=== PATIENT | female | born 1955 | race Caucasian/White ===

== ENCOUNTER 2016-07-20 11:23 | Emergency (ER) | payer OTHER ==
[~2016-07-20] VITALS: Ht 165.1 cm; Wt 123.0 kg
[~2016-07-20 11:23] MED LIST: AMIT25TA9 PO; CRAN1CAP15 PO; DICY20TA35 PO; FURO40TA3 PO; LISI2.5T5 PO; METO1TAB55 PO; NITR-5 PO; NYST80OI TOP; ROSU40TA PO; SALI1SPR3 INTNAS; SERT-234 PO; SUCR1TAB29 PO
[2016-07-20 11:25] VITALS: Ht 165.1 cm; Wt 123.0 kg
[2016-07-20] MEDS ORDERED: FENTANYL CITRATE INJ 50 MCG/1 ML 2 ML VIAL IV STA (12:02)
[2016-07-20] MEDS ORDERED: ONDANSETRON INJ 2 MG/ML 2 ML VIAL IV STA (12:02)
[2016-07-20] MEDS ORDERED: SODIUM CHLORIDE 0.9% 1000ML 1,000 ML IV STA (12:02)
[2016-07-20 12:48] LABS: ISTAT CREATININE 0.5 mg/dl (0.6-1.3); ISTAT IONIZED CALCIUM 1.16 mmol/l (1.12-1.32)
[2016-07-20 13:19] LABS: ALKALINE PHOSPHATASE 98 U/L (45-117); ALT/SGPT 49 U/L (12-78); AST/SGOT 66 U/L (15-37); BLOOD UREA NITROGEN 9 mg/dl (7-18); BUN/CREATININE RATIO 14.1 (10-20); CARBON DIOXIDE 27 mmol/L (21-32); CHLORIDE 103 mmol/L (98-107); CKMB/CK RATIO 4.6 (0-3.0); CREATININE 0.65 mg/dl (0.60-1.20); GLUCOSE 174 mg/dl (70-99); POTASSIUM 4.3 mmol/L (3.5-5.1); SODIUM 138 mmol/L (136-145)
--- NOTE | 2016-07-20 13:26 | DIAGNOSTIC IMAGING REPORT ---
CT ANGIOGRAM OF THE CHEST CLINICAL HISTORY: Atypical chest pain. COMPARISON STUDY: Chest x-ray dated 07/15/2016. Chest CT dated 10/04/2010. TECHNIQUE: Following the IV administration of 119 cc of Optiray 320, CT angiogram of the chest was performed from the upper abdomen to the thoracic inlet utilizing the pulmonary embolus protocol. Images are reviewed in the axial, sagittal, and coronal planes. 3-D MIPS images are created and assessed. IV contrast was administered without complication. The examination is degraded by large body habitus, with streak artifact from the patient's body wall abutting the CT gantry. CT DOSE: 2494.78 mGy.cm FINDINGS: Thyroid: Imaged portions of the thyroid gland are normal in size and attenuation. Thoracic aorta: There is minimal atherosclerotic calcification of the thoracic aorta, with is normal in caliber and demonstrates standard 3-vessel arch anatomy. No dissection is seen. Pulmonary vasculature: The pulmonary trunk is dilated, measuring 4.0 cm in diameter. This suggests pulmonary artery hypertension. There are no filling defects identified in main, lobar, or proximal segmental pulmonary branches to suggest pulmonary embolus. Evaluation of the peripheral branches is degraded by motion artifact. Heart: The heart is mildly enlarged and without pericardial effusion. Lungs and pleural spaces: Evaluation of the lung parenchyma is degraded by respiratory motion artifact. There is a small right pleural effusion and bibasilar consolidation. The trachea and central airways are clear. Mediastinum: There is no mediastinal lymphadenopathy. Aaliyah: Clear. Axillae: There is no axillary lymphadenopathy. Upper abdomen: The liver is cirrhotic in morphology. Splenomegaly is noted. There is a small hiatal hernia. There are prominent gastrohepatic lymph nodes, which measure up to 1.4 x 2.2 cm. Skeletal structures: The skeletal structures are osteopenic. No lytic or blastic bony lesions are seen. Degenerative change and hyperkyphosis are noted in the thoracic spine. IMPRESSION: 1. Motion degraded examination. 2. There is no evidence of pulmonary embolus in the main, lobar, or proximal segmental pulmonary arteries. 3. Small right pleural effusion and bibasilar dependent consolidation. This likely represents atelectasis. Correlate clinically for evidence of a mild infectious or inflammatory pneumonitis. 4. Cardiomegaly with evidence of pulmonary artery hypertension. 5. Cirrhosis and splenomegaly. See report of abdominal CT performed concurrently for detailed intra-abdominal findings. 6. Additional changes as above. Electronically signed by: Bravo Moe M.D. 07/20/2016 1:24 PM
[2016-07-20 13:29] LABS: BASO % 0.3 %; BASO ABS # 0.02 K/uL (0-0.2); COMPLETE YES; HEMATOCRIT 41.3 % (37-47); IG% 0.2 %; LYMPH % 26.9 %; LYMPH ABS # 1.55 K/uL (1.2-3.4); MEAN CORPUSCULAR HGB CONC 34.1 g/dl (32-36); MEAN PLATELET VOLUME 10.3 fL (7.4-10.4); MONO % 15.3 %; NEUT % 56.3 %; PLATELET COUNT 145 K/uL (130-400); RED BLOOD COUNT 4.86 M/uL (4.2-5.4); WHITE BLOOD COUNT 5.77 K/uL (4.8-10.8)
--- NOTE | 2016-07-20 13:34 | DIAGNOSTIC IMAGING REPORT ---
CT SCAN OF THE ABDOMEN AND PELVIS WITH IV CONTRAST CLINICAL HISTORY: Right flank pain. COMPARISON STUDY: Abdominal CT dated 07/15/2016. TECHNIQUE: Following the IV administration of 119 cc of Optiray 320, CT scan of the abdomen and pelvis is performed from the lung bases to the proximal femora. Images are reviewed in the axial, sagittal, and coronal planes. IV contrast was administered without complication. Automated dose control exposure was utilized. The examination is degraded by large body habitus, with streak artifact from the body wall abutting the CT gantry. CT DOSE: Reported separately and the concurrently performed CT scan of the chest. FINDINGS: Lung bases: The heart is enlarged and without pericardial effusion. There is a small right pleural effusion and bibasilar consolidation. There is a small hiatal hernia. Liver: The contrast-enhanced liver is cirrhotic in morphology and heterogeneous in attenuation. There is nodularity of the hepatic surface contour. The liver is enlarged, measuring 20.6 cm in length. There is evidence of hepatic steatosis. There is minimal central intrahepatic biliary ductal dilatation. The hepatic veins and portal veins are patent. There is recanalization of the periumbilical vein. Gallbladder: Surgically absent noting clips in the gallbladder fossa. Spleen: The spleen is enlarged, measuring 15 cm in length. Pancreas: Mildly atrophic and grossly unremarkable. Adrenal glands: Unremarkable. Kidneys: The contrast enhanced kidneys are normal in size and without hydronephrosis. The kidneys enhance symmetrically. Large retroperitoneal varicosities are identified with a left renal shunt. Abdominal vasculature: The abdominal aorta is normal in course and caliber noting mild atherosclerotic calcification. Bowel: The small bowel and colon are normal in course and caliber. The appendix is not identified and reported surgically absent. Peritoneum: There is no intraperitoneal free air or abdominal ascites. Lymphadenopathy: There are mildly enlarged gastrohepatic lymph nodes. The largest measures 1.4 x 2.2 cm. Prominent portacaval nodes measure up to 2.3 cm in length. There is no retroperitoneal, mesenteric, or pelvic lymphadenopathy. Pelvic viscera: The bladder is normal as visualized. Uterus is surgically absent. No adnexal lesion is seen Skeletal structures: The skeletal structures are osteopenic. Mild lumbosacral spondylosis is observed. No lytic or blastic lesions are seen. IMPRESSION: 1. There are no acute infectious or inflammatory findings in the abdomen or pelvis. 2. The liver is cirrhotic in morphology with evidence of steatosis. 3. Splenomegaly, recanalization of the periumbilical vein, and large retroperitoneal varicosities with a left renal shunt indicate portal hypertension. 4. Small right pleural effusion and bibasilar consolidation. This likely represents atelectasis. Correlate clinically for evidence of superimposed pneumonia. 5. Cardiomegaly. 6. Additional changes as detailed above. Electronically signed by: Bravo Moe M.D. 07/20/2016 1:32 PM
[2016-07-20] MEDS ORDERED: LORA-741 PO (14:23)
[2016-07-20] MEDS ORDERED: DOXY100C PO (14:25)
--- NOTE | 2016-07-20 14:25 | EMERGENCY ROOM VISIT NOTE ---
History Report prepared by Williams: Yash Hollingsworth Under the Supervision of: Dr. Jaya Page M.D. First contact with patient: 11:54 Chief Complaint: ABDOMINAL PAIN Stated Complaint: PAIN IN SIDE AND STOMACH-HERE LAST THU Nursing Triage Summary: continued abd pain from wed and doesn't feel any better History of Present Illness The patient is a 61 year old female who presents to the Emergency Room with complaints of worsening abdominal pain beginning 4 days ago. She has associated back and clavicle pain. She was seen in the ED for similar symptoms 4 days ago, but states that her symptoms have worsened since. The patient had a negative abdominal CT at her previous visit. She has a history of diabetes, renal failure , and liver problems. She has no history of shingles. The patient states that her blood sugars have been good lately. She denies any rashes, diarrhea, or leg swelling. She has a history of an appendectomy and cholecystectomy. The patient describes her pain as "sharp". She notes that she has been having some problems with constipation lately. Source of History: patient Onset: 4 days ago Position: abdomen Quality: sharp Timing: worsening Associated Symptoms: + back pain, No diarrhea Note: The patient denies any leg swelling. She has associated clavicle pain. Review of Systems See HPI for pertinent positives & negatives. A total of 10 systems reviewed and were otherwise negative. Past Medical & Surgical Medical Problems: (1) Depression (2) DM2 (diabetes mellitus, type 2) (3) Emphysema of lung (4) ROME (generalized anxiety disorder) (5) Gastroparesis (6) GERD (gastroesophageal reflux disease) (7) History of left heart catheterization (LHC) (8) HLD (hyperlipidemia) (9) HTN (hypertension) (10) IBS (irritable bowel syndrome) (11) Influenza A (12) Kidney stone (13) GARRETT on CPAP (14) Pneumonia (15) SIRS (systemic inflammatory response syndrome) Surgical Problems: (1) H/O esophagogastroduodenoscopy (2) History of appendectomy (3) History of cholecystectomy (4) S/P appendectomy (5) S/P cholecystectomy (6) S/P VA-BSO Family History Diabetes mellitus Gallbladder disease Heart disease Hypertension Kidney disease Kidney stones Social History Smoking Status: Never Smoker Alcohol Use: none Marital Status: Housing Status: lives with family Occupation Status: unemployed Current/Historical Medications Scheduled Amitriptyline Hcl (Elavil), 25 MG PO HS Aspirin (Aspirin Ec), 81 MG PO QAM Doxycycline Hyclate (Vibramycin), 100 MG PO BID Insulin Regular (Human) (Humulin R U-500 (Concentr), 130 UNITS SQ BID Lisinopril (Lisinopril), 2.5 MG PO QAM Metoclopramide Hcl (Reglan), 5 MG PO UD Multivitamin (Multivitamin), 1 TAB PO QAM Nitrofurantoin Monohyd Macrocr (Macrobid), 100 MG PO BID Nitroglycerin (Nitrostat), 0.4 MG UT PRN Omeprazole (Prilosec), 20 MG PO DAILY Rosuvastatin Calcium (Crestor), 40 MG PO HS Saline (Saline Nasal [place]), 2 SPRAYS INTNAS PRN Sucralfate (Carafate), 1 GM PO AC Scheduled PRN Lorazepam (Ativan), 0.5-1 MG PO TID PRN for Pain Nystatin (Topical) (Nystatin), 1 APPLN TOP BID PRN for PRN Polyethylene Glycol 3350 (Miralax), 17 GM PO BID PRN for Constipation Sertraline (Zoloft), 100 MG PO QAM PRN for Anxiety Solifenacin (Vesicare), 10 MG PO DAILY PRN for PRN Tramadol (Ultram), 100 MG PO Q6 PRN for Pain Allergies Coded Allergies: Ciprofloxacin (Verified Allergy, Unknown, MOUTH BLISTERS, HIVES, 07/20/16) Morphine (Verified Allergy, Unknown, HIVES, "DEATHLY ILL", THROWS UP, ) Oxycodone (Verified Allergy, Unknown, HIVES, VOMITING, 07/20/16) Penicillin V (Verified Allergy, Unknown, HIVES, 07/20/16) Physical Exam Vital Signs Date Time Temp Pulse Resp B/P Pulse Ox O2 Delivery O2 Flow Rate FiO2 07/20/16 14:47 36.8 83 18 129/61 97 07/20/16 11:25 36.8 85 20 153/78 93 Room Air Physical Exam GENERAL: Patient is uncomfortable appearing and in mild distress. HEENT: No acute trauma, normocephalic atraumatic, mucous membranes moist, no nasal congestion, no scleral icterus. NECK: No stridor, no adenopathy, no meningismus, trachea is midline. LUNGS: No dyspnea. Clear to auscultation and equal bilaterally. No wheeze, no rhonchi. HEART: Regular rate and rhythm. No murmurs, rubs, gallops appreciated. CHEST: Vague right sided clavicle tenderness. ABDOMEN: Vague right sided abdominal tenderness. Soft, bowel sounds positive, no masses appreciated, no peritonitis. BACK: No midline tenderness, no CVA tenderness EXTREMITIES: Normal motion all extremities, no cyanosis, no edema. NEUROLOGIC: Alert and oriented, no acute motor or sensory deficits, no focal weakness, cranial nerves grossly intact. SKIN: No rash, no jaundice, no diaphoresis. Medical Decision & Procedures ER Provider Diagnostic Interpretation: X ray results and stated below per my interpretation and radiologist interpretation. CT SCAN OF THE ABDOMEN AND PELVIS WITH IV CONTRAST FINDINGS: Lung bases: The heart is enlarged and without pericardial effusion. There is a small right pleural effusion and bibasilar consolidation. There is a small hiatal hernia. Liver: The contrast-enhanced liver is cirrhotic in morphology and heterogeneous in attenuation. There is nodularity of the hepatic surface contour. The liver is enlarged, measuring 20.6 cm in length. There is evidence of hepatic steatosis. There is minimal central intrahepatic biliary ductal dilatation. The hepatic veins and portal veins are patent. There is recanalization of the periumbilical vein. Gallbladder: Surgically absent noting clips in the gallbladder fossa. Spleen: The spleen is enlarged, measuring 15 cm in length. Pancreas: Mildly atrophic and grossly unremarkable. Adrenal glands: Unremarkable. Kidneys: The contrast enhanced kidneys are normal in size and without hydronephrosis. The kidneys enhance symmetrically. Large retroperitoneal varicosities are identified with a left renal shunt. Abdominal vasculature: The abdominal aorta is normal in course and caliber noting mild atherosclerotic calcification. Bowel: The small bowel and colon are normal in course and caliber. The appendix is not identified and reported surgically absent. Peritoneum: There is no intraperitoneal free air or abdominal ascites. Lymphadenopathy: There are mildly enlarged gastrohepatic lymph nodes. The largest measures 1.4 x 2.2 cm. Prominent portacaval nodes measure up to 2.3 cm in length. There is no retroperitoneal, mesenteric, or pelvic lymphadenopathy. Pelvic viscera: The bladder is normal as visualized. Uterus is surgically absent. No adnexal lesion is seen Skeletal structures: The skeletal structures are osteopenic. Mild lumbosacral spondylosis is observed. No lytic or blastic lesions are seen. IMPRESSION: 1. There are no acute infectious or inflammatory findings in the abdomen or pelvis. 2. The liver is cirrhotic in morphology with evidence of steatosis. 3. Splenomegaly, recanalization of the periumbilical vein, and large retroperitoneal varicosities with a left renal shunt indicate portal hypertension. 4. Small right pleural effusion and bibasilar consolidation. This likely represents atelectasis. Correlate clinically for evidence of superimposed pneumonia. 5. Cardiomegaly. 6. Additional changes as detailed above. Electronically signed by: Bravo Moe M.D. CT ANGIOGRAM OF THE CHEST FINDINGS: Thyroid: Imaged portions of the thyroid gland are normal in size and attenuation. Thoracic aorta: There is minimal atherosclerotic calcification of the thoracic aorta, with is normal in caliber and demonstrates standard 3-vessel arch anatomy. No dissection is seen. Pulmonary vasculature: The pulmonary trunk is dilated, measuring 4.0 cm in diameter. This suggests pulmonary artery hypertension. There are no filling defects identified in main, lobar, or proximal segmental pulmonary branches to suggest pulmonary embolus. Evaluation of the peripheral branches is degraded by motion artifact. Heart: The heart is mildly enlarged and without pericardial effusion. Lungs and pleural spaces: Evaluation of the lung parenchyma is degraded by respiratory motion artifact. There is a small right pleural effusion and bibasilar consolidation. The trachea and central airways are clear. Mediastinum: There is no mediastinal lymphadenopathy. Aaliyah: Clear. Axillae: There is no axillary lymphadenopathy. Upper abdomen: The liver is cirrhotic in morphology. Splenomegaly is noted. There is a small hiatal hernia. There are prominent gastrohepatic lymph nodes, which measure up to 1.4 x 2.2 cm. Skeletal structures: The skeletal structures are osteopenic. No lytic or blastic bony lesions are seen. Degenerative change and hyperkyphosis are noted in the thoracic spine. IMPRESSION: 1. Motion degraded examination. 2. There is no evidence of pulmonary embolus in the main, lobar, or proximal segmental pulmonary arteries. 3. Small right pleural effusion and bibasilar dependent consolidation. This likely represents atelectasis. Correlate clinically for evidence of a mild infectious or inflammatory pneumonitis. 4. Cardiomegaly with evidence of pulmonary artery hypertension. 5. Cirrhosis and splenomegaly. See report of abdominal CT performed concurrently for detailed intra-abdominal findings. 6. Additional changes as above. Electronically signed by: Bravo Moe M.D. Laboratory Results 07/20/16 13:14 Red Blood Count 4.86, Mean Corpuscular Volume 85.0, Mean Corpuscular Hemoglobin 29.0, Mean Corpuscular Hemoglobin Concent 34.1, Mean Platelet Volume 10.3, Neutrophils (%) (Auto) 56.3, Lymphocytes (%) (Auto) 26.9, Monocytes (%) (Auto) 15.3, Eosinophils (%) (Auto) 1.0, Basophils (%) (Auto) 0.3, Neutrophils # (Auto ) 3.25, Lymphocytes # (Auto) 1.55, Monocytes # (Auto) 0.88, Eosinophils # (Auto ) 0.06, Basophils # (Auto) 0.02 07/20/16 12:30 Test 07/20/16 12:30 07/20/16 12:31 07/20/16 13:14 Est Creatinine Clear Calc Drug Dose 119.7 ml/min Estimated GFR () 111.1 Estimated GFR (Non- 95.8 BUN/Creatinine Ratio 14.1 (10-20) Calcium Level 9.0 mg/dl (8.5-10.1) Total Bilirubin 0.7 mg/dl (0.2-1) Direct Bilirubin 0.2 mg/dl (0-0.2) Aspartate Amino Transf (AST/SGOT) 66 U/L (15-37) Alanine Aminotransferase (ALT/SGPT) 49 U/L (12-78) Alkaline Phosphatase 98 U/L (45-117) Total Creatine Kinase 63 U/L (26-192) Creatine Kinase MB 2.9 ng/ml (0.5-3.6) Creatine Kinase MB Ratio 4.6 (0-3.0) Troponin I < 0.015 ng/ml (0-0.045) Total Protein 7.9 gm/dl (6.4-8.2) Albumin 3.1 gm/dl (3.4-5.0) Lipase 69 U/L (73-393) Chemistry Specimen Hemolysis Bedside Hemoglobin 15.0 g/dl (12.0-16.0) Bedside Hematocrit 44 % (37-47) Bedside Sodium 138 mEq/L (135-144) Bedside Potassium 5.3 mEq/L (3.3-5.0) Bedside Chloride 99 mEq/L (101-112) Bedside Total CO2 29 mEq/l (24-31) Anion Gap 16.0 mmol/L (16-25) Bedside Blood Urea Nitrogen 13 mg/dl (7-18) Bedside Creatinine 0.5 mg/dl (0.6-1.3) Bedside Glucose (other) 180 mg/dl (70-99) Bedside Ionized Calcium (Darell) 1.16 mmol/l (1.12-1.32) White Blood Count 5.77 K/uL (4.8-10.8) Red Blood Count 4.86 M/uL (4.2-5.4) Hemoglobin 14.1 g/dL (12.0-16.0) Hematocrit 41.3 % (37-47) Mean Corpuscular Volume 85.0 fL (80-100) Mean Corpuscular Hemoglobin 29.0 pg (25-34) Mean Corpuscular Hemoglobin Concent 34.1 g/dl (32-36) Platelet Count 145 K/uL (130-400) Mean Platelet Volume 10.3 fL (7.4-10.4) Neutrophils (%) (Auto) 56.3 % Lymphocytes (%) (Auto) 26.9 % Monocytes (%) (Auto) 15.3 % Eosinophils (%) (Auto) 1.0 % Basophils (%) (Auto) 0.3 % Neutrophils # (Auto) 3.25 K/uL (1.4-6.5) Lymphocytes # (Auto) 1.55 K/uL (1.2-3.4) Monocytes # (Auto) 0.88 K/uL (0.11-0.59) Eosinophils # (Auto) 0.06 K/uL (0-0.5) Basophils # (Auto) 0.02 K/uL (0-0.2) RDW Standard Deviation 46.0 fL (36.4-46.3) RDW Coefficient of Variation 14.9 % (11.5-14.5) Immature Granulocyte % (Auto) 0.2 % Immature Granulocyte # (Auto) 0.01 K/uL (0.00-0.02) Laboratory results as reviewed by me. Medications Administered Medications (Trade) Dose Ordered Sig/Penny Route Start Time Stop Time Status Last Admin Dose Admin Sodium Chloride (Nss 1000ml) 1,000 ml @ 999 mls/hr Q1H1M STAT IV 07/20/16 12:02 07/20/16 13:02 DC 07/20/16 13:18 999 MLS/HR Fentanyl Citrate (Fentanyl Inj) 100 mcg NOW STAT IV 07/20/16 12:02 07/20/16 12:04 DC 07/20/16 12:48 100 MCG Ondansetron HCl (Zofran Inj) 4 mg NOW STAT IV 07/20/16 12:02 07/20/16 12:04 DC 07/20/16 12:48 4 MG Doxycycline Hyclate (Vibramycin Cap) 100 mg ONE ONCE PO 07/20/16 14:30 07/20/16 14:36 DC 07/20/16 14:38 100 MG ECG Indication: chest pain Rate (beats per minute): 83 Rhythm: normal sinus Findings: no acute ischemic change, no ectopy ED Course 1156: The patient was evaluated in room A10. A complete history and physical exam was performed. 1202: Ordered Zofran 4 mg IV, Fentanyl Inj 100 mcg IV, NSS 1000 mL @ 999 mL/hr IV. 1416: Reevaluated the patient. She would like to go home. Discussed results and discharge instructions: she verbalized understanding and agreement. 1430: The patient is ready for discharge. Ordered Vibramycin Cap 100 mg PO. Medical Decision Differential: Renal Colic, Pyelonephritis, Hydronephrosis, Appendicitis, Diverticulitis, Retroperitoneal Bleed/Infection, Aortic Pathology, MSK, Neurologic Pathology, amongst other pathologies entertained. 61 yr old female arrives with complaint of right abdominal pain radiating to right chest, clavicle and associated SHOB. Just here a few days ago with normal work-up though pain continues. Highly allergic to narcotics but tolerates Fentanyl without issue. Given persistent pain and complaints felt compelled to repeat CT abdo/pelv and with pleuritic component and right chest pain to rule out PE with CT. Labs, etc look good. She does have a slight increase in right pleural effusion which could be infectious and macrobid would not treat. Given this is second visit, continued pain and uncomfortable we will do Levaquin. She notes she is unable to sleep with this due to discomfort. Already tried tramadol without improvement. Allergic to all PO narcotics, thus will try some ativan instead. She is aware of risks and restrictions. Impression Primary Impression: Pleural effusion on right Scribe Attestation The scribe's documentation has been prepared under my direction and personally reviewed by me in its entirety. I confirm that the note above accurately reflects all work, treatment, procedures, and medical decision making performed by me. Departure Information Dispostion Home / Self-Care Prescriptions Doxycycline Hyclate (VIBRAMYCIN) 100 Mg Cap 100 MG PO BID for 10 Days, #20 CAP Prov: Jaya Page M.D. 07/20/16 Lorazepam (ATIVAN) 0.5 Mg Tab 0.5-1 MG PO TID Y for Pain, #15 TAB Prov: Jaya Page M.D. 07/20/16 Referrals Gilberto Hart M.D. (PCP) Patient Instructions [facility], [facility] Additional Instructions It may be your pain is due to the small amount of fluid below your right lung. This is possibly due to an infection. Keep well hydrated and make sure to periodically take deep breaths. Return if worsening pain, trouble breathing or other concerns. You have received a benzodiazepine medication prescription. These medications may cause drowsiness and should not be used with other sedative medications. Do not drive, drink alcohol, perform dangerous activities, nor make important decisions after taking these medications. buttermaker helper use or inappropriate use may lead to addiction. Follow up with your primary care provider in the next few days.
[2016-07-20] MEDS ORDERED: DOXYCYCLINE HYCLATE 100 MG CAP PO ONE (14:30)
[2016-07-20 14:47] VITALS: BP 129/61; PULSE 83; TEMP 36.8; O2SAT 97
[2017-01-31] MEDS ORDERED: MULT-506 PO (12:20)
[2017-01-31] MEDS ORDERED: NTRGSL/4 UT (15:11)
[2017-01-31] MEDS ORDERED: ASPI81TA28 PO (20:08)
[2017-01-31] MEDS ORDERED: SOLI10TA2 PO (20:08)
[2017-01-31] MEDS ORDERED: POLY335019 PO (20:08)
[2017-01-31] MEDS ORDERED: TRAM-10 PO (20:08)
[2017-01-31] MEDS ORDERED: ROSU40TA28 PO (21:50)
[2017-01-31] MEDS ORDERED: DTR/5 PO (23:48)
[2017-02-02] MEDS ORDERED: SPRN100 PO (13:12)
[2017-07-29] MEDS ORDERED: LSX80 PO (09:40)
== END 2016-07-20 14:48 | disposition home or self-care (01) ==
LOC: C.EDB 11:24 → C.EDA 14:48
DX: J90 Pleural effusion, not elsewhere classified (principal); E11.29 Type 2 diabetes mellitus with other diabetic kidney complication; N19 Unspecified kidney failure; E11.43 Type 2 diabetes mellitus with diabetic autonomic (poly)neuropathy; Z79.4 Long term (current) use of insulin; Z79.82 Long term (current) use of aspirin; I27.2 Other secondary pulmonary hypertension; K74.60 Unspecified cirrhosis of liver; K21.9 Gastro-esophageal reflux disease without esophagitis; K44.9 Diaphragmatic hernia without obstruction or gangrene; K76.0 Fatty (change of) liver, not elsewhere classified; K76.6 Portal hypertension; E78.5 Hyperlipidemia, unspecified; I10 Essential (primary) hypertension; G47.33 Obstructive sleep apnea (adult) (pediatric); M47.817 Spondylosis without myelopathy or radiculopathy, lumbosacral region

== ENCOUNTER 2017-01-31 20:34 | Inpatient (IN) | payer OTHER ==
[~2017-01-31] VITALS: Ht 165.1 cm; Wt 121.7 kg
[~2017-01-31 20:34] MED LIST changes: +ASPI81TA28 PO; -CRAN1CAP15 PO; -DICY20TA35 PO; -FURO40TA3 PO; +MULT-506 PO; -NITR-5 PO; +NTRGSL/4 UT; +POLY335019 PO; +SOLI10TA2 PO; +TRAM-10 PO
[2017-01-31 21:31] LABS: BASO % 0.3 %; BASO ABS # 0.02 K/uL (0-0.2); COMPLETE YES; EOS % 1.2 %; IG% 0.1 %; LYMPH % 28.4 %; LYMPH ABS # 2.21 K/uL (1.2-3.4); MEAN CELL VOLUME 87.6 fL (80-100); MEAN CORPUSCULAR HEMOGLOBIN 29.9 pg (25-34); MEAN CORPUSCULAR HGB CONC 34.2 g/dl (32-36); MEAN PLATELET VOLUME 11.5 fL (7.4-10.4); MONO % 16.4 %; NEUT % 53.6 %; PLATELET COUNT 164 K/uL (130-400); RED BLOOD COUNT 5.71 M/uL (4.2-5.4); WHITE BLOOD COUNT 7.79 K/uL (4.8-10.8)
[2017-01-31] MEDS ORDERED: INSUINJ2 SC (21:37)
--- NOTE | 2017-01-31 21:42 | DIAGNOSTIC IMAGING REPORT ---
CHEST ONE VIEW PORTABLE CLINICAL HISTORY: CHEST PAIN dyspnea COMPARISON STUDY: 07/15/2016 FINDINGS: Mild stable cardiomegaly. Lungs are clear. Diaphragms are smooth. IMPRESSION: Mild stable cardiomegaly. Otherwise negative study The above report was generated using voice recognition software. It may contain grammatical, syntax or spelling errors. Electronically signed by: Aneesh Rodriguez M.D. 01/31/2017 9:40 PM Dictated Date/Time: 01/31/2017 9:40 PM
[2017-01-31 21:46] LABS: ALT/SGPT 48 U/L (12-78); BLOOD UREA NITROGEN 19 mg/dl (7-18); BUN/CREATININE RATIO 16.8 (10-20); CALCIUM 10.1 mg/dl (8.5-10.1); CARBON DIOXIDE 31 mmol/L (21-32); CHLORIDE 96 mmol/L (98-107); GLUCOSE 228 mg/dl (70-99); POTASSIUM 3.7 mmol/L (3.5-5.1); SODIUM 137 mmol/L (136-145)
[2017-01-31] MEDS ORDERED: OMEP20CA9 PO (21:49)
[2017-01-31 21:50] LABS: ALKALINE PHOSPHATASE 95 U/L (45-117); AST/SGOT 58 U/L (15-37)
[2017-01-31] MEDS ORDERED: SNG10 PO (21:50)
[2017-01-31] MEDS ORDERED: EMPA1TAB PO (21:50)
[2017-01-31] MEDS ORDERED: LSX40 PO (21:50)
[2017-01-31] MEDS ORDERED: AMT25 PO (21:50)
[2017-01-31] MEDS ORDERED: ROSU40TA18 PO (21:50)
[2017-01-31] MEDS ORDERED: ATV5X PO (21:50)
[2017-01-31] MEDS ORDERED: METO10TA3 PO (21:50)
[2017-01-31] MEDS ORDERED: LSN25 PO (21:50)
[2017-01-31] MEDS ORDERED: DTR5 PO (21:50)
[2017-01-31] MEDS ORDERED: SPRN100 PO (21:50)
[2017-01-31] MEDS ORDERED: FLNIN/ NAE (21:50)
[2017-01-31] MEDS ORDERED: INSU1SOL SC (21:50)
[2017-01-31] MEDS ORDERED: ALBU18002 INH (21:50)
[2017-01-31] MEDS ORDERED: PHEN-1043 PO (21:50)
[2017-01-31] MEDS ORDERED: METO2.5T PO (21:56)
[2017-01-31] MEDS ORDERED: CRANCAP4 PO (21:56)
[2017-01-31] MEDS ORDERED: DOXY1TAB6 PO (21:56)
[2017-01-31] MEDS ORDERED: NITROGLYCERIN OINT 2% 1GM PACKET EXT STA (21:57)
[2017-01-31] MEDS ORDERED: NITROGLYCERIN OINT 2% 1GM PACKET ONE (22:05)
--- NOTE | 2017-01-31 22:50 | EMERGENCY ROOM VISIT NOTE ---
History Report prepared by Williams: Angelina Sutton Under the Supervision of: Dr. Medhi Woodard M.D. (Angelina Sutton) First contact with patient: 20:44 Chief Complaint: WEAKNESS Stated Complaint: WEAKNESS, SOB, CHEST DISCOMFORT History of Present Illness The patient is a 61 year old female who presents to the Emergency Room with complaints of an episode of weakness starting today. The patient reports that she went to her production solderer yesterday for her annual check-up and was started on Lasix. She states she has been taking them. The patient reports that this morning she had some wheezing and this evening started to become short of breath with exertion. She states that she started becoming short of breath while doing laundry and then started to experience weakness and diaphoresis. She reports that she had chest pain that radiated to her left arm and neck. She reports that her production solderer told her to call the ambulance if she experienced any symptoms. The patient states that as she rested and waited for the ambulance , the pain subsided. The patient notes that she took an Aspirin this morning. The patient denies fevers and chills. The patient notes a history of diabetes, hypertension, skin cancer, and MRSA. Source of History: patient Onset: this evening Position: other (global) Quality: other (global) Timing: other (episode) Modifying Factors (Worsening): exertion Modifying Factors (Relieving): rest Associated Symptoms: + diaphoresis, + neck pain, + chest pain, + SOB, No fevers, No chills Note: The patient complains of radiating pain into her arm. Review of Systems See HPI for pertinent positives & negatives. A total of 10 systems reviewed and were otherwise negative. Past Medical & Surgical Medical Problems: (1) Depression (2) DM2 (diabetes mellitus, type 2) (3) Emphysema of lung (4) ROME (generalized anxiety disorder) (5) Gastroparesis (6) GERD (gastroesophageal reflux disease) (7) History of left heart catheterization (LHC) (8) History of skin cancer (9) HLD (hyperlipidemia) (10) HTN (hypertension) (11) Hx MRSA infection (12) IBS (irritable bowel syndrome) (13) Influenza A (14) Kidney stone (15) GARRETT on CPAP (16) Pneumonia (17) Shortness of breath (18) SIRS (systemic inflammatory response syndrome) Surgical Problems: (1) H/O esophagogastroduodenoscopy (2) History of appendectomy (3) History of cholecystectomy (4) S/P appendectomy (5) S/P cholecystectomy (6) S/P VA-BSO Family History Diabetes mellitus Gallbladder disease Heart disease Hypertension Kidney disease Kidney stones Social History Smoking Status: Never Smoker Alcohol Use: none Marital Status: Housing Status: lives with family Occupation Status: unemployed Current/Historical Medications Scheduled Amitriptyline HCl (Amitriptyline HCl), 25 MG PO HS Aspirin (Aspirin Ec), 81 MG PO QAM Cranberry-Vitamin C-Vitamin E (Cranberry Plus Vitamin C 4200-20-3 mg-Unit), 1 CAP PO BID Doxycycline Hyclate (Doxycycline Hyclate), 100 MG PO BID Empagliflozin (Jardiance), 10 MG PO DAILY Furosemide (Lasix), 80 MG PO DAILY Insulin Regular (Human) (Humulin R U-500 (Concentr), 110 UNITS SC HS Insulin Regular (Human) (Humulin R U-500 Kwikpen), 160 UNITS SC QAM Lisinopril (Lisinopril), 2.5 MG PO QAM Metolazone (Zaroxolyn), 2.5 MG PO 2-3 TIMES WEEK Montelukast Sod (Montelukast Sodium), 10 MG PO HS Multivitamin (Multivitamin), 1 TAB PO QAM Omeprazole (Prilosec), 20 MG PO DAILY Rosuvastatin Calcium (Rosuvastatin Calcium), 40 MG PO HS Sertraline (Zoloft), 100 MG PO DAILY Spironolactone (Spironolactone), 100 MG PO BID Sucralfate (Carafate), 1 TAB PO AC Scheduled PRN Albuterol Sulfate (Proair Respiclick), 2 PUFFS INH Q4H PRN for Chest Pain/Cough or SOB Fluticasone Propionate (Fluticasone Propionate), 2 SPRAYS SONALI HS PRN for Allergy Symptoms Lorazepam (Lorazepam), 0.5-1 MG PO TID PRN for Anxiety Nitroglycerin (Nitrostat), 0.4 MG UT UD PRN for Esophageal Spasm Oxybutynin Chloride (Ditropan), 1 TAB PO TID PRN for incontinence Phenazopyridine HCl (Phenazopyridine HCl), 200 MG PO PC PRN for Urination Pain Polyethylene Glycol 3350 (Miralax), 17 GM PO DAILY PRN for Constipation Tramadol (Ultram), 100 MG PO Q6H PRN for Pain Allergies Coded Allergies: Ciprofloxacin (Verified Allergy, Unknown, MOUTH BLISTERS, HIVES, 07/20/16) Morphine (Verified Allergy, Unknown, HIVES, "DEATHLY ILL", THROWS UP, ) Oxycodone (Verified Allergy, Unknown, HIVES, VOMITING, 07/20/16) Penicillin V (Verified Allergy, Unknown, HIVES, 07/20/16) Physical Exam Vital Signs Date Time Temp Pulse Resp B/P (MAP) Pulse Ox O2 Delivery O2 Flow Rate FiO2 01/31/17 22:10 86 20 128/73 01/31/17 21:22 94 Room Air 01/31/17 21:22 94 Room Air 01/31/17 21:13 83 01/31/17 21:06 36.9 84 22 138/71 94 Room Air 01/31/17 21:00 94 Room Air Physical Exam GENERAL: Patient is a healthy-appearing well-nourished HEAD: Normocephalic atraumatic EYES: Ocular movements intact pupils equal and react to light OROPHARYNX mucous membranes are moist no exudates present no erythema or edema present NECK: Supple no nuchal rigidity CHEST: Good equal expansion LUNGS: Clear and equal to auscultation CARDIAC: Normal S1 and S2 ABDOMEN: Soft nontender no guarding BACK: No CVA tenderness EXTREMITIES: No pain upon palpation normal muscle strength in all groups no clubbing cyanosis or edema NEURO: Patient is following commands and answering questions appropriately. Alert and oriented x3 Cranial Nerves 2-12 grossly intact Medical Decision & Procedures ER Provider Diagnostic Interpretation: Radiology results as stated below per my review and radiologist interpretation: CHEST ONE VIEW PORTABLE CLINICAL HISTORY: CHEST PAIN dyspnea COMPARISON STUDY: 07/15/2016 FINDINGS: Mild stable cardiomegaly. Lungs are clear. Diaphragms are smooth. IMPRESSION: Mild stable cardiomegaly. Otherwise negative study The above report was generated using voice recognition software. It may contain grammatical, syntax or spelling errors. Electronically signed by: Aneesh Rodriguez M.D. 01/31/2017 9:40 PM Dictated Date/Time: 01/31/2017 9:40 PM Laboratory Results Test 01/31/17 21:13 Immature Granulocyte % (Auto) 0.1 % White Blood Count 7.79 K/uL (4.8-10.8) Red Blood Count 5.71 M/uL (4.2-5.4) Hemoglobin 17.1 g/dL (12.0-16.0) Hematocrit 50.0 % (37-47) Mean Corpuscular Volume 87.6 fL (80-100) Mean Corpuscular Hemoglobin 29.9 pg (25-34) Mean Corpuscular Hemoglobin Concent 34.2 g/dl (32-36) Platelet Count 164 K/uL (130-400) Mean Platelet Volume 11.5 fL (7.4-10.4) Neutrophils (%) (Auto) 53.6 % Lymphocytes (%) (Auto) 28.4 % Monocytes (%) (Auto) 16.4 % Eosinophils (%) (Auto) 1.2 % Basophils (%) (Auto) 0.3 % Neutrophils # (Auto) 4.18 K/uL (1.4-6.5) Lymphocytes # (Auto) 2.21 K/uL (1.2-3.4) Monocytes # (Auto) 1.28 K/uL (0.11-0.59) Eosinophils # (Auto) 0.09 K/uL (0-0.5) Basophils # (Auto) 0.02 K/uL (0-0.2) Immature Granulocyte # (Auto) 0.01 K/uL (0.00-0.02) Prothrombin Time 12.0 SECONDS (9.0-12.0) Prothromb Time International Ratio 1.1 (0.9-1.1) Total Bilirubin 0.9 mg/dl (0.2-1) Direct Bilirubin mg/dl (0-0.2) Aspartate Amino Transf (AST/SGOT) 58 U/L (15-37) Alanine Aminotransferase (ALT/SGPT) 48 U/L (12-78) Alkaline Phosphatase 95 U/L (45-117) Pro-B-Type Natriuretic Peptide 23 pg/ml (0-900) Total Protein 8.9 gm/dl (6.4-8.2) Albumin 3.6 gm/dl (3.4-5.0) Lipase 171 U/L (73-393) Chemistry Specimen Hemolysis Labs reviewed by ED physician. Medications Administered Medications (Trade) Dose Ordered Sig/Penny Route Start Time Stop Time Status Last Admin Dose Admin Nitroglycerin (Nitroglycerin 2% Oint) 1 inch NOW STAT EXT 01/31/17 21:57 01/31/17 21:59 DC 01/31/17 22:08 1 INCH ECG Indication: weakness Rate (beats per minute): 78 Rhythm: normal sinus Findings: no acute ischemic change, no ectopy ED Course 2043: Past medical records reviewed. The patient was evaluated in room A11B. A complete history and physical examination was performed. 2156: Ordered Nitroglycerin 1 inch EXT. 2201: I discussed the patient's case with Dr. Murillo, she has agreed to evaluate the patient for further management and care. Medical Decision Medication Reconciliation: I attest that I have personally reviewed the patient' s current medication list Blood Pressure Screening: Patient was found to have an elevated blood pressure and will be further evaluated by the hospitalist. Differential diagnosis: Etiologies such as cardiac ischemia, aortic dissection, pulmonary embolism, pneumonia, pneumothorax, musculoskeletal, infections, pericarditis, myocarditis , esophageal rupture, gastrointestinal, as well as others were entertained. This is a 61-year-old female who presents emergency department complaining of chest pain. The patient has a normal EKG however she has elevations in her CK and MB fraction. I did discuss the case with the hospitalist service who agreed to admit the patient. Patient family were in agreement with the treatment plan. Consults Time Called: 2158 Consulting Physician: Dr. Murillo Returned Call: 2201 I discussed the patient's case with Dr. Murillo, she has agreed to evaluate the patient for further management and care. Impression Primary Impression: Chest pain Scribe Attestation The scribe's documentation has been prepared under my direction and personally reviewed by me in its entirety. I confirm that the note above accurately reflects all work, treatment, procedures, and medical decision making performed by me. Departure Information Dispostion Being Evaluated By Hospitalist Referrals Gilberto Hart M.D. (PCP) Patient Instructions My [facility] Problem Qualifiers Primary Impression: Chest pain Chest pain type: unspecified Qualified Codes: R07.9 - Chest pain, unspecified
[2017-01-31] MEDS ORDERED: POLYETHYLENE (MIRALAX) 17 GM PACK PO PRN (23:30)
[2017-01-31] MEDS ORDERED: ACETAMINOPHEN 325 MG TAB PO PRN (23:30)
[2017-01-31] MEDS ORDERED: NITROGLYCERIN OINT 2% 1GM PACKET EXT PRN (23:30)
[2017-01-31] MEDS ORDERED: ASPIRIN 81 MG CHEW PO STA (23:42)
[2017-01-31 23:45] LABS: INR 1.1 (0.9-1.1)
[2017-01-31] MEDS ORDERED: GLUCOSE 40% GEL 15 GM TUBE PO PRN (23:45)
[2017-01-31] MEDS ORDERED: GLUCAGON FOR INJ 1 MG VIAL SQ PRN (23:45)
[2017-01-31] MEDS ORDERED: GLUCOSE 10 TABS/TUBE PO PRN (23:45)
[2017-01-31] MEDS ORDERED: DEXTROSE 50% 50 ML SYR IV PRN (23:45)
[2017-01-31] MEDS ORDERED: FRS/80 PO (23:48)
[2017-01-31] MEDS ORDERED: OXYB5TAB74 PO (23:48)
[2017-02-01] VITALS (8 sets, daily range): BP systolic 94–151; BP diastolic 57–74; PULSE 77–91; TEMP 36.4–36.7; O2SAT 92–96; Ht 165.1 cm; Wt 121.7 kg
[2017-02-01] MEDS ORDERED: TRAMADOL HCL 50 MG TAB PO PRN
[2017-02-01] MEDS ORDERED: LORAZEPAM 0.5 MG TAB PO PRN
[2017-02-01] MEDS ORDERED: FLUTICASONE PROPIONATE NA SPR 16 GM BTL NAE PRN
[2017-02-01] MEDS ORDERED: ALBUTEROL HFA 8 GM INHALER INH PRN
[2017-02-01] MEDS ORDERED: PHARMACY GLYCEMIC MGMT CONSULT PRN (00:27)
[2017-02-01] MEDS ORDERED: FLUCONAZOLE 100 MG TAB PO STA (00:28)
[2017-02-01] MEDS ORDERED: INSULIN ASPART 100 UNITS/ML 3 ML PEN SC STA (00:43)
[2017-02-01] MEDS ORDERED: INSULIN GLARGINE SOLOSTAR 100 UNITS/ML 3 ML PEN SC STA (00:44)
[2017-02-01] MEDS: ROSUVASTATIN CALCIUM 20 MG TAB PO SCH ×2 (01:02→19:28)
[2017-02-01 02:58] LABS: HEMATOCRIT 48.3 % (37-47); MEAN CELL VOLUME 86.7 fL (80-100); MEAN CORPUSCULAR HEMOGLOBIN 28.9 pg (25-34); MEAN CORPUSCULAR HGB CONC 33.3 g/dl (32-36); MEAN PLATELET VOLUME 10.6 fL (7.4-10.4); PLATELET COUNT 168 K/uL (130-400); RED BLOOD COUNT 5.57 M/uL (4.2-5.4); WHITE BLOOD COUNT 8.02 K/uL (4.8-10.8)
[2017-02-01 03:15] LABS: BLOOD UREA NITROGEN 20 mg/dl (7-18); BUN/CREATININE RATIO 20.8 (10-20); CALCIUM 9.8 mg/dl (8.5-10.1); CARBON DIOXIDE 34 mmol/L (21-32); CHLORIDE 95 mmol/L (98-107); CREATININE 0.97 mg/dl (0.60-1.20); GLUCOSE 197 mg/dl (70-99); MAGNESIUM 1.9 mg/dl (1.8-2.4); POTASSIUM 3.9 mmol/L (3.5-5.1); SODIUM 138 mmol/L (136-145)
[2017-02-01 03:21] LABS: CHOLESTEROL 165 mg/dl (0-200); CHOLESTEROL/HDL RATIO 2.7; CKMB/CK RATIO 0.7 (0-3.0); HDL CHOLESTEROL 61 mg/dl; LDL CHOLESTEROL CALCULATED 83 mg/dl; TRIGLYCERIDES 105 mg/dl (0-150); VERY LOW DENSITY LIPOPROT CALC 21 mg/dl
[2017-02-01] MEDS ORDERED: INSULIN ASPART 100 UNITS/ML 3 ML PEN SC SCH (04:00)
[2017-02-01] MEDS ORDERED: SERT-234 PO (04:38)
[2017-02-01] MEDS ORDERED: SUCR1TAB29 PO (04:40)
--- NOTE | 2017-02-01 04:42 | History and Physical ---
History & Physical Date & Time of Service: Jan 31, 2017 at 23:53 Chief Complaint: Weakness, Sob, Chest Discomfort Primary Care Physician: Gilberto Hart M.D. History of Present Illness Source: patient, family, clinic records, hospital records 61 yo F with h/o RHF and diastolic dysfunction as well as cirrhosis presents to the ER for chest pain and shortness of breath while doing laundry at home. She states that she has gained 30 lbs in the last couple of weeks and her legs were very swollen. Review of outpatient records reflects a gradual weight trend up from 274 in Jul 2016 to 286 this week with a 6-8 pound weight gain in the last 3 -4 weeks. She went to see her outpatient transport tech, Dr. Perez, who noted borderline anasarca on exam and doubled her spironolactone and lasix, adding metolazone TIW, of which she reports taking one dose since getting the medication. Although edema was noted at that time, she has no edema present today. Abdominal exam is somewhat difficult as her abdomen is obese with multiple skin folds, but there is no pitting edema present. The patient states that she developed some leg cramps and also some chest pain while doing laundry today. Her pain was described as an ache and sat in her L anterior chest with radiation into her L jaw and neck and shoulder. She reports some SOB, sweating and legs getting shaky associated with this chest pain. She also reports severe fatigue and she has been nauseated since yesterday. She denies vomiting , diarrhea, or blood in her stool. She denies palpitations. She also reports a recent L cheek bx which was complicated by infection. She was initially on Keflex and developed some whitish vaginal discharge and urinary urgency with hematuria and incomplete voiding. She denies fevers or chills recently. She denies any pelvic or flank pain and has no abdominal tenderness on exam. Her wound was found to be MRSA and her abx was switched to doxycycline 3 days ago. 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 She also will be losing her dogs when she moves, as they have to get a home without stairs and cannot take the dogs with them. Past Medical/Surgical History Medical Problems: (1) Depression Status: Chronic (2) DM2 (diabetes mellitus, type 2) Status: Chronic (4) ROME (generalized anxiety disorder) Status: Chronic (5) Gastroparesis Status: Chronic (6) GERD (gastroesophageal reflux disease) Status: Chronic (7) History of left heart catheterization (LHC) Permanent Comment: normal 2001 Status: Chronic (8) HLD (hyperlipidemia) Status: Chronic (9) HTN (hypertension) Status: Chronic (10) IBS (irritable bowel syndrome) Status: Chronic (11) Kidney stone Status: Resolved (12) GARRETT on CPAP Status: Chronic NOTE: Pt reports a h/o Chrons Disease, however, there is no record of this diagnosis Surgical Problems: (1) H/O esophagogastroduodenoscopy Status: Chronic (4) S/P appendectomy Status: Chronic (5) S/P cholecystectomy Status: Chronic (6) S/P VA-BSO Status: Chronic Family History Diabetes mellitus Gallbladder disease Heart disease Hypertension Kidney disease Kidney stones Social History Smoking Status: Never Smoker Smokeless Tobacco Use: No Alcohol Use: none Drug Use: none Marital Status: Housing status: lives with significant other Occupational Status: unemployed Immunizations History of Influenza Vaccine: Yes Influenza Vaccine Date: Apr 18, 2016 History of Tetanus Vaccine?: No Tetanus Immunization Date: Apr 14, 2011 History of Pneumococcal: Yes Pneumococcal Date: May 27, 2006 History of Hepatitis B Vaccine: No Multi-Drug Resistant Organisms History of MDRO: Yes Type of MDRO: MRSA Allergies Coded Allergies: Ciprofloxacin (Verified Allergy, Unknown, MOUTH BLISTERS, HIVES, 07/20/16) Morphine (Verified Allergy, Unknown, HIVES, "DEATHLY ILL", THROWS UP, ) Oxycodone (Verified Allergy, Unknown, HIVES, VOMITING, 07/20/16) Penicillin V (Verified Allergy, Unknown, HIVES, 07/20/16) Home Medications Scheduled Amitriptyline HCl (Amitriptyline HCl), 25 MG PO HS Aspirin (Aspirin Ec), 81 MG PO QAM Cranberry-Vitamin C-Vitamin E (Cranberry Plus Vitamin C 4200-20-3 mg-Unit), 1 CAP PO BID Doxycycline Hyclate (Doxycycline Hyclate), 100 MG PO BID Empagliflozin (Jardiance), 10 MG PO DAILY Furosemide (Lasix), 80 MG PO DAILY Insulin Regular (Human) (Humulin R U-500 (Concentr), 110 UNITS SC HS Insulin Regular (Human) (Humulin R U-500 Kwikpen), 160 UNITS SC QAM Lisinopril (Lisinopril), 2.5 MG PO QAM Metolazone (Zaroxolyn), 2.5 MG PO 2-3 TIMES WEEK Montelukast Sod (Montelukast Sodium), 10 MG PO HS Multivitamin (Multivitamin), 1 TAB PO QAM Omeprazole (Prilosec), 20 MG PO DAILY Rosuvastatin Calcium (Rosuvastatin Calcium), 40 MG PO HS Spironolactone (Spironolactone), 100 MG PO BID Scheduled PRN Albuterol Sulfate (Proair Respiclick), 2 PUFFS INH Q4H PRN for Chest Pain/Cough or SOB Fluticasone Propionate (Fluticasone Propionate), 2 SPRAYS SONALI HS PRN for Allergy Symptoms Lorazepam (Lorazepam), 0.5-1 MG PO TID PRN for Anxiety Nitroglycerin (Nitrostat), 0.4 MG UT UD PRN for Esophageal Spasm Oxybutynin Chloride (Ditropan), 1 TAB PO TID PRN for incontinence Phenazopyridine HCl (Phenazopyridine HCl), 200 MG PO PC PRN for Urination Pain Polyethylene Glycol 3350 (Miralax), 17 GM PO DAILY PRN for Constipation Tramadol (Ultram), 100 MG PO Q6H PRN for Pain Review of Systems At least ten systems were reviewed and negative except as indicated in HPI. Physical Exam Vital Signs Date Time Temp Pulse Resp B/P (MAP) Pulse Ox O2 Delivery O2 Flow Rate FiO2 01/31/17 23:12 88 18 112/63 94 01/31/17 22:10 86 20 128/73 01/31/17 21:22 94 Room Air 01/31/17 21:22 94 Room Air 01/31/17 21:13 83 01/31/17 21:06 36.9 84 22 138/71 94 Room Air 01/31/17 21:00 94 Room Air GEN: obese, in no acute distress, alert and appropriate, no conversational dyspnea HEENT: L cheek shave bx site, nondraining wound, no erythema, covered with dry gauze, PERRL, normal non-icteric sclerae, MMM, pharynx non-acute CARDIO: reg rate, S1/2 heard without m/g/r, no JVD LUNGS: CTA bilaterally, no crackles, rales or wheezes, good diaphragmatic excursion ABD: soft, obese, non-tender, non-distended, no rebound or guarding, +BS, no CVA tenderness EXTREMITY: RP and DP palpable 2+ bilat, no LE swelling or edema, extremities are warm and well-perfused NEURO: CN 2-12 grossly intact, sensation intact throughout MUSC: 5/5 strength throughout, moves all extremities equally SKIN: warm and dry and wound as above. Diagnostics Laboratory Results 02/01/17 02:38 02/01/17 02:38 Test 01/31/17 21:13 02/01/17 02:38 02/01/17 04:22 Immature Granulocyte % (Auto) 0.1 % White Blood Count 7.79 K/uL (4.8-10.8) Red Blood Count 5.71 M/uL (4.2-5.4) 5.57 M/uL (4.2-5.4) Hemoglobin 17.1 g/dL (12.0-16.0) Hematocrit 50.0 % (37-47) Mean Corpuscular Volume 87.6 fL (80-100) 86.7 fL (80-100) Mean Corpuscular Hemoglobin 29.9 pg (25-34) 28.9 pg (25-34) Mean Corpuscular Hemoglobin Concent 34.2 g/dl (32-36) 33.3 g/dl (32-36) Platelet Count 164 K/uL (130-400) Mean Platelet Volume 11.5 fL (7.4-10.4) 10.6 fL (7.4-10.4) Neutrophils (%) (Auto) 53.6 % Lymphocytes (%) (Auto) 28.4 % Monocytes (%) (Auto) 16.4 % Eosinophils (%) (Auto) 1.2 % Basophils (%) (Auto) 0.3 % Neutrophils # (Auto) 4.18 K/uL (1.4-6.5) Lymphocytes # (Auto) 2.21 K/uL (1.2-3.4) Monocytes # (Auto) 1.28 K/uL (0.11-0.59) Eosinophils # (Auto) 0.09 K/uL (0-0.5) Basophils # (Auto) 0.02 K/uL (0-0.2) Immature Granulocyte # (Auto) 0.01 K/uL (0.00-0.02) Prothrombin Time 12.0 SECONDS (9.0-12.0) Prothromb Time International Ratio 1.1 (0.9-1.1) Total Bilirubin 0.9 mg/dl (0.2-1) Direct Bilirubin mg/dl (0-0.2) Aspartate Amino Transf (AST/SGOT) 58 U/L (15-37) Alanine Aminotransferase (ALT/SGPT) 48 U/L (12-78) Alkaline Phosphatase 95 U/L (45-117) Pro-B-Type Natriuretic Peptide 23 pg/ml (0-900) Total Protein 8.9 gm/dl (6.4-8.2) Albumin 3.6 gm/dl (3.4-5.0) Lipase 171 U/L (73-393) Chemistry Specimen Hemolysis RDW Standard Deviation 44.3 fL (36.4-46.3) RDW Coefficient of Variation 14.0 % (11.5-14.5) Anion Gap 9.0 mmol/L (3-11) Est Creatinine Clear Calc Drug Dose 80.0 ml/min Estimated GFR () 73.1 Estimated GFR (Non- 63.0 BUN/Creatinine Ratio 20.8 (10-20) Calcium Level 9.8 mg/dl (8.5-10.1) Magnesium Level 1.9 mg/dl (1.8-2.4) Total Creatine Kinase 424 U/L (26-192) Creatine Kinase MB 3.0 ng/ml (0.5-3.6) Creatine Kinase MB Ratio 0.7 (0-3.0) Troponin I < 0.015 ng/ml (0-0.045) Triglycerides Level 105 mg/dl (0-150) Cholesterol Level 165 mg/dl (0-200) HDL Cholesterol 61 mg/dl LDL Cholesterol, Calculated 83 mg/dl VLDL Cholesterol, Calculated 21 mg/dl Cholesterol/HDL Ratio 2.7 Bedside Glucose 183 mg/dl (70-90) Results Past 24 Hours Test 01/31/17 21:13 Range/Units White Blood Count 7.79 4.8-10.8 K/uL Red Blood Count 5.71 4.2-5.4 M/uL Hemoglobin 17.1 12.0-16.0 g/dL Hematocrit 50.0 37-47 % Mean Corpuscular Volume 87.6 80-100 fL Mean Corpuscular Hemoglobin 29.9 25-34 pg Mean Corpuscular Hemoglobin Concent 34.2 32-36 g/dl Platelet Count 164 130-400 K/uL Mean Platelet Volume 11.5 7.4-10.4 fL Neutrophils (%) (Auto) 53.6 % Lymphocytes (%) (Auto) 28.4 % Monocytes (%) (Auto) 16.4 % Eosinophils (%) (Auto) 1.2 % Basophils (%) (Auto) 0.3 % Neutrophils # (Auto) 4.18 1.4-6.5 K/uL Lymphocytes # (Auto) 2.21 1.2-3.4 K/uL Monocytes # (Auto) 1.28 0.11-0.59 K/uL Eosinophils # (Auto) 0.09 0-0.5 K/uL Basophils # (Auto) 0.02 0-0.2 K/uL RDW Standard Deviation 44.8 36.4-46.3 fL RDW Coefficient of Variation 14.1 11.5-14.5 % Immature Granulocyte % (Auto) 0.1 % Immature Granulocyte # (Auto) 0.01 0.00-0.02 K/uL Prothrombin Time 12.0 9.0-12.0 SECONDS Prothromb Time International Ratio 1.1 0.9-1.1 Sodium Level 137 136-145 mmol/L Potassium Level 3.7 3.5-5.1 mmol/L Chloride Level 96 98-107 mmol/L Carbon Dioxide Level 31 21-32 mmol/L Anion Gap 10.0 3-11 mmol/L Blood Urea Nitrogen 19 7-18 mg/dl Creatinine 1.10 0.60-1.20 mg/dl Est Creatinine Clear Calc Drug Dose 71.7 ml/min Estimated GFR () 62.8 Estimated GFR (Non- 54.1 BUN/Creatinine Ratio 16.8 10-20 Random Glucose 228 70-99 mg/dl Calcium Level 10.1 8.5-10.1 mg/dl Total Bilirubin 0.9 0.2-1 mg/dl Direct Bilirubin 0-0.2 mg/dl Aspartate Amino Transf (AST/SGOT) 58 15-37 U/L Alanine Aminotransferase (ALT/SGPT) 48 12-78 U/L Alkaline Phosphatase 95 45-117 U/L Total Creatine Kinase 387 26-192 U/L Creatine Kinase MB 3.9 0.5-3.6 ng/ml Creatine Kinase MB Ratio 1.0 0-3.0 Troponin I < 0.015 0-0.045 ng/ml Pro-B-Type Natriuretic Peptide 23 0-900 pg/ml Total Protein 8.9 6.4-8.2 gm/dl Albumin 3.6 3.4-5.0 gm/dl Lipase 171 73-393 U/L Chemistry Specimen Hemolysis Diagnostic Radiology CHEST ONE VIEW PORTABLE CLINICAL HISTORY: CHEST PAIN dyspnea COMPARISON STUDY: 07/15/2016 FINDINGS: Mild stable cardiomegaly. Lungs are clear. Diaphragms are smooth. IMPRESSION: Mild stable cardiomegaly. Otherwise negative study EKG EKG: SR 78, no ST changes. Impression Assessment and Plan 61 yo F with h/o RHF and diastolic dysfunction as well as cirrhosis (not bx- proven) presents with chest pain and shortness of breath 1. chest pain-no h/o heart disease, but multiple risk factors. Initial workup is negative for ischemia. Trend serial enzymes, monitor on telemetry overnight. Nitro paste given in ER with resolution of chest pain, ASA given, on statin at home. Cardiology consult in am. 2. Shortness of breath-this appears to be secondary to the stress of her chest pain or deconditioning from obesity. She is not in respiratory distress or hypoxic. She has clear lungs and a normal CXR on exam with no clinical evidence of heart failure including no JVD or edema (abdomen tough to evaluate) . She was recently noted to have significant edema on outpatient exam two days ago with a subsequent increase in her outpatient diuretics as well as the addition of metolazone of which she took one dose. Will cont diuretics PO at current dosage but will hold metolazone in light of leg cramps. Further adjustments to be made by Cardiology. TTE ordered for am. Last TTE was in Jul 2016 revealing EF 60-64, concentriv LVH, no evidence of pulmonary HTN, Grade I DD. She does have a h/o GARRETT and sleeps in a recliner as she cannot lay flat to sleep. She also denies any recent dietary indiscretions with salt. Will cont low salt diet while admitted and daily standing weights. 3. GARRETT-on CPAP 4. melanoma s/b MRSA-contact precautions. She is set up for Mohs surgery in next couple of weeks as outpatient. Cont doxycycline regimen prescribed previously to finish 7 day course. 5. DMII-ISS/carb coverage and Lantus per protocol; appreci glycemic pharmacist consult 6. Cirrhosis 2/2 SMALL-no elevation in bilirubin or LFTs and no clinical evidence of encephalopathy with normal ammonia. She appears compensated from this standpoint. Liver bx 04/04 revealed no cirrhosis and mos steatosis 7. Depression-stable, cont Zoloft. 8. HTN-controlled, cont lis DVT proph-Lovenox Full Code Dispo-to telemetry DO George Hanks Hospitalist Level of Care Telemetry Resuscitation Status FULL RESUSCITATION VTE Prophylaxis VTE Risk Assessment Done? Y/N: Yes Risk Level: Moderate Given or contraindicated: Enoxaparin (Lovenox)SQ
[2017-02-01] MEDS: ONDANSETRON INJ 2 MG/ML 2 ML VIAL IV PRN ×2 (07:10→11:36)
[2017-02-01] MEDS: SUCRALFATE 1 GM TAB PO SCH ×3 (08:00→16:54)
[2017-02-01] MEDS ORDERED: PNEUMOCOCCAL ADMINISTRATION CHARGE ONE (08:00)
[2017-02-01] MEDS ORDERED: PNEUMOCOCCAL POLYSACCHARIDES 25 MCG/0.5 ML VIAL/SYR IM. ONE (08:00)
[2017-02-01] MEDS ORDERED: FUROSEMIDE 80 MG TAB PO SCH (09:00)
[2017-02-01] MEDS ORDERED: PERFLUTREN LIPID MICROSPHERE (DEFINITY) IV ONE (09:10)
[2017-02-01] MEDS: SERTRALINE HCL 100 MG TAB PO SCH (09:18)
[2017-02-01] MEDS: ASPIRIN 81 MG ECTAB PO SCH (09:19)
[2017-02-01] MEDS: DOXYCYCLINE HYCLATE 100 MG CAP PO SCH ×2 (09:20→19:27)
[2017-02-01] MEDS: LISINOPRIL 2.5 MG TAB PO SCH (09:20)
[2017-02-01] MEDS: PANTOprazole SOD 40 MG TAB PO SCH (09:20)
[2017-02-01] MEDS: MULTIVITAMIN TAB PO SCH (09:21)
[2017-02-01] MEDS: SPIRONOLACTONE 100 MG TAB PO SCH ×2 (09:21→16:54)
[2017-02-01] MEDS: ENOXAPARIN 40 MG/0.4 ML SYR SC SCH (09:21)
[2017-02-01] MEDS: HUMULIN-R U-500 80 UNITS in SYRINGE 0 ML SC SCH (09:45)
[2017-02-01] MEDS: INSULIN ASPART 100 UNITS/ML 3 ML PEN SC SCH ×4 (09:54→21:18)
[2017-02-01 10:23] LABS: CKMB/CK RATIO 0.4 (0-3.0)
--- NOTE | 2017-02-01 11:10 | ECHOCARDIOGRAM REPORT ---
*NOTICE TO RECEIVING [employer] This information is strictly Confidential and protected under [place] law. [place] law prohibits you from making any further disclosure of this information unless further disclosure is expressly permitted by the written consent of the person to whom it pertains or is authorized by law. A general authorization for the release of medical or other information is not sufficient for this purpose. Hospital accepts no responsibility if the information is made available to any other person, INCLUDING THE PATIENT. Interpretation Summary * Name: HOSSEIN MCALLISTER Study Date: 02/01/2017 08:40 AM BP: 106/69 mmHg * Patient Location: [facility]\S\N286\S\2 HR: 77 * : 1955 (M/d/yyyy) Gender: Female Height: 65 in * Age: 61 yrs Ethnicity: [place] Weight: 277 lb * Ordering Physician: Constance Murillo * Referring Physician: Self, Referred * Performed By: Jessica Doll RDCS * * Reason For Study: CHF * BSA: 2.3 m2 * The study was technically adequate. * Compared to prior study, there is no significant change. * -- Conclusions -- * Left ventricular systolic function is normal. * Ejection Fraction = 65-70%. * The left ventricular wall motion is normal. * Grade I diastolic dysfunction, (abnormal relaxation pattern). * No significant valvular pathology. Procedure Details * A contrast injection of Definity was performed to improve assessment of LV function. * Contrast was injected into an intravenous site in the left arm. * One vial of Definity ultrasound contrast was diluted in normal saline to a total volume of 10 ml. A total of '2' ml of solution was administered during imaging. * Lot # [id number] of Definity utilized for procedure. * Expiration date MAR 06. * The attending nurse who injected the contrast agent was VENITA Carrasco RN. * A complete two-dimensional transthoracic echocardiogram was performed (2D, M-mode, Doppler and color flow Doppler). Left Ventricle * The left ventricle is normal in size. * There is no thrombus. * There is mild concentric left ventricular hypertrophy. * Ejection Fraction = 65-70%. * Left ventricular systolic function is normal. * The left ventricular wall motion is normal. Right Ventricle * The right ventricle is normal size. * The right ventricular systolic function is normal. Atria * The left atrium is mildly dilated. * Right atrial size is normal. * There is no evidence of atrial septal defect, but resolution does not allow assessment for a patent foramen ovale. Mitral Valve * The mitral valve is normal. * There is no mitral valve stenosis. * Significant mitral regurgitation is absent. Tricuspid Valve * The tricuspid valve is normal. * There is no tricuspid stenosis. * Significant tricuspid regurgitation is absent. Aortic Valve * The aortic valve is not well visualized. * Aortic stenosis is absent. * There is no significant aortic regurgitation. Pulmonic Valve * The pulmonary valve is not well seen, but the Doppler examination is normal without significant regurgitation or stenosis. Great Vessels * The aortic root is normal size. Pericardium/Pleural * There is no pericardial effusion. Great Vessels * IVC not well visualized. Left Ventricular Diastolic Function * Grade I diastolic dysfunction, (abnormal relaxation pattern). MMode 2D Measurements and Calculations IVSd 0.85 cm IVSs 1.4 cm LVIDd 4.5 cm LVIDs 2.9 cm LVPWd 1.1 cm LVPWs 1.6 cm IVS/LVPW 0.78 FS 35.7 % EDV(Teich) 94.4 ml ESV(Teich) 32.7 ml EF(Teich) 65.4 % EDV(cubed) 93.6 ml ESV(cubed) 24.8 ml EF(cubed) 73.5 % % IVS thick 67.9 % % LVPW thick 45.6 % LV mass(C)d 149.8 grams LV mass(C)dI 65.9 grams/m\S\2 LV mass(C)s 154.5 grams LV mass(C)sI 68.0 grams/m\S\2 SV(Teich) 61.7 ml SI(Teich) 27.2 ml/m\S\2 SV(cubed) 68.8 ml SI(cubed) 30.3 ml/m\S\2 Ao root diam 3.0 cm Ao root area 7.0 cm\S\2 LA dimension 4.2 cm LA/Ao 1.4 LVAd ap4 32.6 cm\S\2 LVLd ap4 8.7 cm EDV(MOD-sp4) 99.6 ml LVAs ap4 15.7 cm\S\2 LVLs ap4 6.5 cm ESV(MOD-sp4) 31.8 ml EF(MOD-sp4) 68.1 % LVAd ap2 26.0 cm\S\2 LVLd ap2 7.7 cm EDV(MOD-sp2) 71.7 ml LVAs ap2 16.0 cm\S\2 LVLs ap2 7.0 cm ESV(MOD-sp2) 30.3 ml EF(MOD-sp2) 57.7 % SV(MOD-sp4) 67.8 ml SI(MOD-sp4) 29.8 ml/m\S\2 SV(MOD-sp2) 41.4 ml SI(MOD-sp2) 18.2 ml/m\S\2 Doppler Measurements and Calculations MV E max elva 68.6 cm/sec MV A max elva 99.8 cm/sec MV E/A 0.69 MV dec time 0.23 sec Ao V2 max 155.3 cm/sec Ao max PG 9.6 mmHg Ao max PG (full) 2.3 mmHg LV V1 max PG 7.3 mmHg LV V1 max 135.3 cm/sec
--- NOTE | 2017-02-01 11:30 | Pharmacy Progress Note ---
Glycemic Control Intl Consult Date of Service Feb 01, 2017. Scope Glycemic Pharmacist consulted by Dr Murillo on 02/01 for glycemic control and to write orders per [facility] inpatient glycemic control protocol Objective Weight (Kilograms): 122.400 Accuchecks BSG (last 24hrs): Test 01/31/17 21:13 02/01/17 00:53 02/01/17 02:38 02/01/17 04:22 Random Glucose 228 mg/dl (70-99) 197 mg/dl (70-99) Bedside Glucose 212 mg/dl (70-90) 183 mg/dl (70-90) Test 02/01/17 07:28 Bedside Glucose 193 mg/dl (70-90) Laboratory Data (last 24hrs) Test 01/31/17 21:13 02/01/17 02:38 Anion Gap 10.0 mmol/L 9.0 mmol/L BUN/Creatinine Ratio 16.8 20.8 Blood Urea Nitrogen 19 mg/dl 20 mg/dl Creatinine 1.10 mg/dl 0.97 mg/dl Potassium Level 3.7 mmol/L 3.9 mmol/L Sodium Level 137 mmol/L 138 mmol/L White Blood Count 7.79 K/uL 8.02 K/uL Red Blood Count 5.71 M/uL Hemoglobin 17.1 g/dL Hematocrit 50.0 % Mean Corpuscular Volume 87.6 fL Mean Corpuscular Hemoglobin 29.9 pg Mean Corpuscular Hemoglobin Concent 34.2 g/dl Platelet Count 164 K/uL Mean Platelet Volume 11.5 fL Neutrophils (%) (Auto) 53.6 % Lymphocytes (%) (Auto) 28.4 % Monocytes (%) (Auto) 16.4 % Eosinophils (%) (Auto) 1.2 % Basophils (%) (Auto) 0.3 % Neutrophils # (Auto) 4.18 K/uL Lymphocytes # (Auto) 2.21 K/uL Monocytes # (Auto) 1.28 K/uL Eosinophils # (Auto) 0.09 K/uL Basophils # (Auto) 0.02 K/uL HbA1c Recent Pertinent Medications Outpatient Anti-diabetic Regimen: *CONFIRMED W/ PATIENT * U-500 160 units qAM, 110 units qPM * Jardiance 10 mg daily The patient is currently receiving: * Basal insulin: Lantus 12 units x 1 dose overnight * Correctional Insulin: Novolog Correction per scale ACHS Goal Range: Low 100 mg/dL - High 140 mg/dL Correction Factor: 20 mg/dL/unit * Prandial insulin: Per carb ratio of 1 unit per 8 grams CHO consumed * Oral Agents: None at this time Assessment & Plan ASSESSMENT: * 61 y/o female admitted w/ chest pain. Type 2 diabetes managed w/ U-500 insulin and single oral agent as an outpatient. * I spoke w/ patient over the phone re: her outpatient control. She reports improvement since starting the U-500 BID injections, although did note some overnight lows (down to 34 mg/dL) * BSG this morning reasonable but the AM dose of U-500 that she took yesterday is most likely just wearing off (duration of action ~24 hours) * Will plan to initiate 1/2 of her U-500 doses - all drawn up in the pharmacy per policy * This can be adjusted up as needed * Will utilize Novolog w/ correction factor (based on wt/stress level of 2) to provide additional insulin for elevated BSGs * ADA & AACE recommend a goal blood sugar range 140-180 mg/dl for the majority of critically ill & non-critically ill patients. However, more stringent targets may be selected in individual cases. Will utilize more stringent goal of 100-140 mg/dl based on patient age & comorbidities. Additionally, tighter glycemic control is warranted to facilitate wound/infection healing. PLAN FOR INPATIENT GLYCEMIC CONTROL: * U-500 80 units daily with breakfast, 55 units with dinner * Continue Novolog ACHS + 0200 check * Goal 100-140 * CF 20 mg/dL/unit * REMOVE carb ratio * A1c pending * Please note that the plan above was derived based on current level of insulin resistance and hospital stress. These recommendations are appropriate for inpatient admission only. Plan of care upon discharge will need to be reassessed to avoid potential outpatient hypo/hyperglycemia. Thank you.
[2017-02-01] MEDS ORDERED: ONDANSETRON INJ 2 MG/ML 2 ML VIAL ONE (11:35)
[2017-02-01] MEDS ORDERED: NURSING VERBAL MED ORDER ONE (11:35)
--- NOTE | 2017-02-01 12:47 | Progress Note ---
Internal Med Progress Note Date of Service: Feb 01, 2017. Provider Documentation: SUBJECTIVE: Seen and examined at bedside. Had an episode of vomiting this morning. Denies any chest pain, SOB,palpitations, dizziness, abdominal pain, diarrhea. Offers no other complaints. OBJECTIVE: Vital Signs-as noted below Physical Exam: General Appearance:+ Obese, no apparent distress Head: normocephalic, Atraumatic Eyes: normal inspection, EOMI, PERRL Neck: supple, Trachea midline Respiratory/Chest: Normal breath sounds, CTA Cardiovascular: S1, S2, No murmur Abdomen/GI:Soft, Non tender, + protuberant, Bowel sounds present Extremities/Musculoskelatal:normal inspection, Trace edema Neurologic/Psych:AAOX3, grossly no focal neurological deficits Skin: normal color, warm Lab data as noted below. ASSESSMENT & PLAN: Patient is a 61 yr female who presents with chest pain and shortness of breath Chest Pain: Received Nitro paste given in ER with resolution of chest pain Negative cardiac enzymes ECHO:LV wall motion is normal Continue ASA, Statin Appreciate Cardiology input Will hold diuretics for now Plan for stress test as outpatient Chronic diastolic heart failure: Patient had recently been adjusted on her diuretics Hold lasix for now continue Aldactone Discontinue Zaroxolyn Nausea and Vomiting: Check KUB Zofran PRN GARRETT: Continue CPAP QHS Melanoma: Planned for Mohs surgery in next couple of weeks as outpatient. 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 * Ejection Fraction = 65-70%. * The left ventricular wall motion is normal. * Grade I diastolic dysfunction, (abnormal relaxation pattern). * No significant valvular pathology. Vital Signs: Date Time Temp Pulse Resp B/P (MAP) Pulse Ox O2 Delivery O2 Flow Rate FiO2 02/01/17 12:45 Room Air 02/01/17 11:21 36.6 82 16 94/57 (69) 93 103/66 (78) 02/01/17 08:49 Room Air 02/01/17 07:23 36.7 77 17 106/69 (81) 96 02/01/17 04:24 36.7 78 20 111/68 (82) 94 Room Air 02/01/17 04:10 Room Air 02/01/17 00:05 36.7 90 20 105/67 94 Room Air 01/31/17 23:12 88 18 112/63 94 01/31/17 22:10 86 20 128/73 01/31/17 21:22 94 Room Air 01/31/17 21:22 94 Room Air 01/31/17 21:13 83 01/31/17 21:06 36.9 84 22 138/71 94 Room Air 01/31/17 21:00 94 Room Air Lab Results: Results Past 24 Hours Test 01/31/17 21:13 02/01/17 00:53 02/01/17 02:38 02/01/17 04:22 Range/Units White Blood Count 7.79 8.02 4.8-10.8 K/uL Red Blood Count 5.71 5.57 4.2-5.4 M/uL Hemoglobin 17.1 16.1 12.0-16.0 g/dL Hematocrit 50.0 48.3 37-47 % Mean Corpuscular Volume 87.6 86.7 80-100 fL Mean Corpuscular Hemoglobin 29.9 28.9 25-34 pg Mean Corpuscular Hemoglobin Concent 34.2 33.3 32-36 g/dl Platelet Count 164 168 130-400 K/uL Mean Platelet Volume 11.5 10.6 7.4-10.4 fL Neutrophils (%) (Auto) 53.6 % Lymphocytes (%) (Auto) 28.4 % Monocytes (%) (Auto) 16.4 % Eosinophils (%) (Auto) 1.2 % Basophils (%) (Auto) 0.3 % Neutrophils # (Auto) 4.18 1.4-6.5 K/uL Lymphocytes # (Auto) 2.21 1.2-3.4 K/uL Monocytes # (Auto) 1.28 0.11-0.59 K/uL Eosinophils # (Auto) 0.09 0-0.5 K/uL Basophils # (Auto) 0.02 0-0.2 K/uL RDW Standard Deviation 44.8 44.3 36.4-46.3 fL RDW Coefficient of Variation 14.1 14.0 11.5-14.5 % Immature Granulocyte % (Auto) 0.1 % Immature Granulocyte # (Auto) 0.01 0.00-0.02 K/uL Prothrombin Time 12.0 9.0-12.0 SECONDS Prothromb Time International Ratio 1.1 0.9-1.1 Sodium Level 137 138 136-145 mmol/L Potassium Level 3.7 3.9 3.5-5.1 mmol/L Chloride Level 96 95 98-107 mmol/L Carbon Dioxide Level 31 34 21-32 mmol/L Anion Gap 10.0 9.0 3-11 mmol/L Blood Urea Nitrogen 19 20 7-18 mg/dl Creatinine 1.10 0.97 0.60-1.20 mg/dl Est Creatinine Clear Calc Drug Dose 71.7 80.0 ml/min Estimated GFR () 62.8 73.1 Estimated GFR (Non- 54.1 63.0 BUN/Creatinine Ratio 16.8 20.8 10-20 Random Glucose 228 197 70-99 mg/dl Calcium Level 10.1 9.8 8.5-10.1 mg/dl Total Bilirubin 0.9 0.2-1 mg/dl Direct Bilirubin 0-0.2 mg/dl Aspartate Amino Transf (AST/SGOT) 58 15-37 U/L Alanine Aminotransferase (ALT/SGPT) 48 12-78 U/L Alkaline Phosphatase 95 45-117 U/L Total Creatine Kinase 387 424 26-192 U/L Creatine Kinase MB 3.9 3.0 0.5-3.6 ng/ml Creatine Kinase MB Ratio 1.0 0.7 0-3.0 Troponin I < 0.015 < 0.015 0-0.045 ng/ml Pro-B-Type Natriuretic Peptide 23 0-900 pg/ml Total Protein 8.9 6.4-8.2 gm/dl Albumin 3.6 3.4-5.0 gm/dl Lipase 171 73-393 U/L Chemistry Specimen Hemolysis Bedside Glucose 212 183 70-90 mg/dl Magnesium Level 1.9 1.8-2.4 mg/dl Triglycerides Level 105 0-150 mg/dl Cholesterol Level 165 0-200 mg/dl HDL Cholesterol 61 mg/dl LDL Cholesterol, Calculated 83 mg/dl VLDL Cholesterol, Calculated 21 mg/dl Cholesterol/HDL Ratio 2.7 Test 02/01/17 07:28 02/01/17 09:37 02/01/17 11:35 Range/Units Bedside Glucose 193 273 70-90 mg/dl Total Creatine Kinase 628 26-192 U/L Creatine Kinase MB 2.4 0.5-3.6 ng/ml Creatine Kinase MB Ratio 0.4 0-3.0 Troponin I < 0.015 0-0.045 ng/ml
--- NOTE | 2017-02-01 13:20 | Cardiology Consultation ---
Cardiology Consultation Requesting Physician: Dr. Romain Chase Attending Station Jailer: Dr. Matias Aguero History of Present Illness Patient is a 61 year old female seen for consultation regarding chest discomfort. Patient follows with cardiology clinic for chronic diastolic right- sided heart failure, pickwickian syndrome, as well as history of cirrhosis. She was recently evaluated by Dr. Perez last week and was found to be markedly volume overloaded. Lasix was increased to 80 mg daily in addition to her daily Aldactone of 100 mg. Metolazone 2.5 mg daily prior to Lasix was added. Diuretic dose had been reduced approximately 2 months prior to her recent office visit. Patient took the metolazone for the past 4 days. She reports significant and massive diuresis. Her weight is down nearly 20 pounds since her office visit 3 days ago. Reports lower and upper extremity cramping. There is no edema present on exam. She presented to the ER due to an episode of chest discomfort which occurred while folding laundry. She had been standing for a prolonged period when she developed a substernal chest ache followed by diaphoresis, lightheadedness than a feeling of "heart pounding". Reports associated lightheadedness without syncope. She then sat down and drank a glass of water. Symptoms resolved spontaneously. She came to the emergency department for further evaluation. Cardiac enzymes are negative. ECG demonstrates no ischemic changes. A 2-D transthoracic echo has been performed demonstrate hyperdynamic left ventricular systolic function with normal wall motion. Currently feels fatigued with mild cramping of her bilateral calfs. Otherwise offers no complaints. Past Medical/Surgical History Problem List: Medical Problems: (1) Depression (2) DM2 (diabetes mellitus, type 2) (3) Emphysema of lung (4) ROME (generalized anxiety disorder) (5) Gastroparesis (6) GERD (gastroesophageal reflux disease) (7) History of left heart catheterization (LHC) (8) History of skin cancer (9) HLD (hyperlipidemia) (10) HTN (hypertension) (11) Hx MRSA infection (12) IBS (irritable bowel syndrome) (13) Influenza A (14) Kidney stone (15) GARRETT on CPAP (16) Pneumonia (17) Shortness of breath (18) SIRS (systemic inflammatory response syndrome) Surgical Problems: (1) H/O esophagogastroduodenoscopy (2) History of appendectomy (3) History of cholecystectomy (4) S/P appendectomy (5) S/P cholecystectomy (6) S/P VA-BSO Family History Diabetes mellitus Gallbladder disease Heart disease Hypertension Kidney disease Kidney stones Social History Smoking Status: Never Smoker Smokeless Tobacco Use: No Alcohol Use: none Drug Use: none Marital Status: Housing Status: lives with significant other Occupation: unemployed Review Of Systems General: The patient denies weight change, night sweats, fever, chills. Head: The patient denies headache and prior head trauma. Cardiovascular: The patient denies chest pain or chest discomfort, dyspnea on exertion, palpitations, PND, orthopnea, edema, spontaneous shortness of breath, syncope and near syncope. Pulmonary: The patient denies cough, wheeze, pleurisy, hemoptysis, sputum, and excessive snoring. Gastrointestinal: The patient denies nausea, vomiting, diarrhea, constipation, bloating, hematemesis, hematochezia, and abdominal pain. Skin: The patient denies diaphoresis and rash. Musculoskeletal: The patient denies joint pain, joint swelling, myalgia, back pain, neck pain and prior injuries. Neurological: The patient denies prior stroke and seizures Allergies Coded Allergies: Ciprofloxacin (Verified Allergy, Unknown, MOUTH BLISTERS, HIVES, 07/20/16) Morphine (Verified Allergy, Unknown, HIVES, "DEATHLY ILL", THROWS UP, ) Oxycodone (Verified Allergy, Unknown, HIVES, VOMITING, 07/20/16) Penicillin V (Verified Allergy, Unknown, HIVES, 07/20/16) Medications Reported Home Medications Medications Dose Route/Sig Max Daily Dose Days Date Category Dose Instructions Carafate (Sucralfate) 1 Gm Tab 1 Tab PO AC 30 02/01/17 Reported Zoloft (Sertraline HCl) 100 Mg Tab 100 Mg PO DAILY 02/01/17 Reported Lasix (Furosemide) 80 Mg Tab 80 Mg PO DAILY 01/31/17 Reported Ditropan (Oxybutynin Chloride) 5 Mg Tab 1 Tab PO TID PRN 01/31/17 Reported Zaroxolyn (Metolazone) 2.5 Mg Tab 2.5 Mg PO 2-3 TIMES WEEK 01/31/17 Reported TAKE THIS MEDICATION ONCE DAILY 2 TO 3 TIMES A WEEK 30 MINUTES BEFORE TAKING FUROSEMIDE Doxycycline Hyclate 100 Mg Tab 100 Mg PO BID 7 01/31/17 Reported PRESCRIBED 01/26/2017, TAKE DIRECTED UNTIL GONE Cranberry Plus Vitamin C 4200-20-3 mg-Unit (Cranberry-Vitamin C-Vitamin E) 1 Cap Cap 1 Cap PO BID 01/31/17 Reported Lorazepam 0.5 Mg Tab 0.5-1 Mg PO TID PRN 01/31/17 Reported Jardiance (Empagliflozin) 10 Mg Tab 10 Mg PO DAILY 01/31/17 Reported Rosuvastatin Calcium 40 Mg Tab 40 Mg PO HS 01/31/17 Reported Proair Respiclick (Albuterol Sulfate) 108 Mcg/Act Aer 2 Puffs INH Q4H PRN 01/31/17 Reported Fluticasone Propionate 120 Sprays/6000 Mcg Inha 2 Sprays SONALI HS PRN 01/31/17 Reported Phenazopyridine HCl 200 Mg Tab 200 Mg PO PC PRN 01/31/17 Reported TAKE THIS MEDICATION 3 TIMES DAILY AFTER MEALS IF NEEDED FOR PAIN WITH URINATION Amitriptyline HCl 25 Mg Tab 25 Mg PO HS 01/31/17 Reported Montelukast Sodium (Montelukast Sod) 10 Mg Tab 10 Mg PO HS 01/31/17 Reported Spironolactone 100 Mg Tab 100 Mg PO BID 01/31/17 Reported Humulin R U-500 Kwikpen (Insulin Regular (Human)) 500 Unit/Ml Deepti 160 Units SC QAM 01/31/17 Reported ADMINISTER THIS MEDICATION 30 MINUTES BEFORE BREAKFAST Lisinopril 2.5 Mg Tab 2.5 Mg PO QAM 01/31/17 Reported Nitrostat (Nitroglycerin) 0.4 Mg Tab 0.4 Mg UT UD PRN 07/15/16 Reported Prilosec (Omeprazole) 20 Mg Cap 20 Mg PO DAILY 12/15/15 Reported TAKE THIS MEDICATION ONCE DAILY ONE HOUR BEFORE FIRST MEAL OF THE DAY Humulin R U-500 (Concentr (Insulin Regular (Human)) 500 Unit/Ml Inj 110 Units SC HS 12/15/15 Reported Miralax (Polyethylene Glycol 3350) 1 Pow Pow 17 Gm PO DAILY PRN 09/07/15 Reported Aspirin Ec (Aspirin) 81 Mg Tab 81 Mg PO QAM 09/07/15 Reported Ultram (Tramadol HCl) 50 Mg Tab 100 Mg PO Q6H PRN 09/07/15 Reported Multivitamin (Multivitamins) Tab 1 Tab PO QAM 12/14/09 Reported Physical Exam Vital Signs (Last 8hrs): Last 8 Hrs Date Time Temp Pulse Resp B/P (MAP) Pulse Ox O2 Delivery O2 Flow Rate FiO2 02/01/17 12:45 Room Air 02/01/17 11:21 36.6 82 16 94/57 (69) 93 103/66 (78) 02/01/17 08:49 Room Air 02/01/17 07:23 36.7 77 17 106/69 (81) 96 General Appearance: Alert and Oriented x3. NAD. Morbid obesity. Head: Normocephalic Atraumatic. Eyes: PERRLA, EOMI, conjunctiva and sclera clear Neck: Supple. No carotid bruits noted. No JVD. No HJD. Respiratory: Breath sounds clear to auscultation bilaterally. No w/r/r. Cardiovascular: Reg rate and rhythm. S1 and S2 noted. No murmurs, rubs, gallops. PMI non displace. Abdomen: Normal bowel sounds, soft nontender. no abdominal bruits. Extremities: No edema, no clubbing or cyanosis. distal pulses 2/4 bilaterally. Neuro: No focal deficits. Psychiatric: Normal affect. Data Last 24 Hours Test 01/31/17 21:13 02/01/17 00:53 02/01/17 02:38 02/01/17 04:22 White Blood Count 7.79 K/uL 8.02 K/uL Red Blood Count 5.71 M/uL 5.57 M/uL Hemoglobin 17.1 g/dL 16.1 g/dL Hematocrit 50.0 % 48.3 % Mean Corpuscular Volume 87.6 fL 86.7 fL Mean Corpuscular Hemoglobin 29.9 pg 28.9 pg Mean Corpuscular Hemoglobin Concent 34.2 g/dl 33.3 g/dl Platelet Count 164 K/uL 168 K/uL Mean Platelet Volume 11.5 fL 10.6 fL Neutrophils (%) (Auto) 53.6 % Lymphocytes (%) (Auto) 28.4 % Monocytes (%) (Auto) 16.4 % Eosinophils (%) (Auto) 1.2 % Basophils (%) (Auto) 0.3 % Neutrophils # (Auto) 4.18 K/uL Lymphocytes # (Auto) 2.21 K/uL Monocytes # (Auto) 1.28 K/uL Eosinophils # (Auto) 0.09 K/uL Basophils # (Auto) 0.02 K/uL RDW Standard Deviation 44.8 fL 44.3 fL RDW Coefficient of Variation 14.1 % 14.0 % Immature Granulocyte % (Auto) 0.1 % Immature Granulocyte # (Auto) 0.01 K/uL Prothrombin Time 12.0 SECONDS Prothromb Time International Ratio 1.1 Sodium Level 137 mmol/L 138 mmol/L Potassium Level 3.7 mmol/L 3.9 mmol/L Chloride Level 96 mmol/L 95 mmol/L Carbon Dioxide Level 31 mmol/L 34 mmol/L Anion Gap 10.0 mmol/L 9.0 mmol/L Blood Urea Nitrogen 19 mg/dl 20 mg/dl Creatinine 1.10 mg/dl 0.97 mg/dl Est Creatinine Clear Calc Drug Dose 71.7 ml/min 80.0 ml/min Estimated GFR () 62.8 73.1 Estimated GFR (Non- 54.1 63.0 BUN/Creatinine Ratio 16.8 20.8 Random Glucose 228 mg/dl 197 mg/dl Calcium Level 10.1 mg/dl 9.8 mg/dl Total Bilirubin 0.9 mg/dl Direct Bilirubin mg/dl Aspartate Amino Transf (AST/SGOT) 58 U/L Alanine Aminotransferase (ALT/SGPT) 48 U/L Alkaline Phosphatase 95 U/L Total Creatine Kinase 387 U/L 424 U/L Creatine Kinase MB 3.9 ng/ml 3.0 ng/ml Creatine Kinase MB Ratio 1.0 0.7 Troponin I < 0.015 ng/ml < 0.015 ng/ml Pro-B-Type Natriuretic Peptide 23 pg/ml Total Protein 8.9 gm/dl Albumin 3.6 gm/dl Lipase 171 U/L Chemistry Specimen Hemolysis Bedside Glucose 212 mg/dl 183 mg/dl Magnesium Level 1.9 mg/dl Triglycerides Level 105 mg/dl Cholesterol Level 165 mg/dl HDL Cholesterol 61 mg/dl LDL Cholesterol, Calculated 83 mg/dl VLDL Cholesterol, Calculated 21 mg/dl Cholesterol/HDL Ratio 2.7 Test 02/01/17 07:28 02/01/17 09:37 02/01/17 11:35 Bedside Glucose 193 mg/dl 273 mg/dl Total Creatine Kinase 628 U/L Creatine Kinase MB 2.4 ng/ml Creatine Kinase MB Ratio 0.4 Troponin I < 0.015 ng/ml Imaging: Mild stable cardiomegaly EKG: Sinus rhythm, no ischemic ST changes Telemetry reviewed: Sinus rhythm, no sustained dysrhythmias Assessment & Plan Final impression: 1. 61-year-old female admitted with chest discomfort. Symptoms do not represent acute coronary syndrome. Initial cardiac evaluation negative. I suspect her presentation was vasovagal origin due to rapid diuresis in the setting of recent addition of metolazone. 2. Chronic diastolic and right sided heart failure with recent titration of diuretic therapy due to anasarca. -Patient appears compensated and mildly volume depleted 3. Morbid obesity 4. Obstructive sleep apnea/pickwickian syndrome 5. 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 Discontinue Zaroxolyn. Continue Aldactone as previously ordered I would not add intravenous hydration at this time. Her resting 2-D transthoracic echo demonstrates hyperdynamic LV function without regional wall motion abnormality. No further cardiac testing as an inpatient at this time. Consider dobutamine stress echocardiography as an outpatient. I will continue to follow patient during hospitalization. Thank you for allow me to take part in the care of your patient.
--- NOTE | 2017-02-01 13:37 | DIAGNOSTIC IMAGING REPORT ---
KUB CLINICAL HISTORY: nausea, vomiting nephrocalcinosis COMPARISON STUDY: 10/22/2012 FINDINGS: Moderate increase in fecal load throughout the colon. No evidence for fecal impaction. Pelvic vascular calcification the right. Surgical clips the right upper quadrant possibly from a prior cholecystectomy. IMPRESSION: 1. Nonobstructive bowel pattern. 2. Increased fecal load within the colon consistent with a component of fecal stasis. 3. No evidence for fecal impaction The above report was generated using voice recognition software. It may contain grammatical, syntax or spelling errors. Electronically signed by: Aneesh Rodriguez M.D. 02/01/2017 1:35 PM Dictated Date/Time: 02/01/2017 1:34 PM
[2017-02-01] MEDS ORDERED: HUMULIN R U SC SCH (17:00)
[2017-02-01 17:08] LABS: URINE APPEARANCE CLEAR (CLEAR); URINE BILIRUBIN NEG (NEG); URINE COLOR YELLOW; URINE NITRITE NEG (NEG); URINE PH 5.5 (4.5-7.5); URINE SPECIFIC GRAVITY 1.025 (1.000-1.030); UROBILINOGEN NEG (NEG)
[2017-02-01 17:11] LABS: MANUAL MICROSCOPIC REQUIRED? NO; REVIEW REQ? NO
[2017-02-01] MEDS ORDERED: MONTELUKAST SOD 10 MG TAB PO SCH (21:00)
[2017-02-01] MEDS ORDERED: AMITRIPTYLINE HCL 25 MG TAB PO SCH (21:00)
[2017-02-02] MEDS ORDERED: INSULIN ASPART 100 UNITS/ML 3 ML PEN SC ONE (02:00)
[2017-02-02 04:25] VITALS: BP 111/61; PULSE 83; TEMP 36.7; O2SAT 90
[2017-02-02 05:42] LABS: BASO % 0.3 %; BASO ABS # 0.03 K/uL (0-0.2); COMPLETE YES; EOS % 2.1 %; HEMATOCRIT 46.6 % (37-47); IG% 0.1 %; LYMPH % 36.4 %; MEAN CELL VOLUME 88.6 fL (80-100); MEAN CORPUSCULAR HEMOGLOBIN 29.7 pg (25-34); MEAN CORPUSCULAR HGB CONC 33.5 g/dl (32-36); MEAN PLATELET VOLUME 11.2 fL (7.4-10.4); MONO % 13.8 %; NEUT % 47.3 %; PLATELET COUNT 158 K/uL (130-400); RED BLOOD COUNT 5.26 M/uL (4.2-5.4); WHITE BLOOD COUNT 9.07 K/uL (4.8-10.8)
[2017-02-02 06:09] LABS: BUN/CREATININE RATIO 32.6 (10-20); CALCIUM 9.3 mg/dl (8.5-10.1); CREATININE 0.95 mg/dl (0.60-1.20); POTASSIUM 3.9 mmol/L (3.5-5.1)
[2017-02-02] MEDS: SUCRALFATE 1 GM TAB PO SCH ×2 (06:09→11:43)
[2017-02-02 06:55] LABS: ESTIMATED AVERAGE GLUCOSE 163 mg/dl; HA1C FLAG Normal (Normal)
[2017-02-02 07:38] VITALS: BP 144/73; PULSE 80; TEMP 36.5; O2SAT 91
[2017-02-02] MEDS: SPIRONOLACTONE 100 MG TAB PO SCH (08:16)
[2017-02-02] MEDS: ASPIRIN 81 MG ECTAB PO SCH (08:16)
[2017-02-02] MEDS: DOXYCYCLINE HYCLATE 100 MG CAP PO SCH (08:16)
[2017-02-02] MEDS: MULTIVITAMIN TAB PO SCH (08:16)
[2017-02-02] MEDS: LISINOPRIL 2.5 MG TAB PO SCH (08:16)
[2017-02-02] MEDS: SERTRALINE HCL 100 MG TAB PO SCH (08:16)
[2017-02-02] MEDS: ENOXAPARIN 40 MG/0.4 ML SYR SC SCH (08:17)
[2017-02-02] MEDS: PANTOprazole SOD 40 MG TAB PO SCH (08:17)
[2017-02-02] MEDS: HUMULIN-R U-500 80 UNITS in SYRINGE 0 ML SC SCH (08:19)
[2017-02-02] MEDS: INSULIN ASPART 100 UNITS/ML 3 ML PEN SC SCH ×2 (08:20→11:45)
--- NOTE | 2017-02-02 11:20 | Progress Note ---
Internal Med Progress Note Date of Service: Feb 02, 2017. Provider Documentation: SUBJECTIVE: Seen and examined at bedside. Nausea, vomiting resolved. Denies any chest pain, SOB,palpitations, dizziness, abdominal pain, diarrhea. OBJECTIVE: Vital Signs-as noted below Physical Exam: General Appearance:+ Obese, no apparent distress Head: normocephalic, Atraumatic Eyes: normal inspection, EOMI, PERRL Neck: supple, Trachea midline Respiratory/Chest: Normal breath sounds, CTA Cardiovascular: S1, S2, No murmur Abdomen/GI:Soft, Non tender, + protuberant, Bowel sounds present Extremities/Musculoskelatal:normal inspection, Trace edema Neurologic/Psych:AAOX3, grossly no focal neurological deficits Skin: normal color, warm Lab data as noted below. ASSESSMENT & PLAN: Patient is a 61 yr female who presents with chest pain and shortness of breath Chest Pain: Received Nitro paste given in ER with resolution of chest pain Negative cardiac enzymes ECHO:LV wall motion is normal Continue ASA, Statin Appreciate Cardiology input Plan to resume diuretics as per cardiology recommendations Plan for dobutamine stress test as outpatient Chronic diastolic heart failure: Patient had recently been adjusted on her diuretics continue Aldactone, lasix Discontinue Zaroxolyn Nausea and Vomiting: Resolved KUB:Nonobstructive bowel pattern Zofran PRN GARRETT: Continue CPAP QHS Melanoma: Planned for Mohs surgery in next couple of weeks as outpatient. 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 Seek immediate medical attention if your symptoms reoccur or worsen PROCEDURES: ECHO; * Left ventricular systolic function is normal. * Ejection Fraction = 65-70%. * The left ventricular wall motion is normal. * Grade I diastolic dysfunction, (abnormal relaxation pattern). * No significant valvular pathology. CXR: Mild stable cardiomegaly. Otherwise negative study KUB: 1. Nonobstructive bowel pattern. 2. Increased fecal load within the colon consistent with a component of fecal stasis. 3. No evidence for fecal impaction Vital Signs: Date Time Temp Pulse Resp B/P (MAP) Pulse Ox O2 Delivery O2 Flow Rate FiO2 02/02/17 08:00 Room Air 02/02/17 07:38 36.5 80 17 144/73 (96) 91 02/02/17 04:25 36.7 83 18 111/61 (78) 90 Room Air 02/02/17 04:00 Room Air 02/02/17 00:01 Room Air 02/01/17 23:23 36.4 79 18 120/68 (85) 92 CPAP 02/01/17 20:00 Room Air 02/01/17 19:07 36.7 91 20 130/74 (92) 92 Room Air 02/01/17 16:00 Room Air 02/01/17 15:00 90 92 02/01/17 14:51 36.5 85 18 125/68 (87) 92 Room Air 02/01/17 12:45 Room Air 02/01/17 11:21 36.6 82 16 94/57 (69) 93 103/66 (78) Lab Results: Results Past 24 Hours Test 02/01/17 11:35 02/01/17 16:25 02/01/17 17:00 02/01/17 20:28 Range/Units Bedside Glucose 273 248 281 70-90 mg/dl Urine Color YELLOW Urine Appearance CLEAR CLEAR Urine pH 5.5 4.5-7.5 Urine Specific [place] 1.025 1.000-1.030 Urine Protein NEG NEG Urine Glucose (UA) 3+ NEG Urine Ketones NEG NEG Urine Occult Blood NEG NEG Urine Nitrite NEG NEG Urine Bilirubin NEG NEG Urine Urobilinogen NEG NEG Urine Leukocyte Esterase NEG NEG Test 02/02/17 01:58 02/02/17 05:07 02/02/17 07:16 Range/Units Bedside Glucose 124 173 70-90 mg/dl White Blood Count 9.07 4.8-10.8 K/uL Red Blood Count 5.26 4.2-5.4 M/uL Hemoglobin 15.6 12.0-16.0 g/dL Hematocrit 46.6 37-47 % Mean Corpuscular Volume 88.6 80-100 fL Mean Corpuscular Hemoglobin 29.7 25-34 pg Mean Corpuscular Hemoglobin Concent 33.5 32-36 g/dl Platelet Count 158 130-400 K/uL Mean Platelet Volume 11.2 7.4-10.4 fL Neutrophils (%) (Auto) 47.3 % Lymphocytes (%) (Auto) 36.4 % Monocytes (%) (Auto) 13.8 % Eosinophils (%) (Auto) 2.1 % Basophils (%) (Auto) 0.3 % Neutrophils # (Auto) 4.29 1.4-6.5 K/uL Lymphocytes # (Auto) 3.30 1.2-3.4 K/uL Monocytes # (Auto) 1.25 0.11-0.59 K/uL Eosinophils # (Auto) 0.19 0-0.5 K/uL Basophils # (Auto) 0.03 0-0.2 K/uL RDW Standard Deviation 46.3 36.4-46.3 fL RDW Coefficient of Variation 14.3 11.5-14.5 % Immature Granulocyte % (Auto) 0.1 % Immature Granulocyte # (Auto) 0.01 0.00-0.02 K/uL Sodium Level 135 136-145 mmol/L Potassium Level 3.9 3.5-5.1 mmol/L Chloride Level 97 98-107 mmol/L Carbon Dioxide Level 33 21-32 mmol/L Anion Gap 5.0 3-11 mmol/L Blood Urea Nitrogen 31 7-18 mg/dl Creatinine 0.95 0.60-1.20 mg/dl Est Creatinine Clear Calc Drug Dose 81.6 ml/min Estimated GFR () 74.9 Estimated GFR (Non- 64.6 BUN/Creatinine Ratio 32.6 10-20 Random Glucose 155 70-99 mg/dl Calcium Level 9.3 8.5-10.1 mg/dl Microbiology Results 02/01/17 Urine Culture, Received Pending
[2017-02-02 11:31] VITALS: BP 103/60; PULSE 71; TEMP 36.7; O2SAT 94
--- NOTE | 2017-02-02 12:48 | Cardiology Follow-Up ---
Subjective General Date of Service: Feb 02, 2017. Pt evaluation today including: conversation w/ patient, physical exam, chart review, lab review, review of studies, conversation w/ otm consultant, review of inpatient medication list History of Present Illness The patient is a 61 year old female seen in follow-up. Denies recurrent lightheadedness or chest discomfort. Feeling weak and fatigued today. No dysrhythmias on telemetry. Mildly elevated BUNs noted on lab testing. Renal function otherwise stable. Allergies Coded Allergies: Ciprofloxacin (Verified Allergy, Unknown, MOUTH BLISTERS, HIVES, 07/20/16) Morphine (Verified Allergy, Unknown, HIVES, "DEATHLY ILL", THROWS UP, ) Oxycodone (Verified Allergy, Unknown, HIVES, VOMITING, 07/20/16) Penicillin V (Verified Allergy, Unknown, HIVES, 07/20/16) Social History Smoking Status: Never Smoker Hx Tobacco Use In Past Year?: No Hx Alcohol Use - Type And Amou: No Hx Substance Use - Type And Am: No Problem List Medical Problems: (1) Abdominal pain Status: Acute (2) Chest pain Status: Acute (3) Influenza Status: Acute (4) Pain of right clavicle Status: Acute (5) Pleural effusion on right Status: Acute (6) Right flank pain Status: Acute (7) UTI (urinary tract infection) Status: Acute Review of Systems Respiratory: + dyspnea on exertion, No cough, No wheezing, No shortness of breath, No dyspnea at rest Cardiac: + edema, No chest pain, No orthopnea, No PND, No claudication, No palpitations Physical Exam Vital Signs Last Vital Signs Documentation Date Time Temp Pulse Resp B/P (MAP) Pulse Ox O2 Delivery O2 Flow Rate FiO2 02/02/17 12:00 Room Air 02/02/17 11:31 36.7 71 16 103/60 (85) 94 Physical Exam Constitutional: General Apperance: obese Level of Distress: chronically ill Head: normocephalic, atraumatic Neck: supple, trachea midline Lungs: Auscultation: breath sounds normal, no wheezing, no rales/crackles, no rhonchi Cardiovascular: Heart Auscultation: RRR, normal S1, normal S2, II/ ANNETTE Abdomen: Bowel Sounds: normal Inspection & Palpation: soft, non-distended, no tenderness, guarding & rebound Extremities: no cyanosis, no clubbing, no ulcers, edema (trace B/L pedal edema) Neurologic: Gait & Station: pertinent finding (no focal motor deficit.) Cranial Nerves: grossly intact Assessment and Plan Assessment and Plan Final impression: 1. 61-year-old female admitted with atypical chest discomfort and transient lightheadedness with palpitations associated with aggressive diuresis. - CE negative - normal wall motion on echo - no dysrhythmias on telemetry 2. Chronic diastolic and right sided heart failure with recent titration of diuretic therapy due to anasarca. -Patient appears compensated and mildly volume depleted 3. Morbid obesity 4. Obstructive sleep apnea/pickwickian syndrome 5. 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 Hold Lasix today and tomorrow. Restart Lasix on Thursday. Continue other cardiovascular medications as previously ordered. Close follow-up in 1 week with PCP or cardiology. Laboratory Results Last 24 Hours Test 02/01/17 16:25 02/01/17 17:00 02/01/17 20:28 02/02/17 01:58 Bedside Glucose 248 mg/dl 281 mg/dl 124 mg/dl Urine Color YELLOW Urine Appearance CLEAR Urine pH 5.5 Urine Specific [place] 1.025 Urine Protein NEG Urine Glucose (UA) 3+ Urine Ketones NEG Urine Occult Blood NEG Urine Nitrite NEG Urine Bilirubin NEG Urine Urobilinogen NEG Urine Leukocyte Esterase NEG Test 02/02/17 05:07 02/02/17 07:16 02/02/17 11:19 White Blood Count 9.07 K/uL Red Blood Count 5.26 M/uL Hemoglobin 15.6 g/dL Hematocrit 46.6 % Mean Corpuscular Volume 88.6 fL Mean Corpuscular Hemoglobin 29.7 pg Mean Corpuscular Hemoglobin Concent 33.5 g/dl Platelet Count 158 K/uL Mean Platelet Volume 11.2 fL Neutrophils (%) (Auto) 47.3 % Lymphocytes (%) (Auto) 36.4 % Monocytes (%) (Auto) 13.8 % Eosinophils (%) (Auto) 2.1 % Basophils (%) (Auto) 0.3 % Neutrophils # (Auto) 4.29 K/uL Lymphocytes # (Auto) 3.30 K/uL Monocytes # (Auto) 1.25 K/uL Eosinophils # (Auto) 0.19 K/uL Basophils # (Auto) 0.03 K/uL RDW Standard Deviation 46.3 fL RDW Coefficient of Variation 14.3 % Immature Granulocyte % (Auto) 0.1 % Immature Granulocyte # (Auto) 0.01 K/uL Sodium Level 135 mmol/L Potassium Level 3.9 mmol/L Chloride Level 97 mmol/L Carbon Dioxide Level 33 mmol/L Anion Gap 5.0 mmol/L Blood Urea Nitrogen 31 mg/dl Creatinine 0.95 mg/dl Est Creatinine Clear Calc Drug Dose 81.6 ml/min Estimated GFR () 74.9 Estimated GFR (Non- 64.6 BUN/Creatinine Ratio 32.6 Random Glucose 155 mg/dl Calcium Level 9.3 mg/dl Bedside Glucose 173 mg/dl 172 mg/dl
[2017-02-02] MEDS ORDERED: SPRN100 PO (13:12)
--- NOTE | 2017-02-02 13:19 | Discharge Summary ---
Discharge Summary Date of Service Feb 02, 2017. Discharge Summary Admission Date: Jan 31, 2017 at 22:26 Discharge Date: Feb 02, 2017 Discharge Disposition: Home with services Principal Diagnosis: Chest Pain Procedures: CXR: Mild stable cardiomegaly. Otherwise negative study KUB: 1. Nonobstructive bowel pattern. 2. Increased fecal load within the colon consistent with a component of fecal stasis. 3. No evidence for fecal impaction Consultations: Cardiology Pending Studies/Follow-Up: Follow up with on February 05, 2017 at 10:45 AM Follow up with Cardiology Adrianna Huffman on February 03, 2017 at 10:15 AM Get stress test as outpatient as advised. Seek immediate medical attention if your symptoms reoccur or worsen Do not take lasix today and tomorrow. Start taking lasix on Thursday (02/04/17) Medication Reconciliation Changed Medications: Spironolactone (Spironolactone) 100 Mg Tab 100 MG PO DAILY for 30 Days, #30 (Changed from: BID) Continued Medications: Albuterol Sulfate (Proair Respiclick) 108 Mcg/Act Aer 2 PUFFS INH Q4H PRN for Chest Pain/Cough or SOB Amitriptyline HCl (Amitriptyline HCl) 25 Mg Tab 25 MG PO HS Aspirin (Aspirin Ec) 81 Mg Tab 81 MG PO QAM Cranberry-Vitamin C-Vitamin E (Cranberry Plus Vitamin C 4200-20-3 mg-Unit) 1 Cap Cap 1 CAP PO BID Doxycycline Hyclate (Doxycycline Hyclate) 100 Mg Tab 100 MG PO BID for 7 Days, #14 TAB PRESCRIBED 01/26/2017, TAKE DIRECTED UNTIL GONE Empagliflozin (Jardiance) 10 Mg Tab 10 MG PO DAILY Fluticasone Propionate (Fluticasone Propionate) 120 Sprays/6000 Mcg Inha 2 SPRAYS SONALI HS PRN for Allergy Symptoms Furosemide (Lasix) 80 Mg Tab 80 MG PO DAILY, TAB Insulin Regular (Human) (Humulin R U-500 (Concentr) 500 Unit/Ml Inj 110 UNITS SC HS Insulin Regular (Human) (Humulin R U-500 Kwikpen) 500 Unit/Ml Deepti 160 UNITS SC QAM ADMINISTER THIS MEDICATION 30 MINUTES BEFORE BREAKFAST Lisinopril (Lisinopril) 2.5 Mg Tab 2.5 MG PO QAM Lorazepam (Lorazepam) 0.5 Mg Tab 0.5-1 MG PO TID PRN for Anxiety Montelukast Sod (Montelukast Sodium) 10 Mg Tab 10 MG PO HS Multivitamin (Multivitamin) Tab 1 TAB PO QAM Nitroglycerin (Nitrostat) 0.4 Mg Tab 0.4 MG UT UD PRN for Esophageal Spasm, BTL Omeprazole (Prilosec) 20 Mg Cap 20 MG PO DAILY, CAP TAKE THIS MEDICATION ONCE DAILY ONE HOUR BEFORE FIRST MEAL OF THE DAY Oxybutynin Chloride (Ditropan) 5 Mg Tab 1 TAB PO TID PRN for incontinence, 11 Refills Phenazopyridine HCl (Phenazopyridine HCl) 200 Mg Tab 200 MG PO PC PRN for Urination Pain TAKE THIS MEDICATION 3 TIMES DAILY AFTER MEALS IF NEEDED FOR PAIN WITH URINATION Polyethylene Glycol 3350 (Miralax) 1 Pow Pow 17 GM PO DAILY PRN for Constipation, GM Rosuvastatin Calcium (Rosuvastatin Calcium) 40 Mg Tab 40 MG PO HS Sertraline (Zoloft) 100 Mg Tab 100 MG PO DAILY, 1 Refill Sucralfate (Carafate) 1 Gm Tab 1 TAB PO AC for 30 Days, TAB 1 Refill Tramadol (Ultram) 50 Mg Tab 100 MG PO Q6H PRN for Pain, TAB Discontinued Medications: Metolazone (Zaroxolyn) 2.5 Mg Tab 2.5 MG PO 2-3 TIMES WEEK, TAB TAKE THIS MEDICATION ONCE DAILY 2 TO 3 TIMES A WEEK 30 MINUTES BEFORE TAKING FUROSEMIDE Admission Information HPI (per Admitting provider): 61 yo F with h/o RHF and diastolic dysfunction as well as cirrhosis presents to the ER for chest pain and shortness of breath while doing laundry at home. She states that she has gained 30 lbs in the last couple of weeks and her legs were very swollen. Review of outpatient records reflects a gradual weight trend up from 274 in Jul 2016 to 286 this week with a 6-8 pound weight gain in the last 3 -4 weeks. She went to see her outpatient logistics planner, Dr. Perez, who noted borderline anasarca on exam and doubled her spironolactone and lasix, adding metolazone TIW, of which she reports taking one dose since getting the medication. Although edema was noted at that time, she has no edema present today. Abdominal exam is somewhat difficult as her abdomen is obese with multiple skin folds, but there is no pitting edema present. The patient states that she developed some leg cramps and also some chest pain while doing laundry today. Her pain was described as an ache and sat in her L anterior chest with radiation into her L jaw and neck and shoulder. She reports some SOB, sweating and legs getting shaky associated with this chest pain. She also reports severe fatigue and she has been nauseated since yesterday. She denies vomiting , diarrhea, or blood in her stool. She denies palpitations. She also reports a recent L cheek bx which was complicated by infection. She was initially on Keflex and developed some whitish vaginal discharge and urinary urgency with hematuria and incomplete voiding. She denies fevers or chills recently. She denies any pelvic or flank pain and has no abdominal tenderness on exam. Her wound was found to be MRSA and her abx was switched to doxycycline 3 days ago. 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 She also will be losing her dogs when she moves, as they have to get a home without stairs and cannot take the dogs with them. Physical Exam (per Admitting): GEN: obese, in no acute distress, alert and appropriate, no conversational dyspnea HEENT: L cheek shave bx site, nondraining wound, no erythema, covered with dry gauze, PERRL, normal non-icteric sclerae, MMM, pharynx non-acute CARDIO: reg rate, S1/2 heard without m/g/r, no JVD LUNGS: CTA bilaterally, no crackles, rales or wheezes, good diaphragmatic excursion ABD: soft, obese, non-tender, non-distended, no rebound or guarding, +BS, no CVA tenderness EXTREMITY: RP and DP palpable 2+ bilat, no LE swelling or edema, extremities are warm and well-perfused NEURO: CN 2-12 grossly intact, sensation intact throughout MUSC: 5/5 strength throughout, moves all extremities equally SKIN: warm and dry and wound as above. Hospital Course Patient is a 61 yr female who presents with chest pain and shortness of breath Chest Pain: Received Nitro paste given in ER with resolution of chest pain Negative cardiac enzymes ECHO:LV wall motion is normal Continue ASA, Statin Appreciate Cardiology input Plan to resume diuretics as per cardiology recommendations Plan for dobutamine stress test as outpatient Chronic diastolic heart failure: Patient had recently been adjusted on her diuretics continue Aldactone, lasix Discontinue Zaroxolyn Nausea and Vomiting: Resolved KUB:Nonobstructive bowel pattern Zofran PRN GARRETT: Continue CPAP QHS Melanoma: Planned for Mohs surgery in next couple of weeks as outpatient. 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 Seek immediate medical attention if your symptoms reoccur or worsen PROCEDURES: ECHO; * Left ventricular systolic function is normal. * Ejection Fraction = 65-70%. * The left ventricular wall motion is normal. * Grade I diastolic dysfunction, (abnormal relaxation pattern). * No significant valvular pathology. CXR: Mild stable cardiomegaly. Otherwise negative study KUB: 1. Nonobstructive bowel pattern. 2. Increased fecal load within the colon consistent with a component of fecal stasis. 3. No evidence for fecal impaction Total time spent on discharge = 33 minutes This includes examination of the patient, discharge planning, medication reconciliation, and communication with other providers. Discharge Instructions Discharge Instructions Date of Service Feb 02, 2017. Admission Reason for Admission: Shortness Of Breath Discharge Discharge Diagnosis / Problem: Chest Pain Discharge Goals Goal(s): Decrease discomfort, Improve function Activity Recommendations Activity Limitations: resume your previous activity Exercise/Sports Limitations: as tolerated . Instructions / Follow-Up Instructions / Follow-Up Follow up with on February 05, 2017 at 10:45 AM Follow up with Cardiology Adrianna Huffman on February 03, 2017 at 10:15 AM Get stress test as outpatient as advised. Seek immediate medical attention if your symptoms reoccur or worsen Do not take lasix today and tomorrow. Start taking lasix on Thursday (02/04/17) Current Hospital Diet Patient's current hospital diet: Low Sodium Diet (2gm Na), Diabetes Type 2 Diet Discharge Diet Recommended Diet: Low Sodium Diet (2gm Na), Diabetes Type 2 Diet Pending Studies Studies pending at discharge: no Laboratory Results Hemoglobin A1c Test 02/01/17 02:38 Range/Units Estimated Average Glucose 163 mg/dl Hemoglobin A1c 7.3 H 4.5-5.6 % Lipid Panel Test 02/01/17 02:38 Range/Units Triglycerides Level 105 0-150 mg/dl Cholesterol Level 165 0-200 mg/dl HDL Cholesterol 61 mg/dl Cholesterol/HDL Ratio 2.7 LDL Cholesterol, Calculated 83 mg/dl Medical Emergencies . Who to Call and When: Medical Emergencies: If at any time you feel your situation is an emergency, please call 911 immediately. . Non-Emergent Contact Non-Emergency issues call your: Primary Care Provider, Brick Maker Call Non-Emergent contact if: you have a fever, your pain is not controlled, your pain is worsening, your pain is unusual for you, you have any medication questions If your symptoms reoccur or worsen. . "Provider Documentation" section prepared by Romain Chase. . VTE Core Measure Inpt VTE Proph given/why not?: Enoxaparin (Lovenox)SQ
[2017-02-02 13:33] VITALS: BP 103/60; PULSE 71; TEMP 36.7; O2SAT 94
[2017-02-03] MEDS ORDERED: SPIRONOLACTONE 100 MG TAB PO SCH (09:00)
== END 2017-02-02 15:07 | disposition home health service (06) | DRG 204 ==
LOC: EDBD 20:34 → C.EDA 20:36 → C.MED 22:26 → ENRESERV 22:54 → EDBEDREQ 22:55
PROVIDERS: ADMIT Hospitalist; ATTEND Internal Medicine
DX: R06.02 Shortness of breath (principal); T50.2X5A Adverse effect of carbonic-anhydrase inhibitors, benzothiadiazides and other diuretics, initial encounter; I50.32 Chronic diastolic (congestive) heart failure; Z68.41 Body mass index [BMI] 40.0-44.9, adult; E66.2 Morbid (severe) obesity with alveolar hypoventilation; R07.9 Chest pain, unspecified; R11.2 Nausea with vomiting, unspecified; I11.0 Hypertensive heart disease with heart failure; E11.9 Type 2 diabetes mellitus without complications; F32.9 Major depressive disorder, single episode, unspecified; G47.33 Obstructive sleep apnea (adult) (pediatric); C43.9 Malignant melanoma of skin, unspecified; K21.9 Gastro-esophageal reflux disease without esophagitis; K74.60 Unspecified cirrhosis of liver; K75.81 Nonalcoholic steatohepatitis (NASH); E78.5 Hyperlipidemia, unspecified; Z51.81 Encounter for therapeutic drug level monitoring; Z79.899 Other long term (current) drug therapy; Z79.82 Long term (current) use of aspirin; Z79.4 Long term (current) use of insulin; Z86.14 Personal history of Methicillin resistant Staphylococcus aureus infection; Z83.3 Family history of diabetes mellitus; Z82.49 Family history of ischemic heart disease and other diseases of the circulatory system; Z84.1 Family history of disorders of kidney and ureter

== ENCOUNTER 2017-07-23 09:52 | Inpatient (IN) | payer OTHER ==
[~2017-07-23] VITALS: Ht 165.1 cm; Wt 124.6 kg
[~2017-07-23 09:52] MED LIST changes: +ALBU18002 INH; -AMIT25TA9 PO; +AMT25 PO; +ATV5X PO; +CRANCAP4 PO; +DOXY1TAB6 PO; +DTR/5 PO; +EMPA1TAB PO; +FLNIN/ NAE; +FRS/80 PO; +INSU1SOL SC; +INSUINJ2 SC; -LISI2.5T5 PO; +LSN25 PO; -METO1TAB55 PO; -NYST80OI TOP; +OMEP20CA9 PO; +PHEN-1043 PO; -ROSU40TA PO; +ROSU40TA28 PO; -SALI1SPR3 INTNAS; +SNG10 PO; -SOLI10TA2 PO; +SPRN100 PO
--- NOTE | 2017-07-23 11:10 | EMERGENCY ROOM VISIT NOTE ---
History First contact with patient: 10:33 Chief Complaint: REFERRED BY DOCTOR Stated Complaint: 25 LBS OF FLUID,DOC REFERRED,KIDNEY RUPTURE PER CT History of Present Illness The patient is a 62 year old female who was referred to the emergency department by Dr. Perez for acute on chronic decompensated diastolic heart failure. Ms. Carbone states she has been progressively short of breath on exertion and has gained 25 pounds since late January. She reports she has a history of congestive heart failure and was initially overdiuresed with Lasix and Spironolactone, and therefore her medication has been reduced to 80mg Lasix daily and 100mg of Spironolactone daily. She reports that on the walk from the waiting room to her room in the ED, she had to stop 3-4 times to catch her breath. She also reports orthopnea, and has to sleep in a recliner with her CPAP at night, or she gets short of breath. She denies prior OR, chest pain, n/v , fever, chills, but states she feels an occasional flutter in her chest. She reports that over the past month and a half, she has also had left sided flank pain, 8/10 in severity and sharp, limiting her movements such as bending over. She states she was initially treated for a UTI, but that this did not help , and that her CT scan showed blood around her kidney. Dr. Perez's report states that her CT showed splanchnic congestion and increasing mesorenal varices. She states Dr. Perez was trying to arrange outpatient nephrology follow up. Of note, her father from a OR at age 58. Review of Systems See HPI for pertinent positives & negatives. A total of 10 systems reviewed and were otherwise negative. Past Medical/Surgical History Medical Problems: (1) Depression (2) DM2 (diabetes mellitus, type 2) (3) Emphysema of lung (4) ROME (generalized anxiety disorder) (5) Gastroparesis (6) GERD (gastroesophageal reflux disease) (7) History of left heart catheterization (LHC) (8) History of skin cancer (9) HLD (hyperlipidemia) (10) HTN (hypertension) (11) Hx MRSA infection (12) IBS (irritable bowel syndrome) (13) Influenza A (14) Kidney stone (15) GARRETT on CPAP (16) Pneumonia (17) Shortness of breath (18) SIRS (systemic inflammatory response syndrome) Surgical Problems: (1) H/O esophagogastroduodenoscopy (2) History of appendectomy (3) History of cholecystectomy (4) S/P appendectomy (5) S/P cholecystectomy (6) S/P VA-BSO Family History Diabetes mellitus Gallbladder disease Heart disease Hypertension Kidney disease Kidney stones Social History Smoking Status: Never Smoker Alcohol Use: none Drug Use: none Marital Status: Housing Status: lives with family Occupation Status: unemployed Current/Historical Medications Scheduled Amitriptyline HCl (Amitriptyline HCl), 25 MG PO HS Aspirin (Aspirin Ec), 81 MG PO QAM Benzonatate (Tessalon Perles), 100 MG PO TID Canagliflozin (Invokana), 100 MG PO DAILY Cranberry-Vitamin C-Vitamin E (Cranberry Plus Vitamin C 4200-20-3 mg-Unit), 1 CAP PO BID Fluticasone Propionate (Fluticasone Propionate), 2 SPRAYS SONALI HS Furosemide (Lasix), 40 MG PO BID Insulin Regular (Human) (Humulin R U-500 (Concentr), 100 UNITS SC DINNER Insulin Regular (Human) (Humulin R U-500 Kwikpen), 170 UNITS SC QAM Lisinopril (Lisinopril), 2.5 MG PO QAM Metoclopramide (Reglan), 10 MG PO ACHS Montelukast Sod (Montelukast Sodium), 10 MG PO HS Multivitamin (Multivitamin), 1 TAB PO QAM Omeprazole (Prilosec), 20 MG PO QAM Oxybutynin Chloride (Ditropan), 1 TAB PO TID Rosuvastatin Calcium (Rosuvastatin Calcium), 40 MG PO HS Spironolactone (Aldactone), 100 MG PO DAILY Scheduled PRN Albuterol Sulfate (Proair Respiclick), 2 PUFFS INH Q4H PRN for Chest Pain/Cough or SOB Lorazepam (Lorazepam), 0.5-1 MG PO TID PRN for Anxiety Nitroglycerin (Nitrostat), 0.4 MG UT UD PRN for Esophageal Spasm Polyethylene Glycol 3350 (Miralax), 17 GM PO DAILY PRN for Constipation Tramadol (Ultram), 100 MG PO Q6H PRN for Pain Physical Exam Vital Signs Date Time Temp Pulse Resp B/P (MAP) Pulse Ox O2 Delivery O2 Flow Rate FiO2 07/23/17 13:22 76 07/23/17 11:42 158/87 07/23/17 10:24 73 07/23/17 09:58 36.6 81 20 141/60 99 Room Air Physical Exam HEENT: Head - normocephalic and atraumatic. Mouth - moist buccal mucosa. Oropharynx is nonerythematous and there is no tonsillar exudate or edema noted. Neck: Supple; no JVD, nuchal rigidity, cervical lymphadenopathy, or auscultated bruits. Heart: Faint heart sounds, regular rate and rhythm. There is a normal S1 and S2 with no murmurs, clicks, or gallops appreciated. Lungs: Clear to auscultation bilaterally with no wheezes, rales, or rhonchi. Abdomen: Soft, completely nontender, with good bowel sounds. There are no palpable pulsatile masses or hepatosplenomegaly. There is no guarding, rigidity , or rebound noted. Extremities: No evidence of cyanosis, clubbing. There are easily palpable peripheral pulses. Bilateral pedal edema. Neuro:The patient is awake and alert, oriented to day, time, and place. Muscle strength is 5/5 in all 4 extremities. 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 There are no cerebellar signs. Medical Decision & Procedures ER Provider Diagnostic Interpretation: CHEST ONE VIEW PORTABLE CLINICAL HISTORY: progressive SOBOE w/hx of CHF dyspnea COMPARISON STUDY: 01/31/2017 FINDINGS: Moderate cardiomegaly slightly increased in the prior exam. Increased pulmonary vasculature. Diaphragms smooth. IMPRESSION: Cardiomegaly with components of congestive failure. Laboratory Results 07/23/17 11:40 Red Blood Count 4.52, Mean Corpuscular Volume 88.7, Mean Corpuscular Hemoglobin 30.3, Mean Corpuscular Hemoglobin Concent 34.2, Mean Platelet Volume 10.7, Neutrophils (%) (Auto) 42.6, Lymphocytes (%) (Auto) 42.6, Monocytes (%) (Auto) 10.6, Eosinophils (%) (Auto) 3.5, Basophils (%) (Auto) 0.7, Neutrophils # (Auto ) 1.92, Lymphocytes # (Auto) 1.92, Monocytes # (Auto) 0.48, Eosinophils # (Auto ) 0.16, Basophils # (Auto) 0.03 07/23/17 11:40 Test 07/23/17 11:10 07/23/17 11:40 Creatine Kinase MB Ratio (0-3.0) White Blood Count 4.51 K/uL (4.8-10.8) Red Blood Count 4.52 M/uL (4.2-5.4) Hemoglobin 13.7 g/dL (12.0-16.0) Hematocrit 40.1 % (37-47) Mean Corpuscular Volume 88.7 fL (80-100) Mean Corpuscular Hemoglobin 30.3 pg (25-34) Mean Corpuscular Hemoglobin Concent 34.2 g/dl (32-36) Platelet Count 125 K/uL (130-400) Mean Platelet Volume 10.7 fL (7.4-10.4) Neutrophils (%) (Auto) 42.6 % Lymphocytes (%) (Auto) 42.6 % Monocytes (%) (Auto) 10.6 % Eosinophils (%) (Auto) 3.5 % Basophils (%) (Auto) 0.7 % Neutrophils # (Auto) 1.92 K/uL (1.4-6.5) Lymphocytes # (Auto) 1.92 K/uL (1.2-3.4) Monocytes # (Auto) 0.48 K/uL (0.11-0.59) Eosinophils # (Auto) 0.16 K/uL (0-0.5) Basophils # (Auto) 0.03 K/uL (0-0.2) RDW Standard Deviation 46.5 fL (36.4-46.3) RDW Coefficient of Variation 14.3 % (11.5-14.5) Immature Granulocyte % (Auto) 0.0 % Immature Granulocyte # (Auto) 0.00 K/uL (0.00-0.02) Anion Gap 4.0 mmol/L (3-11) Est Creatinine Clear Calc Drug Dose 160.7 ml/min Estimated GFR () 120.2 Estimated GFR (Non- 103.7 BUN/Creatinine Ratio 21.8 (10-20) Calcium Level 8.6 mg/dl (8.5-10.1) Total Bilirubin 0.6 mg/dl (0.2-1) Aspartate Amino Transf (AST/SGOT) 55 U/L (15-37) Alanine Aminotransferase (ALT/SGPT) 45 U/L (12-78) Alkaline Phosphatase 76 U/L (45-117) Creatine Kinase MB 3.8 ng/ml (0.5-3.6) Troponin I < 0.015 ng/ml (0-0.045) Total Protein 7.7 gm/dl (6.4-8.2) Albumin 2.9 gm/dl (3.4-5.0) Globulin 4.8 gm/dl (2.5-4.0) Albumin/Globulin Ratio 0.6 (0.9-2) Chemistry Specimen Hemolysis Medications Administered Medications (Trade) Dose Ordered Sig/Penny Route Start Time Stop Time Status Last Admin Dose Admin Furosemide 80 mg/ Syringe 8 ml @ 4 mls/min ONE ONCE IV 07/23/17 12:45 07/23/17 12:46 DC 07/23/17 12:53 4 MLS/MIN Furosemide (Lasix Inj) 80 mg STK-MED ONCE .ROUTE 07/23/17 12:42 07/23/17 12:43 DC 07/23/17 12:45 80 MG ECG Indication: SOB/dyspnea Rate (beats per minute): 72 Rhythm: normal sinus Findings: no acute ischemic change, no ectopy Comparison ECG Date: February 02, 2017 Change: no significant change ED Course 10:33: The patient was evaluated in room A9B. A complete history and physical exam was performed. 10:50: The case was discussed with Dr. Zamorano. 12:15: Dr. Zamorano discussed the patient's case with MISAEL Adams. The patient will be evaluated for further management. 12:34: 80mg IV lasix ordered Medical Decision Etiologies such as pneumonia, COPD, reactive airway disease, CHF, cardiac ischemia, pulmonary embolism, pneumothorax, infections, as well as others were entertained. Ms. Carbone is a 62 year old female who was sent to the ED by Dr. Perez due to a 25 pound weight gain since January as well as dyspnea on exertion, despite outpatient management with furosemide and spironolactone. She also has a one month history of left sided flank pain and her CT scan showed splanchnic congestion and increasing mesorenal varices. The patient was sent here by Dr. Perez for evaluation and for inpatient diuresis. CBC and CMP were unremarkable. Her cardiac enzymes were within normal limits. Chest x-ray showed cardiomegaly with components of congestive changes. She was given 80mg of IV Lasix. She will be seen by the hospitalist for further evaluation.. Impression Primary Impression: CHF exacerbation Departure Information Dispostion Being Evaluated By Hospitalist Referrals Gilberto Hart M.D. (PCP) Patient Instructions My [facility] Resident Tracking Resident Involvement: Resident Care Provided Care Provided: Adult ED
[2017-07-23] MEDS ORDERED: BENZ100C84 PO (11:30)
[2017-07-23] MEDS ORDERED: FRS/40 PO (11:30)
[2017-07-23] MEDS ORDERED: CANA1TAB PO (11:34)
--- NOTE | 2017-07-23 11:34 | DIAGNOSTIC IMAGING REPORT ---
CHEST ONE VIEW PORTABLE CLINICAL HISTORY: progressive SOBOE w/hx of CHF dyspnea COMPARISON STUDY: 01/31/2017 FINDINGS: Moderate cardiomegaly slightly increased in the prior exam. Increased pulmonary vasculature. Diaphragms smooth. IMPRESSION: Cardiomegaly with components of congestive failure. The above report was generated using voice recognition software. It may contain grammatical, syntax or spelling errors. Electronically signed by: Aneesh Rodriguez M.D. 07/23/2017 11:33 AM Dictated Date/Time: 07/23/2017 11:33 AM
[2017-07-23] MEDS ORDERED: SPIR100T PO (11:35)
[2017-07-23] MEDS ORDERED: METO-157 PO (11:38)
[2017-07-23 12:04] LABS: BASO % 0.7 %; BASO ABS # 0.03 K/uL (0-0.2); EOS % 3.5 %; EOS ABS # 0.16 K/uL (0-0.5); HEMATOCRIT 40.1 % (37-47); HEMOGLOBIN 13.7 g/dL (12.0-16.0); LYMPH % 42.6 %; LYMPH ABS # 1.92 K/uL (1.2-3.4); MEAN CELL VOLUME 88.7 fL (80-100); MEAN CORPUSCULAR HEMOGLOBIN 30.3 pg (25-34); MEAN CORPUSCULAR HGB CONC 34.2 g/dl (32-36); MEAN PLATELET VOLUME 10.7 fL (7.4-10.4); MONO % 10.6 %; MONO ABS # 0.48 K/uL (0.11-0.59); NEUT % 42.6 %; NEUT ABS # 1.92 K/uL (1.4-6.5); PLATELET COUNT 125 K/uL (130-400); RED CELL DISTRIBUTION WIDTH CV 14.3 % (11.5-14.5); RED CELL DISTRIBUTION WIDTH SD 46.5 fL (36.4-46.3); WHITE BLOOD COUNT 4.51 K/uL (4.8-10.8)
[2017-07-23 12:32] LABS: ALBUMIN 2.9 gm/dl (3.4-5.0); ALT/SGPT 45 U/L (12-78); AST/SGOT 55 U/L (15-37); BLOOD UREA NITROGEN 11 mg/dl (7-18); CALCIUM 8.6 mg/dl (8.5-10.1); CARBON DIOXIDE 27 mmol/L (21-32); GLUCOSE 74 mg/dl (70-99); POTASSIUM 4.2 mmol/L (3.5-5.1); SODIUM 141 mmol/L (136-145)
[2017-07-23] MEDS ORDERED: FUROSEMIDE 40 MG/4 ML VIAL ONE (12:42)
[2017-07-23] MEDS ORDERED: FUROSEMIDE INJ 80 MG in SYRINGE 0 ML IV ONE (12:45)
[2017-07-23 12:52] LABS: ALKALINE PHOSPHATASE 76 U/L (45-117); CKMB 3.8 ng/ml (0.5-3.6); TOTAL PROTEIN 7.7 gm/dl (6.4-8.2)
--- NOTE | 2017-07-23 12:57 | EMERGENCY ROOM VISIT NOTE ---
History Report prepared by Williams: Rafael Maurer Under the Supervision of: Dr. Mehdi Zamorano D.O. 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 She notes that she has a history of CHF and DM. She states that she has had a steady weight gain of 25 pounds since January 2017. She notes fluid buildup in both legs, abdomen and chest are worsening over time. She notes shortness of breath worsens with lying down and exertion. 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 She currently rates her discomfort a 7/10 in severity. She notes that she sleeps on a recliner at night. She is regularly taking Spironolactone and 80 mg of Lasix. She denies any prior history of myocardial infarction. She denies any history of smoking. She was recently diagnosed with a UTI and PNA in May 2017, though her abdominal symptoms persisted. She was given an abdominal CT and upon review showed: splanchnic congestion and increasing mesorenal varices. She denies any chest pain, fever, urinary symptoms, or chills. 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 ), No fevers, No chills, No chest pain, No urinary symptoms Note: She notes fluid buildup in both legs, abdomen and chest. She also notes left-sided flank pain. Review of Systems See HPI for pertinent positives & negatives. A total of 10 systems reviewed and were otherwise negative. Past Medical & Surgical Medical Problems: (1) Depression (2) DM2 (diabetes mellitus, type 2) (3) Emphysema of lung (4) ROME (generalized anxiety disorder) (5) Gastroparesis (6) GERD (gastroesophageal reflux disease) (7) History of left heart catheterization (LHC) (8) History of skin cancer (9) HLD (hyperlipidemia) (10) HTN (hypertension) (11) Hx MRSA infection (12) IBS (irritable bowel syndrome) (13) Influenza A (14) Kidney stone (15) GARRETT on CPAP (16) Pneumonia (17) Shortness of breath (18) SIRS (systemic inflammatory response syndrome) Surgical Problems: (1) H/O esophagogastroduodenoscopy (2) History of appendectomy (3) History of cholecystectomy (4) S/P appendectomy (5) S/P cholecystectomy (6) S/P VA-BSO Family History Diabetes mellitus Gallbladder disease Heart disease Hypertension Kidney disease Kidney stones Social History Smoking Status: Never Smoker Alcohol Use: none Drug Use: none Marital Status: Housing Status: lives with family Occupation Status: unemployed Current/Historical Medications Scheduled Amitriptyline HCl (Amitriptyline HCl), 25 MG PO HS Aspirin (Aspirin Ec), 81 MG PO QAM Benzonatate (Tessalon Perles), 100 MG PO TID Canagliflozin (Invokana), 100 MG PO DAILY Cranberry-Vitamin C-Vitamin E (Cranberry Plus Vitamin C 4200-20-3 mg-Unit), 1 CAP PO BID Fluticasone Propionate (Fluticasone Propionate), 2 SPRAYS SONALI HS Furosemide (Lasix), 40 MG PO BID Insulin Regular (Human) (Humulin R U-500 (Concentr), 100 UNITS SC DINNER Insulin Regular (Human) (Humulin R U-500 Kwikpen), 170 UNITS SC QAM Lisinopril (Lisinopril), 2.5 MG PO QAM Metoclopramide (Reglan), 10 MG PO ACHS Montelukast Sod (Montelukast Sodium), 10 MG PO HS Multivitamin (Multivitamin), 1 TAB PO QAM Omeprazole (Prilosec), 20 MG PO QAM Oxybutynin Chloride (Ditropan), 1 TAB PO TID Rosuvastatin Calcium (Rosuvastatin Calcium), 40 MG PO HS Spironolactone (Aldactone), 100 MG PO DAILY Scheduled PRN Albuterol Sulfate (Proair Respiclick), 2 PUFFS INH Q4H PRN for Chest Pain/Cough or SOB Lorazepam (Lorazepam), 0.5-1 MG PO TID PRN for Anxiety Nitroglycerin (Nitrostat), 0.4 MG UT UD PRN for Esophageal Spasm Polyethylene Glycol 3350 (Miralax), 17 GM PO DAILY PRN for Constipation Tramadol (Ultram), 100 MG PO Q6H PRN for Pain Allergies Coded Allergies: Ciprofloxacin (Verified Allergy, Unknown, MOUTH BLISTERS, HIVES, 07/23/17) Morphine (Verified Allergy, Unknown, HIVES, "DEATHLY ILL", THROWS UP, ) Oxycodone (Verified Allergy, Unknown, HIVES, VOMITING, 07/23/17) Penicillin V (Verified Allergy, Unknown, HIVES, 07/23/17) Physical Exam Vital Signs Date Time Temp Pulse Resp B/P (MAP) Pulse Ox O2 Delivery O2 Flow Rate FiO2 07/23/17 11:42 158/87 07/23/17 10:24 73 07/23/17 09:58 36.6 81 20 141/60 99 Room Air Physical Exam CONSTITUTIONAL/VITAL SIGNS: Reviewed / noted above. GENERAL: Non-toxic in appearance. INTEGUMENTARY: Warm, dry, and [place]. HEAD: Normocephalic. EYES: without scleral icterus or trauma. ENT/OROPHARYNX: clear and moist. LYMPHADENOPATHY/NECK: Is supple without lymphadenopathy or meningismus. RESPIRATORY: Lungs clear and equal. CARDIOVASCULAR: Regular rate and rhythm. GI/ABDOMEN: Soft and nontender. No organomegaly or pulsatile mass. No rebound or guarding. Normal bowel sounds. EXTREMITIES: Warm and well perfused. Bilateral pedal edema. BACK: No CVA tenderness. NEUROLOGICAL: Intact without focal deficits. PSYCHIATRIC: normal affect. MUSCULOSKELETAL: Normally developed with good muscle tone. Medical Decision & Procedures ER Provider Diagnostic Interpretation: Radiology results as stated below per my review and radiologist interpretation: CHEST ONE VIEW PORTABLE CLINICAL HISTORY: progressive SOBOE w/hx of CHF dyspnea COMPARISON STUDY: 01/31/2017 FINDINGS: Moderate cardiomegaly slightly increased in the prior exam. Increased pulmonary vasculature. Diaphragms smooth. IMPRESSION: Cardiomegaly with components of congestive failure. The above report was generated using voice recognition software. It may contain grammatical, syntax or spelling errors. Electronically signed by: Aneesh Rodriguez M.D. 07/23/2017 11:33 AM Dictated Date/Time: 07/23/2017 11:33 AM Laboratory Results 07/23/17 11:40 Red Blood Count 4.52, Mean Corpuscular Volume 88.7, Mean Corpuscular Hemoglobin 30.3, Mean Corpuscular Hemoglobin Concent 34.2, Mean Platelet Volume 10.7, Neutrophils (%) (Auto) 42.6, Lymphocytes (%) (Auto) 42.6, Monocytes (%) (Auto) 10.6, Eosinophils (%) (Auto) 3.5, Basophils (%) (Auto) 0.7, Neutrophils # (Auto ) 1.92, Lymphocytes # (Auto) 1.92, Monocytes # (Auto) 0.48, Eosinophils # (Auto ) 0.16, Basophils # (Auto) 0.03 07/23/17 11:40 Test 07/23/17 11:10 07/23/17 11:40 Creatine Kinase MB Ratio (0-3.0) White Blood Count 4.51 K/uL (4.8-10.8) Red Blood Count 4.52 M/uL (4.2-5.4) Hemoglobin 13.7 g/dL (12.0-16.0) Hematocrit 40.1 % (37-47) Mean Corpuscular Volume 88.7 fL (80-100) Mean Corpuscular Hemoglobin 30.3 pg (25-34) Mean Corpuscular Hemoglobin Concent 34.2 g/dl (32-36) Platelet Count 125 K/uL (130-400) Mean Platelet Volume 10.7 fL (7.4-10.4) Neutrophils (%) (Auto) 42.6 % Lymphocytes (%) (Auto) 42.6 % Monocytes (%) (Auto) 10.6 % Eosinophils (%) (Auto) 3.5 % Basophils (%) (Auto) 0.7 % Neutrophils # (Auto) 1.92 K/uL (1.4-6.5) Lymphocytes # (Auto) 1.92 K/uL (1.2-3.4) Monocytes # (Auto) 0.48 K/uL (0.11-0.59) Eosinophils # (Auto) 0.16 K/uL (0-0.5) Basophils # (Auto) 0.03 K/uL (0-0.2) RDW Standard Deviation 46.5 fL (36.4-46.3) RDW Coefficient of Variation 14.3 % (11.5-14.5) Immature Granulocyte % (Auto) 0.0 % Immature Granulocyte # (Auto) 0.00 K/uL (0.00-0.02) Anion Gap 4.0 mmol/L (3-11) Est Creatinine Clear Calc Drug Dose 160.7 ml/min Estimated GFR () 120.2 Estimated GFR (Non- 103.7 BUN/Creatinine Ratio 21.8 (10-20) Calcium Level 8.6 mg/dl (8.5-10.1) Total Bilirubin 0.6 mg/dl (0.2-1) Aspartate Amino Transf (AST/SGOT) 55 U/L (15-37) Alanine Aminotransferase (ALT/SGPT) 45 U/L (12-78) Alkaline Phosphatase 76 U/L (45-117) Creatine Kinase MB 3.8 ng/ml (0.5-3.6) Troponin I < 0.015 ng/ml (0-0.045) Total Protein 7.7 gm/dl (6.4-8.2) Albumin 2.9 gm/dl (3.4-5.0) Globulin 4.8 gm/dl (2.5-4.0) Albumin/Globulin Ratio 0.6 (0.9-2) Chemistry Specimen Hemolysis Laboratory results as stated above per my review. Medications Administered Medications (Trade) Dose Ordered Sig/Penny Route Start Time Stop Time Status Last Admin Dose Admin Furosemide 80 mg/ Syringe 8 ml @ 4 mls/min ONE ONCE IV 07/23/17 12:45 07/23/17 12:46 DC 07/23/17 12:53 4 MLS/MIN Furosemide (Lasix Inj) 80 mg STK-MED ONCE .ROUTE 07/23/17 12:42 07/23/17 12:43 DC 07/23/17 12:45 80 MG ECG Indication: other (leg swelling) Rate (beats per minute): 72 Rhythm: normal sinus Findings: no acute ischemic change, no ectopy ED Course 1130: Previous medical records were reviewed. The patient was evaluated in room A9B. A complete history and physical examination was performed. 1215: I spoke with MISAEL Adams. We discussed the patients case. The patient will be evaluated by the [facility] for further management. Medical Decision Prior records/ancillary studies reviewed. Triage Nursing notes reviewed. The patient's history was concerning for respiratory difficulties. Differential diagnosis: Etiologies such as infections, reactive airway disease, pneumonia, pneumothorax , COPD, CHF, cardiac ischemia, pulmonary embolism, musculoskeletal, gastrointestinal, as well as others were entertained. This is a 62-year-old female who presents to the ED with a chief complaint of 25 pound weight gain since January. The patient has also been recently experiencing exertional dyspnea and orthopnea. The patient has been on furosemide and spironolactone as outpatient but this does not seem to be working. The patient had a CT scan recently that showed some dilatation of the blood vessels around the kidney and spleen. The patient was sent here for evaluation of her symptoms and for inpatient diuresis. Blood work here was unremarkable. Cardiac enzymes are normal. Chest x-ray reveals some cardiomegaly and mild congestive changes. The patient was given IV Lasix 80 mg. She will be seen by the hospitalist for further inpatient evaluation and care. Medication Reconcilliation Current Medication List: was personally reviewed by me Blood Pressure Screening Patient's blood pressure: Elevated blood pressure Referred to hospitalist Consults Time Called: 1145 Consulting Physician: MISAEL Adams Returned Call: 1215 I spoke with MISAEL Adams. We discussed the patients case. The patient will be evaluated by the [facility] for further management. Impression Primary Impression: CHF exacerbation Scribe Attestation The scribe's documentation has been prepared under my direction and personally reviewed by me in its entirety. I confirm that the note above accurately reflects all work, treatment, procedures, and medical decision making performed by me. Departure Information Dispostion Being Evaluated By Hospitalist Referrals Gilberto Hart M.D. (PCP) Patient Instructions My [facility]
[2017-07-23] MEDS ORDERED: ONDANSETRON INJ 2 MG/ML 2 ML VIAL IV PRN (14:00)
[2017-07-23] MEDS ORDERED: NITROGLYCERIN 0.4 MG SL PER TAB CHARGE SL PRN (14:00)
[2017-07-23] MEDS ORDERED: DEXTROSE 50% 50 ML SYR IV PRN (14:15)
[2017-07-23] MEDS ORDERED: GLUCAGON FOR INJ 1 MG VIAL SQ PRN (14:15)
[2017-07-23] MEDS ORDERED: GLUCOSE 40% GEL 15 GM TUBE PO PRN (14:15)
[2017-07-23] MEDS ORDERED: GLUCOSE 10 TABS/TUBE PO PRN (14:15)
[2017-07-23] MEDS ORDERED: SALI1SPR3 NAE (14:25)
[2017-07-23] MEDS ORDERED: [UNRECOGNIZED DRUG - CODE] SL (14:25)
[2017-07-23] MEDS ORDERED: LORAZEPAM 0.5 MG TAB PO PRN (14:30)
[2017-07-23] MEDS ORDERED: TRAMADOL HCL 50 MG TAB PO PRN (14:30)
[2017-07-23] MEDS ORDERED: POLYETHYLENE (MIRALAX) 17 GM PACK PO PRN (14:30)
[2017-07-23] MEDS ORDERED: PHARMACY GLYCEMIC MGMT CONSULT PRN (14:33)
[2017-07-23] MEDS ORDERED: ALBUT/IPRATROP 3MG/0.5MG NEB 3 ML VIAL INH PRN (14:45)
--- NOTE | 2017-07-23 14:52 | Pharmacy Progress Note ---
Glycemic Control Intl Consult Date of Service Jul 23, 2017. Scope Glycemic Pharmacist consulted by PALLAVI Urena on 07/23/17 for glycemic control and to write orders per [facility] inpatient glycemic control protocol Objective Weight (Kilograms): 132.600 Accuchecks BSG (last 24hrs): Test 07/23/17 11:40 Random Glucose 74 mg/dl (70-99) Laboratory Data (last 24hrs) Test 07/23/17 11:40 Anion Gap 4.0 mmol/L BUN/Creatinine Ratio 21.8 Blood Urea Nitrogen 11 mg/dl Creatinine 0.50 mg/dl Potassium Level 4.2 mmol/L Sodium Level 141 mmol/L White Blood Count 4.51 K/uL Red Blood Count 4.52 M/uL Hemoglobin 13.7 g/dL Hematocrit 40.1 % Mean Corpuscular Volume 88.7 fL Mean Corpuscular Hemoglobin 30.3 pg Mean Corpuscular Hemoglobin Concent 34.2 g/dl Platelet Count 125 K/uL Mean Platelet Volume 10.7 fL Neutrophils (%) (Auto) 42.6 % Lymphocytes (%) (Auto) 42.6 % Monocytes (%) (Auto) 10.6 % Eosinophils (%) (Auto) 3.5 % Basophils (%) (Auto) 0.7 % Neutrophils # (Auto) 1.92 K/uL Lymphocytes # (Auto) 1.92 K/uL Monocytes # (Auto) 0.48 K/uL Eosinophils # (Auto) 0.16 K/uL Basophils # (Auto) 0.03 K/uL Recent Pertinent Medications Outpatient Anti-diabetic Regimen: * U-500 170 units with breakfast, 100 units with dinner * A1c = 7.3 % 02/01/17 Risk Factors for Insulin Resistance: * No major stressors at this point Assessment & Plan ASSESSMENT: * 62 y/o female, known to the pharmacy glycemic service, admitted for CHF * She is controlled on U-500 insulin as an outpatient - doses slightly increased from her last admission when we followed her * Typically, for patients on U-500, we cut back their insulin by ~50% on admission and titrate if needed * From her last admission, she seemed to do well on 1/2 of her outpatient U-500 doses * Current BSG is 74 but she had her full dose of U-500 this AM * Will plan to give next dose with dinner, which is typical for her * Will also add Novolog with a correction factor to provide additional insulin should she need it PLAN FOR INPATIENT GLYCEMIC CONTROL: * U-500 85 units with breakfast, 55 units with dinner * Correctional Insulin with NOVOLOG per scale ACHS or Q6hrs while NPO * Goal Range: Low 110 mg/dL - High 140 mg/dL * Correction Factor: 20 mg/dL/unit * A1c w/ AM labs to assess recent outpatient control * Please note that the plan above was derived based on current level of insulin resistance and hospital stress. These recommendations are appropriate for inpatient admission only. Plan of care upon discharge will need to be reassessed to avoid potential outpatient hypo/hyperglycemia. Thank you.
[2017-07-23] MEDS: INSULIN ASPART 100 UNITS/ML 3 ML PEN SC SCH ×3 (17:08→23:57)
[2017-07-23 17:11] VITALS: BP 138/74; PULSE 73; TEMP 36.7; O2SAT 100; Ht 165.1 cm; Wt 124.6 kg
[2017-07-23] MEDS ORDERED: DEXTROSE 5% IV SCH (18:00)
[2017-07-23] MEDS ORDERED: AZTREONAM IV SCH (18:00)
[2017-07-23] MEDS: FUROSEMIDE INJ 40 MG in SYRINGE 0 ML IV SCH (18:03)
[2017-07-23 18:09] LABS: INR 1.1 (0.9-1.1); PTT PATIENT 26.9 SECONDS (21.0-31.0)
--- NOTE | 2017-07-23 19:06 | ECHOCARDIOGRAM REPORT ---
*NOTICE TO RECEIVING LIBERTARIAN AGENCY This information is strictly Confidential and protected under [place] law. [place] law prohibits you from making any further disclosure of this information unless further disclosure is expressly permitted by the written consent of the person to whom it pertains or is authorized by law. A general authorization for the release of medical or other information is not sufficient for this purpose. Hospital accepts no responsibility if the information is made available to any other person, INCLUDING THE PATIENT. Interpretation Summary * Name: HOSSEIN MCALLISTER Study Date: 07/23/2017 03:11 PM BP: 158/66 mmHg * [facility] HR: 75 * : 1955 (M/d/yyyy) Gender: Female Height: 65 in * Age: 62 yrs Ethnicity: [place] Weight: 292 lb * Ordering Physician: Susu Khan * Referring Physician: UNKNOWN * Performed By: Zamzam Denise RCS * * Reason For Study: CHF * BSA: 2.3 m2 * The study was technically adequate. * Compared to prior study, changes are noted. * -- Conclusions -- * Ejection Fraction = 65-70%. * There is mild concentric left ventricular hypertrophy. * The left atrium is moderately dilated. * Diastolic dysfunction, Grade II (pseudonormalization pattern). * No significant valvular pathology. Procedure Details * A complete two-dimensional transthoracic echocardiogram was performed (2D, M-mode, Doppler and color flow Doppler). * The study was technically difficult. * There were technical limitations due to patient'sbody habitus * A contrast injection of Definity was performed to improve assessment of LV function. * Contrast was injected into an intravenous site in the left arm. * One vial of Definity ultrasound contrast was diluted in normal saline to a total volume of 10 ml. A total of '1' ml of solution was administered during imaging. * Lot # [id number] of Definity utilized for procedure. * Expiration date . * The attending nurse who injected the contrast agent was Karlos Barclay RN. Left Ventricle * The left ventricle is normal in size. * There is no thrombus. * There is mild concentric left ventricular hypertrophy. * Ejection Fraction = 65-70%. * Left ventricular systolic function is normal. * The left ventricular wall motion is normal. Right Ventricle * The right ventricle is normal size. * The right ventricular systolic function is normal as assessed by tricuspid annular plane systolic excursion (TAPSE) (normal >1.5 cm). Atria * The left atrium is moderately dilated. * Right atrial size is normal. * There is no evidence of atrial septal defect, but resolution does not allow assessment for a patent foramen ovale. Mitral Valve * The mitral valve is normal. * There is no mitral valve stenosis. * Significant mitral regurgitation is absent. Tricuspid Valve * The tricuspid valve is normal. * There is no tricuspid stenosis. * Significant tricuspid regurgitation is absent. Aortic Valve * The aortic valve is not well visualized. * Aortic stenosis is absent. * There is no significant aortic regurgitation. Pulmonic Valve * The pulmonary valve is not well seen, but the Doppler examination is normal without significant regurgitation or stenosis. Great Vessels * The aortic root and proximal ascending aorta are normal sized. Pericardium/Pleural * There is no pericardial effusion. Great Vessels * Normal inferior vena cava diameter and respiratory variation suggests normal central venous pressure. Left Ventricular Diastolic Function * Diastolic dysfunction, Grade II (pseudonormalization pattern). MMode 2D Measurements and Calculations IVSd 1.2 cm IVSs 1.4 cm LVIDd 5.2 cm LVIDs 3.3 cm LVPWd 1.2 cm LVPWs 1.6 cm IVS/LVPW 1.0 FS 37.3 % EDV(Teich) 131.8 ml ESV(Teich) 43.7 ml EF(Teich) 66.9 % EDV(cubed) 143.9 ml ESV(cubed) 35.5 ml EF(cubed) 75.3 % % IVS thick 12.1 % % LVPW thick 32.0 % LV mass(C)d 263.7 grams LV mass(C)dI 113.5 grams/m\S\2 LV mass(C)s 180.2 grams LV mass(C)sI 77.6 grams/m\S\2 SV(Teich) 88.1 ml SI(Teich) 37.9 ml/m\S\2 SV(cubed) 108.4 ml SI(cubed) 46.7 ml/m\S\2 Ao root diam 3.5 cm Ao root area 9.5 cm\S\2 ACS 1.5 cm LA dimension 4.5 cm asc Aorta Diam 2.8 cm LA/Ao 1.3 EDV(sp4-el) 130.0 ml ESV(sp4-el) 59.0 ml EF(sp4-el) 54.6 % LVAd ap2 29.3 cm\S\2 LVLd ap2 8.2 cm EDV(MOD-sp2) 87.3 ml EDV(sp2-el) 89.1 ml LVAs ap2 15.1 cm\S\2 LVLs ap2 6.5 cm ESV(MOD-sp2) 28.5 ml ESV(sp2-el) 29.5 ml EF(MOD-sp2) 67.4 % EF(sp2-el) 66.9 % SV(MOD-sp2) 58.9 ml SI(MOD-sp2) 25.3 ml/m\S\2 SV(sp4-el) 71.0 ml SI(sp4-el) 30.6 ml/m\S\2 SV(sp2-el) 59.6 ml SI(sp2-el) 25.7 ml/m\S\2 Doppler Measurements and Calculations MV E max elva 91.4 cm/sec MV A max elva 107.1 cm/sec MV E/A 0.85 MV P1/2t max elva 100.3 cm/sec MV P1/2t 96.7 msec MVA(P1/2t) 2.3 cm\S\2 MV dec slope 303.8 cm/sec\S\2 MV dec time 0.24 sec Ao V2 max 171.2 cm/sec Ao max PG 11.7 mmHg Ao max PG (full) 6.9 mmHg LV V1 max PG 4.8 mmHg LV V1 max 109.3 cm/sec PA V2 max 151.4 cm/sec PA max PG 9.2 mmHg TR max elva 215.7 cm/sec
[2017-07-23 19:41] VITALS: BP 121/70; PULSE 68; TEMP 36.8; O2SAT 98
--- NOTE | 2017-07-23 19:46 | CARDIOLOGY CONSULTATION ---
DATE OF CONSULTATION: 07/23/2017 REFERRING PHYSICIAN: Romain Chase MD. REASON FOR CONSULTATION: Acute on chronic decompensated diastolic heart failure. HISTORY OF PRESENT ILLNESS: Ms. Carbone is a 62-year-old female who was seen in the cardiology clinic on 07/22/2017. At that time, she was noted to have elevated weight, worsening edema, abdominal bloating. Some lab studies were performed. Today, she was referred to the ER for admission and inpatient treatment of her heart failure. She received a dose of 80 mg IV Lasix in the ER with approximately 1.2 liters of diuresis. The patient reports worsening edema and bloating over a nearly 6-month period. She has gained 25 pounds since the summer. Reports gradual dyspnea on exertion and decline in functional capacity. Denies orthopnea, however, she sleeps practically upright, wearing a CPAP on a nightly basis. Currently, the patient is completing her evening meal. She denies chest pain or shortness of breath at rest. There are no dysrhythmias on telemetry. Offers no other complaints at this time. REVIEW OF SYSTEMS: The pertinent positive noted above, a comprehensive 10-system review is otherwise negative. PAST MEDICAL HISTORY: 1. Chronic diastolic heart failure. 2. Hyperlipidemia. 3. Diabetes. 4. Crohn's disease. 5. Nonobstructive coronary disease by cardiac catheterization in 2001. 6. Esophageal dyskinesis. 7. Gastroparesis. 8. Irritable bowel syndrome. 9. Hypertension. 10. Sleep apnea on CPAP. 11. Pickwickian syndrome. 12. 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 13. Morbid obesity. 14. Secondary pulmonary hypertension. 15. Diabetic retinopathy. 16. Chronic constipation. 17. Chronic rhinitis. PAST SURGICAL HISTORY: 1. EGD, colonoscopy. 2. Arthroscopic knee surgery. 3. Cardiac catheterization in 2001 reportedly normal. 4. Appendectomy. 5. Cholecystectomy. 6. Ovarian tumor removal with hysterectomy. SOCIAL HISTORY: Lifelong nonsmoker. She is and lives with her family. FAMILY HISTORY: Negative for premature CAD or sudden cardiac . ALLERGIES: CIPROFLOXACIN, OXYCODONE, PENICILLIN. CURRENT OUTPATIENT MEDICATIONS: 1. Furosemide 40 mg twice daily with an additional 2 tablets per day as instructed. 2. Aldactone 100 mg daily. 3. Lisinopril 2.5 mg daily. 4. Reglan before meals and bedtime. 5. Flonase 2 sprays each nostril daily. 6. Ditropan 5 mg 3 times daily. 7. Sliding scale insulin. 8. Crestor 40 mg daily. 9. Albuterol inhaler. 10. Prilosec 20 mg daily. 11. Invokana 100 mg daily. 12. Elavil 25 mg at bedtime. 13. Singulair 10 mg at bedtime. 14. Ativan 0.5 mg to 1 mg 3 times a day as needed. 15. Sublingual nitroglycerin as needed. 16. Tramadol 50 mg every 6 hours as needed for pain. 17. Aspirin 81 mg daily. 18. Multivitamin daily. Chest x-ray demonstrates congestive heart failure. LABORATORY DATA: Sodium 141, potassium 4.2, chloride 110, CO2 is 27, BUN is 11, creatinine is 0.50. Troponin less than 0.015. White blood cell count 4.51, hemoglobin is 13.7, platelet count is 125. Telemetry demonstrates sinus rhythm. ECG ON ADMISSION: Normal sinus rhythm, normal ECG. PHYSICAL EXAMINATION: VITAL SIGNS: Temperature on admission is 36.6 degrees centigrade, pulse 74 beats per minute and regular, blood pressure is 158/66, respiratory rate is 12 breaths per minute, pulse oximetry is 97% on room air. GENERAL: NAD, obese, awake, alert and oriented x3. HEENT: Her mucous membranes are moist. No scleral icterus. Conjunctivae pink. NECK: Supple. There is no JVD appreciated in upright position. No carotid bruit. HEART: Regular with a 1-2/6 systolic ejection murmur heard best at the right second intercostal space. LUNGS: Demonstrate diminished breath sounds at the bases bilaterally. No rales, rhonchi or wheeze. ABDOMEN: Obese, nontender, nondistended, normal bowel sounds. EXTREMITIES: Demonstrate edema, 1-2+ up to the knees. NEUROLOGIC: Demonstrates no focal motor deficit. FINAL IMPRESSION: 1. A 62-year-old female with acute on chronic decompensated diastolic heart failure. 2. Pickwickian syndrome with obstructive sleep apnea on CPAP daily. 3. Hypertension -- controlled. 4. 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 PLAN AND RECOMMENDATIONS: Continue intravenous diuretic therapy, Lasix 40 mg twice daily in addition to Aldactone 100 mg daily orally. Consider addition of metolazone pending urine output response to intravenous Lasix therapy. Continue to follow daily weight, urine output, electrolytes, and GFR daily. May consider transition from oral Lasix to Bumex at the time of discharge. Other cardiovascular medications will be continued as listed above. Thank you for allowing me to take part in the care of your patient. I will continue to follow along during hospitalization.
--- NOTE | 2017-07-23 20:28 | History and Physical ---
History & Physical Date & Time of Service: Jul 23, 2017 at 18:03 Chief Complaint: Chf Exacerbation Primary Care Physician: Gilberto Hart M.D. History of Present Illness Source: patient, family, clinic records, hospital records Pt is 62 y/o F with PMH GARRETT, insulin dependent diabetes, pickwickian syndrome, chronic R heart and diastolic HF, chronic hepatitic cirrhosis 2/2 nonalcoholic steatohepatitis presented to ER with c/o increased dyspnea on exertion. Pt follows with Dr Perez. She reports over past couple of months changes with her diuretics without significant improvement and saw Dr Perez yesterday recommend admission. She reports past month with increased dyspnea on exertion with a few steps, orthopnea - sleeping in recliner and increased LE edema. Reports 25# weight gain since January. Pt states was getting epistaxis daily and was on Flonase. That was stopped and now using saline nasal spray, still with intermittent epistaxis, none today and doesn't think any yesterday. Pt c/o dysuria past 2 weeks. Denies hematuria or urinary frequency or urgency or retention. Pt with hx LLQ, L flank abdominal pain x 3 months. Denies worsening. followed out pt and had CT abd/pelvis with IV contrast on 07/17/17: "Impression : Increasing size of mesorneal varices with decreasing portal vein caliber compatible with portal systemic shunt. Recommend non-emergent interventional radiology consult.". Pt is to be getting appt with Dr Rosa Garcia. Reports blood sugars range from 80s-200's. Denies fever/chills, diaphoresis, N/V /D/C, MEANS, dizziness, syncope, vision changes, neck pain, CP, palpitations, cough , sore throat, choking, otalgia, rhinorrhea, extremity erythema, rashes. Hx echo: 02/02: EF: 65-70%. In ER pt afebrile, P: 81, BP: 158/87, R:20, O2:99% on RA. No leukocytosis. CXR: cardiomegaly with CHF, EKG: NSR, rate 72. Given 80mg lasix IV in ER. Pt denied farley. Past Medical/Surgical History Medical Problems: (1) Depression Status: Chronic (2) DM2 (diabetes mellitus, type 2) Status: Chronic (3) Emphysema of lung Status: Resolved (4) ROME (generalized anxiety disorder) Status: Chronic (5) Gastroparesis Status: Chronic (6) GERD (gastroesophageal reflux disease) Status: Chronic (7) History of left heart catheterization (LHC) Permanent Comment: normal 2002 Status: Chronic (8) HLD (hyperlipidemia) Status: Chronic (9) HTN (hypertension) Status: Chronic (10) IBS (irritable bowel syndrome) Status: Chronic (11) Kidney stone Status: Resolved (12) GARRETT on CPAP Status: Chronic (13) Pneumonia Status: Resolved Surgical Problems: (1) H/O esophagogastroduodenoscopy Status: Chronic (2) History of appendectomy Status: Resolved (3) History of cholecystectomy Status: Resolved (4) S/P appendectomy Status: Chronic (5) S/P cholecystectomy Status: Chronic (6) S/P VA-BSO Status: Chronic Family History Diabetes mellitus Gallbladder disease Heart disease Hypertension Kidney disease Kidney stones Social History Smoking Status: Never Smoker Smokeless Tobacco Use: No Alcohol Use: none Drug Use: none Marital Status: Housing status: lives with significant other Occupational Status: unemployed Immunizations History of Influenza Vaccine: Yes Influenza Vaccine Date: Apr 18, 2016 History of Tetanus Vaccine?: No Tetanus Immunization Date: Apr 14, 2011 History of Pneumococcal: Yes Pneumococcal Date: May 27, 2006 History of Hepatitis B Vaccine: No Multi-Drug Resistant Organisms History of MDRO: Yes Type of MDRO: MRSA Allergies Coded Allergies: Ciprofloxacin (Verified Allergy, Unknown, MOUTH BLISTERS, HIVES, 07/23/17) Morphine (Verified Allergy, Unknown, HIVES, "DEATHLY ILL", THROWS UP, ) Oxycodone (Verified Allergy, Unknown, HIVES, VOMITING, 07/23/17) Penicillin V (Verified Allergy, Unknown, HIVES, 07/23/17) Home Medications Scheduled Amitriptyline HCl (Amitriptyline HCl), 25 MG PO HS Aspirin (Aspirin Ec), 81 MG PO QAM Furosemide (Lasix), 40 MG PO BID Insulin Regular (Human) (Humulin R U-500 (Concentr), 100 UNITS SC DINNER Insulin Regular (Human) (Humulin R U-500 Kwikpen), 170 UNITS SC QAM Lisinopril (Lisinopril), 2.5 MG PO QAM Montelukast Sod (Montelukast Sodium), 10 MG PO HS Multivitamin (Multivitamin), 1 TAB PO QAM Nitroglycerin (Nitrostat), 1 TAB SL DAILY Omeprazole (Prilosec), 20 MG PO QAM Oxybutynin Chloride (Ditropan), 1 TAB PO TID Rosuvastatin Calcium (Rosuvastatin Calcium), 40 MG PO HS Saline (Saline Nasal [place]), 2 SPRAYS SONALI BID Spironolactone (Aldactone), 100 MG PO DAILY Scheduled PRN Albuterol Sulfate (Proair [place]), 2 PUFFS INH Q4H PRN for Chest Pain/Cough or SOB Lorazepam (Lorazepam), 0.5-1 MG PO TID PRN for Anxiety Metoclopramide (Reglan), 10 MG PO ACHS PRN for GI Upset Polyethylene Glycol 3350 (Miralax), 17 GM PO DAILY PRN for Constipation Tramadol (Ultram), 100 MG PO Q6H PRN for Pain Review of Systems Constitutional: No fever, No chills, No sweats, No weight loss Eyes: No worsening of vision, No eye pain, No redness, No discharge, No diplopia, No problem reported ENT: + problem reported (see HPI) Respiratory: + problem reported (see HPI), No hemoptysis Cardiovascular: + problem reported (see HPI) Abdomen: + problem reported (see HPI), No GI bleeding Musculoskeletal: No swelling, No calf pain Genitourinary - Female: + dysuria, + problem reported (see HPI) Neurologic: No memory loss, No paralysis, No numbness/tingling, No vertigo Endocrine: No excessive thirst, No excessive urination Integumentary: No rash, No itch Physical Exam Vital Signs Date Time Temp Pulse Resp B/P (MAP) Pulse Ox O2 Delivery O2 Flow Rate FiO2 07/23/17 17:11 36.7 73 19 138/74 100 Room Air 07/23/17 14:57 74 17 07/23/17 14:52 74 17 07/23/17 14:47 74 22 07/23/17 14:42 79 20 97 07/23/17 14:37 77 16 95 07/23/17 14:32 77 20 97 07/23/17 14:27 75 16 94 07/23/17 14:22 75 21 96 07/23/17 14:17 76 24 95 07/23/17 14:12 75 22 96 07/23/17 14:02 74 18 97 07/23/17 13:57 80 16 98 07/23/17 13:52 79 20 96 07/23/17 13:47 83 19 96 07/23/17 13:37 82 23 98 07/23/17 13:32 81 17 97 07/23/17 13:27 78 19 97 07/23/17 13:22 76 07/23/17 13:22 76 15 96 07/23/17 13:17 78 27 96 07/23/17 13:07 79 15 07/23/17 13:02 77 19 07/23/17 13:01 158/66 07/23/17 12:47 75 92 07/23/17 12:42 73 93 07/23/17 12:37 72 93 07/23/17 12:32 70 94 07/23/17 12:27 71 95 07/23/17 12:22 69 95 07/23/17 12:17 72 95 07/23/17 12:12 73 97 07/23/17 12:07 75 96 07/23/17 12:02 74 96 07/23/17 11:57 72 95 07/23/17 11:52 72 97 07/23/17 11:47 76 97 07/23/17 11:42 78 17 07/23/17 11:42 158/87 07/23/17 11:37 81 21 07/23/17 11:35 158/87 07/23/17 11:32 80 18 98 07/23/17 11:27 79 23 97 07/23/17 11:22 73 18 97 07/23/17 11:17 74 17 96 07/23/17 11:12 73 20 96 07/23/17 11:07 74 16 97 07/23/17 11:02 72 17 96 07/23/17 10:57 73 16 95 07/23/17 10:52 77 26 97 07/23/17 10:47 77 19 98 07/23/17 10:42 78 20 97 07/23/17 10:37 76 16 97 07/23/17 10:32 74 17 96 07/23/17 10:27 74 18 96 07/23/17 10:24 73 07/23/17 09:58 36.6 81 20 141/60 99 Room Air General Appearance: no apparent distress, + obese Head: normocephalic, atraumatic Eyes: normal inspection, PERRL, EOMI, sclerae normal ENT: hearing grossly normal, pharynx normal, + pertinent finding (mucous membranes moist. bilateral nares with scabs, no epistaxis) Neck: supple, trachea midline Respiratory/Chest: chest non-tender, no respiratory distress, no accessory muscle use, + decreased breath sounds (throughout) Cardiovascular: regular rate, rhythm, no murmur Abdomen/GI: normal bowel sounds, soft, + pertinent finding (distended secondary to adipose tissue, +tenderness to palpation LLQ and L flank, difficult to assess for masses secondary to adipose tissue) Back: no CVA tenderness Extremities/Musculoskelatal: no calf tenderness, normal capillary refill, non- tender, + pedal edema (1-2+bilaterally) Neurologic/Psych: alert, normal mood/affect, oriented x 3 Skin: normal color, warm/dry, + pertinent finding (+several scabs to right posterior shoulder) Diagnostics Laboratory Results Results Past 24 Hours Test 07/23/17 11:10 07/23/17 11:40 07/23/17 16:46 07/23/17 16:47 Range/Units Creatine Kinase MB Ratio 0-3.0 White Blood Count 4.51 4.8-10.8 K/uL Red Blood Count 4.52 4.2-5.4 M/uL Hemoglobin 13.7 12.0-16.0 g/dL Hematocrit 40.1 37-47 % Mean Corpuscular Volume 88.7 80-100 fL Mean Corpuscular Hemoglobin 30.3 25-34 pg Mean Corpuscular Hemoglobin Concent 34.2 32-36 g/dl Platelet Count 125 130-400 K/uL Mean Platelet Volume 10.7 7.4-10.4 fL Neutrophils (%) (Auto) 42.6 % Lymphocytes (%) (Auto) 42.6 % Monocytes (%) (Auto) 10.6 % Eosinophils (%) (Auto) 3.5 % Basophils (%) (Auto) 0.7 % Neutrophils # (Auto) 1.92 1.4-6.5 K/uL Lymphocytes # (Auto) 1.92 1.2-3.4 K/uL Monocytes # (Auto) 0.48 0.11-0.59 K/uL Eosinophils # (Auto) 0.16 0-0.5 K/uL Basophils # (Auto) 0.03 0-0.2 K/uL RDW Standard Deviation 46.5 36.4-46.3 fL RDW Coefficient of Variation 14.3 11.5-14.5 % Immature Granulocyte % (Auto) 0.0 % Immature Granulocyte # (Auto) 0.00 0.00-0.02 K/uL Urine Color DK YELLOW Urine Appearance CLEAR CLEAR Urine pH 7.5 4.5-7.5 Urine Specific [place] 1.021 1.000-1.030 Urine Protein NEG NEG Urine Glucose (UA) NEG NEG Urine Ketones NEG NEG Urine Occult Blood NEG NEG Urine Nitrite NEG NEG Urine Bilirubin NEG NEG Urine Urobilinogen NEG NEG Urine Leukocyte Esterase SMALL NEG Urine WBC (Auto) 5-10 0-5 /hpf Urine RBC (Auto) 0-4 0-4 /hpf Urine Hyaline Casts (Auto) 0 0-5 /lpf Urine Epithelial Cells (Auto) >30 0-5 /lpf Urine Bacteria (Auto) 1+ NEG Sodium Level 141 136-145 mmol/L Potassium Level 4.2 3.5-5.1 mmol/L Chloride Level 110 98-107 mmol/L Carbon Dioxide Level 27 21-32 mmol/L Anion Gap 4.0 3-11 mmol/L Blood Urea Nitrogen 11 7-18 mg/dl Creatinine 0.50 0.60-1.20 mg/dl Est Creatinine Clear Calc Drug Dose 160.7 ml/min Estimated GFR () 120.2 Estimated GFR (Non- 103.7 BUN/Creatinine Ratio 21.8 10-20 Random Glucose 74 70-99 mg/dl Calcium Level 8.6 8.5-10.1 mg/dl Total Bilirubin 0.6 0.2-1 mg/dl Aspartate Amino Transf (AST/SGOT) 55 15-37 U/L Alanine Aminotransferase (ALT/SGPT) 45 12-78 U/L Alkaline Phosphatase 76 45-117 U/L Creatine Kinase MB 3.8 0.5-3.6 ng/ml Troponin I < 0.015 < 0.015 0-0.045 ng/ml Total Protein 7.7 6.4-8.2 gm/dl Albumin 2.9 3.4-5.0 gm/dl Globulin 4.8 2.5-4.0 gm/dl Albumin/Globulin Ratio 0.6 0.9-2 Chemistry Specimen Hemolysis Bedside Glucose 55 70-90 mg/dl Test 07/23/17 17:04 07/23/17 17:44 Range/Units Bedside Glucose 87 70-90 mg/dl Prothrombin Time 11.6 9.0-12.0 SECONDS Prothromb Time International Ratio 1.1 0.9-1.1 Activated Partial Thromboplast Time 26.9 21.0-31.0 SECONDS Partial Thromboplastin Ratio 1.0 Microbiology Results 07/23/17 Urine Culture, Received Pending Diagnostic Radiology CXR: IMPRESSION: Cardiomegaly with components of congestive failure. EKG EKG: NSR, rate 72 Read by Manager Consumer Insights: Normal sinus rhythm Normal ECG When compared with ECG of 02-FEB-2017 06:32, No significant change was found Confirmed by Henri Singer ([id number]) on 07/23/2017 3:26:07 PM Impression Assessment and Plan ACUTE ON CHRONIC DIASTOLIC HEART FAILURE pt with increased LE edema and weight gain over past couple months. CXR: IMPRESSION: Cardiomegaly with components of congestive failure. Vitals stable. Pt given 80mg Lasix IV in ER. urinated approx 1200ml -lasix 40mg IV BID -continue spironolactone -monitor I&O's -trend troponin -echo -cardiology consult -cbc, prp in am DYSURIA afebrile, no leukocytosis. U/A: WBC: 5-10, leuk esterase small, 1+bacteria, >30 epi With symptoms will start abx pending urine culture -aztreonam HTN stable -continue lisinopril GARRETT -CPAP HS per home settings DM - INSULIN DEPENDENT HA1C 7.4 on 07/10/17. pt on Humulin U-500 -glycemic consult to assist in management COPD No wheezing. no infiltrate on CXR. afebrile -duonebs prn DYSLIPIDEMIA -lipid panel in am -continue statin GERD/GASTROPARESIS -continue PPI -continue reglan prn ANXIETY -continue ativan prn DVT PROPHYLAXIS -lovenox DISPOSITION -admit tele -Full Code as per discussion with pt -Follows with Dr Hart for routine care Pt was seen with Dr Chase. See addendum Attending Note: Patient is a 62 yr female with multiple comorbidities presents with history of worsening SOB on exertion, B/L LE edema, weight gain, orthopnea, dysuria and 2- 3 months history of LLQ and left flank pain as per HPI. She states she has been taking her diuretics regularly and has been following with her Manager [employer] who recommended to be admitted for IV diuresis and medication adjustment. She also states having intermittent epistaxis and her blood sugar levels have been very labile lately. Physical Exam: Vitals signs as noted above General Appearance:Obese, no apparent distress Head: normocephalic, Atraumatic Eyes: normal inspection, EOMI, PERRL Neck: supple, Trachea midline Respiratory/Chest: Decreased breath sounds, CTA Cardiovascular: S1, S2, No murmur Abdomen/GI:Soft, LLQ and left flank tender, Bowel sounds present Extremities/Musculoskelatal:normal inspection, B/L LE 3+ edema Neurologic/Psych:AAOX3, grossly no focal neurological deficits Skin:normal color,warm Assessment and Plan: Acute on Chronic Diastolic Failure: Start IV diuretics Daily weight, I/Os, Low salt diet, Fluid restriction Update ECHO Cardiology consulted Monitor electrolytes LLQ Abdominal and Left Flank Pain: Reports pain has been since 2-[address]:showed increasing size of mesorneal varices with decreasing portal vein caliber compatible with portal systemic shunt. Patient to be seen by Interventional radiology Dr Rosa Garcia as outpatient Dysuria: Empirically start on Azactam for possible UTI Urine culture ordered Cirrhosis 2/2 nonalcoholic steatohepatitis: Continue Spironolactone I personally reviewed the record. Patient is interviewed and examined at bedside. Patient's care is coordinated with Susu Khan PA-C. Please refer to the documentation above for details of patient's presentation and for discussion of other issues. 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 Y/N: Yes Risk Level: Moderate Given or contraindicated: Enoxaparin (Lovenox)SQ Additional Copies To Gilberto Hart M.D.
[2017-07-23] MEDS: HUMULIN R U SC SCH (20:38)
[2017-07-23] MEDS: ENOXAPARIN 40 MG/0.4 ML SYR SC SCH (21:11)
[2017-07-23] MEDS: SODIUM CHLORIDE 0.65% NA SOLN 45 ML (OCEAN) NAE SCH (21:11)
[2017-07-23] MEDS: MONTELUKAST SOD 10 MG TAB PO SCH (21:12)
[2017-07-23] MEDS: OXYBUTYNIN CHLORIDE 5 MG TAB PO SCH (21:12)
[2017-07-23] MEDS: ROSUVASTATIN CALCIUM 20 MG TAB PO SCH (21:13)
[2017-07-23] MEDS: AMITRIPTYLINE HCL 25 MG TAB PO SCH (21:13)
[2017-07-23] MEDS ORDERED: PNEUMOCOCCAL POLYSACCHARIDES 25 MCG/0.5 ML VIAL/SYR IM. ONE (22:15)
[2017-07-23] MEDS ORDERED: PNEUMOCOCCAL ADMINISTRATION CHARGE ONE (22:15)
[2017-07-23 22:47] VITALS: PULSE 70; O2SAT 95
[2017-07-23 23:52] VITALS: BP 118/61; PULSE 75; TEMP 37.1; O2SAT 93
[2017-07-24] VITALS (7 sets, daily range): BP systolic 97–142; BP diastolic 55–67; PULSE 59–74; TEMP 36.5–36.9; O2SAT 96–100
[2017-07-24] MEDS: INSULIN ASPART 100 UNITS/ML 3 ML PEN SC SCH ×5 (04:06→21:00)
[2017-07-24] MEDS: AZTREONAM IV 500 MG in DEXTROSE 5% 100ML 100 ML IV SCH ×2 (06:27→17:31)
[2017-07-24 07:49] LABS: HEMATOCRIT 41.3 % (37-47); HEMOGLOBIN 14.1 g/dL (12.0-16.0); MEAN CELL VOLUME 88.8 fL (80-100); MEAN CORPUSCULAR HEMOGLOBIN 30.3 pg (25-34); MEAN CORPUSCULAR HGB CONC 34.1 g/dl (32-36); MEAN PLATELET VOLUME 10.7 fL (7.4-10.4); PLATELET COUNT 126 K/uL (130-400); RED CELL DISTRIBUTION WIDTH CV 14.8 % (11.5-14.5); RED CELL DISTRIBUTION WIDTH SD 47.5 fL (36.4-46.3); WHITE BLOOD COUNT 4.25 K/uL (4.8-10.8)
[2017-07-24 08:26] LABS: HEMOGLOBIN A1C 7.1 % (4.5-5.6)
[2017-07-24] MEDS: OXYBUTYNIN CHLORIDE 5 MG TAB PO SCH ×3 (08:49→22:02)
[2017-07-24] MEDS: SODIUM CHLORIDE 0.65% NA SOLN 45 ML (OCEAN) NAE SCH ×2 (08:49→22:01)
[2017-07-24] MEDS: FUROSEMIDE INJ 40 MG in SYRINGE 0 ML IV SCH ×2 (08:49→17:31)
[2017-07-24] MEDS: MULTIVITAMIN TAB PO SCH (08:50)
[2017-07-24] MEDS: SPIRONOLACTONE 100 MG TAB PO SCH (08:50)
[2017-07-24] MEDS: METOCLOPRAMIDE HCL 10 MG TAB PO PRN (08:50)
[2017-07-24] MEDS: NITROGLYCERIN 0.3 MG/1 TAB 100 TAB BTL SL SCH (08:52)
[2017-07-24] MEDS: ASPIRIN 81 MG ECTAB PO SCH (08:52)
[2017-07-24] MEDS: PANTOprazole SOD 40 MG TAB PO SCH (08:53)
[2017-07-24] MEDS: LISINOPRIL 2.5 MG TAB PO SCH (08:53)
[2017-07-24] MEDS: HUMULIN R U SC SCH ×2 (09:01→17:31)
[2017-07-24 09:44] LABS: CALCIUM 8.6 mg/dl (8.5-10.1); CREATININE 0.62 mg/dl (0.60-1.20); POTASSIUM 3.7 mmol/L (3.5-5.1)
--- NOTE | 2017-07-24 10:33 | Cardiology Follow-Up ---
Subjective General Date of Service: Jul 24, 2017. Pt evaluation today including: conversation w/ patient, physical exam, chart review, lab review, review of studies, review of inpatient medication list History of Present Illness The patient is a 62 year old female seen in follow-up. Weight is down approximately 4 kg since admission. Denies chest pain or shortness of breath at rest. No dysrhythmias on telemetry. Edema improved. Tolerated a.m. meal. Offers no complaints this time. Allergies Coded Allergies: Ciprofloxacin (Verified Allergy, Unknown, MOUTH BLISTERS, HIVES, 07/23/17) Morphine (Verified Allergy, Unknown, HIVES, "DEATHLY ILL", THROWS UP, ) Oxycodone (Verified Allergy, Unknown, HIVES, VOMITING, 07/23/17) Penicillin V (Verified Allergy, Unknown, HIVES, 07/23/17) Social History Smoking Status: Never Smoker Hx Tobacco Use In Past Year?: No Hx Alcohol Use - Type And Amou: No Hx Substance Use - Type And Am: No Problem List Medical Problems: (1) Abdominal pain Status: Acute (2) Chest pain Status: Acute (3) CHF exacerbation Status: Acute (4) Influenza Status: Acute (5) Pain of right clavicle Status: Acute (6) Pleural effusion on right Status: Acute (7) Right flank pain Status: Acute (8) UTI (urinary tract infection) Status: Acute Review of Systems Respiratory: + dyspnea on exertion, No cough, No sputum, No wheezing, No shortness of breath, No dyspnea at rest, No hemoptysis Cardiac: + orthopnea, + edema, No chest pain, No PND, No claudication, No palpitations Physical Exam Vital Signs Last Vital Signs Documentation Date Time Temp Pulse Resp B/P (MAP) Pulse Ox O2 Delivery O2 Flow Rate FiO2 07/24/17 07:35 36.6 74 18 115/63 (80) 97 Room Air Physical Exam Constitutional: General Apperance: obese Level of Distress: NAD, chronically ill Head: atraumatic Neck: supple, trachea midline Lungs: Auscultation: no wheezing, no rales/crackles, no rhonchi, decreased breath sounds Cardiovascular: Heart Auscultation: RRR, normal S1, normal S2, II/ ANNETTE Peripheral Pulses: Radial Pulse: normal on the right Abdomen: Bowel Sounds: normal Inspection & Palpation: soft, non-distended, no tenderness, guarding & rebound Extremities: no cyanosis, no clubbing, no ulcers, edema (1+ pretibial) Neurologic: Gait & Station: pertinent finding (no focal motor deficit) Cranial Nerves: grossly intact Assessment and Plan Assessment and Plan FINAL IMPRESSION: 1. Acute on chronic decompensated diastolic heart failure. -improving with IV diuretic therapy 2. Pickwickian syndrome with obstructive sleep apnea on CPAP daily. 3. Hypertension -- controlled. 4. 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 PLAN AND RECOMMENDATIONS: Continue intravenous diuretic therapy, Lasix 40 mg twice daily in addition to Aldactone 100 mg daily orally. Continue to follow daily weight, urine output, electrolytes, and GFR daily. May consider transition from oral Lasix to Bumex at the time of discharge. Other cardiovascular medications will be continued as listed above. Laboratory Results Last 24 Hours Test 07/23/17 11:10 07/23/17 11:40 07/23/17 16:46 07/23/17 16:47 Creatine Kinase MB Ratio White Blood Count 4.51 K/uL Red Blood Count 4.52 M/uL Hemoglobin 13.7 g/dL Hematocrit 40.1 % Mean Corpuscular Volume 88.7 fL Mean Corpuscular Hemoglobin 30.3 pg Mean Corpuscular Hemoglobin Concent 34.2 g/dl Platelet Count 125 K/uL Mean Platelet Volume 10.7 fL Neutrophils (%) (Auto) 42.6 % Lymphocytes (%) (Auto) 42.6 % Monocytes (%) (Auto) 10.6 % Eosinophils (%) (Auto) 3.5 % Basophils (%) (Auto) 0.7 % Neutrophils # (Auto) 1.92 K/uL Lymphocytes # (Auto) 1.92 K/uL Monocytes # (Auto) 0.48 K/uL Eosinophils # (Auto) 0.16 K/uL Basophils # (Auto) 0.03 K/uL RDW Standard Deviation 46.5 fL RDW Coefficient of Variation 14.3 % Immature Granulocyte % (Auto) 0.0 % Immature Granulocyte # (Auto) 0.00 K/uL Urine Color DK YELLOW Urine Appearance CLEAR Urine pH 7.5 Urine Specific Brusly 1.021 Urine Protein NEG Urine Glucose (UA) NEG Urine Ketones NEG Urine Occult Blood NEG Urine Nitrite NEG Urine Bilirubin NEG Urine Urobilinogen NEG Urine Leukocyte Esterase SMALL Urine WBC (Auto) 5-10 /hpf Urine RBC (Auto) 0-4 /hpf Urine Hyaline Casts (Auto) 0 /lpf Urine Epithelial Cells (Auto) >30 /lpf Urine Bacteria (Auto) 1+ Sodium Level 141 mmol/L Potassium Level 4.2 mmol/L Chloride Level 110 mmol/L Carbon Dioxide Level 27 mmol/L Anion Gap 4.0 mmol/L Blood Urea Nitrogen 11 mg/dl Creatinine 0.50 mg/dl Est Creatinine Clear Calc Drug Dose 160.7 ml/min Estimated GFR () 120.2 Estimated GFR (Non- 103.7 BUN/Creatinine Ratio 21.8 Random Glucose 74 mg/dl Calcium Level 8.6 mg/dl Total Bilirubin 0.6 mg/dl Aspartate Amino Transf (AST/SGOT) 55 U/L Alanine Aminotransferase (ALT/SGPT) 45 U/L Alkaline Phosphatase 76 U/L Creatine Kinase MB 3.8 ng/ml Troponin I < 0.015 ng/ml < 0.015 ng/ml Total Protein 7.7 gm/dl Albumin 2.9 gm/dl Globulin 4.8 gm/dl Albumin/Globulin Ratio 0.6 Chemistry Specimen Hemolysis Bedside Glucose 55 mg/dl Test 07/23/17 17:04 07/23/17 17:44 07/23/17 20:17 07/23/17 23:10 Bedside Glucose 87 mg/dl 225 mg/dl Prothrombin Time 11.6 SECONDS Prothromb Time International Ratio 1.1 Activated Partial Thromboplast Time 26.9 SECONDS Partial Thromboplastin Ratio 1.0 Troponin I < 0.015 ng/ml Test 07/23/17 23:54 07/24/17 02:08 07/24/17 03:52 07/24/17 06:39 Bedside Glucose 144 mg/dl 151 mg/dl 181 mg/dl 185 mg/dl Test 07/24/17 07:07 White Blood Count 4.25 K/uL Red Blood Count 4.65 M/uL Hemoglobin 14.1 g/dL Hematocrit 41.3 % Mean Corpuscular Volume 88.8 fL Mean Corpuscular Hemoglobin 30.3 pg Mean Corpuscular Hemoglobin Concent 34.1 g/dl RDW Standard Deviation 47.5 fL RDW Coefficient of Variation 14.8 % Platelet Count 126 K/uL Mean Platelet Volume 10.7 fL Sodium Level 138 mmol/L Potassium Level 3.7 mmol/L Chloride Level 104 mmol/L Carbon Dioxide Level 26 mmol/L Anion Gap 8.0 mmol/L Blood Urea Nitrogen 14 mg/dl Creatinine 0.62 mg/dl Est Creatinine Clear Calc Drug Dose 127.0 ml/min Estimated GFR () 112.0 Estimated GFR (Non- 96.6 BUN/Creatinine Ratio 22.9 Random Glucose 195 mg/dl Estimated Average Glucose 157 mg/dl Hemoglobin A1c 7.1 % Calcium Level 8.6 mg/dl Triglycerides Level 125 mg/dl Cholesterol Level 196 mg/dl HDL Cholesterol 53 mg/dl LDL Cholesterol, Calculated 118 mg/dl VLDL Cholesterol, Calculated 25 mg/dl Cholesterol/HDL Ratio 3.7
--- NOTE | 2017-07-24 14:11 | Pharmacy Progress Note ---
Pharmacy Glycemic Short Note 2 Date of Service Jul 24, 2017. OUTPATIENT ANTIDIABETIC REGIMEN: * U-500 170 units with breakfast and 100 units with dinner ASSESSMENT: * Ms Carbone is a 62 y/o F with a PMH of ROME, GARRETT, Pickwickian syndrome, HR, and hepatic cirrhosis who presents with CHF and a UTI. Yesterday, the patient's blood sugars ranged from 55-255 mg/dL. She received her home dose of U-500 170 units at home but the evening dose was held secondary to blood sugar of 55 mg/ dL. * This morning's fasting blood sugar was 181 mg/dL with lunch being 272 mg/dL. Looking back at previous data, this is typical for the patient whenever the evening dose of U-500 is missed. Will continue with 55 units of U-500 tonight. Continue with correction factor of 20 until tomorrow for full 24 hour evaluation of effectiveness. PLAN FOR INPATIENT GLYCEMIC CONTROL: * Basal insulin * U-500 - 85 units in the morning with breakfast and 55 units in the afternoon with dinner * Bolus insulin * NovoLog per scale ACHS or Q6hrs while NPO * Goal Range: Low 110 mg/dL - High 140 mg/dL * Correction Factor: 20 mg/dL/unit * Nutritional / Prandial insulin per carb ratio of 1 unit per -- grams CHO consumed PLAN FOR DISCHARGE: * HbA1C indicates excellent control as an outpatient. Can continue the same regimen if patient does not suffer from low blood sugar.
--- NOTE | 2017-07-24 15:16 | Progress Note ---
Internal Med Progress Note Date of Service: Jul 24, 2017. Provider Documentation: SUBJECTIVE: Seen and examined at bedside feels sleepy today as not been able to sleep well yesterday Denies any chest pain, SOB, dizziness Reports mild LLQ abdominal soreness No other complaints OBJECTIVE: Vital Signs-as noted below General Appearance:Obese, no apparent distress Head: normocephalic, Atraumatic Eyes: normal inspection, EOMI, PERRL Neck: supple, Trachea midline Respiratory/Chest: Decreased breath sounds, CTA Cardiovascular: S1, S2, No murmur Abdomen/GI:Soft, mild LLQ and left flank tender, Bowel sounds present Extremities/Musculoskelatal:normal inspection, B/L LE 2+ edema Neurologic/Psych:AAOX3, grossly no focal neurological deficits Skin:normal color,warm Lab data as noted below. ASSESSMENT & PLAN: Acute on Chronic Diastolic Failure: Patient presented with increased LE edema and weight gain over past couple months. CXR: IMPRESSION: Cardiomegaly with components of congestive failure. 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 Patient to be seen by Interventional radiology Dr Rosa Garcia as outpatient Dysuria: Empirically continue on Azactam for possible UTI Urine culture:pending Cirrhosis 2/2 nonalcoholic steatohepatitis: Continue Spironolactone HTN: stable continue lisinopril GARRETT, Pickwickian Syndrome: CPAP HS per home settings DM II: HA1C 7.4 on 07/10/17. pt on Humulin U-500 glycemic consult to assist in management COPD No signs of exacerbation Nebs PRN Dyslipidemia: continue statin GERD/Gastroparesis continue PPI, Reglan prn ANXIETY continue Ativan prn DVT Px: Lovenox SQ Code Status: Full Code Disposition: Follows with Dr Hart for routine care PROCEDURES: ECHO: * Ejection Fraction = 65-70%. * There is mild concentric left ventricular hypertrophy. * The left atrium is moderately dilated. * Diastolic dysfunction, Grade II (pseudonormalization pattern). * No significant valvular pathology. Vital Signs: Date Time Temp Pulse Resp B/P (MAP) Pulse Ox O2 Delivery O2 Flow Rate FiO2 07/24/17 11:47 36.6 63 18 106/67 (80) 97 Room Air 07/24/17 07:35 36.6 74 18 115/63 (80) 97 Room Air 07/24/17 04:00 Room Air 07/24/17 03:54 36.5 65 18 97/60 (72) 96 Room Air 07/23/17 23:59 CPAP 07/23/17 23:52 37.1 75 20 118/61 (80) 93 CPAP 07/23/17 22:47 70 95 07/23/17 19:41 36.8 68 20 121/70 (87) 98 Room Air 07/23/17 19:15 Room Air 07/23/17 17:11 36.7 73 19 138/74 100 Room Air Lab Results: Results Past 24 Hours Test 07/23/17 16:46 07/23/17 16:47 07/23/17 17:04 07/23/17 17:44 Range/Units Bedside Glucose 55 87 70-90 mg/dl Troponin I < 0.015 0-0.045 ng/ml Prothrombin Time 11.6 9.0-12.0 SECONDS Prothromb Time International Ratio 1.1 0.9-1.1 Activated Partial Thromboplast Time 26.9 21.0-31.0 SECONDS Partial Thromboplastin Ratio 1.0 Test 07/23/17 20:17 07/23/17 23:10 07/23/17 23:54 07/24/17 02:08 Range/Units Bedside Glucose 225 144 151 70-90 mg/dl Troponin I < 0.015 0-0.045 ng/ml Test 07/24/17 03:52 07/24/17 06:39 07/24/17 07:07 07/24/17 10:54 Range/Units Bedside Glucose 181 185 272 70-90 mg/dl White Blood Count 4.25 4.8-10.8 K/uL Red Blood Count 4.65 4.2-5.4 M/uL Hemoglobin 14.1 12.0-16.0 g/dL Hematocrit 41.3 37-47 % Mean Corpuscular Volume 88.8 80-100 fL Mean Corpuscular Hemoglobin 30.3 25-34 pg Mean Corpuscular Hemoglobin Concent 34.1 32-36 g/dl RDW Standard Deviation 47.5 36.4-46.3 fL RDW Coefficient of Variation 14.8 11.5-14.5 % Platelet Count 126 130-400 K/uL Mean Platelet Volume 10.7 7.4-10.4 fL Sodium Level 138 136-145 mmol/L Potassium Level 3.7 3.5-5.1 mmol/L Chloride Level 104 98-107 mmol/L Carbon Dioxide Level 26 21-32 mmol/L Anion Gap 8.0 3-11 mmol/L Blood Urea Nitrogen 14 7-18 mg/dl Creatinine 0.62 0.60-1.20 mg/dl Est Creatinine Clear Calc Drug Dose 127.0 ml/min Estimated GFR () 112.0 Estimated GFR (Non- 96.6 BUN/Creatinine Ratio 22.9 10-20 Random Glucose 195 70-99 mg/dl Estimated Average Glucose 157 mg/dl Hemoglobin A1c 7.1 4.5-5.6 % Calcium Level 8.6 8.5-10.1 mg/dl Triglycerides Level 125 0-150 mg/dl Cholesterol Level 196 0-200 mg/dl HDL Cholesterol 53 mg/dl LDL Cholesterol, Calculated 118 mg/dl VLDL Cholesterol, Calculated 25 mg/dl Cholesterol/HDL Ratio 3.7
[2017-07-24] MEDS: ENOXAPARIN 40 MG/0.4 ML SYR SC SCH (17:32)
[2017-07-24] MEDS: ROSUVASTATIN CALCIUM 20 MG TAB PO SCH (22:01)
[2017-07-24] MEDS: AMITRIPTYLINE HCL 25 MG TAB PO SCH (22:02)
[2017-07-24] MEDS: MONTELUKAST SOD 10 MG TAB PO SCH (22:02)
[2017-07-25 00:07] VITALS: BP 123/68; PULSE 77; TEMP 36.6; O2SAT 95
[2017-07-25 03:38] VITALS: BP 116/70; PULSE 76; TEMP 36.6; O2SAT 95
[2017-07-25] MEDS: AZTREONAM IV 500 MG in DEXTROSE 5% 100ML 100 ML IV SCH (05:59)
[2017-07-25] MEDS: INSULIN ASPART 100 UNITS/ML 3 ML PEN SC SCH ×4 (07:00→20:34)
[2017-07-25 07:39] LABS: CALCIUM 8.8 mg/dl (8.5-10.1); CREATININE 0.69 mg/dl (0.60-1.20); POTASSIUM 3.9 mmol/L (3.5-5.1)
[2017-07-25] MEDS: HUMULIN R U SC SCH ×2 (07:50→17:20)
[2017-07-25] MEDS: OXYBUTYNIN CHLORIDE 5 MG TAB PO SCH ×3 (07:53→21:56)
[2017-07-25] MEDS: MULTIVITAMIN TAB PO SCH (07:53)
[2017-07-25] MEDS: PANTOprazole SOD 40 MG TAB PO SCH (07:53)
[2017-07-25] MEDS: METOCLOPRAMIDE HCL 10 MG TAB PO PRN (07:53)
[2017-07-25] MEDS: SPIRONOLACTONE 100 MG TAB PO SCH (07:53)
[2017-07-25] MEDS: LISINOPRIL 2.5 MG TAB PO SCH (07:53)
[2017-07-25] MEDS: NITROGLYCERIN 0.3 MG/1 TAB 100 TAB BTL SL SCH (07:54)
[2017-07-25] MEDS: ASPIRIN 81 MG ECTAB PO SCH (07:54)
[2017-07-25 08:03] VITALS: PULSE 73; TEMP 36.6; O2SAT 100
[2017-07-25] MEDS: FUROSEMIDE INJ 40 MG in SYRINGE 0 ML IV SCH (08:05)
[2017-07-25] MEDS: SODIUM CHLORIDE 0.65% NA SOLN 45 ML (OCEAN) NAE SCH ×2 (08:08→21:55)
--- NOTE | 2017-07-25 11:10 | Cardiology Follow-Up ---
Subjective General Date of Service: Jul 25, 2017. Pt evaluation today including: conversation w/ patient, physical exam, chart review, lab review, review of studies, review of inpatient medication list History of Present Illness The patient is a 62 year old female seen in follow-up. Denies chest discomfort. Feeling fatigued today. Lower extremity edema unchanged. Tolerating CPAP at night. Mild decline in urine output over the past 24 hours. No new complaints today. No dysrhythmias on telemetry. Allergies Coded Allergies: Ciprofloxacin (Verified Allergy, Unknown, MOUTH BLISTERS, HIVES, 07/23/17) Morphine (Verified Allergy, Unknown, HIVES, "DEATHLY ILL", THROWS UP, ) Oxycodone (Verified Allergy, Unknown, HIVES, VOMITING, 07/23/17) Penicillin V (Verified Allergy, Unknown, HIVES, 07/23/17) Social History Smoking Status: Never Smoker Hx Tobacco Use In Past Year?: No Hx Alcohol Use - Type And Amou: No Hx Substance Use - Type And Am: No Problem List Medical Problems: (1) Abdominal pain Status: Acute (2) Chest pain Status: Acute (3) CHF exacerbation Status: Acute (4) Influenza Status: Acute (5) Pain of right clavicle Status: Acute (6) Pleural effusion on right Status: Acute (7) Right flank pain Status: Acute (8) UTI (urinary tract infection) Status: Acute Review of Systems Respiratory: + dyspnea on exertion, No cough, No wheezing, No shortness of breath, No dyspnea at rest, No hemoptysis Cardiac: + edema, No chest pain, No orthopnea, No PND, No claudication, No palpitations Physical Exam Vital Signs Last Vital Signs Documentation Date Time Temp Pulse Resp B/P (MAP) Pulse Ox O2 Delivery O2 Flow Rate FiO2 07/25/17 08:03 36.6 73 16 100 07/25/17 04:00 Room Air Physical Exam Constitutional: General Apperance: obese Level of Distress: NAD, chronically ill Head: atraumatic Neck: supple, trachea midline Lungs: Auscultation: no wheezing, no rales/crackles, no rhonchi, decreased breath sounds Cardiovascular: Heart Auscultation: RRR, normal S1, normal S2, II/ ANNETTE Peripheral Pulses: Radial Pulse: normal on the right Abdomen: Bowel Sounds: normal Inspection & Palpation: soft, non-distended, no tenderness, guarding & rebound Extremities: no cyanosis, no clubbing, no ulcers, edema (1+ pretibial) Neurologic: Gait & Station: pertinent finding (no focal motor deficit) Cranial Nerves: grossly intact Assessment and Plan Assessment and Plan FINAL IMPRESSION: 1. Acute on chronic decompensated diastolic heart failure. -improving with IV diuretic therapy, however, mild decline in urine output noted over the past 24 hours 2. Pickwickian syndrome with obstructive sleep apnea on CPAP daily. 3. Hypertension -- controlled. 4. 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 PLAN AND RECOMMENDATIONS: Increase Lasix to 80 mg twice daily. Continue Aldactone 100 mg daily. Continue to follow daily weight, urine output, electrolytes, and GFR daily. Fluid restriction : 1800cc daily. Other cardiovascular medications will be continued as listed above. Laboratory Results Last 24 Hours Test 07/24/17 16:28 07/24/17 20:33 07/25/17 06:32 07/25/17 06:54 Bedside Glucose 131 mg/dl 126 mg/dl 111 mg/dl Sodium Level 138 mmol/L Potassium Level 3.9 mmol/L Chloride Level 102 mmol/L Carbon Dioxide Level 31 mmol/L Anion Gap 5.0 mmol/L Blood Urea Nitrogen 18 mg/dl Creatinine 0.69 mg/dl Est Creatinine Clear Calc Drug Dose 114.2 ml/min Estimated GFR () 108.1 Estimated GFR (Non- 93.3 BUN/Creatinine Ratio 25.5 Random Glucose 133 mg/dl Calcium Level 8.8 mg/dl Magnesium Level 2.0 mg/dl
[2017-07-25 12:01] VITALS: BP 99/50; PULSE 66; TEMP 36.6; O2SAT 97
--- NOTE | 2017-07-25 12:33 | Progress Note ---
Internal Med Progress Note Date of Service: Jul 25, 2017. Provider Documentation: SUBJECTIVE: Seen and examined at bedside More alert today Denies any chest pain, SOB, dizziness Reports LLQ abdominal soreness is better No other complaints OBJECTIVE: Vital Signs-as noted below General Appearance:Obese, no apparent distress Head: normocephalic, Atraumatic Eyes: normal inspection, EOMI, PERRL Neck: supple, Trachea midline Respiratory/Chest: Decreased breath sounds, CTA Cardiovascular: S1, S2, No murmur Abdomen/GI:Soft, mild LLQ and left flank tender, Bowel sounds present Extremities/Musculoskelatal:normal inspection, B/L LE 2+ edema Neurologic/Psych:AAOX3, grossly no focal neurological deficits Skin:normal color,warm Lab data as noted below. ASSESSMENT & PLAN: Acute on Chronic Diastolic Failure: Patient presented with increased LE edema and weight gain over past couple months. CXR: IMPRESSION: Cardiomegaly with components of congestive failure. 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 Patient to be seen by Interventional radiology Dr Rosa Garcia as outpatient Dysuria: Resolved DC Azactam Urine culture:Normal jeffy Cirrhosis 2/2 nonalcoholic steatohepatitis: Continue Spironolactone HTN: stable continue lisinopril GARRETT, Pickwickian Syndrome: CPAP HS per home settings DM II: HA1C 7.4 on 07/10/17. pt on Humulin U-500 glycemic consult to assist in management COPD No signs of exacerbation Nebs PRN Dyslipidemia: continue statin GERD/Gastroparesis continue PPI, Reglan prn ANXIETY continue Ativan prn DVT Px: Lovenox SQ Code Status: Full Code Disposition: Follows with Dr Hart for routine care PROCEDURES: ECHO: * Ejection Fraction = 65-70%. * There is mild concentric left ventricular hypertrophy. * The left atrium is moderately dilated. * Diastolic dysfunction, Grade II (pseudonormalization pattern). * No significant valvular pathology. Vital Signs: Date Time Temp Pulse Resp B/P (MAP) Pulse Ox O2 Delivery O2 Flow Rate FiO2 07/25/17 12:01 36.6 66 16 99/50 (66) 97 07/25/17 08:03 36.6 73 16 100 07/25/17 04:00 Room Air 07/25/17 03:38 36.6 76 16 116/70 (85) 95 07/25/17 00:07 36.6 77 18 123/68 (86) 95 07/25/17 00:00 Room Air 07/24/17 23:27 71 97 07/24/17 20:00 Room Air 07/24/17 19:26 36.9 69 18 142/55 (84) 97 Room Air 07/24/17 16:00 Room Air 07/24/17 15:37 36.7 59 18 108/64 (79) 100 Room Air Lab Results: Results Past 24 Hours Test 07/24/17 16:28 07/24/17 20:33 07/25/17 06:32 07/25/17 06:54 Range/Units Bedside Glucose 131 126 111 70-90 mg/dl Sodium Level 138 136-145 mmol/L Potassium Level 3.9 3.5-5.1 mmol/L Chloride Level 102 98-107 mmol/L Carbon Dioxide Level 31 21-32 mmol/L Anion Gap 5.0 3-11 mmol/L Blood Urea Nitrogen 18 7-18 mg/dl Creatinine 0.69 0.60-1.20 mg/dl Est Creatinine Clear Calc Drug Dose 114.2 ml/min Estimated GFR () 108.1 Estimated GFR (Non- 93.3 BUN/Creatinine Ratio 25.5 10-20 Random Glucose 133 70-99 mg/dl Calcium Level 8.8 8.5-10.1 mg/dl Magnesium Level 2.0 1.8-2.4 mg/dl
[2017-07-25 15:20] VITALS: BP 99/63; PULSE 71; TEMP 36.6; O2SAT 97
[2017-07-25] MEDS: ENOXAPARIN 40 MG/0.4 ML SYR SC SCH (18:43)
[2017-07-25] MEDS: FUROSEMIDE INJ 80 MG in SYRINGE 0 ML IV SCH (18:43)
[2017-07-25 19:39] VITALS: BP 121/70; PULSE 75; TEMP 36.7; O2SAT 96
[2017-07-25] MEDS: ACETAMINOPHEN 325 MG TAB PO PRN (21:56)
[2017-07-25] MEDS: AMITRIPTYLINE HCL 25 MG TAB PO SCH (21:57)
[2017-07-25] MEDS: ROSUVASTATIN CALCIUM 20 MG TAB PO SCH (21:57)
[2017-07-25] MEDS: MONTELUKAST SOD 10 MG TAB PO SCH (21:58)
[2017-07-26] VITALS (8 sets, daily range): BP systolic 103–138; BP diastolic 58–70; PULSE 63–79; TEMP 36.6–37; O2SAT 94–100
[2017-07-26] MEDS: ACETAMINOPHEN 325 MG TAB PO PRN (03:23)
[2017-07-26 06:36] LABS: CREATININE 0.78 mg/dl (0.60-1.20)
[2017-07-26] MEDS ORDERED: HUMULIN R U SC SCH (07:30)
[2017-07-26] MEDS: INSULIN ASPART 100 UNITS/ML 3 ML PEN SC SCH ×4 (08:43→20:37)
[2017-07-26] MEDS: FUROSEMIDE INJ 80 MG in SYRINGE 0 ML IV SCH ×2 (08:44→19:12)
[2017-07-26] MEDS: PANTOprazole SOD 40 MG TAB PO SCH (08:46)
[2017-07-26] MEDS: LISINOPRIL 2.5 MG TAB PO SCH (08:46)
[2017-07-26] MEDS: MULTIVITAMIN TAB PO SCH (08:46)
[2017-07-26] MEDS: SPIRONOLACTONE 100 MG TAB PO SCH (08:46)
[2017-07-26] MEDS: ASPIRIN 81 MG ECTAB PO SCH (08:46)
[2017-07-26] MEDS: OXYBUTYNIN CHLORIDE 5 MG TAB PO SCH ×3 (08:46→20:30)
[2017-07-26] MEDS: SODIUM CHLORIDE 0.65% NA SOLN 45 ML (OCEAN) NAE SCH ×2 (08:47→20:30)
[2017-07-26] MEDS: NITROGLYCERIN 0.3 MG/1 TAB 100 TAB BTL SL SCH (08:47)
--- NOTE | 2017-07-26 09:56 | Cardiology Follow-Up ---
Subjective General Date of Service: Jul 26, 2017. Pt evaluation today including: conversation w/ patient, physical exam, chart review, lab review, review of studies, review of inpatient medication list History of Present Illness The patient is a 62 year old female seen in follow-up. Urine output improved with titration of Lasix. Her weight is down approximately 5 kg since admission. Reports dark colored urine. Voices concern regarding possible urinary tract infection. No orthopnea, however, sleeps upright with CPAP. Fatigue unchanged. Denies chest discomfort or palpitations. No dysrhythmias on telemetry. Allergies Coded Allergies: Ciprofloxacin (Verified Allergy, Unknown, MOUTH BLISTERS, HIVES, 07/23/17) Morphine (Verified Allergy, Unknown, HIVES, "DEATHLY ILL", THROWS UP, ) Oxycodone (Verified Allergy, Unknown, HIVES, VOMITING, 07/23/17) Penicillin V (Verified Allergy, Unknown, HIVES, 07/23/17) Social History Smoking Status: Never Smoker Hx Tobacco Use In Past Year?: No Hx Alcohol Use - Type And Amou: No Hx Substance Use - Type And Am: No Problem List Medical Problems: (1) Abdominal pain Status: Acute (2) Chest pain Status: Acute (3) CHF exacerbation Status: Acute (4) Influenza Status: Acute (5) Pain of right clavicle Status: Acute (6) Pleural effusion on right Status: Acute (7) Right flank pain Status: Acute (8) UTI (urinary tract infection) Status: Acute Review of Systems Respiratory: + dyspnea on exertion, No cough, No sputum, No wheezing, No shortness of breath, No dyspnea at rest, No hemoptysis Cardiac: + edema, No chest pain, No orthopnea, No PND, No claudication, No palpitations Physical Exam Vital Signs Last Vital Signs Documentation Date Time Temp Pulse Resp B/P (MAP) Pulse Ox O2 Delivery O2 Flow Rate FiO2 07/26/17 08:05 36.7 68 16 114/58 (76) 100 07/26/17 04:00 Room Air Physical Exam Constitutional: General Apperance: obese Level of Distress: NAD, chronically ill Head: atraumatic Neck: supple, trachea midline Lungs: Auscultation: no wheezing, no rales/crackles, no rhonchi, decreased breath sounds Cardiovascular: Heart Auscultation: RRR, normal S1, normal S2, II/ ANNETTE Peripheral Pulses: Radial Pulse: normal on the right Abdomen: Bowel Sounds: normal Inspection & Palpation: soft, non-distended, no tenderness, guarding & rebound Extremities: no cyanosis, no clubbing, no ulcers, edema (1+ pretibial) Neurologic: Gait & Station: pertinent finding (no focal motor deficit) Cranial Nerves: grossly intact Assessment and Plan Assessment and Plan FINAL IMPRESSION: 1. Acute on chronic decompensated diastolic heart failure. -Urine output improved with titration of Lasix 2. Pickwickian syndrome with obstructive sleep apnea on CPAP daily. 3. Hypertension -- controlled. 4. Dysuria 5. 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 PLAN AND RECOMMENDATIONS: UA C and S Continue Lasix 80 mg IV twice daily. Continue Aldactone 100 mg daily. Follow daily weight, urine output, electrolytes, and GFR daily. Fluid restriction : 1800cc daily. Other cardiovascular medications will be continued as listed above. Laboratory Results Last 24 Hours Test 07/25/17 11:21 07/25/17 16:26 07/25/17 20:14 07/26/17 05:34 Bedside Glucose 222 mg/dl 93 mg/dl 105 mg/dl Sodium Level 138 mmol/L Potassium Level 4.0 mmol/L Chloride Level 102 mmol/L Carbon Dioxide Level 34 mmol/L Anion Gap 2.0 mmol/L Blood Urea Nitrogen 21 mg/dl Creatinine 0.78 mg/dl Est Creatinine Clear Calc Drug Dose 100.4 ml/min Estimated GFR () 94.4 Estimated GFR (Non- 81.5 BUN/Creatinine Ratio 27.5 Random Glucose 130 mg/dl Calcium Level 9.0 mg/dl Magnesium Level 2.1 mg/dl Test 07/26/17 06:45 Bedside Glucose 145 mg/dl
--- NOTE | 2017-07-26 10:31 | Pharmacy Progress Note ---
Glycemic Control Progress Note Date of Service Jul 26, 2017. Scope Glycemic Pharmacist consulted for glycemic control to write orders per [facility] inpatient glycemic control protocol. Objective Accuchecks BSG (last 24hrs): Test 07/25/17 11:21 07/25/17 16:26 07/25/17 20:14 07/26/17 05:34 Bedside Glucose 222 mg/dl (70-90) 93 mg/dl (70-90) 105 mg/dl (70-90) Random Glucose 130 mg/dl (70-99) Test 07/26/17 06:45 Bedside Glucose 145 mg/dl (70-90) HbA1c: Test 07/24/17 07:07 Hemoglobin A1c 7.1 % (4.5-5.6) H Recent Pertinent Medications The patient is currently receiving: * Basal insulin: Humulin U-500 85 units with breakfast and 55 units with dinner * Correctional Insulin: Novolog Correction per scale ACHS Goal Range: Low 110 mg/dL - High 140 mg/dL Correction Factor: 20 mg/dL/unit * Prandial insulin: Per carb ratio of 1 unit per -- grams CHO consumed Outpatient Anti-Diabetic Meds U-500 170 units in the morning and 100 units with dinner Assessment & Plan ASSESSMENT: * See progress note from 07/24/17 for more background info, in short: * Pt receiving SQ basal bolus insulin regimen for hyperglycemia secondary to baseline DM (outpatient regimen on hold),infection (UTI on Azactam) * Patient is currently receiving an average of 150 units of insulin per day * 140 units of U-500 * 5 units of correctional insulin * BSGs ranging 93 - 222 mg/dl over the past 24hrs * Changes needed to insulin regimen: * AM Fasting BSG = 145 mg/dl. This is slightly above goal range for patient based on inpatient targets and co-morbidities- increase PM dose by 5 units. Since the patient's blood sugar increased to 222 mg/dL at lunch, will increase morning U-500 dose to 95 units. (total of 10% increase in dose today) * Post-prandial BSGs are in range therefore no changes needed to CF. * Total daily dose = ~155 units. Increased U-500 as appropriate. PLAN FOR INPATIENT GLYCEMIC CONTROL: * Increasing U-500 to 95 units SQ in the morning and 60 units units SQ in the evening * Continuing correction factor of 20 mg/dl/unit * Continuing goal range of Low 110 mg/dL - High 140 mg/dL RECOMMENDATIONS FOR DISCHARGE: * HbA1C is well-controlled can continue home regimen. Thank you.
--- NOTE | 2017-07-26 11:45 | Progress Note ---
Internal Med Progress Note Date of Service: Jul 26, 2017. Provider Documentation: SUBJECTIVE: Seen and examined at bedside Feels better today Denies any chest pain, SOB, dizziness Reports LLQ abdominal soreness but better No other complaints Diuresing well OBJECTIVE: Vital Signs-as noted below General Appearance:Obese, no apparent distress Head: normocephalic, Atraumatic Eyes: normal inspection, EOMI, PERRL Neck: supple, Trachea midline Respiratory/Chest: Decreased breath sounds, CTA Cardiovascular: S1, S2, No murmur Abdomen/GI:Soft, mild LLQ and left flank tender, Bowel sounds present Extremities/Musculoskelatal:normal inspection, B/L LE 2+ edema Neurologic/Psych:AAOX3, grossly no focal neurological deficits Skin:normal color,warm Lab data as noted below. ASSESSMENT & PLAN: Acute on Chronic Diastolic Failure: Patient presented with increased LE edema and weight gain over past couple months. CXR: IMPRESSION: Cardiomegaly with components of congestive failure. 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 pt on Humulin U-500 glycemic consult to assist in management COPD No signs of exacerbation Nebs PRN Dyslipidemia: continue statin GERD/Gastroparesis continue PPI, Reglan prn ANXIETY continue Ativan prn DVT Px: Lovenox SQ Code Status: Full Code Disposition: Follows with Dr Hart for routine care PROCEDURES: ECHO: * Ejection Fraction = 65-70%. * There is mild concentric left ventricular hypertrophy. * The left atrium is moderately dilated. * Diastolic dysfunction, Grade II (pseudonormalization pattern). * No significant valvular pathology. Vital Signs: Date Time Temp Pulse Resp B/P (MAP) Pulse Ox O2 Delivery O2 Flow Rate FiO2 07/26/17 08:05 36.7 68 16 114/58 (76) 100 07/26/17 08:00 Room Air 07/26/17 04:00 Room Air 07/26/17 03:21 36.9 79 18 113/69 (84) 94 07/26/17 02:29 70 96 07/26/17 00:27 37.0 71 18 114/62 (79) 94 07/26/17 00:00 Room Air 07/25/17 20:00 Room Air 07/25/17 19:39 36.7 75 20 121/70 (87) 96 Room Air 07/25/17 16:00 Room Air 07/25/17 15:20 36.6 71 20 99/63 (75) 97 Room Air 07/25/17 12:01 36.6 66 16 99/50 (66) 97 07/25/17 12:00 Room Air Lab Results: Results Past 24 Hours Test 07/25/17 16:26 07/25/17 20:14 07/26/17 05:34 07/26/17 06:45 Range/Units Bedside Glucose 93 105 145 70-90 mg/dl Sodium Level 138 136-145 mmol/L Potassium Level 4.0 3.5-5.1 mmol/L Chloride Level 102 98-107 mmol/L Carbon Dioxide Level 34 21-32 mmol/L Anion Gap 2.0 3-11 mmol/L Blood Urea Nitrogen 21 7-18 mg/dl Creatinine 0.78 0.60-1.20 mg/dl Est Creatinine Clear Calc Drug Dose 100.4 ml/min Estimated GFR () 94.4 Estimated GFR (Non- 81.5 BUN/Creatinine Ratio 27.5 10-20 Random Glucose 130 70-99 mg/dl Calcium Level 9.0 8.5-10.1 mg/dl Magnesium Level 2.1 1.8-2.4 mg/dl Test 07/26/17 11:36 Range/Units Bedside Glucose 190 70-90 mg/dl
[2017-07-26] MEDS: HUMULIN R U SC SCH (16:47)
[2017-07-26] MEDS: ENOXAPARIN 40 MG/0.4 ML SYR SC SCH (19:12)
[2017-07-26] MEDS: ROSUVASTATIN CALCIUM 20 MG TAB PO SCH (20:30)
[2017-07-26] MEDS: AMITRIPTYLINE HCL 25 MG TAB PO SCH (20:30)
[2017-07-26] MEDS: MONTELUKAST SOD 10 MG TAB PO SCH (20:30)
[2017-07-27] VITALS (10 sets, daily range): BP systolic 96–116; BP diastolic 58–70; PULSE 16–78; TEMP 36.4–37.2; O2SAT 6–99
[2017-07-27] MEDS: ACETAMINOPHEN 325 MG TAB PO PRN (03:13)
[2017-07-27] MEDS: INSULIN ASPART 100 UNITS/ML 3 ML PEN SC SCH ×4 (07:00→20:49)
[2017-07-27 07:25] LABS: HEMATOCRIT 43.8 % (37-47); HEMOGLOBIN 14.8 g/dL (12.0-16.0); MEAN CELL VOLUME 88.5 fL (80-100); MEAN CORPUSCULAR HEMOGLOBIN 29.9 pg (25-34); MEAN CORPUSCULAR HGB CONC 33.8 g/dl (32-36); MEAN PLATELET VOLUME 10.1 fL (7.4-10.4); PLATELET COUNT 129 K/uL (130-400); RED CELL DISTRIBUTION WIDTH CV 14.4 % (11.5-14.5); RED CELL DISTRIBUTION WIDTH SD 46.5 fL (36.4-46.3); WHITE BLOOD COUNT 4.61 K/uL (4.8-10.8)
[2017-07-27] MEDS ORDERED: HUMULIN-R U-500 100 UNITS in SYRINGE 0 ML SC SCH (07:30)
[2017-07-27 07:53] LABS: CREATININE 0.68 mg/dl (0.60-1.20); POTASSIUM 3.9 mmol/L (3.5-5.1)
[2017-07-27] MEDS: SODIUM CHLORIDE 0.65% NA SOLN 45 ML (OCEAN) NAE SCH ×2 (08:44→20:49)
[2017-07-27] MEDS: FUROSEMIDE INJ 80 MG in SYRINGE 0 ML IV SCH ×2 (08:44→17:51)
[2017-07-27] MEDS: SPIRONOLACTONE 100 MG TAB PO SCH (08:47)
[2017-07-27] MEDS: MULTIVITAMIN TAB PO SCH (08:48)
[2017-07-27] MEDS: OXYBUTYNIN CHLORIDE 5 MG TAB PO SCH ×3 (08:48→20:49)
[2017-07-27] MEDS: ASPIRIN 81 MG ECTAB PO SCH (08:48)
[2017-07-27] MEDS: LISINOPRIL 2.5 MG TAB PO SCH (08:49)
[2017-07-27] MEDS: PANTOprazole SOD 40 MG TAB PO SCH (08:49)
[2017-07-27] MEDS: NITROGLYCERIN 0.3 MG/1 TAB 100 TAB BTL SL SCH (08:49)
--- NOTE | 2017-07-27 09:28 | Pharmacy Progress Note ---
Pharmacy Glycemic Short Note 2 Date of Service Jul 27, 2017. OUTPATIENT ANTIDIABETIC REGIMEN: * Concentrated insulin: Humulin (Regular) insulin U-500 * 170 units with breakfast and 100 units with dinner ASSESSMENT: * Pharmacy continues to titrate outpatient dosing of concentrated U-500 insulin daily based on BSG trends * Pt has been receiving less than outpatient dosing - most likely d/t differences in PO intake from outpatient to inpatient with controlled CHO intake. * Pt has received 162 units of insulin over the past 24hrs * 155 units of U-500 Regular insulin * 7 units of correctional insulin with NovoLog * This morning's fasting blood sugar is in goal range at 112 mg/dL * PM dosing of U-500 regular insulin is adequate * BSGs trending upwards throughout the day yesterday at 190, 204. Correctional insulin was needed. * Will increase AM dosing of U-500 regular insulin PLAN FOR INPATIENT GLYCEMIC CONTROL: * Basal insulin * Concentrated Regular U-500 insulin * 100 units SQ in the morning with breakfast and 60 units SQ in the evening with dinner * Bolus insulin * NovoLog per scale ACHS or Q6hrs while NPO * Goal Range: Low 110 mg/dL - High 140 mg/dL * Correction Factor: 20 mg/dL/unit * Nutritional / Prandial insulin per carb ratio of 1 unit per -- grams CHO consumed PLAN FOR DISCHARGE: * HbA1C indicates excellent control as an outpatient. Can continue the current outpatient regimen at discharge provided patient is not having hypoglycemia
--- NOTE | 2017-07-27 11:04 | Progress Note ---
Internal Med Progress Note Date of Service: Jul 27, 2017. Provider Documentation: SUBJECTIVE: Seen and examined at bedside Doing well Denies chest pain, SOB, dizziness LLQ abdominal pain much improved No other complaints Diuresing well on IV lasix OBJECTIVE: Vital Signs-as noted below General Appearance:Obese, no apparent distress Head: normocephalic, Atraumatic Eyes: normal inspection, EOMI, PERRL Neck: supple, Trachea midline Respiratory/Chest: Decreased breath sounds, CTA Cardiovascular: S1, S2, No murmur Abdomen/GI:Soft, mild LLQ and left flank tender, Bowel sounds present Extremities/Musculoskelatal:normal inspection, B/L LE 2+ edema Neurologic/Psych:AAOX3, grossly no focal neurological deficits Skin:normal color,warm Lab data as noted below. ASSESSMENT & PLAN: Acute on Chronic Diastolic Failure: Patient presented with increased LE edema and weight gain over past couple months. CXR: IMPRESSION: Cardiomegaly with components of congestive failure. 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 pt on Humulin U-500 glycemic consult to assist in management COPD No signs of exacerbation Nebs PRN Dyslipidemia: continue statin GERD/Gastroparesis continue PPI, Reglan prn ANXIETY continue Ativan prn DVT Px: Lovenox SQ Code Status: Full Code Disposition: Follows with Dr Hart for routine care PROCEDURES: ECHO: * Ejection Fraction = 65-70%. * There is mild concentric left ventricular hypertrophy. * The left atrium is moderately dilated. * Diastolic dysfunction, Grade II (pseudonormalization pattern). * No significant valvular pathology. Vital Signs: Date Time Temp Pulse Resp B/P (MAP) Pulse Ox O2 Delivery O2 Flow Rate FiO2 07/27/17 08:00 97 Room Air 07/27/17 07:36 36.6 72 16 106/58 (74) 99 Room Air 07/27/17 04:05 Room Air 07/27/17 03:31 37.2 78 16 111/69 (83) 6 Room Air 16 07/27/17 00:07 36.9 77 16 101/62 (75) 95 07/27/17 00:05 Room Air 07/26/17 22:22 72 97 07/26/17 20:38 36.9 71 20 129/65 (86) 97 Room Air 07/26/17 20:00 Room Air 07/26/17 16:09 36.6 63 20 103/66 (78) 98 Room Air 07/26/17 16:00 Room Air 07/26/17 12:41 36.7 18 138/70 (92) 97 Room Air 07/26/17 12:00 Room Air Lab Results: Results Past 24 Hours Test 07/26/17 11:36 07/26/17 11:50 07/26/17 16:11 07/26/17 20:37 Range/Units Bedside Glucose 190 204 126 70-90 mg/dl Urine Color YELLOW Urine Appearance CLEAR CLEAR Urine pH 7.5 4.5-7.5 Urine Specific [place] 1.010 1.000-1.030 Urine Protein NEG NEG Urine Glucose (UA) NEG NEG Urine Ketones NEG NEG Urine Occult Blood NEG NEG Urine Nitrite NEG NEG Urine Bilirubin NEG NEG Urine Urobilinogen NEG NEG Urine Leukocyte Esterase NEG NEG Urine WBC (Auto) 1-5 0-5 /hpf Urine RBC (Auto) 0-4 0-4 /hpf Urine Hyaline Casts (Auto) 0 0-5 /lpf Urine Epithelial Cells (Auto) 5-10 0-5 /lpf Urine Bacteria (Auto) NEG NEG Test 07/27/17 06:49 07/27/17 07:14 Range/Units Bedside Glucose 112 70-90 mg/dl White Blood Count 4.61 4.8-10.8 K/uL Red Blood Count 4.95 4.2-5.4 M/uL Hemoglobin 14.8 12.0-16.0 g/dL Hematocrit 43.8 37-47 % Mean Corpuscular Volume 88.5 80-100 fL Mean Corpuscular Hemoglobin 29.9 25-34 pg Mean Corpuscular Hemoglobin Concent 33.8 32-36 g/dl RDW Standard Deviation 46.5 36.4-46.3 fL RDW Coefficient of Variation 14.4 11.5-14.5 % Platelet Count 129 130-400 K/uL Mean Platelet Volume 10.1 7.4-10.4 fL Sodium Level 138 136-145 mmol/L Potassium Level 3.9 3.5-5.1 mmol/L Chloride Level 100 98-107 mmol/L Carbon Dioxide Level 31 21-32 mmol/L Anion Gap 6.0 3-11 mmol/L Blood Urea Nitrogen 23 7-18 mg/dl Creatinine 0.68 0.60-1.20 mg/dl Est Creatinine Clear Calc Drug Dose 115.6 ml/min Estimated GFR () 108.7 Estimated GFR (Non- 93.7 BUN/Creatinine Ratio 34.0 10-20 Random Glucose 112 70-99 mg/dl Calcium Level 9.0 8.5-10.1 mg/dl Magnesium Level 2.0 1.8-2.4 mg/dl
--- NOTE | 2017-07-27 11:11 | PROGRESS NOTE ---
DATE: 07/27/2017 The patient was seen and examined. Chart, medications and telemetry were reviewed. SUBJECTIVE: The patient feels improved since admission. Continues to manifest diuresis and preserved renal function. Notes no chest pains. Notes no dizziness. Still has some intermittent left flank pain. Notes no unexplained fevers or infections. Leg edema has improved. She is now able to ambulate to a better degree since admission. OBJECTIVE: VITAL SIGNS: Heart rate is 72, blood pressure is 106/58, and O2 saturation is 99% on room air. NECK: Thick. There is no distinct jugular venous distention. LUNGS: Reveal clear airfields. CARDIOVASCULAR: Regular. There is no S3 gallop. ABDOMEN: Soft and nontender with large panniculus. EXTREMITIES: There is no cyanosis or clubbing. There is 2/3 pulse in the lower extremity edema, improved from initial evaluation. LABORATORY DATA: White cell count is 4.6, hemoglobin is 14.8, and platelet counts are 129,000. Sodium is 138, potassium is 3.9, chloride is 100, bicarbonate is 31, BUN is 23, and creatinine is 0.68. IMPRESSION: A 62-year-old female with Pickwickian hypoventilation syndrome and chronic right heart failure, admitted with decompensated right heart/diastolic heart failure with greater than 25-pound weight gain. She is manifesting good diuresis with renal tolerance. We will continue current dosing. Continue monitoring on telemetry. Ultimate goal is further weight loss and edema reduction. MTDD
[2017-07-27] MEDS: HUMULIN R U SC SCH (17:50)
[2017-07-27] MEDS: ENOXAPARIN 40 MG/0.4 ML SYR SC SCH (17:52)
[2017-07-27] MEDS: AMITRIPTYLINE HCL 25 MG TAB PO SCH (20:49)
[2017-07-27] MEDS: MONTELUKAST SOD 10 MG TAB PO SCH (20:49)
[2017-07-27] MEDS: ROSUVASTATIN CALCIUM 20 MG TAB PO SCH (20:49)
[2017-07-28] VITALS (8 sets, daily range): BP systolic 102–122; BP diastolic 63–71; PULSE 65–77; TEMP 36.4–36.9; O2SAT 94–99
[2017-07-28] MEDS: INSULIN ASPART 100 UNITS/ML 3 ML PEN SC SCH ×4 (07:00→20:44)
[2017-07-28] MEDS ORDERED: HUMULIN R U SC SCH (07:30)
[2017-07-28] MEDS: SPIRONOLACTONE 100 MG TAB PO SCH (07:43)
[2017-07-28] MEDS: PANTOprazole SOD 40 MG TAB PO SCH (07:43)
[2017-07-28] MEDS: MULTIVITAMIN TAB PO SCH (07:44)
[2017-07-28] MEDS: ASPIRIN 81 MG ECTAB PO SCH (07:44)
[2017-07-28] MEDS: OXYBUTYNIN CHLORIDE 5 MG TAB PO SCH ×3 (07:44→20:45)
[2017-07-28] MEDS: NITROGLYCERIN 0.3 MG/1 TAB 100 TAB BTL SL SCH (07:45)
[2017-07-28] MEDS: LISINOPRIL 2.5 MG TAB PO SCH (07:45)
[2017-07-28] MEDS: SODIUM CHLORIDE 0.65% NA SOLN 45 ML (OCEAN) NAE SCH ×2 (07:46→20:44)
[2017-07-28] MEDS: FUROSEMIDE INJ 80 MG in SYRINGE 0 ML IV SCH ×2 (07:51→19:48)
[2017-07-28 09:33] LABS: CALCIUM 9.2 mg/dl (8.5-10.1); CREATININE 0.69 mg/dl (0.60-1.20); POTASSIUM 3.9 mmol/L (3.5-5.1)
--- NOTE | 2017-07-28 09:54 | Pharmacy Progress Note ---
Pharmacy Glycemic Short Note 2 Date of Service Jul 28, 2017. OUTPATIENT ANTIDIABETIC REGIMEN: * Concentrated insulin: Humulin (Regular) insulin U-500 * 170 units with breakfast and 100 units with dinner ASSESSMENT: * Pharmacy continues to titrate outpatient dosing of concentrated U-500 insulin daily based on BSG trends * Pt has been receiving less than outpatient dosing - most likely d/t differences in PO intake from outpatient to inpatient with controlled CHO intake. * Pt has received 165 units of insulin over the past 24hrs * 160 units of U-500 Regular insulin * 5 units of correctional insulin with NovoLog * This morning's fasting blood sugar is in goal range at 131 mg/dL * PM dosing of U-500 regular insulin is adequate * BSGs trending upwards throughout the day yesterday at 205, 146 Correctional insulin was needed. * Will increase AM dosing of U-500 regular insulin PLAN FOR INPATIENT GLYCEMIC CONTROL: * Basal insulin * Concentrated Regular U-500 insulin * 105 units SQ in the morning with breakfast and 60 units SQ in the evening with dinner * Bolus insulin * NovoLog per scale ACHS or Q6hrs while NPO * Goal Range: Low 110 mg/dL - High 140 mg/dL * Correction Factor: 20 mg/dL/unit * Nutritional / Prandial insulin per carb ratio of 1 unit per -- grams CHO consumed PLAN FOR DISCHARGE: * HbA1C indicates excellent control as an outpatient. Can continue the current outpatient regimen at discharge provided patient is not having hypoglycemia
--- NOTE | 2017-07-28 10:11 | CARDIOLOGY PROGRESS NOTE ---
DATE: 07/28/2017 The patient seen and examined. Chart, medications, and telemetry reviewed. SUBJECTIVE: The patient feels improved once again and continues to manifest gradual diuresis. Lower extremity edema has improved. Legs are much less heavy. She still has some very minimal left lower quadrant flank pain. Notes no fevers, chills or productive cough. OBJECTIVE: VITAL SIGNS: Heart rate is 69, blood pressure is 122/66, O2 saturations 95% on room air. NECK: Thin. There is no jugular venous distention. LUNGS: Clear. CARDIOVASCULAR: Regular. ABDOMEN: Soft with large panniculus. EXTREMITIES: Without cyanosis or clubbing. There is improved lower extremity edema. LABORATORY DATA: Weight is down 4 kilograms. Electrolytes revealed sodium of 138, potassium 3.9, chloride 102, bicarbonate 29, BUN 22, creatinine 0.69. IMPRESSION: A 62-year-old female with decompensated right heart failure, diastolic dysfunction, now clinically improving with continued IV diuresis. We will manifest IV diuretics for at least till later today holding a.m. dosing pending her results of lab work and her examination. Ultimately, we will convert to oral regimen and begin moving towards outpatient management. The patient has demonstrated clinical improvement. MTDD
--- NOTE | 2017-07-28 16:31 | Progress Note ---
Internal Med Progress Note Date of Service: Jul 28, 2017. Provider Documentation: SUBJECTIVE: continue to feel much better , no complain of SOB , no DIXON lower ext edema improved markedly OBJECTIVE: Vital Signs-as noted below Exam: General-no sign of distress , comfortable Eyes-sclera non icteric , PERRLA/EOMI ENT-moist oral mucosa Neck-no thyromegaly , trachea midline Lungs-diminished, no rales or wheeze noted Heart-regular S1/S2 Abdomen-soft, non tender Extremities-trace bilateral lower ext edema Neuro-AAO x3, no focal neurological deficit Lab data as noted below. ASSESSMENT & PLAN: Acute on Chronic Diastolic Failure: Patient presented with increased LE edema and weight gain over past couple months. CXR: IMPRESSION: Cardiomegaly with components of congestive failure. ECHO: * Ejection Fraction = 65-70%. * There is mild concentric left ventricular hypertrophy. * The left atrium is moderately dilated. * Diastolic dysfunction, Grade II (pseudonormalization pattern). * No significant valvular pathology. 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 pt on Humulin U-500 glycemic consult to assist in management COPD No signs of exacerbation Nebs PRN Dyslipidemia: continue statin GERD/Gastroparesis continue PPI, Reglan prn ANXIETY continue Ativan prn DVT Px: Lovenox SQ Code Status: Full Code Disposition: expected to be discharged home in next 1-2 days will benefit with home health visiting nurse used [facility] health nursing in past Follows with Dr Hart for routine care Vital Signs: Date Time Temp Pulse Resp B/P (MAP) Pulse Ox O2 Delivery O2 Flow Rate FiO2 07/29/17 07:39 36.7 73 18 112/65 (81) 98 Room Air 07/29/17 04:00 Room Air 07/29/17 03:38 36.5 75 19 116/67 (83) 97 Room Air 07/29/17 00:01 Room Air 07/28/17 23:45 36.6 71 19 102/64 (77) 95 CPAP 07/28/17 22:41 65 95 07/28/17 20:00 Room Air 07/28/17 19:32 36.9 74 22 114/63 (80) 99 Room Air 07/28/17 16:00 Room Air 07/28/17 15:37 36.4 71 22 118/71 (87) 97 Room Air 07/28/17 12:00 Room Air 07/28/17 11:34 36.6 75 18 117/71 (86) 94 Room Air Lab Results: Results Past 24 Hours Test 07/28/17 11:21 07/28/17 16:12 07/28/17 20:00 07/29/17 06:42 Range/Units Bedside Glucose 244 108 175 159 70-90 mg/dl Test 07/29/17 07:40 07/29/17 09:03 Range/Units White Blood Count 4.59 4.8-10.8 K/uL Red Blood Count 4.91 4.2-5.4 M/uL Hemoglobin 14.8 12.0-16.0 g/dL Hematocrit 43.4 37-47 % Mean Corpuscular Volume 88.4 80-100 fL Mean Corpuscular Hemoglobin 30.1 25-34 pg Mean Corpuscular Hemoglobin Concent 34.1 32-36 g/dl RDW Standard Deviation 46.8 36.4-46.3 fL RDW Coefficient of Variation 14.3 11.5-14.5 % Platelet Count 128 130-400 K/uL Mean Platelet Volume 10.2 7.4-10.4 fL Creatinine 0.76 0.60-1.20 mg/dl Est Creatinine Clear Calc Drug Dose 101.8 ml/min Estimated GFR () 97.4 Estimated GFR (Non- 84.1
[2017-07-28] MEDS: HUMULIN R U SC SCH (16:42)
[2017-07-28] MEDS: ENOXAPARIN 40 MG/0.4 ML SYR SC SCH (18:58)
[2017-07-28] MEDS: AMITRIPTYLINE HCL 25 MG TAB PO SCH (20:44)
[2017-07-28] MEDS: MONTELUKAST SOD 10 MG TAB PO SCH (20:44)
[2017-07-28] MEDS: ROSUVASTATIN CALCIUM 20 MG TAB PO SCH (20:45)
[2017-07-29] MEDS: ACETAMINOPHEN 325 MG TAB PO PRN (02:22)
[2017-07-29 03:38] VITALS: BP_SYST 116; BP_SYST 158; BP_DIAS 67; BP_DIAS 72; PULSE 75; TEMP 36.5; O2SAT 92; O2SAT 97
[2017-07-29] MEDS ORDERED: HUMULIN R U SC SCH (07:30)
[2017-07-29 07:39] VITALS: BP 112/65; PULSE 73; TEMP 36.7; O2SAT 98
[2017-07-29 08:01] LABS: HEMATOCRIT 43.4 % (37-47); HEMOGLOBIN 14.8 g/dL (12.0-16.0); MEAN CELL VOLUME 88.4 fL (80-100); MEAN CORPUSCULAR HEMOGLOBIN 30.1 pg (25-34); MEAN CORPUSCULAR HGB CONC 34.1 g/dl (32-36); MEAN PLATELET VOLUME 10.2 fL (7.4-10.4); PLATELET COUNT 128 K/uL (130-400); RED CELL DISTRIBUTION WIDTH CV 14.3 % (11.5-14.5); RED CELL DISTRIBUTION WIDTH SD 46.8 fL (36.4-46.3); WHITE BLOOD COUNT 4.59 K/uL (4.8-10.8)
[2017-07-29 08:29] LABS: CREATININE 0.76 mg/dl (0.60-1.20)
[2017-07-29] MEDS: ASPIRIN 81 MG ECTAB PO SCH (08:51)
[2017-07-29] MEDS: SODIUM CHLORIDE 0.65% NA SOLN 45 ML (OCEAN) NAE SCH (08:51)
[2017-07-29] MEDS: MULTIVITAMIN TAB PO SCH (08:51)
[2017-07-29] MEDS: METOCLOPRAMIDE HCL 10 MG TAB PO PRN (08:51)
[2017-07-29] MEDS: OXYBUTYNIN CHLORIDE 5 MG TAB PO SCH ×2 (08:51→12:03)
[2017-07-29] MEDS: SPIRONOLACTONE 100 MG TAB PO SCH (08:52)
[2017-07-29] MEDS: PANTOprazole SOD 40 MG TAB PO SCH (08:52)
[2017-07-29] MEDS: LISINOPRIL 2.5 MG TAB PO SCH (08:52)
[2017-07-29] MEDS: NITROGLYCERIN 0.3 MG/1 TAB 100 TAB BTL SL SCH (08:53)
[2017-07-29] MEDS: INSULIN ASPART 100 UNITS/ML 3 ML PEN SC SCH ×2 (08:56→12:06)
[2017-07-29] MEDS ORDERED: FUROSEMIDE INJ 80 MG in SYRINGE 0 ML IV ONE (09:15)
[2017-07-29] MEDS ORDERED: LSX80 PO (09:40)
--- NOTE | 2017-07-29 09:41 | Discharge Instructions ---
Discharge Instructions Date of Service Jul 29, 2017. Admission Reason for Admission: Chf Exacerbation Discharge Discharge Diagnosis / Problem: ACUTE ON CHRONIC DIASTOLIC HEART FAILURE Discharge Goals Goal(s): Improve function, Increase independence, Improve disease control, Diagnostic testing, Therapeutic intervention Activity Recommendations Activity Limitations: resume your previous activity . Instructions / Follow-Up Instructions / Follow-Up HOSPITAL FOLLOW UP : 08/05/2017 10:20 AM Keyon Ayers MD Internal Medicine [facility] CARDIOLOGY FOLLOW UP WITH DR SEAMAN IN 3-4 WEEKS , OFFICE WILL CALL WITH APPOINTMENT Call your Primary Care doctor if any of the following symptoms or problems start or get worse: * Shortness of breath or difficulty breathing * Wake up at night short of breath * Chest pain * Cough * Swelling of your hands, feet, or legs * More fatigued or tired with your normal activity * Palpitations - sudden fast heart beats WEIGHT * Weigh yourself every morning after using the bathroom. * Use the same scale. * Wear the same amount of clothing. * Write your weight down on a chart. * Call your Primary Care doctor if you gain more than 2-3 pounds in 1-2 days. MEDICATIONS * Use this discharge instruction sheet for medication instructions. * Take your medications at the time your doctor ordered. * Do not skip a dose of your medicines. * If you miss a dose of medicine, take it as soon as possible, but DO NOT DOUBLE A DOSE. * Read your medicine information when you get home. * Know all of the side effects of your medicine. If in doubt, ask your pharmacist * Call your Primary Care doctor's office if you have any side effects. * Be sure all of your doctors know what medicine and herbs you take (including cold, flu, and herbal medicine). Take the following with you to your follow-up doctor appointments: * Weight Chart * Medication List * List of questions Do not drink excessive alcohol, beer or wine. Current Hospital Diet Patient's current hospital diet: Diabetes Type 2 Diet, AHA Diet (Heart Healthy) Discharge Diet Recommended Diet: AHA Diet (Heart Healthy), Diabetes Type 2 Diet Fluid Restriction: 1800 ml (7 cups) Pending Studies Studies pending at discharge: no Laboratory Results Hemoglobin A1c Test 07/24/17 07:07 Range/Units Estimated Average Glucose 157 mg/dl Hemoglobin A1c 7.1 H 4.5-5.6 % Lipid Panel Test 07/24/17 07:07 Range/Units Triglycerides Level 125 0-150 mg/dl Cholesterol Level 196 0-200 mg/dl HDL Cholesterol 53 mg/dl Cholesterol/HDL Ratio 3.7 LDL Cholesterol, Calculated 118 mg/dl Medical Emergencies . Who to Call and When: Call 911 or go to the Emergency Room if: * If at any time you feel your situation is an emergency * You have tightness or pain in your chest that does not go away with rest or Nitroglycerin * You are very short of breath even with rest . Non-Emergent Contact Non-Emergency issues call your: Primary Care Provider . . "Provider Documentation" section prepared by Jolanta Seals. . VTE Core Measure Inpt VTE Proph given/why not?: Enoxaparin (Lovenox)SQ
[2017-07-29 10:09] LABS: CALCIUM 9.1 mg/dl (8.5-10.1); CREATININE 0.78 mg/dl (0.60-1.20)
--- NOTE | 2017-07-29 11:12 | PROGRESS NOTE ---
DATE: 07/29/2017 The patient seen and examined. Chart, medications, telemetry reviewed. SUBJECTIVE: The patient once again feels gradually improved from day prior, had brisk diuresis yesterday of 3 liters. Notes edema has improved. Abdominal distention is less. She is ambulatory in the hallway this morning without assistance. Telemetry reveals no arrhythmias. OBJECTIVE: VITAL SIGNS: Heart rate is 73, blood pressure is 112/65. HEENT: Normocephalic and atraumatic. NECK: There is no jugular venous distention at 30 degrees. LUNGS: Clear with mildly diminished breath sounds diffusely. CARDIOVASCULAR: Regular. There is no S3 gallop. ABDOMEN: Soft with large panniculus and slightly less distended. There remains very mild left flank pain. EXTREMITIES: Without cyanosis or clubbing. There is diminished 2+ peripheral edema significantly improved from initial presentation. LABORATORY STUDIES: Sodium is 138, potassium is 4.0, chloride is 100, bicarbonate is 32, BUN is 23, creatinine 0.78, glucose is 157. White cell count is 4.5, hemoglobin is 14.8, hematocrit is 43.9, platelet count 128. IMPRESSION: A 62-year-old female with issues as follows: Acute on chronic right heart failure/diastolic heart failure with preserved left ventricular systolic function secondary to morbid obesity, pickwickian syndrome and hypoventilation. The patient has responded to IV, now oral diuretics, though remains with mild volume overload chronically. RECOMMENDATIONS: The patient will be discharged on increased dose of furosemide at 80 mg twice per day. Consideration may be made for a post-hospital discharge with the addition of metolazone. All other medications will be continued as prescribed other than sublingual nitroglycerin. CHF instructions discussed in detail with the patient. She has daily weight monitoring performed at home. She anticipates follow up with primary care physician in 1 week's time and cardiology in the next 3-4 weeks' time. 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 Followup with GI will be recommended.
[2017-07-29 11:19] VITALS: BP 116/67; PULSE 69; TEMP 36.7; O2SAT 96
[2017-07-29 14:59] VITALS: BP 116/67; PULSE 69; TEMP 36.7; O2SAT 96
[2017-07-29] MEDS ORDERED: BISACODYL 5 MG TABEC PO ONE (15:00)
[2017-07-29] MEDS ORDERED: DOCUSATE SODIUM 100 MG CAP PO SCH (15:00)
--- NOTE | 2017-07-29 15:55 | Discharge Summary ---
Discharge Summary Date of Service Jul 29, 2017. Discharge Summary Admission Date: Jul 23, 2017 at 13:50 Discharge Date: Jul 29, 2017 Discharge Disposition: Home with services Principal Diagnosis: ACUTE ON CHRONIC DIASTOLIC HEART FAILURE Procedures: ECHO: * Ejection Fraction = 65-70%. * There is mild concentric left ventricular hypertrophy. * The left atrium is moderately dilated. * Diastolic dysfunction, Grade II (pseudonormalization pattern). * No significant valvular pathology. Consultations: [facility] DR GISELE PEREZ Medication Reconciliation New Medications: Furosemide (Furosemide) 80 Mg Tab 80 MG PO BID for 30 Days, #60 TAB 3 Refills Continued Medications: Albuterol Sulfate (Proair Respiclick) 108 Mcg/Act Aer 2 PUFFS INH Q4H PRN for Chest Pain/Cough or SOB Amitriptyline HCl (Amitriptyline HCl) 25 Mg Tab 25 MG PO HS Aspirin (Aspirin Ec) 81 Mg Tab 81 MG PO QAM Insulin Regular (Human) (Humulin R U-500 (Concentr) 500 Unit/Ml Inj 100 UNITS SC DINNER 30 MIN BEFORE SUPPER Insulin Regular (Human) (Humulin R U-500 Kwikpen) 500 Unit/Ml Deepti 170 UNITS SC QAM ADMINISTER THIS MEDICATION 30 MINUTES BEFORE BREAKFAST Lisinopril (Lisinopril) 2.5 Mg Tab 2.5 MG PO QAM Lorazepam (Lorazepam) 0.5 Mg Tab 0.5-1 MG PO TID PRN for Anxiety Metoclopramide (Reglan) 10 Mg Tab 10 MG PO ACHS PRN for GI Upset Montelukast Sod (Montelukast Sodium) 10 Mg Tab 10 MG PO HS Multivitamin (Multivitamin) Tab 1 TAB PO QAM Nitroglycerin (Nitrostat) 0.3 Mg/1 Tab Subl 1 TAB SL DAILY for esophageal spasm Omeprazole (Prilosec) 20 Mg Cap 20 MG PO QAM TAKE THIS MEDICATION ONCE DAILY ONE HOUR BEFORE FIRST MEAL OF THE DAY Oxybutynin Chloride (Ditropan) 5 Mg Tab 1 TAB PO TID Polyethylene Glycol 3350 (Miralax) 1 Pow Pow 17 GM PO DAILY PRN for Constipation Rosuvastatin Calcium (Rosuvastatin Calcium) 40 Mg Tab 40 MG PO HS Saline (Saline Nasal [place]) 0.65 % Spr 2 SPRAYS SONALI BID for Nasal Congestion Spironolactone (Aldactone) 100 Mg Tab 100 MG PO DAILY Tramadol (Ultram) 50 Mg Tab 100 MG PO Q6H PRN for Pain Discontinued Medications: Furosemide (Lasix) 40 Mg Tab 40 MG PO BID TAKE AN ADDITIONAL 1-2 TABLETS PER DAY INSTRUCTED Admission Information HPI (per Admitting provider): Pt is 62 y/o F with PMH GARRETT, insulin dependent diabetes, pickwickian syndrome, chronic R heart and diastolic HF, chronic hepatitic cirrhosis 2/2 nonalcoholic steatohepatitis presented to ER with c/o increased dyspnea on exertion. Pt follows with Dr Perez. She reports over past couple of months changes with her diuretics without significant improvement and saw Dr Perez yesterday recommend admission. She reports past month with increased dyspnea on exertion with a few steps, orthopnea - sleeping in recliner and increased LE edema. Reports 25# weight gain since January. Pt states was getting epistaxis daily and was on Flonase. That was stopped and now using saline nasal spray, still with intermittent epistaxis, none today and doesn't think any yesterday. Pt c/o dysuria past 2 weeks. Denies hematuria or urinary frequency or urgency or retention. Pt with hx LLQ, L flank abdominal pain x 3 months. Denies worsening. followed out pt and had CT abd/pelvis with IV contrast on 07/17/17: "Impression : Increasing size of mesorneal varices with decreasing portal vein caliber compatible with portal systemic shunt. Recommend non-emergent interventional radiology consult.". Pt is to be getting appt with Dr Rosa Garcia. Reports blood sugars range from 80s-200's. Denies fever/chills, diaphoresis, N/V /D/C, MEANS, dizziness, syncope, vision changes, neck pain, CP, palpitations, cough , sore throat, choking, otalgia, rhinorrhea, extremity erythema, rashes. Hx echo: 02/02: EF: 65-70%. In ER pt afebrile, P: 81, BP: 158/87, R:20, O2:99% on RA. No leukocytosis. CXR: cardiomegaly with CHF, EKG: NSR, rate 72. Given 80mg lasix IV in ER. Pt denied farley. Physical Exam (per Admitting): General Appearance: no apparent distress, + obese Head: normocephalic, atraumatic Eyes: normal inspection, PERRL, EOMI, sclerae normal ENT: hearing grossly normal, pharynx normal, + pertinent finding (mucous membranes moist. bilateral nares with scabs, no epistaxis) Neck: supple, trachea midline Respiratory/Chest: chest non-tender, no respiratory distress, no accessory muscle use, + decreased breath sounds (throughout) Cardiovascular: regular rate, rhythm, no murmur Abdomen/GI: normal bowel sounds, soft, + pertinent finding (distended secondary to adipose tissue, +tenderness to palpation LLQ and L flank, difficult to assess for masses secondary to adipose tissue) Back: no CVA tenderness Extremities/Musculoskelatal: no calf tenderness, normal capillary refill, non-tender, + pedal edema (1-2+bilaterally) Neurologic/Psych: alert, normal mood/affect, oriented x 3 Skin: normal color, warm/dry, + pertinent finding (+several scabs to right posterior shoulder) Hospital Course no complain of SOB or DIXON, able to walk independently in hallway with out any assistance arrangements made for home health visiting nurse Lasix changed to PO 80mg twice daily evaluated by Cardiology earlier , stable to be discharged home Date Time Temp Pulse Resp B/P (MAP) Pulse Ox O2 Delivery O2 Flow Rate FiO2 07/29/17 14:59 36.7 69 18 96 Room Air 07/29/17 12:00 Room Air Exam: General-no sign of distress , comfortable Eyes-sclera non icteric , PERRLA/EOMI ENT-moist oral mucosa Neck-no thyromegaly , trachea midline Lungs-diminished, no rales or wheeze noted Heart-regular S1/S2 Abdomen-soft, non tender Extremities-trace bilateral lower ext edema Neuro-AAO x3, no focal neurological deficit Acute on Chronic Diastolic Failure: compensated vol status improved to baseline after aggressive diuresis Patient presented with increased LE edema and weight gain over past couple months. CXR: IMPRESSION: Cardiomegaly with components of congestive failure. ECHO: * Ejection Fraction = 65-70%. * There is mild concentric left ventricular hypertrophy. * The left atrium is moderately dilated. * Diastolic dysfunction, Grade II (pseudonormalization pattern). * No significant valvular pathology. pt is continued with aggressive diuresis on Lasix 80 mg IV BID , spironolactone wt loss of approx ~12 lb since admission Appreciate Cardiology Input Lasix changed to 80 mg PO BID ( was on 40 mg PO BID with extra 1-2 tablets to be taken as needed for increased wt gain) sable to be discharged home CHF discharge instruction given , recommendation for monitoring daily wt , physician follow up updated LLQ Abdominal and Left Flank Pain: Reports pain has been since 2-[address]:showed increasing size of mesorneal varices with decreasing portal vein caliber compatible with portal systemic shunt. Patient to be seen by Interventional radiology Dr Rosa Garcia as outpatient last CT abdomen /pelvis shows possible Cirrhosis of Liver associated with splenomegaly pt will need continued out pt follow up with GI Dysuria: no further urinary symptoms Urine culture:Normal jeffy Discontinued Azactam Repeat UA: normal Cirrhosis 2/2 nonalcoholic steatohepatitis: liver function stable Continue Spironolactone HTN: stable continue lisinopril on Aldactone , Lasix GARRETT, Pickwickian Syndrome: CPAP HS per home settings DM II: HA1C 7.4 on 07/10/17. pt on Humulin U-500 glycemic consult to assist in management COPD No signs of exacerbation Nebs PRN Dyslipidemia: continue statin GERD/Gastroparesis continue PPI, Reglan prn ANXIETY continue Ativan prn DVT Px: Lovenox SQ Code Status: Full Code Disposition: Stable to be discharged home today home health visiting nurse with [facility] follow up with Dr Ayers at [facility] Cardiology follow up with Dr Gisele Perez in 3-4 weeks Total time spent on discharge = 40 MINS This includes examination of the patient, discharge planning, medication reconciliation, and communication with other providers. Discharge Instructions Discharge Instructions Date of Service Jul 29, 2017. Admission Reason for Admission: Chf Exacerbation Discharge Discharge Diagnosis / Problem: ACUTE ON CHRONIC DIASTOLIC HEART FAILURE Discharge Goals Goal(s): Improve function, Increase independence, Improve disease control, Diagnostic testing, Therapeutic intervention Activity Recommendations Activity Limitations: resume your previous activity . Instructions / Follow-Up Instructions / Follow-Up HOSPITAL FOLLOW UP : 08/05/2017 10:20 AM Keyon Ayers MD Internal Medicine [facility] CARDIOLOGY FOLLOW UP WITH DR PEREZ IN 3-4 WEEKS , OFFICE WILL CALL WITH APPOINTMENT Call your Primary Care doctor if any of the following symptoms or problems start or get worse: * Shortness of breath or difficulty breathing * Wake up at night short of breath * Chest pain * Cough * Swelling of your hands, feet, or legs * More fatigued or tired with your normal activity * Palpitations - sudden fast heart beats WEIGHT * Weigh yourself every morning after using the bathroom. * Use the same scale. * Wear the same amount of clothing. * Write your weight down on a chart. * Call your Primary Care doctor if you gain more than 2-3 pounds in 1-2 days. MEDICATIONS * Use this discharge instruction sheet for medication instructions. * Take your medications at the time your doctor ordered. * Do not skip a dose of your medicines. * If you miss a dose of medicine, take it as soon as possible, but DO NOT DOUBLE A DOSE. * Read your medicine information when you get home. * Know all of the side effects of your medicine. If in doubt, ask your pharmacist * Call your Primary Care doctor's office if you have any side effects. * Be sure all of your doctors know what medicine and herbs you take (including cold, flu, and herbal medicine). Take the following with you to your follow-up doctor appointments: * Weight Chart * Medication List * List of questions Do not drink excessive alcohol, beer or wine. Current Hospital Diet Patient's current hospital diet: Diabetes Type 2 Diet, AHA Diet (Heart Healthy) Discharge Diet Recommended Diet: AHA Diet (Heart Healthy), Diabetes Type 2 Diet Fluid Restriction: 1800 ml (7 cups) Pending Studies Studies pending at discharge: no Laboratory Results Hemoglobin A1c Test 07/24/17 07:07 Range/Units Estimated Average Glucose 157 mg/dl Hemoglobin A1c 7.1 H 4.5-5.6 % Lipid Panel Test 07/24/17 07:07 Range/Units Triglycerides Level 125 0-150 mg/dl Cholesterol Level 196 0-200 mg/dl HDL Cholesterol 53 mg/dl Cholesterol/HDL Ratio 3.7 LDL Cholesterol, Calculated 118 mg/dl Medical Emergencies . Who to Call and When: Call 911 or go to the Emergency Room if: * If at any time you feel your situation is an emergency * You have tightness or pain in your chest that does not go away with rest or Nitroglycerin * You are very short of breath even with rest . Non-Emergent Contact Non-Emergency issues call your: Primary Care Provider . . "Provider Documentation" section prepared by Jolanta H. Arnel. . VTE Core Measure Inpt VTE Proph given/why not?: Enoxaparin (Lovenox)SQ Additional Copies To Gisele Perez M.D. Maxin, Charles W., M.D.
[2017-07-29] MEDS ORDERED: FUROSEMIDE 80 MG TAB PO SCH (17:00)
== END 2017-07-29 16:15 | disposition home or self-care (01) | DRG 292 ==
LOC: C.EDB 09:53 → C.2T 13:50 → ENRESERV 14:29
PROVIDERS: ADMIT Internal Medicine; ATTEND Hospitalist
DX: I50.33 Acute on chronic diastolic (congestive) heart failure (principal); E66.2 Morbid (severe) obesity with alveolar hypoventilation; Z68.42 Body mass index [BMI] 45.0-49.9, adult; N39.0 Urinary tract infection, site not specified; I13.0 Hypertensive heart and chronic kidney disease with heart failure and stage 1 through stage 4 chronic kidney disease, or unspecified chronic kidney disease; Z83.3 Family history of diabetes mellitus; Z82.49 Family history of ischemic heart disease and other diseases of the circulatory system; Z79.82 Long term (current) use of aspirin; Z79.4 Long term (current) use of insulin; G47.33 Obstructive sleep apnea (adult) (pediatric); J44.9 Chronic obstructive pulmonary disease, unspecified; E78.5 Hyperlipidemia, unspecified; K21.9 Gastro-esophageal reflux disease without esophagitis; E11.43 Type 2 diabetes mellitus with diabetic autonomic (poly)neuropathy; F41.9 Anxiety disorder, unspecified; K74.60 Unspecified cirrhosis of liver; K75.81 Nonalcoholic steatohepatitis (NASH)

== ENCOUNTER → 2017-09-29 | Day surgery (SDC) | payer OTHER ==
[2017-09-22 09:59] VITALS: Ht 165.1 cm; Wt 125.5 kg
[~2017-09-29] VITALS: Ht 165.1 cm; Wt 125.5 kg
[~2017-09-29] MED LIST changes: -CRANCAP4 PO; -DOXY1TAB6 PO; -EMPA1TAB PO; -FLNIN/ NAE; -FRS/80 PO; +FURO80TA63 PO; +KETAMINE HCL INJ 50 MG/ML 10 ML VIAL ONE; +LIDOCAINE HCL 2% 2 ML VIAL (20MG/ML) ONE; +METO-157 PO; +METO2.5T PO; +MIDAZOLAM HCL 1 MG/ML 2ML VIAL ONE; -NTRGSL/4 UT; +ONDANSETRON INJ 2 MG/ML 2 ML VIAL IV PRN; -PHEN-1043 PO; +PROPOFOL IV EMULSION 10 MG/ML 20 ML VIAL IV ONE; +SALI1SPR3 NAE; -SERT-234 PO; +SPIR100T PO; -SPRN100 PO; -SUCR1TAB29 PO; +[UNRECOGNIZED DRUG - CODE] SL
--- NOTE | 2017-09-29 08:31 | Endo History and Physical ---
History & Physical Date of Service: Sep 29, 2017. Chief Complaint: Difficulty swallowing Referring Physician: History of Present Illness Patient referred for upper endoscopy to evaluate a history of difficulty swallowing. Symptoms have been ongoing 6-9 months. She describes having daily difficulty with swallowing breads, meats and sometimes liquids. She does have a history of obesity and a recent diagnosis of cirrhosis after liver biopsy. Past Medical History Diabetes, Anxiety, Reflux, Cancer, High Cholesterol, Sleep Apnea, Hypertension, Other, Depression Past Surgical History Hx Cardiac Surgery: Yes (heart cath) Hx Internal Defibrillator: No Hx Pacemaker: No Hx Abdominal Surgery: Yes (appendectomy, cholecysectomy, VA-BSO, C SECTIONX2, ) Hx of Implantable Prosthesis: No Hx Post-Op Nausea and Vomiting: No Hx Cancer Surgery: Yes (skin ca removed) Hx Thoracic Surgery: No Hx Orthopedic: No Hx Urinary Tract Surgery: No (BLADDER TAC X 3) Family History None Social History Smoking Status: Never Smoker Hx Substance Use: No Hx Alcohol Use: No Allergies Coded Allergies: Ciprofloxacin (Verified Allergy, Unknown, MOUTH BLISTERS, HIVES, 09/29/17) Morphine (Verified Allergy, Unknown, HIVES, "DEATHLY ILL", THROWS UP, 09/29) Oxycodone (Verified Allergy, Unknown, HIVES, VOMITING, 09/29/17) Penicillin V (Verified Allergy, Unknown, HIVES, 09/29/17) Current Medications Reported Home Medications Medications Dose Route/Sig Max Daily Dose Days Date Category Dose Instructions Zaroxolyn (Metolazone) 2.5 Mg Tab 2.5 Mg PO M,TH PRIOR TO LASIX 09/22/17 Reported Lasix (Furosemide) 80 Mg Tab 80 Mg PO BID 09/22/17 Reported Saline Nasal [place] (Saline) 0.65 % Spr 2 Sprays SONALI BID 07/23/17 Reported Nitrostat (Nitroglycerin) 0.3 Mg/1 Tab Subl 1 Tab SL DAILY 07/23/17 Reported Reglan (Metoclopramide HCl) 10 Mg Tab 10 Mg PO ACHS PRN 07/23/17 Reported Aldactone (Spironolactone) 100 Mg Tab 100 Mg PO DAILY 07/23/17 Reported Ditropan (Oxybutynin Chloride) 5 Mg Tab 1 Tab PO TID 01/31/17 Reported Lorazepam 0.5 Mg Tab 0.5-1 Mg PO TID PRN 01/31/17 Reported Rosuvastatin Calcium 40 Mg Tab 40 Mg PO HS 01/31/17 Reported Proair Respiclick (Albuterol Sulfate) 108 Mcg/Act Aer 2 Puffs INH Q4H PRN 01/31/17 Reported Amitriptyline HCl 25 Mg Tab 25 Mg PO HS 01/31/17 Reported Montelukast Sodium (Montelukast Sod) 10 Mg Tab 10 Mg PO HS 01/31/17 Reported Humulin R U-500 Kwikpen (Insulin Regular (Human)) 500 Unit/Ml Deepti 195 Units SC QAM 01/31/17 Reported ADMINISTER THIS MEDICATION 30 MINUTES BEFORE BREAKFAST Lisinopril 2.5 Mg Tab 2.5 Mg PO QAM 01/31/17 Reported Prilosec (Omeprazole) 20 Mg Cap 20 Mg PO QAM 12/15/15 Reported TAKE THIS MEDICATION ONCE DAILY ONE HOUR BEFORE FIRST MEAL OF THE DAY Humulin R U-500 (Concentr (Insulin Regular (Human)) 500 Unit/Ml Inj 90 Units SC DINNER 12/15/15 Reported 30 MIN BEFORE SUPPER Miralax (Polyethylene Glycol 3350) 1 Pow Pow 17 Gm PO DAILY PRN 09/07/15 Reported Aspirin Ec (Aspirin) 81 Mg Tab 81 Mg PO HOLD 09/07/15 Reported Ultram (Tramadol HCl) 50 Mg Tab 100 Mg PO Q6H PRN 09/07/15 Reported Multivitamin (Multivitamins) Tab 1 Tab PO QAM 12/14/09 Reported Vital Signs Weight (Kilograms): 125.45 Height (Feet): 5 Height (Inches): 5 Physical Exam General Appearance: no apparent distress Respiratory/Chest: Auscultation: breath sounds normal Cardiovascular: Heart Auscultation: RRR Assessment and Plan Patient for upper endoscopy today with likely esophageal dilation. We have discussed the risks to include bleeding, infection, perforation and need for follow-up studies.
--- NOTE | 2017-09-29 09:32 | GI REPORT ---
Procedure Date: 09/29/2017 9:13 AM Procedure: Upper GI endoscopy Indications: Dysphagia Medicines: Monitored Anesthesia Care Complications: No immediate complications. Estimated blood loss: Minimal. Estimated Blood Loss: Estimated blood loss was minimal. Procedure: Pre-Anesthesia Assessment: - Prior to the procedure, a History and Physical was performed, and patient medications, allergies and sensitivities were reviewed. The patient's tolerance of previous anesthesia was reviewed. - The risks and benefits of the procedure and the sedation options and risks were discussed with the patient. All questions were answered and informed consent was obtained. - Patient identification and proposed procedure were verified prior to the procedure by the physician, the nurse and the sieve maker. The procedure was verified in the procedure room. - Pre-procedure physical examination revealed no contraindications to sedation. - ASA Grade Assessment: III - A patient with severe systemic disease. - After reviewing the risks and benefits, the patient was deemed in satisfactory condition to undergo the procedure. - The anesthesia plan was to use monitored anesthesia care (MAC). - Immediately prior to administration of medications, the patient was re-assessed for adequacy to receive sedatives. - The heart rate, respiratory rate, oxygen saturations, blood pressure, adequacy of pulmonary ventilation, and response to care were monitored throughout the procedure. - The physical status of the patient was re-assessed after the procedure. After obtaining informed consent, the endoscope was passed under direct vision. Throughout the procedure, the patient's blood pressure, pulse, and oxygen saturations were monitored continuously. The scope was introduced through the mouth, and advanced to the third part of duodenum. The upper GI endoscopy was accomplished without difficulty. The patient tolerated the procedure well. Findings: No endoscopic abnormality was evident in the esophagus to explain the patient's complaint of dysphagia. It was decided, however, to proceed with dilation of the entire esophagus. A guidewire was placed and the scope was withdrawn. Dilation was performed with a Savary dilator with no resistance at 51 Fr and mild resistance at 54 Fr. The endoscope was then reinserted to evaluate the success of the procedure between dilation. A superficial rent was noted at the GEJ after passage of the 54Fr dilator. Estimated blood loss was minimal. Mild portal hypertensive gastropathy was found in the entire examined stomach. The examined duodenum was normal. Impression: - No endoscopic esophageal abnormality to explain patient's dysphagia. Esophagus dilated to 54 Fr today. - Portal hypertensive gastropathy. - Normal examined duodenum. - No specimens collected. Recommendation: - Discharge patient to home (ambulatory). - Advance diet as tolerated today. - Repeat upper endoscopy in 1.5 years for screening purposes. Luan Watt D.O. Luan Watt, 09/29/2017 9:31:59 AM This report has been signed electronically. Note Initiated On: 09/29/2017 9:13 AM I attest to the content of the Intraoperative Record and orders documented therein, exceptions below
--- NOTE | 2017-09-29 09:39 | Discharge Instructions ---
Endoscopy Patient Instructions Date / Procedure(s) Performed Sep 29, 2017. EGD Allergy Information Coded Allergies: Ciprofloxacin (Verified Allergy, Unknown, MOUTH BLISTERS, HIVES, 09/29/17) Morphine (Verified Allergy, Unknown, HIVES, "DEATHLY ILL", THROWS UP, 09/29) Oxycodone (Verified Allergy, Unknown, HIVES, VOMITING, 09/29/17) Penicillin V (Verified Allergy, Unknown, HIVES, 09/29/17) Discharge Date / Findings Sep 29, 2017. Portal gastropathy Normal-appearing esophagus, dilation performed Medication Instructions Stopped Medication(s): ASA 81 MG Reported Home Medications Medications Dose Route/Sig Max Daily Dose Days Date Category Dose Instructions Zaroxolyn (Metolazone) 2.5 Mg Tab 2.5 Mg PO M,TH PRIOR TO LASIX 09/22/17 Reported Lasix (Furosemide) 80 Mg Tab 80 Mg PO BID 09/22/17 Reported Saline Nasal [place] (Saline) 0.65 % Spr 2 Sprays SONALI BID 07/23/17 Reported Nitrostat (Nitroglycerin) 0.3 Mg/1 Tab Subl 1 Tab SL DAILY 07/23/17 Reported Reglan (Metoclopramide HCl) 10 Mg Tab 10 Mg PO ACHS PRN 07/23/17 Reported Aldactone (Spironolactone) 100 Mg Tab 100 Mg PO DAILY 07/23/17 Reported Ditropan (Oxybutynin Chloride) 5 Mg Tab 1 Tab PO TID 01/31/17 Reported Lorazepam 0.5 Mg Tab 0.5-1 Mg PO TID PRN 01/31/17 Reported Rosuvastatin Calcium 40 Mg Tab 40 Mg PO HS 01/31/17 Reported Proair Respiclick (Albuterol Sulfate) 108 Mcg/Act Aer 2 Puffs INH Q4H PRN 01/31/17 Reported Amitriptyline HCl 25 Mg Tab 25 Mg PO HS 01/31/17 Reported Montelukast Sodium (Montelukast Sod) 10 Mg Tab 10 Mg PO HS 01/31/17 Reported Humulin R U-500 Kwikpen (Insulin Regular (Human)) 500 Unit/Ml Deepti 195 Units SC QAM 01/31/17 Reported ADMINISTER THIS MEDICATION 30 MINUTES BEFORE BREAKFAST Lisinopril 2.5 Mg Tab 2.5 Mg PO QAM 01/31/17 Reported Prilosec (Omeprazole) 20 Mg Cap 20 Mg PO QAM 12/15/15 Reported TAKE THIS MEDICATION ONCE DAILY ONE HOUR BEFORE FIRST MEAL OF THE DAY Humulin R U-500 (Concentr (Insulin Regular (Human)) 500 Unit/Ml Inj 90 Units SC DINNER 12/15/15 Reported 30 MIN BEFORE SUPPER Miralax (Polyethylene Glycol 3350) 1 Pow Pow 17 Gm PO DAILY PRN 09/07/15 Reported Aspirin Ec (Aspirin) 81 Mg Tab 81 Mg PO HOLD 09/07/15 Reported Ultram (Tramadol HCl) 50 Mg Tab 100 Mg PO Q6H PRN 09/07/15 Reported Multivitamin (Multivitamins) Tab 1 Tab PO QAM 12/14/09 Reported Provider Instructions Activity Restrictions - No exercising or heavy lifting for 24 hours. - Do not drink alcohol the day of the procedure. - Do not drive a car or operate machinery until the day after the procedure. - Do not make any important decisions or sign important papers in 24 hours after the procedure. Following Day: - Return to full activity which may include returning to work/school. Diet Start your diet with liquids and light foods (jello, soup, juice, toast). Then eat your usual diet if not nauseated. Treatment For Common After Affects For mild abdominal pain, bloating, or excessive gas: - Rest - Eat lightly - Lie on right side Follow-Up Information Follow-up with Dr Hart as scheduled Repeat upper endoscopy in 1.5 years for surveillance due to history of liver disease Follow-up with Ms. Blair in 6 months Anesthesia Information What You Should Know You have had a procedure that required some medicine to reduce anxiety and discomfort. This treatment is called moderate sedation. After receiving the treatment, you may be sleepy, but you will be able to breathe on your own. The effects of the treatment may last for several hours. Follow these instructions along with Activity/Diet recommendations noted above: * Do NOT do anything where dizziness or clumsiness would be dangerous. * Rest quietly at home today, then you can be up and about tomorrow. * Have a responsible person stay with you the rest of today. * You may have had an I.V. today. If so, you may take the dressing off later today. Recommendations Call your doctor if: * Trouble breathing * Continuous vomiting for more than 24 hours * Temperature above 101 degrees * Severe abdominal pain or bloating * Pain not relieved by pain medicine ordered * There is increased drainage or redness from any incision * A large amount of rectal bleeding greater than 2-3 tablespoons. (If you had a polyp/s removed or have hemorrhoids, a small amount of blood - from the rectum is to be expected.) * You have any unanswered questions or concerns. IN THE EVENT OF A SERIOUS EMERGENCY, GO TO THE NEAREST EMERGENCY ROOM Your discharge instructions were prepared by provider Luan Watt. Patient Instructions Signature Page Indu Carbone Patient (or Guardian) Signature/Date: I have read and understand the instructions given to me by my caregivers. Caregiver/RN/Doctor Signature/Date: The above-named patient and/or guardian has received patient instructions on this date. + Original Patient Signature Page (only) stays with chart. Please make copy for patient.
--- NOTE | 2017-09-29 09:47 | Anesthesiology Progress Note ---
Anesthesia Post Op Note Date & Time Sep 29, 2017 at 09:46 Vital Signs Vital Signs Past 12 Hours Date Time Temp Pulse Resp B/P (MAP) Pulse Ox O2 Delivery O2 Flow Rate FiO2 09/29/17 09:35 36.0 83 12 106/75 (85) 97 Room Air 09/29/17 08:49 36.5 76 20 150/64 (92) 97 Room Air Notes Mental Status: alert / awake / arousable, participated in evaluation Pt Amnestic to Procedure: Yes Nausea / Vomiting: adequately controlled Pain: adequately controlled Airway Patency, RR, SpO2: stable & adequate BP & HR: stable & adequate Hydration State: stable & adequate Anesthetic Complications: no major complications apparent
[2017-09-29 10:04] VITALS: BP 125/70; PULSE 70; O2SAT 97
== END | disposition home or self-care (01) ==
LOC: C.GI 08:05
PROVIDERS: ATTEND Nurse Practitioner
DX: R13.10 Dysphagia, unspecified (principal); J44.9 Chronic obstructive pulmonary disease, unspecified; G47.33 Obstructive sleep apnea (adult) (pediatric); K31.89 Other diseases of stomach and duodenum; K21.9 Gastro-esophageal reflux disease without esophagitis; I12.9 Hypertensive chronic kidney disease with stage 1 through stage 4 chronic kidney disease, or unspecified chronic kidney disease; N18.4 Chronic kidney disease, stage 4 (severe); E11.9 Type 2 diabetes mellitus without complications; Z88.1 Allergy status to other antibiotic agents; Z88.5 Allergy status to narcotic agent; Z88.0 Allergy status to penicillin; Z79.82 Long term (current) use of aspirin; Z90.49 Acquired absence of other specified parts of digestive tract; Z90.710 Acquired absence of both cervix and uterus; Z90.722 Acquired absence of ovaries, bilateral; Z90.79 Acquired absence of other genital organ(s)

== ENCOUNTER 2022-05-09 23:30 | Inpatient (IN) ==
[2022-05-09] MEDS ORDERED: SODIUM CHLORIDE 0.9% 500 ML IV ONE (23:57)
--- NOTE | 2022-05-10 00:20 | Emergency Department Note ---
Impression & Plan Acute dehydration, Acute hyperglycemia, Hypokalemia Admit to the hospitalist ED Provider Note NAME: HOSSEIN MCALLISTER AGE: 67 SEX: F ARRIVES VIA: Ambulance INFORMANT: Patient ED PROVIDER(S): Oumou Osborn DO CHIEF COMPLAINT: Fall PLAN: Disposition: Admit to the hospitalist Condition: Fair MEDICAL DECISION MAKING: This is a 67-year-old female patient with a history of diabetes who presents to the emergency department after suffering a fall at home as she was unable to get up. EMS found the patient's blood sugar to be greater than 500. By history, the patient had blood work drawn by visiting nurses and she was noted to have some renal insufficiency and dehydration. She has been trying to take plenty of clear liquids at home but has had significant weakness With them. Laboratory studies reveal significant hyperglycemia, low sodium, chloride and potassium. The patient had a significantly elevated BUN. Urinalysis revealed evidence of UTI. Patient was given a dose of IV Rocephin here in the emergency department and started on IV normal saline solution. I discussed the case with the hospitalist and they will evaluate for further management. Prior medical records reviewed Vital Signs: reviewed and remarkable for no significant abnormalities Differential diagnosis: Hyperglycemia, renal failure, DKA, traumatic injury from the fall, dehydration, bowel obstruction, constipation ER treatment provided: IV normal saline bolus IV Rocephin Diagnostics interpreted by me: ECG: Normal sinus rhythm at [address] segment elevation or signs of ischemia. There is no ectopy. Cardiac Monitoring: Normal sinus rhythm at 69 Laboratory studies: See below Imaging studies: As per my interpretation Portable chest x-ray: Cardiomegaly with no pulmonary infiltrates or opacities. HPI: 67/F arrives for evaluation of weakness. Patient has been suffering from dehydration and renal insufficiency at home. She was instructed to drink more fluids at home but has become increasingly weak. Patient has noticed that her blood sugars were rising at home. Tonight she attempted to stand up to go to the bathroom but unfortunately she fell to the ground landing on her right knee and twisting her right ankle. She called 911 for assistance in getting up off the floor but EMS noted that her blood sugar was greater than 500. ROS: See above HPI for pertinent positives & negatives. A total of 10 systems reviewed and were otherwise negative. PAST MEDICAL HISTORY:See Below PAST SURGICAL HISTORY:See Below FAMILY HISTORY:See Below SOCIAL HISTORY:See Below HOME MEDICATIONS:See list ALLERGIES:See list VITALS:See Below PHYSICAL EXAMINATION: HEENT: Head - normocephalic and atraumatic. Pupils are equal, round, and reactive to light. Extraocular eye muscles are intact, and sclera are anicteric. Nose - moist nasal mucosa without discharge. Mouth - moist buccal mucosa. Oropharynx is nonerythematous and there is no tonsillar exudate or edema noted. Neck: Supple; no JVD or cervical lymphadenopathy Heart: Regular rate and rhythm. There is a normal S1 and S2 with no murmurs, clicks, or gallops appreciated. Lungs: Clear to auscultation bilaterally with no wheezes, rales, or rhonchi. Abdomen: Soft, completely nontender, nondistended, with good bowel sounds. There are no palpable pulsatile masses or hepatosplenomegaly. There is no guarding, rigidity, or rebound noted. Extremities: No evidence of cyanosis, clubbing, or edema. There are easily palpable peripheral pulses. Skin: warm and dry with good turgor and no rashes. ED COURSE: Times/Reassessments: 2350: The patient was evaluated in room C 12. A complete history and physical was performed. Urine specimen was obtained. Laboratory studies were drawn as above. A twelve-lead EKG was obtained. An order was placed for continuous cardiac monitoring. Patient was in a normal sinus rhythm at a rate of 75. Patient was given a normal saline bolus. She was started on IV Rocephin. I discussed case with the hospitalist. Oumou Osborn DO Past Med/Surg History Medical History (Updated 05/12/22 @ 10:51 by Oumou Osborn DO) Cancer UTERINE CANCER SKIN CANCER Cardiac murmur Chronic kidney disease STAGE 3-4? F/U PCP Congestive heart failure Diffuse myofascial pain syndrome Diverticular disease DM2 (diabetes mellitus, type 2) IDDM Fatty liver PER PT ROME (generalized anxiety disorder) Gastroparesis GERD (gastroesophageal reflux disease) History of anesthesia reaction difficulty waking History of COVID-19 09/2020 @ [facility]--headache/diarrhea--no issues now HLD (hyperlipidemia) HTN (hypertension) Hx MRSA infection IBS (irritable bowel syndrome) Migraine Morbid obesity with BMI of 45.0-49.9, adult Nausea and vomiting after administration of anesthetic agent Occasional tremors AT NIGHT GARRETT on CPAP Osteoarthritis Surgical History Cancer H/O esophagogastroduodenoscopy H/O eye surgery History of appendectomy History of bladder surgery History of colonoscopy History of left heart catheterization (LHC) History of tooth extraction History of total knee replacement S/P cholecystectomy S/P VA-BSO Family History Father Diabetes Sister Ovarian cancer Family history of diabetes mellitus Sister Family history of diabetes mellitus Mother Breast cancer Family history of reaction to anesthesia Grandmother (Maternal) Myocardial infarction Uncle Prostate cancer Other Cancer Gallbladder disease Heart disease Hypertension Lung disease Denies family history of Colon cancer Social History (Updated 03/26/22 @ 14:52 by KANG Siddiqi) Smoking Status: Never smoker Second Hand Exposure: No; Hx Alcohol Use: No Hx Substance Use: No Preferred Language: Divehi Communication Ability: Effective Visual Impairment: No Limitations Hearing Ability: Normal Photolith Operator Required: No Beliefs That Will Affect Care: None marital status: Current Living Situation: Other Current Living Situation Comment: roommate at independent living current occupational status: retired 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 Feels Safe at Home: Yes Childhood Exposure to Second-Hand Smoke: Yes Dental Care, Regularly: Yes Physical Activity Frequency: 3-4 Times per Week Seatbelt Use: always Sunscreen Use: Yes Assistive Devices: Walker Allergies Allergies Allergy/AdvReac Type Severity Reaction Status Date / Time ciprofloxacin Allergy Intermediate MOUTH Verified 05/10/22 00:10 BLISTERS, HIVES morphine Allergy Intermediate HIVES, Verified 05/10/22 00:10 "DEATHLY ILL", THROWS UP oxycodone Allergy Intermediate HIVES, Verified 05/10/22 00:10 VOMITING penicillin V Allergy Intermediate HIVES Verified 05/10/22 00:10 Home Meds Home Medications Medication Instructions Recorded Confirmed nitroglycerin 0.4 mg sublingual 0.4 mg sublingual UD PRN Chest Pain 10/10/18 05/10/22 tablet (Nitrostat) rosuvastatin 40 mg tablet 40 mg PO HS 10/10/18 05/10/22 blood sugar diagnostic (Gander MountainTouch #50 ea 04/05/20 03/26/22 Ultra Blue Test Strip) lancets (OneTouch UltraSoft #100 ea 04/05/20 03/26/22 Lancets) lisinopril 2.5 mg tablet 2.5 mg PO QAM 10/11/21 05/10/22 metolazone 5 mg tablet 5 mg PO 3XWK 10/11/21 05/10/22 nadolol 20 mg tablet 10 mg PO QAM 10/11/21 05/10/22 dulaglutide 1.5 mg/0.5 mL 4.5 mg subcut WK 03/26/22 05/10/22 subcutaneous pen injector (Trulicity) insulin regular hum U-500 conc 500 See Rx Instructions .Route .COMPLEX 03/26/22 05/10/22 unit/mL(3 mL) subcut pen (Humulin R U-500 (Conc) Insulin Kwikpen) potassium chloride 10 mEq 10 meq PO 3XWK 03/26/22 05/10/22 tablet,extended release sertraline 50 mg tablet 50 mg PO DAILY 03/26/22 05/10/22 spironolactone 100 mg tablet 100 mg PO DAILY 03/26/22 05/10/22 torsemide 100 mg tablet 100 mg PO QAM 03/26/22 05/10/22 cranberry fruit 450 mg tablet 450 mg PO BID 05/10/22 05/10/22 (cranberry) duloxetine 60 mg capsule,delayed 60 mg PO HS 05/10/22 05/10/22 release ezetimibe 10 mg tablet 10 mg PO DAILY 05/10/22 05/10/22 Previous Rx's Medication Instructions Recorded flash glucose scanning reader #1 ea 06/05/20 (FreeStyle Courtney 2 [place]) BD Ultra-Fine Mini Pen Needle 31 #300 ea 10/30/20 gauge x 3/16" (pen needle, diabetic) flash glucose sensor (FreeStyle #2 ea 06/28/21 Courtney 2 Sensor kit) albuterol sulfate 90 mcg/actuation 2 puff inhalation Q4 PRN Shortness 12/20/21 aerosol inhaler (ProAir HFA) Of Breath Or Wheezing #8.5 grams Shower Chair #1 ea 03/28/22 omeprazole 40 mg capsule,delayed 40 mg PO QAM #90 caps 04/21/22 release Results & Data (ED) Vital Signs Vital Signs - 24 hr 05/09/22 23:42 05/10/22 00:04 Temperature 36.8 C Temperature Source Oral Pulse Rate 75 Pulse Rhythm Regular Pulse Strength Normal Respiratory Rate 20 Respiratory Effort / Characteristics Non-Labored Spontaneous Respiratory Depth Normal Blood Pressure 144/49 H Blood Pressure Mean 80 Blood Pressure Position Sitting Pulse Oximetry 98 97 Oxygen Delivery Method Room Air Room Air Sepsis Recent Fever Within 48 Hours No Sepsis New/Unexplained Change in Mental Status No Sepsis Action Taken by Nursing No Action Required Laboratory Data Result diagrams: 05/12/22 05:52 05/12/22 05:52 Lab Results 05/09/22 05/10/22 05/10/22 Range/Units 23:39 00:15 00:21 WBC 7.90 (4.8-10.8) K/ul RBC 4.65 (3.93-5.22) M/uL Hgb 14.3 (12.0-16.0) g/dl Hct 40.5 (34.1-44.9) % MCV 87.1 (80.0-100.0) fL MCH 30.8 (25.0-34.0) pg MCHC 35.3 (32.0-36.0) g/dL RDW Std Deviation 45.0 (36.4-46.3) fL RDW Coeff of Vanesa 14.2 (11.5-14.5) % Plt Count 136 (130-400) K/uL MPV 12.8 H (9.4-12.3) fL Immature Gran % (Auto) 0.3 % Neut % (Auto) 42.4 % Lymph % (Auto) 37.1 % [place] % (Auto) 17.1 % Eos % (Auto) 2.5 % Baso % (Auto) 0.6 % Neut # (Auto) 3.35 (1.4-6.5) K/uL Lymph # (Auto) 2.93 (1.2-3.4) K/uL [place] # (Auto) 1.35 H (0.24-0.82) K/uL Eos # (Auto) 0.20 (0-0.50) K/uL Baso # (Auto) 0.05 (0-0.2) K/uL Immature Gran # (Auto) 0.02 (0.00-0.02) K/uL Sodium (136-145) mmol/L Potassium (3.5-5.1) mmol/L Chloride (98-107) mmol/L Carbon Dioxide (21-32) mmol/L Anion Gap (3-11) BUN (6-23) mg/dl Creatinine (0.6-1.2) mg/dl Est Cr Clr Drug Dosing ml/min Est GFR ( Amer) ml/min Est GFR (Non-Af Amer) ml/min BUN/Creatinine Ratio (10-20) Glucose (70-99(Fasting)) mg/dl POC Glucose 539 H* (70-99) mg/dl Calcium (8.5-10.1) mg/dl Total Bilirubin (0.2-1.0) mg/dl AST (13-39) U/L ALT (7-52) U/L Alkaline Phosphatase (34-104) U/L Total Protein (6.0-8.3) gm/dl Albumin (3.4-5.0) gm/dl Globulin (2.5-4.0) gm/dl Albumin/Globulin Ratio (0.9-2) TSH (0.300-4.500) uIu/ml Urine Color Yellow Urine Appearance Clear (Clear) Urine pH 7.0 (4.5-7.5) Ur Specific [place] 1.029 (1.000-1.030) Urine Protein Negative (Negative) Urine Glucose (UA) 3+ H (Negative) Urine Ketones Negative (Negative) Urine Blood Negative (Negative) Urine Nitrite Negative (Negative) Urine Bilirubin Negative (Negative) Urine Urobilinogen Positive H (Negative) Ur Leukocyte Esterase 1+ H (Negative) Urine WBC (Auto) >30 H (0-5) /hpf Urine RBC (Auto) 0-4 (0-4) /hpf U Hyaline Cast (Auto) 1-5 (0-5) /lpf U Epithel Cells (Auto) >30 H (0-5) /lpf Urine Bacteria (Auto) 2+ H (Negative) Urine Yeast Present A (None Prsent) SARS-CoV-2, RNA, NAAT (NEGATIVE) 05/10/22 05/10/22 05/10/22 Range/Units 00:21 00:21 02:40 WBC (4.8-10.8) K/ul RBC (3.93-5.22) M/uL Hgb (12.0-16.0) g/dl Hct (34.1-44.9) % MCV (80.0-100.0) fL MCH (25.0-34.0) pg MCHC (32.0-36.0) g/dL RDW Std Deviation (36.4-46.3) fL RDW Coeff of Vanesa (11.5-14.5) % Plt Count (130-400) K/uL MPV (9.4-12.3) fL Immature Gran % (Auto) % Neut % (Auto) % Lymph % (Auto) % [place] % (Auto) % Eos % (Auto) % Baso % (Auto) % Neut # (Auto) (1.4-6.5) K/uL Lymph # (Auto) (1.2-3.4) K/uL [place] # (Auto) (0.24-0.82) K/uL Eos # (Auto) (0-0.50) K/uL Baso # (Auto) (0-0.2) K/uL Immature Gran # (Auto) (0.00-0.02) K/uL Sodium 130 L (136-145) mmol/L Potassium 3.2 L (3.5-5.1) mmol/L Chloride 90 L (98-107) mmol/L Carbon Dioxide 30 (21-32) mmol/L Anion Gap 10 (3-11) BUN 38 H (6-23) mg/dl Creatinine 1.19 (0.6-1.2) mg/dl Est Cr Clr Drug Dosing 60.9 ml/min Est GFR ( Amer) 54.7 ml/min Est GFR (Non-Af Amer) 47.2 ml/min BUN/Creatinine Ratio 31.9 H (10-20) Glucose 553 H* (70-99(Fasting)) mg/dl POC Glucose (70-99) mg/dl Calcium 9.7 (8.5-10.1) mg/dl Total Bilirubin 1.9 H (0.2-1.0) mg/dl AST 37 (13-39) U/L ALT 23 (7-52) U/L Alkaline Phosphatase 78 (34-104) U/L Total Protein 7.4 (6.0-8.3) gm/dl Albumin 3.0 L (3.4-5.0) gm/dl Globulin 4.4 H (2.5-4.0) gm/dl Albumin/Globulin Ratio 0.7 L (0.9-2) TSH 3.489 (0.300-4.500) uIu/ml Urine Color Urine Appearance (Clear) Urine pH (4.5-7.5) Ur Specific [place] (1.000-1.030) Urine Protein (Negative) Urine Glucose (UA) (Negative) Urine Ketones (Negative) Urine Blood (Negative) Urine Nitrite (Negative) Urine Bilirubin (Negative) Urine Urobilinogen (Negative) Ur Leukocyte Esterase (Negative) Urine WBC (Auto) (0-5) /hpf Urine RBC (Auto) (0-4) /hpf U Hyaline Cast (Auto) (0-5) /lpf U Epithel Cells (Auto) (0-5) /lpf Urine Bacteria (Auto) (Negative) Urine Yeast (None Prsent) SARS-CoV-2, RNA, NAAT NEGATIVE (NEGATIVE) Administered Medications Acetaminophen (Acetaminophen 325 Mg Tab) 650 mg PO Q4H PRN PRN Reason: pain/fever Stop: 06/09/22 05:02 Last Admin: 05/11/22 23:07 Dose: 650 mg Documented By: Admin: 05/11/22 02:14 Dose: 650 mg Documented By: Admin: 05/10/22 20:36 Dose: 650 mg Documented By: Diclofenac Sodium (Diclofenac Sod 1% Gel 100 Gm Tube) 2 gm EXT QID [facility]; Protocol Stop: 06/10/22 16:59 Last Admin: 05/12/22 07:39 Dose: 2 gm Documented By: Admin: 05/11/22 20:42 Dose: 2 gm Documented By: Admin: 05/11/22 17:14 Dose: 2 gm Documented By: MANDIE Docusate Sodium (Docusate Sodium 100 Mg Cap) 100 mg PO BID PRN PRN Reason: Constipation Stop: 06/09/22 05:02 Last Admin: 05/10/22 05:29 Dose: 100 mg Documented By: TAIWO Docusate Sodium (Docusate Sodium 100 Mg Cap) 100 mg PO BID [facility] Stop: 06/09/22 09:29 Last Admin: 05/12/22 07:40 Dose: 100 mg Documented By: Admin: 05/11/22 20:43 Dose: 100 mg Documented By: Admin: 05/11/22 08:07 Dose: 100 mg Documented By: Admin: 05/10/22 20:36 Dose: 100 mg Documented By: Admin: 05/10/22 09:36 Dose: 100 mg Documented By: ELIZABETH Duloxetine HCl (Duloxetine Hcl 60 Mg Cap) 60 mg PO HS [facility] Stop: 06/09/22 20:59 Last Admin: 05/11/22 20:42 Dose: 60 mg Documented By: Admin: 05/10/22 20:36 Dose: 60 mg Documented By: TAIWO Ezetimibe (Ezetimibe 10 Mg Tablet) 10 mg PO DAILY [facility] Stop: 06/09/22 08:59 Last Admin: 05/12/22 07:41 Dose: 10 mg Documented By: Admin: 05/11/22 08:09 Dose: 10 mg Documented By: Admin: 05/10/22 08:59 Dose: 10 mg Documented By: ELIZABETH Famotidine (Famotidine 40 Mg Tablet) 40 mg PO QAM [facility] Stop: 06/09/22 08:59 Last Admin: 05/12/22 08:00 Dose: 40 mg Documented By: Admin: 05/11/22 08:09 Dose: 40 mg Documented By: Admin: 05/10/22 08:59 Dose: 40 mg Documented By: ELIZABETH Ceftriaxone Sodium 2,000 mg/ (Dextrose) 70 mls @ 100 mls/hr IV Q24H [facility]; Protocol Stop: 05/16/22 05:59 Last Infusion: 05/12/22 06:20 Dose: 0 mls/hr Documented By: Admin: 05/12/22 05:27 Dose: 100 mls/hr Documented By: Infusion: 05/11/22 05:50 Dose: 0 mls/hr Documented By: Admin: 05/11/22 05:08 Dose: 100 mls/hr Documented By: TAIWO Insulin Aspart (Insulin Aspart Per Unit) 0 units SC ACHS [facility] Stop: 06/09/22 16:29 Last Admin: 05/12/22 07:59 Dose: 11 units Documented By: MANDIE Co-signed By: JAYLEEN Admin: 05/11/22 20:40 Dose: 1 units Documented By: NASH Co-signed By: Miki Admin: 05/11/22 17:13 Dose: 12 units Documented By: MANDIE Co-signed By: JAYLEEN Admin: 05/11/22 12:00 Dose: 19 units Documented By: MANDIE Co-signed By: JAYLEEN Admin: 05/11/22 08:04 Dose: 10 units Documented By: MANDIE Co-signed By: JAYLEEN Admin: 05/10/22 20:27 Dose: Not Given Documented By: Admin: 05/10/22 16:59 Dose: 9 units Documented By: ELIZABETH Co-signed By: LAURA Insulin Human NPH (Insulin Human Nph) 65 units SC DAILY@0800 [facility] Stop: 06/11/22 07:59 Last Admin: 05/12/22 08:00 Dose: 65 units Documented By: MANDIE Co-signed By: JAYLEEN Lidocaine ([facility]idocaine 5% 1 Patch) [facility] [place] Stop: 06/10/22 10:29 Last Admin: 05/12/22 07:40 Dose: 1 patch Documented By: Admin: 05/11/22 11:54 Dose: 1 patch Documented By: MANDIE Lisinopril (Lisinopril 2.5 Mg Tab) 2.5 [facility] [place] Stop: 06/09/22 08:59 Last Admin: 05/12/22 07:41 Dose: 2.5 mg Documented By: Admin: 05/11/22 08:07 Dose: 2.5 mg Documented By: Admin: 05/10/22 08:59 Dose: 2.5 mg Documented By: ELIZABETH Miscellaneous (Remove Lidoderm Patch) 1 each N/A DAILY@2100 [facility] Stop: 06/10/22 20:59 Last Admin: 05/11/22 20:44 Dose: 1 each Documented By: NASH Nadolol (Nadolol 40 Mg Tab) 10 mg PO QAM [facility] Stop: 06/09/22 08:59 Last Admin: 05/12/22 07:40 Dose: 10 mg Documented By: Admin: 05/11/22 08:07 Dose: 10 mg Documented By: Admin: 05/10/22 08:59 Dose: 10 mg Documented By: ELIZABETH Polyethylene Glycol (Polyethylene (Miralax) 17 Gm Pack) 17 gm PO DAILY PRN PRN Reason: Constipation Stop: 06/09/22 05:02 Last Admin: 05/10/22 05:29 Dose: 17 gm Documented By: Rosuvastatin Calcium (Rosuvastatin Calcium 20 Mg Tab) 40 mg PO HS [facility] Stop: 06/09/22 20:59 Last Admin: 05/11/22 20:43 Dose: 40 mg Documented By: Admin: 05/10/22 20:35 Dose: 40 mg Documented By: Sennosides (Senna 8.6 Mg Tab) 8.6 mg PO QAM [facility] Stop: 06/09/22 09:29 Last Admin: 05/12/22 07:41 Dose: 8.6 mg Documented By: Admin: 05/11/22 08:09 Dose: 8.6 mg Documented By: Admin: 05/10/22 09:47 Dose: 8.6 mg Documented By: ELIZABETH Sertraline HCl (Sertraline Hcl 50 Mg Tablet) 50 mg PO DAILY [facility] Stop: 06/09/22 08:59 Last Admin: 05/12/22 07:41 Dose: 50 mg Documented By: Admin: 05/11/22 08:09 Dose: 50 mg Documented By: Admin: 05/10/22 08:59 Dose: 50 mg Documented By: ELIZABETH Discontinued Medications Gadobutrol (Gadobutrol 30ml Vial) 12 ml IV ONCE ONE Stop: 05/11/22 15:17 Last Admin: 05/11/22 15:16 Dose: 12 ml Documented By: MANOLO Sodium Chloride (Nss) 500 mls @ 999 mls/hr IV .Q31M ONE Stop: 05/10/22 00:27 Last Infusion: 05/10/22 01:49 Dose: 0 mls/hr Documented By: Admin: 05/10/22 00:23 Dose: 999 mls/hr Documented By: LIANNA Ceftriaxone Sodium (Rocephin) 2,000 mg in 70 mls @ 140 mls/hr IV NOW STA Stop: 05/10/22 02:49 Last Infusion: 05/10/22 03:50 Dose: 0 mls/hr Documented By: Admin: 05/10/22 02:27 Dose: 140 mls/hr Documented By: LIANNA Sodium Chloride (Nss 1000ml) 1,000 mls @ 999 mls/hr IV .Q1H1M ONE Stop: 05/10/22 05:33 Last Admin: 05/10/22 05:07 Dose: Not Given Documented By: Sodium Chloride (Nss 1000ml) 1,000 mls @ 125 mls/hr IV .Q8H [facility] Stop: 05/10/22 21:02 Last Infusion: 05/10/22 09:03 Dose: 0 mls/hr Documented By: Admin: 05/10/22 05:35 Dose: 125 mls/hr Documented By: Magnesium Sulfate/Dextrose (Magnesium Sulfate / D5w) 1 gm in 100 mls @ 50 mls/hr IV ONE ONE Stop: 05/10/22 07:02 Last Infusion: 05/10/22 07:46 Dose: 0 mls/hr Documented By: Admin: 05/10/22 05:35 Dose: 50 mls/hr Documented By: Potassium Chloride/Sodium Chloride (Normal Saline W/20 Meq Kcl) 20 meq in 1,000 mls @ 125 mls/hr IV .Q8H [facility] Stop: 05/11/22 00:59 Last Infusion: 05/11/22 01:01 Dose: 0 mls/hr Documented By: Admin: 05/10/22 17:00 Dose: 125 mls/hr Documented By: Infusion: 05/10/22 17:00 Dose: 125 mls/hr Documented By: Admin: 05/10/22 09:30 Dose: 125 mls/hr Documented By: ELIZABETH Insulin Human Regular 250 (units/ Sodium Chloride) 250 mls @ 2.7 mls/hr IV .Q24H [facility]; Protocol Stop: 05/10/22 15:30 Last Titration: 05/10/22 15:06 Dose: 0 units/hr, 0 mls/hr Documented By: ELIZABETH Co-signed By: ANGEL Titration: 05/10/22 14:15 Dose: 2.7 units/hr, 2.7 mls/hr Documented By: ELIZABETH Co-signed By: ANGEL Titration: 05/10/22 13:15 Dose: 2.7 units/hr, 2.7 mls/hr Documented By: ELIZABETH Co-signed By: RRR Titration: 05/10/22 12:14 Dose: 2.7 units/hr, 2.7 mls/hr Documented By: ELIZABETH Co-signed By: ANGEL Titration: 05/10/22 11:45 Dose: 0 units/hr, 0 mls/hr Documented By: ELIZABETH Co-signed By: ANGEL Admin: 05/10/22 10:39 Dose: 4.5 units/hr, 4.5 mls/hr Documented By: ELIZABETH Co-signed By: ENRIQUE Insulin Human Regular 4.5 (units/ Syringe) 4.5 mls @ 0 mls/min IV ONE ONE Stop: 05/10/22 10:31 Last Admin: 05/10/22 10:39 Dose: 4.5 mls/min Documented By: ELIZABETH Co-signed By: ENRIQUE Magnesium Sulfate/Dextrose (Magnesium Sulfate / D5w) 1 gm in 100 mls @ 50 mls/hr IV ONE ONE Stop: 05/12/22 10:14 Last Admin: 05/12/22 09:12 Dose: 50 mls/hr Documented By: MANDIE Influenza Virus Vaccine (Flu Vaccine-High Dose (Fluzone-Hd) Pf 65+ 0.7ml Syr) 0.7 ml IM .ONCE ONE Stop: 05/10/22 09:01 Last Admin: 05/10/22 09:47 Dose: 0.7 ml Documented By: ELIZABETH Insulin Aspart (Insulin Aspart Per Unit) 0 units SC [facility] Stop: 06/09/22 05:44 Last Admin: 05/10/22 08:52 Dose: 28 units Documented By: ELIZABETH Co-signed By: ENRIQUE Admin: 05/10/22 06:57 Dose: 15 units Documented By: TAIWO Co-signed By: YVONNE Insulin Aspart (Insulin Aspart Per Unit) 0 units SC [facility] Stop: 06/09/22 11:29 Last Admin: 05/10/22 12:05 Dose: Not Given Documented By: ELIZABETH Co-signed By: ANGEL Insulin Aspart (Insulin Aspart Per Unit) 0 units SC ONE ONE Stop: 05/10/22 12:16 Last Admin: 05/10/22 12:07 Dose: 5 units Documented By: ELIZABETH Co-signed By: ANGEL Insulin Glargine (Lantus Per Unit Charge) 12 units SQ BID [facility] Stop: 06/09/22 05:29 Last Admin: 05/10/22 06:57 Dose: 12 units Documented By: TAIWO Co-signed By: YVONNE Insulin Human NPH (Insulin Human Nph) 65 units SC DAILY@0800 [facility] Stop: 06/09/22 07:59 Last Admin: 05/11/22 08:04 Dose: 65 units Documented By: MANDIE Co-signed By: JAYLEEN Admin: 05/10/22 08:52 Dose: 65 units Documented By: ELIZABETH Co-signed By: ENRIQUE Insulin Human NPH (Insulin Human Nph) 0 units SC DAILY@1700 [facility]; Protocol Stop: 05/10/22 17:01 Last Admin: 05/10/22 17:00 Dose: 10 units Documented By: ELIZABETH Co-signed By: LAURA Insulin Human NPH (Insulin Human Nph) 0 units SC DAILY@1700 [facility]; Protocol Stop: 05/11/22 17:01 Last Admin: 05/11/22 17:14 Dose: 10 units Documented By: MANDIE Co-signed By: JAYLEEN Insulin Human Regular (Novolin-R Insulin Per Unit Charge) 10 units IV NOW STA Stop: 05/10/22 02:21 Last Admin: 05/10/22 02:25 Dose: 10 units Documented By: LIANNA Co-signed By: ANNE Ketorolac Tromethamine (Ketorolac Tromethamine 15 Mg/Ml Vial) 15 mg IV NOW ONE Stop: 05/12/22 05:14 Last Admin: 05/12/22 05:26 Dose: 15 mg Documented By: NASH Lorazepam (Lorazepam 0.5 Mg Tab) 0.5 mg SL NOW STA Stop: 05/11/22 13:36 Last Admin: 05/11/22 14:26 Dose: 0.5 mg Documented By: MANDIE Miscellaneous (Stop Order) 1 each N/A ONE ONE Stop: 05/10/22 15:31 Last Admin: 05/10/22 15:06 Dose: 1 each Documented By: ELIZABETH Potassium Chloride (Potassium Chloride Crtab 20 Meq Tabcr) 60 meq PO NOW STA Stop: 05/10/22 05:04 Last Admin: 05/10/22 05:29 Dose: 60 meq Documented By: Potassium Chloride (Potassium Chloride Crtab 20 Meq Tabcr) 40 meq PO NOW STA Stop: 05/10/22 14:56 Last Admin: 05/10/22 15:12 Dose: 40 meq Documented By: ELIZABETH Discharge Plan Visit Data Chief Complaint: Hyperglycemia Stated Complaint: Hypergycemia, Dizziness, Weakness ED Provider: Oumou Osborn Discharge Problem: Acute dehydration, Acute hyperglycemia, Hypokalemia Patient Disposition: Admitted As Inpatient Discharge Instructions Interventions: ED Discharge Assessment Last Done: 05/10/22 04:36
[2022-05-10 00:38] LABS: Basophils # (auto) 0.05 K/uL (0-0.2); Basophils % (auto) 0.6 %; Eosinophils % (auto) 2.5 %; Hematocrit (blood only) 40.5 % (34.1-44.9); Hemoglobin 14.3 g/dl (12.0-16.0); Immature Granulocytes # (auto) 0.02 K/uL (0.00-0.02); Immature Granulocytes % (auto) 0.3 %; Lymphocytes # (auto) 2.93 K/uL (1.2-3.4); Lymphocytes % (auto) 37.1 %; Mean Corpuscular Hemoglobin 30.8 pg (25.0-34.0); Mean Corpuscular Hgb Conc 35.3 g/dL (32.0-36.0); Mean Corpuscular Volume 87.1 fL (80.0-100.0); Mean Platelet Volume 12.8 fL (9.4-12.3); Monocytes # (auto) 1.35 K/uL (0.24-0.82); Monocytes % (auto) 17.1 %; Neutrophils # (auto) 3.35 K/uL (1.4-6.5); Neutrophils % (auto) 42.4 %; Platelet Count 136 K/uL (130-400); RDW Coefficient of Variation 14.2 % (11.5-14.5); Red Blood Count 4.65 M/uL (3.93-5.22)
[2022-05-10 00:44] LABS: Appearance Urine Clear (Clear); Bacteria Urine Automated 2+ (Negative); Bilirubin Urine Negative (Negative); Blood Urine Negative (Negative); Color Urine Yellow; Epithelial Cell Urine Auto >30 /lpf (0-5); Glucose Urine UA 3+ (Negative); Ketones Urine Negative (Negative); Leukocyte Esterase Urine 1+ (Negative); Nitrite Urine Negative (Negative); Protein Urine Negative (Negative); Specific Gravity Urine 1.029 (1.000-1.030); Urobilinogen Urine Positive (Negative); WBC Urine Automated >30 /hpf (0-5)
--- NOTE | 2022-05-10 00:52 | XRay Report ---
SINGLE VIEW CHEST CLINICAL HISTORY: Generalized weakness. FINDINGS: An AP, portable, upright chest radiograph is compared to study dated 09/24/2020. The heart is enlarged noting atherosclerotic calcification of the thoracic aorta. The pulmonary vasculature is no ncongested. Chronic interstitial thickening is somewhat previous. The lungs and pleural spaces are cl ear noting mild bibasilar atelectasis. No pneumothorax is seen. The skeletal structures are osteopeni c. The bony thorax is grossly intact. IMPRESSION: Cardiomegaly with no active disease in the chest. ACT 112: Negative or not required by law. Electronically signed by: Bravo Moe M.D. 05/10/2022 12:51 AM
[2022-05-10 01:12] LABS: RBC Urine Automated 0-4 /hpf (0-4)
[2022-05-10 01:51] LABS: Albumin Globulin Ratio 0.7 (0.9-2); BUN Creatinine Ratio 31.9 (10-20); Bilirubin,Total 1.9 mg/dl (0.2-1.0); Calcium 9.7 mg/dl (8.5-10.1); Creatinine Clr Calc Pharmacy 60.9 ml/min; Est GFR (African American) 54.7 ml/min; Est GFR (Non-African American) 47.2 ml/min; Globulin 4.4 gm/dl (2.5-4.0); Potassium 3.2 mmol/L (3.5-5.1); Total Protein 7.4 gm/dl (6.0-8.3)
[2022-05-10] MEDS ORDERED: NovoLIN-R INSULIN PER UNIT CHARGE IV STA (02:20)
[2022-05-10] MEDS ORDERED: cefTRIAXone SODIUM 2,000 MG/70 ML BAG IV STA (02:20)
--- NOTE | 2022-05-10 03:13 | History & Physical Report ---
Date of Service May 10, 2022 Assessment & Plan (1) DM2 (diabetes mellitus, type 2): Plan: Blood sugar on arrival 553. After 500mL NSS and 10u IV insulin blood sugar decreased to 386 -Will give additional liter bolus now then NSS at 125mL/hr x 2 liters -Lantus 12u BID -ISS -Glycemic management consultation appreciated -Check Hgb A1C -Consider observing patient's insulin injection technique to ensure effective delivery (2) Depression: Plan: Chronic. Stable -Continue Duloxetine -Continue Sertraline (3) GARRETT on CPAP: Plan: Continue CPAP qHS (4) HTN (hypertension): Plan: Well controlled -Continue Lisinopril -Continue nadolol -Holding diuretics - Torsemide, Spironolactone (5) HLD (hyperlipidemia): Plan: Chronic. Stable on medications -Continue Crestor -Continue zetia (6) GERD (gastroesophageal reflux disease): Plan: Chronic. Stable -Continue Omeprazole F/E/N - NSS at 125mL/hr x 2 liters, KCl 20Meq, Mg x 1gm, CC/AHA diet as tolerated Ppx - low risk for dvt Code - Full Dispo - Admit to medical History of Present Illness Chief Complaint: hyperglycemia Primary Care Provider: Alana Peres MD Indu Carbone is a 67yo female with history of DM, HTN, HLP, GERD presenting with hyperglycemia. Patient has home nursing. She reports that her blood sugars have been difficult to control for the last two weeks. She was instructed to drink a lot of fluid at home to help with her high blood sugars. She has been doing this but blood sugars continue to be high. Over the last several days she has developed progressive weakness with difficulty ambulating. She did have a ground level fall this evening in her home. No head trauma or loss of consciousness. She had a difficult time getting up so EMS was called. Her blood sugar was 592 when EMS arrived. She additionally feels that she is constipated and bloated. She is passing gas but has not had a good bowel movement in appx 2 weeks. She reports eating less and feeling full soon into the meal. Otherwise denies fever, chills, chest pain, cough, SOB, abdominal pain, vomiting or diarrhea. Patient is on high doses of insulin. Humulin Pen U-500. She checks her blood sugar 3x daily. She takes 130 units before breakfast, 20 units before lunch. She is also on Trulicity 1.5mg weekly (Fridays). She reports that her blood sugars had been improved - typically in the 150's to 200's. Over the last two weeks they have been closer to 500 throughout the day. Per Pharmacy note - she is intolerant to Metformin, had nausea/vomiting with [place] and has frequent UTIs - avoid SGLT2 Allergies Allergy/AdvReac Type Severity Reaction Status Date / Time ciprofloxacin Allergy Intermediate MOUTH Verified 05/10/22 00:10 BLISTERS, HIVES morphine Allergy Intermediate HIVES, Verified 05/10/22 00:10 "DEATHLY ILL", THROWS UP oxycodone Allergy Intermediate HIVES, Verified 05/10/22 00:10 VOMITING penicillin V Allergy Intermediate HIVES Verified 05/10/22 00:10 Home Medications Medication Instructions Recorded Confirmed Type nitroglycerin 0.4 mg sublingual 0.4 mg sublingual UD PRN Chest Pain 10/10/18 05/10/22 History tablet (Nitrostat) rosuvastatin 40 mg tablet 40 mg PO HS 10/10/18 05/10/22 History blood sugar diagnostic (OneTouch #50 ea 04/05/20 03/26/22 History Ultra Blue Test Strip) lancets (OneTouch UltraSoft #100 ea 04/05/20 03/26/22 History Lancets) flash glucose scanning reader #1 ea 06/05/20 03/26/22 Rx (FreeStyle [place] 2 [place]) BD Ultra-Fine Mini Pen Needle 31 #300 ea 10/30/20 03/26/22 Rx gauge x 3/16" (pen needle, diabetic) flash glucose sensor (FreeStyle #2 ea 06/28/21 03/26/22 Rx Courtney 2 Sensor kit) lisinopril 2.5 mg tablet 2.5 mg PO QAM 10/11/21 05/10/22 History metolazone 5 mg tablet 5 mg PO 3XWK 10/11/21 05/10/22 History nadolol 20 mg tablet 10 mg PO QAM 10/11/21 05/10/22 History albuterol sulfate 90 mcg/actuation 2 puff inhalation Q4 PRN Shortness 12/20/21 05/10/22 Rx aerosol inhaler (ProAir HFA) Of Breath Or Wheezing #8.5 grams dulaglutide 1.5 mg/0.5 mL 4.5 mg subcut WK 03/26/22 05/10/22 History subcutaneous pen injector (Trulicity) insulin regular hum U-500 conc 500 See Rx Instructions .Route .COMPLEX 03/26/22 05/10/22 History unit/mL(3 mL) subcut pen (Humulin R U-500 (Conc) Insulin Kwikpen) potassium chloride 10 mEq 10 meq PO 3XWK 03/26/22 05/10/22 History tablet,extended release sertraline 50 mg tablet 50 mg PO DAILY 03/26/22 05/10/22 History spironolactone 100 mg tablet 100 mg PO DAILY 03/26/22 05/10/22 History torsemide 100 mg tablet 100 mg PO QAM 03/26/22 05/10/22 History Shower Chair #1 ea 03/28/22 Rx omeprazole 40 mg capsule,delayed 40 mg PO QAM #90 caps 04/21/22 05/10/22 Rx release cranberry fruit 450 mg tablet 450 mg PO BID 05/10/22 05/10/22 History (cranberry) duloxetine 60 mg capsule,delayed 60 mg PO HS 05/10/22 05/10/22 History release ezetimibe 10 mg tablet 10 mg PO DAILY 05/10/22 05/10/22 History Past Med/Surg History Medical History (Updated 01/01/22 @ 12:21 by Dirk Ramos PA-C) Cancer UTERINE CANCER SKIN CANCER Cardiac murmur Chronic kidney disease STAGE 3-4? F/U PCP Congestive heart failure Diffuse myofascial pain syndrome Diverticular disease DM2 (diabetes mellitus, type 2) IDDM Fatty liver PER PT R[place] (generalized anxiety disorder) Gastroparesis GERD (gastroesophageal reflux disease) History of anesthesia reaction difficulty waking History of COVID-19 09/2020 @ [facility]--headache/diarrhea--no issues now HLD (hyperlipidemia) HTN (hypertension) Hx MRSA infection IBS (irritable bowel syndrome) Migraine Morbid obesity with BMI of 45.0-49.9, adult Nausea and vomiting after administration of anesthetic agent Occasional tremors AT NIGHT GARRTET on CPAP Osteoarthritis Surgical History Cancer H/O esophagogastroduodenoscopy H/O eye surgery History of appendectomy History of bladder surgery History of colonoscopy History of left heart catheterization (LHC) History of tooth extraction History of total knee replacement S/P cholecystectomy S/P VA-BSO Family History Father Diabetes Sister Ovarian cancer Family history of diabetes mellitus Sister Family history of diabetes mellitus Mother Breast cancer Family history of reaction to anesthesia Grandmother (Maternal) Myocardial infarction Uncle Prostate cancer Other Cancer Gallbladder disease Heart disease Hypertension Lung disease Denies family history of Colon cancer Social History (Updated 03/26/22 @ 14:52 by KANG Siddiqi) Smoking Status: Never smoker Second Hand Exposure: No; Hx Alcohol Use: No Hx Substance Use: No Preferred Language: Japanese Communication Ability: Effective Visual Impairment: No Limitations Hearing Ability: Normal Bell Cleaner Required: No Beliefs That Will Affect Care: None marital status: Current Living Situation: Spouse current occupational status: retired 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 Feels Safe at Home: Yes Childhood Exposure to Second-Hand Smoke: Yes Dental Care, Regularly: Yes Physical Activity Frequency: 3-4 Times per Week Seatbelt Use: always Sunscreen Use: Yes Assistive Devices: CPAP, Glasses and Walker Review of Systems Review of Systems: All systems reviewed & are unremarkable except as noted in HPI & below Physical Exam Physical Exam: General: patient resting comfortably, NAD, non-toxic in appearance, AA&O x 4 Skin: warm, dry, intact, no rashes or lesions HEENT: NC/AT, PERRL, EOMI, anicteric sclera, conjunctiva without injection, external ear normal to inspection and nontender, nares patent, dry mucus membranes, dentition intact, no oropharyngeal lesions, neck supple, trachea midline, no LAD, no thyromegaly, no JVD Heart: +S1/S2, regular, no m/r/g Lungs: equal air entry bilaterally, no rales/rhonchi/wheezes Abd: +BS, soft, NT/ND, no masses/organomegaly/ascites Ext: warm, 2+ pulses in UE/LE bilaterally, no clubbing/cyanosis or edema Neuro: nonfocal, patient AA&O x 4, speech intact, no facial droop, moving all extremities on command with equal strength 5/5 Results & Data Results & Data ([facility]) Vital Signs (Past 12 Hours) Vital Signs Temp Pulse Pulse Resp BP BP Pulse Ox 05/10/22 01:36 72 20 146/61 H 95 05/10/22 00:04 97 05/09/22 23:42 36.8 C 75 20 144/49 H 98 O2 Del Method 05/10/22 01:36 Room Air 05/10/22 00:04 Room Air 05/09/22 23:42 Room Air Laboratory Results Laboratory Results WBC 7.90 K/ul (4.8-10.8) 05/10/22 00:21 RBC 4.65 M/uL (3.93-5.22) 05/10/22 00:21 Hgb 14.3 g/dl (12.0-16.0) 05/10/22 00:21 Hct 40.5 % (34.1-44.9) 05/10/22 00:21 MCV 87.1 fL (80.0-100.0) 05/10/22 00:21 MCH 30.8 pg (25.0-34.0) 05/10/22 00:21 MCHC 35.3 g/dL (32.0-36.0) 05/10/22 00:21 RDW Std Deviation 45.0 fL (36.4-46.3) 05/10/22 00: RDW Coeff of Vanesa 14.2 % (11.5-14.5) 05/10/22 00:21 Plt Count 136 K/uL (130-400) 05/10/22 00:21 MPV 12.8 fL (9.4-12.3) H 05/10/22 00:21 Immature Gran % (Auto) 0.3 % 05/10/22 00:21 Neut % (Auto) 42.4 % 05/10/22 00:21 Lymph % (Auto) 37.1 % 05/10/22 00:21 [place] % (Auto) 17.1 % 05/10/22 00:21 Eos % (Auto) 2.5 % 05/10/22 00:21 Baso % (Auto) 0.6 % 05/10/22 00:21 Neut # (Auto) 3.35 K/uL (1.4-6.5) 05/10/22 00:21 Lymph # (Auto) 2.93 K/uL (1.2-3.4) 05/10/22 00:21 [place] # (Auto) 1.35 K/uL (0.24-0.82) H 05/10/22 00:21 Eos # (Auto) 0.20 K/uL (0-0.50) 05/10/22 00:21 Baso # (Auto) 0.05 K/uL (0-0.2) 05/10/22 00:21 Immature Gran # (Auto) 0.02 K/uL (0.00-0.02) 05/10/22 00:21 Sodium 130 mmol/L (136-145) L 05/10/22 00:21 Potassium 3.2 mmol/L (3.5-5.1) L 05/10/22 00:21 Chloride 90 mmol/L (98-107) L 05/10/22 00:21 Carbon Dioxide 30 mmol/L (21-32) 05/10/22 00:21 Anion Gap 10 (3-11) 05/10/22 00:21 BUN 38 mg/dl (6-23) H 05/10/22 00:21 Creatinine 1.19 mg/dl (0.6-1.2) 05/10/22 00:21 Est Cr Clr Drug Dosing 60.9 ml/min 05/10/22 00:21 Est GFR ( Amer) 54.7 ml/min 05/10/22 00:21 Est GFR (Non-Af Amer) 47.2 ml/min 05/10/22 00:21 BUN/Creatinine Ratio 31.9 (10-20) H 05/10/22 00:21 Glucose 553 mg/dl (70-99(Fasting)) H* 05/10/22 00:21 POC Glucose 386 mg/dl (70-99) H* 05/10/22 03:53 Calcium 9.7 mg/dl (8.5-10.1) 05/10/22 00:21 Total Bilirubin 1.9 mg/dl (0.2-1.0) H 05/10/22 00:21 AST 37 U/L (13-39) 05/10/22 00:21 ALT 23 U/L (7-52) 05/10/22 00:21 Alkaline Phosphatase 78 U/L (34-104) 05/10/22 00:21 Total Protein 7.4 gm/dl (6.0-8.3) 05/10/22 00:21 Albumin 3.0 gm/dl (3.4-5.0) L 05/10/22 00:21 Globulin 4.4 gm/dl (2.5-4.0) H 05/10/22 00:21 Albumin/Globulin Ratio 0.7 (0.9-2) L 05/10/22 00:21 TSH 3.489 uIu/ml (0.300-4.500) 05/10/22 00:21 Urine Color Yellow 05/10/22 00:15 Urine Appearance Clear (Clear) 05/10/22 00:15 Urine pH 7.0 (4.5-7.5) 05/10/22 00:15 Ur Specific Basile 1.029 (1.000-1.030) 05/10/22 00:15 Urine Protein Negative (Negative) 05/10/22 00:15 Urine Glucose (UA) 3+ (Negative) H 05/10/22 00:15 Urine Ketones Negative (Negative) 05/10/22 00:15 Urine Blood Negative (Negative) 05/10/22 00:15 Urine Nitrite Negative (Negative) 05/10/22 00:15 Urine Bilirubin Negative (Negative) 05/10/22 00:15 Urine Urobilinogen Positive (Negative) H 05/10/22 00:15 Ur Leukocyte Esterase 1+ (Negative) H 05/10/22 00:15 Urine WBC (Auto) >30 /hpf (0-5) H 05/10/22 00:15 Urine RBC (Auto) 0-4 /hpf (0-4) 05/10/22 00:15 U Hyaline Cast (Auto) 1-5 /lpf (0-5) 05/10/22 00:15 U Epithel Cells (Auto) >30 /lpf (0-5) H 05/10/22 00:15 Urine Bacteria (Auto) 2+ (Negative) H 05/10/22 00:15 Urine Yeast Present (None Prsent) A 05/10/22 00:15 SARS-CoV-2, RNA, NAAT NEGATIVE (NEGATIVE) 05/10/22 02:40 Impressions Chest X-Ray 05/09/22 23:59 SINGLE VIEW CHEST CLINICAL HISTORY: Generalized weakness. FINDINGS: An AP, portable, upright chest radiograph is compared to study dated 09/24/2020. The heart is enlarged noting atherosclerotic calcification of the thoracic aorta. The pulmonary vasculature is noncongested. Chronic interstitial thickening is somewhat previous. The lungs and pleural spaces are clear noting mild bibasilar atelectasis. No pneumothorax is seen. The skeletal structures are osteopenic. The bony thorax is grossly intact. IMPRESSION: Cardiomegaly with no active disease in the chest. ACT 112: Negative or not required by law. Electronically signed by: Bravo Moe M.D. 05/10/2022 12:51 AM PG Care Time/CCT Total # of Minutes Spent Total Time Spent with Patient: Total time spent is greater than 50% in coordination of care (as documented) at patient's floor/unit and/or counseling patient: Coding Level of Care Code 21365 Initial Inpt Care Lvl 3 Diagnoses DM2 (diabetes mellitus, type 2) E11.9 Depression F32.9 GARRETT on CPAP G47.33; Z99.89 HTN (hypertension) I10 HLD (hyperlipidemia) E78.5 GERD (gastroesophageal reflux disease) K21.9
[2022-05-10] MEDS ORDERED: SODIUM CHLORIDE 0.9% 1000ML 1,000 ML IV ONE (04:33)
[2022-05-10] MEDS ORDERED: DOCUSATE SODIUM 100 MG CAP PO PRN (05:03)
[2022-05-10] MEDS ORDERED: MAGNESIUM SULFATE / D5W 1 GM/100 ML BAG IV ONE (05:03)
[2022-05-10] MEDS ORDERED: DEXTROSE 50% 50 ML SYRINGE IV PRN (05:03)
[2022-05-10] MEDS ORDERED: GLUCOSE 10 TAB/TUBE PO PRN (05:03)
[2022-05-10] MEDS ORDERED: GLUCAGON FOR INJ 1 MG VIAL SQ PRN (05:03)
[2022-05-10] MEDS ORDERED: POLYETHYLENE (MIRALAX) 17 GM PACK PO PRN (05:03)
[2022-05-10] MEDS ORDERED: ALBUTEROL HFA 8 GM INHALER INH PRN (05:03)
[2022-05-10] MEDS ORDERED: bisacodyL 10 MG SUPP PR PRN (05:03)
[2022-05-10] MEDS ORDERED: PHARMACY GLYCEMIC MGMT CONSULT PRN (05:03)
[2022-05-10] MEDS ORDERED: ONDANSETRON INJ 2 MG/ML 2 ML VIAL IV PRN (05:03)
[2022-05-10] MEDS ORDERED: GLUCOSE 40% GEL 15 GM TUBE PO PRN (05:03)
[2022-05-10] MEDS ORDERED: CARBOHYDRATES FOR HYPOGLYCEMIA PO PRN (05:03)
[2022-05-10] MEDS ORDERED: SODIUM CHLORIDE 0.9% 1000ML 1,000 ML IV SCH (05:03)
[2022-05-10] MEDS ORDERED: POTASSIUM CHLORIDE CRTAB 20 MEQ TABCR PO STA ×2 (05:03→14:55)
[2022-05-10] MEDS ORDERED: LANTUS PER UNIT CHARGE SQ SCH (05:30)
[2022-05-10] MEDS: INSULIN ASPART PER UNIT SC SCH ×4 (06:57→20:27)
--- NOTE | 2022-05-10 07:09 | Electrocardiogram Report ---
Test Reason : Blood Pressure : / mmHG Vent. Rate : 072 BPM Atrial Rate : 072 BPM P-R Int : 170 ms QRS Dur : 116 ms QT Int : 432 ms P-R-T Axes : 067 000 070 degrees QTc Int : 473 ms Normal sinus rhythm Nonspecific ST abnormality Abnormal ECG When compared with ECG of 24-SEP-2020 12:58, No significant change was found Confirmed by Henri Singer ([id number]) on 05/10/2022 7:08:39 AM Referred By: REFERRED SELF Confirmed By:Jorge Singer
[2022-05-10] MEDS: INSULIN HUMAN NPH SC SCH (08:52)
[2022-05-10] MEDS: nadoloL 40 MG TAB PO SCH (08:59)
[2022-05-10] MEDS: FAMOTIDINE 40 MG TABLET PO SCH (08:59)
[2022-05-10] MEDS: EZETIMIBE 10 MG TABLET PO SCH (08:59)
[2022-05-10] MEDS: lisinopril 2.5 MG TAB PO SCH (08:59)
[2022-05-10] MEDS: SERTRALINE HCL 50 MG TABLET PO SCH (08:59)
[2022-05-10] MEDS ORDERED: Flu Vaccine-High Dose (Fluzone-HD) PF 65+ 0.7mL SYR IM ONE (09:00)
--- NOTE | 2022-05-10 09:12 | Hospitalist Progress Note ---
Date of Service May 10, 2022 Assessment & Plan (1) DM2 (diabetes mellitus, type 2): Plan: Patient w/ DM II A1c most recently 7.5 presented to ER w/ a fall at home as she was unable to get up. BSG >500. Labs by visiting nrusing w/ renal insufficiency and dehydration. Also w/ weakness. Patient reported BSGs difficult to control for last 2 weeks and drinking lots of fluids at [facility]. Developed progressive weakness and had ground level fall this evening without head trauma or LOC. BSG was 592 when EMS arrived. Also feels constipated/bloated, passing gas but no good BM x 2 weeks. Typically on Humulin U-500, 130u breakfast, 20u lunch, trulicity 1.5mg weekly (fridays). BSGs 500s throughout the day over last 2 weeks BSG 553 on arrival to ER. After 500cc NSS and 10u IV insulin --> BSG 386 Given additional 1L NSS bolus, ordered NSS @ 125cc/hr x 2 liter. Will add 20meq K to IVF given K 3.2 (60meq PO also provided) No Anion Gap/DKA Lantus 12u BID BSG AC/HS BSGs in the 300s this morning Check A1c Repeating labs this afternoon to see about additional electrolyte replacement Glycemic consulted Discussed with pharmacy and given BSGs elevated to 400s again this afternoon, planning to initiate insulin gtt short term Consider observing patient's insulin injection technique to ensure effective delivery Also w/ poorly controlled BSGs/weakness, UA obtained and appears infected. Started ceftriaxone/monitor urine cx. Suspect infection causing more difficult to control blood sugars (2) UTI (urinary tract infection): Plan: UA appears infected Ceftriaxone IV monitor urine cx (3) Fall: Plan: fall w/o LOC/head trauma reported did report R knee/ankle pain following fall --> obtain xray for initial eval, but do not expect acute fracture, possible soft tissue/swelling, maybe small effusion R knee PT/OT consulted as from [facility] ([facility]) -- could possible [facility] (4) Right knee pain: Plan: xray ordered (5) Constipation: Plan: reported no BM in several days, no "good BM" in 2 weeks +BS on exam, nontender Check KUB to eval stool burden Added docusate 100mg BID, sennoside 8.6mg QAM Monitor bowels PT/OT consulted (6) Electrolyte abnormality: Plan: Replacement as outlined, continue to monitor labs (7) Chronic diastolic heart failure: Plan: Hx of chronic diastolic HF, follows with [facility], Adrianna Garcia. ECHO Jun 2020 LV wall thick/midly increased, LA mildy enlarged. LV diastolic function moderately abn (grade II). Compared to prior, grade II diastolic and pulm HTN Most recent note from March 2022 w/ reported 22lb weight gain, possible medication non-compliance as 17 pills in piill pack but only taking 6 She had at that time gained 22lb since last visit which was end of february at that time, reported most of the weight gain/edema occurred in past week w/ worsening SOb/abd bloating (R leg open/sore) Typically on lisinopril 2.5mg daily, nadolol daily, spironolactone 100mg daily, metolazone 5mg M// , additional as needed, torsemide 100mg daily (8) Depression: Plan: Chronic. Stable -Continue Duloxetine -Continue Sertraline (9) GARRETT on CPAP: Plan: Continue CPAP qHS (10) HTN (hypertension): Plan: Well controlled -Continue Lisinopril -Continue nadolol -Holding diuretics - Torsemide, Spironolactone, metolazone (11) HLD (hyperlipidemia): Plan: Chronic. Stable on medications -Continue Crestor -Continue zetia (12) GERD (gastroesophageal reflux disease): Plan: Chronic. Stable -Continue Omeprazole F/E/N - NSS at 125mL/hr x 2 liters, KCl 20Meq, Mg x 1gm, CC/AHA diet as tolerated Ppx - low risk for dvt Code - Full Dispo - Admit to medical Admission and Anticipated Discharge Date Admission Date: May 10, 2022 Subjective BRIDGE NOTE: ADMIT AFTER MIDNIGHT Patient seen this morning, on phone. Discussed insulin gtt for temporary, discussed UTI/abx. She states her primary symptoms she was having were weakness/low back pain. She did fall but no LOC/head trauma. Reporting R ankle/knee pain, req imaging. Prior R knee replacement. No fever/chills. Does have hx diastolic CHF, on diuretics daily. Weights get sent to cardiology office and she gets called if to take any extra metolazone. Denies any increased LE swelling, SOB, CP. Questions/concerns addressed at this time. Physical Exam Physical Exam: General: patient resting comfortably, NAD, non-toxic in appearance, AA&O x 4 Skin: warm, dry, intact, no rashes or lesions HEENT: NC/AT, PERRL, EOMI, anicteric sclera, conjunctiva without injection, external ear normal to inspection and nontender, nares patent, dry mucus membranes, dentition intact, no oropharyngeal lesions, neck supple, trachea midline, no LAD, no thyromegaly, no JVD Heart: +S1/S2, regular, no m/r/g Lungs: equal air entry bilaterally, no rales/rhonchi/wheezes Abd: +BS, soft, NT/ND, no masses/organomegaly/ascites Ext: warm, 2+ pulses in UE/LE bilaterally, no clubbing/cyanosis or edema, prior R knee replacement incsision well healed, possible small effusion, R medial ankle tenderness Neuro: nonfocal, patient AA&O x 4, speech intact, no facial droop, moving all extremities on command with equal strength 5/5 Results & Data Results & Data ([facility]) Vital Signs (Past 12 Hours) Vital Signs Temp Pulse Pulse Resp BP BP Pulse Ox 05/10/22 05:03 05/10/22 05:41 36.5 C 76 20 148/73 H 95 05/10/22 03:50 70 19 130/55 L 95 05/10/22 01:36 72 20 146/61 H 95 05/10/22 00:04 97 05/09/22 23:42 36.8 C 75 20 144/49 H 98 O2 Del Method 05/10/22 05:03 Room Air 05/10/22 05:41 Room Air 05/10/22 03:50 05/10/22 01:36 Room Air 05/10/22 00:04 Room Air 05/09/22 23:42 Room Air Laboratory Results 05/10/22 05/10/22 05/10/22 Range/Units 14:16 13:28 11:46 WBC (4.8-10.8) K/ul RBC (3.93-5.22) M/uL Hgb (12.0-16.0) g/dl Hct (34.1-44.9) % MCV (80.0-100.0) fL MCH (25.0-34.0) pg MCHC (32.0-36.0) g/dL RDW Std Deviation (36.4-46.3) fL RDW Coeff of Vanesa (11.5-14.5) % Plt Count (130-400) K/uL MPV (9.4-12.3) fL Immature Gran % (Auto) % Neut % (Auto) % Lymph % (Auto) % [place] % (Auto) % Eos % (Auto) % Baso % (Auto) % Neut # (Auto) (1.4-6.5) K/uL Lymph # (Auto) (1.2-3.4) K/uL [place] # (Auto) (0.24-0.82) K/uL Eos # (Auto) (0-0.50) K/uL Baso # (Auto) (0-0.2) K/uL Immature Gran # (Auto) (0.00-0.02) K/uL Sodium (136-145) mmol/L Potassium (3.5-5.1) mmol/L Chloride (98-107) mmol/L Carbon Dioxide (21-32) mmol/L Anion Gap (3-11) BUN (6-23) mg/dl Creatinine (0.6-1.2) mg/dl Est Cr Clr Drug Dosing ml/min Est GFR ( Amer) ml/min Est GFR (Non-Af Amer) ml/min BUN/Creatinine Ratio (10-20) Glucose (70-99(Fasting)) mg/dl POC Glucose 189 H 233 H 245 H (70-99) mg/dl Calcium (8.5-10.1) mg/dl Magnesium (1.7-2.4) mg/dl Total Bilirubin (0.2-1.0) mg/dl AST (13-39) U/L ALT (7-52) U/L Alkaline Phosphatase (34-104) U/L Total Protein (6.0-8.3) gm/dl Albumin (3.4-5.0) gm/dl Globulin (2.5-4.0) gm/dl Albumin/Globulin Ratio (0.9-2) TSH (0.300-4.500) uIu/ml Urine Color Urine Appearance (Clear) Urine pH (4.5-7.5) Ur Specific [place] (1.000-1.030) Urine Protein (Negative) Urine Glucose (UA) (Negative) Urine Ketones (Negative) Urine Blood (Negative) Urine Nitrite (Negative) Urine Bilirubin (Negative) Urine Urobilinogen (Negative) Ur Leukocyte Esterase (Negative) Urine WBC (Auto) (0-5) /hpf Urine RBC (Auto) (0-4) /hpf U Hyaline Cast (Auto) (0-5) /lpf U Epithel Cells (Auto) (0-5) /lpf Urine Bacteria (Auto) (Negative) Urine Yeast (None Prsent) Hepatitis C Ab (EIA) Hep C Ab Signal/Cutoff SARS-CoV-2, RNA, NAAT (NEGATIVE) 05/10/22 05/10/22 05/10/22 Range/Units 09:56 09:55 09:54 WBC (4.8-10.8) K/ul RBC (3.93-5.22) M/uL Hgb (12.0-16.0) g/dl Hct (34.1-44.9) % MCV (80.0-100.0) fL MCH (25.0-34.0) pg MCHC (32.0-36.0) g/dL RDW Std Deviation (36.4-46.3) fL RDW Coeff of Vanesa (11.5-14.5) % Plt Count (130-400) K/uL MPV (9.4-12.3) fL Immature Gran % (Auto) % Neut % (Auto) % Lymph % (Auto) % [place] % (Auto) % Eos % (Auto) % Baso % (Auto) % Neut # (Auto) (1.4-6.5) K/uL Lymph # (Auto) (1.2-3.4) K/uL [place] # (Auto) (0.24-0.82) K/uL Eos # (Auto) (0-0.50) K/uL Baso # (Auto) (0-0.2) K/uL Immature Gran # (Auto) (0.00-0.02) K/uL Sodium (136-145) mmol/L Potassium (3.5-5.1) mmol/L Chloride (98-107) mmol/L Carbon Dioxide (21-32) mmol/L Anion Gap (3-11) BUN (6-23) mg/dl Creatinine (0.6-1.2) mg/dl Est Cr Clr Drug Dosing ml/min Est GFR ( Amer) ml/min Est GFR (Non-Af Amer) ml/min BUN/Creatinine Ratio (10-20) Glucose (70-99(Fasting)) mg/dl POC Glucose 417 H* 400 H* 426 H* (70-99) mg/dl Calcium (8.5-10.1) mg/dl Magnesium (1.7-2.4) mg/dl Total Bilirubin (0.2-1.0) mg/dl AST (13-39) U/L ALT (7-52) U/L Alkaline Phosphatase (34-104) U/L Total Protein (6.0-8.3) gm/dl Albumin (3.4-5.0) gm/dl Globulin (2.5-4.0) gm/dl Albumin/Globulin Ratio (0.9-2) TSH (0.300-4.500) uIu/ml Urine Color Urine Appearance (Clear) Urine pH (4.5-7.5) Ur Specific [place] (1.000-1.030) Urine Protein (Negative) Urine Glucose (UA) (Negative) Urine Ketones (Negative) Urine Blood (Negative) Urine Nitrite (Negative) Urine Bilirubin (Negative) Urine Urobilinogen (Negative) Ur Leukocyte Esterase (Negative) Urine WBC (Auto) (0-5) /hpf Urine RBC (Auto) (0-4) /hpf U Hyaline Cast (Auto) (0-5) /lpf U Epithel Cells (Auto) (0-5) /lpf Urine Bacteria (Auto) (Negative) Urine Yeast (None Prsent) Hepatitis C Ab (EIA) Hep C Ab Signal/Cutoff SARS-CoV-2, RNA, NAAT (NEGATIVE) 05/10/22 05/10/22 05/10/22 Range/Units 07:28 07:27 06:49 WBC (4.8-10.8) K/ul RBC (3.93-5.22) M/uL Hgb (12.0-16.0) g/dl Hct (34.1-44.9) % MCV (80.0-100.0) fL MCH (25.0-34.0) pg MCHC (32.0-36.0) g/dL RDW Std Deviation (36.4-46.3) fL RDW Coeff of Vanesa (11.5-14.5) % Plt Count (130-400) K/uL MPV (9.4-12.3) fL Immature Gran % (Auto) % Neut % (Auto) % Lymph % (Auto) % [place] % (Auto) % Eos % (Auto) % Baso % (Auto) % Neut # (Auto) (1.4-6.5) K/uL Lymph # (Auto) (1.2-3.4) K/uL [place] # (Auto) (0.24-0.82) K/uL Eos # (Auto) (0-0.50) K/uL Baso # (Auto) (0-0.2) K/uL Immature Gran # (Auto) (0.00-0.02) K/uL Sodium (136-145) mmol/L Potassium (3.5-5.1) mmol/L Chloride (98-107) mmol/L Carbon Dioxide (21-32) mmol/L Anion Gap (3-11) BUN (6-23) mg/dl Creatinine (0.6-1.2) mg/dl Est Cr Clr Drug Dosing ml/min Est GFR ( Amer) ml/min Est GFR (Non-Af Amer) ml/min BUN/Creatinine Ratio (10-20) Glucose (70-99(Fasting)) mg/dl POC Glucose 367 H* 357 H* 359 H* (70-99) mg/dl Calcium (8.5-10.1) mg/dl Magnesium (1.7-2.4) mg/dl Total Bilirubin (0.2-1.0) mg/dl AST (13-39) U/L ALT (7-52) U/L Alkaline Phosphatase (34-104) U/L Total Protein (6.0-8.3) gm/dl Albumin (3.4-5.0) gm/dl Globulin (2.5-4.0) gm/dl Albumin/Globulin Ratio (0.9-2) TSH (0.300-4.500) uIu/ml Urine Color Urine Appearance (Clear) Urine pH (4.5-7.5) Ur Specific [place] (1.000-1.030) Urine Protein (Negative) Urine Glucose (UA) (Negative) Urine Ketones (Negative) Urine Blood (Negative) Urine Nitrite (Negative) Urine Bilirubin (Negative) Urine Urobilinogen (Negative) Ur Leukocyte Esterase (Negative) Urine WBC (Auto) (0-5) /hpf Urine RBC (Auto) (0-4) /hpf U Hyaline Cast (Auto) (0-5) /lpf U Epithel Cells (Auto) (0-5) /lpf Urine Bacteria (Auto) (Negative) Urine Yeast (None Prsent) Hepatitis C Ab (EIA) Hep C Ab Signal/Cutoff SARS-CoV-2, RNA, NAAT (NEGATIVE) 05/10/22 05/10/22 05/10/22 Range/Units 06:00 06:00 05:59 WBC (4.8-10.8) K/ul RBC (3.93-5.22) M/uL Hgb (12.0-16.0) g/dl Hct (34.1-44.9) % MCV (80.0-100.0) fL MCH (25.0-34.0) pg MCHC (32.0-36.0) g/dL RDW Std Deviation (36.4-46.3) fL RDW Coeff of [place]anesa (11.5-14.5) % Plt Count (130-400) K/uL MPV (9.4-12.3) fL Immature Gran % (Auto) % Neut % (Auto) % Lymph % (Auto) % [place] % (Auto) % Eos % (Auto) % Baso % (Auto) % Neut # (Auto) (1.4-6.5) K/uL Lymph # (Auto) (1.2-3.4) K/uL [place] # (Auto) (0.24-0.82) K/uL Eos # (Auto) (0-0.50) K/uL Baso # (Auto) (0-0.2) K/uL Immature Gran # (Auto) (0.00-0.02) K/uL Sodium 134 L (136-145) mmol/L Potassium 3.0 L (3.5-5.1) mmol/L Chloride 94 L (98-107) mmol/L Carbon Dioxide 32 (21-32) mmol/L Anion Gap 8 (3-11) BUN 35 H (6-23) mg/dl Creatinine 1.06 (0.6-1.2) mg/dl Est Cr Clr Drug Dosing 67.4 ml/min Est GFR ( Amer) 62.9 ml/min Est GFR (Non-Af Amer) 54.3 ml/min BUN/Creatinine Ratio 33.0 H (10-20) Glucose 362 H* (70-99(Fasting)) mg/dl POC Glucose (70-99) mg/dl Calcium 9.6 (8.5-10.1) mg/dl Magnesium 1.9 Cancelled (1.7-2.4) mg/dl Total Bilirubin (0.2-1.0) mg/dl AST (13-39) U/L ALT (7-52) U/L Alkaline Phosphatase (34-104) U/L Total Protein (6.0-8.3) gm/dl Albumin (3.4-5.0) gm/dl Globulin (2.5-4.0) gm/dl Albumin/Globulin Ratio (0.9-2) TSH (0.300-4.500) uIu/ml Urine Color Urine Appearance (Clear) Urine pH (4.5-7.5) Ur Specific [place] (1.000-1.030) Urine Protein (Negative) Urine Glucose (UA) (Negative) Urine Ketones (Negative) Urine Blood (Negative) Urine Nitrite (Negative) Urine Bilirubin (Negative) Urine Urobilinogen (Negative) Ur Leukocyte Esterase (Negative) Urine WBC (Auto) (0-5) /hpf Urine RBC (Auto) (0-4) /hpf U Hyaline Cast (Auto) (0-5) /lpf U Epithel Cells (Auto) (0-5) /lpf Urine Bacteria (Auto) (Negative) Urine Yeast (None Prsent) Hepatitis C Ab (EIA) Pending Hep C Ab Signal/Cutoff Pending SARS-CoV-2, RNA, NAAT (NEGATIVE) 05/10/22 05/10/22 05/10/22 Range/Units 05:56 03:53 02:40 WBC (4.8-10.8) K/ul RBC (3.93-5.22) M/uL Hgb (12.0-16.0) g/dl Hct (34.1-44.9) % MCV (80.0-100.0) fL MCH (25.0-34.0) pg MCHC (32.0-36.0) g/dL RDW Std Deviation (36.4-46.3) fL RDW Coeff of [place] (11.5-14.5) % Plt Count (130-400) K/uL MPV (9.4-12.3) fL Immature Gran % (Auto) % Neut % (Auto) % Lymph % (Auto) % [place] % (Auto) % Eos % (Auto) % Baso % (Auto) % Neut # (Auto) (1.4-6.5) K/uL Lymph # (Auto) (1.2-3.4) K/uL [place] # (Auto) (0.24-0.82) K/uL Eos # (Auto) (0-0.50) K/uL Baso # (Auto) (0-0.2) K/uL Immature Gran # (Auto) (0.00-0.02) K/uL Sodium (136-145) mmol/L Potassium (3.5-5.1) mmol/L Chloride (98-107) mmol/L Carbon Dioxide (21-32) mmol/L Anion Gap (3-11) BUN (6-23) mg/dl Creatinine (0.6-1.2) mg/dl Est Cr Clr Drug Dosing ml/min Est GFR ( Amer) ml/min Est GFR (Non-Af Amer) ml/min BUN/Creatinine Ratio (10-20) Glucose (70-99(Fasting)) mg/dl POC Glucose 386 H* (70-99) mg/dl Calcium (8.5-10.1) mg/dl Magnesium 1.7 (1.7-2.4) mg/dl Total Bilirubin (0.2-1.0) mg/dl AST (13-39) U/L ALT (7-52) U/L Alkaline Phosphatase (34-104) U/L Total Protein (6.0-8.3) gm/dl Albumin (3.4-5.0) gm/dl Globulin (2.5-4.0) gm/dl Albumin/Globulin Ratio (0.9-2) TSH (0.300-4.500) uIu/ml Urine Color Urine Appearance (Clear) Urine pH (4.5-7.5) Ur Specific [place] (1.000-1.030) Urine Protein (Negative) Urine Glucose (UA) (Negative) Urine Ketones (Negative) Urine Blood (Negative) Urine Nitrite (Negative) Urine Bilirubin (Negative) Urine Urobilinogen (Negative) Ur Leukocyte Esterase (Negative) Urine WBC (Auto) (0-5) /hpf Urine RBC (Auto) (0-4) /hpf U Hyaline Cast (Auto) (0-5) /lpf U Epithel Cells (Auto) (0-5) /lpf Urine Bacteria (Auto) (Negative) Urine Yeast (None Prsent) Hepatitis C Ab (EIA) Hep C Ab Signal/Cutoff SARS-CoV-2, RNA, NAAT NEGATIVE (NEGATIVE) 05/10/22 05/10/22 05/10/22 Range/Units 00:21 00:21 00:21 WBC 7.90 (4.8-10.8) K/ul RBC 4.65 (3.93-5.22) M/uL Hgb 14.3 (12.0-16.0) g/dl Hct 40.5 (34.1-44.9) % MCV 87.1 (80.0-100.0) fL MCH 30.8 (25.0-34.0) pg MCHC 35.3 (32.0-36.0) g/dL RDW Std Deviation 45.0 (36.4-46.3) fL RDW Coeff of [place] 14.2 (11.5-14.5) % Plt Count 136 (130-400) K/uL MPV 12.8 H (9.4-12.3) fL Immature Gran % (Auto) 0.3 % Neut % (Auto) 42.4 % Lymph % (Auto) 37.1 % [place] % (Auto) 17.1 % Eos % (Auto) 2.5 % Baso % (Auto) 0.6 % Neut # (Auto) 3.35 (1.4-6.5) K/uL Lymph # (Auto) 2.93 (1.2-3.4) K/uL [place] # (Auto) 1.35 H (0.24-0.82) K/uL Eos # (Auto) 0.20 (0-0.50) K/uL Baso # (Auto) 0.05 (0-0.2) K/uL Immature Gran # (Auto) 0.02 (0.00-0.02) K/uL Sodium 130 L (136-145) mmol/L Potassium 3.2 L (3.5-5.1) mmol/L Chloride 90 L (98-107) mmol/L Carbon Dioxide 30 (21-32) mmol/L Anion Gap 10 (3-11) BUN 38 H (6-23) mg/dl Creatinine 1.19 (0.6-1.2) mg/dl Est Cr Clr Drug Dosing 60.9 ml/min Est GFR ( Amer) 54.7 ml/min Est GFR (Non-Af Amer) 47.2 ml/min BUN/Creatinine Ratio 31.9 H (10-20) Glucose 553 H* (70-99(Fasting)) mg/dl POC Glucose (70-99) mg/dl Calcium 9.7 (8.5-10.1) mg/dl Magnesium (1.7-2.4) mg/dl Total Bilirubin 1.9 H (0.2-1.0) mg/dl AST 37 (13-39) U/L ALT 23 (7-52) U/L Alkaline Phosphatase 78 (34-104) U/L Total Protein 7.4 (6.0-8.3) gm/dl Albumin 3.0 L (3.4-5.0) gm/dl Globulin 4.4 H (2.5-4.0) gm/dl Albumin/Globulin Ratio 0.7 L (0.9-2) TSH 3.489 (0.300-4.500) uIu/ml Urine Color Urine Appearance (Clear) Urine pH (4.5-7.5) Ur Specific [place] (1.000-1.030) Urine Protein (Negative) Urine Glucose (UA) (Negative) Urine Ketones (Negative) Urine Blood (Negative) Urine Nitrite (Negative) Urine Bilirubin (Negative) Urine Urobilinogen (Negative) Ur Leukocyte Esterase (Negative) Urine WBC (Auto) (0-5) /hpf Urine RBC (Auto) (0-4) /hpf U Hyaline Cast (Auto) (0-5) /lpf U Epithel Cells (Auto) (0-5) /lpf Urine Bacteria (Auto) (Negative) Urine Yeast (None Prsent) Hepatitis C Ab (EIA) Hep C Ab Signal/Cutoff SARS-CoV-2, RNA, NAAT (NEGATIVE) 05/10/22 05/09/22 Range/Units 00:15 23:39 WBC (4.8-10.8) K/ul RBC (3.93-5.22) M/uL Hgb (12.0-16.0) g/dl Hct (34.1-44.9) % MCV (80.0-100.0) fL MCH (25.0-34.0) pg MCHC (32.0-36.0) g/dL RDW Std Deviation (36.4-46.3) fL RDW Coeff of [place] (11.5-14.5) % Plt Count (130-400) K/uL MPV (9.4-12.3) fL Immature Gran % (Auto) % Neut % (Auto) % Lymph % (Auto) % [place] % (Auto) % Eos % (Auto) % Baso % (Auto) % Neut # (Auto) (1.4-6.5) K/uL Lymph # (Auto) (1.2-3.4) K/uL [place] # (Auto) (0.24-0.82) K/uL Eos # (Auto) (0-0.50) K/uL Baso # (Auto) (0-0.2) K/uL Immature Gran # (Auto) (0.00-0.02) K/uL Sodium (136-145) mmol/L Potassium (3.5-5.1) mmol/L Chloride (98-107) mmol/L Carbon Dioxide (21-32) mmol/L Anion Gap (3-11) BUN (6-23) mg/dl Creatinine (0.6-1.2) mg/dl Est Cr Clr Drug Dosing ml/min Est GFR ( Amer) ml/min Est GFR (Non-Af Amer) ml/min BUN/Creatinine Ratio (10-20) Glucose (70-99(Fasting)) mg/dl POC Glucose 539 H* (70-99) mg/dl Calcium (8.5-10.1) mg/dl Magnesium (1.7-2.4) mg/dl Total Bilirubin (0.2-1.0) mg/dl AST (13-39) U/L ALT (7-52) U/L Alkaline Phosphatase (34-104) U/L Total Protein (6.0-8.3) gm/dl Albumin (3.4-5.0) gm/dl Globulin (2.5-4.0) gm/dl Albumin/Globulin Ratio (0.9-2) TSH (0.300-4.500) uIu/ml Urine Color Yellow Urine Appearance Clear (Clear) Urine pH 7.0 (4.5-7.5) Ur Specific [place] 1.029 (1.000-1.030) Urine Protein Negative (Negative) Urine Glucose (UA) 3+ H (Negative) Urine Ketones Negative (Negative) Urine Blood Negative (Negative) Urine Nitrite Negative (Negative) Urine Bilirubin Negative (Negative) Urine Urobilinogen Positive H (Negative) Ur Leukocyte Esterase 1+ H (Negative) Urine WBC (Auto) >30 H (0-5) /hpf Urine RBC (Auto) 0-4 (0-4) /hpf U Hyaline Cast (Auto) 1-5 (0-5) /lpf U Epithel Cells (Auto) >30 H (0-5) /lpf Urine Bacteria (Auto) 2+ H (Negative) Urine Yeast Present A (None Prsent) Hepatitis C Ab (EIA) Hep C Ab Signal/Cutoff SARS-CoV-2, RNA, NAAT (NEGATIVE) PG Care Time/CCT Total # of Minutes Spent Total Time Spent with Patient: Total time spent is greater than 50% in coordination of care (as documented) at patient's floor/unit and/or counseling patient: Coding Level of Care Code None Diagnoses DM2 (diabetes mellitus, type 2) E11.9 UTI (urinary tract infection) N39.0 Fall W19.XXXA Right knee pain M25.561 Constipation K59.00 Electrolyte abnormality E87.8 Chronic diastolic heart failure I50.32 Depression F32.9 GARRETT on CPAP G47.33; Z99.89 HTN (hypertension) I10 HLD (hyperlipidemia) E78.5 GERD (gastroesophageal reflux disease) K21.9
[2022-05-10] MEDS: NSS + 20MEQ KCL 20 MEQ/1,000 ML BAG IV SCH ×2 (09:30→17:00)
[2022-05-10] MEDS: DOCUSATE SODIUM 100 MG CAP PO SCH ×2 (09:36→20:36)
[2022-05-10] MEDS: SENNA 8.6 MG TAB PO SCH (09:47)
[2022-05-10] MEDS ORDERED: INSULIN HUMAN REGULAR PER UNIT 10 UNITS in SYRINGE 0 ML IV STA (09:57)
[2022-05-10] MEDS ORDERED: INSULIN PROTOCOL GOAL RANGE ONE (10:16)
[2022-05-10] MEDS ORDERED: STAT IV STA (10:16)
[2022-05-10] MEDS ORDERED: SEVERE STRESS LEVEL ONE (10:16)
[2022-05-10] MEDS ORDERED: INSULIN HUMAN REGULAR IV BOLUS 4.5 UNITS in SYRINGE 0 ML IV ONE (10:30)
[2022-05-10] MEDS ORDERED: INSULIN REGULAR 250 UNITS in SODIUM CHLORIDE 0.9% 247.5 ML IV SCH (10:30)
[2022-05-10 11:05] LABS: Calcium 9.6 mg/dl (8.5-10.1); Creatinine Clr Calc Pharmacy 67.4 ml/min; Est GFR (African American) 62.9 ml/min; Est GFR (Non-African American) 54.3 ml/min; Magnesium 1.9 mg/dl (1.7-2.4)
[2022-05-10] MEDS ORDERED: INSULIN ASPART PER UNIT SC SCH (11:30)
[2022-05-10] MEDS ORDERED: INSULIN ASPART PER UNIT SC ONE (12:15)
--- NOTE | 2022-05-10 15:03 | Pharmacy Report ---
Pharmacy Glycemic Short Note 2 - Date of Service May 10, 2022 - Glycemic Short BSG Results (Last 24 hours): 05/09/22 05/10/22 05/10/22 23:39 00:21 03:53 Glucose 553 H* POC Glucose 539 H* 386 H* 05/10/22 05/10/22 05/10/22 06:00 06:49 07:27 Glucose 362 H* POC Glucose 359 H* 357 H* 05/10/22 05/10/22 05/10/22 07:28 09:54 09:55 Glucose POC Glucose 367 H* 426 H* 400 H* 05/10/22 05/10/22 05/10/22 09:56 11:46 13:28 Glucose POC Glucose 417 H* 245 H 233 H 05/10/22 14:16 Glucose POC Glucose 189 H OUTPATIENT ANTIDIABETIC REGIMEN: * u-500 insulin 130 units SC AM and 20 units SC qPM (~@3pm) * Trulicity 4.5 mg SC weekly (Fridays) HbA1c: 7.5% (12/12/21) ASSESSMENT: * EW is a 67 year old female who presented overnight with progressive weakness and persistent hyperglycemia * BSG > 500 mg/dL on presentation, attempted to manage with SC basal/bolus + IV bolus x 1, but this was unsuccessful * In light of persistent hyperglycemia, short-term insulin infusion initiated this morning * BSGs trended down nicely 417 -> 245 -> 189 mg/dL, will discontinue insulin infusion at 1530 today * Since outpatient U-500 is dosed BID, will attempt to utilize NPH insulin BIDM in place of the higher risk medication * ~50% of home dose in form of NPH + weight-based/stress of 2.5 dosing of Novolog PLAN FOR INPATIENT GLYCEMIC CONTROL: * Basal insulin * NPH 65 units SQ x 1 this morning * NPH 0-15 units SC x 1 this evening with dinner * Bolus insulin * NovoLog per scale ACHS or Q6hrs while NPO * Goal Range: Low 110 mg/dL - High 140 mg/dL * Correction Factor: 15 mg/dL/unit * Nutritional / Prandial insulin per carb ratio of 1 unit per 5 grams CHO consumed
--- NOTE | 2022-05-10 15:23 | XRay Report ---
XR KUB/Abdomen 1 view CLINICAL HISTORY: weakness, eval constipation TECHNIQUE: 1 view of the abdomen was obtained. Comparison: Comparison is made to abdomen radiograph 02/01/2017 FINDINGS: Exam is limited by underpenetration. The osseous structures are grossly unremarkable. The bowel gas p attern is nonobstructive. Small stool burden is seen. IMPRESSION: Limited exam due to underpenetration. Small stool burden is seen without evidence of fecal impaction. ACT 112: Negative or not required by law. Electronically signed by: Frank Hung M.D. 05/10/2022 3:22 PM
--- NOTE | 2022-05-10 15:31 | XRay Report ---
XR ankle RT min 3V routine CLINICAL HISTORY: s/p fall, ankle pain TECHNIQUE: 3 views of the right ankle were obtained. Comparison: None available at the time of this dictation. FINDINGS: An old irregularity of the lateral aspect of the distal tibia is noted. Degenerative changes are seen . Plantar and Achilles enthesophytes are seen. The ankle mortise is intact. Soft tissue swelling is s een about the ankle. IMPRESSION: Soft tissue swelling is seen about the joint without evidence of underlying acute fracture. 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 Degenerative changes are noted. ACT 112: Negative or not required by law. Electronically signed by: Frank Hung M.D. 05/10/2022 3:29 PM
--- NOTE | 2022-05-10 15:31 | XRay Report ---
XR knee RT 3V CLINICAL HISTORY: s/p fall, knee pain TECHNIQUE: 3 views of the right knee were obtained. Comparison: None available at the time of this dictation. FINDINGS: Patient is status post total right arthroplasty. No evidence of perihardware lucency or hardware frac ture. There may be a small suprapatellar effusion. No soft tissue abnormality is seen. IMPRESSION: Possible small suprapatellar effusion. No evidence of acute fracture. ACT 112: Negative or not required by law. Electronically signed by: Frank Hung M.D. 05/10/2022 3:30 PM
[2022-05-10 15:59] LABS: BUN Creatinine Ratio 32.6 (10-20); Creatinine Clr Calc Pharmacy 77.6 ml/min; Est GFR (African American) 74.7 ml/min; Est GFR (Non-African American) 64.4 ml/min; Potassium 3.6 mmol/L (3.5-5.1)
[2022-05-10] MEDS ORDERED: INSULIN HUMAN NPH SC SCH (17:00)
[2022-05-10] MEDS: ROSUVASTATIN CALCIUM 20 MG TAB PO SCH (20:35)
[2022-05-10] MEDS: DULoxetine HCL 60 MG CAP PO SCH (20:36)
[2022-05-10] MEDS: ACETAMINOPHEN 325 MG TAB PO PRN (20:36)
[2022-05-11] MEDS: ACETAMINOPHEN 325 MG TAB PO PRN ×2 (02:14→23:07)
[2022-05-11] MEDS: cefTRIAXone SODIUM 2,000 MG in DEXTROSE 5% 50 ML IV SCH (05:08)
[2022-05-11 07:04] LABS: Hematocrit (blood only) 36.7 % (34.1-44.9); Hemoglobin 12.7 g/dl (12.0-16.0); Mean Corpuscular Hemoglobin 30.2 pg (25.0-34.0); Mean Corpuscular Hgb Conc 34.6 g/dL (32.0-36.0); Mean Corpuscular Volume 87.2 fL (80.0-100.0); Mean Platelet Volume 12.2 fL (9.4-12.3); Platelet Count 120 K/uL (130-400); RDW Coefficient of Variation 14.1 % (11.5-14.5); RDW Standard Deviation 44.4 fL (36.4-46.3); Red Blood Count 4.21 M/uL (3.93-5.22); White Blood Count 7.33 K/ul (4.8-10.8)
[2022-05-11 07:27] LABS: Albumin Level 2.7 gm/dl (3.4-5.0); BUN Creatinine Ratio 32.9 (10-20); Bilirubin Direct 0.3 mg/dl (0-0.2); Bilirubin,Total 1.4 mg/dl (0.2-1.0); Calcium 8.8 mg/dl (8.5-10.1); Creatinine Clr Calc Pharmacy 93.9 ml/min; Est GFR (African American) 94.1 ml/min; Est GFR (Non-African American) 81.2 ml/min; Potassium 4.1 mmol/L (3.5-5.1); Total Protein 6.3 gm/dl (6.0-8.3)
--- NOTE | 2022-05-11 07:50 | Hospitalist Progress Note ---
Date of Service May 11, 2022 Assessment & Plan (1) DM2 (diabetes mellitus, type 2): Plan: Patient w/ DM II A1c most recently 7.5 presented to ER w/ a fall at home as she was unable to get up. BSG >500. Labs by visiting nrusing w/ renal insufficiency and dehydration. Also w/ weakness. Patient reported BSGs difficult to control for last 2 weeks and drinking lots of fluids at residential. Developed progressive weakness and had ground level fall this evening without head trauma or LOC. BSG was 592 when EMS arrived. Also feels constipated/bloated, passing gas but no good BM x 2 weeks. Typically on Humulin U-500, 130u breakfast, 20u lunch, Trulicity 1.5mg weekly (Fridays). BSGs 500s throughout the day over last 2 weeks. Recent PCP notes w/ malaise/polypharmacy. Weaned off sertaline, then nortiptyline. BSG 553 on arrival to ER. After 500cc NSS and 10u IV insulin --> BSG 386 Given additional 1L NSS bolus, ordered NSS @ 125cc/hr x 2 liter. Added K to IVF and additional PO replacement ordered while placed on insulin gtt 05/10 for continued elevations in BSGs to 3-400s No anion gap/DKA Pharmacy on consult for glycemic control With additional 1L IVF/insulin gtt 05/10, BSGs into 189 or less since afternoon 05/10 Continues on Insulin NPH 65u SC daily, ISS AC/HS currently A1c pending -- as weekend, may not have results until tomorrow ?med noncompliance vs elevated A1c, uncontrolled sugars in setting of likely UTI Continue to monitor sugars/ SSI adjustment as needed (2) Fall: Plan: fall w/o LOC/head trauma reported, admitted with BSGs in 400-500s did report R knee/ankle pain following fall --> obtain xray for initial eval, but do not expect acute fracture, possible soft tissue/swelling, maybe small effusion R knee PT/OT consulted as from [facility] -- could possible [facility] Of report, patient did have some possible RIGHT SIDED facial droop vs. Victoria Palsy -- check Lyme. Of note, reports NOT acute, present since over a year prior MRI in 2019, however would have been >1 year, family hx strokes/mass --> check MRI for completeness for other eval of weakness --> speech consult ordered given reports dysphagia by family member -- was to have "dilation" but cancelled due to being ill. --> diet changed to slipper diet with thin liquids, aspiration and reflux precautions. Also placing on telemetry to look for any arrhythmias Also checking lumbar spine xray given low back pain/LE weakness Check ECHO for possible worsening EF contributing to rapid weight gain, no obvious murmur on exam (3) Chronic diastolic heart failure: Plan: Hx of chronic diastolic HF, follows with [facility], Adrianna Garcia. ECHO Jun 2020 LV wall thick/midly increased, LA mildy enlarged. LV diastolic function moderately abn (grade II). Compared to prior, grade II diastolic and pulm HTN ECHO February 2022 in notes w/ LV 60-64%, mild aortic valve sclerosis, grade I diastolic dysfunction Most recent note from March 2022 w/ reported 22lb weight gain, possible medication non-compliance as 17 pills in piill pack but only taking 6 She had at that time gained 22lb since last visit which was end of february-- patient reported most of the weight gain/edema occurred in past week w/ worsening SOb/abd bloating (R leg open/sore) Typically on lisinopril 2.5mg daily, nadolol daily, spironolactone 100mg daily, metolazone 5mg M// ( additional as needed based on weights), torsemide 100mg daily Prior also on lasix 80mg 3x/week per PCP notes --> weight fluctuations from 281/297lb, can lose 17lb in a day (likely from the metolazone if true), reported tremors/trouble with coordination/fingers getting locked up Does not appear volume overloaded currently, DEHYDRATED, but IMPROVED Suspect metolazone causing significant electrolyte abnormalities at home given K 3 on admit -- placing on tele monitor to look for any arrhythmias Diuretics on hold for dehydration on admission, improving -- still slightly dehydrated on exam but avoid additional IVF to prevent volume overload Current weight 273lb (was 285lb at visit in February, 307lb in March 2022) Repeating ECHO for rapid weight gain/weakness, however patient with non- compliance issues at times w/ meds at home as well -- suspect over diuresis Consult cards for Am, [facility], as patient will need adjustments/close follow up. Also recommended she take her scale at home with her to f/u visit to ensure obtaining accurate weights as they base prn dosing metolazone on that and patient likely with significant electrolyte abn following and would rec routine labs if resuming to ensure no replacment needed during that time. Previously on [facility] at home but was d/c due to stability. Suspect would be good candidate to resume Monitor intake/output, I&O (4) UTI (urinary tract infection): Plan: UA appears infected Ceftriaxone IV (day 2) monitor urine cx -- pending --> normal jeffy, but did appear w/ sx - will continue abx/repeat culture (5) Right knee pain: Plan: xray ordered -- effusion, pain control (6) Constipation: Plan: reported no BM in several days, no "good BM" in 2 weeks +BS on exam, nontender Check KUB to eval stool burden -- no significant constipation --> moving bowels. +BM good BM this morning. suspect dehydration from diuretics had been contributing Continue bowel regimen PT/OT consulted (7) Electrolyte abnormality: Plan: Replacement as outlined, continue to monitor labs -- improved, no further hypokalemia. suspect from insulin use for her blood sugars (8) Depression: Plan: Chronic. Stable Continue Duloxetine Continue Sertraline (9) GARRETT on CPAP: Plan: Continue CPAP qHS -- encouraged compliance (10) HTN (hypertension): Plan: Well controlled -Continue Lisinopril -Continue nadolol -Holding diuretics - Torsemide, Spironolactone, metolazone for now, not overloaded on exam (11) HLD (hyperlipidemia): Plan: Chronic. Stable on medications -Continue Crestor -Continue zetia (12) GERD (gastroesophageal reflux disease): Plan: Chronic. Stable -Continue Omeprazole (13) Low back pain: Plan: check lumbar spine xray repeat urine cx pain control -- lidocaine patch ordered Admission and Anticipated Discharge Date Admission Date: May 10, 2022 Subjective Patient evaluated this morning. Sitting up in chair. Discussed BSGs improved. Wondering about her weakness though in her legs. Does have low back pain across her lumbar spine. Will order lidocaine patch/xray to see if any lumbar issues contributing to weakness or if rather from UTI. Still appears a little dehydrated on exam, pushing oral fluids. Did have large solid BM last evening per her report and continues on laxatives. Continuing to hold diuretics for now, no increased edema in her legs or shortness of breath reported. Remains on room air. Does have some medication compliance issues but states she tries to take the important ones. Family history of stroke/aneursym in mother. Patient did report issues with dysphagia to liquids and solid foods at times but depending on what she eats. She states has been occuring for at least a year, does have occassional flashes of light in her eyes. Denies palpitations but upon further questioning she does feel that her heart is racing when she is ambulating with shortness of breath. N o hx afib, not on aspirin or other blood thinner. Will place on monitor and CT head, also add Lyme to labs for a possible Victoria Palsy from Lyme. Patient denies ever being positive for lyme in the past or treatment for such. Review of Systems Review of Systems: All systems reviewed & are unremarkable except as noted in HPI & below Physical Exam Physical Exam: General: patient resting comfortably, sitting up in recliner NAD, non-toxic in appearance, AA&O x 4 HEENT: head normocephalic, atraumatic, thick neck, no JVD, mm still slighty dry (pushing fluids, improved from yesterday) Resp: CTAB, diminished in the bases, no w/c 95% on RA CV: RRR, no m/r/g, no pitting edema or calf tenderness GI: +BS, distended, nontender : no farley MSK/Neuro: moves all extremities, decreased strength b/l LE 3-4/5 with extension/flexion, finger to nose testing normal, no nystagmus R medial ankle tenderness, R knee incision well healed CN intact grossly --> exception appears possible slight bells palsy on the RIGHT vs facial droop (reported present for a year at least) tenderness to palpation along musculature lower back, no camden step off appreciated or hematoma/rash Psych: AOx3, pleasant and cooperative Skin: warm, dry Results & Data Results & Data ([facility]) Vital Signs (Past 12 Hours) Vital Signs Temp Pulse Resp BP Pulse Ox O2 Del Method 05/11/22 07:03 36.8 C 75 16 134/72 94 Room Air 05/11/22 07:05 Room Air 05/11/22 03:23 Room Air 05/11/22 00:15 Room Air 05/10/22 22:45 36.6 C 71 18 114/65 95 Room Air Laboratory Results 05/11/22 05/11/22 05/11/22 Range/Units 07:31 05:59 05:59 WBC (4.8-10.8) K/ul RBC (3.93-5.22) M/uL Hgb (12.0-16.0) g/dl Hct (34.1-44.9) % MCV (80.0-100.0) fL MCH (25.0-34.0) pg MCHC (32.0-36.0) g/dL RDW Std Deviation (36.4-46.3) fL RDW Coeff of Vanesa (11.5-14.5) % Plt Count (130-400) K/uL MPV (9.4-12.3) fL Sodium 136 (136-145) mmol/L Potassium 4.1 (3.5-5.1) mmol/L Chloride 103 (98-107) mmol/L Carbon Dioxide 29 (21-32) mmol/L Anion Gap 4 (3-11) BUN 25 H (6-23) mg/dl Creatinine 0.76 (0.6-1.2) mg/dl Est Cr Clr Drug Dosing 93.9 ml/min Est GFR ( Amer) 94.1 ml/min Est GFR (Non-Af Amer) 81.2 ml/min BUN/Creatinine Ratio 32.9 H (10-20) Glucose 172 H (70-99(Fasting)) mg/dl POC Glucose 152 H (70-99) mg/dl Estimat Average Glucose Pending Hemoglobin A1c Pending Calcium 8.8 (8.5-10.1) mg/dl Magnesium Total Bilirubin 1.4 H (0.2-1.0) mg/dl Direct Bilirubin 0.3 H (0-0.2) mg/dl AST 34 (13-39) U/L ALT 20 (7-52) U/L Alkaline Phosphatase 65 (34-104) U/L Total Protein 6.3 (6.0-8.3) gm/dl Albumin 2.7 L (3.4-5.0) gm/dl 05/11/22 05/10/22 05/10/22 Range/Units 05:59 20:22 16:31 WBC 7.33 (4.8-10.8) K/ul RBC 4.21 (3.93-5.22) M/uL Hgb 12.7 (12.0-16.0) g/dl Hct 36.7 (34.1-44.9) % MCV 87.2 (80.0-100.0) fL MCH 30.2 (25.0-34.0) pg MCHC 34.6 (32.0-36.0) g/dL RDW Std Deviation 44.4 (36.4-46.3) fL RDW Coeff of Vanesa 14.1 (11.5-14.5) % Plt Count 120 L (130-400) K/uL MPV 12.2 (9.4-12.3) fL Sodium (136-145) mmol/L Potassium (3.5-5.1) mmol/L Chloride (98-107) mmol/L Carbon Dioxide (21-32) mmol/L Anion Gap (3-11) BUN (6-23) mg/dl Creatinine (0.6-1.2) mg/dl Est Cr Clr Drug Dosing ml/min Est GFR ( Amer) ml/min Est GFR (Non-Af Amer) ml/min BUN/Creatinine Ratio (10-20) Glucose (70-99(Fasting)) mg/dl POC Glucose 106 H 154 H (70-99) mg/dl Estimat Average Glucose Hemoglobin A1c Calcium (8.5-10.1) mg/dl Magnesium Total Bilirubin (0.2-1.0) mg/dl Direct Bilirubin (0-0.2) mg/dl AST (13-39) U/L ALT (7-52) U/L Alkaline Phosphatase (34-104) U/L Total Protein (6.0-8.3) gm/dl Albumin (3.4-5.0) gm/dl 05/10/22 05/10/22 05/10/22 Range/Units 15:29 15:09 14:16 WBC (4.8-10.8) K/ul RBC (3.93-5.22) M/uL Hgb (12.0-16.0) g/dl Hct (34.1-44.9) % MCV (80.0-100.0) fL MCH (25.0-34.0) pg MCHC (32.0-36.0) g/dL RDW Std Deviation (36.4-46.3) fL RDW Coeff of Vanesa (11.5-14.5) % Plt Count (130-400) K/uL MPV (9.4-12.3) fL Sodium 136 (136-145) mmol/L Potassium 3.6 (3.5-5.1) mmol/L Chloride 100 (98-107) mmol/L Carbon Dioxide 33 H (21-32) mmol/L Anion Gap 3 (3-11) BUN 30 H (6-23) mg/dl Creatinine 0.92 (0.6-1.2) mg/dl Est Cr Clr Drug Dosing 77.6 ml/min Est GFR ( Amer) 74.7 ml/min Est GFR (Non-Af Amer) 64.4 ml/min BUN/Creatinine Ratio 32.6 H (10-20) Glucose 175 H (70-99(Fasting)) mg/dl POC Glucose 189 H 189 H (70-99) mg/dl Estimat Average Glucose Hemoglobin A1c Calcium 9.0 (8.5-10.1) mg/dl Magnesium Total Bilirubin (0.2-1.0) mg/dl Direct Bilirubin (0-0.2) mg/dl AST (13-39) U/L ALT (7-52) U/L Alkaline Phosphatase (34-104) U/L Total Protein (6.0-8.3) gm/dl Albumin (3.4-5.0) gm/dl 05/10/22 05/10/22 05/10/22 Range/Units 13:28 11:46 09:56 WBC (4.8-10.8) K/ul RBC (3.93-5.22) M/uL Hgb (12.0-16.0) g/dl Hct (34.1-44.9) % MCV (80.0-100.0) fL MCH (25.0-34.0) pg MCHC (32.0-36.0) g/dL RDW Std Deviation (36.4-46.3) fL RDW Coeff of Vanesa (11.5-14.5) % Plt Count (130-400) K/uL MPV (9.4-12.3) fL Sodium (136-145) mmol/L Potassium (3.5-5.1) mmol/L Chloride (98-107) mmol/L Carbon Dioxide (21-32) mmol/L Anion Gap (3-11) BUN (6-23) mg/dl Creatinine (0.6-1.2) mg/dl Est Cr Clr Drug Dosing ml/min Est GFR ( Amer) ml/min Est GFR (Non-Af Amer) ml/min BUN/Creatinine Ratio (10-20) Glucose (70-99(Fasting)) mg/dl POC Glucose 233 H 245 H 417 H* (70-99) mg/dl Estimat Average Glucose Hemoglobin A1c Calcium (8.5-10.1) mg/dl Magnesium Total Bilirubin (0.2-1.0) mg/dl Direct Bilirubin (0-0.2) mg/dl AST (13-39) U/L ALT (7-52) U/L Alkaline Phosphatase (34-104) U/L Total Protein (6.0-8.3) gm/dl Albumin (3.4-5.0) gm/dl 05/10/22 05/10/22 05/10/22 Range/Units 09:55 09:54 06:00 WBC (4.8-10.8) K/ul RBC (3.93-5.22) M/uL Hgb (12.0-16.0) g/dl Hct (34.1-44.9) % MCV (80.0-100.0) fL MCH (25.0-34.0) pg MCHC (32.0-36.0) g/dL RDW Std Deviation (36.4-46.3) fL RDW Coeff of Vanesa (11.5-14.5) % Plt Count (130-400) K/uL MPV (9.4-12.3) fL Sodium 134 L (136-145) mmol/L Potassium 3.0 L (3.5-5.1) mmol/L Chloride 94 L (98-107) mmol/L Carbon Dioxide 32 (21-32) mmol/L Anion Gap 8 (3-11) BUN 35 H (6-23) mg/dl Creatinine 1.06 (0.6-1.2) mg/dl Est Cr Clr Drug Dosing 67.4 ml/min Est GFR ( Amer) 62.9 ml/min Est GFR (Non-Af Amer) 54.3 ml/min BUN/Creatinine Ratio 33.0 H (10-20) Glucose 362 H* (70-99(Fasting)) mg/dl POC Glucose 400 H* 426 H* (70-99) mg/dl Estimat Average Glucose Hemoglobin A1c Calcium 9.6 (8.5-10.1) mg/dl Magnesium 1.9 Total Bilirubin (0.2-1.0) mg/dl Direct Bilirubin (0-0.2) mg/dl AST (13-39) U/L ALT (7-52) U/L Alkaline Phosphatase (34-104) U/L Total Protein (6.0-8.3) gm/dl Albumin (3.4-5.0) gm/dl 05/10/22 Range/Units 06:00 WBC (4.8-10.8) K/ul RBC (3.93-5.22) M/uL Hgb (12.0-16.0) g/dl Hct (34.1-44.9) % MCV (80.0-100.0) fL MCH (25.0-34.0) pg MCHC (32.0-36.0) g/dL RDW Std Deviation (36.4-46.3) fL RDW Coeff of Vanesa (11.5-14.5) % Plt Count (130-400) K/uL MPV (9.4-12.3) fL Sodium (136-145) mmol/L Potassium (3.5-5.1) mmol/L Chloride (98-107) mmol/L Carbon Dioxide (21-32) mmol/L Anion Gap (3-11) BUN (6-23) mg/dl Creatinine (0.6-1.2) mg/dl Est Cr Clr Drug Dosing ml/min Est GFR ( Amer) ml/min Est GFR (Non-Af Amer) ml/min BUN/Creatinine Ratio (10-20) Glucose (70-99(Fasting)) mg/dl POC Glucose (70-99) mg/dl Estimat Average Glucose Hemoglobin A1c Calcium (8.5-10.1) mg/dl Magnesium Cancelled Total Bilirubin (0.2-1.0) mg/dl Direct Bilirubin (0-0.2) mg/dl AST (13-39) U/L ALT (7-52) U/L Alkaline Phosphatase (34-104) U/L Total Protein (6.0-8.3) gm/dl Albumin (3.4-5.0) gm/dl Diagnostic Findings KUB X-Ray 05/10/22 09:11 XR KUB/Abdomen 1 view CLINICAL HISTORY: weakness, eval constipation TECHNIQUE: 1 view of the abdomen was obtained. Comparison: Comparison is made to abdomen radiograph 02/01/2017 FINDINGS: Exam is limited by underpenetration. The osseous structures are grossly unremarkable. The bowel gas pattern is nonobstructive. Small stool burden is seen. IMPRESSION: Limited exam due to underpenetration. Small stool burden is seen without evidence of fecal impaction. ACT 112: Negative or not required by law. Electronically signed by: Frank Hung M.D. 05/10/2022 3:22 PM Ankle X-Ray 05/10/22 10:34 XR ankle RT min 3V routine CLINICAL HISTORY: s/p fall, ankle pain TECHNIQUE: 3 views of the right ankle were obtained. Comparison: None available at the time of this dictation. FINDINGS: An old irregularity of the lateral aspect of the distal tibia is noted. Degenerative changes are seen. Plantar and Achilles enthesophytes are seen. The ankle mortise is intact. Soft tissue swelling is seen about the ankle. IMPRESSION: Soft tissue swelling is seen about the joint without evidence of underlying acut e fracture. 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 Degenerative changes are noted. ACT 112: Negative or not required by law. Electronically signed by: Frank Hung M.D. 05/10/2022 3:29 PM Knee X-Ray 05/10/22 10:34 XR knee RT 3V CLINICAL HISTORY: s/p fall, knee pain TECHNIQUE: 3 views of the right knee were obtained. Comparison: None available at the time of this dictation. FINDINGS: Patient is status post total right arthroplasty. No evidence of perihardware lucency or hardware fracture. There may be a small suprapatellar effusion. No soft tissue abnormality is seen. IMPRESSION: Possible small suprapatellar effusion. No evidence of acute fracture. ACT 112: Negative or not required by law. Electronically signed by: Frank Hung M.D. 05/10/2022 3:30 PM PG Care Time/CCT Total # of Minutes Spent Total Time Spent with Patient: Total time spent is greater than 50% in coordination of care (as documented) at patient's floor/unit and/or counseling patient: Coding Level of Care Code 44116 Subseq Hosp Care Lvl 3 Diagnoses DM2 (diabetes mellitus, type 2) E11.9 Fall W19.XXXA Chronic diastolic heart failure I50.32 UTI (urinary tract infection) N39.0 Right knee pain M25.561 Constipation K59.00 Electrolyte abnormality E87.8 Depression F32.9 GARRETT on CPAP G47.33; Z99.89 HTN (hypertension) I10 HLD (hyperlipidemia) E78.5 GERD (gastroesophageal reflux disease) K21.9 Low back pain M54.50
[2022-05-11] MEDS: INSULIN HUMAN NPH SC SCH (08:04)
[2022-05-11] MEDS: INSULIN ASPART PER UNIT SC SCH ×4 (08:04→20:40)
[2022-05-11] MEDS: nadoloL 40 MG TAB PO SCH (08:07)
[2022-05-11] MEDS: DOCUSATE SODIUM 100 MG CAP PO SCH ×2 (08:07→20:43)
[2022-05-11] MEDS: lisinopril 2.5 MG TAB PO SCH (08:07)
[2022-05-11] MEDS: SERTRALINE HCL 50 MG TABLET PO SCH (08:09)
[2022-05-11] MEDS: SENNA 8.6 MG TAB PO SCH (08:09)
[2022-05-11] MEDS: EZETIMIBE 10 MG TABLET PO SCH (08:09)
[2022-05-11] MEDS: FAMOTIDINE 40 MG TABLET PO SCH (08:09)
[2022-05-11 11:24] LABS: Lyme Ab IgG w/WB Rflx Negative (Negative); Lyme Ab IgM w/WB Rflx Negative (Negative)
[2022-05-11] MEDS: LIDOCAINE 5% 1 PATCH TD SCH (11:54)
[2022-05-11] MEDS ORDERED: LORazepam 0.5 MG TAB SL STA (13:35)
[2022-05-11] MEDS ORDERED: GADOBUTROL 30ML VIAL IV ONE (15:16)
--- NOTE | 2022-05-11 15:51 | Magnetic Resonance Report ---
MRI OF THE BRAIN COMBO CLINICAL HISTORY: Generalized weakness. Recent fall. COMPARISON STUDY: CT of the brain dated 10/10/2018. TECHNIQUE: MRI of the brain was performed utilizing various T1 and T2-weighted sequences in the axial , sagittal, and coronal planes. Contrast-enhanced sequences were acquired following the administratio n of 12 cc of Gadavist. FINDINGS: Brain parenchyma: There is age-related involutional change noting minimal microangiopathic disease. T here is no hemorrhage or mass effect. There is no restricted diffusion to suggest acute ischemia. Inc reased T1 signal within the basal ganglia is nonspecific and may represent mineralization. No enhanci ng mass lesion is identified on the postcontrast images. Newton-white matter differentiation is preserv ed. No extra-axial fluid collection is seen. The cerebellar tonsils are normal in configuration. Ventricles, sulci, and cisterns: Prominent secondary to involutional change. Pituitary and sella: Unremarkable. Intracranial vasculature: Normal flow voids are maintained at the skull base. Orbits: The bony orbits are grossly intact. Orbital contents are normal in appearance noting bilatera l ocular lens implants. Sinuses and mastoids: A 9 mm retention cyst is noted in the left maxillary antrum. The paranasal sinu ses and mastoid air cells are otherwise clear. Calvarium: Unremarkable. Cervical cord: Partially visualized cervical spinal cord is normal in morphology and signal intensity . IMPRESSION: No acute intracranial abnormality. ACT 112: Negative or not required by law. Electronically signed by: Bravo Moe M.D. 05/11/2022 3:49 PM
[2022-05-11] MEDS ORDERED: INSULIN HUMAN NPH SC SCH (17:00)
[2022-05-11] MEDS: DICLOFENAC SOD 1% GEL 100 GM TUBE EXT SCH ×2 (17:14→20:42)
--- NOTE | 2022-05-11 19:01 | XRay Report ---
LUMBAR SPINE 3 VIEWS CLINICAL HISTORY: Fall. Low back pain. FINDINGS: 3 views of the lumbar spine are correlated with abdominal CT dated 09/24/2020. The skeletal s tructures are osteopenic. There is no radiographic evidence of fracture or malalignment. Vertebral ilda dy height and alignment are maintained throughout the lumbar spine. Small anterior and lateral margin al osteophytes are seen throughout. The transverse and spinous processes appear intact. There is mild disc space narrowing at T12-L1 with associated endplate sclerosis. Mild disc space narrowing is also seen at L5-S1. The remaining disc spaces appear maintained. Facet arthropathy is seen in the lower l umbar region. Imaged portions of the bony pelvis appear intact. There is no bowel obstruction. Modera te fecal retention is seen throughout the colon. Cholecystectomy clips are noted in the right upper q uadrant. Phleboliths are identified in the pelvis. There is atherosclerotic calcification of the abdo eben aorta. IMPRESSION: 1. No acute bony abnormality is seen involving the lumbar spine. 2. Osteopenia and mild spondylotic change as above. Dictated: 05/11/2022 10:49 AM Transcribed: 05/11/2022 11:06 AM Kezia [id number] ALDEN_Marco Antonio Electronically signed by: Bravo Moe M.D. 05/11/2022 6:59 PM
--- NOTE | 2022-05-11 19:10 | XCELERA ---
[id number]
[2022-05-11] MEDS: DULoxetine HCL 60 MG CAP PO SCH (20:42)
[2022-05-11] MEDS: ROSUVASTATIN CALCIUM 20 MG TAB PO SCH (20:43)
[2022-05-12] MEDS ORDERED: KETOROLAC TROMETHAMINE 15 MG/ML VIAL IV ONE (05:13)
[2022-05-12] MEDS: cefTRIAXone SODIUM 2,000 MG in DEXTROSE 5% 50 ML IV SCH (05:27)
--- NOTE | 2022-05-12 06:25 | Communication Note ---
Date of Service: May 12, 2022 Patient reporting severe low back pain. Ordered dose of toradol. Per chart review, had ground level fall prior to admission. XR L spine at admission w/o fracture. Day team to follow.
[2022-05-12 07:09] LABS: Hematocrit (blood only) 37.8 % (34.1-44.9); Mean Corpuscular Hemoglobin 30.6 pg (25.0-34.0); Mean Corpuscular Hgb Conc 34.4 g/dL (32.0-36.0); Mean Corpuscular Volume 88.9 fL (80.0-100.0); Mean Platelet Volume 11.6 fL (9.4-12.3); Platelet Count 113 K/uL (130-400); RDW Coefficient of Variation 14.3 % (11.5-14.5); RDW Standard Deviation 46.2 fL (36.4-46.3); Red Blood Count 4.25 M/uL (3.93-5.22); White Blood Count 7.46 K/ul (4.8-10.8)
[2022-05-12 07:37] LABS: Estimated Average Glucose 209 mg/dl; Hemoglobin A1C 8.9 % (4.5-5.6)
[2022-05-12] MEDS: DICLOFENAC SOD 1% GEL 100 GM TUBE EXT SCH ×4 (07:39→20:02)
[2022-05-12] MEDS: nadoloL 40 MG TAB PO SCH (07:40)
[2022-05-12] MEDS: DOCUSATE SODIUM 100 MG CAP PO SCH ×2 (07:40→20:01)
[2022-05-12] MEDS: LIDOCAINE 5% 1 PATCH TD SCH (07:40)
[2022-05-12] MEDS: SERTRALINE HCL 50 MG TABLET PO SCH (07:41)
[2022-05-12] MEDS: SENNA 8.6 MG TAB PO SCH (07:41)
[2022-05-12] MEDS: EZETIMIBE 10 MG TABLET PO SCH (07:41)
[2022-05-12] MEDS: lisinopril 2.5 MG TAB PO SCH (07:41)
[2022-05-12 07:44] LABS: Albumin Globulin Ratio 0.8 (0.9-2); Albumin Level 2.8 gm/dl (3.4-5.0); BUN Creatinine Ratio 29.5 (10-20); Bilirubin,Total 1.4 mg/dl (0.2-1.0); Calcium 9.1 mg/dl (8.5-10.1); Chol HDL Ratio 3.8 (0-5); Creatinine Clr Calc Pharmacy 92.8 ml/min; Est GFR (African American) 91.2 ml/min; Est GFR (Non-African American) 78.7 ml/min; Globulin 3.7 gm/dl (2.5-4.0); Magnesium 1.7 mg/dl (1.7-2.4); Potassium 4.1 mmol/L (3.5-5.1); Total Protein 6.5 gm/dl (6.0-8.3)
[2022-05-12] MEDS: INSULIN ASPART PER UNIT SC SCH ×4 (07:59→20:04)
[2022-05-12] MEDS: FAMOTIDINE 40 MG TABLET PO SCH (08:00)
[2022-05-12] MEDS: INSULIN HUMAN NPH SC SCH (08:00)
[2022-05-12] MEDS ORDERED: INSULIN HUMAN NPH SC SCH ×2 (08:00→17:00)
[2022-05-12] MEDS ORDERED: MAGNESIUM SULFATE / D5W 1 GM/100 ML BAG IV ONE (08:15)
--- NOTE | 2022-05-12 08:15 | Hospitalist Progress Note ---
Date of Service May 12, 2022 Assessment & Plan (1) Acute hyperglycemia: Plan: Patient w/ DM II A1c most recently 7.5 presented to ER w/ a fall at home as she was unable to get up. BSG >500. Labs by visiting nrusing w/ renal insufficiency and dehydration. Also w/ weakness. Patient reported BSGs difficult to control for last 2 weeks and drinking lots of fluids at correction. Developed progressive weakness and had ground level fall this evening without head trauma or LOC. BSG was 592 when EMS arrived. Also feels constipated/bloated, passing gas but no good BM x 2 weeks. Typically on Humulin U-500, 130u breakfast, 20u lunch, Trulicity 1.5mg weekly (Fridays). BSGs 500s throughout the day over last 2 weeks. Recent PCP notes w/ malaise/polypharmacy. Weaned off sertraline, then nortriptyline. BSG 553 on arrival to ER. IVF and insulin gtt provided for BSGs into 300-400s, no anion gap/DKA A1c elevated to 8.9, prior 7.5 indicating worsened compliance vs dietary indiscretions -- see below. Patient's sister does state she is compliant with insulin administration, so suspect dietary playing large role as well Will consult DM educator for additional support Encouraged patient to keep dietary log for follow up BSGs much improved, remains on 65u NPH AM, 10u PM. ISS Will touch base for better plan for d/c tomorrow as patient to be going home with home health (2) DM2 (diabetes mellitus, type 2): Plan: A1c worsened from prior, see above BSGs improved (3) Fall: Plan: fall w/o LOC/head trauma reported, admitted with BSGs in 400-500s did report R knee/ankle pain following fall --> obtain xray for initial eval, but do not expect acute fracture, possible soft tissue/swelling, maybe small effusion R knee PT/OT consulted as from [facility]) -- could possible [facility] SNF Of report, patient did have some possible RIGHT SIDED facial droop vs. Circle Palsy -- check Lyme. Of note, reports NOT acute, present since over a year prior MRI in 2019, however would have been >1 year, family hx strokes/mass --> check MRI for completeness for other eval of weakness --> speech consult ordered given reports dysphagia by family member -- was to have "dilation" but cancelled due to being ill. --> diet changed to slipper diet with thin liquids, aspiration and reflux precautions. Also placing on telemetry to look for any arrhythmias -- NONE 07/12 Also checking lumbar spine xray given low back pain/LE weakness -- negative for acute finding Check ECHO for possible worsening EF contributing to rapid weight gain, no obvious murmur on exam echo appears unchanged MRI negative for acute/chronic CVA or masses Xray lumbar spine without acute fracture PT/OT consulted -- ok for reutnr home, CM to arrange HH. Cards also arranging for [email or web address] at home to resume (4) Chronic diastolic heart failure: Plan: Hx of chronic diastolic HF, follows with [facility], Adrianna Garcia. ECHO Jun 2020 LV wall thick/midly increased, LA mildy enlarged. LV diastolic function moderately abn (grade II). Compared to prior, grade II diastolic and pulm HTN ECHO February 2022 in notes w/ LV 60-64%, mild aortic valve sclerosis, grade I diastolic dysfunction Most recent note from March 2022 w/ reported 22lb weight gain, possible medication non-compliance as 17 pills in piill pack but only taking 6 She had at that time gained 22lb since last visit which was end of february-- patient reported most of the weight gain/edema occurred in past week w/ worsening SOb/abd bloating (R leg open/sore) Typically on lisinopril 2.5mg daily, nadolol daily, spironolactone 100mg daily, metolazone 5mg M// ( additional as needed based on weights), torsemide 100mg daily Prior also on lasix 80mg 3x/week per PCP notes prior to switch to metolazone --> weight fluctuations from 281/297lb, can lose 17lb in a day (likely from the metolazone if true), reported tremors/trouble with coordination/fingers getting locked up ECHO repeated, unchanged *Wt 267lb on admit, currently 274.4lb Now with some 1+ LE edema, cards on consult and resumed torsemide/spironolactone (also to help w/ cirrhosis, discussed with sister), ok to HOLD FURTHER METOLAZONE Suspect HUGE aspect of noncompliance with diet/fluid restriction at home Patient/sister without knowlegde of sodium restriction/staying away from canned foods (reports using soup when not feeling well/other prepared items) Also sister reported encouraging her to take in lots of water to stay hydrated. Discussed fluid restriction and again in setting of cirrhosis that would not exceed 1500mL at least initially and monitor weights/take scale to next visit to ensure accurate Also encouraged dietary log, and messaged nutrition to see about providing additional information Per discussion with cards, to have close f/u CHF clininc. Also being re-enrolled in [facility] at home. Encouraged continued discussions regarding diet/salt with cardiology office to stress importance Monitor I&O, weights in AM (5) Cirrhosis: Plan: Hx of, no alcohol use, suspect NAFLD/obesity suspect cause of her thrombocytopenia Hepatic cirrhosis and splenomegaly noted on CTAP September 2020, patient had EGD w/ evidence of portal gastropathy in [address] Watt On torsemide/spironolactone, also for CHF Patient/sister unaware of this diagnosis, suspect also contributing to edema/low albumin/etc Ammonia not significantly elevated, did order 1x dose lactulose to assist with bowels Strongly encouraged low salt/fluid restriction at discharge and f/u Dr Watt outpatient. Per CM, to be arranged outpatient by PCP (6) UTI (urinary tract infection): Plan: UA appears infected Ceftriaxone IV (day 2) monitor urine cx -- pending --> normal jeffy, but did appear w/ sx and improving with treatment Ceftriaxone had been continued, repeat urine cx with pin-point growth, re- incubating Monitor repeat cx (7) Right knee pain: Plan: xray ordered -- effusion pain control reported pain controlled currently (8) Constipation: Plan: reported no BM in several days, no "good BM" in 2 weeks +good BM 05/11, none further xray lumbar spine w/ stool burden ammonia checked given weakness/hx cirrhosis, not significant elevation however given lactulose x 1 to assist with BM consider sending prn at home to prevent issues with constipation, but also suspect was dehydrated on admission, worsening constipation issues (9) Depression: Plan: Chronic. Stable Continue Duloxetine Continue Sertraline --> per PCP note, mentions weaning off sertraline 50mg daily x 2 weeks, then 50mg QOD then stop. Will need to verify dosing with patient/weaning at d/c if those are still her wishes mood appears stable currently on ordered medications however (10) GARRETT on CPAP: Plan: Continue CPAP qHS -- encouraged compliance (11) HTN (hypertension): Plan: controlled, home meds continued diuretics resumed by cardiology, Cr stable and BUN back to baseline (12) HLD (hyperlipidemia): Plan: Chronic. Stable on medications -Continue Crestor -Continue zetia (13) GERD (gastroesophageal reflux disease): Plan: Chronic. Stable -Continue Omeprazole (14) Low back pain: Plan: check lumbar spine xray-- NEGATIVE Repeat urine culture pin point growth, likely constipation and urinary tract contributing as well pain control -- got dose of toradol last evening continued lidocaine patch, voltaren prn, heat prn repeat urine cx pain control -- lidocaine patch ordered (15) Hypokalemia: Plan: prior, likely 2nd to metolazone/diuretic use at home replacement ordered stable on repeat Plan continued inpatient stay diuretics resumed hopeful for d/c w/ HH tomorrow and [employer] at home to be arranged by cards Admission and Anticipated Discharge Date Admission Date: May 10, 2022 Subjective Seen this morning, doing alright. Initially wanting home health but discussed may be more beneficial for some rehab/SNF. Corby has SNF, she would be agreeable (her resides there). No fever/chills. She states just has a hard time getting up but is better once up/moving. On phone with her son presently. Discussed negative MRI brain and lumbar spine. Did endorse some low back pain/radiation around R flank/groin. NO HIP pain. Improvement of pain with Toradol overnight. Pain controlled currently. Repeat urine cx pending and will plan on continuing IV abx for now given weakness and appearance of UA on admission along with symptoms low back pain w/ radiation to groin with suprapubic discomfort at times. Checking renal U/S for eval pyelo. Breathing stable, discussed holding diuretics still for dehydration which has improved. Some trace pedal edema but denies any shortness of breath. ECHO unchanged, asked [email or web address] cards to weigh in on diuretic regimen. No further BM since yesterday, discuss try dose lactulose given hx cirrhosis and monitor . Ammonia not significantly elevated. Discussed A1c elevated to 8.9 which is worse that prior and indicates worsening control vs non-compliance as an outpatient and additional reasoning to ensure rehab for close monitoring. Discussed with sister regarding update, salt restriction/fluid restriction. No one prior discussed cirrhosis, patient never drank. Discussed could be NAFLD. Can have f/u outpt GI. Cardiology resuming diuretics but holding metolazone. Discussed sodium -- had meals on wheels in past, does do canned/boxed foods when not feeling well. Went over sodium contents/restrictions. She was also drinking lots of water and suspect over limit. Discussed 6 cup limit and encouraged dietary log. Also asked prevention coordinator to see. Review of Systems Review of Systems: All systems reviewed & are unremarkable except as noted in HPI & below Physical Exam Physical Exam: General: WD, obese female, sitting up in recliner having breakfast, NAD, non-toxic in appearance, AA&O x 4 HEENT: head normocephalic, atraumatic, thick neck, no JVD, mm still slighty dry (pushing fluids, improved from yesterday) Resp: CTAB, diminished in the bases, no w/c 99% on RA CV: RRR, systolic murmur, 1+ pitting edema pedal/LE, calves nontender GI: +BS, nontender : no farley, ?R CVA tenderness MSK/Neuro: moves all extremities, decreased strength b/l LE 3-4/5 with extension/flexion, finger to nose testing normal, no nystagmus R medial ankle tenderness, R knee incision well healed (improved from day prior) CN intact grossly --> exception appears possible slight bells palsy on the RIGHT vs facial droop (reported present for a year at least) tenderness to palpation along musculature lower back, no camden step off appreciated or hematoma/rash Psych: AOx3, pleasant and cooperative Skin: warm, dry Results & Data Results & Data ([facility]) Vital Signs (Past 12 Hours) Vital Signs Temp Pulse Pulse Resp BP Pulse Ox O2 Del Method 05/12/22 07:22 70 05/12/22 07:14 Room Air 05/12/22 06:41 36.6 C 70 18 118/69 97 Room Air 05/12/22 05:27 117/69 05/12/22 04:37 36.5 C 67 18 97/55 L 98 Room Air 05/11/22 22:11 73 05/11/22 23:25 Room Air 05/11/22 23:09 36.5 C 69 18 128/71 95 Room Air Laboratory Results 05/12/22 05/12/22 05/12/22 Range/Units 07:43 05:52 05:52 WBC 7.46 (4.8-10.8) K/ul RBC 4.25 (3.93-5.22) M/uL Hgb 13.0 (12.0-16.0) g/dl Hct 37.8 (34.1-44.9) % MCV 88.9 (80.0-100.0) fL MCH 30.6 (25.0-34.0) pg MCHC 34.4 (32.0-36.0) g/dL RDW Std Deviation 46.2 (36.4-46.3) fL RDW Coeff of Vanesa 14.3 (11.5-14.5) % Plt Count 113 L (130-400) K/uL MPV 11.6 (9.4-12.3) fL Sodium 137 (136-145) mmol/L Potassium 4.1 (3.5-5.1) mmol/L Chloride 103 (98-107) mmol/L Carbon Dioxide 30 (21-32) mmol/L Anion Gap 4 (3-11) BUN 23 (6-23) mg/dl Creatinine 0.78 (0.6-1.2) mg/dl Est Cr Clr Drug Dosing 92.8 ml/min Est GFR ( Amer) 91.2 ml/min Est GFR (Non-Af Amer) 78.7 ml/min BUN/Creatinine Ratio 29.5 H (10-20) Glucose 108 H (70-99(Fasting)) mg/dl POC Glucose 115 H (70-99) mg/dl Estimat Average Glucose mg/dl Hemoglobin A1c (4.5-5.6) % Calcium 9.1 (8.5-10.1) mg/dl Magnesium 1.7 (1.7-2.4) mg/dl Total Bilirubin 1.4 H (0.2-1.0) mg/dl AST 37 (13-39) U/L ALT 21 (7-52) U/L Alkaline Phosphatase 63 (34-104) U/L Total Protein 6.5 (6.0-8.3) gm/dl Albumin 2.8 L (3.4-5.0) gm/dl Globulin 3.7 (2.5-4.0) gm/dl Albumin/Globulin Ratio 0.8 L (0.9-2) Triglycerides 68 (0-150) mg/dl Cholesterol 151 (0-200) mg/dl LDL Cholesterol, Calc 97 mg/dl VLDL Cholesterol, Calc 14 (0-30) mg/dl HDL Cholesterol 40 mg/dl Cholesterol/HDL Ratio 3.8 (0-5) Lyme Disease IgG Ab (Negative) Lyme Disease IgM Ab (Negative) 05/11/22 05/11/22 05/11/22 Range/Units 20:13 16:49 11:44 WBC (4.8-10.8) K/ul RBC (3.93-5.22) M/uL Hgb (12.0-16.0) g/dl Hct (34.1-44.9) % MCV (80.0-100.0) fL MCH (25.0-34.0) pg MCHC (32.0-36.0) g/dL RDW Std Deviation (36.4-46.3) fL RDW Coeff of Vanesa (11.5-14.5) % Plt Count (130-400) K/uL MPV (9.4-12.3) fL Sodium (136-145) mmol/L Potassium (3.5-5.1) mmol/L Chloride (98-107) mmol/L Carbon Dioxide (21-32) mmol/L Anion Gap (3-11) BUN (6-23) mg/dl Creatinine (0.6-1.2) mg/dl Est Cr Clr Drug Dosing ml/min Est GFR ( Amer) ml/min Est GFR (Non-Af Amer) ml/min BUN/Creatinine Ratio (10-20) Glucose (70-99(Fasting)) mg/dl POC Glucose 144 H 131 H 254 H (70-99) mg/dl Estimat Average Glucose mg/dl Hemoglobin A1c (4.5-5.6) % Calcium (8.5-10.1) mg/dl Magnesium (1.7-2.4) mg/dl Total Bilirubin (0.2-1.0) mg/dl AST (13-39) U/L ALT (7-52) U/L Alkaline Phosphatase (34-104) U/L Total Protein (6.0-8.3) gm/dl Albumin (3.4-5.0) gm/dl Globulin (2.5-4.0) gm/dl Albumin/Globulin Ratio (0.9-2) Triglycerides (0-150) mg/dl Cholesterol (0-200) mg/dl LDL Cholesterol, Calc mg/dl VLDL Cholesterol, Calc (0-30) mg/dl HDL Cholesterol mg/dl Cholesterol/HDL Ratio (0-5) Lyme Disease IgG Ab (Negative) Lyme Disease IgM Ab (Negative) 05/11/22 05/10/22 Range/Units 05:59 06:00 WBC (4.8-10.8) K/ul RBC (3.93-5.22) M/uL Hgb (12.0-16.0) g/dl Hct (34.1-44.9) % MCV (80.0-100.0) fL MCH (25.0-34.0) pg MCHC (32.0-36.0) g/dL RDW Std Deviation (36.4-46.3) fL RDW Coeff of Vanesa (11.5-14.5) % Plt Count (130-400) K/uL MPV (9.4-12.3) fL Sodium (136-145) mmol/L Potassium (3.5-5.1) mmol/L Chloride (98-107) mmol/L Carbon Dioxide (21-32) mmol/L Anion Gap (3-11) BUN (6-23) mg/dl Creatinine (0.6-1.2) mg/dl Est Cr Clr Drug Dosing ml/min Est GFR ( Amer) ml/min Est GFR (Non-Af Amer) ml/min BUN/Creatinine Ratio (10-20) Glucose (70-99(Fasting)) mg/dl POC Glucose (70-99) mg/dl Estimat Average Glucose 209 mg/dl Hemoglobin A1c 8.9 H (4.5-5.6) % Calcium (8.5-10.1) mg/dl Magnesium (1.7-2.4) mg/dl Total Bilirubin (0.2-1.0) mg/dl AST (13-39) U/L ALT (7-52) U/L Alkaline Phosphatase (34-104) U/L Total Protein (6.0-8.3) gm/dl Albumin (3.4-5.0) gm/dl Globulin (2.5-4.0) gm/dl Albumin/Globulin Ratio (0.9-2) Triglycerides (0-150) mg/dl Cholesterol (0-200) mg/dl LDL Cholesterol, Calc mg/dl VLDL Cholesterol, Calc (0-30) mg/dl HDL Cholesterol mg/dl Cholesterol/HDL Ratio (0-5) Lyme Disease IgG Ab Negative (Negative) Lyme Disease IgM Ab Negative (Negative) Diagnostic Findings Lumbar Spine X-Ray 05/11/22 10:12 LUMBAR SPINE 3 VIEWS CLINICAL HISTORY: Fall. Low back pain. FINDINGS: 3 views of the lumbar spine are correlated with abdominal CT dated 09/24/2020. The skeletal structures are osteopenic. There is no radiographic evidence of fracture or malalignment. Vertebral body height and alignment are maintained throughout the lumbar spine. Small anterior and lateral marginal osteophytes are seen throughout. The transverse and spinous processes appear intact. There is mild disc space narrowing at T12-L1 with associated endplate sclerosis. Mild disc space narrowing is also seen at L5-S1. The remaining disc spaces appear maintained. Facet arthropathy is seen in the lower lumbar region. Imaged portions of the bony pelvis appear intact. There is no bowel obstruction. Moderate fecal retention is seen throughout the colon. Cholecystectomy clips are noted in the right upper quadrant. Phleboliths are identified in the pelvis. There is atherosclerotic calcification of the abdominal aorta. IMPRESSION: 1. No acute bony abnormality is seen involving the lumbar spine. 2. Osteopenia and mild spondylotic change as above. Dictated: 05/11/2022 10:49 AM Transcribed: 05/11/2022 11:06 AM Kezia [id number] [facility] Electronically signed by: Bravo Moe M.D. 05/11/2022 6:59 PM Brain MRI 05/11/22 12:39 MRI OF THE BRAIN COMBO CLINICAL HISTORY: Generalized weakness. Recent fall. COMPARISON STUDY: CT of the brain dated 10/10/2018. TECHNIQUE: MRI of the brain was performed utilizing various T1 and T2-weighted sequences in the axial, sagittal, and coronal planes. Contrast-enhanced sequen patricio were acquired following the administration of 12 cc of Gadavist. FINDINGS: Brain parenchyma: There is age-related involutional change noting minimal microangiopathic disease. There is no hemorrhage or mass effect. There is no restricted diffusion to suggest acute ischemia. Increased T1 signal within the basal ganglia is nonspecific and may represent mineralization. No enhancing mass lesion is identified on the postcontrast images. Newton-white matter differentiation is preserved. No extra-axial fluid collection is seen. The cerebellar tonsils are normal in configuration. Ventricles, sulci, and cisterns: Prominent secondary to involutional change. Pituitary and sella: Unremarkable. Intracranial vasculature: Normal flow voids are maintained at the skull base. Orbits: The bony orbits are grossly intact. Orbital contents are normal in appearance noting bilateral ocular lens implants. Sinuses and mastoids: A 9 mm retention cyst is noted in the left maxillary antrum. The paranasal sinuses and mastoid air cells are otherwise clear. Calvarium: Unremarkable. Cervical cord: Partially visualized cervical spinal cord is normal in morphology and signal intensity. IMPRESSION: No acute intracranial abnormality. ACT 112: Negative or not required by law. Electronically signed by: Bravo Moe M.D. 05/11/2022 3:49 PM Renal Ultrasound 05/12/22 10:56 RENAL ULTRASOUND CLINICAL HISTORY: low back pain, weakness, eval pyelo COMPARISON STUDY: CT of the abdomen and pelvis September 24, 2020. TECHNIQUE: Sonography of the kidneys and the urinary bladder was performed. FINDINGS: The right kidney measures 11.6 cm in maximal dimension and the left measures 13.6 cm. No hydronephrosis is present. No renal mass or calculus is identified by sonography. Bladder is collapsed and not well visualized. IMPRESSION: Unremarkable sonographic appearance of the kidneys. No hydronephrosis. ACT 112: Negative or not required by law. Electronically signed by: Umesh Clark M.D. 05/12/2022 1:35 PM PG Care Time/CCT Total # of Minutes Spent Total Time Spent with Patient: Total time spent is greater than 50% in coordination of care (as documented) at patient's floor/unit and/or counseling patient: Coding Level of Care Code 16663 Subseq Hosp Care Lvl 3 Diagnoses Acute hyperglycemia R73.9 DM2 (diabetes mellitus, type 2) E11.9 Fall W19.XXXA Chronic diastolic heart failure I50.32 Cirrhosis K74.60 UTI (urinary tract infection) N39.0 Right knee pain M25.561 Constipation K59.00 Depression F32.9 GARRETT on CPAP G47.33; Z99.89 HTN (hypertension) I10 HLD (hyperlipidemia) E78.5 GERD (gastroesophageal reflux disease) K21.9 Low back pain M54.50 Hypokalemia E87.6
--- NOTE | 2022-05-12 09:00 | Cardiology Consultation ---
Date of Consultation May 12, 2022 Assessment & Plan (1) Acute hyperglycemia: (2) Chronic diastolic heart failure: (3) Acute dehydration: Plan Patient admitted for weakness, dehydration, hyperglycemia. Diuretics held on admission. cardio consult for diuretic management/advice on discharge. She has gained approx 3 kg since admission per trend of weights. Resume torsemide 100 mg daily and spironolactone 100 mg daily Will hold metolazone for now. was taking 3 days per week. Echo with stable findings, preserved LVEF, grade I diastolic dysfunction. PT/OT recommended. Case discussed with Dr. Aguero. Will follow. Supervising Physician Co-Signing Physician Notes Patient seen and examined at the bedside. Admitted with weakness, dehydration, and hyperglycemia. Diuretic therapy on hold. Currently feeling better. Denies chest pain or shortness of breath. Telemetry reveals sinus rhythm in the 60s. Mild lower extremity edema noted, however, patient states this is her "normal". PE: VSS. Gen: NAD, awake alert and orient x3. Obese. Heart: Regular rhythm, normal S1-S2. No murmur appreciated. Lungs: Clear bilateral, diminished breath sounds at the bases. No rales, rhonchi, wheeze. Extremities: Mild, 1+ bilateral ankle edema. A/P: Agree with above MITCHELL history, physical exam, assessment and plan. Stable echo findings as noted above. Restart torsemide and spironolactone as noted above. Metolazone remain on hold. Cardiology follow-up 1 to 2 weeks post discharge. History of Present Illness Reason for Consultation: assist with diuretics; history of CHF; Non compliance Requesting Physician: Lora Verdin PA-C Attending Physician: Dr. Aguero History of Present Illness Patient is a 67 year old female who [facility] and Dr[facility] 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 Last month patient presented to the office after 20 lb weight gain with worsening LE edema and non compliance with home medications. Her diuretics wer resumed including torsemide, spironolactone, and metolazone. She was re- enrolled with [facility] who followed her at home for improved medical management. Per report, she had progressive weight loss and improved CHF symptoms/edema. Stable renal function, electrolytes were noted at close f/u. Apparently patient developed significant weakness over the last week with elevated blood glucose readings. She sustained a fall prior to admission and therefore came to the ER for evaluation. Diagnosed with UTI and hyperglycemia. Diuretics were placed on hold on admission due to concerns regarding volume depletion and recent weight loss. Cardiology consulted for diuretic management going forward in anticipation for upcoming discharge. Per review of weights from admission, she is trending upward, about 3 kg. Has LE edema around ankles today. Denies acute cardiac complaints. No chest pain/SOB. Allergies Allergy/AdvReac Type Severity Reaction Status Date / Time ciprofloxacin Allergy Intermediate MOUTH Verified 05/10/22 00:10 BLISTERS, HIVES morphine Allergy Intermediate HIVES, Verified 05/10/22 00:10 "DEATHLY ILL", THROWS UP oxycodone Allergy Intermediate HIVES, Verified 05/10/22 00:10 VOMITING penicillin V Allergy Intermediate HIVES Verified 05/10/22 00:10 Home Medications Medication Instructions Recorded Confirmed Type nitroglycerin 0.4 mg sublingual 0.4 mg sublingual UD PRN Chest Pain 10/10/18 05/10/22 History tablet (Nitrostat) rosuvastatin 40 mg tablet 40 mg PO HS 10/10/18 05/10/22 History blood sugar diagnostic (OneTouch #50 ea 04/05/20 03/26/22 History Ultra Blue Test Strip) lancets (OneTouch UltraSoft #100 ea 04/05/20 03/26/22 History Lancets) flash glucose scanning reader #1 ea 06/05/20 03/26/22 Rx (FreeStyle Courtney 2 [place]) BD Ultra-Fine Mini Pen Needle 31 #300 ea 10/30/20 03/26/22 Rx gauge x 3/16" (pen needle, diabetic) flash glucose sensor (FreeStyle #2 ea 06/28/21 03/26/22 Rx Courtney 2 Sensor kit) lisinopril 2.5 mg tablet 2.5 mg PO QAM 10/11/21 05/10/22 History metolazone 5 mg tablet 5 mg PO 3XWK 10/11/21 05/10/22 History nadolol 20 mg tablet 10 mg PO QAM 10/11/21 05/10/22 History albuterol sulfate 90 mcg/actuation 2 puff inhalation Q4 PRN Shortness 12/20/21 05/10/22 Rx aerosol inhaler (ProAir HFA) Of Breath Or Wheezing #8.5 grams dulaglutide 1.5 mg/0.5 mL 4.5 mg subcut WK 03/26/22 05/10/22 History subcutaneous pen injector (Trulicity) insulin regular hum U-500 conc 500 See Rx Instructions .Route .COMPLEX 03/26/22 05/10/22 History unit/mL(3 mL) subcut pen (Humulin R U-500 (Conc) Insulin Kwikpen) potassium chloride 10 mEq 10 meq PO 3XWK 03/26/22 05/10/22 History tablet,extended release sertraline 50 mg tablet 50 mg PO DAILY 03/26/22 05/10/22 History spironolactone 100 mg tablet 100 mg PO DAILY 03/26/22 05/10/22 History torsemide 100 mg tablet 100 mg PO QAM 03/26/22 05/10/22 History Shower Chair #1 ea 03/28/22 Rx omeprazole 40 mg capsule,delayed 40 mg PO QAM #90 caps 04/21/22 05/10/22 Rx release cranberry fruit 450 mg tablet 450 mg PO BID 05/10/22 05/10/22 History (cranberry) duloxetine 60 mg capsule,delayed 60 mg PO HS 05/10/22 05/10/22 History release ezetimibe 10 mg tablet 10 mg PO DAILY 05/10/22 05/10/22 History Patient History Medical History (Updated 05/12/22 @ 10:51 by Oumou Osborn DO) Cancer UTERINE CANCER SKIN CANCER Cardiac murmur Chronic kidney disease STAGE 3-4? F/U PCP Congestive heart failure Diffuse myofascial pain syndrome Diverticular disease DM2 (diabetes mellitus, type 2) IDDM Fatty liver PER PT ROME (generalized anxiety disorder) Gastroparesis GERD (gastroesophageal reflux disease) History of anesthesia reaction difficulty waking History of COVID-19 09/2020 @ [facility]--headache/diarrhea--no issues now HLD (hyperlipidemia) HTN (hypertension) Hx MRSA infection IBS (irritable bowel syndrome) Migraine Morbid obesity with BMI of 45.0-49.9, adult Nausea and vomiting after administration of anesthetic agent Occasional tremors AT NIGHT GARRETT on CPAP Osteoarthritis Surgical History Cancer H/O esophagogastroduodenoscopy H/O eye surgery History of appendectomy History of bladder surgery History of colonoscopy History of left heart catheterization (LHC) History of tooth extraction History of total knee replacement S/P cholecystectomy S/P VA-BSO Family History Father Diabetes Sister Ovarian cancer Family history of diabetes mellitus Sister Family history of diabetes mellitus Mother Breast cancer Family history of reaction to anesthesia Grandmother (Maternal) Myocardial infarction Uncle Prostate cancer Other Cancer Gallbladder disease Heart disease Hypertension Lung disease Denies family history of Colon cancer Social History (Updated 03/26/22 @ 14:52 by KANG Siddiqi) Smoking Status: Never smoker Second Hand Exposure: No; Hx Alcohol Use: No Hx Substance Use: No Preferred Language: Dominican Communication Ability: Effective Visual Impairment: No Limitations Hearing Ability: Normal [employer] Supervisor Required: No Beliefs That Will Affect Care: None marital status: Current Living Situation: Other Current Living Situation Comment: roommate at independent living current occupational status: retired current occupation: worked as [employer] Feels Safe at Home: Yes Childhood Exposure to Second-Hand Smoke: Yes Dental Care, Regularly: Yes Physical Activity Frequency: 3-4 Times per Week Seatbelt Use: always Sunscreen Use: Yes Assistive Devices: Walker Review of Systems Review of Systems: All systems reviewed & are unremarkable except as noted in HPI & below Physical Exam Constitutional: WD/WN, vitals as above + obese; no acute distress Neck: trachea midline, no thyromegaly Cardiovascular: Rate/Rhythm: regular rate and regular rhythm Heart Sounds: + murmur (II/ systolic murmur) Vessels: no JVD Extremities: + edema (1+ ankle and pretibial edema b/l) Gastrointestinal (Abdomen): normal bowel sounds, soft, nontender, no hepatosplenomegaly Neurologic: PERRL, EOMI, accommodation nl, no face palsy, no dysarthria Results & Data ([facility]) Vital Signs (Past 12 Hours) Vital Signs Temp Pulse Pulse Resp BP Pulse Ox O2 Del Method 05/12/22 07:22 70 05/12/22 07:14 Room Air 05/12/22 06:41 36.6 C 70 18 118/69 97 Room Air 05/12/22 05:27 117/69 05/12/22 04:37 36.5 C 67 18 97/55 L 98 Room Air 05/11/22 22:11 73 05/11/22 23:25 Room Air 05/11/22 23:09 36.5 C 69 18 128/71 95 Room Air Laboratory Results Cardiac Enzymes 05/12/22 Range/Units 05:52 AST 37 (13-39) U/L Lipids 05/12/22 Range/Units 05:52 Triglycerides 68 (0-150) mg/dl Cholesterol 151 (0-200) mg/dl HDL Cholesterol 40 mg/dl Cholesterol/HDL Ratio 3.8 (0-5) CBC 05/12/22 Range/Units 05:52 WBC 7.46 (4.8-10.8) K/ul RBC 4.25 (3.93-5.22) M/uL Hgb 13.0 (12.0-16.0) g/dl Hct 37.8 (34.1-44.9) % Plt Count 113 L (130-400) K/uL Comprehensive Metabolic Panel 05/12/22 Range/Units 05:52 Sodium 137 (136-145) mmol/L Potassium 4.1 (3.5-5.1) mmol/L Chloride 103 (98-107) mmol/L Carbon Dioxide 30 (21-32) mmol/L BUN 23 (6-23) mg/dl Creatinine 0.78 (0.6-1.2) mg/dl Glucose 108 H (70-99(Fasting)) mg/dl Calcium 9.1 (8.5-10.1) mg/dl AST 37 (13-39) U/L ALT 21 (7-52) U/L Alkaline Phosphatase 63 (34-104) U/L Total Protein 6.5 (6.0-8.3) gm/dl Albumin 2.8 L (3.4-5.0) gm/dl Intake and Output 05/11/22 05/12/22 05/12/22 22:59 06:59 14:59 Intake Total 610 / 1285 Output Total 650 / 650 Balance 610 / 1135 -650 / -650 Intake: IV / 70 cefTRIAXone SODIUM 2,000 mg In 70 / 70 Dextrose 5% 50 ml @ 100 mls/hr IV Q24H [facility] Rx#:[id number] Oral 540 / 1215 Output: Urine 650 / 650 Other: Weight 124.5 kg 124.4 kg Weight Measurement Method Standing Scale Diagnostic Findings Telemetry reviewed: NSR, no arrhythmias Echo report reviewed dated 05/11/22 at [facility]: Normal LV chamber size and function, EF 60-65% No significant valvular heart disease. Grade I diastolic dysfunction. RV systolic pressure is normal. Chest X-Ray 05/09/22 23:59 SINGLE VIEW CHEST CLINICAL HISTORY: Generalized weakness. FINDINGS: An AP, portable, upright chest radiograph is compared to study dated 09/24/2020. The heart is enlarged noting atherosclerotic calcification of the thoracic aorta. The pulmonary vasculature is noncongested. Chronic interstitial thickening is somewhat previous. The lungs and pleural spaces are clear noting mild bibasilar atelectasis. No pneumothorax is seen. The skeletal structures are osteopenic. The bony thorax is grossly intact. IMPRESSION: Cardiomegaly with no active disease in the chest. Brain MRI 05/11/22 12:39 MRI OF THE BRAIN COMBO CLINICAL HISTORY: Generalized weakness. Recent fall. COMPARISON STUDY: CT of the brain dated 10/10/2018. TECHNIQUE: MRI of the brain was performed utilizing various T1 and T2-weighted sequences in the axial, sagittal, and coronal planes. Contrast-enhanced sequences were acquired following the administration of 12 cc of Gadavist. FINDINGS: Brain parenchyma: There is age-related involutional change noting minimal microangiopathic disease. There is no hemorrhage or mass effect. There is no restricted diffusion to suggest acute ischemia. Increased T1 signal within the basal ganglia is nonspecific and may represent mineralization. No enhancing mass lesion is identified on the postcontrast images. Newton-white matter differentiation is preserved. No extra-axial fluid collection is seen. The cerebellar tonsils are normal in configuration. Ventricles, sulci, and cisterns: Prominent secondary to involutional change. Pituitary and sella: Unremarkable. Intracranial vasculature: Normal flow voids are maintained at the skull base. Orbits: The bony orbits are grossly intact. Orbital contents are normal in appearance noting bilateral ocular lens implants. Sinuses and mastoids: A 9 mm retention cyst is noted in the left maxillary antrum. The paranasal sinuses and mastoid air cells are otherwise clear. Calvarium: Unremarkable. Cervical cord: Partially visualized cervical spinal cord is normal in morphology and signal intensity. IMPRESSION: No acute intracranial abnormality. Outpatient echo report reviewed dated February 2022: Interpretation Summary The examination is adequate to evaluate the referral indication. The left ventricular cavity size is normal. The LV wall thickness is mildly increased (concentric). The left ventricular wall motion is normal. The qualitative LV ejection fraction is 60-64% (normal). The left ventricular diastolic function is mildly abnormal (grade I). The left atrium is mildly enlarged (35-41 ml/m^2). Mild aortic valve sclerosis is present. There is no evidence of pulmonary hypertension. Medications Administered Current Inpatient Medications Acetaminophen (Acetaminophen 325 Mg Tab) 650 mg PO Q4H PRN PRN Reason: pain/fever Stop: 06/09/22 05:02 Last Admin: 05/11/22 23:07 Dose: 650 mg Albuterol (Albuterol Hfa 8 Gm Inhaler) 2 puffs INH Q4 PRN PRN Reason: Shortness Of Breath Or Wheezing Stop: 06/09/22 05:02 Bisacodyl (Bisacodyl 10 Mg Supp) 10 mg AR DAILY PRN PRN Reason: Constipation Stop: 06/09/22 05:02 Dextrose (Dextrose 50% 50 Ml Syringe) 25 - 50 ml IV UD PRN; Protocol PRN Reason: Hypoglycemia Protocol Stop: 06/09/22 05:02 Diclofenac Sodium (Diclofenac Sod 1% Gel 100 Gm Tube) 2 gm EXT QID TEMI; Protocol Stop: 06/10/22 16:59 Last Admin: 05/12/22 07:39 Dose: 2 gm Docusate Sodium (Docusate Sodium 100 Mg Cap) 100 mg PO BID PRN PRN Reason: Constipation Stop: 06/09/22 05:02 Last Admin: 05/10/22 05:29 Dose: 100 mg Docusate Sodium (Docusate Sodium 100 Mg Cap) 100 mg PO BID TEMI Stop: 06/09/22 09:29 Last Admin: 05/12/22 07:40 Dose: 100 mg Duloxetine HCl (Duloxetine Hcl 60 Mg Cap) 60 mg PO HS TEMI Stop: 06/09/22 20:59 Last Admin: 05/11/22 20:42 Dose: 60 mg Ezetimibe (Ezetimibe 10 Mg Tablet) 10 mg PO DAILY TEMI Stop: 06/09/22 08:59 Last Admin: 05/12/22 07:41 Dose: 10 mg Famotidine (Famotidine 40 Mg Tablet) 40 mg PO QAM [facility]I Stop: 06/09/22 08:59 Last Admin: 05/12/22 08:00 Dose: 40 mg Glucagon (Glucagon For Inj 1 Mg Vial) 1 mg SQ UD PRN; Protocol PRN Reason: Hypoglycemia Protocol Stop: 06/09/22 05:02 Glucose (Glucose 40% Gel 15 Gm Tube) 15 - 30 gm PO UD PRN; Protocol PRN Reason: Hypoglycemia Protocol Stop: 06/09/22 05:02 Glucose (Glucose 10 Tab/Tube) 4 - 8 tab PO UD PRN; Protocol PRN Reason: Hypoglycemia Treatment Stop: 06/09/22 05:02 Ceftriaxone Sodium 2,000 mg/ (Dextrose) 70 mls @ 100 mls/hr IV Q24H [facility]; Protocol Stop: 05/16/22 05:59 Last Infusion: 05/12/22 06:20 Dose: Infused Insulin Aspart (Insulin Aspart Per Unit) 0 units SC ACHS TEMI Stop: 06/09/22 16:29 Last Admin: 05/12/22 07:59 Dose: 11 units Insulin Human NPH (Insulin Human Nph) 65 units SC DAILY@0800 [facility] Stop: 06/11/22 07:59 Last Admin: 05/12/22 08:00 Dose: 65 units Lactulose (Lactulose Syrup 20 Gm/30 Ml Udc) 20 gm PO DAILY [facility] Stop: 06/11/22 10:19 Lidocaine (L[facility]ocaine 5% 1 Patch) [facility] Stop: 06/10/22 10:29 Last Admin: 05/12/22 07:40 Dose: 1 patch Lisinopril (Lisinopril 2.5 Mg Tab) 2.5 mg PO QAM [facility] Stop: 06/09/22 08:59 Last Admin: 05/12/22 07:41 Dose: 2.5 mg Miscellaneous (Carbohydrates For Hypoglycemia ) 15 - 30 gm PO UD PRN PRN Reason: Hypoglycemia Protocol Stop: 06/09/22 05:02 Miscellaneous (Remove Lidoderm Patch) 1 each N/A DAILY@2100 [facility] Stop: 06/10/22 20:59 Last Admin: 05/11/22 20:44 Dose: 1 each Miscellaneous Information (Pharmacy Glycemic Mgmt Consult) 1 each N/A UD PRN; Protocol PRN Reason: Consult Stop: 06/09/22 05:02 Nadolol (Nadolol 40 Mg Tab) 10 mg PO QAM [facility] Stop: 06/09/22 08:59 Last Admin: 05/12/22 07:40 Dose: 10 mg Ondansetron HCl (Ondansetron Inj 2 Mg/Ml 2 Ml Vial) 4 mg IV Q6H PRN PRN Reason: Nausea Stop: 06/09/22 05:02 Polyethylene Glycol (Polyethylene (Miralax) 17 Gm Pack) 17 gm PO DAILY PRN PRN Reason: Constipation Stop: 06/09/22 05:02 Last Admin: 05/10/22 05:29 Dose: 17 gm Rosuvastatin Calcium (Rosuvastatin Calcium 20 Mg Tab) 40 mg PO HS [facility] Stop: 06/09/22 20:59 Last Admin: 05/11/22 20:43 Dose: 40 mg Sennosides (Senna 8.6 Mg Tab) 8.6 mg PO QAM [facility] Stop: 06/09/22 09:29 Last Admin: 05/12/22 07:41 Dose: 8.6 mg Sertraline HCl (Sertraline Hcl 50 Mg Tablet) 50 mg PO DAILY [facility] Stop: 06/09/22 08:59 Last Admin: 05/12/22 07:41 Dose: 50 mg
[2022-05-12] MEDS: LACTULOSE SYRUP 20 GM/30 ML UDC PO SCH (11:29)
--- NOTE | 2022-05-12 12:12 | Pharmacy Report ---
Pharmacy Glycemic Short Note 2 - Date of Service May 12, 2022 - Glycemic Short BSG Results (Last 24 hours): 05/11/22 05/11/22 05/12/22 16:49 20:13 05:52 Glucose 108 H POC Glucose 131 H 144 H 05/12/22 05/12/22 07:43 11:46 Glucose POC Glucose 115 H 200 H OUTPATIENT ANTIDIABETIC REGIMEN: * u-500 insulin 130 units SC AM and 20 units SC qPM (~@3pm) * Trulicity 4.5 mg SC weekly (Fridays) HbA1c: 7.5% (12/12/21) ASSESSMENT: * Patient's BSGs yesterday were [phone] mg/dL. Patient received 117 units of insulin (75 units of basal and 42 units of bolus). * Fasting today is 115 mg/dL. * Continue NPH dosing for now- 65 units in AM and 10 units in PM. Tighten CR since patient trended up significantly at lunch. BACKGROUND * EW is a 67 year old female who presented overnight with progressive weakness and persistent hyperglycemia * BSG > 500 mg/dL on presentation, attempted to manage with SC basal/bolus + IV bolus x 1, but this was unsuccessful * In light of persistent hyperglycemia, short-term insulin infusion initiated this morning * BSGs trended down nicely 417 -> 245 -> 189 mg/dL, will discontinue insulin infusion at 1530 today * Since outpatient U-500 is dosed BID, will attempt to utilize NPH insulin BIDM in place of the higher risk medication * ~50% of home dose in form of NPH + weight-based/stress of 2.5 dosing of Novolog PLAN FOR INPATIENT GLYCEMIC CONTROL: * Basal insulin * NPH 65 units SQ in morning * NPH 10 units SC with dinner * Bolus insulin * NovoLog per scale ACHS or Q6hrs while NPO * Goal Range: Low 110 mg/dL - High 140 mg/dL * Correction Factor: 15 mg/dL/unit * Nutritional / Prandial insulin per carb ratio of 1 unit per 4 grams CHO consumed
[2022-05-12] MEDS: SPIRONOLACTONE 100 MG TAB PO SCH (12:39)
[2022-05-12] MEDS: TORSEMIDE 100 MG TAB PO SCH (12:39)
--- NOTE | 2022-05-12 13:37 | Ultrasound Report ---
RENAL ULTRASOUND CLINICAL HISTORY: low back pain, weakness, eval pyelo COMPARISON STUDY: CT of the abdomen and pelvis September 24, 2020. TECHNIQUE: Sonography of the kidneys and the urinary bladder was performed. FINDINGS: The right kidney measures 11.6 cm in maximal dimension and the left measures 13.6 cm. No hy dronephrosis is present. No renal mass or calculus is identified by sonography. Bladder is collapsed and not well visualized. IMPRESSION: Unremarkable sonographic appearance of the kidneys. No hydronephrosis. ACT 112: Negative or not required by law. Electronically signed by: Umesh Clark M.D. 05/12/2022 1:35 PM
[2022-05-12] MEDS: ROSUVASTATIN CALCIUM 20 MG TAB PO SCH (20:01)
[2022-05-12] MEDS: DULoxetine HCL 60 MG CAP PO SCH (20:02)
[2022-05-13] MEDS: cefTRIAXone SODIUM 2,000 MG in DEXTROSE 5% 50 ML IV SCH (05:31)
[2022-05-13] MEDS: FAMOTIDINE 40 MG TABLET PO SCH (07:52)
[2022-05-13] MEDS: lisinopril 2.5 MG TAB PO SCH (07:52)
[2022-05-13] MEDS: SPIRONOLACTONE 100 MG TAB PO SCH (07:52)
[2022-05-13] MEDS: nadoloL 40 MG TAB PO SCH (07:52)
[2022-05-13] MEDS: LIDOCAINE 5% 1 PATCH TD SCH (07:53)
[2022-05-13] MEDS: EZETIMIBE 10 MG TABLET PO SCH (07:53)
[2022-05-13] MEDS: SENNA 8.6 MG TAB PO SCH (07:53)
[2022-05-13] MEDS: SERTRALINE HCL 50 MG TABLET PO SCH (07:53)
[2022-05-13] MEDS: DICLOFENAC SOD 1% GEL 100 GM TUBE EXT SCH ×4 (07:54→20:45)
[2022-05-13] MEDS: LACTULOSE SYRUP 20 GM/30 ML UDC PO SCH (07:54)
[2022-05-13] MEDS: DOCUSATE SODIUM 100 MG CAP PO SCH (07:55)
[2022-05-13] MEDS: INSULIN HUMAN NPH SC SCH ×2 (07:55→17:33)
--- NOTE | 2022-05-13 08:00 | Hospitalist Progress Note ---
Date of Service May 13, 2022 Assessment & Plan (1) Fall: Plan: fall w/o LOC/head trauma reported, admitted with BSGs in 400-500s did report R knee/ankle pain following fall --> obtained xray for initial eval, but do not expect acute fracture, possible soft tissue/swelling, maybe small effusion R knee --> small effusion. pain controlled on exam ECHO unchanged from prior xray lumbar spine no acute fx MRI head NEGATIVE -- reported year facial droop/slurred speech and hx brain bleeding in family/aneursym and concerns from patient/family Lyme checked/neg for possible bells No arrhythmia on monitor Speech consulted --> diet changed to slipper w/ thin liquids, maintain aspiration precautions. Will need outpt GI f/u for not only dilation, cancelled prior due to being ill, but also for f/u of her CIRRHOSIS (patient/family unaware, evidence even on EGD 2017 w/ Dr Dodge portal gastropathy, suspect related to NAFLD) Constipation -- issues w/ BMs. Started lactulose, reported +BM w/ such. Continue at discharge PT/OT consulted --> ok to return to [facility] when able Did consult cardiology during inpatient stay as suspected over diuresis (due to having increased diuretics outpatient/switching to metolazone 3x/wk) and patient reporting not knowing low salt/fluid restriction at home --> cardiology resumed patient's torsemide 100mg/spironolactone 100mg daily on 05/12, does appear a little more dehydrated/feeling fatigued 05/13 --> this afternoon, became hypotensive, +lightheaded/dizzy, +orthostatics --> bolus 250cc NSS x 2 provided --> discussed with cardiology about over diuresis, ok'd to decrease torsemide to 40mg for AM, but I did place on hold for now until eval in AM Monitor BP/hydration status in AM. Do suspect inpatient as we are controlling her salt intake/water, that diuretics may need adjusted outpatient but currently may be too much. No further metolazone recommended at d/c [facility] to have close f/u CHF clinic and are re-enrolling patient in [facility] at home Possible d/c tomorrow pending clinical course (2) Acute hyperglycemia: Plan: Patient w/ DM II A1c most recently 7.5 presented to ER w/ a fall at home as she was unable to get up. BSG >500. Labs by visiting nrusing w/ renal insufficiency and dehydration. Also w/ weakness. Patient reported BSGs difficult to control for last 2 weeks and drinking lots of fluids at senior living. Developed progressive weakness and had ground level fall this evening without head trauma or LOC. BSG was 592 when EMS arrived. Also feels constipated/bloated, passing gas but no good BM x 2 weeks. Typically on Humulin U-500, 130u breakfast, 20u lunch, Trulicity 1.5mg weekly (Fridays). BSGs 500s throughout the day over last 2 weeks. Recent PCP notes w/ malaise/polypharmacy. Weaned off sertraline, then nortriptyline. BSG 553 on arrival to ER. IVF and insulin gtt provided for BSGs into 300-400s, no anion gap/DKA A1c elevated to 8.9, prior 7.5 indicating worsened compliance vs dietary indiscretions -- see below. -Patient's sister does state she is compliant with insulin administration, so suspect dietary playing large role as well Will consult DM educator for additional support Encouraged patient to keep dietary log for follow up BSGs much improved, remains on 65u NPH AM, 15u PM. ISS --> discussed with pharmacist, her outpatient pharmacist was increasing the trulicity outpatient and decreasing the insulin with recent decreased PO intake from [facility] at independent living facility. --> Recommendations for at discharge per pharmacist's discussion for U-500 130u QAM, 30u @ 2pm/3pm --> will need changed on discharge (3) DM2 (diabetes mellitus, type 2): Plan: A1c worsened from prior, see above BSGs improved (4) Chronic diastolic heart failure: Plan: Hx of chronic diastolic HF, follows with [facility], Adrianna Garcia. ECHO Jun 2020 LV wall thick/midly increased, LA mildy enlarged. LV diastolic function moderately abn (grade II). Compared to prior, grade II diastolic and pulm HTN ECHO February 2022 in notes w/ LV 60-64%, mild aortic valve sclerosis, grade I diastolic dysfunction Most recent note from March 2022 w/ reported 22lb weight gain, possible medication non-compliance as 17 pills in piill pack but only taking 6 She had at that time gained 22lb since last visit which was end of february-- patient reported most of the weight gain/edema occurred in past week w/ worsening SOb/abd bloating (R leg open/sore) Typically on lisinopril 2.5mg daily, nadolol daily, spironolactone 100mg daily, metolazone 5mg M// ( additional as needed based on weights), torsemide 100mg daily Prior also on lasix 80mg 3x/week per PCP notes prior to switch to metolazone ECHO repeated, unchanged -weight fluctuations from 281/297lb, can lose 17lb in a day (likely from the metolazone if true), reported tremors/trouble with coordination/fingers getting locked up *Wt 267lb on admit, currently 272.8lb Had some slight increased LE edema 05/12, cards resumed diuretics as above Suspect diuretics too much, especially given suspicion for over diuresis with the 3x/wk metolazone recently added Slightly dry on exam, orthostatic this afternoon IV bolus x 2 for today, reduced torsemide for AM * Suspect HUGE aspect of noncompliance with diet/fluid restriction at home, may be able to further reduce diuretics outpatient pending compliance with dietary changes in follow up * Patient/sister without knowledge of sodium restriction/staying away from canned foods (reports using soup when not feeling well/other prepared items) * Also sister reported encouraging her to take in lots of water to stay hydrated. * Discussed fluid restriction and again in setting of cirrhosis that would not exceed 1500mL at least initially and monitor weights/take scale to next visit to ensure accurate * Also encouraged dietary log, and messaged nutrition to see about providing additional information Per discussion with cards, to have close f/u CHF clininc. Also being re-enrolled in [facility] at home. Encouraged continued discussions regarding diet/salt with cardiology office to stress importance Monitor I&O, weights in AM (5) Cirrhosis: Plan: Hx of, no alcohol use, suspect NAFLD/obesity suspect cause of her thrombocytopenia Hepatic cirrhosis and splenomegaly noted on CTAP September 2020, patient had EGD w/ evidence of portal gastropathy in [address] Watt On torsemide/spironolactone, also for CHF Continued spironolactone, reduced torsemide as above for overdiuresis On nadolol, presumably for such as well Lactulose scheduled daily to help with BMs given reports chronic constipation -- +BM. Would continue daily at discharge Will need outpt f/u GI for screening purposes. Prior EGD [address] Watt from [facility]. Also needs f/u for dilation as outlined above (6) UTI (urinary tract infection): Plan: UA appears infected Ceftriaxone IV (day 3) monitor urine cx -- pending --> normal jeffy, but did appear w/ sx and improving with treatment Ceftriaxone had been continued, repeat urine cx with pin-point growth, re-incubating Monitor repeat cx (7) Right knee pain: Plan: xray ordered -- effusion pain control reported pain controlled currently (8) Constipation: Plan: reported no BM in several days, no "good BM" in 2 weeks +good BM 05/11, 05/12 xray lumbar spine w/ stool burden ammonia checked given weakness/hx cirrhosis, not significant elevation however given lactulose x 1 to assist with BM, continue daily --> would continue lactulose PO at discharge to help with bowel movements given cirrhosis/weakness (9) Depression: Plan: Chronic. Stable Continue Duloxetine Continue Sertraline -- 50mg daily ordered per titration outpatient however may need to increase back to 100mg. depressed with all medical issues and wanting to know when she will start to feel like her old self. will increase for AM (10) GARRETT on CPAP: Plan: Continue CPAP qHS -- encouraged compliance (11) HTN (hypertension): Plan: controlled, home meds continued diuretics resumed by cardiology, Cr stable and BUN back to baseline however slightly dry as above, now hypotensive with +orthostatics IVF bolus ordered 250cc x 2 reduced torsemide to 40mg from 100mg for AM but will place spironolactone/torsemide on hold until evaluated in am (12) HLD (hyperlipidemia): Plan: Chronic. Stable on medications -Continue Crestor -Continue zetia (13) GERD (gastroesophageal reflux disease): Plan: Chronic. Stable -Continue PPI mag checked -- 1.6, 2gm IV provided (14) Low back pain: Plan: check lumbar spine xray-- NEGATIVE Repeat urine culture pin point growth, likely constipation and urinary tract contributing as well pain control -- got dose of toradol last evening continued lidocaine patch, voltaren prn, heat prn (15) Hypokalemia: Plan: prior, likely 2nd to metolazone/diuretic use at home replacement ordered, 3.8 on AM labs BMP in AM Plan continued inpatient stay reduced/placed diuretics on hold as above, 250cc x 2 NSS provided for +orthostat ics/dehydration on exam hopeful for d/c w/ HH tomorrow and [facility] at home to be arranged by cards Admission and Anticipated Discharge Date Admission Date: May 10, 2022 Subjective Eval this morning Initially was going to d/c w/ HH but patient with continued fatigue and states she'd feel more comfortable monitoring overnight and d/c in AM. Discussed labs stable, mag low 1.6 and replacement ordered. Lengthy discussion regarding low sodium/water restriction/heart failure/cirrhosis and compliance at discharge. BM w/ lactulose, discussed continuing daily for BM. Pain to back controlled with heating pad/voltaren and ordered medications. Imaging negative for acute fracture or pyelo. BSGs improved and working w/ pharmacy for plan for discharge for better sugar control and discussed compliance w/ carbs/diet at discharge and continued monitoring of sugars. Patient does endorse she looks at labels and they are high. Discussed keeping dietary log for follow up with her providers at discharge. Questions/concerns addressed at this time. Review of Systems Review of Systems: All systems reviewed & are unremarkable except as noted in HPI & below Physical Exam Physical Exam: General: WD, obese female, sitting up in recliner having breakfast, NAD, non-toxic in appearance, AA&O x 4 HEENT: head normocephalic, atraumatic, thick neck, no JVD, mm slightly dry Resp: CTAB, diminished in the bases, no w/c 99% on RA CV: RRR, systolic murmur, no pitting calf edema, trace pedal dependent edema, calves non-tender GI: +BS, nontender : no farley, MSK/Neuro: moves all extremities, strength b/l LE 4/5 with extension/flexion, finger to nose testing normal, no nystagmus R medial ankle tenderness, R knee incision well healed (improved from day prior) CN intact grossly --> exception appears possible slight bells palsy on the RIGHT vs facial droop (reported present for a year at least) tenderness to palpation along musculature lower back, improved from day prior with heating pad in place, no camden step off appreciated or hematoma/rash Psych: AOx3, pleasant and cooperative Skin: warm, dry Results & Data Results & Data ([facility]) Vital Signs (Past 12 Hours) Vital Signs Temp Pulse Pulse Resp BP Pulse Ox O2 Del Method 05/13/22 07:43 37.1 C 76 18 127/61 97 Room Air 05/13/22 04:45 36.6 C 77 18 105/63 96 Room Air 05/12/22 22:20 67 05/12/22 22:49 36.9 C 71 16 102/65 96 Room Air Laboratory Results 05/13/22 05/13/22 05/13/22 Range/Units 11:26 07:26 07:26 WBC (4.8-10.8) K/ul RBC (3.93-5.22) M/uL Hgb (12.0-16.0) g/dl Hct (34.1-44.9) % MCV (80.0-100.0) fL MCH (25.0-34.0) pg MCHC (32.0-36.0) g/dL RDW Std Deviation (36.4-46.3) fL RDW Coeff of Vanesa (11.5-14.5) % Plt Count (130-400) K/uL MPV (9.4-12.3) fL Platelet Estimate (Normal) Sodium 137 (136-145) mmol/L Potassium 3.6 (3.5-5.1) mmol/L Chloride 100 (98-107) mmol/L Carbon Dioxide 31 (21-32) mmol/L Anion Gap 6 (3-11) BUN 28 H (6-23) mg/dl Creatinine 1.03 (0.6-1.2) mg/dl Est Cr Clr Drug Dosing 70.1 ml/min Est GFR ( Amer) 65.1 ml/min Est GFR (Non-Af Amer) 56.2 ml/min BUN/Creatinine Ratio 27.2 H (10-20) Glucose 169 H (70-99(Fasting)) mg/dl POC Glucose 254 H (70-99) mg/dl Calcium 8.7 (8.5-10.1) mg/dl Magnesium 1.6 L (1.7-2.4) mg/dl Total Bilirubin 1.1 H (0.2-1.0) mg/dl AST 41 H (13-39) U/L ALT 23 (7-52) U/L Alkaline Phosphatase 67 (34-104) U/L Total Protein 6.7 (6.0-8.3) gm/dl Albumin 2.9 L (3.4-5.0) gm/dl Globulin 3.8 (2.5-4.0) gm/dl Albumin/Globulin Ratio 0.8 L (0.9-2) Vitamin B12 674 (180-914) pg/ml 05/13/22 05/13/22 05/12/22 Range/Units 07:26 07:22 19:53 WBC 7.29 (4.8-10.8) K/ul RBC 4.42 (3.93-5.22) M/uL Hgb 13.4 (12.0-16.0) g/dl Hct 38.9 (34.1-44.9) % MCV 88.0 (80.0-100.0) fL MCH 30.3 (25.0-34.0) pg MCHC 34.4 (32.0-36.0) g/dL RDW Std Deviation 45.0 (36.4-46.3) fL RDW Coeff of Vanesa 14.0 (11.5-14.5) % Plt Count 125 L (130-400) K/uL MPV 11.3 (9.4-12.3) fL Platelet Estimate Decreased L (Normal) Sodium (136-145) mmol/L Potassium (3.5-5.1) mmol/L Chloride (98-107) mmol/L Carbon Dioxide (21-32) mmol/L Anion Gap (3-11) BUN (6-23) mg/dl Creatinine (0.6-1.2) mg/dl Est Cr Clr Drug Dosing ml/min Est GFR ( Amer) ml/min Est GFR (Non-Af Amer) ml/min BUN/Creatinine Ratio (10-20) Glucose (70-99(Fasting)) mg/dl POC Glucose 152 H 164 H (70-99) mg/dl Calcium (8.5-10.1) mg/dl Magnesium (1.7-2.4) mg/dl Total Bilirubin (0.2-1.0) mg/dl AST (13-39) U/L ALT (7-52) U/L Alkaline Phosphatase (34-104) U/L Total Protein (6.0-8.3) gm/dl Albumin (3.4-5.0) gm/dl Globulin (2.5-4.0) gm/dl Albumin/Globulin Ratio (0.9-2) Vitamin B12 (180-914) pg/ml 05/12/22 Range/Units 16:44 WBC (4.8-10.8) K/ul RBC (3.93-5.22) M/uL Hgb (12.0-16.0) g/dl Hct (34.1-44.9) % MCV (80.0-100.0) fL MCH (25.0-34.0) pg MCHC (32.0-36.0) g/dL RDW Std Deviation (36.4-46.3) fL RDW Coeff of Vanesa (11.5-14.5) % Plt Count (130-400) K/uL MPV (9.4-12.3) fL Platelet Estimate (Normal) Sodium (136-145) mmol/L Potassium (3.5-5.1) mmol/L Chloride (98-107) mmol/L Carbon Dioxide (21-32) mmol/L Anion Gap (3-11) BUN (6-23) mg/dl Creatinine (0.6-1.2) mg/dl Est Cr Clr Drug Dosing ml/min Est GFR ( Amer) ml/min Est GFR (Non-Af Amer) ml/min BUN/Creatinine Ratio (10-20) Glucose (70-99(Fasting)) mg/dl POC Glucose 132 H (70-99) mg/dl Calcium (8.5-10.1) mg/dl Magnesium (1.7-2.4) mg/dl Total Bilirubin (0.2-1.0) mg/dl AST (13-39) U/L ALT (7-52) U/L Alkaline Phosphatase (34-104) U/L Total Protein (6.0-8.3) gm/dl Albumin (3.4-5.0) gm/dl Globulin (2.5-4.0) gm/dl Albumin/Globulin Ratio (0.9-2) Vitamin B12 (180-914) pg/ml PG Care Time/CCT Total # of Minutes Spent Total Time Spent with Patient: Total time spent is greater than 50% in coordination of care (as documented) at patient's floor/unit and/or counseling patient: Coding Level of Care Code 33665 Subseq Hosp Care Lvl 3 Diagnoses Fall W19.XXXA Acute hyperglycemia R73.9 DM2 (diabetes mellitus, type 2) E11.9 Chronic diastolic heart failure I50.32 Cirrhosis K74.60 UTI (urinary tract infection) N39.0 Right knee pain M25.561 Constipation K59.00 Depression F32.9 GARRETT on CPAP G47.33; Z99.89 HTN (hypertension) I10 HLD (hyperlipidemia) E78.5 GERD (gastroesophageal reflux disease) K21.9 Low back pain M54.50 Hypokalemia E87.6
[2022-05-13] MEDS: INSULIN ASPART PER UNIT SC SCH ×4 (08:04→20:44)
[2022-05-13 08:18] LABS: Hematocrit (blood only) 38.9 % (34.1-44.9); Hemoglobin 13.4 g/dl (12.0-16.0); Mean Corpuscular Hemoglobin 30.3 pg (25.0-34.0); Mean Corpuscular Hgb Conc 34.4 g/dL (32.0-36.0); Mean Platelet Volume 11.3 fL (9.4-12.3); Platelet Count 125 K/uL (130-400); Platelet Estimate Decreased (Normal); Red Blood Count 4.42 M/uL (3.93-5.22); White Blood Count 7.29 K/ul (4.8-10.8)
[2022-05-13 08:30] LABS: Albumin Globulin Ratio 0.8 (0.9-2); Albumin Level 2.9 gm/dl (3.4-5.0); BUN Creatinine Ratio 27.2 (10-20); Bilirubin,Total 1.1 mg/dl (0.2-1.0); Calcium 8.7 mg/dl (8.5-10.1); Creatinine Clr Calc Pharmacy 70.1 ml/min; Est GFR (African American) 65.1 ml/min; Est GFR (Non-African American) 56.2 ml/min; Globulin 3.8 gm/dl (2.5-4.0); Magnesium 1.6 mg/dl (1.7-2.4); Potassium 3.6 mmol/L (3.5-5.1); Total Protein 6.7 gm/dl (6.0-8.3)
[2022-05-13] MEDS: TORSEMIDE 100 MG TAB PO SCH (09:18)
[2022-05-13] MEDS: MAGNESIUM SULFATE / D5W 1 GM/100 ML BAG IV SCH ×2 (11:10→12:55)
[2022-05-13] MEDS ORDERED: SODIUM CHLORIDE 0.9% 1000ML 250 ML IV ONE ×3 (13:42→15:17)
--- NOTE | 2022-05-13 19:58 | Communication Note ---
Date of Service: May 13, 2022 Notified of supine BP 108/63, sitting 78/49, standing 68/44. This is markedly positive orthostatic hypotension. Torsemide 100mg had been provided this morning with future doses held per dayshift for hypotension during day that required 2 boluses of 250mL NSS. Will order q2 vitals and follow BP. Added low sodium to diet order. BP remained stable overnight consistently 105/62.
[2022-05-13] MEDS: ROSUVASTATIN CALCIUM 20 MG TAB PO SCH (20:47)
[2022-05-13] MEDS: DULoxetine HCL 60 MG CAP PO SCH (20:47)
[2022-05-14] MEDS: cefTRIAXone SODIUM 2,000 MG in DEXTROSE 5% 50 ML IV SCH (05:12)
[2022-05-14] MEDS: INSULIN ASPART PER UNIT SC SCH ×4 (08:24→21:01)
[2022-05-14] MEDS: INSULIN HUMAN NPH SC SCH ×2 (08:25→17:22)
[2022-05-14] MEDS: FAMOTIDINE 40 MG TABLET PO SCH (08:26)
[2022-05-14] MEDS: nadoloL 40 MG TAB PO SCH (08:26)
[2022-05-14] MEDS: SERTRALINE HCL 100 MG TABLET PO SCH (08:26)
[2022-05-14] MEDS: EZETIMIBE 10 MG TABLET PO SCH (08:26)
[2022-05-14] MEDS: SENNA 8.6 MG TAB PO SCH (08:27)
[2022-05-14] MEDS: lisinopril 2.5 MG TAB PO SCH (08:28)
[2022-05-14] MEDS: LACTULOSE SYRUP 20 GM/30 ML UDC PO SCH (08:28)
[2022-05-14] MEDS: DICLOFENAC SOD 1% GEL 100 GM TUBE EXT SCH ×4 (08:28→21:03)
[2022-05-14] MEDS: LIDOCAINE 5% 1 PATCH TD SCH (08:29)
[2022-05-14] MEDS ORDERED: TORSEMIDE 10 MG TAB PO SCH (09:00)
[2022-05-14 09:07] LABS: Hematocrit (blood only) 37.5 % (34.1-44.9); Hemoglobin 12.9 g/dl (12.0-16.0); Mean Corpuscular Hemoglobin 30.4 pg (25.0-34.0); Mean Corpuscular Hgb Conc 34.4 g/dL (32.0-36.0); Mean Corpuscular Volume 88.4 fL (80.0-100.0); Mean Platelet Volume 11.4 fL (9.4-12.3); Platelet Count 100 K/uL (130-400); RDW Coefficient of Variation 14.3 % (11.5-14.5); RDW Standard Deviation 45.8 fL (36.4-46.3); Red Blood Count 4.24 M/uL (3.93-5.22); White Blood Count 6.16 K/ul (4.8-10.8)
[2022-05-14 09:32] LABS: Albumin Globulin Ratio 0.8 (0.9-2); Albumin Level 2.8 gm/dl (3.4-5.0); BUN Creatinine Ratio 27.5 (10-20); Bilirubin,Total 0.9 mg/dl (0.2-1.0); Calcium 8.6 mg/dl (8.5-10.1); Est GFR (African American) 65.9 ml/min; Est GFR (Non-African American) 56.9 ml/min; Globulin 3.7 gm/dl (2.5-4.0); Magnesium 1.7 mg/dl (1.7-2.4); Potassium 3.6 mmol/L (3.5-5.1); Total Protein 6.5 gm/dl (6.0-8.3)
--- NOTE | 2022-05-14 14:11 | Pharmacy Report ---
Pharmacy Glycemic Short Note 2 - Date of Service May 14, 2022 - Glycemic Short BSG Results (Last 24 hours): 05/13/22 05/13/22 05/14/22 16:32 20:16 07:32 Glucose POC Glucose 134 H 84 133 H 05/14/22 05/14/22 08:41 11:29 Glucose 203 H POC Glucose 205 H OUTPATIENT ANTIDIABETIC REGIMEN: * u-500 insulin 130 units SC AM and 20 units SC qPM (~@3pm) * Trulicity 4.5 mg SC weekly (Fridays) HbA1c: 7.5% (12/12/21) ASSESSMENT: 05/14/22 * Patient's BSGs yesterday were [phone] mg/dL. Today's BSGs are 133-205 mg/dL. * Patient received 131 mg/dL (80 units of basal and 51 units of bolus). * Continue NPH as fasting is steady. * Will tighten CR at breakfast and loosen at all other meals as lunch BSG is chronically high. 05/13/22 * Patient's BSGs yesterday were [phone] mg/dL. Patient received 117 units of insulin (75 units of basal and 42 units of bolus). * Fasting today is 115 mg/dL. * Continue NPH dosing for now- 65 units in AM and 10 units in PM. Tighten CR since patient trended up significantly at lunch. BACKGROUND * EW is a 67 year old female who presented overnight with progressive weakness and persistent hyperglycemia * BSG > 500 mg/dL on presentation, attempted to manage with SC basal/bolus + IV bolus x 1, but this was unsuccessful * In light of persistent hyperglycemia, short-term insulin infusion initiated this morning * BSGs trended down nicely 417 -> 245 -> 189 mg/dL, will discontinue insulin infusion at 1530 today * Since outpatient U-500 is dosed BID, will attempt to utilize NPH insulin BIDM in place of the higher risk medication * ~50% of home dose in form of NPH + weight-based/stress of 2.5 dosing of Novolog PLAN FOR INPATIENT GLYCEMIC CONTROL: * Basal insulin * NPH 65 units SQ in morning * NPH 15 units SC with dinner * Bolus insulin * NovoLog per scale ACHS or Q6hrs while NPO * Goal Range: Low 110 mg/dL - High 140 mg/dL * Correction Factor: 15 mg/dL/unit * Nutritional / Prandial insulin per carb ratio of 1 unit per 4 grams CHO consumed (1 unit per 2 grams CHO consumed at breakfast)
--- NOTE | 2022-05-14 14:12 | Hospitalist Progress Note ---
Date of Service May 14, 2022 Assessment & Plan (1) Fall: Plan: fall w/o LOC/head trauma reported, admitted with BSGs in 400-500s - did report R knee/ankle pain following fall --> obtained xray for initial eval, but do not expect acute fracture, possible soft tissue/swelling, maybe small effusion R knee --> small effusion. pain controlled on exam - ECHO unchanged from prior - xray lumbar spine no acute fx - MRI head NEGATIVE - No arrhythmia on monitor - PT/OT consulted --> ok to return to [facility] (lives independently in senior apartment behind facility) when able with home health - Did consult cardiology during inpatient stay as suspected over diuresis (due to having increased diuretics outpatient/switching to metolazone 3x/wk) and patient reporting not knowing low salt/fluid restriction at home * cardiology resumed patient's torsemide 100mg/spironolactone 100mg daily on 05/12, however appeared dehydrated/feeling fatigued 05/13 with associated +orthostatics * Received 2 fluid boluses 250 cc of NS on 05/13 and diuretics were placed on hold * Upon d/c would reduce Torsemide to 40mg daily and continue the Spironolactone 100mg daily, Metolazone stopped * Likely that she has a lot of dietary/fluid NONcompliance at home which is why she is seemingly overdiuresed in the hospital-cardiology to see in f/u on 05/15 - [employer] cards to have close f/u CHF clinic and are re-enrolling patient in [facility] (2) Acute hyperglycemia: Plan: Patient w/ DM II and A1c most recently 7.5% presented to ER w/ a fall at home as she was unable to get up. BSG >500. Labs by visiting nursing w/ renal insufficiency and dehydration. Typically on Humulin U-500, 130u breakfast, 20u lunch, Trulicity 1.5mg weekly (Fridays). BSGs 500s throughout the day over last 2 weeks. Recent PCP notes w/ malaise/polypharmacy. Weaned off sertraline, then nortriptyline. IVF and insulin gtt provided for BSGs into 300-400s, no anion gap/DKA A1c elevated to 8.9, prior 7.5 indicating worsened compliance vs dietary indiscretions -- see below. - Patient's sister does state she is compliant with insulin administration, so suspect dietary playing large role as well - Will consult DM educator for additional support, encouraged patient to keep dietary log for follow up - BSGs much improved, remains on 65u NPH AM, 15u PM. ISS --> discussed with pharmacist, her outpatient pharmacist was increasing the trulicity and decreasing the insulin with recent decreased PO intake from COVID at independent living facility. Recommendations for at discharge per pharmacist's discussion for U-500 130u QAM, 30u @ 2pm/3pm --> will need changed on discharge (3) Chronic diastolic heart failure: Plan: Hx of chronic diastolic HF, follows with [facility], Adrianna Quispe - ECHO February 2022 in notes w/ LV 60-64%, mild aortic valve sclerosis, grade I diastolic dysfunction - Most recent note from March 2022 w/ reported 22lb weight gain, possible medication non-compliance as 17 pills in pill pack but only taking 6 - Typically on lisinopril 2.5mg daily, nadolol daily, spironolactone 100mg daily, metolazone 5mg M/W/ (additional as needed based on weights), torsemide 100mg daily - Had some slight increased LE edema 05/12, cards resumed diuretics as above - Suspect diuretics too much, especially given suspicion for over diuresis with the 3x/wk metolazone recently added-adjustments as above (4) Cirrhosis: Plan: Hx of, no alcohol use, suspect NAFLD/obesity suspect cause of her thrombocytopenia Hepatic cirrhosis and splenomegaly noted on CTAP September 2020, patient had EGD w/ evidence of portal gastropathy in [address] Watt On torsemide/spironolactone, also for CHF Keep total fluid intake no more than 1500 ml per day On nadolol, presumably for such as well Lactulose scheduled daily to help with BMs given reports chronic constipation -- +BM. Would continue Lactulose daily at discharge Will need outpt f/u GI for screening purposes. Prior EGD [address] Watt from [facility]. Also needs f/u for dilation as outlined above (5) UTI (urinary tract infection): Plan: - UA appears infected - Ceftriaxone IV (day 4) - monitor urine cx -- pending --> normal jeffy, but did appear w/ sx and improving with treatment - 4 days of IV Rocephin is sufficient for treatment of uncomplicated UTI, will stop (6) Right knee pain: Plan: xray ordered -- effusion pain control reported pain controlled currently (7) Constipation: Plan: reported no BM in several days, no "good BM" in 2 weeks +good BM 05/11, 05/12 - xray lumbar spine w/ stool burden - ammonia checked given weakness/hx cirrhosis, not significant elevation however given lactulose x 1 to assist with BM, continue daily (8) Depression: Plan: Chronic. Stable - Continue Duloxetine - Continue Sertraline -- 50mg daily ordered per titration outpatient however due to depression sx was increased back to 100mg by previous provider (9) GARRETT on CPAP: Plan: Continue CPAP qHS -- encouraged compliance (10) HTN (hypertension): Plan: Controlled - takes Lisinopril 2.5mg, Nadolol, and diuretics (Torsemide, Spironolactone, Metolazone) prior to admit diuretics resumed by cardiology, Cr stable and BUN back to baseline however slightly dry as above, now hypotensive with +orthostatics BPs soft, diuretics on hold - will continue to monitor (11) HLD (hyperlipidemia): Plan: Chronic. Stable on medications -Continue Crestor -Continue zetia (12) GERD (gastroesophageal reflux disease): Plan: Chronic. Stable - Continue PPI Plan Repeat orthostatics today were WNL until patient worked with OT who documented positive orthostatics. Will plan to continue holding diuretics, no further IVF, cards to reevaluate on 05/15. However, would repeat orthostatics on 05/15, if WNL, can d/c home with home health. Plan d/w Dr. Harjeet Umana. Admission and Anticipated Discharge Date Admission Date: May 10, 2022 Subjective Patient seen on daily rounds this morning. She denies feeling dizzy or lightheaded. She was initially hospitalized due to fall with no LOC and found to have hyperglycemia which has resolved. Over the last 24 hours, she is having is sues with orthostatic hypotension. Diuretics have been placed on hold and she has received a total of 500 cc of IVF on 05/13. Pt denies cp or dyspnea. During OT session today, pt's Bp dropped from 93 systolic to 73 systolic but recovered after walking to the bathroom and sitting down in bedside chair to 128/71. Review of Systems Review of Systems: All systems reviewed and are unremarkable except as noted in HPI and below. Denies fever, chills, fatigue, headache, nasal congestion, sore throat, cough, chest pain, shortness of breath, palpitations, orthopnea, PND, abdominal pain, n/v/d, constipation, dysuria, hematuria, frequency, back pain, joint pain or swelling, easy bruising or bleeding, skin lesions or rashes. Physical Exam Physical Exam: GENERAL: 67 yo obese Well-developed, well-nourished WF. NAD. LUNGS: Clear to auscultation bilaterally. No W/R/R. CARDIOVASCULAR: Regular rate and rhythm. 2/6 ANNETTE ABDOMEN: Soft, non-tender and non-distended. BS normoactive x 4 quad. EXTREMITIES: No edema. Non-tender. Peripheral pulses +2/4. NEUROLOGIC: A&O x3. PSYCHIATRIC: Cooperative. Appropriate mood and affect. SKIN: Warm, dry, intact. No rashes or lesions. Results & Data Results & Data ([facility]) Vital Signs (Past 12 Hours) Vital Signs Temp Pulse Pulse Resp BP Pulse Ox O2 Del Method 05/14/22 11:15 36.5 C 18 97 Room Air 05/14/22 08:00 Room Air 05/14/22 07:37 36.7 C 69 18 93/51 L 96 Room Air 05/14/22 07:11 70 05/14/22 05:00 105/62 05/14/22 03:07 36.7 C 73 16 116/66 91 Room Air Laboratory Results 05/14/22 08:41 05/14/22 08:41 PG Care Time/CCT Total # of Minutes Spent Total Time Spent with Patient: Total time spent is greater than 50% in coordination of care (as documented) at patient's floor/unit and/or counseling patient: Coding Level of Care Code 97550 Subseq Hosp Care Lvl 2 Diagnoses Fall W19.XXXA Acute hyperglycemia R73.9 Chronic diastolic heart failure I50.32 Cirrhosis K74.60 UTI (urinary tract infection) N39.0 Right knee pain M25.561 Constipation K59.00 Depression F32.9 GARRETT on CPAP G47.33; Z99.89 HTN (hypertension) I10 HLD (hyperlipidemia) E78.5 GERD (gastroesophageal reflux disease) K21.9
[2022-05-14] MEDS: DULoxetine HCL 60 MG CAP PO SCH (21:07)
[2022-05-14] MEDS: ROSUVASTATIN CALCIUM 20 MG TAB PO SCH (21:07)
[2022-05-15] MEDS ORDERED: INSULIN ASPART PER UNIT SC SCH (07:30)
[2022-05-15] MEDS: INSULIN HUMAN NPH SC SCH (08:40)
[2022-05-15] MEDS: LIDOCAINE 5% 1 PATCH TD SCH (08:41)
[2022-05-15] MEDS: SERTRALINE HCL 100 MG TABLET PO SCH (08:43)
[2022-05-15] MEDS: LACTULOSE SYRUP 20 GM/30 ML UDC PO SCH (08:43)
[2022-05-15] MEDS: SENNA 8.6 MG TAB PO SCH (08:43)
[2022-05-15] MEDS: DICLOFENAC SOD 1% GEL 100 GM TUBE EXT SCH ×2 (08:43→12:21)
[2022-05-15] MEDS: EZETIMIBE 10 MG TABLET PO SCH (08:44)
[2022-05-15] MEDS: lisinopril 2.5 MG TAB PO SCH (08:44)
[2022-05-15] MEDS: nadoloL 40 MG TAB PO SCH (08:45)
[2022-05-15] MEDS: FAMOTIDINE 40 MG TABLET PO SCH (08:45)
--- NOTE | 2022-05-15 10:03 | Hospitalist Progress Note ---
Date of Service May 15, 2022 Assessment & Plan (1) Fall: Plan: fall w/o LOC/head trauma reported, admitted with BSGs in 400-500s - did report R knee/ankle pain following fall --> obtained xray for initial eval, but do not expect acute fracture, possible soft tissue/swelling, maybe small effusion R knee --> small effusion. pain controlled on exam - ECHO unchanged from prior - xray lumbar spine no acute fx - MRI head NEGATIVE - No arrhythmia on monitor - PT/OT consulted --> ok to return to [facility] (lives independently in senior apartment behind facility) when able with home health - Did consult cardiology during inpatient stay as suspected over diuresis (due to having increased diuretics outpatient/switching to metolazone 3x/wk) and patient reporting not knowing low salt/fluid restriction at home * cardiology resumed patient's torsemide 100mg/spironolactone 100mg daily on 05/12, however appeared dehydrated/feeling fatigued 05/13 with associated +orthostatics * Received 2 fluid boluses 250 cc of NS on 05/13 and diuretics were placed on hold * Upon d/c would reduce Torsemide to 40mg daily and continue the Spironolactone 100mg daily, Metolazone stopped * Likely that she has a lot of dietary/fluid NONcompliance at home which is why she is seemingly overdiuresed in the hospital-cardiology to see in f/u on 05/15 - [employer] cards to have close f/u CHF clinic and [facility] -Patient asymptomatic and with no significant orthostasis on day of discharge. -Patient educated on taking her time sitting up and getting out of bed. Also educated on taking her time to stand up. (2) Acute hyperglycemia: Plan: Patient w/ DM II and A1c most recently 7.5% presented to ER w/ a fall at home as she was unable to get up. BSG >500. Labs by visiting nursing w/ renal insufficiency and dehydration. Typically on Humulin U-500, 130u breakfast, 20u lunch, Trulicity 1.5mg weekly (Fridays). BSGs 500s throughout the day over last 2 weeks. Recent PCP notes w/ malaise/polypharmacy. Weaned off sertraline, then nortriptyline. IVF and insulin gtt provided for BSGs into 300-400s, no anion gap/DKA A1c elevated to 8.9, prior 7.5 indicating worsened compliance vs dietary indiscretions -- see below. - Patient's sister does state she is compliant with insulin administration, so suspect dietary playing large role as well - Will consult DM educator for additional support, encouraged patient to keep dietary log for follow up - BSGs much improved, remains on 65u NPH AM, 15u PM. ISS --> discussed with pharmacist, her outpatient pharmacist was increasing the trulicity and decreasing the insulin with recent decreased PO intake from COVID at [facility]. Recommendations for at discharge per pharmacist's discussion for U-500 130u QAM, 30u @ 2pm/3pm --> will need changed on discharge. Follow-up with primary care physician (3) Chronic diastolic heart failure: Plan: Hx of chronic diastolic HF, follows with [facility], Adrianna Quispe - ECHO February 2022 in notes w/ LV 60-64%, mild aortic valve sclerosis, grade I diastolic dysfunction - Most recent note from March 2022 w/ reported 22lb weight gain, possible medication non-compliance as 17 pills in pill pack but only taking 6 - Typically on lisinopril 2.5mg daily, nadolol daily, spironolactone 100mg daily, metolazone 5mg // (additional as needed based on weights), torsemide 100mg daily - Had some slight increased LE edema 05/12, cards resumed diuretics as above - Suspect diuretics too much, especially given suspicion for over diuresis with the 3x/wk metolazone recently added-adjustments as above -Discontinue metolazone and decrease torsemide from 100 mg p.o. daily to 40 mg p.o. daily -Patient advised to monitor her weight and report her primary care physician with any changes. (4) Cirrhosis: Plan: Hx of, no alcohol use, suspect NAFLD/obesity suspect cause of her thrombocytopenia Hepatic cirrhosis and splenomegaly noted on CTAP September 2020, patient had EGD w/ evidence of portal gastropathy in [address] Watt On torsemide/spironolactone, also for CHF Keep total fluid intake no more than 1500 ml per day On nadolol, presumably for such as well Lactulose scheduled daily to help with BMs given reports chronic constipation -- +BM. Would continue Lactulose daily at discharge Will need outpt f/u GI for screening purposes. Prior EGD [address] Watt from [facility]. Also needs f/u for dilation as outlined above (5) UTI (urinary tract infection): Plan: - UA appears infected - Ceftriaxone IV while inpatient - monitor urine cx -- pending --> normal jeffy, but did appear w/ sx and improving with treatment - 4 days of IV Rocephin is sufficient for treatment of uncomplicated UTI, will stop (6) Right knee pain: Plan: xray ordered -- effusion pain control reported pain controlled currently Outpatient management (7) Constipation: Plan: reported no BM in several days, no "good BM" in 2 weeks +good BM 05/11, 05/12 - xray lumbar spine w/ stool burden - ammonia checked given weakness/hx cirrhosis, not significant elevation however given lactulose x 1 to assist with BM (8) Depression: Plan: Chronic. Stable - Continue Duloxetine - Continue Sertraline -- 50mg daily ordered per titration outpatient however due to depression sx was increased back to 100mg by previous provider (9) GARRETT on CPAP: Plan: Continue CPAP qHS -- encouraged compliance (10) HTN (hypertension): Plan: Controlled - takes Lisinopril 2.5mg, Nadolol, and diuretics (Torsemide, Spironolactone, Metolazone) prior to admit diuretics resumed by cardiology, Cr stable and BUN back to baseline however slightly dry as above, now hypotensive with +orthostatics BPs soft, diuretics on hold - will continue to monitor Decrease torsemide from 100 mg p.o. daily to 40 mg p.o. daily. Discontinue meto lazone (11) HLD (hyperlipidemia): Plan: Chronic. Stable on medications -Continue Crestor -Continue zetia (12) GERD (gastroesophageal reflux disease): Plan: Chronic. Stable - Continue PPI Plan Discharge home today. Admission and Anticipated Discharge Date Admission Date: May 10, [address] Campbell Patient mated 05/10/2022 for hyperglycemia. BSG on admission was 553. She was initially started on insulin drip. This has been resolved. She developed progr essive weakness and difficulty ambulating. She lives in a independent living situation behind [facility] with home health. Patient currently is having diuretics held. She continues with orthostasis. Orthostatic blood pressures were checked again and there was no significant drop in blood pressure and heart rate was not elevated. Patient was asymptomatic and denied any lightheadedness or dizziness with sitting and standing. Patient does live in a private apartment right behind [facility] and has access to [facility]. Patient denies any other acute changes. She feels ready for discharge. She states that family is available to pick her up after 2 PM today to transport her home. Review of Systems Review of Systems: A total of 10 systems was reviewed and is negative other than as listed in the HPI Physical Exam Physical Exam: GENERAL : No acute distress. Flat affect EYES: No icterus, gaze conjugate NOSE: No evidence of epistaxis MOUTH: No lesions or candidiasis NECK: Supple LUNGS: CTA B/L, no wheezes, rales or rhonchi HEART: Regular, rate controlled ABDOMEN: Soft, NT, ND, BS Present EXTREMITIES: No LE edema, pedal pulses intact NEURO: A&OX3 Results & Data Results & Data ([facility]) Vital Signs (Past 12 Hours) Vital Signs Temp Pulse Pulse Resp BP Pulse Ox O2 Del Method 05/15/22 08:40 102/68 05/15/22 07:40 36.7 C 73 18 91/54 L 96 Room Air 05/15/22 07:02 69 05/15/22 03:57 36.7 C 70 16 92/56 L 96 Room Air 05/14/22 23:30 36.7 C 84 16 117/64 96 Room Air 05/14/22 23:18 69 Critical Care Results & Data Vital Signs (Past 12 Hours) Vital Signs Temp Pulse Pulse Resp BP Pulse Ox O2 Del Method 05/15/22 08:40 102/68 05/15/22 07:40 36.7 C 73 18 91/54 L 96 Room Air 05/15/22 07:02 69 05/15/22 03:57 36.7 C 70 16 92/56 L 96 Room Air 05/14/22 23:30 36.7 C 84 16 117/64 96 Room Air 05/14/22 23:18 69 Lab & Micro Results (Past 24 Hours) No Data to Display No Data to Display No Data to Display Microbiology 05/12/22 11:24 Aerobic Blood Culture - Preliminary Blood No growth in Aerobic bottle after 48 hours. Anaerobic Blood Culture - Final 05/12/22 11:07 Aerobic Blood Culture - Preliminary Blood No growth in Aerobic bottle after 48 hours. Anaerobic Blood Culture - Preliminary No growth in Anaerobic bottle after 48 hours. I & O Totals 24 Hours 05/14/22 05/15/22 05/16/22 06:59 06:59 06:59 Intake Total 1962.5 / 1962.5 1245 / 1245 Output Total 1875 / 1875 1040 / 1040 Balance 87.5 / 87.5 205 / 205 Cumulative 05/09/22 23:10 thru 05/15/22 06:19 Intake Total 9581.023 Output Total 4466 Balance 5115.023 RT Ventilator Mngmt (Last Documented) Ventilator Ordered Settings Respiratory Rate 18 05/15/22 07:40 Ventilator - PT Measurements Respiratory Rate 18 PG Care Time/CCT Total # of Minutes Spent Total Time Spent with Patient: Total time spent is greater than 50% in coordination of care (as documented) at patient's floor/unit and/or counseling patient: Coding Level of Care Code None Diagnoses Fall W19.XXXA Acute hyperglycemia R73.9 Chronic diastolic heart failure I50.32 Cirrhosis K74.60 UTI (urinary tract infection) N39.0 Right knee pain M25.561 Constipation K59.00 Depression F32.9 GARRETT on CPAP G47.33; Z99.89 HTN (hypertension) I10 HLD (hyperlipidemia) E78.5 GERD (gastroesophageal reflux disease) K21.9 Comment No charge for this note. Please see discharge summary
[2022-05-15] MEDS: INSULIN ASPART PER UNIT SC SCH (12:19)
--- NOTE | 2022-05-15 12:54 | Cardiology Progress Note ---
Date of Service May 15, 2022 Assessment & Plan (1) Acute hyperglycemia: (2) Chronic diastolic heart failure: (3) Acute dehydration: Plan Patient admitted for weakness, dehydration, hyperglycemia. Diuretics held on admission. cardio consult for diuretic management/advice on discharge. We attempted to resume lower dose diuretics, but patient developed dizziness and orthostasis. At this time, given low BP, will continue to hold diuretics on discharge. Anticipate needing to resume therapies within 3-5 days when she returns home as she is often non compliant with fluid restriction or low sodium diet. this can be followed by [facility]. Likely will need to resume lower dose torsemide, possible 20 mg with spironolactone 25 mg within a week or so of discharge. Echo with stable findings, preserved LVEF, grade I diastolic dysfunction. PT/OT recommended. Stable for discharge from cardiac perspective. Will arrange f/u within 1-2 weeks at [facility] Cardio[facility]CHF clinic and will need close f/u with [facility] to monitor fluid status and glucose levels and assist with discharge meds Admission and Anticipated Discharge Date Admission Date: May 10, 2022 Supervising Physician Co-Signing Physician Notes Patient seen and chart reviewed. Plan as outlined above. Slowly improving, currently not volume overloaded Will likely require resumption of diuretics post discharge Subjective Patient evaluated while resting in chair comfortably. notes mild nausea this morning. No recurrent dizziness or lightheadedness. She feels fatigued but admits to poor sleep here at the hospital. hopeful for discharge today. Denies chest pain or dyspnea. No increased edema. WEight is down. Review of Systems Review of Systems: All systems reviewed & are unremarkable except as noted in HPI & below Physical Exam Constitutional: WD/WN, vitals as above + obese; no acute distress Neck: trachea midline, no thyromegaly Cardiovascular: Rate/Rhythm: regular rate and regular rhythm Heart Sounds: + murmur (II/ systolic murmur) Vessels: no JVD Extremities: + edema (Trace pretibial edema) Gastrointestinal (Abdomen): normal bowel sounds, soft, nontender, no hepatosplenomegaly Neurologic: PERRL, EOMI, accommodation nl, no face palsy, no dysarthria Results & Data ([facility]) Vital Signs (Past 12 Hours) Vital Signs Temp Pulse Pulse Resp BP Pulse Ox O2 Del Method 05/15/22 08:40 102/68 05/15/22 07:40 36.7 C 73 18 91/54 L 96 Room Air 05/15/22 07:02 69 05/15/22 03:57 36.7 C 70 16 92/56 L 96 Room Air Laboratory Results Intake and Output 05/14/22 05/15/22 05/15/22 22:59 06:59 14:59 Intake Total 480 / 1245 Output Total 740 / 1040 Balance -260 / 205 Intake: Oral 480 / 1245 Output: Urine 740 / 1040 Other: Weight 123 kg Weight Measurement Method Standing Scale Diagnostic Findings Telemetry reviewed: NSR in the 70's. no arrhythmias Medications Administered Current Inpatient Medications Acetaminophen (Acetaminophen 325 Mg Tab) 650 mg PO Q4H PRN PRN Reason: pain/fever Stop: 06/09/22 05:02 Last Admin: 05/11/22 23:07 Dose: 650 mg Albuterol (Albuterol Hfa 8 Gm Inhaler) 2 puffs INH Q4 PRN PRN Reason: Shortness Of Breath Or Wheezing Stop: 06/09/22 05:02 Bisacodyl (Bisacodyl 10 Mg Supp) 10 mg OK DAILY PRN PRN Reason: Constipation Stop: 06/09/22 05:02 Dextrose (Dextrose 50% 50 Ml Syringe) 25 - 50 ml IV UD PRN; Protocol PRN Reason: Hypoglycemia Protocol Stop: 06/09/22 05:02 Diclofenac Sodium (Diclofenac Sod 1% Gel 100 Gm Tube) 2 gm EXT QID TEMI; Protocol Stop: 06/10/22 16:59 Last Admin: 05/15/22 12:21 Dose: 2 gm Docusate Sodium (Docusate Sodium 100 Mg Cap) 100 mg PO BID PRN PRN Reason: Constipation Stop: 06/09/22 05:02 Last Admin: 05/10/22 05:29 Dose: 100 mg Docusate Sodium (Docusate Sodium 100 Mg Cap) 100 mg PO BID TEMI Stop: 06/09/22 09:29 Last Admin: 05/13/22 07:55 Dose: 100 mg Duloxetine HCl (Duloxetine Hcl 60 Mg Cap) 60 mg PO HS TEMI Stop: 06/09/22 20:59 Last Admin: 05/14/22 21:07 Dose: 60 mg Ezetimibe (Ezetimibe 10 Mg Tablet) 10 mg PO DAILY TEMI Stop: 06/09/22 08:59 Last Admin: 05/15/22 08:44 Dose: 10 mg Famotidine (Famotidine 40 Mg Tablet) 40 mg PO QAM [facility]I Stop: 06/09/22 08:59 Last Admin: 05/15/22 08:45 Dose: 40 mg Glucagon (Glucagon For Inj 1 Mg Vial) 1 mg SQ UD PRN; Protocol PRN Reason: Hypoglycemia Protocol Stop: 06/09/22 05:02 Glucose (Glucose 40% Gel 15 Gm Tube) 15 - 30 gm PO UD PRN; Protocol PRN Reason: Hypoglycemia Protocol Stop: 06/09/22 05:02 Glucose (Glucose 10 Tab/Tube) 4 - 8 tab PO UD PRN; Protocol PRN Reason: Hypoglycemia Treatment Stop: 06/09/22 05:02 Insulin Aspart (Insulin Aspart Per Unit) 0 units SC DAILY@0730 [facility] Stop: 06/14/22 07:29 Last Admin: 05/15/22 08:40 Dose: 15 units Insulin Aspart (Insulin Aspart Per Unit) 0 units SC TID@1130,1630,2100 [facility] Stop: 06/13/22 16:29 Last Admin: 05/15/22 12:19 Dose: 19 units Insulin Human NPH (Insulin Human Nph) 65 units SC DAILY@0800 [facility] Stop: 06/11/22 07:59 Last Admin: 05/15/22 08:40 Dose: 65 units Insulin Human NPH (Insulin Human Nph) 15 units SC DAILY@1700 [facility] Stop: 06/12/22 16:59 Last Admin: 05/14/22 17:22 Dose: 15 units Lactulose (Lactulose Syrup 20 Gm/30 Ml Udc) 20 gm PO DAILY [facility] Stop: 06/11/22 10:19 Last Admin: 05/15/22 08:43 Dose: 20 gm Lidocaine (Lidocaine 5% 1 Patch) 1 patch TD QAM [facility] Stop: 06/10/22 10:29 Last Admin: 05/15/22 08:41 Dose: 1 patch Lisinopril (Lisinopril 2.5 Mg Tab) 2.5 mg PO QAM [facility] Stop: 06/09/22 08:59 Last Admin: 05/15/22 08:44 Dose: 2.5 mg Miscellaneous (Carbohydrates For Hypoglycemia ) 15 - 30 gm PO UD PRN PRN Reason: Hypoglycemia Protocol Stop: 06/09/22 05:02 Miscellaneous (Remove Lidoderm Patch) 1 each N/A DAILY@2100 [facility] Stop: 06/10/22 20:59 Last Admin: 05/14/22 21:06 Dose: 1 each Miscellaneous Information (Pharmacy Glycemic Mgmt Consult) 1 each N/A UD PRN; Protocol PRN Reason: Consult Stop: 06/09/22 05:02 Nadolol (Nadolol 40 Mg Tab) 10 mg PO QAM [facility] Stop: 06/09/22 08:59 Last Admin: 05/15/22 08:45 Dose: 10 mg Ondansetron HCl (Ondansetron Inj 2 Mg/Ml 2 Ml Vial) 4 mg IV Q6H PRN PRN Reason: Nausea Stop: 06/09/22 05:02 Polyethylene Glycol (Polyethylene (Miralax) 17 Gm Pack) 17 gm PO DAILY PRN PRN Reason: Constipation Stop: 06/09/22 05:02 Last Admin: 05/10/22 05:29 Dose: 17 gm Rosuvastatin Calcium (Rosuvastatin Calcium 20 Mg Tab) 40 mg PO HS [facility] Stop: 06/09/22 20:59 Last Admin: 05/14/22 21:07 Dose: 40 mg Sennosides (Senna 8.6 Mg Tab) 8.6 mg PO QAM [facility] Stop: 06/09/22 09:29 Last Admin: 05/15/22 08:43 Dose: 8.6 mg Sertraline HCl (Sertraline Hcl 100 Mg Tablet) 100 mg PO DAILY [facility] Stop: 06/13/22 08:59 Last Admin: 05/15/22 08:43 Dose: 100 mg Spironolactone (Spironolactone 100 Mg Tab) 100 mg PO QAM [facility] Stop: 06/11/22 11:14 Last Admin: 05/13/22 07:52 Dose: 100 mg Torsemide (Torsemide 10 Mg Tab) 40 mg PO QAM [facility] Stop: 06/13/22 08:59
--- NOTE | 2022-05-16 11:41 | Discharge Summary ---
Date of Service May 16, 2022 Admission HPI Per Admitting Provider Indu Carbone is a 67yo female with history of DM, HTN, HLP, GERD presenting with hyperglycemia. Patient has home nursing. She reports that her blood sugars have been difficult to control for the last two weeks. She was instructed to drink a lot of fluid at home to help with her high blood sugars. She has been doing this but blood sugars continue to be high. Over the last several days she has developed progressive weakness with difficulty ambulating. She did have a ground level fall this evening in her home. No head trauma or loss of consciousness. She had a difficult time getting up so EMS was called. Her blood sugar was 592 when EMS arrived. She additionally feels that she is constipated and bloated. She is passing gas but has not had a good bowel movement in appx 2 weeks. She reports eating less and feeling full soon into the meal. Otherwise denies fever, chills, chest pain, cough, SOB, abdominal pain, vomiting or diarrhea. Patient is on high doses of insulin. Humulin Pen U-500. She checks her blood sugar 3x daily. She takes 130 units before breakfast, 20 units before lunch. She is also on Trulicity 1.5mg weekly (Fridays). She reports that her blood sugars had been improved - typically in the 150's to 200's. Over the last two weeks they have been closer to 500 throughout the day. Per Pharmacy note - she is intolerant to Metformin, had nausea/vomiting with Byetta and has frequent UTIs - avoid SGLT2 Admission Exam Per Admitting Provider Physical Exam: General: patient resting comfortably, NAD, non-toxic in appearance, AA&O x 4 Skin: warm, dry, intact, no rashes or lesions HEENT: NC/AT, PERRL, EOMI, anicteric sclera, conjunctiva without injection, external ear normal to inspection and nontender, nares patent, dry mucus membranes, dentition intact, no oropharyngeal lesions, neck supple, trachea midline, no LAD, no thyromegaly, no JVD Heart: +S1/S2, regular, no m/r/g Lungs: equal air entry bilaterally, no rales/rhonchi/wheezes Abd: +BS, soft, NT/ND, no masses/organomegaly/ascites Ext: warm, 2+ pulses in UE/LE bilaterally, no clubbing/cyanosis or edema Neuro: nonfocal, patient AA&O x 4, speech intact, no facial droop, moving all extremities on command with equal strength 5/5 Principal Diagnosis Hyperglycemia Discharge Exam GENERAL : No acute distress. Flat affect EYES: No icterus, gaze conjugate NOSE: No evidence of epistaxis MOUTH: No lesions or candidiasis NECK: Supple LUNGS: CTA B/L, no wheezes, rales or rhonchi HEART: Regular, rate controlled ABDOMEN: Soft, NT, ND, BS Present EXTREMITIES: No LE edema, pedal pulses intact NEURO: A&OX3 Discharge Data Allergies Allergy/AdvReac Type Severity Reaction Status Date / Time ciprofloxacin Allergy Intermediate MOUTH Verified 05/16/22 12:52 BLISTERS, HIVES morphine Allergy Intermediate HIVES, Verified 05/16/22 12:52 "DEATHLY ILL", THROWS UP oxycodone Allergy Intermediate HIVES, Verified 05/16/22 12:52 VOMITING penicillin V Allergy Intermediate HIVES Verified 05/16/22 12:52 Consultations 05/10/22 02:55 ED Decision to Admit Stat 05/12/22 14:48 Consult Cardiology Routine Date of Service May 15, 2022 Assessment & Plan (1) Acute hyperglycemia: (2) Chronic diastolic heart failure: (3) Acute dehydration: Plan Patient admitted for weakness, dehydration, hyperglycemia. Diuretics held on admission. cardio consult for diuretic management/advice on discharge. We attempted to resume lower dose diuretics, but patient developed dizziness and orthostasis. At this time, given low BP, will continue to hold diuretics on discharge. Anticipate needing to resume therapies within 3-5 days when she returns home as she is often non compliant with fluid restriction or low sodium diet. this can be followed by [facility]. Likely will need to resume lower dose torsemide, possible 20 mg with spironolactone 25 mg within a week or so of discharge. Echo with stable findings, preserved LVEF, grade I diastolic dysfunction. PT/OT recommended. Stable for discharge from cardiac perspective. Will arrange f/u within 1-2 weeks at [facility] Cardio/CHF clinic and will need close f/u with [facility] to monitor fluid status and glucose levels and assist with discharge meds Ordered Studies 05/11/22 12:39 MRI Brain [MR brain wo/w con] Routine MRI OF THE BRAIN COMBO CLINICAL HISTORY: Generalized weakness. Recent fall. COMPARISON STUDY: CT of the brain dated 10/10/2018. TECHNIQUE: MRI of the brain was performed utilizing various T1 and T2-weighted sequences in the axial, sagittal, and coronal planes. Contrast-enhanced sequences were acquired following the administration of 12 cc of Gadavist. FINDINGS: Brain parenchyma: There is age-related involutional change noting minimal microangiopathic disease. There is no hemorrhage or mass effect. There is no restricted diffusion to suggest acute ischemia. Increased T1 signal within the b aminta ganglia is nonspecific and may represent mineralization. No enhancing mass lesion is identified on the postcontrast images. Newton-white matter differentiation is preserved. No extra-axial fluid collection is seen. The cerebellar tonsils are normal in configuration. Ventricles, sulci, and cisterns: Prominent secondary to involutional change. Pituitary and sella: Unremarkable. Intracranial vasculature: Normal flow voids are maintained at the skull base. Orbits: The bony orbits are grossly intact. Orbital contents are normal in appearance noting bilateral ocular lens implants. Sinuses and mastoids: A 9 mm retention cyst is noted in the left maxillary antrum. The paranasal sinuses and mastoid air cells are otherwise clear. Calvarium: Unremarkable. Cervical cord: Partially visualized cervical spinal cord is normal in morphology and signal intensity. IMPRESSION: No acute intracranial abnormality. ACT 112: Negative or not required by law. Electronically signed by: Bravo Moe M.D. 05/11/2022 3:49 PM 05/12/22 10:56 US Renal Bladder [US renal/blad retro comp] Urgent RENAL ULTRASOUND CLINICAL HISTORY: low back pain, weakness, eval pyelo COMPARISON STUDY: CT of the abdomen and pelvis September 24, 2020. TECHNIQUE: Sonography of the kidneys and the urinary bladder was performed. FINDINGS: The right kidney measures 11.6 cm in maximal dimension and the left measures 13.6 cm. No hydronephrosis is present. No renal mass or calculus is identified by sonography. Bladder is collapsed and not well visualized. IMPRESSION: Unremarkable sonographic appearance of the kidneys. No hydronephrosis. ACT 112: Negative or not required by law. Electronically signed by: Umesh Clark M.D. 05/12/2022 1:35 PM Dictated:05/12/221333 Transcribed: 05/12/221333 Diabetes Follow up Consider U-500 130u QAM, 30u @ 2pm/3pm Hospital Course (1) Fall: fall w/o LOC/head trauma reported, admitted with BSGs in 400-500s - did report R knee/ankle pain following fall --> obtained xray for initial eval, but do not expect acute fracture, possible soft tissue/swelling, maybe small effusion R knee --> small effusion. pain controlled on exam - ECHO unchanged from prior - xray lumbar spine no acute fx - MRI head NEGATIVE - No arrhythmia on monitor - PT/OT consulted --> [facility] to return [facility] (lives independently in senior apartment behind facility) when able with home health - Did consult cardiology during inpatient stay as suspected over diuresis (due to having increased diuretics outpatient/switching to metolazone 3x/wk) and patient reporting not knowing low salt/fluid restriction at home * cardiology resumed patient's torsemide 100mg/spironolactone 100mg daily on 05/12, however appeared dehydrated/feeling fatigued 05/13 with associated +orthostatics * Received 2 fluid boluses 250 cc of NS on 05/13 and diuretics were placed on hold * Upon d/c would reduce Torsemide to 40mg daily and continue the Spironolactone 100mg daily, Metolazone stopped * Likely that she has a lot of dietary/fluid NONcompliance at home which is why she is seemingly overdiuresed in the hospital-cardiology to see in f/u on 05/15 - [facility] cards to have close f/u CHF clinic and are re-enrolling patient in [facility] at home -Patient asymptomatic and with no significant orthostasis on day of discharge. -Patient educated on taking her time sitting up and getting out of bed. Also educated on taking her time to stand up. (2) Acute hyperglycemia: Patient w/ DM II and A1c most recently 7.5% presented to ER w/ a fall at home as she was unable to get up. BSG >500. Labs by visiting nursing w/ renal insufficiency and dehydration. Typically on Humulin U-500, 130u breakfast, 20u lunch, Trulicity 1.5mg weekly (Fridays). BSGs 500s throughout the day over last 2 weeks. Recent PCP notes w/ malaise/polypharmacy. Weaned off sertraline, then nortriptyline. IVF and insulin gtt provided for BSGs into 300-400s, no anion gap/DKA A1c elevated to 8.9, prior 7.5 indicating worsened compliance vs dietary indiscretions -- see below. - Patient's sister does state she is compliant with insulin administration, so suspect dietary playing large role as well - Will consult DM educator for additional support, encouraged patient to keep dietary log for follow up - BSGs much improved, remains on 65u NPH AM, 15u PM. ISS --> discussed with pharmacist, her outpatient pharmacist was increasing the trulicity and decreasing the insulin with recent decreased PO intake from COVID at [facility]. Recommendations for at discharge per pharmacist's discussion for U-500 130u QAM, 30u @ 2pm/3pm --> will need changed on discharge. Follow-up with primary care physician (3) Chronic diastolic heart failure: Hx of chronic diastolic HF, follows with [facility]iology, Adrianna Quispe - ECHO February 2022 in notes w/ LV 60-64%, mild aortic valve sclerosis, grade I diastolic dysfunction - Most recent note from March 2022 w/ reported 22lb weight gain, possible medication non-compliance as 17 pills in pill pack but only taking 6 - Typically on lisinopril 2.5mg daily, nadolol daily, spironolactone 100mg daily, metolazone 5mg M// (additional as needed based on weights), torsemide 100mg daily - Had some slight increased LE edema 05/12, cards resumed diuretics as above - Suspect diuretics too much, especially given suspicion for over diuresis with the 3x/wk metolazone recently added-adjustments as above -Discontinue metolazone and decrease torsemide from 100 mg p.o. daily to 40 mg p.o. daily -Patient advised to monitor her weight and report her primary care physician with any changes. (4) Cirrhosis: Hx of, no alcohol use, suspect NAFLD/obesity suspect cause of her thrombocytopenia Hepatic cirrhosis and splenomegaly noted on CTAP September 2020, patient had EGD w/ evidence of portal gastropathy [place] [address] Watt On torsemide/spironolactone, also for CHF Keep total fluid intake no more than 1500 ml per day On nadolol, presumably for such as well Lactulose scheduled daily to help with BMs given reports chronic constipation -- +BM. Would continue Lactulose daily at discharge Will need outpt f/u GI for screening purposes. Prior EGD [address] Watt from [facility]. Also needs f/u for dilation as outlined above (5) UTI (urinary tract infection): - UA appears infected - Ceftriaxone IV while inpatient - monitor urine cx -- pending --> normal jeffy, but did appear w/ sx and improving with treatment - 4 days of IV Rocephin is sufficient for treatment of uncomplicated UTI, will stop (6) Right knee pain: xray ordered -- effusion pain control reported pain controlled currently Outpatient management (7) Constipation: reported no BM in several days, no "good BM" in 2 weeks +good BM 05/11, 05/12 - xray lumbar spine w/ stool burden - ammonia checked given weakness/hx cirrhosis, not significant elevation however given lactulose x 1 to assist with BM (8) Depression: Chronic. Stable - Continue Duloxetine - Continue Sertraline -- 50mg daily ordered per titration outpatient however due to depression sx was increased back to 100mg by previous provider (9) GARRETT on CPAP: Continue CPAP qHS -- encouraged compliance (10) HTN (hypertension): Controlled - takes Lisinopril 2.5mg, Nadolol, and diuretics (Torsemide, Spironolactone, Metolazone) prior to admit diuretics resumed by cardiology, Cr stable and BUN back to baseline however slightly dry as above, now hypotensive with +orthostatics BPs soft, diuretics on hold - will continue to monitor Decrease torsemide from 100 mg p.o. daily to 40 mg p.o. daily. Discontinue metolazone (11) HLD (hyperlipidemia): Chronic. Stable on medications -Continue Crestor -Continue zetia (12) GERD (gastroesophageal reflux disease): Chronic. Stable - Continue PPI Plan Discharge home today. Total Time Total Time Spent Total Time Spent (In Minutes): 45 including [id number] interaction with the patient, discussion with case management, and review with discharge summary and instruction preparation Discharge Plan Discharge Items Patient Disposition: Home - Home Health Services Reason For Visit: HYPERGLYCEMIA Discharge Diagnosis: Hyperglycemia Activity: Resume your previous activity Lifting: Gradually increase as tolerated Bathing: No limitations Exercise/Sports: Gradually increase as tolerated Weightbearing: Full weightbearing Non-emergency contact: Primary Care Provider Call non-emergency contact if: you have any medication questions Follow-up/Referrals: Alana Peres MD [Primary Care Provider] - 05/23/22 4:00 pm Diet: Carb Consistent or DM2 and Low Sodium (2gm) Fluids: 1500ml (6 cups) Addtl Attending Provider Instructions: You were admitted with hyperglycemia which most likely was due to acute kidney failure and dehydration. You are on a lot of diuretics and this may have contributed to your fall and to your high sugar. On discharge home, please reduce your torsemide dose from 100 mg p.o. daily to 40 mg daily. We are also going to hold your metalazone. You should continue to take your spironolactone 100 mg daily. As result of your acute kidney failure due to over diuretics, you also had some hypotension (low blood pressure) and orthostatic blood pressure (your blood pressure dropped when you sat and stood up). The change in your diuretic should help this but you should sit on the edge of the bed or chair for a few minutes before standing up and if you get dizzy or lightheaded, sit down until that resolves. When getting out of bed or chair you should do it slowly and have something to hold onto should you get dizzy. If you continue to have the symptoms, please contact your family doctor for further discussion. You should also limit your oral intake of fluids to 1500 mL (6 cups) daily. This is only about 2 quarts of liquid a day so be very careful about your total intake. Because of your medication changes, you should follow-up with your family doctor within the next week to 10 days to be monitored. Continue all of your other medications as prescribed. You have an appointment Thursday05/19/22 at 1030 with [facility] pharmacist Janet at [place].Please be sure to keep all of your appointments. Pending Studies at Discharge: No Stand-Alone Forms: My [facility] BookShout!, Smoking Cessation Medications and DC Order Prescriptions: New torsemide 10 mg Tablet 40 mg PO QAM Qty: 120 0RF Continued (DME) FreeStyle Courtney 2 [place] Misc See Rx Instructions .ROUTE .MEDSUPPLY Qty: 1 0RF Rx Instructions: As directed dx E11.9 (DME) pen needle, diabetic [BD Ultra-Fine Mini Pen Needle] 31 gauge x 3/16" needle See Rx Instructions .ROUTE .MEDSUPPLY Qty: 300 3RF Rx Instructions: Use 3 per day as directed with insulin injection (DME) FreeStyle Courtney 2 Sensor Kit See Rx Instructions .ROUTE .MEDSUPPLY Qty: 2 12RF Rx Instructions: As directed dx E11.9 albuterol sulfate [ProAir HFA] 90 mcg/actuation HFA aerosol inhaler 2 puff Inhalation Q4 PRN (Reason: Shortness Of Breath Or Wheezing) Qty: 8.5 5RF (DME) Shower Chair Misc See Rx Instructions .Route Qty: 1 0RF Rx Instructions: shower sliding transfer bench omeprazole 40 mg capsule,delayed release(DR/EC) 40 mg PO QAM Qty: 90 1RF sertraline 50 mg tablet 50 mg PO DAILY Qty: 30 5RF potassium chloride 10 mEq tablet extended release 10 meq PO 3XWK Rx Instructions: TAKES MON, WED, & THU WITH METOLAZONE. spironolactone 100 mg tablet 100 mg PO DAILY (DME) blood sugar diagnostic [OneTouch Ultra Blue Test Strip] Strip See Rx Instructions .ROUTE .MEDSUPPLY Qty: 50 Rx Instructions: Test 3 times daily (DME) lancets [OneTouch UltraSoft Lancets] Misc See Rx Instructions .ROUTE .MEDSUPPLY Qty: 100 Rx Instructions: Test 3 times daily rosuvastatin 40 mg tablet 40 mg PO HS nitroglycerin [Nitrostat] 0.4 mg Tablet, Sublingual 0.4 mg sublingual UD PRN (Reason: Chest Pain) nadolol 20 mg Tablet 10 mg PO QAM lisinopril 2.5 mg Tablet 2.5 mg PO QAM Trulicity 1.5 mg/0.5 mL pen injector 4.5 mg SUBCUT WK Label Comments: takes on fridays Rx Instructions: TAKES ON FRIDAYS ezetimibe 10 mg tablet 10 mg PO DAILY duloxetine 60 mg capsule,delayed release(DR/EC) 60 mg PO HS Discontinued torsemide 100 mg tablet 100 mg PO QAM metolazone 5 mg Tablet 5 mg PO 3XWK Rx Instructions: TAKES THU, THU, & THU. No Action cranberry 450 mg tablet 450 mg PO DAILY Humulin R U-500 (Conc) Kwikpen 500 unit/mL (3 mL) insulin pen See Rx Instructions .ROUTE .COMPLEX Rx Instructions: 130u in the morning, 20 units 3pm subcut daily; Discharge Orders: Discharge Order (Routine); Ordered 05/15/22 Ordered By: Bravo Khoury/Other Patient Handouts: High Blood Sugar (Hyperglycemia), Hypoglycemia (Low Blood Sugar), Managing Type 2 Diabetes Admission Data Admit Date/Time: 05/10/22 03:12 Attending Provider: Fabian Haji Admit Provider: Jessica Hays Primary Care Provider: Alana Peres Other Providers: Jeronimo Cornejo [facility] ; Jessica Hays ; Srinivasa Navas Other Interventions: Discharge Summary Assessment (RN) Last Done: 05/15/22 12:55 Supervising Physician Co-Signing Physician Notes I personally examined the patient and verified all deshpande points of history and exam, discussed case, and agree with decision making with Domingo Slaughter PAC feels good feels up to going home. notes one episode of decompensated CHF thinks was largely situational vitals noted nad heent nc at mmm breathing unlabored no accessory muscles good effort weakness - dehydration/low BP - hold diuretics, watch for fluid overload but may not occur. close f/u Coding Level of Care Code D/C DAY MANAGEMENT >30 MINS Diagnoses Fall W19.XXXA Acute hyperglycemia R73.9 Chronic diastolic heart failure I50.32 Cirrhosis K74.60 UTI (urinary tract infection) N39.0 Right knee pain M25.561 Constipation K59.00 Depression F32.9 GARRETT on CPAP G47.33; Z99.89 HTN (hypertension) I10 HLD (hyperlipidemia) E78.5 GERD (gastroesophageal reflux disease) K21.9 Home Health Attestation I certify that this patient is under my care and that I, or a physicians development assistant working with me, had a face to-face encounter that meets the home health [id number] encounter requirements with this patient. The encounter with the patient was in whole, or in part, for the following medical condition, which is the primary reason for home health care (list medical condition): Hyperglycemia. I certify that, based on my findings, the following services are medically necessary home health services: My clinical findings support the need for the above services because: OT Assess ADL Status and Restore Function w ADLs PT Assessment for Endurance / Balance / Strength PT Eval for Safety and Mobility PT Eval for Safety, Gait Training, Assistive Devices PT Gait and Balance Training, Strengthening and Safety Skilled Nsg Assessment Further, I certify that my clinical findings support that this patient is homebound (i.e. absences from home require considerable and taxing effort and are for medical reasons or buddhism services or infrequently or of short duration when for other reasons) because: Supportive Aid - Walker Certification for Home Health Services: Based on the above findings, I certify that this patient is confined to the home and needs intermittent fdc care, physical therapy and/or speech therapy or continues to need occupational therapy. The patient is under my care, and I have initiated the establishment of the plan of care. This patient will be followed by a physician who will periodically review the plan of care.
== END 2022-05-15 16:19 | disposition home health service (06) | DRG 638 ==
LOC: ED 23:30 → 2W 05-10 03:12 → SUATTDRO 05-10 03:12 → 2W 05-10 04:36

== ENCOUNTER 2022-07-14 18:22 | Inpatient (IN) ==
--- NOTE | 2022-07-14 18:53 | Emergency Department Note ---
Impression & Plan Acute metabolic encephalopathy, Acute alteration in mental status, Hematuria, Serum ammonia increased ED Provider Note NAME: HOSSEIN MCALLISTER AGE: 67 SEX: F : 1955 ARRIVES VIA: Ambulance INFORMANT: Patient, ED PROVIDER(S): Carter De Leon DO CHIEF COMPLAINT: Altered mental status HPI: The patient is a 67-year-old female who presented to the emergency department for an evaluation of altered mental status. The patient arrived via ambulance but no report was given from the ambulance crew. The patient was dropped off in triage but recognized to be quite ill and brought directly back to room B 11. The patient herself is very slow to answer questions. She appears very lethargic and listless. She states that she is here because her son called 911 because they think she has a urinary tract infection. She has a history of urinary tract infection in the past. She also has a history of cancer. She also has a history of diabetes. The patient states that she has no chest pain or abdominal pain. She denies having any recent falls. She denies having any changes to her medications and she states that she is been compliant with her outpatient medications. ROS: See above HPI for pertinent positives & negatives. A total of 10 systems reviewed and were otherwise negative. PAST MEDICAL HISTORY: See Below PAST SURGICAL HISTORY: See Below FAMILY HISTORY: See Below SOCIAL HISTORY: See Below HOME MEDICATIONS: See Below ALLERGIES: See Below VITALS: See Below PHYSICAL EXAMINATION: GENERAL: The patient is awake to loud verbal stimuli. She answers questions slowly. Speech is slurred. EYES: The conjunctivae are clear. The pupils are round and reactive. EARS, NOSE, MOUTH AND THROAT: The nose is without any evidence of any deformity. Mucous membranes are dry. NECK: The neck is nontender and supple. RESPIRATORY: Normal respiratory effort is noted there is no evidence of wheezing rhonchi or rales CARDIOVASCULAR: Bradycardic rate with regular rhythm was noted. There is no definite murmur. GASTROINTESTINAL: The abdomen is soft. Abdomen is nontender. MUSCULOSKELETAL/EXTREMITIES: There is no evidence of gross deformity full range of motion is noted in the hips and shoulders. SKIN: Pedal edema was noted bilaterally. NEUROLOGIC: The patient is awake to loud verbal command. She is oriented to person but not place time or situation. The patient has significant difficulty ambulating. She required 3 people to help her. MEDICAL DECISION MAKING: The patient is a 67-year-old female who presented to the emergency department for altered mental status. She came by ambulance and reportedly was having symptoms of urinary tract infection but patient was found to have significant lethargy and was obtunded at times. There is no definite cause or precipitating event. I discussed the patient's laboratory and radiographic studies with her. I also discussed her case with the on-call [facility] hospitalist. The patient was found to have a very elevated ammonia level. She was treated empirically with antibiotics for the hematuria in case this is a urinary tract infection. He was also ordered lactulose. Triage Nursing notes reviewed. Prior medical records reviewed Vital Signs: reviewed and remarkable for tachycardia. Differential diagnosis: Infection, hypoglycemia, electrolyte abnormalities, overdose, toxicologic, cardiac sources, intracerebral event, neurologic, trauma, as well as other pathologies. ER treatment provided: See below Diagnostics interpreted by me: ECG: EKG was obtained in the emergency department. My interpretation is normal sinus rhythm at 62 bpm. There was no ectopy. LVH was noted by voltage criteria. Nonspecific interventricular conduction delay was appreciated. This was compared to a tracing from June 27, 2022. No changes were noted. Cardiac Monitoring: An order was placed for continuous cardiac monitoring. The monitor shows a rate of 96 bpm with sinus rhythm. Laboratory studies: As stated above and show below. Imaging studies: See below Consultation(s): I discussed this case with Dr. Umana who is on-call for the [facility]. Past Med/Surg History Medical History Cancer UTERINE CANCER SKIN CANCER Cardiac murmur Chronic kidney disease STAGE 3-4? F/U PCP Congestive heart failure Constipation Diffuse myofascial pain syndrome Diverticular disease DM2 (diabetes mellitus, type 2) IDDM Fall Fatty liver PER PT ROME (generalized anxiety disorder) Gastroparesis GERD (gastroesophageal reflux disease) History of anesthesia reaction difficulty waking History of COVID-19 09/2020 @ [facility]--headache/diarrhea--no issues now HLD (hyperlipidemia) HTN (hypertension) Hx MRSA infection Hypokalemia IBS (irritable bowel syndrome) Migraine Morbid obesity with BMI of 45.0-49.9, adult Nausea and vomiting after administration of anesthetic agent Occasional tremors AT NIGHT GARRETT on CPAP Osteoarthritis Surgical History Cancer MELANOMA SIDE LEFT FACE-EXCISION H/O esophagogastroduodenoscopy H/O eye surgery LASER RT/LEFT FOR HIGH PRESSURE History of appendectomy History of bladder surgery BLADDER TACK History of colonoscopy History of left heart catheterization (LHC) "normal 2001" History of tooth extraction History of total knee replacement RIGHT S/P cholecystectomy S/P [facility]-BSO 1983 Family History Father Diabetes Sister Ovarian cancer Family history of diabetes mellitus Sister Family history of diabetes mellitus Mother Breast cancer Family history of reaction to anesthesia slow to wake--n/v Grandmother (Maternal) Myocardial infarction Uncle Prostate cancer Other Cancer Gallbladder disease Heart disease Hypertension Lung disease Denies family history of Colon cancer Social History Smoking Status: Never smoker Second Hand Exposure: No; Hx Alcohol Use: No Hx Substance Use: No Preferred Language: Lithuanian Communication Ability: Effective Visual Impairment: No Limitations Hearing Ability: Normal Steamfitter Supervisor Required: No Beliefs That Will Affect Care: None marital status: Current Living Situation: Other Current Living Situation Comment: roommate at independent living current occupational status: retired current occupation: worked as [employer] Feels Safe at Home: Yes Childhood Exposure to Second-Hand Smoke: Yes Dental Care, Regularly: Yes Physical Activity Frequency: 3-4 Times per Week Seatbelt Use: always Sunscreen Use: Yes Assistive Devices: Walker Allergies Allergies Allergy/AdvReac Type Severity Reaction Status Date / Time ciprofloxacin Allergy Intermediate MOUTH Verified 06/27/22 13:19 BLISTERS, HIVES morphine Allergy Intermediate HIVES, Verified 06/27/22 13:19 "DEATHLY ILL", THROWS UP oxycodone Allergy Intermediate HIVES, Verified 06/27/22 13:19 VOMITING penicillin V Allergy Intermediate HIVES Verified 06/27/22 13:19 Home Meds Home Medications Medication Instructions Recorded Confirmed nitroglycerin 0.4 mg sublingual 0.4 mg sublingual UD PRN Chest Pain 10/10/18 07/14/22 tablet (Nitrostat) rosuvastatin 40 mg tablet 40 mg PO HS 10/10/18 07/14/22 lancets (OneTouch UltraSoft #100 ea 04/05/20 05/16/22 Lancets) lisinopril 2.5 mg tablet 2.5 mg PO QAM 10/11/21 07/14/22 nadolol 20 mg tablet 10 mg PO QAM 10/11/21 07/14/22 potassium chloride 10 mEq 10 meq PO 3XWK 03/26/22 07/14/22 tablet,extended release spironolactone 100 mg tablet 100 mg PO DAILY 03/26/22 07/14/22 duloxetine 60 mg capsule,delayed 60 mg PO HS 05/10/22 07/14/22 release ezetimibe 10 mg tablet 10 mg PO DAILY 05/10/22 07/14/22 cranberry fruit 450 mg tablet 450 mg PO DAILY 05/16/22 07/14/22 (cranberry) insulin regular hum U-500 conc 500 See Rx Instructions .Route .COMPLEX 05/16/22 07/14/22 unit/mL(3 mL) subcut pen (Humulin R U-500 (Conc) Insulin Kwikpen) sertraline 50 mg tablet (Zoloft) 50 mg PO DAILY 06/27/22 07/14/22 ondansetron 4 mg disintegrating 4 mg PO Q8 PRN Nausea 07/14/22 07/14/22 tablet semaglutide 2 mg/dose (8 mg/3 mL) 2 mg subcut WK 07/14/22 07/14/22 subcutaneous pen injector (Ozempic) Previous Rx's Medication Instructions Recorded flash glucose scanning reader #1 ea 06/05/20 (FreeStyle Courtney 2 [place]) BD Ultra-Fine Mini Pen Needle 31 #300 ea 10/30/20 gauge x 3/16" (pen needle, diabetic) albuterol sulfate 90 mcg/actuation 2 puff inhalation Q4 PRN Shortness 12/20/21 aerosol inhaler (ProAir HFA) Of Breath Or Wheezing #8.5 grams Shower Chair #1 ea 03/28/22 omeprazole 40 mg capsule,delayed 40 mg PO QAM #90 caps 04/21/22 release magnesium hydroxide 400 mg/5 mL 60 ml PO DAILY PRN constipation 05/20/22 oral suspension (Milk of Magnesia) #355 mL torsemide 40 mg tablet 40 mg PO QAM #90 tabs 06/10/22 blood sugar diagnostic #100 ea 07/01/22 flash glucose sensor (FreeStyle #2 ea 07/01/22 Courtney 2 Sensor kit) Results & Data (ED) Vital Signs Vital Signs - 24 hr 07/14/22 18:33 07/14/22 18:04 07/14/22 18:47 Temperature 36.8 C Temperature Source Temporal Artery Scan Pulse Rate 57 L Pulse Rate [Finger] 62 Pulse Rate from SpO2 Sensor Pulse Rhythm [Finger] Regular Pulse Strength [Finger] Normal Respiratory Rate 20 20 Respiratory Effort / Characteristics Non-Labored Spontaneous Non-Labored Respiratory Depth Normal Normal Respiratory Pattern Regular Regular Blood Pressure 137/57 L Blood Pressure [Left Arm] 135/54 L Blood Pressure Mean 83 Blood Pressure Mean [Left Arm] 81 Blood Pressure Position [Left Arm] Lying Pulse Oximetry 98 97 98 Oxygen Delivery Method Room Air Room Air Room Air Sepsis Recent Fever Within 48 Hours No Sepsis New/Unexplained Change in Mental Status No Sepsis Action Taken by Nursing No Action Required 07/14/22 19:36 07/14/22 20:00 07/14/22 22:00 Temperature Temperature Source Pulse Rate 63 64 Pulse Rate [Finger] 96 H Pulse Rate from SpO2 Sensor 63 65 Pulse Rhythm [Finger] Regular Pulse Strength [Finger] Normal Respiratory Rate 15 15 20 Respiratory Effort / Characteristics Non-Labored Respiratory Depth Normal Respiratory Pattern Blood Pressure 135/54 L Blood Pressure [Left Arm] 120/49 L Blood Pressure Mean 81 Blood Pressure Mean [Left Arm] 72 Blood Pressure Position [Left Arm] Lying Pulse Oximetry 98 96 96 Oxygen Delivery Method Room Air Sepsis Recent Fever Within 48 Hours Sepsis New/Unexplained Change in Mental Status Sepsis Action Taken by Snf Medications Current Medication List: was personally reviewed by me Laboratory Data Attestation: I reviewed the patient's lab results. Result diagrams: 07/14/22 20:45 07/14/22 20:45 Lab Results 07/14/22 07/14/22 07/14/22 Range/Units 19:20 20:45 20:45 WBC 8.29 (4.8-10.8) K/ul RBC 4.45 (3.93-5.22) M/uL Hgb 13.8 (12.0-16.0) g/dl Hct 39.7 (34.1-44.9) % MCV 89.2 (80.0-100.0) fL MCH 31.0 (25.0-34.0) pg MCHC 34.8 (32.0-36.0) g/dL RDW Std Deviation 47.0 H (36.4-46.3) fL RDW Coeff of Vanesa 14.6 H (11.5-14.5) % Plt Count 184 (130-400) K/uL MPV 10.5 (9.4-12.3) fL Immature Gran % (Auto) 0.1 % Neut % (Auto) 56.2 % Lymph % (Auto) 27.6 % Patrick % (Auto) 13.6 % Eos % (Auto) 1.8 % Baso % (Auto) 0.7 % Neut # (Auto) 4.65 (1.4-6.5) K/uL Lymph # (Auto) 2.29 (1.2-3.4) K/uL Patrick # (Auto) 1.13 H (0.24-0.82) K/uL Eos # (Auto) 0.15 (0-0.50) K/uL Baso # (Auto) 0.06 (0-0.2) K/uL Immature Gran # (Auto) 0.01 (0.00-0.02) K/uL PT (9.0-12.0) Seconds INR (0.9-1.1) APTT (21.0-31.0) Seconds PTT Ratio VBG pH (7.36-7.41) VBG pCO2 (38-50) mmHg VBG pO2 mmHg VBG HCO3 mmol/L VBG O2 Saturation % VBG Base Excess mEq/L Sodium (136-145) mmol/L Potassium (3.5-5.1) mmol/L Chloride (98-107) mmol/L Carbon Dioxide (21-32) mmol/L Anion Gap (3-11) BUN (6-23) mg/dl Creatinine (0.6-1.2) mg/dl Est Cr Clr Drug Dosing ml/min Est GFR ( Amer) ml/min Est GFR (Non-Af Amer) ml/min BUN/Creatinine Ratio (10-20) Glucose (70-99(Fasting)) mg/dl POC Glucose 74 (70-99) mg/dl Lactate (0.4-2.0) mmol/L Calcium (8.5-10.1) mg/dl Magnesium (1.7-2.4) mg/dl Total Bilirubin (0.2-1.0) mg/dl Direct Bilirubin (0-0.2) mg/dl AST (13-39) U/L ALT (7-52) U/L Alkaline Phosphatase (34-104) U/L Ammonia 266.0 H (18-72) umol/L Troponin I High Sens (0-14) pg/ml Total Protein (6.0-8.3) gm/dl Albumin (3.4-5.0) gm/dl Procalcitonin (0-0.5) ng/ml Urine Color Urine Appearance (Clear) Urine pH (4.5-7.5) Ur Specific [place] (1.000-1.030) Urine Protein (Negative) Urine Glucose (UA) (Negative) Urine Ketones (Negative) Urine Blood (Negative) Urine Nitrite (Negative) Urine Bilirubin (Negative) Urine Urobilinogen (Negative) Ur Leukocyte Esterase (Negative) Urine WBC (Auto) (0-5) /hpf Urine RBC (Auto) (0-4) /hpf U Hyaline Cast (Auto) (0-5) /lpf U Epithel Cells (Auto) (0-5) /lpf Urine Bacteria (Auto) (Negative) Urine Opiates Screen (Neg) Ur Methadone, Qual (Neg) Urine Barbiturates (Neg) Ur Phencyclidine (PCP) (Neg) U Amphetamin/Meth Scrn (Neg) MDMA (Ecstasy) Screen (Neg) U Benzodiazepines Scrn (Neg) Ur Cocaine Metabolite (Neg) U Marijuana (THC) Screen (Neg) Ethyl Alcohol mg/dL (<10.0) mg/dl SARS-CoV-2, RNA, NAAT (NEGATIVE) 07/14/22 07/14/22 07/14/22 Range/Units 20:45 20:45 20:45 WBC (4.8-10.8) K/ul RBC (3.93-5.22) M/uL Hgb (12.0-16.0) g/dl Hct (34.1-44.9) % MCV (80.0-100.0) fL MCH (25.0-34.0) pg MCHC (32.0-36.0) g/dL RDW Std Deviation (36.4-46.3) fL RDW Coeff of Vanesa (11.5-14.5) % Plt Count (130-400) K/uL MPV (9.4-12.3) fL Immature Gran % (Auto) % Neut % (Auto) % Lymph % (Auto) % Patrick % (Auto) % Eos % (Auto) % Baso % (Auto) % Neut # (Auto) (1.4-6.5) K/uL Lymph # (Auto) (1.2-3.4) K/uL Patrick # (Auto) (0.24-0.82) K/uL Eos # (Auto) (0-0.50) K/uL Baso # (Auto) (0-0.2) K/uL Immature Gran # (Auto) (0.00-0.02) K/uL PT 12.1 H (9.0-12.0) Seconds INR 1.1 (0.9-1.1) APTT 24.2 (21.0-31.0) Seconds PTT Ratio 0.9 VBG pH (7.36-7.41) VBG pCO2 (38-50) mmHg VBG pO2 mmHg VBG HCO3 mmol/L VBG O2 Saturation % VBG Base Excess mEq/L Sodium 140 (136-145) mmol/L Potassium 3.3 L (3.5-5.1) mmol/L Chloride 101 (98-107) mmol/L Carbon Dioxide 30 (21-32) mmol/L Anion Gap 9 (3-11) BUN 30 H (6-23) mg/dl Creatinine 0.87 (0.6-1.2) mg/dl Est Cr Clr Drug Dosing 83.0 ml/min Est GFR ( Amer) 79.9 ml/min Est GFR (Non-Af Amer) 68.9 ml/min BUN/Creatinine Ratio 34.5 H (10-20) Glucose 71 (70-99(Fasting)) mg/dl POC Glucose (70-99) mg/dl Lactate 1.7 (0.4-2.0) mmol/L Calcium 8.9 (8.5-10.1) mg/dl Magnesium 1.9 (1.7-2.4) mg/dl Total Bilirubin 1.6 H (0.2-1.0) mg/dl Direct Bilirubin 0.3 H (0-0.2) mg/dl AST 94 H (13-39) U/L ALT 39 (7-52) U/L Alkaline Phosphatase 94 (34-104) U/L Ammonia (18-72) umol/L Troponin I High Sens 17.3 H (0-14) pg/ml Total Protein 7.6 (6.0-8.3) gm/dl Albumin 3.3 L (3.4-5.0) gm/dl Procalcitonin (0-0.5) ng/ml Urine Color Urine Appearance (Clear) Urine pH (4.5-7.5) Ur Specific [place] (1.000-1.030) Urine Protein (Negative) Urine Glucose (UA) (Negative) Urine Ketones (Negative) Urine Blood (Negative) Urine Nitrite (Negative) Urine Bilirubin (Negative) Urine Urobilinogen (Negative) Ur Leukocyte Esterase (Negative) Urine WBC (Auto) (0-5) /hpf Urine RBC (Auto) (0-4) /hpf U Hyaline Cast (Auto) (0-5) /lpf U Epithel Cells (Auto) (0-5) /lpf Urine Bacteria (Auto) (Negative) Urine Opiates Screen (Neg) Ur Methadone, Qual (Neg) Urine Barbiturates (Neg) Ur Phencyclidine (PCP) (Neg) U Amphetamin/Meth Scrn (Neg) MDMA (Ecstasy) Screen (Neg) U Benzodiazepines Scrn (Neg) Ur Cocaine Metabolite (Neg) U Marijuana (THC) Screen (Neg) Ethyl Alcohol mg/dL (<10.0) mg/dl SARS-CoV-2, RNA, NAAT (NEGATIVE) 07/14/22 07/14/22 07/14/22 Range/Units 20:45 20:45 21:26 WBC (4.8-10.8) K/ul RBC (3.93-5.22) M/uL Hgb (12.0-16.0) g/dl Hct (34.1-44.9) % MCV (80.0-100.0) fL MCH (25.0-34.0) pg MCHC (32.0-36.0) g/dL RDW Std Deviation (36.4-46.3) fL RDW Coeff of Vanesa (11.5-14.5) % Plt Count (130-400) K/uL MPV (9.4-12.3) fL Immature Gran % (Auto) % Neut % (Auto) % Lymph % (Auto) % Patrick % (Auto) % Eos % (Auto) % Baso % (Auto) % Neut # (Auto) (1.4-6.5) K/uL Lymph # (Auto) (1.2-3.4) K/uL Patrick # (Auto) (0.24-0.82) K/uL Eos # (Auto) (0-0.50) K/uL Baso # (Auto) (0-0.2) K/uL Immature Gran # (Auto) (0.00-0.02) K/uL PT (9.0-12.0) Seconds INR (0.9-1.1) APTT (21.0-31.0) Seconds PTT Ratio VBG pH 7.48 H (7.36-7.41) VBG pCO2 48 (38-50) mmHg VBG pO2 41 mmHg VBG HCO3 36 mmol/L VBG O2 Saturation 66.9 % VBG Base Excess 10.6 mEq/L Sodium (136-145) mmol/L Potassium (3.5-5.1) mmol/L Chloride (98-107) mmol/L Carbon Dioxide (21-32) mmol/L Anion Gap (3-11) BUN (6-23) mg/dl Creatinine (0.6-1.2) mg/dl Est Cr Clr Drug Dosing ml/min Est GFR ( Amer) ml/min Est GFR (Non-Af Amer) ml/min BUN/Creatinine Ratio (10-20) Glucose (70-99(Fasting)) mg/dl POC Glucose (70-99) mg/dl Lactate (0.4-2.0) mmol/L Calcium (8.5-10.1) mg/dl Magnesium (1.7-2.4) mg/dl Total Bilirubin (0.2-1.0) mg/dl Direct Bilirubin (0-0.2) mg/dl AST (13-39) U/L ALT (7-52) U/L Alkaline Phosphatase (34-104) U/L Ammonia (18-72) umol/L Troponin I High Sens (0-14) pg/ml Total Protein (6.0-8.3) gm/dl Albumin (3.4-5.0) gm/dl Procalcitonin 0.14 (0-0.5) ng/ml Urine Color Urine Appearance (Clear) Urine pH (4.5-7.5) Ur Specific [place] (1.000-1.030) Urine Protein (Negative) Urine Glucose (UA) (Negative) Urine Ketones (Negative) Urine Blood (Negative) Urine Nitrite (Negative) Urine Bilirubin (Negative) Urine Urobilinogen (Negative) Ur Leukocyte Esterase (Negative) Urine WBC (Auto) (0-5) /hpf Urine RBC (Auto) (0-4) /hpf U Hyaline Cast (Auto) (0-5) /lpf U Epithel Cells (Auto) (0-5) /lpf Urine Bacteria (Auto) (Negative) Urine Opiates Screen (Neg) Ur Methadone, Qual (Neg) Urine Barbiturates (Neg) Ur Phencyclidine (PCP) (Neg) U Amphetamin/Meth Scrn (Neg) MDMA (Ecstasy) Screen (Neg) U Benzodiazepines Scrn (Neg) Ur Cocaine Metabolite (Neg) U Marijuana (THC) Screen (Neg) Ethyl Alcohol mg/dL < 10.0 (<10.0) mg/dl SARS-CoV-2, RNA, NAAT (NEGATIVE) 07/14/22 07/14/22 07/14/22 Range/Units 22:21 Unknown Unknown WBC (4.8-10.8) K/ul RBC (3.93-5.22) M/uL Hgb (12.0-16.0) g/dl Hct (34.1-44.9) % MCV (80.0-100.0) fL MCH (25.0-34.0) pg MCHC (32.0-36.0) g/dL RDW Std Deviation (36.4-46.3) fL RDW Coeff of Vanesa (11.5-14.5) % Plt Count (130-400) K/uL MPV (9.4-12.3) fL Immature Gran % (Auto) % Neut % (Auto) % Lymph % (Auto) % Patrick % (Auto) % Eos % (Auto) % Baso % (Auto) % Neut # (Auto) (1.4-6.5) K/uL Lymph # (Auto) (1.2-3.4) K/uL Patrick # (Auto) (0.24-0.82) K/uL Eos # (Auto) (0-0.50) K/uL Baso # (Auto) (0-0.2) K/uL Immature Gran # (Auto) (0.00-0.02) K/uL PT (9.0-12.0) Seconds INR (0.9-1.1) APTT (21.0-31.0) Seconds PTT Ratio VBG pH (7.36-7.41) VBG pCO2 (38-50) mmHg VBG pO2 mmHg VBG HCO3 mmol/L VBG O2 Saturation % VBG Base Excess mEq/L Sodium (136-145) mmol/L Potassium (3.5-5.1) mmol/L Chloride (98-107) mmol/L Carbon Dioxide (21-32) mmol/L Anion Gap (3-11) BUN (6-23) mg/dl Creatinine (0.6-1.2) mg/dl Est Cr Clr Drug Dosing ml/min Est GFR ( Amer) ml/min Est GFR (Non-Af Amer) ml/min BUN/Creatinine Ratio (10-20) Glucose (70-99(Fasting)) mg/dl POC Glucose (70-99) mg/dl Lactate (0.4-2.0) mmol/L Calcium (8.5-10.1) mg/dl Magnesium (1.7-2.4) mg/dl Total Bilirubin (0.2-1.0) mg/dl Direct Bilirubin (0-0.2) mg/dl AST (13-39) U/L ALT (7-52) U/L Alkaline Phosphatase (34-104) U/L Ammonia (18-72) umol/L Troponin I High Sens (0-14) pg/ml Total Protein (6.0-8.3) gm/dl Albumin (3.4-5.0) gm/dl Procalcitonin (0-0.5) ng/ml Urine Color Yellow Urine Appearance Clear (Clear) Urine pH 7.5 (4.5-7.5) Ur Specific [place] 1.010 (1.000-1.030) Urine Protein Negative (Negative) Urine Glucose (UA) Negative (Negative) Urine Ketones Negative (Negative) Urine Blood 3+ H (Negative) Urine Nitrite Negative (Negative) Urine Bilirubin Negative (Negative) Urine Urobilinogen Positive H (Negative) Ur Leukocyte Esterase Negative (Negative) Urine WBC (Auto) 1-5 (0-5) /hpf Urine RBC (Auto) >30 H (0-4) /hpf U Hyaline Cast (Auto) 1-5 (0-5) /lpf U Epithel Cells (Auto) >30 H (0-5) /lpf Urine Bacteria (Auto) Negative (Negative) Urine Opiates Screen Neg (Neg) Ur Methadone, Qual Neg (Neg) Urine Barbiturates Neg (Neg) Ur Phencyclidine (PCP) Neg (Neg) U Amphetamin/Meth Scrn Neg (Neg) MDMA (Ecstasy) Screen Neg (Neg) U Benzodiazepines Scrn Neg (Neg) Ur Cocaine Metabolite Neg (Neg) U Marijuana (THC) Screen Neg (Neg) Ethyl Alcohol mg/dL (<10.0) mg/dl SARS-CoV-2, RNA, NAAT NEGATIVE (NEGATIVE) Administered Medications Discontinued Medications Ceftriaxone Sodium (Rocephin) 2,000 mg in 70 mls @ 140 mls/hr IV NOW STA Stop: 07/14/22 22:49 Last Admin: 07/14/22 22:36 Dose: 140 mls/hr Documented By: ROBBIE Sodium Chloride (Nss) 500 mls @ 999 mls/hr IV .Q31M ONE Stop: 07/14/22 22:53 Last Admin: 07/14/22 22:36 Dose: 999 mls/hr Documented By: ROBBIE Lactulose (Lactulose Syrup 30 Gm/45 Ml Udp) 30 gm PO NOW STA Stop: 07/14/22 22:21 Last Admin: 07/14/22 23:08 Dose: 30 gm Documented By: JOSELUIS Imaging Data Radiologist's Impression: Head CT 07/14/22 18:46 CT SCAN OF THE BRAIN WITHOUT IV CONTRAST CLINICAL HISTORY: Change in mental status. COMPARISON STUDY: CT of the brain dated 10/10/2018. TECHNIQUE: Unenhanced axial CT scan of the brain is performed from the vertex to the skull base. A dose lowering technique was utilized adhering to the principles of ALARA. The patient was scanned twice due to motion artifact. CT DOSE: 3912.49 mGy.cm FINDINGS: Brain parenchyma: There is minimal microangiopathic Guera. There is no hemorrhage, mass effect, or evidence of acute territorial ischemia by CT criteria. Newton-white matter differentiation is preserved. No extra-axial fluid collection is seen. Ventricles, sulci, cisterns: Normal configuration. Intracranial vasculature: There is atherosclerotic calcification of the cavernous carotid arteries. Calvarium: Unremarkable. Sinuses and mastoids: There is mild mucosal thickening in the left maxillary antrum. The remaining paranasal sinuses are clear. The mastoid air cells are well pneumatized. Orbits: The bony orbits are grossly intact. There are bilateral ocular lens implants. IMPRESSION: There is no hemorrhage, mass effect, or evidence of acute territoria l ischemia by CT criteria. ACT 112: Negative or not required by law. Electronically signed by: Bravo Moe M.D. 07/14/2022 9:23 PM Chest X-Ray 07/14/22 18:47 SINGLE VIEW CHEST CLINICAL HISTORY: Sepsis. FINDINGS: An AP, portable, upright chest radiograph is compared to study dated 06/27/2022 and correlated with chest CT dated 07/20/2016. The heart is enlarged. There is prominence of the pulmonary vasculature. There are low lung volumes with bibasilar atelectasis. No airspace consolidation or large pleural effusion is identified. No pneumothorax is seen. The skeletal structures are osteopenic. The bony thorax is grossly intact. Cholecystectomy clips are noted in the right upper quadrant. IMPRESSION: Cardiomegaly with prominence of the pulmonary vasculature. Correlate clinically for evidence of fluid overload/mild congestive change. ACT 112: Negative or not required by law. Electronically signed by: Bravo Moe M.D. 07/14/2022 7:20 PM Abdomen/Pelvis CT 07/14/22 20:38 CT SCAN OF THE ABDOMEN AND PELVIS WITHOUT IV CONTRAST CLINICAL HISTORY: Hematuria. COMPARISON STUDY: Abdominal CT dated 09/24/2020. TECHNIQUE: CT scan of the abdomen and pelvis is performed from the lung bases to the proximal femora. Images are reviewed in the axial, sagittal, and coronal planes. IV contrast was not administered for this examination. A dose lowering technique was utilized adhering to the principles of ALARA. The examination is degraded by motion artifact, large body habitus with streak artifact from the body wall the CT gantry, as well as by streak artifact from the arms which could not be elevated above the abdomen or pelvis. FINDINGS: Lung bases: The heart is normal in size and without pericardial effusion. The lung bases are clear noting dependent atelectasis. A small hiatal hernia is noted. Liver: The unenhanced liver is cirrhotic in morphology and heterogeneous attenuation. There is nodularity of the hepatic surface contour. There is no intrahepatic biliary ductal dilatation. Gallbladder: Surgically absent noting clips in the gallbladder fossa. Spleen: Normal in size and attenuation. Pancreas: The unenhanced pancreas is moderately atrophic and grossly unremarkable. Adrenal glands: Unremarkable. Kidneys: The unenhanced kidneys demonstrate cortical atrophy. There is fullness of the renal collecting systems without hydronephrosis. There are no renal calculi identified. There is no evidence of contour deforming renal mass lesion. Abdominal vasculature: The abdominal aorta is normal in course and caliber noting mild to moderate atherosclerotic calcification. Bowel: Mild fecal retention is seen throughout the colon. No bowel obstruction is identified. The appendix is not identified. Peritoneum: There is no intraperitoneal free air or abdominal ascites. Lymphadenopathy: None. Pelvic viscera: The bladder is distended but otherwise normal in appearance. The uterus is surgically absent. No adnexal lesion is seen. Skeletal structures: The skeletal structures are osteopenic. There is mild lumbosacral spondylosis. No lytic or blastic lesions are seen. Soft tissues: There is induration of the pelvic pannus. IMPRESSION: 1. No acute infectious or inflammatory findings are identified in the abdomen or pelvis. 2. Significant bladder distention. 3. There is fullness of the renal collecting system bilaterally, likely related to the degree of bladder distention. There are no renal calculi identified and no hydronephrosis is seen. 4. Cirrhotic liver morphology. 5. There is induration of the pelvic pannus. Correlate clinically for evidence of cellulitis. 6. Additional findings as above. ACT 112: Negative or not required by law. Electronically signed by: Bravo Moe M.D. 07/14/2022 9:30 PM Discharge Plan Visit Data Chief Complaint: Urinary Symptoms ED Provider: Carter De Leon Discharge Problem: Acute metabolic encephalopathy, Acute alteration in mental status, Hematuria, Serum ammonia increased Patient Disposition: Being Evaluated by Hospitalist Forms Stand Alone Forms: My [facility] Prescriptions Prescriptions: No Action (DME) [employer] 2 [place] Misc See Rx Instructions .ROUTE .MEDSUPPLY Qty: 1 0RF Rx Instructions: As directed dx E11.9 (DME) pen needle, diabetic [BD Ultra-Fine Mini Pen Needle] 31 gauge x 3/16" needle See Rx Instructions .ROUTE .MEDSUPPLY Qty: 300 3RF Rx Instructions: Use 3 per day as directed with insulin injection albuterol sulfate [ProAir HFA] 90 mcg/actuation HFA aerosol inhaler 2 puff Inhalation Q4 PRN (Reason: Shortness Of Breath Or Wheezing) Qty: 8.5 5RF (DME) Shower Chair [facility] See Rx Instructions .Route Qty: 1 0RF Rx Instructions: shower sliding transfer bench omeprazole 40 mg capsule,delayed release(DR/EC) 40 mg PO QAM Qty: 90 1RF cranberry 450 mg tablet 450 mg PO DAILY Humulin R U-500 (Conc) Kwikpen 500 unit/mL (3 mL) insulin pen See Rx Instructions .ROUTE .COMPLEX Rx Instructions: 130u in the morning, 20 units 3pm subcut daily; magnesium hydroxide [Milk of Magnesia] 400 mg/5 mL suspension 60 ml PO DAILY PRN (Reason: constipation) Qty: 355 0RF (DME) FreeStyle Courtney 2 Sensor Kit See Rx Instructions .ROUTE .MEDSUPPLY Qty: 2 12RF Rx Instructions: As directed dx E11.9 (DME) blood sugar diagnostic Strip See Rx Instructions .ROUTE .MEDSUPPLY Qty: 100 0RF Rx Instructions: Test 3 times daily; DX CODE- E11.9 potassium chloride 10 mEq tablet extended release 10 meq PO 3XWK Rx Instructions: TAKES MON, WED, & FRI WITH METOLAZONE. spironolactone 100 mg tablet 100 mg PO DAILY torsemide 40 mg tablet 40 mg PO QAM Qty: 90 3RF (DME) lancets [OneTouch UltraSoft Lancets] [facility] See Rx Instructions .ROUTE .MEDSUPPLY Qty: 100 Rx Instructions: Test 3 times daily rosuvastatin 40 mg tablet 40 mg PO HS nitroglycerin [Nitrostat] 0.4 mg Tablet, Sublingual 0.4 mg sublingual UD PRN (Reason: Chest Pain) nadolol 20 mg Tablet 10 mg PO QAM lisinopril 2.5 mg Tablet 2.5 mg PO QAM sertraline [Zoloft] 50 mg tablet 50 mg PO DAILY ezetimibe 10 mg tablet 10 mg PO DAILY duloxetine 60 mg capsule,delayed release(DR/EC) 60 mg PO HS ondansetron 4 mg tablet,disintegrating 4 mg PO Q8 PRN (Reason: Nausea) Ozempic 2 mg/dose (8 mg/3 mL) pen injector 2 mg SUBCUT WK Rx Instructions: fridays Referrals Referrals: Alana Peres MD [Primary Care Provider] -
--- NOTE | 2022-07-14 19:23 | XRay Report ---
SINGLE VIEW CHEST CLINICAL HISTORY: Sepsis. FINDINGS: An AP, portable, upright chest radiograph is compared to study dated 06/27/2022 and correlat ed with chest CT dated 07/20/2016. The heart is enlarged. There is prominence of the pulmonary vasculat ure. There are low lung volumes with bibasilar atelectasis. No airspace consolidation or large pleura l effusion is identified. No pneumothorax is seen. The skeletal structures are osteopenic. The bony t horax is grossly intact. Cholecystectomy clips are noted in the right upper quadrant. IMPRESSION: Cardiomegaly with prominence of the pulmonary vasculature. Correlate clinically for evide nce of fluid overload/mild congestive change. ACT 112: Negative or not required by law. Electronically signed by: Bravo Moe M.D. 07/14/2022 7:20 PM
[2022-07-14 19:54] LABS: Appearance Urine Clear (Clear); Bacteria Urine Automated Negative (Negative); Bilirubin Urine Negative (Negative); Blood Urine 3+ (Negative); Color Urine Yellow; Epithelial Cell Urine Auto >30 /lpf (0-5); Glucose Urine UA Negative (Negative); Ketones Urine Negative (Negative); Leukocyte Esterase Urine Negative (Negative); Nitrite Urine Negative (Negative); Protein Urine Negative (Negative); RBC Urine Automated >30 /hpf (0-4); Urobilinogen Urine Positive (Negative); pH Urine 7.5 (4.5-7.5)
[2022-07-14 20:49] LABS: Amphetamines+Metham, Urine Neg (Neg); Barbiturates, Urine Neg (Neg); Benzodiazepine, Urine Neg (Neg); Cocaine, Urine Neg (Neg); MDMA (Ecstacy), Urine Neg (Neg); Methadone, Urine Neg (Neg); Opiate, Urine Neg (Neg); Phencyclidine, Urine Neg (Neg)
[2022-07-14 20:58] LABS: Basophils # (auto) 0.06 K/uL (0-0.2); Basophils % (auto) 0.7 %; Eosinophils # (auto) 0.15 K/uL (0-0.50); Eosinophils % (auto) 1.8 %; Hematocrit (blood only) 39.7 % (34.1-44.9); Hemoglobin 13.8 g/dl (12.0-16.0); Immature Granulocytes # (auto) 0.01 K/uL (0.00-0.02); Immature Granulocytes % (auto) 0.1 %; Lymphocytes # (auto) 2.29 K/uL (1.2-3.4); Lymphocytes % (auto) 27.6 %; Mean Corpuscular Hgb Conc 34.8 g/dL (32.0-36.0); Mean Corpuscular Volume 89.2 fL (80.0-100.0); Mean Platelet Volume 10.5 fL (9.4-12.3); Monocytes # (auto) 1.13 K/uL (0.24-0.82); Monocytes % (auto) 13.6 %; Neutrophils # (auto) 4.65 K/uL (1.4-6.5); Neutrophils % (auto) 56.2 %; Platelet Count 184 K/uL (130-400); RDW Coefficient of Variation 14.6 % (11.5-14.5); Red Blood Count 4.45 M/uL (3.93-5.22); White Blood Count 8.29 K/ul (4.8-10.8)
[2022-07-14 20:59] LABS: Base Excess VBG 10.6 mEq/L; HCO3 VBG 36 mmol/L; Oxygen Saturation VBG 66.9 %; PCO2 VBG 48 mmHg (38-50); PO2 VBG 41 mmHg; pH VBG 7.48 (7.36-7.41)
[2022-07-14 21:12] LABS: INR 1.1 (0.9-1.1); Partial Thromboplastin Ratio 0.9; Partial Thromboplastin Time 24.2 Seconds (21.0-31.0); Prothrombin Time 12.1 Seconds (9.0-12.0)
--- NOTE | 2022-07-14 21:25 | CT Scan Report ---
CT SCAN OF THE BRAIN WITHOUT IV CONTRAST CLINICAL HISTORY: Change in mental status. COMPARISON STUDY: CT of the brain dated 10/10/2018. TECHNIQUE: Unenhanced axial CT scan of the brain is performed from the vertex to the skull base. A do se lowering technique was utilized adhering to the principles of ALARA. The patient was scanned twice due to motion artifact. CT DOSE: 3912.49 mGy.cm FINDINGS: Brain parenchyma: There is minimal microangiopathic Guera. There is no hemorrhage, mass effect, or uziel dence of acute territorial ischemia by CT criteria. Newton-white matter differentiation is preserved. N o extra-axial fluid collection is seen. Ventricles, sulci, cisterns: Normal configuration. Intracranial vasculature: There is atherosclerotic calcification of the cavernous carotid arteries. Calvarium: Unremarkable. Sinuses and mastoids: There is mild mucosal thickening in the left maxillary antrum. The remaining pa ranasal sinuses are clear. The mastoid air cells are well pneumatized. Orbits: The bony orbits are grossly intact. There are bilateral ocular lens implants. IMPRESSION: There is no hemorrhage, mass effect, or evidence of acute territorial ischemia by CT jose rouse. ACT 112: Negative or not required by law. Electronically signed by: Bravo Moe M.D. 07/14/2022 9:23 PM
--- NOTE | 2022-07-14 21:32 | CT Scan Report ---
CT SCAN OF THE ABDOMEN AND PELVIS WITHOUT IV CONTRAST CLINICAL HISTORY: Hematuria. COMPARISON STUDY: Abdominal CT dated 09/24/2020. TECHNIQUE: CT scan of the abdomen and pelvis is performed from the lung bases to the proximal femora. Images are reviewed in the axial, sagittal, and coronal planes. IV contrast was not administered for this examination. A dose lowering technique was utilized adhering to the principles of ALARA. The ex amination is degraded by motion artifact, large body habitus with streak artifact from the body wall the CT gantry, as well as by streak artifact from the arms which could not be elevated above the abdo men or pelvis. FINDINGS: Lung bases: The heart is normal in size and without pericardial effusion. The lung bases are clear no ting dependent atelectasis. A small hiatal hernia is noted. Liver: The unenhanced liver is cirrhotic in morphology and heterogeneous attenuation. There is nodula rity of the hepatic surface contour. There is no intrahepatic biliary ductal dilatation. Gallbladder: Surgically absent noting clips in the gallbladder fossa. Spleen: Normal in size and attenuation. Pancreas: The unenhanced pancreas is moderately atrophic and grossly unremarkable. Adrenal glands: Unremarkable. Kidneys: The unenhanced kidneys demonstrate cortical atrophy. There is fullness of the renal collecti ng systems without hydronephrosis. There are no renal calculi identified. There is no evidence of con tour deforming renal mass lesion. Abdominal vasculature: The abdominal aorta is normal in course and caliber noting mild to moderate at herosclerotic calcification. Bowel: Mild fecal retention is seen throughout the colon. No bowel obstruction is identified. The patrick endix is not identified. Peritoneum: There is no intraperitoneal free air or abdominal ascites. Lymphadenopathy: None. Pelvic viscera: The bladder is distended but otherwise normal in appearance. The uterus is surgically absent. No adnexal lesion is seen. Skeletal structures: The skeletal structures are osteopenic. There is mild lumbosacral spondylosis. N o lytic or blastic lesions are seen. Soft tissues: There is induration of the pelvic pannus. IMPRESSION: 1. No acute infectious or inflammatory findings are identified in the abdomen or pelvis. 2. Significant bladder distention. 3. There is fullness of the renal collecting system bilaterally, likely related to the degree of blad shwetha distention. There are no renal calculi identified and no hydronephrosis is seen. 4. Cirrhotic liver morphology. 5. There is induration of the pelvic pannus. Correlate clinically for evidence of cellulitis. 6. Additional findings as above. ACT 112: Negative or not required by law. Electronically signed by: Bravo Moe M.D. 07/14/2022 9:30 PM
[2022-07-14 21:34] LABS: Troponin I High Sensitivity 17.3 pg/ml (0-14)
[2022-07-14 22:12] LABS: Albumin Level 3.3 gm/dl (3.4-5.0); BUN Creatinine Ratio 34.5 (10-20); Bilirubin Direct 0.3 mg/dl (0-0.2); Bilirubin,Total 1.6 mg/dl (0.2-1.0); Calcium 8.9 mg/dl (8.5-10.1); Est GFR (African American) 79.9 ml/min; Est GFR (Non-African American) 68.9 ml/min; Magnesium 1.9 mg/dl (1.7-2.4); Potassium 3.3 mmol/L (3.5-5.1); Total Protein 7.6 gm/dl (6.0-8.3)
[2022-07-14] MEDS ORDERED: cefTRIAXone SODIUM 2,000 MG/70 ML BAG IV STA (22:20)
[2022-07-14] MEDS ORDERED: LACTULOSE SYRUP 30 GM/45 ML UDP PO STA (22:20)
[2022-07-14] MEDS ORDERED: SODIUM CHLORIDE 0.9% 500 ML IV ONE (22:23)
--- NOTE | 2022-07-14 23:25 | History & Physical Report ---
Date of Service July 14, 2022 Assessment & Plan (1) Hepatic encephalopathy: Plan: NH3 was 266 on presentation. First episode of Hepatic encephalopathy per my review. Prior NH3s were 50-60. Other than constipation, not clear what precipitating cause was. No ascites on CT a/p on 07/14, so SBP essentiallyed ruled out. Last EGD in GI notes was ~06/2019 and showed gastritis but no varices. - Continue lactulose TID PO (BUNDLE HELPER will alert me if she cannot take it, but surprisingly, I think her mental status is good enough to safely swallow). Will insert NG tube if needed. - GI consulted (2) Hematuria: Plan: Noted on UA, though patient required straight cath for sample, so I think likely trauma. - No sx of UTI, so defer abx (3) Chronic diastolic heart failure: Plan: Was volume overloaded in 04/2022, but per discharge summary, responded too strongly to her supposed "home" diuretic regimen, so it was thought that non-compliance played a role. - Presently appears euvolemic to mildly hypovolemic on exam and labs. - HOLD torsemide and spironolactone x 1-2 days, but likely restart as soon as patient more awake and taking in normal PO. - Continue lisinopril, nadolol, statin, and ezetimibe (4) Abnormal finding on CT scan: Plan: Two things of note: 1) "induration of the pelvic pannus" -> Did close skin check of all abdomen and pannus. Do not see correlation on skin exam. Monitor. 2) "Significant bladder distention." -> Will order Qshift PVRs. (5) Uncontrolled type 2 diabetes mellitus with neurologic complication, with long-term current use of insulin: Plan: Last A1c was 8.9% in 04/2022. - Hold home regular insulin - Plan to switch to basal-bolus while inpatient - Given huge insulin needs and fact that she is normally on regular insulin, glycemic pharmacy consulted (6) Depression: Plan: With chronic pain issues. - Continue home duloxetine & sertraline (7) HTN (hypertension): Plan: BP is 120/50 in the ER. - Continue home beta-howard and ACEi - Monitor (8) HLD (hyperlipidemia): Plan: - Continue statin and ezetimibe as above (9) GERD (gastroesophageal reflux disease): Plan: - Continue PPI (10) DVT prophylaxis: Plan: Lovenox 40 mg SQ daily -> No signs/symptoms of bleeding and no hx of varices. Likely high VTE risk given cirrhosis. FULL CODE - Per patient in ER. Patient with confusion, but I think still able to make this crucial decision. She answered a clear "yes" to both questions. History of Present Illness Primary Care Provider: Alana Peres MD 67yo F w/ hx of SMALL cirrhosis, chronic diastolic CHF, uncontrolled DM, and morbid obesity who presents with hepatic encephalopathy. Patient was discharged in 04/2022 after a fall. Seen by cardiology at that time. Thought that she was not using her diuretics as prescribed, as she was restarted and became somewhat hypovolemic. Seen by PCP in 05/2022 and stable at that time. Presented tonight for concern for infected urine per ER provider, though it is unclear whether the patient expressed this concern or if family did. On my interview, the patient is encephalopathic. She is awake spontaneously, but speaks very slowly and is a poor historian. She reports that she has not felt well for "weeks," but cannot really tell me what has caused her to not feel well. She denies any particular ROS apart from reporting that she is constipated and has been for "days." Denies any diarrhea, bloody stool, or dark, tarry stool. Denies dysuria, urgency, or other urinary symptoms to me today. Allergies Allergy/AdvReac Type Severity Reaction Status Date / Time ciprofloxacin Allergy Intermediate MOUTH Verified 06/27/22 13:19 BLISTERS, HIVES morphine Allergy Intermediate HIVES, Verified 06/27/22 13:19 "DEATHLY ILL", THROWS UP oxycodone Allergy Intermediate HIVES, Verified 06/27/22 13:19 VOMITING penicillin V Allergy Intermediate HIVES Verified 06/27/22 13:19 Home Medications Medication Instructions Recorded Confirmed Type nitroglycerin 0.4 mg sublingual 0.4 mg sublingual UD PRN Chest Pain 10/10/18 07/14/22 History tablet (Nitrostat) rosuvastatin 40 mg tablet 40 mg PO HS 10/10/18 07/14/22 History lancets (OneTouch UltraSoft #100 ea 04/05/20 05/16/22 History Lancets) flash glucose scanning reader #1 ea 06/05/20 05/16/22 Rx (FreeStyle Courtney 2 [place]) BD Ultra-Fine Mini Pen Needle 31 #300 ea 10/30/20 05/16/22 Rx gauge x 3/16" (pen needle, diabetic) lisinopril 2.5 mg tablet 2.5 mg PO QAM 10/11/21 07/14/22 History nadolol 20 mg tablet 10 mg PO QAM 10/11/21 07/14/22 History albuterol sulfate 90 mcg/actuation 2 puff inhalation Q4 PRN Shortness 12/20/21 07/14/22 Rx aerosol inhaler (ProAir HFA) Of Breath Or Wheezing #8.5 grams potassium chloride 10 mEq 10 meq PO 3XWK 03/26/22 07/14/22 History tablet,extended release spironolactone 100 mg tablet 100 mg PO DAILY 03/26/22 07/14/22 History Shower Chair #1 ea 03/28/22 05/16/22 Rx omeprazole 40 mg capsule,delayed 40 mg PO QAM #90 caps 04/21/22 07/14/22 Rx release duloxetine 60 mg capsule,delayed 60 mg PO HS 05/10/22 07/14/22 History release ezetimibe 10 mg tablet 10 mg PO DAILY 05/10/22 07/14/22 History cranberry fruit 450 mg tablet 450 mg PO DAILY 05/16/22 07/14/22 History (cranberry) insulin regular hum U-500 conc 500 See Rx Instructions .Route .COMPLEX 05/16/22 07/14/22 History unit/mL(3 mL) subcut pen (Humulin R U-500 (Conc) Insulin Kwikpen) magnesium hydroxide 400 mg/5 mL 60 ml PO DAILY PRN constipation 05/20/22 07/14/22 Rx oral suspension (Milk of Magnesia) #355 mL torsemide 40 mg tablet 40 mg PO QAM #90 tabs 06/10/22 07/14/22 Rx sertraline 50 mg tablet (Zoloft) 50 mg PO DAILY 06/27/22 07/14/22 History blood sugar diagnostic #100 ea 07/01/22 Rx flash glucose sensor (FreeStyle #2 ea 07/01/22 Rx Courtney 2 Sensor kit) ondansetron 4 mg disintegrating 4 mg PO Q8 PRN Nausea 07/14/22 07/14/22 History tablet semaglutide 2 mg/dose (8 mg/3 mL) 2 mg subcut WK 07/14/22 07/14/22 History subcutaneous pen injector (Ozempic) Past Med/Surg History Medical History Cancer UTERINE CANCER SKIN CANCER Cardiac murmur Chronic kidney disease STAGE 3-4? F/U PCP Congestive heart failure Constipation Diffuse myofascial pain syndrome Diverticular disease DM2 (diabetes mellitus, type 2) IDDM Fall Fatty liver PER PT ROME (generalized anxiety disorder) Gastroparesis GERD (gastroesophageal reflux disease) History of anesthesia reaction difficulty waking History of COVID-19 09/2020 @ [facility]--headache/diarrhea--no issues now HLD (hyperlipidemia) HTN (hypertension) Hx MRSA infection Hypokalemia IBS (irritable bowel syndrome) Migraine Morbid obesity with BMI of 45.0-49.9, adult Nausea and vomiting after administration of anesthetic agent Occasional tremors AT NIGHT GARRETT on CPAP Osteoarthritis Surgical History Cancer MELANOMA SIDE LEFT FACE-EXCISION H/O esophagogastroduodenoscopy H/O eye surgery LASER RT/LEFT FOR HIGH PRESSURE History of appendectomy History of bladder surgery BLADDER TACK History of colonoscopy History of left heart catheterization (LHC) "normal 2001" History of tooth extraction History of total knee replacement RIGHT S/P cholecystectomy S/P [facility] 1983 Family History Father Diabetes Sister Ovarian cancer Family history of diabetes mellitus Sister Family history of diabetes mellitus Mother Breast cancer Family history of reaction to anesthesia slow to wake--n/v Grandmother (Maternal) Myocardial infarction Uncle Prostate cancer Other Cancer Gallbladder disease Heart disease Hypertension Lung disease Denies family history of Colon cancer Social History Smoking Status: Never smoker Second Hand Exposure: No; Hx Alcohol Use: No Hx Substance Use: No Preferred Language: Romanian Communication Ability: Effective Visual Impairment: No Limitations Hearing Ability: Normal Retail Attendant Required: No Beliefs That Will Affect Care: None marital status: Current Living Situation: Other Current Living Situation Comment: roommate at independent living current occupational status: retired current occupation: worked as [employer] Feels Safe at Home: Yes Childhood Exposure to Second-Hand Smoke: Yes Dental Care, Regularly: Yes Physical Activity Frequency: 3-4 Times per Week Seatbelt Use: always Sunscreen Use: Yes Assistive Devices: Walker Review of Systems Review of Systems: Unobtainable due to cognitive status and Unobtainable due to reduced consciousness Physical Exam Constitutional: WD/WN, vitals as above + ill appearing, + morbidly obese and + lethargic Eyes: EOM intact bilaterally; no conjunctival abnormality ENMT: external ear and nose normal, oropharynx normal Neck: trachea midline, no thyromegaly normal visual inspection Respiratory: normal respiratory effort, lungs clear to auscultation no respiratory distress Cardiovascular: RRR, no murmur, no edema Gastrointestinal (Abdomen): Inspection/Auscultation: abdomen normal to inspection; abdomen not distended Percussion/Palpation: abdomen soft; abdomen nontender, no guarding, abdomen not rigid and no ascites Musculoskeletal: Extremities: extremities normal to inspection Skin: no rashes, warm and dry Particularly, no rash/erythema on abdomen or in pannus on my exam Neurologic: moves all extremities, awake and + confused Psychiatric: Orientation: oriented to person and cooperative; + not alert Results & Data Results & Data ([facility]) Vital Signs (Past 12 Hours) Vital Signs Temp Pulse Pulse Resp BP BP Pulse Ox 07/14/22 22:00 96 H 20 120/49 L 96 07/14/22 20:00 64 15 135/54 L 96 07/14/22 19:36 63 15 98 07/14/22 18:47 98 07/14/22 18:04 62 20 135/54 L 97 07/14/22 18:33 36.8 C 57 L 20 137/57 L 98 O2 Del Method 07/14/22 22:00 Room Air 07/14/22 20:00 07/14/22 19:36 07/14/22 18:47 Room Air 07/14/22 18:04 Room Air 07/14/22 18:33 Room Air Code Status & VTE Plan VTE Prophylaxis Plan VTE Prophylaxis will be ordered: Yes PG Care Time/CCT Total # of Minutes Spent Total Time Spent with Patient: Total time spent is greater than 50% in coordination of care (as documented) at patient's floor/unit and/or counseling patient: Coding Level of Care Code 60183 Initial Inpt Care Lvl 3 Diagnoses Hepatic encephalopathy K76.82 Hematuria R31.9 Hematuria type: unspecified type Chronic diastolic heart failure I50.[address] scan R93.89 Uncontrolled type 2 diabetes mellitus with neurologic complication, with long- term current use of insulin E11.49; E11.65; Z79.4 Depression F32.9 HTN (hypertension) I10 HLD (hyperlipidemia) E78.5 GERD (gastroesophageal reflux disease) K21.9 DVT prophylaxis Z29.9 (1) Hematuria Hematuria type: unspecified type Qualified Code(s): R31.9 - Hematuria, unspecified
[2022-07-15] MEDS ORDERED: CARBOHYDRATES FOR HYPOGLYCEMIA PO PRN (00:41)
[2022-07-15] MEDS ORDERED: GLUCOSE 40% GEL 15 GM TUBE PO PRN (00:41)
[2022-07-15] MEDS ORDERED: POTASSIUM CHLORIDE CRTAB 20 MEQ TABCR PO STA (00:41)
[2022-07-15] MEDS ORDERED: GLUCOSE 10 TAB/TUBE PO PRN (00:41)
[2022-07-15] MEDS ORDERED: DEXTROSE 50% 50 ML SYRINGE IV PRN (00:41)
[2022-07-15] MEDS ORDERED: ONDANSETRON INJ 2 MG/ML 2 ML VIAL IV PRN (00:41)
[2022-07-15] MEDS ORDERED: GLUCAGON FOR INJ 1 MG VIAL SQ PRN (00:41)
[2022-07-15] MEDS ORDERED: PHARMACY GLYCEMIC MGMT CONSULT PRN (00:41)
[2022-07-15 05:03] LABS: Hematocrit (blood only) 38.7 % (34.1-44.9); Hemoglobin 13.4 g/dl (12.0-16.0); Mean Corpuscular Hemoglobin 30.8 pg (25.0-34.0); Mean Corpuscular Hgb Conc 34.6 g/dL (32.0-36.0); Platelet Count 176 K/uL (130-400); RDW Coefficient of Variation 14.3 % (11.5-14.5); RDW Standard Deviation 46.5 fL (36.4-46.3); Red Blood Count 4.35 M/uL (3.93-5.22); White Blood Count 9.16 K/ul (4.8-10.8)
[2022-07-15 05:31] LABS: Alanine Aminotransferase 38 U/L (7-52); Albumin Globulin Ratio 0.8 (0.9-2); Albumin Level 3.2 gm/dl (3.4-5.0); Alkaline Phosphatase 77 U/L (34-104); Anion Gap 7 (3-11); BUN Creatinine Ratio 32.9 (10-20); Bilirubin,Total 1.3 mg/dl (0.2-1.0); Blood Urea Nitrogen 27 mg/dl (6-23); Calcium 8.7 mg/dl (8.5-10.1); Carbon Dioxide 31 mmol/L (21-32); Chloride 103 mmol/L (98-107); Est GFR (African American) 85.8 ml/min; Globulin 3.9 gm/dl (2.5-4.0); Glucose 58 mg/dl (70-99(Fasting)); Magnesium 2.1 mg/dl (1.7-2.4); Sodium 141 mmol/L (136-145); Total Protein 7.1 gm/dl (6.0-8.3)
[2022-07-15 07:17] LABS: Potassium 3.3 mmol/L (3.5-5.1)
[2022-07-15 08:06] LABS: Estimated Average Glucose 140 mg/dl; Hemoglobin A1C 6.5 % (4.5-5.6)
[2022-07-15] MEDS: ENOXAPARIN INJ 40 MG/0.4 ML SYR SQ SCH (10:22)
[2022-07-15] MEDS: lisinopril 2.5 MG TAB PO SCH (10:23)
[2022-07-15] MEDS: nadoloL 40 MG TAB PO SCH (10:23)
[2022-07-15] MEDS: LACTULOSE SYRUP 30 GM/45 ML UDP PO SCH ×3 (10:23→20:33)
[2022-07-15] MEDS: PANTOprazole 40 MG TAB PO SCH (10:24)
[2022-07-15] MEDS: SERTRALINE HCL 50 MG TABLET PO SCH (10:24)
[2022-07-15] MEDS: EZETIMIBE 10 MG TABLET PO SCH (10:25)
[2022-07-15] MEDS: INSULIN ASPART PER UNIT SC SCH ×4 (10:25→20:32)
--- NOTE | 2022-07-15 12:52 | Electrocardiogram Report ---
Test Reason : Blood Pressure : / mmHG Vent. Rate : 062 BPM Atrial Rate : 062 BPM P-R Int : 172 ms QRS Dur : 114 ms QT Int : 458 ms P-R-T Axes : 041 005 051 degrees QTc Int : 464 ms Poor data quality, interpretation may be adversely affected Normal sinus rhythm Normal ECG When compared with ECG of 27-JUN-2022 11:29, No significant change was found Confirmed by Henri Singer ([id number]) on 07/15/2022 12:52:13 PM Referred By: REFERRED SELF Confirmed By:Jorge Singer
[2022-07-15] MEDS ORDERED: LANTUS PER UNIT CHARGE SQ ONE (13:45)
--- NOTE | 2022-07-15 14:00 | Gastrointestinal Consultation ---
Date of Consultation July 15, 2022 Assessment & Plan (1) Hepatic encephalopathy: No clear precipitating factor. Likely represents advancing course of cirrhosis. There is no evidence of GI bleeding, infection. Plan Will r/o infection - will check Urine culture. Blood cx are (-) thus far, will continue to watch for final results. CXR w CHF/fluid overload but no evidence of pneumonia. Begin TID lactulose. 2gm sodium diet. Corey continue to follow. Supervising Physician Co-Signing Physician Notes Attg add: I interviewed and examined pt, reviewed chart and labs. Pt with HE, no clear cause. Recs as above, also will need updated contrast enhanced liver imaging. History of Present Illness Reason for Consultation: Hepatic encephalopathy Requesting Physician: Harjeet Umana Attending Physician: Alyse Mathews MD History of Present Illness Ms. Indu Carbone is a 67 yr old female pt of Dr. Peres w a hx of HTN, CHF, GERD, Obesity, SMALL cirrhosis who was brought to the ED by EMS because she was confused. On arrival, CT head was normal and ammonia was elevated at 266. Non contrast CTAP w cirrhosis no acute abnormalities. On exam, she has mild confusion, slow word finding but is oriented to person/place and is able to provide a hx of how/why she is in the ED. Regarding her hx of cirrhosis. She hasn't been seen by GI since 2020 and is due for EGD/Colonoscopy. She is maintained on Nadolol 10mg daily but didn't have any esophageal varices EGD in 2019. She has been well compensated and never previously experienced hepatic encephalopathy. She reports a UTI a few weeks ago but denies any S/S of infection or GI bleeding. Allergies Allergy/AdvReac Type Severity Reaction Status Date / Time ciprofloxacin Allergy Intermediate MOUTH Verified 06/27/22 13:19 BLISTERS, HIVES morphine Allergy Intermediate HIVES, Verified 06/27/22 13:19 "DEATHLY ILL", THROWS UP oxycodone Allergy Intermediate HIVES, Verified 06/27/22 13:19 VOMITING penicillin V Allergy Intermediate HIVES Verified 06/27/22 13:19 Home Medications Medication Instructions Recorded Confirmed Type nitroglycerin 0.4 mg sublingual 0.4 mg sublingual UD PRN Chest Pain 10/10/18 07/14/22 History tablet (Nitrostat) rosuvastatin 40 mg tablet 40 mg PO HS 10/10/18 07/14/22 History lancets (OneTouch UltraSoft #100 ea 04/05/20 05/16/22 History Lancets) flash glucose scanning reader #1 ea 06/05/20 05/16/22 Rx (FreeStyle Courtney 2 [place]) BD Ultra-Fine Mini Pen Needle 31 #300 ea 10/30/20 05/16/22 Rx gauge x 3/16" (pen needle, diabetic) lisinopril 2.5 mg tablet 2.5 mg PO QAM 10/11/21 07/14/22 History nadolol 20 mg tablet 10 mg PO QAM 10/11/21 07/14/22 History albuterol sulfate 90 mcg/actuation 2 puff inhalation Q4 PRN Shortness 12/20/21 07/14/22 Rx aerosol inhaler (ProAir HFA) Of Breath Or Wheezing #8.5 grams potassium chloride 10 mEq 10 meq PO 3XWK 03/26/22 07/14/22 History tablet,extended release spironolactone 100 mg tablet 100 mg PO DAILY 03/26/22 07/14/22 History Shower Chair #1 ea 03/28/22 05/16/22 Rx omeprazole 40 mg capsule,delayed 40 mg PO QAM #90 caps 04/21/22 07/14/22 Rx release duloxetine 60 mg capsule,delayed 60 mg PO HS 05/10/22 07/14/22 History release ezetimibe 10 mg tablet 10 mg PO DAILY 05/10/22 07/14/22 History cranberry fruit 450 mg tablet 450 mg PO DAILY 05/16/22 07/14/22 History (cranberry) insulin regular hum U-500 conc 500 See Rx Instructions .Route .COMPLEX 05/16/22 07/14/22 History unit/mL(3 mL) subcut pen (Humulin R U-500 (Conc) Insulin Kwikpen) magnesium hydroxide 400 mg/5 mL 60 ml PO DAILY PRN constipation 05/20/22 07/14/22 Rx oral suspension (Milk of Magnesia) #355 mL torsemide 40 mg tablet 40 mg PO QAM #90 tabs 06/10/22 07/14/22 Rx sertraline 50 mg tablet (Zoloft) 50 mg PO DAILY 06/27/22 07/14/22 History blood sugar diagnostic #100 ea 07/01/22 Rx flash glucose sensor (FreeStyle #2 ea 07/01/22 Rx Courtney 2 Sensor kit) ondansetron 4 mg disintegrating 4 mg PO Q8 PRN Nausea 07/14/22 07/14/22 History tablet semaglutide 2 mg/dose (8 mg/3 mL) 2 mg subcut WK 07/14/22 07/14/22 History subcutaneous pen injector (Ozempic) Patient History Medical History Cancer UTERINE CANCER SKIN CANCER Cardiac murmur Chronic kidney disease STAGE 3-4? F/U PCP Congestive heart failure Constipation Diffuse myofascial pain syndrome Diverticular disease DM2 (diabetes mellitus, type 2) IDDM Fall Fatty liver PER PT ROME (generalized anxiety disorder) Gastroparesis GERD (gastroesophageal reflux disease) History of anesthesia reaction difficulty waking History of COVID-19 09/2020 @ [facility]--headache/diarrhea--no issues now HLD (hyperlipidemia) HTN (hypertension) Hx MRSA infection Hypokalemia IBS (irritable bowel syndrome) Migraine Morbid obesity with BMI of 45.0-49.9, adult Nausea and vomiting after administration of anesthetic agent Occasional tremors AT NIGHT GARRETT on CPAP Osteoarthritis Surgical History Cancer MELANOMA SIDE LEFT FACE-EXCISION H/O esophagogastroduodenoscopy H/O eye surgery LASER RT/LEFT FOR HIGH PRESSURE History of appendectomy History of bladder surgery BLADDER TACK History of colonoscopy History of left heart catheterization (LHC) "normal 2001" History of tooth extraction History of total knee replacement RIGHT S/P cholecystectomy S/P [facility]-BS[facility] 1983 Family History Father Diabetes Sister Ovarian cancer Family history of diabetes mellitus Sister Family history of diabetes mellitus Mother Breast cancer Family history of reaction to anesthesia slow to wake--n/v Grandmother (Maternal) Myocardial infarction Uncle Prostate cancer Other Cancer Gallbladder disease Heart disease Hypertension Lung disease Denies family history of Colon cancer Social History Smoking Status: Never smoker Second Hand Exposure: No; Hx Alcohol Use: No Hx Substance Use: No Preferred Language: Ug[place]an Communication Ability: Effective Visual Impairment: No Limitations Hearing Ability: Normal Head Refrigeration Engineer Required: No Beliefs That Will Affect Care: None marital status: Current Living Situation: Other Current Living Situation Comment: roommate at independent living facility current occupational status: retired current occupation: worked as [employer] Feels Safe at Home: Yes Safety Concerns: Feels Safe At This Time Childhood Exposure to Second-Hand Smoke: Yes Dental Care, Regularly: Yes Physical Activity Frequency: 3-4 Times per Week Seatbelt Use: always Sunscreen Use: Yes Assistive Devices: Raised Toilet Seat and Walker Review of Systems Review of Systems: ROS: Gen: + weakness; No fevers, no weight loss Eyes: No eye redness, or pain, no recent vision changes Resp: No SOB, no cough Cardio: No palpitations/irregular beats, no chest pain GI: No abdominal pain, no nausea/vomiting, no blood in BMs : Denies pain on urination or blood in urine Skin: No jaundice, itching or new rashes Ext: no edema Physical Exam Constitutional: well developed, well nourished, + obese and + altered mental status; no acute distress Eyes: PERRL, conjunctivae normal, anicteric sclerae ENMT: external ear and nose normal, oropharynx normal Neck: trachea midline, no thyromegaly Respiratory: normal respiratory effort, lungs clear to auscultation Cardiovascular: RRR, no murmur, no edema Gastrointestinal (Abdomen): Inspection/Auscultation: abdomen normal to inspection and normal bowel sounds; abdomen not distended and no abdominal edema Musculoskeletal: no cyanosis or clubbing, extremities motor strength 5/5 Skin: no rashes, warm and dry Neurologic: PERRL, EOMI, accommodation nl, no face palsy, no dysarthria No asterix Psychiatric: A+Ox3, euthymic affect Lymphatic: no cervical or axillary lymphadenopathy Results & Data ([facility]) Vital Signs (Past 12 Hours) Vital Signs Pulse Resp BP Pulse Ox O2 Del Method 07/15/22 11:00 66 18 110/60 95 Room Air 07/15/22 06:00 60 20 115/44 L 100 Room Air 07/15/22 02:00 54 L 18 128/51 L 97 Room Air Laboratory Results WBC 9.16, Hb 13.4, Hct 38.7, Plts 176, PT 12, INR 1.1, Na 141, K 3.3, Cl 103, CO2 31, BUN 27, Cr 0.8, plts 58. T Bili 1.3, AST 82, ALT 38, Alk Phos 77, Ammonia 266 Diagnostic Findings Non contrast CTAP 07/14/22: 1. No acute infectious or inflammatory findings are identified in the abdomen or pelvis. 2. Significant bladder distention. 3. There is fullness of the renal collecting system bilaterally, likely related to the degree of bladder distention. There are no renal calculi identified and no hydronephrosis is seen. 4. Cirrhotic liver morphology. 5. There is induration of the pelvic pannus. Correlate clinically for evidence of cellulitis.
--- NOTE | 2022-07-15 14:32 | Pharmacy Report ---
Pharmacy Glycemic Short Note 2 - Date of Service July 15, 2022 - Glycemic Short BSG Results (Last 24 hours): 07/14/22 07/14/22 07/15/22 19:20 20:45 04:45 Glucose 71 58 L POC Glucose 74 07/15/22 07/15/22 09:30 10:20 Glucose POC Glucose 66 L* 121 H OUTPATIENT ANTIDIABETIC REGIMEN: * Ozempic * U-500 --> 130 units in the morning and 20 units in the PM * HbA1C = 6.5% (07/15/22) ASSESSMENT: * Ms Carbone is a 67 y/o F with a PMH of T2DM who presents with hepatic encephalopathy. Patient's BSG on admission was 74 mg/dL. * Fasting this morning was low at 58. * By lunch, BSG had rebounded due to treatment of hypoglycemia + holding basal. * Per previous admission, patient required NPH 65 units in AM + 15 units in PM. Since patient's PO intake in questionable, will utilize Lantus this admission. Start with 50 units (about 40% reduction from what patient required last admission). Scale for this evening. * Novolog with parameters from last admission. PLAN FOR INPATIENT GLYCEMIC CONTROL: * Hold outpatient oral diabetes medications * Basal insulin * Lantus 50 units SQ x 1 then 0-15 units HS then reassess 07/16 AM * Bolus insulin * NovoLog per scale ACHS or Q6hrs while NPO * Goal Range: Low 110 mg/dL - High 140 mg/dL * Correction Factor: 15 mg/dL/unit * Nutritional / Prandial insulin per carb ratio of 1 unit per 5 grams CHO consumed
--- NOTE | 2022-07-15 16:16 | Progress Note ---
Date of Service July 15, 2022 Assessment & Plan (1) Hepatic encephalopathy: Plan: * Presented with an ammonia level of 266. Her mental status has greatly improved and she is more conversant and provides historical information today. While her ammonia level was not repeated, clinically, she has improved. We will repeat ammonia in a.m. * Appreciate GI consultation. * Continue lactulose as scheduled. (2) Hematuria: Plan: * Findings do not appear consistent with UTI Hematuria type: unspecified type Qualified Code(s): R31.9 - Hematuria, unspecified (3) Chronic diastolic heart failure: Plan: * Will look at restarting her torsemide and prolactin tomorrow (4) Uncontrolled type 2 diabetes mellitus with neurologic complication, with long-term current use of insulin: Plan: * Continue with ISS. * Hemoglobin A1c improved to 6.5. (5) HTN (hypertension): Plan: * Continue home medications as tolerated. (6) HLD (hyperlipidemia): Plan: * Continue statin therapy. (7) GERD (gastroesophageal reflux disease): Plan: * Continue PPI. (8) Depression: Plan: Continue home medications as tolerated. Admission and Anticipated Discharge Date Admission Date: July 14, 2022 Supervising Physician Co-Signing Physician Notes DIMA Supervision Note: I did not personally see or examine the patient today, but I verified all deshpande points of DIMA Noriega's assessment and plan with the following exceptions/additions: None Subjective Patient seen and evaluated at bedside. She is much more awake, alert, and oriented than documents stated yesterday. She is able to contribute to HPI. She is aware that her ammonia levels are high which likely resulted in her encephalopathy. Per conversation with nurse, she has had 2 doses of lactulose without bowel movement. She is complaining of some mild low back pain which she reports has been ongoing for several days. Otherwise, she offers no complaints at this time. Review of Systems Review of Systems: A complete 10 point review of systems was reviewed with the patient with pertinent positives and negatives as per history of present illness. All else were negative. Physical Exam Physical Exam: VITAL SIGNS - Vital signs and nursing notes were reviewed. GENERAL - 67-year-old female appearing her stated age who is in no acute distress. Communicates well with provider and answers questions appropriately. HEAD - NC/AT. EYES - PERRL with EOMI bilaterally. Sclera anicteric. P LUNGS - Chest wall symmetric without accessory muscle use, intercostals retractions, or central cyanosis. Normal vesicular breath sounds CTA B/L. No wheezes, rales, or rhonchi appreciated. CARDIAC - RRR with S1/S2. No murmur, rubs, or gallops appreciated. ABDOMEN - Abdominal contour obese without pulsations or visible masses. Negative Ba's or Davis Tello's Signs. BS normoactive all four quadrants. No tenderness to palpation appreciated throughout. No guarding. No Rebound Tenderness. No palpable masses, hepatosplenomegaly, or ascites noted. EXTREMITIES - No clubbing or peripheral cyanosis. No pretibial edema present. +3/5 radial and dorsalis pedis pulses palpated throughout. +5/5 strength noted in UE/LE bilaterally. NEUROLOGIC - Cranial nerves II through XII grossly intact. Sensory intact to light touch throughout. PSYCH - A&Ox3 and cooperates fully with examiner. Pt is very pleasant and interacts well with examiner. Results & Data ([facility]) Vital Signs (Past 12 Hours) Vital Signs Pulse Resp BP Pulse Ox O2 Del Method 07/15/22 11:00 66 18 110/60 95 Room Air 07/15/22 06:00 60 20 115/44 L 100 Room Air PG Care Time/CCT Total # of Minutes Spent Total Time Spent with Patient: Total time spent is greater than 50% in coordination of care (as documented) at patient's floor/unit and/or counseling patient: Coding Level of Care Code 53267 Subseq Hosp Care Lvl 3 Diagnoses Hepatic encephalopathy K76.82 Hematuria R31.9 Hematuria type: unspecified type Chronic diastolic heart failure I50.32 Uncontrolled type 2 diabetes mellitus with neurologic complication, with long- term current use of insulin E11.49; E11.65; Z79.4 HTN (hypertension) I10 HLD (hyperlipidemia) E78.5 GERD (gastroesophageal reflux disease) K21.9 Depression F32.9 Time Spent (min) 35
[2022-07-15] MEDS: DULoxetine HCL 60 MG CAP PO SCH (20:34)
[2022-07-15] MEDS: ROSUVASTATIN CALCIUM 20 MG TAB PO SCH (20:34)
[2022-07-15] MEDS: ACETAMINOPHEN 500 MG TAB PO PRN (20:36)
[2022-07-15] MEDS ORDERED: LANTUS PER UNIT CHARGE SQ SCH (21:00)
[2022-07-16] MEDS: ACETAMINOPHEN 500 MG TAB PO PRN (03:10)
[2022-07-16 06:44] LABS: Basophils # (auto) 0.05 K/uL (0-0.2); Basophils % (auto) 0.5 %; Eosinophils # (auto) 0.32 K/uL (0-0.50); Eosinophils % (auto) 3.1 %; Hemoglobin 12.9 g/dl (12.0-16.0); Immature Granulocytes # (auto) 0.02 K/uL (0.00-0.02); Immature Granulocytes % (auto) 0.2 %; Lymphocytes % (auto) 20.4 %; Mean Corpuscular Hemoglobin 31.2 pg (25.0-34.0); Mean Corpuscular Hgb Conc 34.9 g/dL (32.0-36.0); Mean Corpuscular Volume 89.4 fL (80.0-100.0); Mean Platelet Volume 10.4 fL (9.4-12.3); Monocytes # (auto) 1.74 K/uL (0.24-0.82); Monocytes % (auto) 16.9 %; Neutrophils # (auto) 6.06 K/uL (1.4-6.5); Neutrophils % (auto) 58.9 %; Platelet Count 157 K/uL (130-400); RDW Coefficient of Variation 14.4 % (11.5-14.5); RDW Standard Deviation 46.6 fL (36.4-46.3); Red Blood Count 4.14 M/uL (3.93-5.22); White Blood Count 10.29 K/ul (4.8-10.8)
[2022-07-16 07:21] LABS: BUN Creatinine Ratio 33.3 (10-20); Calcium 8.6 mg/dl (8.5-10.1); Creatinine Clr Calc Pharmacy 89.1 ml/min; Est GFR (African American) 87.1 ml/min; Est GFR (Non-African American) 75.2 ml/min; Potassium 3.6 mmol/L (3.5-5.1)
[2022-07-16 07:25] LABS: Albumin Level 2.8 gm/dl (3.4-5.0); Bilirubin Direct 0.3 mg/dl (0-0.2); Bilirubin,Total 1.6 mg/dl (0.2-1.0); Total Protein 6.5 gm/dl (6.0-8.3)
--- NOTE | 2022-07-16 07:43 | Hospitalist Progress Note ---
Date of Service July 16, 2022 Assessment & Plan (1) Hepatic encephalopathy: Plan: * Presented with an ammonia level of 266. Mental status continues to greatly improve. She appears back to her baseline at this point. A.m. ammonia was within normal limits at 63.0. she has had 2 bowel movements today. Overall, she is well-appearing at this time. * Awaiting PT evaluation today. * Continue lactulose as scheduled. * Appreciate GI consultation. * GI to make outpatient f/u appointment. (2) Hematuria: Plan: * Findings do not appear consistent with UTI (3) Chronic diastolic heart failure: Plan: * Will restart her torsemide and spironolactone today. (4) Uncontrolled type 2 diabetes mellitus with neurologic complication, with long-term current use of insulin: Plan: * Continue with ISS. * Hemoglobin A1c improved to 6.5. (5) HTN (hypertension): Plan: * Continue home medications as tolerated. (6) HLD (hyperlipidemia): Plan: * Continue statin therapy. (7) GERD (gastroesophageal reflux disease): Plan: * Continue PPI. (8) Depression: Plan: Continue home medications as tolerated. (9) Low back pain: Plan: * Complaining of lumbar back pain today with radiation of pain down the bilateral upper legs. She denies any numbness or tingling. No radicular symptoms noted. Strength equal bilaterally. Pulses equal bilaterally and skin is warm to touch. She does have full range of motion of the lower extremities. Exam with point tenderness over the paraspinal muscle distributions in the lumbar spine. Will put an order for x-ray and provide Lidoderm patches and she does have low-dose Tylenol to take for discomfort. She admits that this pain has been ongoing since she started physical therapy in the outpatient setting. She will undergo PT evaluation today. We will see how she does with ambulation. She is anxious to be discharged home, however it will be dependent on her ambulatory status today. Admission and Anticipated Discharge Date Admission Date: July 14, 2022 Supervising Physician Co-Signing Physician Notes DIMA Supervision Note: I did not personally see or examine the patient today, but I verified all deshpande points of DIMA Noriega's assessment and plan with the following exceptions/additions: None Subjective Patient seen and evaluated by myself at bedside. She is currently sitting in a bedside chair. She was evaluated by Occupational Therapy today and occupational therapist reports that she has great upper body strength and she was able to ambulate with assistance to the restroom. She is complaining of some low back pain with radiation down the lateral aspects of the legs. She denies any falls or recent trauma. She reports that she has been having this back pain which is worsened since she had started inpatient home physical therapy. She denies any weakness into her lower extremities. No loss of control bowel/bladder or sensation of saddle anesthesia. She has been without fevers. Patient states that she feels much better today. She is awake alert and completely oriented at this point. She reports having 2 bowel movements already. She is anxious to get home to care for her. Review of Systems Review of Systems: A complete 10 point review of systems was reviewed with the patient with pertinent positives and negatives as per history of present illness. All else were negative. Physical Exam Physical Exam: VITAL SIGNS - Vital signs and nursing notes were reviewed. GENERAL - 67-year-old female appearing her stated age who is in no acute distress. Communicates well with provider and answers questions appropriately. HEAD - NC/AT. EYES - PERRL with EOMI bilaterally. Sclera anicteric. P LUNGS - Chest wall symmetric without accessory muscle use, intercostals retractions, or central cyanosis. Normal vesicular breath sounds CTA B/L. No wheezes, rales, or rhonchi appreciated. CARDIAC - RRR with S1/S2. No murmur, rubs, or gallops appreciated. ABDOMEN - Abdominal contour obese without pulsations or visible masses. Negative [place]'s or Davis Tello's Signs. BS normoactive all four quadrants. No tenderness to palpation appreciated throughout. No guarding. No Rebound Tenderness. No palpable masses, hepatosplenomegaly, or ascites noted. MUSCULOSKELETAL - ROM of the lumbar spine region was assessed as full. Pt was seated on the exam table. Pt made semi-guarded movements when asked to change position. No step-off deformities were palpated down the thoracolumbar spines. Mild Tenderness to Palpation experienced at the level of the Lumbar paraspinal muscle distribution. Mild reproducible tenderness to palpation across the iliac spine. No point tenderness across the spinous processes NEUROLOGIC - REFLEXES: +3/4 patellar reflexes B/L. SENSORY: Spinothalamic tract was found to be intact with ability to discriminate sharp versus dull sensation at the level of hip joint down do the great toe. No sensory defects of the dorsal column were appreciated utilizing light touch for evaluation. EXTREMITIES - No clubbing or peripheral cyanosis. No pretibial edema present. +3/5 radial and dorsalis pedis pulses palpated throughout. +5/5 strength noted in UE/LE bilaterally. Range of Motion - No tremors, ticks, or fasciculations of the lower extremities noticed during inspection. FROM of the lower extremities. NEUROLOGIC - Cranial nerves II through XII grossly intact. Sensory intact to light touch throughout. PSYCH - A&Ox3 and cooperates fully with examiner. Pt is very pleasant and interacts well with examiner. VASCULAR - Capillary refill of the great toe was brisk. No mottling or blanching of the extremities present. +3/5 dorsalis pedis pulses palpated bilaterally. Results & Data Results & Data ([facility]) Vital Signs (Past 12 Hours) Vital Signs Temp Pulse Pulse Resp BP Pulse Ox O2 Del Method 07/16/22 07:10 69 07/16/22 03:00 36.7 C 65 20 131/69 97 Room Air 07/15/22 23:00 36.8 C 66 20 131/73 92 Room Air 07/15/22 22:01 64 07/15/22 21:53 Room Air (1) Hematuria Hematuria type: unspecified type Qualified Code(s): R31.9 - Hematuria, unspecified
[2022-07-16] MEDS: nadoloL 40 MG TAB PO SCH (07:58)
[2022-07-16] MEDS: EZETIMIBE 10 MG TABLET PO SCH (07:59)
[2022-07-16] MEDS: SERTRALINE HCL 50 MG TABLET PO SCH (08:00)
[2022-07-16] MEDS: PANTOprazole 40 MG TAB PO SCH (08:00)
[2022-07-16] MEDS: lisinopril 2.5 MG TAB PO SCH (08:00)
[2022-07-16] MEDS: ENOXAPARIN INJ 40 MG/0.4 ML SYR SQ SCH (08:01)
[2022-07-16] MEDS: LACTULOSE SYRUP 30 GM/45 ML UDP PO SCH ×4 (08:01→20:13)
[2022-07-16 08:09] LABS: Phosphorus 4.3 mg/dl (2.5-4.9)
[2022-07-16] MEDS: INSULIN ASPART PER UNIT SC SCH ×4 (08:42→20:11)
--- NOTE | 2022-07-16 10:24 | Gastroenterology Progress Note ---
Date of Service July 16, 2022 Assessment & Plan (1) Hepatic encephalopathy: (2) Cirrhosis: Plan: Pt is a 67 yo female w SMALL cirrhosis (MELD 9), admitted w confusion and elevated ammonia level consistent w hepatic encephalopathy. Infectious workup and head CT unremarkable. Pt admits that she had not been taking meds as she is depressed and may have nausea when she takes her meds in the morning. She is AAO x 3 today, wo asterixis - Protonix 40mg daily - Nadolol 10mg daily (goal HR 55-65) - Lactulose (titrate for goal bm 3-5x a day); Xifaxan 550mg BID - Consider psych eval for depression - GI to sign off; pls recall prn Admission and Anticipated Discharge Date Admission Date: July 14, 2022 Supervising Physician Co-Signing Physician Notes Attg add: I reviewed chart and labs. She is clearly improved from admission - currently talking in full sentences, no asterixis. Speech is mildly slow. Cont lactulose, xifaxan on discharge. Please call with questions. Subjective Pt denies any abd pain, n/v. Had 2 BMs yesterday wo rectal bleeding Review of Systems Review of Systems: All systems reviewed & are unremarkable except as noted in HPI & below Physical Exam Constitutional: WD/WN, vitals as above well groomed, cooperative and comfortable Eyes: PERRL, conjunctivae normal, anicteric sclerae ENMT: external ear and nose normal, oropharynx normal Respiratory: normal respiratory effort, lungs clear to auscultation Cardiovascular: RRR, no murmur, no edema Gastrointestinal (Abdomen): normal bowel sounds, soft, nontender, no hepatosplenomegaly Skin: no rashes, warm and dry no jaundice Neurologic: Motor/Sensory: no asterixis Psychiatric: AAO x 3, flat affect Lymphatic: no lymphedema Results & Data ([facility]) Vital Signs (Past 12 Hours) Vital Signs Temp Pulse Pulse Resp BP BP Pulse Ox 07/16/22 09:40 07/16/22 08:00 36.7 C 71 18 132/67 93 07/16/22 07:10 69 07/16/22 03:00 36.7 C 65 20 131/69 97 07/15/22 23:00 36.8 C 66 20 131/73 92 O2 Del Method 07/16/22 09:40 Room Air 07/16/22 08:00 Room Air 07/16/22 07:10 07/16/22 03:00 Room Air 07/15/22 23:00 Room Air
[2022-07-16] MEDS: LIDOCAINE 5% 1 PATCH TD SCH (11:12)
[2022-07-16] MEDS ORDERED: LANTUS PER UNIT CHARGE SQ ONE (12:45)
--- NOTE | 2022-07-16 13:39 | Pharmacy Report ---
Pharmacy Glycemic Short Note 2 - Date of Service July 16, 2022 - Glycemic Short BSG Results (Last 24 hours): 07/15/22 07/15/22 07/16/22 16:41 20:15 06:30 Glucose 83 POC Glucose 194 H 113 H 07/16/22 07/16/22 07:58 12:01 Glucose POC Glucose 89 191 H OUTPATIENT ANTIDIABETIC REGIMEN: * Ozempic * U-500 --> 130 units in the morning and 20 units in the PM * HbA1C = 6.5% (07/15/22) ASSESSMENT: 07/16/22 * BSGs yesterday were [phone] mg/dL. Patient received 73 units of insulin (50 units of basal and 23 units of bolus). * Fasting this AM was 89 mg/dL. * Lantus held until lunchtime since Lantus given yesterday around 1400. Reduce by 20% since fasting below goal range. * Continue Novolog. BACKGROUND * Ms Carbone is a 67 y/o F with a PMH of T2DM who presents with hepatic encephalopathy. Patient's BSG on admission was 74 mg/dL. * Fasting this morning was low at 58. * By lunch, BSG had rebounded due to treatment of hypoglycemia + holding basal. * Per previous admission, patient required NPH 65 units in AM + 15 units in PM. Since patient's PO intake in questionable, will utilize Lantus this admission. Start with 50 units (about 40% reduction from what patient required last admission). Scale for this evening. * Novolog with parameters from last admission. PLAN FOR INPATIENT GLYCEMIC CONTROL: * Hold outpatient oral diabetes medications * Basal insulin * Lantus 40 units SQ daily * Bolus insulin * NovoLog per scale ACHS or Q6hrs while NPO * Goal Range: Low 110 mg/dL - High 140 mg/dL * Correction Factor: 15 mg/dL/unit * Nutritional / Prandial insulin per carb ratio of 1 unit per 5 grams CHO consumed
--- NOTE | 2022-07-16 16:36 | XRay Report ---
LUMBAR SPINE 5 VIEWS CLINICAL HISTORY: Chronic low back pain. FINDINGS: 5 views of the lumbar spine are compared to study dated 05/11/2022. Correlation is made wit h abdominal CT dated 07/14/2022. The skeletal structures are osteopenic. There is no radiographic uziel dence of fracture or malalignment. Vertebral body height and alignment are maintained throughout the lumbar spine. Tiny anterior and lateral marginal osteophytes are seen throughout. Facet arthropathy i s noted in the lower lumbar region. There is no radiographic evidence of spondylolysis. There is mini mal degenerative disc space narrowing. The transverse and spinous processes appear intact. The bony p ugo is intact as visualized. Phleboliths are seen in the pelvis. No bowel obstruction is seen. Ther e is mild atherosclerotic calcification of the abdominal aorta. Cholecystectomy clips are noted in th e right upper quadrant. IMPRESSION: 1. No acute bony abnormality is seen involving the lumbar spine. 2. Osteopenia and mild spondylotic change as above. Dictated: 07/16/2022 3:46 PM Transcribed: 07/16/2022 4:15 PM Dalia [id number] [facility] Electronically signed by: Bravo Moe M.D. 07/16/2022 4:35 PM
[2022-07-16] MEDS: DULoxetine HCL 60 MG CAP PO SCH (20:12)
[2022-07-16] MEDS: rifAXIMin 550 MG TABLET PO SCH (20:13)
[2022-07-16] MEDS: ROSUVASTATIN CALCIUM 20 MG TAB PO SCH (20:14)
[2022-07-17] MEDS: ACETAMINOPHEN 500 MG TAB PO PRN (04:09)
[2022-07-17 08:30] LABS: Basophils # (auto) 0.06 K/uL (0-0.2); Basophils % (auto) 0.6 %; Eosinophils # (auto) 0.43 K/uL (0-0.50); Eosinophils % (auto) 4.5 %; Hematocrit (blood only) 39.2 % (34.1-44.9); Hemoglobin 13.3 g/dl (12.0-16.0); Immature Granulocytes # (auto) 0.03 K/uL (0.00-0.02); Immature Granulocytes % (auto) 0.3 %; Mean Corpuscular Hemoglobin 30.8 pg (25.0-34.0); Mean Corpuscular Hgb Conc 33.9 g/dL (32.0-36.0); Mean Corpuscular Volume 90.7 fL (80.0-100.0); Mean Platelet Volume 10.8 fL (9.4-12.3); Monocytes # (auto) 1.27 K/uL (0.24-0.82); Monocytes % (auto) 13.2 %; Neutrophils # (auto) 5.33 K/uL (1.4-6.5); Neutrophils % (auto) 55.4 %; Platelet Count 181 K/uL (130-400); RDW Coefficient of Variation 14.5 % (11.5-14.5); Red Blood Count 4.32 M/uL (3.93-5.22); White Blood Count 9.62 K/ul (4.8-10.8)
[2022-07-17] MEDS ORDERED: LANTUS PER UNIT CHARGE SQ SCH ×3 (09:00)
[2022-07-17 09:14] LABS: BUN Creatinine Ratio 36.9 (10-20); Calcium 8.7 mg/dl (8.5-10.1); Creatinine Clr Calc Pharmacy 85.9 ml/min; Est GFR (African American) 83.4 ml/min; Est GFR (Non-African American) 71.9 ml/min; Magnesium 2.1 mg/dl (1.7-2.4); Phosphorus 3.1 mg/dl (2.5-4.9); Potassium 3.8 mmol/L (3.5-5.1)
[2022-07-17] MEDS: EZETIMIBE 10 MG TABLET PO SCH (09:14)
[2022-07-17] MEDS: nadoloL 40 MG TAB PO SCH (09:14)
[2022-07-17] MEDS: ENOXAPARIN INJ 40 MG/0.4 ML SYR SQ SCH (09:15)
[2022-07-17] MEDS: LACTULOSE SYRUP 30 GM/45 ML UDP PO SCH ×2 (09:15→13:14)
[2022-07-17] MEDS: PANTOprazole 40 MG TAB PO SCH (09:15)
[2022-07-17] MEDS: LIDOCAINE 5% 1 PATCH TD SCH (09:15)
[2022-07-17] MEDS: rifAXIMin 550 MG TABLET PO SCH (09:16)
[2022-07-17] MEDS: SERTRALINE HCL 50 MG TABLET PO SCH (09:16)
[2022-07-17] MEDS: lisinopril 2.5 MG TAB PO SCH (09:16)
[2022-07-17] MEDS: INSULIN ASPART PER UNIT SC SCH ×2 (09:17→13:13)
--- NOTE | 2022-07-17 09:50 | Hospitalist Progress Note ---
Date of Service July 17, 2022 Assessment & Plan (1) Hepatic encephalopathy: Plan: * Presented with an ammonia level of 266. Mental status continues to greatly improve. She appears back to her baseline at this point. A.m. ammonia was within normal limits at 63.0. she has had 2 bowel movements today. Overall, she is well-appearing at this time. * Awaiting PT evaluation today. * Continue lactulose as scheduled. * Appreciate GI consultation. * GI to make outpatient f/u appointment. (2) Hematuria: Plan: * Findings do not appear consistent with UTI (3) Chronic diastolic heart failure: Plan: * Will restart her torsemide and spironolactone today. (4) Uncontrolled type 2 diabetes mellitus with neurologic complication, with long-term current use of insulin: Plan: * Continue with ISS. * Hemoglobin A1c improved to 6.5. (5) HTN (hypertension): Plan: * Continue home medications as tolerated. (6) HLD (hyperlipidemia): Plan: * Continue statin therapy. (7) GERD (gastroesophageal reflux disease): Plan: * Continue PPI. (8) Depression: Plan: Continue home medications as tolerated. (9) Low back pain: Plan: * Complaining of lumbar back pain today with radiation of pain down the bilateral upper legs. She denies any numbness or tingling. No radicular symptoms noted. Strength equal bilaterally. Pulses equal bilaterally and skin is warm to touch. She does have full range of motion of the lower extremities. Exam with point tenderness over the paraspinal muscle distributions in the lumbar spine. Will put an order for x-ray and provide Lidoderm patches and she does have low-dose Tylenol to take for discomfort. She admits that this pain has been ongoing since she started physical therapy in the outpatient setting. She will undergo PT evaluation today. We will see how she does with ambulation. She is anxious to be discharged home, however it will be dependent on her ambulatory status today. Admission and Anticipated Discharge Date Admission Date: July 14, 2022 Review of Systems Review of Systems: A complete 10 point review of systems was reviewed with the patient with pertinent positives and negatives as per history of present illness. All else were negative. Physical Exam Physical Exam: VITAL SIGNS - Vital signs and nursing notes were reviewed. GENERAL - 67-year-old female appearing her stated age who is in no acute distress. Communicates well with provider and answers questions appropriately. HEAD - NC/AT. EYES - PERRL with EOMI bilaterally. Sclera anicteric. P LUNGS - Chest wall symmetric without accessory muscle use, intercostals retractions, or central cyanosis. Normal vesicular breath sounds CTA B/L. No wheezes, rales, or rhonchi appreciated. CARDIAC - RRR with S1/S2. No murmur, rubs, or gallops appreciated. ABDOMEN - Abdominal contour obese without pulsations or visible masses. Negative Ba's or Davis Tello's Signs. BS normoactive all four quadrants. No tenderness to palpation appreciated throughout. No guarding. No Rebound Tenderness. No palpable masses, hepatosplenomegaly, or ascites noted. MUSCULOSKELETAL - ROM of the lumbar spine region was assessed as full. Pt was seated on the exam table. Pt made semi-guarded movements when asked to change position. No step-off deformities were palpated down the thoracolumbar spines. Mild Tenderness to Palpation experienced at the level of the Lumbar paraspinal muscle distribution. Mild reproducible tenderness to palpation across the iliac spine. No point tenderness across the spinous processes NEUROLOGIC - REFLEXES: +3/4 patellar reflexes B/L. SENSORY: Spinothalamic tract was found to be intact with ability to discriminate sharp versus dull sensation at the level of hip joint down do the great toe. No sensory defects of the dorsal column were appreciated utilizing light touch for evaluation. EXTREMITIES - No clubbing or peripheral cyanosis. No pretibial edema present. +3/5 radial and dorsalis pedis pulses palpated throughout. +5/5 strength noted in UE/LE bilaterally. Range of Motion - No tremors, ticks, or fasciculations of the lower extremities noticed during inspection. FROM of the lower extremities. NEUROLOGIC - Cranial nerves II through XII grossly intact. Sensory intact to light touch throughout. PSYCH - A&Ox3 and cooperates fully with examiner. Pt is very pleasant and interacts well with examiner. VASCULAR - Capillary refill of the great toe was brisk. No mottling or blanching of the extremities present. +3/5 dorsalis pedis pulses palpated bilaterally. Results & Data Results & Data ([facility]) Vital Signs (Past 12 Hours) Vital Signs Temp Pulse Pulse Resp BP BP Pulse Ox 07/17/22 08:02 64 07/17/22 07:53 36.7 C 69 16 134/61 96 07/17/22 03:25 36.8 C 66 20 113/62 98 07/16/22 22:01 68 07/16/22 22:00 37.1 C 62 20 137/62 95 O2 Del Method 07/17/22 08:02 07/17/22 07:53 Room Air 07/17/22 03:25 Room Air 07/16/22 22:01 07/16/22 22:00 Room Air (1) Hematuria Hematuria type: unspecified type Qualified Code(s): R31.9 - Hematuria, unspecified
--- NOTE | 2022-07-17 10:03 | Pharmacy Report ---
Pharmacy Glycemic Short Note 2 - Date of Service July 17, 2022 - Glycemic Short BSG Results (Last 24 hours): 07/16/22 07/16/22 07/16/22 12:01 17:03 20:09 Glucose POC Glucose 191 H 199 H 236 H 07/17/22 07/17/22 07:37 08:17 Glucose 173 H POC Glucose 164 H OUTPATIENT ANTIDIABETIC REGIMEN: * Ozempic * U-500 --> 130 units in the morning and 20 units in the PM * HbA1C = 6.5% (07/15/22) ASSESSMENT: 07/17/22 * Indu received 85 units of insulin yesterday (40 units basal + 45 units bolus) * Fasting BSG is trending upward. Basal dose was decreased 20% yesterday. I will slightly increase today. * Patient continues to experience post prandial BSG elevation. Will tighten carb coverage. 07/16/22 * BSGs yesterday were [phone] mg/dL. Patient received 73 units of insulin (50 units of basal and 23 units of bolus). * Fasting this AM was 89 mg/dL. * Lantus held until lunchtime since Lantus given yesterday around 1400. Reduce by 20% since fasting below goal range. * Continue Novolog. BACKGROUND * Ms Carbone is a 67 y/o F with a PMH of T2DM who presents with hepatic encephalopathy. Patient's BSG on admission was 74 mg/dL. * Fasting this morning was low at 58. * By lunch, BSG had rebounded due to treatment of hypoglycemia + holding basal. * Per previous admission, patient required NPH 65 units in AM + 15 units in PM. Since patient's PO intake in questionable, will utilize Lantus this admission. Start with 50 units (about 40% reduction from what patient required last admission). Scale for this evening. * Novolog with parameters from last admission. PLAN FOR INPATIENT GLYCEMIC CONTROL: * Hold outpatient oral diabetes medications * Basal insulin * Lantus 45 units SQ daily * Bolus insulin * NovoLog per scale ACHS or Q6hrs while NPO * Goal Range: Low 110 mg/dL - High 140 mg/dL * Correction Factor: 15 mg/dL/unit * Nutritional / Prandial insulin per carb ratio of 1 unit per 4 grams CHO consumed
--- NOTE | 2022-07-17 12:17 | Discharge Summary ---
Date of Service July 17, 2022 Admission HPI Per Admitting Provider 67yo F w/ hx of SMALL cirrhosis, chronic diastolic CHF, uncontrolled DM, and morbid obesity who presents with hepatic encephalopathy. Patient was discharged in 04/2022 after a fall. Seen by cardiology at that time. Thought that she was not using her diuretics as prescribed, as she was restarted and became somewhat hypovolemic. Seen by PCP in 05/2022 and stable at that time. Presented tonight for concern for infected urine per ER provider, though it is unclear whether the patient expressed this concern or if family did. On my interview, the patient is encephalopathic. She is awake spontaneously, but speaks very slowly and is a poor historian. She reports that she has not felt well for "weeks," but cannot really tell me what has caused her to not feel well. She denies any particular ROS apart from reporting that she is constipated and has been for "days." Denies any diarrhea, bloody stool, or dark, tarry stool. Denies dysuria, urgency, or other urinary symptoms to me today. Admission Exam (Per Admitting) Constitutional Constitutional: WD/WN, vitals as above + ill appearing, + morbidly obese and + lethargic Eyes: EOM intact bilaterally; no conjunctival abnormality ENMT: external ear and nose normal, oropharynx normal Neck: trachea midline, no thyromegaly normal visual inspection Respiratory: normal respiratory effort, lungs clear to auscultation no respiratory distress Cardiovascular: RRR, no murmur, no edema Gastrointestinal (Abdomen): Inspection/Auscultation: abdomen normal to inspection; abdomen not distended Percussion/Palpation: abdomen soft; abdomen nontender, no guarding, abdomen not rigid and no ascites Musculoskeletal: Extremities: extremities normal to inspection Skin: no rashes, warm and dry Particularly, no rash/erythema on abdomen or in pannus on my exam Neurologic: moves all extremities, awake and + confused Psychiatric: Orientation: oriented to person and cooperative; + not alert Discharge Data Consultations 07/14/22 22:23 ED Decision to Admit Stat 07/15/22 00:41 Consult Gastroenterology Routine Hospital Course (1) Hepatic encephalopathy: * Resolved. She is well appearing and back to her baseline. * Case management to set up home health and increased frequency of calls to help her remember her medications. * Continue lactulose/Xifaxan as scheduled. * GI to make outpatient f/u appointment. (2) Hematuria: * Resolved (3) Chronic diastolic heart failure: * Home doses of spironolactone and torsemide started today. (4) Uncontrolled type 2 diabetes mellitus with neurologic complication, with long-term current use of insulin: * Will resume home Rx upon discharge. (5) HTN (hypertension): * Continue outpatient meds. (6) HLD (hyperlipidemia): * Continue home meds. (7) GERD (gastroesophageal reflux disease): * Continue PPI (8) Depression: * Continue home medications. * Home health will increase contact with patient to help her with her medications, etc. (9) Low back pain: * Improved with conservative management. * Likely musculoskeletal. Supervising Physician Co-Signing Physician Notes PA Supervision Note: I did not personally see or examine the patient today, but I verified all deshpande points of DIMA Noriega's assessment and plan with the following exceptions/additions: Pt left before I could see her. Coding Level of Care Code D/C DAY MANAGEMENT >30 MINS Diagnoses Hepatic encephalopathy K76.82 Hematuria R31.9 Hematuria type: unspecified type Chronic diastolic heart failure I50.32 Uncontrolled type 2 diabetes mellitus with neurologic complication, with long- term current use of insulin E11.49; E11.65; Z79.4 HTN (hypertension) I10 HLD (hyperlipidemia) E78.5 GERD (gastroesophageal reflux disease) K21.9 Depression F32.9 Low back pain M54.50 Time Spent (min) 45
[2022-07-18] MEDS ORDERED: INSULIN ASPART PER UNIT SC SCH
== END 2022-07-17 15:17 | disposition home health service (06) | DRG 442 ==
LOC: ED 18:22 → SUATTDRO 23:08 → EDINP 23:08 → 2N 07-15 00:41

== ENCOUNTER 2022-07-29 04:43 | Inpatient (IN) ==
--- NOTE | 2022-07-29 04:58 | Emergency Department Note ---
History of Present Illness General Chief complaint: Fall Stated complaint: Fall x2, Weakness, Cirrhosis Time Seen by Provider: 07/29/22 04:46 Source: patient and EMS Mode of arrival: EMS Limitations: no limitations History of Present Illness Provider complaint: Fall, weakness This is a 67-year-old female presents emergency department via EMS due to concern for recurrent falls. Patient states she fell earlier in the evening while getting up to go to the bathroom, striking her head against the toilet seat. She states she feels weak and unsteady even with using her walker. She called EMS to help get her back up in her chair and then they left. She states sometime later she needed to use the restroom again and try to get up and go the bathroom and again felt weak and unsteady and fell again and this time was unable to get back up. She contacted EMS and they brought her in for additional evaluation. EMS states patient did have evidence of head injury, however vital signs were stable. No pain medication given prior to arrival. Patient states she has been feeling weak and washed out ever since she was admitted recently. No use of antiplatelet or anticoagulation medication. Home Medications Medication Instructions Recorded Confirmed Type nitroglycerin 0.4 mg sublingual 0.4 mg sublingual UD PRN Chest Pain 10/10/18 07/29/22 History tablet (Nitrostat) rosuvastatin 40 mg tablet 40 mg PO .HS UD 10/10/18 07/29/22 History lancets (OneTouch UltraSoft #100 ea 04/05/20 07/29/22 History Lancets) flash glucose scanning reader #1 ea 06/05/20 07/29/22 Rx (FreeStyle [place] 2 [place]) BD Ultra-Fine Mini Pen Needle 31 #300 ea 10/30/20 07/29/22 Rx gauge x 3/16" (pen needle, diabetic) lisinopril 2.5 mg tablet 2.5 mg PO .QAM UD 10/11/21 07/29/22 History nadolol 20 mg tablet 10 mg PO QAM 10/11/21 07/29/22 History albuterol sulfate 90 mcg/actuation 2 puff inhalation Q4 PRN Shortness 12/20/21 07/29/22 Rx aerosol inhaler (ProAir HFA) Of Breath Or Wheezing #8.5 grams potassium chloride 10 mEq 10 meq PO 3XWK 03/26/22 07/29/22 History tablet,extended release spironolactone 100 mg tablet 100 mg PO DAILY 03/26/22 07/29/22 History Shower Chair #1 ea 03/28/22 07/29/22 Rx omeprazole 40 mg capsule,delayed 40 mg PO QAM #90 caps 04/21/22 07/29/22 Rx release duloxetine 60 mg capsule,delayed 60 mg PO HS 05/10/22 07/29/22 History release ezetimibe 10 mg tablet 10 mg PO .DAILY UD 05/10/22 07/29/22 History cranberry fruit 450 mg tablet 450 mg PO DAILY 05/16/22 07/29/22 History (cranberry) insulin regular hum U-500 conc 500 See Rx Instructions .Route .COMPLEX 05/16/22 07/29/22 History unit/mL(3 mL) subcut pen (Humulin R U-500 (Conc) Insulin Kwikpen) magnesium hydroxide 400 mg/5 mL 60 ml PO DAILY PRN constipation 05/20/22 07/29/22 Rx oral suspension (Milk of Magnesia) #355 mL torsemide 40 mg tablet 40 mg PO QAM #90 tabs 06/10/22 07/29/22 Rx sertraline 50 mg tablet (Zoloft) 50 mg PO DAILY 06/27/22 07/29/22 History blood sugar diagnostic #100 ea 07/01/22 07/29/22 Rx flash glucose sensor (FreeStyle #2 ea 07/01/22 07/29/22 Rx Courtney 2 Sensor kit) ondansetron 4 mg disintegrating 4 mg PO Q8 PRN Nausea 07/14/22 07/29/22 History tablet lactulose 20 gram oral packet 20 g PO BID 30 days #30 ea 07/17/22 07/29/22 Rx rifaximin 550 mg tablet (Xifaxan) 550 mg PO BID 30 days #60 tabs 07/17/22 07/29/22 Rx miscellaneous medical supply #1 ea 07/25/22 07/29/22 Rx diclofenac sodium 1 % topical gel 2 g topical QID #100 grams 07/28/22 07/29/22 Rx (Voltaren Arthritis Pain) Allergies Allergy/AdvReac Type Severity Reaction Status Date / Time ciprofloxacin Allergy Intermediate MOUTH Verified 07/29/22 11:27 BLISTERS, HIVES morphine Allergy Intermediate HIVES, Verified 07/29/22 11:27 "DEATHLY ILL", THROWS UP oxycodone Allergy Intermediate HIVES, Verified 07/29/22 11:27 VOMITING penicillin V Allergy Intermediate HIVES Verified 07/29/22 11:27 Past Med/Surg History Medical History Acute alteration in mental status Acute metabolic encephalopathy Cancer UTERINE CANCER SKIN CANCER Cardiac murmur Chronic kidney disease STAGE 3-4? F/U PCP Congestive heart failure Constipation Diffuse myofascial pain syndrome Diverticular disease DM2 (diabetes mellitus, type 2) IDDM Fall Fatty liver PER PT ROME (generalized anxiety disorder) Gastroparesis GERD (gastroesophageal reflux disease) History of anesthesia reaction difficulty waking History of COVID-19 09/2020 @ [facility]--headache/diarrhea--no issues now HLD (hyperlipidemia) HTN (hypertension) Hx MRSA infection Hypokalemia IBS (irritable bowel syndrome) Migraine Morbid obesity with BMI of 45.0-49.9, adult Nausea and vomiting after administration of anesthetic agent Occasional tremors AT NIGHT GARRETT on CPAP Osteoarthritis Serum ammonia increased Surgical History Cancer MELANOMA SIDE LEFT FACE-EXCISION H/O esophagogastroduodenoscopy H/O eye surgery LASER RT/LEFT FOR HIGH PRESSURE History of appendectomy History of bladder surgery BLADDER TACK History of colonoscopy History of left heart catheterization (LHC) "normal 2001" History of tooth extraction History of total knee replacement RIGHT S/P cholecystectomy S/P [facility] 1983 Family History Father Diabetes Sister Ovarian cancer Family history of diabetes mellitus Sister Family history of diabetes mellitus Mother Breast cancer Family history of reaction to anesthesia slow to wake--n/v Grandmother (Maternal) Myocardial infarction Uncle Prostate cancer Other Cancer Gallbladder disease Heart disease Hypertension Lung disease Denies family history of Colon cancer Social History Smoking Status: Never smoker Second Hand Exposure: No; Do You Dip or Chew Tobacco: No; Tobacco Cessation Education Requested by Patient: No Hx Alcohol Use: No Hx Substance Use: No Preferred Language: Welsh Communication Ability: Effective Visual Impairment: No Limitations Hearing Ability: Normal Magnet Valve Assembler Required: No Beliefs That Will Affect Care: None marital status: Current Living Situation: Alone Current Living Situation Comment: roommate at independent living facility current occupational status: retired current occupation: worked as [employer] Other Information That Helps Us Care for You: No Feels Safe at Home: Yes Safety Concerns: Feels Safe At This Time Childhood Exposure to Second-Hand Smoke: Yes Dental Care, Regularly: Yes Physical Activity Frequency: 3-4 Times per Week Seatbelt Use: always Sunscreen Use: Yes Assistive Devices: Raised Toilet Seat, Scooter/Electric Scooter and Walker Assistive Devices Comment: shower chair Review of Systems A total of 10 systems reviewed and were otherwise negative All systems reviewed & are unremarkable except as noted in HPI & below Physical Exam Vital Signs Vital Signs - 24 hr 07/29/22 04:54 07/29/22 04:54 07/29/22 07:36 Temperature 37 C 37 C Temperature Source Oral Oral Pulse Rate 76 Pulse Rate [Apical] 72 70 Pulse Rhythm Regular Pulse Rhythm [Apical] Regular Regular Pulse Strength Normal Pulse Strength [Apical] Normal Normal Respiratory Rate 16 16 22 Respiratory Effort / Characteristics Non-Labored Non-Labored Non-Labored Respiratory Depth Normal Normal Normal Respiratory Pattern Regular Regular Regular Blood Pressure 117/55 L Blood Pressure [Right Arm] 117/55 L 123/58 L Blood Pressure Mean 75 Blood Pressure Mean [Right Arm] 75 79 Blood Pressure Position Lying Blood Pressure Position [Right Arm] Lying Pulse Oximetry 98 99 95 Oxygen Delivery Method Room Air Room Air Room Air Sepsis Recent Fever Within 48 Hours No Sepsis New/Unexplained Change in Mental Status No Sepsis Action Taken by Nursing No Action Required 07/29/22 07:49 Temperature Temperature Source Pulse Rate Pulse Rate [Apical] 74 Pulse Rhythm Pulse Rhythm [Apical] Pulse Strength Pulse Strength [Apical] Respiratory Rate 20 Respiratory Effort / Characteristics Respiratory Depth Respiratory Pattern Blood Pressure Blood Pressure [Right Arm] 122/53 L Blood Pressure Mean Blood Pressure Mean [Right Arm] 76 Blood Pressure Position Blood Pressure Position [Right Arm] Pulse Oximetry 94 Oxygen Delivery Method Room Air Sepsis Recent Fever Within 48 Hours Sepsis New/Unexplained Change in Mental Status Sepsis Action Taken by Nursing GENERAL: alert, well appearing, well nourished, no distress, non-toxic, BMI 44 HEAD: Contusion noted right supraorbital ridge, pain with palpation in this area, no other evidence of facial trauma, no midface instability, no starks signs or raccoon eyes EYE EXAM: normal conjunctiva, PERRL and EOM's grossly intact OROPHARYNX: no exudate, no erythema, lips, buccal mucosa, and tongue normal and mucous membranes are moist NECK: supple, no nuchal rigidity, no adenopathy, non-tender, FROM LUNGS: Clear to auscultation. Normal chest wall mechanics, no w/r/r HEART: no murmurs, S1 normal and S2 normal ABDOMEN: abdomen soft, non-tender, normo-active bowel sounds, no masses, no rebound or guarding. BACK: Back is symmetrical on inspection and there is no deformity, no midline tenderness, no CVA tenderness. SKIN: no rashes and no bruising UPPER EXTREMITIES: upper extremities are grossly normal. FROM, nml pulses b/l. No evidence of trauma or deformity. Sensation intact bilaterally. LOWER EXTREMITIES: No pitting edema. FROM, nml pulses b/l. No evidence of trauma or deformity. Faint evolving contusion noted to the right prepatellar region. Well-healed vertical incision noted over the right knee consistent with prior surgery. No joint effusions. Compartments soft. NEURO EXAM: Normal sensorium, cranial nerves II-XII grossly intact, normal speech, no gross weakness of arms, no gross weakness of legs. . Gross sensation intact. Course Course 614: Patient updated on labs and imaging thus far. CT still pending. Patient does live alone. She states she has a physical therapist that comes in once a week and she tries to do exercises at home by herself but still feels that she i s very weak and unsteady despite the aid of her walker. 0740: Discussed with MITCHELL Canela with [place] hospitalist service. Administered Medications Acetaminophen (Acetaminophen 325 Mg Tab) 325 mg PO Q4H PRN PRN Reason: Pain or Fever Stop: 08/28/22 12:45 Last Admin: 07/30/22 00:01 Dose: 325 mg Documented By: CHER Diclofenac Sodium (Diclofenac Sod 1% Gel 100 Gm Tube) 2 gm EXT QID [facility]; Protocol Stop: 08/28/22 12:45 Last Admin: 07/29/22 21:47 Dose: 2 gm Documented By: Admin: 07/29/22 18:24 Dose: Not Given Documented By: Admin: 07/29/22 15:35 Dose: Not Given Documented By: Admin: 07/29/22 15:00 Dose: 2 gm Documented By: ZACH Duloxetine HCl (Duloxetine Hcl 60 Mg Cap) 60 mg PO HS [facility] Stop: 08/28/22 20:59 Last Admin: 07/29/22 21:47 Dose: 60 mg Documented By: GINA Enoxaparin Sodium (Enoxaparin Inj 40 Mg/0.4 Ml Syr) 40 mg SQ Q24H [facility] Stop: 08/28/22 12:45 Last Admin: 07/29/22 14:58 Dose: 40 mg Documented By: ZACH Lactated Ringer's (Lr) 1,000 mls @ 80 mls/hr IV .[id number] [facility] Stop: 07/30/22 01:15 Last Admin: 07/29/22 15:08 Dose: 80 mls/hr Documented By: ZACH Insulin Aspart (Insulin Aspart Per Unit) 0 units SC ACHS [facility] Stop: 08/28/22 13:44 Last Admin: 07/29/22 21:44 Dose: 8 units Documented By: GINA Co-signed By: SABINE(2) Admin: 07/29/22 18:47 Dose: 20 units Documented By: ESPERANZA Co-signed By: LIZETTE Admin: 07/29/22 15:41 Dose: Not Given Documented By: SABINE Lactulose (Lactulose Syrup 20 Gm/30 Ml Udc) 20 gm PO BID [facility] Stop: 08/28/22 13:14 Last Admin: 07/29/22 21:47 Dose: 20 gm Documented By: Admin: 07/29/22 14:54 Dose: 20 gm Documented By: ZACH Nadolol (Nadolol 40 Mg Tab) 10 mg PO [facility] Stop: 08/28/22 12:45 Last Admin: 07/29/22 14:55 Dose: 10 mg Documented By: ZACH Pantoprazole Sodium (Pantoprazole 40 Mg Tab) 40 mg PO QAM [facility] Stop: 08/28/22 13:14 Last Admin: 07/29/22 14:54 Dose: 40 mg Documented By: ZACH Rifaximin (Rifaximin 550 Mg Tablet) 550 mg PO BID [facility] Stop: 08/28/22 12:45 Last Admin: 07/29/22 21:47 Dose: 550 mg Documented By: Admin: 07/29/22 14:54 Dose: 550 mg Documented By: ZACH Sertraline HCl (Sertraline Hcl 50 Mg Tablet) 50 mg PO DAILY [facility] Stop: 08/28/22 12:45 Last Admin: 07/29/22 14:55 Dose: 50 mg Documented By: ZACH Spironolactone (Spironolactone 100 Mg Tab) 100 mg PO DAILY [facility] Stop: 08/28/22 12:45 Last Admin: 07/29/22 14:54 Dose: 100 mg Documented By: ZACH Discontinued Medications Sodium Chloride (Nss) 250 mls @ 999 mls/hr IV .Q16M ONE Stop: 07/29/22 07:12 Last Infusion: 07/29/22 09:11 Dose: 0 mls/hr Documented By: Admin: 07/29/22 08:55 Dose: 999 mls/hr Documented By: ZACH Insulin Glargine (Lantus Per Unit Charge) 40 units SQ ONE ONE Stop: 07/29/22 13:31 Last Admin: 07/29/22 15:08 Dose: 40 units Documented By: ZACH Co-signed By: TESFAYE Medical Decision Making Differential Diagnosis Differential diagnoses include major intracranial, cervical, spinal, thoracic, abdominal, pelvic and neurologic injury. Fracture, contusion, sprain, strain, laceration, abrasions included as well. Medical Records Attestation: I reviewed the patient's medical records. Home Medications Current Medication List: was personally reviewed by me Laboratory Data Attestation: I reviewed the patient's lab results. 07/29/22 05:00 07/29/22 05:00 Lab Results 07/29/22 07/29/22 07/29/22 Range/Units 05:00 05:00 05:00 WBC 12.07 H (4.8-10.8) K/ul RBC 5.09 (3.93-5.22) M/uL Hgb 15.8 (12.0-16.0) g/dl Hct 45.4 H (34.1-44.9) % MCV 89.2 (80.0-100.0) fL MCH 31.0 (25.0-34.0) pg MCHC 34.8 (32.0-36.0) g/dL RDW Std Deviation 46.4 H (36.4-46.3) fL RDW Coeff of Vanesa 14.3 (11.5-14.5) % Plt Count 177 (130-400) K/uL MPV 11.2 (9.4-12.3) fL Immature Gran % (Auto) 0.2 % Neut % (Auto) 68.6 % Lymph % (Auto) 17.4 % [place] % (Auto) 12.1 % Eos % (Auto) 1.3 % Baso % (Auto) 0.4 % Neut # (Auto) 8.27 H (1.4-6.5) K/uL Lymph # (Auto) 2.10 (1.2-3.4) K/uL [place] # (Auto) 1.46 H (0.24-0.82) K/uL Eos # (Auto) 0.16 (0-0.50) K/uL Baso # (Auto) 0.05 (0-0.2) K/uL Immature Gran # (Auto) 0.03 H (0.00-0.02) K/uL PT 12.1 H (9.0-12.0) Seconds INR 1.1 (0.9-1.1) Sodium 135 L (136-145) mmol/L Potassium 3.7 (3.5-5.1) mmol/L Chloride 91 L (98-107) mmol/L Carbon Dioxide 33 H (21-32) mmol/L Anion Gap 11 (3-11) BUN 33 H (6-23) mg/dl Creatinine 1.37 H (0.6-1.2) mg/dl Est Cr Clr Drug Dosing 51.7 ml/min Est GFR ( Amer) 46.1 ml/min Est GFR (Non-Af Amer) 39.8 ml/min BUN/Creatinine Ratio 24.1 H (10-20) Glucose 203 H (70-99(Fasting)) mg/dl Calcium 10.2 H (8.5-10.1) mg/dl Magnesium 1.7 (1.7-2.4) mg/dl Total Bilirubin 1.6 H (0.2-1.0) mg/dl AST 63 H (13-39) U/L ALT 45 (7-52) U/L Alkaline Phosphatase 97 (34-104) U/L Troponin I High Sens 13.6 (0-14) pg/ml Total Protein 8.7 H (6.0-8.3) gm/dl Albumin 3.6 (3.4-5.0) gm/dl Globulin 5.1 H (2.5-4.0) gm/dl Albumin/Globulin Ratio 0.7 L (0.9-2) TSH (0.300-4.500) uIu/ml Urine Color Urine Appearance (Clear) Urine pH (4.5-7.5) Ur Specific [place] (1.000-1.030) Urine Protein (Negative) Urine Glucose (UA) (Negative) Urine Ketones (Negative) Urine Blood (Negative) Urine Nitrite (Negative) Urine Bilirubin (Negative) Urine Urobilinogen (Negative) Ur Leukocyte Esterase (Negative) Urine WBC (Auto) (0-5) /hpf Urine RBC (Auto) (0-4) /hpf U Hyaline Cast (Auto) (0-5) /lpf U Epithel Cells (Auto) (0-5) /lpf Urine Bacteria (Auto) (Negative) SARS-CoV-2, RNA, NAAT (NEGATIVE) 07/29/22 07/29/22 07/29/22 Range/Units 05:00 06:40 07:34 WBC (4.8-10.8) K/ul RBC (3.93-5.22) M/uL Hgb (12.0-16.0) g/dl Hct (34.1-44.9) % MCV (80.0-100.0) fL MCH (25.0-34.0) pg MCHC (32.0-36.0) g/dL RDW Std Deviation (36.4-46.3) fL RDW Coeff of Vanesa (11.5-14.5) % Plt Count (130-400) K/uL MPV (9.4-12.3) fL Immature Gran % (Auto) % Neut % (Auto) % Lymph % (Auto) % [place] % (Auto) % Eos % (Auto) % Baso % (Auto) % Neut # (Auto) (1.4-6.5) K/uL Lymph # (Auto) (1.2-3.4) K/uL [place] # (Auto) (0.24-0.82) K/uL Eos # (Auto) (0-0.50) K/uL Baso # (Auto) (0-0.2) K/uL Immature Gran # (Auto) (0.00-0.02) K/uL PT (9.0-12.0) Seconds INR (0.9-1.1) Sodium (136-145) mmol/L Potassium (3.5-5.1) mmol/L Chloride (98-107) mmol/L Carbon Dioxide (21-32) mmol/L Anion Gap (3-11) BUN (6-23) mg/dl Creatinine (0.6-1.2) mg/dl Est Cr Clr Drug Dosing ml/min Est GFR ( Amer) ml/min Est GFR (Non-Af Amer) ml/min BUN/Creatinine Ratio (10-20) Glucose (70-99(Fasting)) mg/dl Calcium (8.5-10.1) mg/dl Magnesium (1.7-2.4) mg/dl Total Bilirubin (0.2-1.0) mg/dl AST (13-39) U/L ALT (7-52) U/L Alkaline Phosphatase (34-104) U/L Troponin I High Sens (0-14) pg/ml Total Protein (6.0-8.3) gm/dl Albumin (3.4-5.0) gm/dl Globulin (2.5-4.0) gm/dl Albumin/Globulin Ratio (0.9-2) TSH 2.657 (0.300-4.500) uIu/ml Urine Color Yellow Urine Appearance Clear (Clear) Urine pH 7.5 (4.5-7.5) Ur Specific [place] 1.008 (1.000-1.030) Urine Protein Negative (Negative) Urine Glucose (UA) Negative (Negative) Urine Ketones Negative (Negative) Urine Blood Negative (Negative) Urine Nitrite Negative (Negative) Urine Bilirubin Negative (Negative) Urine Urobilinogen Negative (Negative) Ur Leukocyte Esterase Trace H (Negative) Urine WBC (Auto) 5-10 H (0-5) /hpf Urine RBC (Auto) 0-4 (0-4) /hpf U Hyaline Cast (Auto) 1-5 (0-5) /lpf U Epithel Cells (Auto) 20-30 H (0-5) /lpf Urine Bacteria (Auto) Negative (Negative) SARS-CoV-2, RNA, NAAT NEGATIVE (NEGATIVE) Imaging Data Attestation: I personally reviewed and interpreted this imaging study as follows: My Impression: Chest: A single view study of the chest was reviewed and was negative for card iomegaly, focal infiltrate, effusion, pulmonary edema, or wide mediastinum. No obvious pneumothorax or rib fracture. Pelvis: No obvious fracture or dislocation Right knee 2 view: Hardware present and intact, no obvious concurrent fracture or dislocation Radiologist's Impression: Knee X-Ray 07/29/22 04:53 XR knee RT 1 or 2V routine CLINICAL HISTORY: trauma COMPARISON: Right knee radiographs May 10, 2022. FINDINGS: Right knee arthroplasty is intact. No periprosthetic fracture is present. Small joint effusion has slightly decreased in size since prior exam. There is no osseous lesion. IMPRESSION: 1. Intact right knee arthroplasty. No fracture. 2. Small right knee joint effusion. ACT 112: Negative or not required by law. Electronically signed by: Umesh Clark M.D. 07/29/2022 7:[address] 07/29/22 04:53 CT OF THE LUMBAR SPINE CLINICAL HISTORY: trauma COMPARISON STUDY: Lumbar spine radiographs July 16, 2022. CT of the abdomen and pelvis July 14, 2022. TECHNIQUE: Helical axial images of the lumbar spine were obtained. Sagittal and coronal reconstructions were viewed. Automated exposure control was utilized for the study. A dose lowering technique was utilized adhering to the principles of ALARA. FINDINGS: Alignment of the lumbar spine is anatomic. There is no acute fracture. There is no osseous lesion. There is severe facet arthrosis. Mild degenerative disc disease is noted at several levels. Central canal and neural foramen are suboptimally assessed by CT. Paravertebral soft tissues are unremarkable. IMPRESSION: No acute lumbar spine fracture or subluxation. ACT 112: Negative or not required by law. Electronically signed by: Umesh Clark M.D. 07/29/2022 7:[address] 07/29/22 04:54 CT OF THE CERVICAL SPINE WITHOUT CONTRAST CLINICAL HISTORY: trauma COMPARISON STUDY: No previous studies for comparison. TECHNIQUE: Helical axial images of the cervical spine were obtained without IV contrast. Sagittal and coronal reconstructions were viewed. Automated exposure control was utilized for the study. A dose lowering technique was utilized adhering to the principles of ALARA. FINDINGS: Alignment of the cervical spine is anatomic. Vertebral body heights are maintained. No acute cervical spine fracture or subluxation is present. There is no prevertebral edema. Facet joints are intact. Moderate multilevel degenerative changes within the cervical spine are present. IMPRESSION: No acute cervical spine fracture or subluxation. ACT 112: Negative or not required by law. Electronically signed by: Umesh Clark M.D. 07/29/2022 7:12 AM Chest X-Ray 07/29/22 04:54 XR chest 1V portable CLINICAL HISTORY: trauma COMPARISON STUDY: Chest radiograph July 14, 2022. FINDINGS: Lung volumes are normal. Lungs are clear. There is no pneumothorax or pleural effusion. Cardiomegaly is unchanged. Mediastinal contours are normal. There is no evidence for pulmonary edema. IMPRESSION: No acute cardiopulmonary findings. ACT 112: Negative or not required by law. Electronically signed by: Umesh Clark M.D. 07/29/2022 7:[address] 07/29/22 04:54 CT head/brain wo con CLINICAL HISTORY: trauma Technique: Contiguous axial CT images of the head were acquired from the base of the skull to the vertex without intravenous contrast administration. Images were viewed in brain, subdural and bone windows. Automated dose lowering techniques and/or adjustment according to patient size were utilized for this exam. Comparison: Comparison is made to CT head 07/14/2022 Findings: The ventricles, basal cisterns, and cerebral sulci are normal. There is no acute intracranial hemorrhage or evidence of acute territorial infarction. Neither mass effect, shift of the midline structures, nor abnormal extra-axial fluid collections are shown. There is a left maxillary mucous retention cyst. The orbits appear normal. There are no acute fractures of the calvaria. Scalp swelling is seen in the right frontal soft tissues. Impression: No acute intracranial hemorrhage or skull fractures. Scalp swelling is seen in the right frontal soft tissues. ACT 112: Negative or not required by law. Electronically signed by: Frank Hung M.D. 07/29/2022 7:06 AM Pelvis X-Ray 07/29/22 04:54 XR pelvis 1-2V routine CLINICAL HISTORY: trauma COMPARISON: CT of the abdomen and pelvis July 14, 2022. FINDINGS: This exam is compromised by suboptimal penetration. However, no acute fracture within the pelvis or hips is identified. Mild joint space narrowing and moderate osteophytosis of the hips is noted. IMPRESSION: No acute fracture within the pelvis or hips. Exam mildly compromised by suboptimal penetration. ACT 112: Negative or not required by law. Electronically signed by: Umesh Clark M.D. 07/29/2022 7:16 AM ECG Data Attestation: I personally reviewed and interpreted this ECG as follows: Indication: + weakness Rate (beats per minute): 72 Rhythm: + normal sinus ECG Intervals/blocks: + Normal QRS and + Normal QT ECG [place]: + Normal ECG ST segments: + Nonspecific ST abnormalities MDM Narrative An order was placed for continuous cardiac monitoring. The monitor shows a rate of _80_ with _normal sinus__ rhythm. This is a 67-year-old female presents emergency department following 2 subsequent falls tonight at home. Patient concern for increased weakness and difficulty walking despite use of a walker. Labs drawn and sent, IV started, and imaging ordered to rule out traumatic injury. Patient is hemodynamically stable and monitored on telemetry throughout. Given patient did appear clinically dehydrated, she was given a small amount of IV fluids. She states she is still taking a diuretic daily. BUN and creatinine resulted and appear el evated compared to prior. Patient denied any recent change in her weight. No overt signs of CHF despite prior history. Patient's H&H stable compared to prior. Mild leukocytosis noted and likely stress to margination, I have a low suspicion for occult infection. Chest x-ray and UA reassuring. CT imaging also reassuring. All results were discussed with the patient at bedside. Patient with mild LFT abnormalities however stable compared to baseline on comparison in EMR. Patient unable to even stand steadily at bedside let alone use a walker to get to the bathroom. Due to concern for unsafe discharge plan given complicated medical history and comorbidities, current symptoms, living alone, case discussed with hospitalist for additional evaluation and management. I did discuss with the patient that following evaluation by hospitalist here, she may also benefit from inpatient rehab until she is able to return home again. Impression & Plan CHI (closed head injury), Fall, Weakness, Ambulatory dysfunction, Contusion of face Discharge Plan Visit Data Chief Complaint: Fall Stated Complaint: Fall x2, Weakness, Cirrhosis ED Provider: Elana Mon Discharge Problem: CHI (closed head injury), Fall, Weakness, Ambulatory dysfunction, Contusion of face Patient Disposition: Admitted As Inpatient Discharge Instructions Interventions: ED Discharge Assessment Last Done: 07/29/22 12:47
[2022-07-29 05:17] LABS: Basophils # (auto) 0.05 K/uL (0-0.2); Basophils % (auto) 0.4 %; Eosinophils # (auto) 0.16 K/uL (0-0.50); Eosinophils % (auto) 1.3 %; Hematocrit (blood only) 45.4 % (34.1-44.9); Hemoglobin 15.8 g/dl (12.0-16.0); Immature Granulocytes # (auto) 0.03 K/uL (0.00-0.02); Immature Granulocytes % (auto) 0.2 %; Lymphocytes % (auto) 17.4 %; Mean Corpuscular Hgb Conc 34.8 g/dL (32.0-36.0); Mean Corpuscular Volume 89.2 fL (80.0-100.0); Mean Platelet Volume 11.2 fL (9.4-12.3); Monocytes # (auto) 1.46 K/uL (0.24-0.82); Monocytes % (auto) 12.1 %; Neutrophils # (auto) 8.27 K/uL (1.4-6.5); Neutrophils % (auto) 68.6 %; Platelet Count 177 K/uL (130-400); RDW Coefficient of Variation 14.3 % (11.5-14.5); RDW Standard Deviation 46.4 fL (36.4-46.3); Red Blood Count 5.09 M/uL (3.93-5.22); White Blood Count 12.07 K/ul (4.8-10.8)
[2022-07-29 05:39] LABS: INR 1.1 (0.9-1.1); Prothrombin Time 12.1 Seconds (9.0-12.0)
[2022-07-29 05:45] LABS: Albumin Globulin Ratio 0.7 (0.9-2); Albumin Level 3.6 gm/dl (3.4-5.0); BUN Creatinine Ratio 24.1 (10-20); Bilirubin,Total 1.6 mg/dl (0.2-1.0); Calcium 10.2 mg/dl (8.5-10.1); Creatinine Clr Calc Pharmacy 51.7 ml/min; Est GFR (African American) 46.1 ml/min; Est GFR (Non-African American) 39.8 ml/min; Globulin 5.1 gm/dl (2.5-4.0); Magnesium 1.7 mg/dl (1.7-2.4); Potassium 3.7 mmol/L (3.5-5.1); Total Protein 8.7 gm/dl (6.0-8.3)
[2022-07-29 05:51] LABS: Troponin I High Sensitivity 13.6 pg/ml (0-14)
[2022-07-29] MEDS ORDERED: SODIUM CHLORIDE 0.9% 250 ML IV ONE (06:57)
--- NOTE | 2022-07-29 07:08 | CT Scan Report ---
CT head/brain wo con CLINICAL HISTORY: trauma Technique: Contiguous axial CT images of the head were acquired from the base of the skull to the abran shimon without intravenous contrast administration. Images were viewed in brain, subdural and [facility]. Automated dose lowering techniques and/or adjustment according to patient size were utilized for this exam. Comparison: Comparison is made to CT head 07/14/2022 Findings: The ventricles, basal cisterns, and cerebral sulci are normal. There is no acute intracranial hemorrh age or evidence of acute territorial infarction. Neither mass effect, shift of the midline structures , nor abnormal extra-axial fluid collections are shown. There is a left maxillary mucous retention cyst. The orbits appear normal. There are no acute fractu res of the calvaria. Scalp swelling is seen in the right frontal soft tissues. Impression: No acute intracranial hemorrhage or skull fractures. Scalp swelling is seen in the right frontal soft tissues. ACT 112: Negative or not required by law. Electronically signed by: Frank Hung M.D. 07/29/2022 7:06 AM
--- NOTE | 2022-07-29 07:13 | CT Scan Report ---
CT OF THE CERVICAL SPINE WITHOUT CONTRAST CLINICAL HISTORY: trauma COMPARISON STUDY: No previous studies for comparison. TECHNIQUE: Helical axial images of the cervical spine were obtained without IV contrast. Sagittal a nd coronal reconstructions were viewed. Automated exposure control was utilized for the study. A do se lowering technique was utilized adhering to the principles of ALARA. FINDINGS: Alignment of the cervical spine is anatomic. Vertebral body heights are maintained. No acut e cervical spine fracture or subluxation is present. There is no prevertebral edema. Facet joints are intact. Moderate multilevel degenerative changes within the cervical spine are present. IMPRESSION: No acute cervical spine fracture or subluxation. ACT 112: Negative or not required by law. Electronically signed by: Umesh Clark M.D. 07/29/2022 7:12 AM
--- NOTE | 2022-07-29 07:14 | XRay Report ---
XR chest 1V portable CLINICAL HISTORY: trauma COMPARISON STUDY: Chest radiograph July 14, 2022. FINDINGS: Lung volumes are normal. Lungs are clear. There is no pneumothorax or pleural effusion. Car diomegaly is unchanged. Mediastinal contours are normal. There is no evidence for pulmonary edema. IMPRESSION: No acute cardiopulmonary findings. ACT 112: Negative or not required by law. Electronically signed by: Umesh Clark M.D. 07/29/2022 7:13 AM
--- NOTE | 2022-07-29 07:16 | XRay Report ---
XR knee RT 1 or 2V routine CLINICAL HISTORY: trauma COMPARISON: Right knee radiographs May 10, 2022. FINDINGS: Right knee arthroplasty is intact. No periprosthetic fracture is present. Small joint effu lisa has slightly decreased in size since prior exam. There is no osseous lesion. IMPRESSION: 1. Intact right knee arthroplasty. No fracture. 2. Small right knee joint effusion. ACT 112: Negative or not required by law. Electronically signed by: Umesh Clark M.D. 07/29/2022 7:14 AM
--- NOTE | 2022-07-29 07:18 | XRay Report ---
XR pelvis 1-2V routine CLINICAL HISTORY: trauma COMPARISON: CT of the abdomen and pelvis July 14, 2022. FINDINGS: This exam is compromised by suboptimal penetration. However, no acute fracture within the pelvis or hips is identified. Mild joint space narrowing and moderate osteophytosis of the hips is no yvrose. IMPRESSION: No acute fracture within the pelvis or hips. Exam mildly compromised by suboptimal penetr ation. ACT 112: Negative or not required by law. Electronically signed by: Umesh Clark M.D. 07/29/2022 7:16 AM
--- NOTE | 2022-07-29 07:22 | CT Scan Report ---
CT OF THE LUMBAR SPINE CLINICAL HISTORY: trauma COMPARISON STUDY: Lumbar spine radiographs July 16, 2022. CT of the abdomen and pelvis July 14, 2022. TECHNIQUE: Helical axial images of the lumbar spine were obtained. Sagittal and coronal reconstruct ions were viewed. Automated exposure control was utilized for the study. A dose lowering technique was utilized adhering to the principles of ALARA. FINDINGS: Alignment of the lumbar spine is anatomic. There is no acute fracture. There is no osseous lesion. There is severe facet arthrosis. Mild degenerative disc disease is noted at several levels. C entral canal and neural foramen are suboptimally assessed by CT. Paravertebral soft tissues are unrem arkable. IMPRESSION: No acute lumbar spine fracture or subluxation. ACT 112: Negative or not required by law. Electronically signed by: Umesh Clark M.D. 07/29/2022 7:20 AM
--- NOTE | 2022-07-29 07:40 | History & Physical Report ---
Date of Service July 29, 2022 Assessment & Plan (1) Weakness: Plan: - Suspect multifactorial due to oral intake due to nausea associated with lactulose, as well as reduced lactulose frequency with lack of BM in 3-4 days. Also probably deconditioned from previous admission, obesity making mobility an issue. - Currently no evidence of infection or injury to cause weakness, specifically low concern for SBP given there is no ascites on exam, she is not encephalop athic. Ammonia 60. UA without evidence of infection. No abdominal pain. - We will gradually try to increase her lactulose back from twice daily to 3 times daily along with continuing her rifaximin. We will also try to utilize IV antiemetics and have dietitian see her regarding her poor nutrition. - PT/OT to evaluate and treat while admitted. Suspect patient may need inpatient rehab and then more regular home health services scheduled to assist with her day-to-day activities. - Received 250 cc IVF bolus in ED, will continue very gentle IVF for 1 more liter, but need to be cautious of causing volume overload. (2) Cirrhosis: Plan: - ZAPIEN cirrhosis, MELD 16 - Follows with [facility]. - No BM in 3-4 days. - Continue lactulose three times daily ( has been taking BID) with rifaximin. Titrate lactulose for 35 BMs/day. - Patient is having difficulty with her lactulose regimen due to nausea. Hopefully will be able to control nausea with antiemetics enough for patient to be able to tolerate lactulose to have at least 3 bowel movements a day. - Ammonia 60, patient is alert and oriented x3, no lab or clinical evidence to support hepatic encephalopathy at this time. - Continue nadolol. (3) Contusion of face: Plan: - Right contusion, swelling URI. CT head without any evidence of fracture or other acute process. - Low-dose Tylenol, ice packs as requested by patient for pain control. (4) Chronic diastolic heart failure: Plan: - Admitted in April for volume overload, is prescribed torsemide and spironolactone daily. - Given her increased creatinine, which I think is due to dehydration given her nausea and poor po intake, will hold torsemide and spironolactone for 1 or 2 days, with reinitiation on discharge or with improved renal function and adequate oral intake. - Echo 05/10: LV SF normal, grade 1 diastolic dysfunction with abnormal relaxation pattern, RVSP normal, no significant valvular heart disease. - We will receive very gentle IVF initially on admission, monitor renal function as well as volume status. 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 - BSG on arrival 203. - SSI basal/bolus insulin ordered. - A1c 6.5% 07/15 (6) Depression: Plan: - Continue Cymbalta and Zoloft. (7) GARRETT on CPAP: Plan: - CPAP ordered HS. (8) HTN (hypertension): Plan: - Continue lisinopril, nadolol. (9) HLD (hyperlipidemia): Plan: - Statin and ezetimibe currently on hold by PCP. Plan - Admit to med/surg. - SCDs, Lovenox for VTE PPx. - Full code. History of Present Illness Chief Complaint: Weakness, 2 falls at home overnight Primary Care Provider: Alana Peres MD Indu Carbone is a 67-year-old female with a past medical history significant for ZAPIEN cirrhosis, diastolic heart failure, CKD, DM2, hypertension, hyperlipidemia, and GARRETT who is presenting today from home for recurrent falls. Patient was recently admitted 07/14-07/17 with hepatic encephalopathy. Since discharge she has had difficulty with p.o. intake due to nausea from her lactulose therefore has become very weak and unsteady on her feet. Last night she had 2 falls while walking to the bathroom with her walker when she reports her legs gave out on her. Both times, she was unable to get herself up. EMS was summoned, and on the second fall they brought her to the hospital for further evaluation. She has been taking her lactulose twice daily, and admits she has not had a bowel movement in 3-4 days, however previously while taking it 3 times a day was having significant diarrhea that she could not keep up with, so she reduced the dose to twice daily. She will if she does not have any bowel movements because she is barely eating anything. She has been compliant with her rifaximin. She does note that she is severely nauseated with her lactulose and that it often does not stay down. She feels too weak to be at home, currently she has PT that comes once weekly otherwise is no help or assistance at home. Patient anxious to find solutions to her weakness/assistance with care in her home so that she can avoid admissions for such in the future. On exam she is complaining of fatigue, weakness, neck pain and bilateral leg cramps. Denies any chest pain, palpitations, or syncope preceding fall. Has not had any fever, chills, abdominal pain, confusion, or urinary symptoms. On presentation, her vital signs are within normal limits and stable. Labs remarkable for WBC of 12, creatinine 1.37 (baseline 0.71.0), T bili 1.6 and AST 63 (baseline). Glucose elevated at 203. UA contaminated with 2030 epithelial cells, with trace leukoesterase and WBCs. COVID-negative. Imaging including pelvis x-ray, head CT, CXR, C-spine CT, lumbar spine CT, and the x-ray all largely unremarkable, there is comment of a small right knee joint effusion, scalp swelling seen on head CT. Allergies Allergy/AdvReac Type Severity Reaction Status Date / Time ciprofloxacin Allergy Intermediate MOUTH Verified 07/29/22 11:27 BLISTERS, HIVES morphine Allergy Intermediate HIVES, Verified 07/29/22 11:27 "DEATHLY ILL", THROWS UP oxycodone Allergy Intermediate HIVES, Verified 07/29/22 11:27 VOMITING penicillin V Allergy Intermediate HIVES Verified 07/29/22 11:27 Home Medications Medication Instructions Recorded Confirmed Type nitroglycerin 0.4 mg sublingual 0.4 mg sublingual UD PRN Chest Pain 10/10/18 07/29/22 History tablet (Nitrostat) rosuvastatin 40 mg tablet 40 mg PO .HS UD 10/10/18 07/29/22 History lancets (OneTouch UltraSoft #100 ea 04/05/20 07/29/22 History Lancets) flash glucose scanning reader #1 ea 06/05/20 07/29/22 Rx (FreeStyle Courtney 2 [place]) BD Ultra-Fine Mini Pen Needle 31 #300 ea 10/30/20 07/29/22 Rx gauge x 3/16" (pen needle, diabetic) lisinopril 2.5 mg tablet 2.5 mg PO .QAM UD 10/11/21 07/29/22 History nadolol 20 mg tablet 10 mg PO QAM 10/11/21 07/29/22 History albuterol sulfate 90 mcg/actuation 2 puff inhalation Q4 PRN Shortness 12/20/21 07/29/22 Rx aerosol inhaler (ProAir HFA) Of Breath Or Wheezing #8.5 grams potassium chloride 10 mEq 10 meq PO 3XWK 03/26/22 07/29/22 History tablet,extended release spironolactone 100 mg tablet 100 mg PO DAILY 03/26/22 07/29/22 History Shower Chair #1 ea 03/28/22 07/29/22 Rx omeprazole 40 mg capsule,delayed 40 mg PO QAM #90 caps 04/21/22 07/29/22 Rx release duloxetine 60 mg capsule,delayed 60 mg PO HS 05/10/22 07/29/22 History release ezetimibe 10 mg tablet 10 mg PO .DAILY UD 05/10/22 07/29/22 History cranberry fruit 450 mg tablet 450 mg PO DAILY 05/16/22 07/29/22 History (cranberry) insulin regular hum U-500 conc 500 See Rx Instructions .Route .COMPLEX 05/16/22 07/29/22 History unit/mL(3 mL) subcut pen (Humulin R U-500 (Conc) Insulin Kwikpen) magnesium hydroxide 400 mg/5 mL 60 ml PO DAILY PRN constipation 05/20/22 07/29/22 Rx oral suspension (Milk of Magnesia) #355 mL torsemide 40 mg tablet 40 mg PO QAM #90 tabs 06/10/22 07/29/22 Rx sertraline 50 mg tablet (Zoloft) 50 mg PO DAILY 06/27/22 07/29/22 History blood sugar diagnostic #100 ea 07/01/22 07/29/22 Rx flash glucose sensor (FreeStyle #2 ea 07/01/22 07/29/22 Rx Courtney 2 Sensor kit) ondansetron 4 mg disintegrating 4 mg PO Q8 PRN Nausea 07/14/22 07/29/22 History tablet lactulose 20 gram oral packet 20 g PO BID 30 days #30 ea 07/17/22 07/29/22 Rx rifaximin 550 mg tablet (Xifaxan) 550 mg PO BID 30 days #60 tabs 07/17/22 07/29/22 Rx miscellaneous medical supply #1 ea 07/25/22 07/29/22 Rx diclofenac sodium 1 % topical gel 2 g topical QID #100 grams 07/28/22 07/29/22 Rx (Voltaren Arthritis Pain) Past Med/Surg History Medical History Acute alteration in mental status Acute metabolic encephalopathy Cancer UTERINE CANCER SKIN CANCER Cardiac murmur Chronic kidney disease STAGE 3-4? F/U PCP Congestive heart failure Constipation Diffuse myofascial pain syndrome Diverticular disease DM2 (diabetes mellitus, type 2) IDDM Fall Fatty liver PER PT ROME (generalized anxiety disorder) Gastroparesis GERD (gastroesophageal reflux disease) History of anesthesia reaction difficulty waking History of COVID-19 09/2020 @ [facility]--headache/diarrhea--no issues now HLD (hyperlipidemia) HTN (hypertension) Hx MRSA infection Hypokalemia IBS (irritable bowel syndrome) Migraine Morbid obesity with BMI of 45.0-49.9, adult Nausea and vomiting after administration of anesthetic agent Occasional tremors AT NIGHT GARRETT on CPAP Osteoarthritis Serum ammonia increased Surgical History Cancer MELANOMA SIDE LEFT FACE-EXCISION H/O esophagogastroduodenoscopy H/O eye surgery LASER RT/LEFT FOR HIGH PRESSURE History of appendectomy History of bladder surgery BLADDER TACK History of colonoscopy History of left heart catheterization (LHC) "normal 2001" History of tooth extraction History of total knee replacement RIGHT S/P cholecystectomy S/P [facility]BS[facility] 1983 Family History Father Diabetes Sister Ovarian cancer Family history of diabetes mellitus Sister Family history of diabetes mellitus Mother Breast cancer Family history of reaction to anesthesia slow to wake--n/v Grandmother (Maternal) Myocardial infarction Uncle Prostate cancer Other Cancer Gallbladder disease Heart disease Hypertension Lung disease Denies family history of Colon cancer Social History Smoking Status: Never smoker Second Hand Exposure: No; Do You Dip or Chew Tobacco: No; Tobacco Cessation Education Requested by Patient: No Hx Alcohol Use: No Hx Substance Use: No Preferred Language: Mosotho Communication Ability: Effective Visual Impairment: No Limitations Hearing Ability: Normal Cementer Hand Required: No Beliefs That Will Affect Care: None marital status: Current Living Situation: Alone Current Living Situation Comment: roommate at independent living facility current occupational status: retired 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 Other Information That Helps Us Care for You: No Feels Safe at Home: Yes Safety Concerns: Feels Safe At This Time Childhood Exposure to Second-Hand Smoke: Yes Dental Care, Regularly: Yes Physical Activity Frequency: 3-4 Times per Week Seatbelt Use: always Sunscreen Use: Yes Assistive Devices: Raised Toilet Seat, Scooter/Electric Scooter and Walker Assistive Devices Comment: shower chair Review of Systems Review of Systems: Constitutional: Generalized weakness, fatigue x1 week; no fever/chills, myalgias, anorexia, night sweats Eyes: No diplopia, no worsening or blurred vision ENT: normal hearing, no trouble swallowing Respiratory: No cough, sputum, dyspnea at rest or on exertion Cardiovascular: No chest pain, tightness or palpitations Abdomen: Nausea following lactulose administration, no BM x3-4 days, previously with uncontrolled diarrhea; without no pain, vomiting : Denies dysuria, hematuria, increased urgency/frequency, urinary retention Musculoskeletal: No joint pain, calf pain, swelling Neurologic: No weakness, numbness/tingling, or balance problems Psychiatric: No anxiety or depression Skin: No rash or itch Physical Exam Physical Exam: General: awake, alert, no apparent distress Head: Normocephalic, atraumatic ENT: PERRL, EOMI, no pharyngeal exudate, mucous membranes moist Chest: Clear to auscultation, on room air, no adventitious breath sounds Cardiac: Regular rate and rhythm, no murmur, no JVD, normal peripheral pulses, good capillary refill Abdominal: NABS x 4 quadrants, soft, nontender to palpation, no rebound, guarding or tenderness Extremities: Normal inspection, no peripheral edema or erythema, calfs non tender to palpation Psych: Normal mood and affect Neuro: AAO x 3, strength intact bilaterally and rated 5/5, no motor deficits, speech is clear, no peripheral sensory deficits Skin: no rash or erythema Results & Data Results & Data ([facility]) Vital Signs (Past 12 Hours) Vital Signs Temp Pulse Pulse Resp BP BP Pulse Ox 07/29/22 07:36 70 22 123/58 L 95 07/29/22 04:54 37 C 76 16 117/55 L 99 07/29/22 04:54 37 C 72 16 117/55 L 98 O2 Del Method 07/29/22 07:36 Room Air 07/29/22 04:54 Room Air 07/29/22 04:54 Room Air Laboratory Results Abnormal lab results 07/29/22 07/29/22 07/29/22 Range/Units 05:00 05:00 05:00 WBC 12.07 H (4.8-10.8) K/ul Hct 45.4 H (34.1-44.9) % RDW Std Deviation 46.4 H (36.4-46.3) fL Neut # (Auto) 8.27 H (1.4-6.5) K/uL [place]cock # (Auto) 1.46 H (0.24-0.82) K/uL Immature Gran # (Auto) 0.03 H (0.00-0.02) K/uL PT 12.1 H (9.0-12.0) Seconds Sodium 135 L (136-145) mmol/L Chloride 91 L (98-107) mmol/L Carbon Dioxide 33 H (21-32) mmol/L BUN 33 H (6-23) mg/dl Creatinine 1.37 H (0.6-1.2) mg/dl BUN/Creatinine Ratio 24.1 H (10-20) Glucose 203 H (70-99(Fasting)) mg/dl Calcium 10.2 H (8.5-10.1) mg/dl Total Bilirubin 1.6 H (0.2-1.0) mg/dl AST 63 H (13-39) U/L Total Protein 8.7 H (6.0-8.3) gm/dl Globulin 5.1 H (2.5-4.0) gm/dl Albumin/Globulin Ratio 0.7 L (0.9-2) Ur Leukocyte Esterase (Negative) Urine WBC (Auto) (0-5) /hpf U Epithel Cells (Auto) (0-5) /lpf 07/29/22 Range/Units 07:34 WBC (4.8-10.8) K/ul Hct (34.1-44.9) % RDW Std Deviation (36.4-46.3) fL Neut # (Auto) (1.4-6.5) K/uL [place] # (Auto) (0.24-0.82) K/uL Immature Gran # (Auto) (0.00-0.02) K/uL PT (9.0-12.0) Seconds Sodium (136-145) mmol/L Chloride (98-107) mmol/L Carbon Dioxide (21-32) mmol/L BUN (6-23) mg/dl Creatinine (0.6-1.2) mg/dl BUN/Creatinine Ratio (10-20) Glucose (70-99(Fasting)) mg/dl Calcium (8.5-10.1) mg/dl Total Bilirubin (0.2-1.0) mg/dl AST (13-39) U/L Total Protein (6.0-8.3) gm/dl Globulin (2.5-4.0) gm/dl Albumin/Globulin Ratio (0.9-2) Ur Leukocyte Esterase Trace H (Negative) Urine WBC (Auto) 5-10 H (0-5) /hpf U Epithel Cells (Auto) 20-30 H (0-5) /lpf Diagnostic Findings Knee X-Ray 07/29/22 04:53 XR knee RT 1 or 2V routine CLINICAL HISTORY: trauma COMPARISON: Right knee radiographs May 10, 2022. FINDINGS: Right knee arthroplasty is intact. No periprosthetic fracture is present. Small joint effusion has slightly decreased in size since prior exam. There is no osseous lesion. IMPRESSION: 1. Intact right knee arthroplasty. No fracture. 2. Small right knee joint effusion. ACT 112: Negative or not required by law. Electronically signed by: Umesh Clark M.D. 07/29/2022 7:[address] 07/29/22 04:53 CT OF THE LUMBAR SPINE CLINICAL HISTORY: trauma COMPARISON STUDY: Lumbar spine radiographs July 16, 2022. CT of the abdomen and pelvis July 14, 2022. TECHNIQUE: Helical axial images of the lumbar spine were obtained. Sagittal and coronal reconstructions were viewed. Automated exposure control was utilized for the study. A dose lowering technique was utilized adhering to the principles of ALARA. FINDINGS: Alignment of the lumbar spine is anatomic. There is no acute fracture. There is no osseous lesion. There is severe facet arthrosis. Mild degenerative disc disease is noted at several levels. Central canal and neural foramen are suboptimally assessed by CT. Paravertebral soft tissues are unremarkable. IMPRESSION: No acute lumbar spine fracture or subluxation. ACT 112: Negative or not required by law. Electronically signed by: Umesh Clark M.D. 07/29/2022 7:[address] 07/29/22 04:54 CT OF THE CERVICAL SPINE WITHOUT CONTRAST CLINICAL HISTORY: trauma COMPARISON STUDY: No previous studies for comparison. TECHNIQUE: Helical axial images of the cervical spine were obtained without IV contrast. Sagittal and coronal reconstructions were viewed. Automated exposure control was utilized for the study. A dose lowering technique was utilized adhering to the principles of ALARA. FINDINGS: Alignment of the cervical spine is anatomic. Vertebral body heights are maintained. No acute cervical spine fracture or subluxation is present. There is no prevertebral edema. Facet joints are intact. Moderate multilevel degenerative changes within the cervical spine are present. IMPRESSION: No acute cervical spine fracture or subluxation. ACT 112: Negative or not required by law. Electronically signed by: Umesh Clark M.D. 07/29/2022 7:12 AM Chest X-Ray 07/29/22 04:54 XR chest 1V portable CLINICAL HISTORY: trauma COMPARISON STUDY: Chest radiograph July 14, 2022. FINDINGS: Lung volumes are normal. Lungs are clear. There is no pneumothorax or pleural effusion. Cardiomegaly is unchanged. Mediastinal contours are normal. There is no evidence for pulmonary edema. IMPRESSION: No acute cardiopulmonary findings. ACT 112: Negative or not required by law. Electronically signed by: Umesh Clark M.D. 07/29/2022 7:[address] 07/29/22 04:54 CT head/brain wo con CLINICAL HISTORY: trauma Technique: Contiguous axial CT images of the head were acquired from the base of the skull to the vertex without intravenous contrast administration. Images were viewed in brain, subdural and bone windows. Automated dose lowering techniques and/or adjustment according to patient size were utilized for this exam. Comparison: Comparison is made to CT head 07/14/2022 Findings: The ventricles, basal cisterns, and cerebral sulci are normal. There is no acute intracranial hemorrhage or evidence of acute territorial infarction. Neither mass effect, shift of the midline structures, nor abnormal extra-axial fluid collections are shown. There is a left maxillary mucous retention cyst. The orbits appear normal. There are no acute fractures of the calvaria. Scalp swelling is seen in the right frontal soft tissues. Impression: No acute intracranial hemorrhage or skull fractures. Scalp swelling is seen in the right frontal soft tissues. ACT 112: Negative or not required by law. Electronically signed by: Frank Hung M.D. 07/29/2022 7:06 AM Pelvis X-Ray 07/29/22 04:54 XR pelvis 1-2V routine CLINICAL HISTORY: trauma COMPARISON: CT of the abdomen and pelvis July 14, 2022. FINDINGS: This exam is compromised by suboptimal penetration. However, no acute fracture within the pelvis or hips is identified. Mild joint space narrowing and moderate osteophytosis of the hips is noted. IMPRESSION: No acute fracture within the pelvis or hips. Exam mildly compromised by suboptimal penetration. ACT 112: Negative or not required by law. Electronically signed by: Umesh Clark M.D. 07/29/2022 7:16 AM ECG Additional Comments: Normal sinus rhythm Nondiagnostic lateral Q waves Abnormal ECG When compared with ECG of 14-JUL-2022 19:29, No significant change was found Confirmed by Mahin Chavez ([id number]) on 07/29/2022 8:09:53 AM Code Status & VTE Plan Code Status Full Code. Supervising Physician Co-Signing Physician Notes Patient was seen and examined independently I discussed the case with Mehdi OLIVO I reviewed pertinent past medical social family history and also the plan of care and agree with the plan of care. Patient comes in with falls with dehydration. Patient was discharged from our facility on 17 July after admission for encephalopathy due to Zapien reportedly the lactulose makes her nauseous and she was unable to eat and drink keep up with fluid intake. In the ER there is no other cause of metabolic encephalopathy at this present time. Intake ammonia was 60 will provide supportive care restart lactulose at lower dose and consideration of alternative means to keep her ammonia down Examination is awake alert appropriate she is fatigued she is a contusion to her right eyebrow Any exceptions will be noted below PG Care Time/CCT Total # of Minutes Spent Total Time Spent with Patient: Total time spent is greater than 50% in coordination of care (as documented) at patient's floor/unit and/or counseling patient: Coding Level of Care Code 86318 INT INP/OBS CARE 2/55MIN Diagnoses Weakness R53.1 Cirrhosis K74.60 Contusion of face S00.83XA Chronic diastolic heart failure I50.32 DM2 (diabetes mellitus, type 2) E11.9 Depression F32.9 GARRETT on CPAP G47.33; Z99.89 HTN (hypertension) I10 HLD (hyperlipidemia) E78.5
[2022-07-29 07:49] LABS: Appearance Urine Clear (Clear); Bacteria Urine Automated Negative (Negative); Bilirubin Urine Negative (Negative); Blood Urine Negative (Negative); Color Urine Yellow; Epithelial Cell Urine Auto 20-30 /lpf (0-5); Glucose Urine UA Negative (Negative); Ketones Urine Negative (Negative); Leukocyte Esterase Urine Trace (Negative); Nitrite Urine Negative (Negative); Protein Urine Negative (Negative); RBC Urine Automated 0-4 /hpf (0-4); Specific Gravity Urine 1.008 (1.000-1.030); Urobilinogen Urine Negative (Negative); pH Urine 7.5 (4.5-7.5)
--- NOTE | 2022-07-29 08:10 | Electrocardiogram Report ---
Test Reason : Blood Pressure : / mmHG Vent. Rate : 072 BPM Atrial Rate : 072 BPM P-R Int : 150 ms QRS Dur : 116 ms QT Int : 426 ms P-R-T Axes : 039 005 047 degrees QTc Int : 466 ms Normal sinus rhythm Nondiagnostic lateral Q waves Abnormal ECG When compared with ECG of 14-JUL-2022 19:29, No significant change was found Confirmed by Mahin Chavez ([id number]) on 07/29/2022 8:09:53 AM Referred By: REFERRED SELF Confirmed By:Mahin Chavez
[2022-07-29] MEDS ORDERED: LACTATED RINGER'S 1,000 ML IV SCH (12:46)
[2022-07-29] MEDS ORDERED: GLUCOSE 10 TAB/TUBE PO PRN ×3 (12:46→13:45)
[2022-07-29] MEDS ORDERED: CARBOHYDRATES FOR HYPOGLYCEMIA PO PRN ×3 (12:46→13:45)
[2022-07-29] MEDS ORDERED: GLUCAGON FOR INJ 1 MG VIAL SQ PRN ×2 (12:46)
[2022-07-29] MEDS ORDERED: NITROGLYCERIN SL 0.4 MG/TAB TAB SL PRN (12:46)
[2022-07-29] MEDS ORDERED: GLUCOSE 40% GEL 15 GM TUBE PO PRN ×3 (12:46→13:45)
[2022-07-29] MEDS ORDERED: DEXTROSE 50% 50 ML SYRINGE IV PRN ×3 (12:46→13:45)
[2022-07-29] MEDS ORDERED: POLYETHYLENE (MIRALAX) 17 GM PACK PO PRN (12:46)
[2022-07-29] MEDS ORDERED: ONDANSETRON INJ 2 MG/ML 2 ML VIAL IV PRN (12:46)
[2022-07-29] MEDS ORDERED: PHARMACY GLYCEMIC MGMT CONSULT PRN (12:46)
[2022-07-29] MEDS ORDERED: MAGNESIUM HYDROXIDE SUSP 30 ML UDC PO PRN (12:46)
[2022-07-29] MEDS ORDERED: ALBUTEROL HFA 8 GM INHALER INH PRN (12:46)
[2022-07-29] MEDS ORDERED: LANTUS PER UNIT CHARGE SQ ONE (13:30)
[2022-07-29] MEDS ORDERED: GLUCAGON FOR INJ 1 MG VIAL IM PRN (13:45)
--- NOTE | 2022-07-29 14:39 | Pharmacy Report ---
Pharmacy Glycemic Short Note 2 - Date of Service July 29, 2022 - Glycemic Short BSG Results (Last 24 hours): 07/29/22 07/29/22 05:00 12:44 Glucose 203 H POC Glucose 260 H OUTPATIENT ANTIDIABETIC REGIMEN: * Insulin Regular u-500: 140 units SQ in the morning, 10 units in the evening ASSESSMENT: * ALEX is a 67 year old female patient with type 2 diabetes [address] to the [facility] emergency department due recurrent falls and complaints of weakness. * Pharmacy had recently been consulted to manage the glycemic control of this patient in their previous admissions, most recently on 05/10/22 and 07/14/22. * During the 05/10/22 admission, the patient was managed with NPH at a ~50% dose reduction of their home regimen (65 units QAM, 10 units QPM). This was initially selected due to similar pharmacokinetic profile as u-500 insulin, and was continued throughout this admission due to demonstrated efficacy in achieving goal-driven blood glucose values. * Correction factor of 15 units/mg/dL and a carb ratio of 4 units per gram of carbohydrate is validated both by efficacy and safety during this previous admission, and as a calculated bolus regimen with a stress factor of 1. * Prior to consulting pharmacy, lab-drawn BSG this morning was recorded as 203 mg/dL, and POC testing at 1244 was 260 mg/dL. Nursing was contacted to confirm that the patient did not administer their morning 140u dose of regular insulin at home prior to admission. * Although NPH may be a consideration after today for morning administration, a mid-day administration time may result in complicated values; May be revisited tomorrow in the AM. * Will administer a single dose of Lantus to offer basal coverage for today. PLAN FOR INPATIENT GLYCEMIC CONTROL: * Hold outpatient oral diabetes medications * Basal insulin * Lantus 40units SQ once. * Bolus insulin * NovoLog per scale ACHS or Q6hrs while NPO * Goal Range: Low 110 mg/dL - High 140 mg/dL * Correction Factor: 15 mg/dL/unit * Nutritional / Prandial insulin per carb ratio of 1 unit per 4 grams CHO consumed
[2022-07-29] MEDS: rifAXIMin 550 MG TABLET PO SCH ×2 (14:54→21:47)
[2022-07-29] MEDS: SPIRONOLACTONE 100 MG TAB PO SCH (14:54)
[2022-07-29] MEDS: LACTULOSE SYRUP 20 GM/30 ML UDC PO SCH ×2 (14:54→21:47)
[2022-07-29] MEDS: PANTOprazole 40 MG TAB PO SCH (14:54)
[2022-07-29] MEDS: SERTRALINE HCL 50 MG TABLET PO SCH (14:55)
[2022-07-29] MEDS: nadoloL 40 MG TAB PO SCH (14:55)
[2022-07-29] MEDS: ENOXAPARIN INJ 40 MG/0.4 ML SYR SQ SCH (14:58)
[2022-07-29] MEDS: DICLOFENAC SOD 1% GEL 100 GM TUBE EXT SCH ×4 (15:00→21:47)
[2022-07-29] MEDS: INSULIN ASPART PER UNIT SC SCH ×3 (15:41→21:44)
[2022-07-29] MEDS ORDERED: PNEUMOCOCCAL POLYSACCHARIDES 25 MCG/0.5 ML VIAL/SYR IM ONE (19:19)
[2022-07-29] MEDS: DULoxetine HCL 60 MG CAP PO SCH (21:47)
[2022-07-30] MEDS: ACETAMINOPHEN 325 MG TAB PO PRN ×3 (00:01→10:08)
[2022-07-30] MEDS: LIDOCAINE 5% 1 PATCH TD SCH (03:54)
--- NOTE | 2022-07-30 07:09 | Hospitalist Progress Note ---
Date of Service July 30, 2022 Assessment & Plan (1) Weakness: Plan: - Suspect multifactorial due to oral intake due to nausea associated with lactulose, as well as reduced lactulose frequency with lack of BM in 3-4 days. Also probably deconditioned from previous admission, obesity making mobility an issue. - Currently no evidence of infection or injury to cause weakness, specifically low concern for SBP given there is no ascites on exam, she is not encephalop athic. Ammonia 60. UA without evidence of infection. No abdominal pain. - We will gradually try to increase her lactulose back from twice daily to 3 times daily along with continuing her rifaximin. We will also try to utilize IV antiemetics and have dietitian see her regarding her poor nutrition. - PT/OT to evaluate and treat while admitted. Suspect patient may need inpatient rehab and then more regular home health services scheduled to assist with her day-to-day activities. - additional ivf with potassium ordered family gives history of ALS, lumbar mri 07/30/22 Small focal central disc protrusion at L4-5 without significant central canal narrowing. Mild disc space narrowing at L5-S1. (2) Cirrhosis: Plan: - SMALL cirrhosis, MELD 16 - Follows with [facility]. - No BM in 3-4 days. - Continue lactulose three times daily ( has been taking BID) with rifaximin. Titrate lactulose for 35 BMs/day. - Patient is having difficulty with her lactulose regimen due to nausea. Hopefully will be able to control nausea with antiemetics enough for patient to be able to tolerate lactulose to have at least 3 bowel movements a day. - Ammonia 60, patient is alert and oriented x3, no lab or clinical evidence to support hepatic encephalopathy at this time. - Continue nadolol. (3) Contusion of face: Plan: - Right contusion, swelling URI. CT head without any evidence of fracture or other acute process. - Low-dose Tylenol, ice packs as requested by patient for pain control. (4) Chronic diastolic heart failure: Plan: - prescribed torsemide and spironolactone daily. given dehydration on presentation hold torsemide and spironolactone with reinitiation on discharge or with improved renal function and adequate oral intake. - Echo 05/10: LV SF normal, grade 1 diastolic dysfunction with abnormal relaxation pattern, RVSP normal, no significant valvular heart disease. (5) DM2 (diabetes mellitus, type 2): Plan: - [employer]: Insulin U500 130 units am, 20 units PM, Ozempic. - BSG on arrival 203. - SSI basal/bolus insulin ordered. - A1c 6.5% 07/15 (6) Depression: Plan: - Continue Cymbalta and Zoloft. (7) GARRETT on CPAP: Plan: - CPAP ordered HS. (8) HTN (hypertension): Plan: - Continue lisinopril, nadolol. (9) HLD (hyperlipidemia): Plan: - Statin and ezetimibe currently on hold by PCP. Plan - Admit to med/surg. - SCDs, Lovenox for VTE PPx. - Full code. Admission and Anticipated Discharge Date Admission Date: July 29, 2022 Subjective pt is still very weak, cannot move in bed still had some head pain from fall Review of Systems Review of Systems: Constitutional: Generalized weakness, fatigue x1 week; no fever/chills, myalgias, anorexia, night sweats Eyes: No diplopia, no worsening or blurred vision ENT: normal hearing, no trouble swallowing Respiratory: No cough, sputum, dyspnea at rest or on exertion Cardiovascular: No chest pain, tightness or palpitations Abdomen: Nausea following lactulose administration, no BM x3-4 days, previously with uncontrolled diarrhea; without no pain, vomiting : Denies dysuria, hematuria, increased urgency/frequency, urinary retention Musculoskeletal: No joint pain, calf pain, swelling Neurologic: No weakness, numbness/tingling, or balance problems Psychiatric: No anxiety or depression Skin: No rash or itch Physical Exam Physical Exam: General: awake, alert, no apparent distress Head: Normocephalic, atraumatic ENT: PERRL, EOMI, no pharyngeal exudate, mucous membranes moist Chest: Clear to auscultation, on room air, no adventitious breath sounds Cardiac: Regular rate and rhythm, no murmur, no JVD, normal peripheral pulses, good capillary refill Abdominal: NABS x 4 quadrants, soft, nontender to palpation, no rebound, guarding or tenderness Extremities: Normal inspection, no peripheral edema or erythema, calfs nontender to palpation Psych: Normal mood and affect Neuro: AAO x 3, strength intact bilaterally and rated 5/5, no motor deficits, speech is clear, no peripheral sensory deficits Skin: no rash or erythema Results & Data Results & Data ([facility]) Vital Signs (Past 12 Hours) Vital Signs Temp Pulse Pulse Pulse Resp BP BP 07/30/22 07:06 97.9 F 72 16 115/65 07/30/22 01:45 97.9 F 70 18 112/62 07/30/22 00:42 98.1 F 70 16 96/56 L 07/29/22 19:25 07/29/22 23:24 64 21 07/29/22 21:29 98.1 F 67 18 96/59 L Pulse Ox O2 Del Method 07/30/22 07:06 95 Room Air 07/30/22 01:45 94 Room Air 07/30/22 00:42 94 Room Air 07/29/22 19:25 Room Air 07/29/22 23:24 95 07/29/22 21:29 91 Room Air PG Care Time/CCT Total # of Minutes Spent Total Time Spent with Patient: Total time spent is greater than 50% in coordination of care (as documented) at patient's floor/unit and/or counseling patient: Coding Level of Care Code 72505 SUB INP/OBS CARE 2/35MIN Diagnoses Weakness R53.1 Cirrhosis K74.60 Contusion of face S00.83XA Chronic diastolic heart failure I50.32 DM2 (diabetes mellitus, type 2) E11.9 Depression F32.9 GARRETT on CPAP G47.33; Z99.89 HTN (hypertension) I10 HLD (hyperlipidemia) E78.5
[2022-07-30 07:27] LABS: Basophils # (auto) 0.06 K/uL (0-0.2); Basophils % (auto) 0.6 %; Eosinophils # (auto) 0.22 K/uL (0-0.50); Hemoglobin 13.5 g/dl (12.0-16.0); Immature Granulocytes # (auto) 0.02 K/uL (0.00-0.02); Immature Granulocytes % (auto) 0.2 %; Lymphocytes # (auto) 2.94 K/uL (1.2-3.4); Mean Corpuscular Hemoglobin 30.9 pg (25.0-34.0); Mean Corpuscular Hgb Conc 35.5 g/dL (32.0-36.0); Mean Platelet Volume 11.6 fL (9.4-12.3); Monocytes # (auto) 1.83 K/uL (0.24-0.82); Monocytes % (auto) 16.8 %; Neutrophils % (auto) 53.4 %; Platelet Count 148 K/uL (130-400); RDW Coefficient of Variation 14.4 % (11.5-14.5); RDW Standard Deviation 45.7 fL (36.4-46.3); Red Blood Count 4.37 M/uL (3.93-5.22); White Blood Count 10.87 K/ul (4.8-10.8)
[2022-07-30] MEDS ORDERED: LORazepam 2 MG/1 ML VIAL IV STA (08:01)
[2022-07-30 08:25] LABS: Albumin Globulin Ratio 0.8 (0.9-2); BUN Creatinine Ratio 27.7 (10-20); Bilirubin,Total 1.6 mg/dl (0.2-1.0); Calcium 9.6 mg/dl (8.5-10.1); Creatinine Clr Calc Pharmacy 50.2 ml/min; Est GFR (African American) 44.6 ml/min; Est GFR (Non-African American) 38.5 ml/min; Globulin 3.8 gm/dl (2.5-4.0); Magnesium 1.8 mg/dl (1.7-2.4); Potassium 3.3 mmol/L (3.5-5.1); Total Protein 6.8 gm/dl (6.0-8.3)
[2022-07-30] MEDS: rifAXIMin 550 MG TABLET PO SCH ×2 (08:32→21:11)
[2022-07-30] MEDS: SPIRONOLACTONE 100 MG TAB PO SCH (08:32)
[2022-07-30] MEDS: SERTRALINE HCL 50 MG TABLET PO SCH (08:33)
[2022-07-30] MEDS: nadoloL 40 MG TAB PO SCH (08:41)
[2022-07-30] MEDS ORDERED: POTASSIUM CHLORIDE 10 MEQ TABCR PO SCH (09:00)
[2022-07-30] MEDS ORDERED: INSULIN HUMAN NPH SC SCH ×2 (09:00→17:00)
[2022-07-30] MEDS: INSULIN ASPART PER UNIT SC SCH ×4 (10:38→21:19)
--- NOTE | 2022-07-30 10:40 | Pharmacy Report ---
Pharmacy Glycemic Short Note 2 - Date of Service July 30, 2022 - Glycemic Short BSG Results (Last 24 hours): 07/29/22 07/29/22 07/29/22 12:44 15:36 18:18 Glucose POC Glucose 260 H 289 H 268 H 07/29/22 07/30/22 07/30/22 20:34 06:52 07:53 Glucose 190 H POC Glucose 256 H 180 H OUTPATIENT ANTIDIABETIC REGIMEN: * Insulin Regular u-500: 140 units SQ in the morning, 10 units in the evening ASSESSMENT: 07/30/22: * Fasting BSG today of 180 mg/dL. Started the patient on 60 units of NPH in the morning as rationalized in 07/29/22 assessment. Will trend sugars today to determine PM dose. * Will maintain current NovoLog parameters due to shift in bolus regimen, will also trend and adjust as appropriate. * No new stressors or change in ordered diet. 07/29/22 (Initial Assessment): * EW is a 67 year old female patient with type 2 diabetes who presented to the [facility] emergency department due recurrent falls and complaints of weakness. * Pharmacy had recently been consulted to manage the glycemic control of this patient in recent previous admissions. * During 05/10/22 admission, the patient was managed with NPH at a ~50% dose reduction of their home regimen (65 units QAM, 10 units QPM), and with NovoLog as correction factor of 15 mg/dL/unit and a carb ratio of 4 gram of carbohydrate per unit. * Prior to consulting pharmacy, lab-drawn BSG this morning was recorded as 203 mg/dL, and POC testing at 1244 was 260 mg/dL. Patient did not take their usual dose of u-500 insulin morning of admission. * Although NPH may be a consideration after today for morning administration, a mid-day administration time may result in complicated values; May be revisited tomorrow in the AM. * Will administer a single dose of Lantus to offer basal coverage for today. PLAN FOR INPATIENT GLYCEMIC CONTROL: * Hold outpatient oral diabetes medications * Basal insulin * NPH 60 units QAM, 10 units with dinner. * Bolus insulin * NovoLog per scale ACHS or Q6hrs while NPO * Goal Range: Low 110 mg/dL - High 140 mg/dL * Correction Factor: 15 mg/dL/unit * Nutritional / Prandial insulin per carb ratio of 1 unit per 4 grams CHO consumed
--- NOTE | 2022-07-30 11:37 | Magnetic Resonance Report ---
LUMBAR SPINE MRI HISTORY: Lumbar pain. Lower extremity weakness fam hx of ALS TECHNIQUE: Multiplanar multisequence MRI of the lumbar spine was performed without the use of contras t. COMPARISON: Lumbar spine CT 07/29/2022. Abdomen and pelvis CT 07/14/2022. FINDINGS: For the purpose of the report the L5-S1 disc space will be located on axial image 32 of 35. There is mild motion artifact. No fracture or subluxation. Mild disc space narrowing at L5-S1. Remain ing disc spaces are preserved. A 9 mm vertebral body hemangioma at L1. The conus to its at the L1-L2 disc space level. The visualized sacrum is intact. Mild lumbar subcutaneous edema is noted. Moderate to severe facet degenerative changes within the lumbar spine. This is most pronounced at the L3-L4 le elva. Paravertebral soft tissues are unremarkable. The left para-aortic varicosities are again noted. The distal thoracic spinal cord demonstrates a normal signal intensity. L1-L2: No significant central canal or neural foraminal narrowing. L2-L3: No significant central canal or neural foraminal narrowing. L3-L4: Tiny broad-based posterior disc bulge without significant central canal or neural foraminal na rrowing. L4-L5: Broad-based posterior disc bulge with a small focal central disc protrusion measuring 3 mm. Th is does not abut the transiting nerve roots. However, no significant central canal narrowing. There i s mild bilateral neural foraminal narrowing due to the disc bulge and facet hypertrophy. L5-S1: No significant central canal or neural foraminal narrowing. IMPRESSION: 1. Small focal central disc protrusion at L4-5 without significant central canal narrowing. 2. Mild disc space narrowing at L5-S1. 3. Moderate to severe facet degenerative changes as described above. 4. No fracture or subluxation. ACT 112: Negative or not required by law. Electronically signed by: Modesto Toro M.D. 07/30/2022 11:35 AM
[2022-07-30] MEDS: PANTOprazole 40 MG TAB PO SCH (13:25)
[2022-07-30] MEDS: DICLOFENAC SOD 1% GEL 100 GM TUBE EXT SCH ×4 (13:25→21:11)
[2022-07-30] MEDS: LACTULOSE SYRUP 20 GM/30 ML UDC PO SCH ×2 (13:26→21:11)
[2022-07-30] MEDS: ENOXAPARIN INJ 40 MG/0.4 ML SYR SQ SCH (13:27)
[2022-07-30] MEDS ORDERED: POTASSIUM CHLORIDE 40 MEQ in SODIUM CHLORIDE 0.9% 1000ML 1,000 ML IV SCH (14:45)
[2022-07-30] MEDS: DULoxetine HCL 60 MG CAP PO SCH (21:12)
[2022-07-31] MEDS: ACETAMINOPHEN 325 MG TAB PO PRN ×2 (02:53→08:21)
[2022-07-31] MEDS: PANTOprazole 40 MG TAB PO SCH (08:22)
[2022-07-31] MEDS: SPIRONOLACTONE 100 MG TAB PO SCH (08:22)
[2022-07-31] MEDS: nadoloL 40 MG TAB PO SCH (08:22)
[2022-07-31] MEDS: rifAXIMin 550 MG TABLET PO SCH ×2 (08:22→19:57)
[2022-07-31] MEDS: LIDOCAINE 5% 1 PATCH TD SCH (08:24)
[2022-07-31] MEDS: SERTRALINE HCL 50 MG TABLET PO SCH (08:24)
[2022-07-31] MEDS: DICLOFENAC SOD 1% GEL 100 GM TUBE EXT SCH ×4 (08:25→19:56)
--- NOTE | 2022-07-31 09:10 | Pharmacy Report ---
Pharmacy Glycemic Short Note 2 - Date of Service July 31, 2022 - Glycemic Short BSG Results (Last 24 hours): 07/30/22 07/30/22 07/30/22 11:55 11:56 16:53 POC Glucose 324 H* 310 H* 194 H 07/30/22 07/31/22 20:30 07:56 POC Glucose 193 H 207 H OUTPATIENT ANTIDIABETIC REGIMEN: * Insulin Regular u-500: 140 units SQ in the morning, 10 units in the evening ASSESSMENT: 07/31/22: * Patient received total of 113 units of insulin yesterday, of which 70 units were NPH * Fasting BSG 207 mg/dL therefore will increase PM NPH. BSGs throughout the day yesterday in upper 100s - will increase AM NPH slightly * Tighen CR with breakfast as lunch BSGs tend to be elevated 07/30/22: * Fasting BSG today of 180 mg/dL. Started the patient on 60 units of NPH in the morning as rationalized in 07/29/22 assessment. Will trend sugars today to determine PM dose. * Will maintain current NovoLog parameters due to shift in bolus regimen, will also trend and adjust as appropriate. * No new stressors or change in ordered diet. 07/29/22 (Initial Assessment): * EW is a 67 year old female patient with type 2 diabetes who presented to the [facility] emergency department due recurrent falls and complaints of weakness. * Pharmacy had recently been consulted to manage the glycemic control of this patient in recent previous admissions. * During 05/10/22 admission, the patient was managed with NPH at a ~50% dose reduction of their home regimen (65 units QAM, 10 units QPM), and with NovoLog as correction factor of 15 mg/dL/unit and a carb ratio of 4 gram of carbohydrate per unit. * Prior to consulting pharmacy, lab-drawn BSG this morning was recorded as 203 mg/dL, and POC testing at 1244 was 260 mg/dL. Patient did not take their usual dose of u-500 insulin morning of admission. * Although NPH may be a consideration after today for morning administration, a mid-day administration time may result in complicated values; May be revisited tomorrow in the AM. * Will administer a single dose of Lantus to offer basal coverage for today. PLAN FOR INPATIENT GLYCEMIC CONTROL: * Hold outpatient oral diabetes medications * Basal insulin - increase * NPH 65 units QAM, 15 units with dinner. * Bolus insulin * NovoLog per scale ACHS or Q6hrs while NPO * Goal Range: Low 110 mg/dL - High 140 mg/dL * Correction Factor: 15 mg/dL/unit * Nutritional / Prandial insulin per carb ratio of 1 unit per 3 grams CHO consumed
[2022-07-31] MEDS: INSULIN ASPART PER UNIT SC SCH ×4 (09:29→20:07)
[2022-07-31] MEDS: INSULIN HUMAN NPH SC SCH ×2 (09:33→18:10)
[2022-07-31 09:35] LABS: Albumin Globulin Ratio 0.7 (0.9-2); Albumin Level 2.7 gm/dl (3.4-5.0); BUN Creatinine Ratio 33.3 (10-20); Bilirubin,Total 1.4 mg/dl (0.2-1.0); Calcium 9.9 mg/dl (8.5-10.1); Creatinine Clr Calc Pharmacy 54.9 ml/min; Est GFR (African American) 49.6 ml/min; Est GFR (Non-African American) 42.8 ml/min; Globulin 3.8 gm/dl (2.5-4.0); Potassium 3.6 mmol/L (3.5-5.1); Total Protein 6.5 gm/dl (6.0-8.3)
[2022-07-31] MEDS: LACTULOSE SYRUP 20 GM/30 ML UDC PO SCH ×3 (09:38→19:55)
[2022-07-31] MEDS: ENOXAPARIN INJ 40 MG/0.4 ML SYR SQ SCH (13:20)
[2022-07-31] MEDS: DULoxetine HCL 60 MG CAP PO SCH (19:57)
--- NOTE | 2022-07-31 20:20 | Hospitalist Progress Note ---
Date of Service July 31, 2022 Assessment & Plan (1) Weakness: Plan: - Suspect multifactorial due to oral intake due to nausea associated with lactulose, as well as reduced lactulose frequency with lack of BM in 3-4 days. Also probably deconditioned from previous admission, obesity making mobility an issue. - Currently no evidence of infection or injury to cause weakness, specifically low concern for SBP given there is no ascites on exam, she is not encephalop athic. Ammonia 60. UA without evidence of infection. No abdominal pain. - We will gradually try to increase her lactulose back from twice daily to 3 times daily along with continuing her rifaximin. We will also try to utilize IV antiemetics and have dietitian see her regarding her poor nutrition. - PT/OT to evaluate and treat while admitted. Suspect patient may need inpatient rehab and then more regular home health services scheduled to assist with her day-to-day activities. - additional ivf with potassium ordered family gives history of ALS, lumbar mri 07/30/22 Small focal central disc protrusion at L4-5 without significant central canal narrowing. Mild disc space narrowing at L5-S1. Unknown of cause of her weakness. WIll have Neurology weigh in. This may be multifactorial, perhaps hepatic encephalopathy, however, given that her symptoms are mainly in her lower extremities, this appears to be a an atypicla presentation and doesn't quite fit. (2) Cirrhosis: Plan: - SMALL cirrhosis, MELD 16 - Follows with [facility]. - No BM in 3-4 days. - Continue lactulose three times daily ( has been taking BID) with rifaximin. Titrate lactulose for 35 BMs/day. - Patient is having difficulty with her lactulose regimen due to nausea. Hopefully will be able to control nausea with antiemetics enough for patient to be able to tolerate lactulose to have at least 3 bowel movements a day. - Ammonia 60, patient is alert and oriented x3, no lab or clinical evidence to support hepatic encephalopathy at this time. - Continue nadolol. Patient appears to not be tolerating the lactulose. will continue to monitor, already on rifaximin, will increase to TID and monitor (3) Contusion of face: Plan: - Right contusion, swelling URI. CT head without any evidence of fracture or other acute process. - Low-dose Tylenol, ice packs as requested by patient for pain control. (4) Chronic diastolic heart failure: Plan: - prescribed torsemide and spironolactone daily. given dehydration on presentation hold torsemide and spironolactone with reinitiation on discharge or with improved renal function and adequate oral intake. - Echo 05/10: LV SF normal, grade 1 diastolic dysfunction with abnormal relaxation pattern, RVSP normal, no significant valvular heart disease. (5) DM2 (diabetes mellitus, type 2): Plan: - [employer]: Insulin U500 130 units am, 20 units PM, Ozempic. - BSG on arrival 203. - SSI basal/bolus insulin ordered. - A1c 6.5% 07/15 (6) Depression: Plan: - Continue Cymbalta and Zoloft. (7) GARRETT on CPAP: Plan: - CPAP ordered HS. (8) HTN (hypertension): Plan: - Continue lisinopril, nadolol. (9) HLD (hyperlipidemia): Plan: - Statin and ezetimibe currently on hold by PCP. Plan - Admit to med/surg. - SCDs, Lovenox for VTE PPx. - Full code. Admission and Anticipated Discharge Date Admission Date: July 30, 2022 Subjective Patient reports havig nausea from a green medicine she takes at home. She reports it is orange here Review of Systems Review of Systems: All systems reviewed & are unremarkable except as noted in HPI & below Physical Exam Physical Exam: General: awake, alert, no apparent distress Head: Normocephalic, atraumatic ENT: PERRL, EOMI, no pharyngeal exudate, mucous membranes moist Chest: Clear to auscultation, on room air, no adventitious breath sounds Cardiac: Regular rate and rhythm, no murmur, no JVD, normal peripheral pulses, good capillary refill Abdominal: NABS x 4 quadrants, soft, nontender to palpation, no rebound, guard ing or tenderness Extremities: Normal inspection, no peripheral edema or erythema, calfs nontender to palpation Psych: Normal mood and affect Neuro: AAO x 3, strength intact bilaterally and rated 5/5, no motor deficits, speech is clear, no peripheral sensory deficits Skin: no rash or erythema Results & Data Results & Data ([facility]) Vital Signs (Past 12 Hours) Vital Signs Temp Pulse Resp BP Pulse Ox O2 Del Method 07/31/22 15:39 36.6 C 70 16 102/57 L 97 Room Air PG Care Time/CCT Total # of Minutes Spent Total Time Spent with Patient: Total time spent is greater than 50% in coordination of care (as documented) at patient's floor/unit and/or counseling patient: Coding Level of Care Code 51884 SUB INP/OBS CARE 2/35MIN Diagnoses Weakness R53.1 Cirrhosis K74.60 Contusion of face S00.83XA Chronic diastolic heart failure I50.32 DM2 (diabetes mellitus, type 2) E11.9 Depression F32.9 GARRETT on CPAP G47.33; Z99.89 HTN (hypertension) I10 HLD (hyperlipidemia) E78.5
[2022-08-01] MEDS: ACETAMINOPHEN 325 MG TAB PO PRN ×2 (04:59→08:55)
[2022-08-01] MEDS: INSULIN ASPART PER UNIT SC SCH ×4 (08:48→21:49)
[2022-08-01] MEDS: PANTOprazole 40 MG TAB PO SCH (08:50)
[2022-08-01] MEDS: LACTULOSE SYRUP 20 GM/30 ML UDC PO SCH ×3 (08:50→21:49)
[2022-08-01] MEDS: rifAXIMin 550 MG TABLET PO SCH ×2 (08:50→21:48)
[2022-08-01] MEDS: INSULIN HUMAN NPH SC SCH ×2 (08:50→18:10)
[2022-08-01] MEDS: nadoloL 40 MG TAB PO SCH (08:51)
[2022-08-01] MEDS: LIDOCAINE 5% 1 PATCH TD SCH (08:51)
[2022-08-01] MEDS: SPIRONOLACTONE 100 MG TAB PO SCH (08:51)
[2022-08-01] MEDS: DICLOFENAC SOD 1% GEL 100 GM TUBE EXT SCH ×4 (08:52→21:49)
[2022-08-01] MEDS: SERTRALINE HCL 50 MG TABLET PO SCH (08:52)
[2022-08-01 10:20] LABS: Albumin Globulin Ratio 0.8 (0.9-2); BUN Creatinine Ratio 34.9 (10-20); Bilirubin,Total 1.2 mg/dl (0.2-1.0); Calcium 10.4 mg/dl (8.5-10.1); Creatinine Clr Calc Pharmacy 66.8 ml/min; Est GFR (African American) 62.9 ml/min; Est GFR (Non-African American) 54.3 ml/min
--- NOTE | 2022-08-01 11:38 | Neurology Consultation ---
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 Patient may have chronic liver failure associated basal ganglia disease (Non-Wilsonian hepatocerebral degeneration) presenting with atypical parkinsonism. However, patient also has a history of diabetic peripheral neuropathy and may have an element of sensory ataxia. She also endorses generalized muscle pain or myalgia and I am unable to completely exclude the possibility of an acquired myopathy or myositis. Would recommend checking a CK, aldolase, ESR, CRP, RAOUL, anti-Kalyani 1 antibody as we ll as acetylcholine receptor antibodies. Would also check a serum copper and ceruloplasmin patient will need an outpatient for limb EMG with repetitive stimulation. It would not be unreasonable to try Sinemet at this point in time. Would recommend starting with a low-dose, 25/100 mg tablet, 1/2 tablet taken 3 times per day, increase to 1 whole tablet taken 3 times per day after 1 week. History of Present Illness Reason for Consultation: Weakness, gait dysfunction Requesting Physician: Suleman Mcclelland Attending Physician: Suleman Mcclelland History of Present Illness The patient is a 67-year-old female who presented to the emergency department July 29 with a chief complaint of recurrent fall, had fallen earlier that morning while going to the bathroom and struck the right side of her face on the toilet seat. She does have some residual ecchymosis in this area. She indicates that she has been having chronic progressive difficulty with gait and balance for at least the past year. She complains that sometimes it feels as if her legs do not respond, especially the left leg. She endorses occasional action tremor, no resting tremor. She reports a tendency to fall backwards. She also endorses some difficulty with dysphagia. She endorsed occasional nightmares, vivid dreams, and has been told that she may talk or move around in her sleep. She has a history of sleep apnea, on CPAP as well. History also notable for diabetic peripheral neuropathy, Zapien cirrhosis with recent admission and discharge from the [facility] this past June for treatment of hepatic encephalopathy. The patient also complains of myalgia or muscle pain, diffuse, but involving the shoulders and hips. She reports this pain has been fairly persistent and does not seem to be affected by physical activity. She denies any ptosis or diplopia. She denies any sami incontinence of urine. She does not have a known history of dementia or progressive cognitive decline. Allergies Allergy/AdvReac Type Severity Reaction Status Date / Time ciprofloxacin Allergy Intermediate MOUTH Verified 07/29/22 11:27 BLISTERS, HIVES morphine Allergy Intermediate HIVES, Verified 07/29/22 11:27 "DEATHLY ILL", THROWS UP oxycodone Allergy Intermediate HIVES, Verified 07/29/22 11:27 VOMITING penicillin V Allergy Intermediate HIVES Verified 07/29/22 11:27 Home Medications Medication Instructions Recorded Confirmed Type nitroglycerin 0.4 mg sublingual 0.4 mg sublingual UD PRN Chest Pain 10/10/18 07/29/22 History tablet (Nitrostat) rosuvastatin 40 mg tablet 40 mg PO .HS UD 10/10/18 07/29/22 History lancets (OneTouch UltraSoft #100 ea 04/05/20 07/29/22 History Lancets) flash glucose scanning reader #1 ea 06/05/20 07/29/22 Rx (FreeStyle Courtney 2 [place]) BD Ultra-Fine Mini Pen Needle 31 #300 ea 10/30/20 07/29/22 Rx gauge x 3/16" (pen needle, diabetic) lisinopril 2.5 mg tablet 2.5 mg PO .QAM UD 10/11/21 07/29/22 History nadolol 20 mg tablet 10 mg PO QAM 10/11/21 07/29/22 History albuterol sulfate 90 mcg/actuation 2 puff inhalation Q4 PRN Shortness 12/20/21 07/29/22 Rx aerosol inhaler (ProAir HFA) Of Breath Or Wheezing #8.5 grams potassium chloride 10 mEq 10 meq PO 3XWK 03/26/22 07/29/22 History tablet,extended release spironolactone 100 mg tablet 100 mg PO DAILY 03/26/22 07/29/22 History Shower Chair #1 ea 03/28/22 07/29/22 Rx omeprazole 40 mg capsule,delayed 40 mg PO QAM #90 caps 04/21/22 07/29/22 Rx release duloxetine 60 mg capsule,delayed 60 mg PO HS 05/10/22 07/29/22 History release ezetimibe 10 mg tablet 10 mg PO .DAILY UD 05/10/22 07/29/22 History cranberry fruit 450 mg tablet 450 mg PO DAILY 05/16/22 07/29/22 History (cranberry) insulin regular hum U-500 conc 500 See Rx Instructions .Route .COMPLEX 05/16/22 07/29/22 History unit/mL(3 mL) subcut pen (Humulin R U-500 (Conc) Insulin Kwikpen) magnesium hydroxide 400 mg/5 mL 60 ml PO DAILY PRN constipation 05/20/22 07/29/22 Rx oral suspension (Milk of Magnesia) #355 mL torsemide 40 mg tablet 40 mg PO QAM #90 tabs 06/10/22 07/29/22 Rx sertraline 50 mg tablet (Zoloft) 50 mg PO DAILY 06/27/22 07/29/22 History blood sugar diagnostic #100 ea 07/01/22 07/29/22 Rx flash glucose sensor (FreeStyle #2 ea 07/01/22 07/29/22 Rx Courtney 2 Sensor kit) ondansetron 4 mg disintegrating 4 mg PO Q8 PRN Nausea 07/14/22 07/29/22 History tablet lactulose 20 gram oral packet 20 g PO BID 30 days #30 ea 07/17/22 07/29/22 Rx rifaximin 550 mg tablet (Xifaxan) 550 mg PO BID 30 days #60 tabs 07/17/22 07/29/22 Rx miscellaneous medical supply #1 ea 07/25/22 07/29/22 Rx diclofenac sodium 1 % topical gel 2 g topical QID #100 grams 07/28/22 07/29/22 Rx (Voltaren Arthritis Pain) Patient History Medical History Acute alteration in mental status Acute metabolic encephalopathy Cancer UTERINE CANCER SKIN CANCER Cardiac murmur Chronic kidney disease STAGE 3-4? F/U PCP Congestive heart failure Constipation Diffuse myofascial pain syndrome Diverticular disease DM2 (diabetes mellitus, type 2) IDDM Fall Fatty liver PER PT ROME (generalized anxiety disorder) Gastroparesis GERD (gastroesophageal reflux disease) History of anesthesia reaction difficulty waking History of COVID-19 09/2020 @ [facility]--headache/diarrhea--no issues now HLD (hyperlipidemia) HTN (hypertension) Hx MRSA infection Hypokalemia IBS (irritable bowel syndrome) Migraine Morbid obesity with BMI of 45.0-49.9, adult Nausea and vomiting after administration of anesthetic agent Occasional tremors AT NIGHT GARRETT on CPAP Osteoarthritis Serum ammonia increased Surgical History Cancer MELANOMA SIDE LEFT FACE-EXCISION H/O esophagogastroduodenoscopy H/O eye surgery LASER RT/LEFT FOR HIGH PRESSURE History of appendectomy History of bladder surgery BLADDER TACK History of colonoscopy History of left heart catheterization (LHC) "normal 2001" History of tooth extraction History of total knee replacement RIGHT S/P cholecystectomy S/P [facility] 1983 Family History Father Diabetes Sister Ovarian cancer Family history of diabetes mellitus Sister Family history of diabetes mellitus Mother Breast cancer Family history of reaction to anesthesia slow to wake--n/v Grandmother (Maternal) Myocardial infarction Uncle Prostate cancer Other Cancer Gallbladder disease Heart disease Hypertension Lung disease Denies family history of Colon cancer Social History Smoking Status: Never smoker Second Hand Exposure: No; Do You Dip or Chew Tobacco: No; Tobacco Cessation Education Requested by Patient: No Hx Alcohol Use: No Hx Substance Use: No Preferred Language: Burmese Communication Ability: Effective Visual Impairment: No Limitations Hearing Ability: Normal Nut Steamer Required: No Beliefs That Will Affect Care: None marital status: Current Living Situation: Alone Current Living Situation Comment: roommate at independent living facility current occupational status: retired 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 [employer] Other Information That Helps Us Care for You: No Feels Safe at Home: Yes Safety Concerns: Feels Safe At This Time Childhood Exposure to Second-Hand Smoke: Yes Dental Care, Regularly: Yes Physical Activity Frequency: 3-4 Times per Week Seatbelt Use: always Sunscreen Use: Yes Assistive Devices: Raised Toilet Seat and Wheelchair Assistive Devices Comment: shower chair Review of Systems Constitutional: as per Subjective / HPI, + fatigue and + weakness; no fever and no chills Eyes: no blind spots and no diplopia Ear, Nose, Mouth, Throat: no hearing loss Respiratory: no cough and no dyspnea Cardiovascular: no chest pain and no palpitations Gastrointestinal: + diarrhea/loose stools Genitourinary: no urinary incontinence Musculoskeletal: as per Subjective / HPI, + back pain, + neck pain and + myalgia Integumentary: no rash and no lesions Neurologic: as per Subjective / HPI, + gait abnormality, + unsteadiness, + localized weakness, + generalized weakness, + loss of sensation and + tremor(s); no headache(s) and no memory loss Psychiatric: no depression and no anxiety Hematologic / Lymphatic: no easy bleeding and no easy bruising Exam (Neuro) Constitutional: well developed and well nourished; no acute distress Eyes: PERRL, normal accommodation and EOM intact bilaterally; no fundoscopic abnormality and no papilledema Cardiovascular: Vessels: normal carotid upstroke; no carotid bruit Neurologic: Oriented to:: Person, Place and Time Memory: Short Term Intact and Remote Intact Attention: Span Intact and Concentration Intact Speech Fluency: Dysarthria (mild); negative Dysfluency Speech Aphasia: negative Aphasia Fund of Knowledge: Current Events, Past History and Vocabulary Cranial Nerves: Normal II, III, IV, , V, VII, VIII, IX, X, XI and XII Motor Strength: Normal Lower Extremities and Normal Upper Extremities Motor Tone: Normal Lower Extremities and Normal Upper Extremities Rigidity: None Spasticity: None Muscle Bulk/Involuntary Movements: No Involuntary Movements; negative Intention Tremor, Pill Rolling Tremor, Rest Tremor (Arm), Action Tremor or Head Tremor Sensation: negative Light Touch Intact, Pain/Temperature Int act, Vibration Intact or Proprioception Intact Coordination: Limited Balance; negative Dysdiadochokinesia, Finger-Nose Abnormal or Heel-Thomson Abnormal Deep Tendon Reflexes: Rt Triceps: 1+, Lt Triceps: 1+, Rt Biceps: 1+, Lt Biceps: 1+, Rt Brachioradialis: 1+, Lt Brachioradialis: 1+, Rt Patellar: 1+, Lt Patellar: 1+, Rt Ankle: 0 and Lt Ankle: 0 Special Tests: negative Babinski Present Gait: Ataxic Results & Data ([facility]) Vital Signs (Past 12 Hours) Vital Signs Temp Pulse Resp BP Pulse Ox O2 Del Method 08/01/22 09:30 68 110/68 98 Room Air 08/01/22 08:14 36.6 C 69 16 106/58 L 93 Room Air Laboratory Results WBC 10.87, hemoglobin 13.5, hematocrit 38.0, platelet count 148, sodium 137, potassium 4.0, BUN 37, creatinine 1.06, glucose 154, hemoglobin A1c last month was 6.5, this past April was 8.9, calcium 10.4, magnesium 1.8, AST 45, ALT 34, ammonia yesterday was 103.0, a vitamin B12 level from this past April was 674, TSH from July 29 was 2.657 Diagnostic Findings Recently completed lumbar spine MRI reveals a small focal disc protrusion at L4- 5 without significant central canal narrowing, mild disc base narrowing at L5- S1, moderate to severe facet degenerative changes, no fracture or subluxation. A CT of the head completed July 29 was negative for hemorrhage or acute pro cess, there was some scalp swelling seen in the right frontal soft tissues. A CT of the cervical spine revealed moderate multilevel degenerative changes without evidence of acute fracture or subluxation. A brain MRI completed May 11, 2022 revealed mild atrophy and microangiopathic disease. There was increased T1 signal within the basal ganglia bilaterally, nonspecific, potentially consistent with mineralization. I did review the images pertaining to all of these tests and agree with these findings as described by the interpreting radiologist. Per my independent review, brain MRI not suggestive of normal pressure hydrocephalus. The degree of atrophy is mild, generalized, and does not have a specific pattern. I was able to appreciate the increased signal within the basal ganglia bilaterally on T1 sequences potentially consistent with calcification. However, I note the CT of the head completed July 14, 2022 does not suggest significant calcification in these areas. An electrocardiogram reveals a normal sinus rhythm, nondiagnostic lateral Q waves. An echocardiogram completed May 11 was negative for significant valvular heart disease, normal left ventricular systolic function, grade 1 diastolic dysfunction, right ventricular systolic pressure normal. PG Care Time/CCT Total # of Minutes Spent Total Time Spent with Patient: Total time spent is greater than 50% in coordination of care (as documented) at patient's floor/unit and/or counseling patient: Coding Level of Care Code 52292 INT INP/OBS CARE 3/75MIN Diagnoses Atypical parkinsonism G20 Basal ganglia degeneration G23.9 Cirrhosis K74.60
[2022-08-01] MEDS: ENOXAPARIN INJ 40 MG/0.4 ML SYR SQ SCH (13:10)
[2022-08-01 14:52] LABS: C Reactive Protein 3.73 mg/dl (0-0.5)
[2022-08-01] MEDS: CARBIDOPA/LEVODOPA 25/100MG TAB PO SCH ×2 (15:11→21:48)
[2022-08-01] MEDS: DULoxetine HCL 60 MG CAP PO SCH (21:48)
--- NOTE | 2022-08-01 22:11 | Hospitalist Progress Note ---
Date of Service August 01, 2022 Assessment & Plan (1) Weakness: Plan: - Suspect multifactorial due to oral intake due to nausea associated with lactulose, as well as reduced lactulose frequency with lack of BM in 3-4 days. Also probably deconditioned from previous admission, obesity making mobility an issue. - Currently no evidence of infection or injury to cause weakness, specifically low concern for SBP given there is no ascites on exam, she is not encephalop athic. Ammonia 60. UA without evidence of infection. No abdominal pain. - We will gradually try to increase her lactulose back from twice daily to 3 times daily along with continuing her rifaximin. We will also try to utilize IV antiemetics and have dietitian see her regarding her poor nutrition. - PT/OT to evaluate and treat while admitted. Suspect patient may need inpatient rehab and then more regular home health services scheduled to assist with her day-to-day activities. - additional ivf with potassium ordered family gives history of ALS, lumbar mri 07/30/22 Small focal central disc protrusion at L4-5 without significant central canal narrowing. Mild disc space narrowing at L5-S1. Unknown of cause of her weakness. Appreciate input from Neurology. I ordered the labs that were recommended while aalso placing on sinemet for atypical parkisonism. (2) Cirrhosis: Plan: - SMALL cirrhosis, MELD 16 - Follows with [facility]. - No BM in 3-4 days. - Continue lactulose three times daily ( has been taking BID) with rifaximin. Titrate lactulose for 35 BMs/day. - Patient is having difficulty with her lactulose regimen due to nausea. Hopefully will be able to control nausea with antiemetics enough for patient to be able to tolerate lactulose to have at least 3 bowel movements a day. - Ammonia 60, patient is alert and oriented x3, no lab or clinical evidence to support hepatic encephalopathy at this time. - Continue nadolol. Patient appears to not be tolerating the lactulose. will continue to monitor, already on rifaximin, will increase to TID and monitor (3) Contusion of face: Plan: - Right contusion, swelling URI. CT head without any evidence of fracture or other acute process. - Low-dose Tylenol, ice packs as requested by patient for pain control. (4) Chronic diastolic heart failure: Plan: - prescribed torsemide and spironolactone daily. given dehydration on presentation hold torsemide and spironolactone with reinitiation on discharge or with improved renal function and adequate oral intake. - Echo 05/10: LV SF normal, grade 1 diastolic dysfunction with abnormal relaxation pattern, RVSP normal, no significant valvular heart disease. (5) DM2 (diabetes mellitus, type 2): Plan: - GARNISHER: Insulin U500 130 units am, 20 units PM, Ozempic. - BSG on arrival 203. - SSI basal/bolus insulin ordered. - A1c 6.5% 07/15 (6) Depression: Plan: - Continue Cymbalta and Zoloft. (7) GARRETT on CPAP: Plan: - CPAP ordered HS. (8) HTN (hypertension): Plan: - Continue lisinopril, nadolol. (9) HLD (hyperlipidemia): Plan: - Statin and ezetimibe currently on hold by PCP. Plan - Admit to med/surg. - SCDs, Lovenox for VTE PPx. - Full code. Admission and Anticipated Discharge Date Admission Date: July 30, 2022 Subjective 67 yo female reports feeling slightly better. She has no new complaints. Review of Systems Review of Systems: All systems reviewed & are unremarkable except as noted in HPI & below Physical Exam Physical Exam: General: awake, alert, no apparent distress Head: Normocephalic, atraumatic ENT: PERRL, EOMI, no pharyngeal exudate, mucous membranes moist Chest: Clear to auscultation, on room air, no adventitious breath sounds Cardiac: Regular rate and rhythm, no murmur, no JVD, normal peripheral pulses, good capillary refill Abdominal: NABS x 4 quadrants, soft, nontender to palpation, no rebound, guarding or tenderness Extremities: Normal inspection, no peripheral edema or erythema, calfs nontender to palpation Psych: Normal mood and affect Neuro: AAO x 3, strength intact bilaterally and rated 5/5, no motor deficits, speech is clear, no peripheral sensory deficits Skin: no rash or erythema Results & Data Results & Data ([facility]) Vital Signs (Past 12 Hours) Vital Signs Temp Pulse Resp BP Pulse Ox O2 Del Method 08/01/22 20:55 36.6 C 64 16 110/63 98 Room Air 08/01/22 16:03 36.6 C 64 16 109/66 98 Room Air PG Care Time/CCT Total # of Minutes Spent Total Time Spent with Patient: Total time spent is greater than 50% in coordination of care (as documented) at patient's floor/unit and/or counseling patient: Coding Level of Care Code 80467 SUB INP/OBS CARE 2/35MIN Diagnoses Weakness R53.1 Cirrhosis K74.60 Contusion of face S00.83XA Chronic diastolic heart failure I50.32 DM2 (diabetes mellitus, type 2) E11.9 Depression F32.9 GARRETT on CPAP G47.33; Z99.89 HTN (hypertension) I10 HLD (hyperlipidemia) E78.5
[2022-08-02] MEDS: ACETAMINOPHEN 325 MG TAB PO PRN (05:56)
[2022-08-02 07:10] LABS: Albumin Globulin Ratio 0.7 (0.9-2); Albumin Level 2.8 gm/dl (3.4-5.0); BUN Creatinine Ratio 33.6 (10-20); Bilirubin,Total 1.1 mg/dl (0.2-1.0); Calcium 10.4 mg/dl (8.5-10.1); Creatinine Clr Calc Pharmacy 66.2 ml/min; Est GFR (African American) 62.2 ml/min; Est GFR (Non-African American) 53.7 ml/min; Globulin 3.8 gm/dl (2.5-4.0); Potassium 3.9 mmol/L (3.5-5.1); Total Protein 6.6 gm/dl (6.0-8.3)
[2022-08-02] MEDS ORDERED: INSULIN ASPART PER UNIT SC SCH (07:30)
[2022-08-02] MEDS: INSULIN HUMAN NPH SC SCH (09:00)
[2022-08-02] MEDS: LACTULOSE SYRUP 20 GM/30 ML UDC PO SCH ×2 (09:05→14:07)
[2022-08-02] MEDS: DICLOFENAC SOD 1% GEL 100 GM TUBE EXT SCH ×2 (09:06→13:20)
[2022-08-02] MEDS: LIDOCAINE 5% 1 PATCH TD SCH (09:06)
[2022-08-02] MEDS: rifAXIMin 550 MG TABLET PO SCH (09:06)
[2022-08-02] MEDS: CARBIDOPA/LEVODOPA 25/100MG TAB PO SCH ×2 (09:06→14:07)
[2022-08-02] MEDS: PANTOprazole 40 MG TAB PO SCH (09:07)
[2022-08-02] MEDS: nadoloL 40 MG TAB PO SCH ×2 (09:07→09:13)
[2022-08-02] MEDS: SPIRONOLACTONE 100 MG TAB PO SCH (09:08)
[2022-08-02] MEDS: SERTRALINE HCL 50 MG TABLET PO SCH (09:08)
--- NOTE | 2022-08-02 12:54 | Discharge Summary ---
Date of Service August 02, 2022 Admission HPI Per Admitting Provider Indu Carbone is a 67-year-old female with a past medical history significant for SMALL cirrhosis, diastolic heart failure, CKD, DM2, hypertension, hyperlipidemia, and GARRETT who is presenting today from home for recurrent falls. Patient was recently admitted 07/14-07/17 with hepatic encephalopathy. Since discharge she has had difficulty with p.o. intake due to nausea from her lactulose therefore has become very weak and unsteady on her feet. Last night she had 2 falls while walking to the bathroom with her walker when she reports her legs gave out on her. Both times, she was unable to get herself up. EMS was summoned, and on the second fall they brought her to the hospital for further evaluation. She has been taking her lactulose twice daily, and admits she has not had a bowel movement in 3-4 days, however previously while taking it 3 times a day was having significant diarrhea that she could not keep up with, so she reduced the dose to twice daily. She will if she does not have any bowel movements because she is barely eating anything. She has been compliant with her rifaximin. She does note that she is severely nauseated with her lactulose and that it often does not stay down. She feels too weak to be at home, currently she has PT that comes once weekly otherwise is no help or assistance at home. Patient anxious to find solutions to her weakness/assistance with care in her home so that she can avoid admissions for such in the future. On exam she is complaining of fatigue, weakness, neck pain and bilateral leg cramps. Denies any chest pain, palpitations, or syncope preceding fall. Has not had any fever, chills, abdominal pain, confusion, or urinary symptoms. On presentation, her vital signs are within normal limits and stable. Labs remarkable for WBC of 12, creatinine 1.37 (baseline 0.71.0), T bili 1.6 and AST 63 (baseline). Glucose elevated at 203. UA contaminated with 2030 epithelial cells, with trace leukoesterase and WBCs. COVID-negative. Imaging including pelvis x-ray, head CT, CXR, C-spine CT, lumbar spine CT, and the x-ray all largely unremarkable, there is comment of a small right knee joint effusion, scalp swelling seen on head CT. Principal Diagnosis generalized weakness Discharge Exam General: awake, alert, no apparent distress Head: Normocephalic, atraumatic ENT: PERRL, EOMI, no pharyngeal exudate, mucous membranes moist Chest: Clear to auscultation, on room air, no adventitious breath sounds Cardiac: Regular rate and rhythm, no murmur, no JVD, normal peripheral pulses, good capillary refill Abdominal: NABS x 4 quadrants, soft, nontender to palpation, no rebound, guarding or tenderness Extremities: Normal inspection, no peripheral edema or erythema, calfs nontender to palpation Psych: Normal mood and affect Neuro: AAO x 3, strength intact bilaterally and rated 5/5, no motor deficits, speech is clear, no peripheral sensory deficits Skin: no rash or erythema Discharge Data Allergies Allergy/AdvReac Type Severity Reaction Status Date / Time ciprofloxacin Allergy Intermediate MOUTH Verified 07/29/22 11:27 BLISTERS, HIVES morphine Allergy Intermediate HIVES, Verified 07/29/22 11:27 "DEATHLY ILL", THROWS UP oxycodone Allergy Intermediate HIVES, Verified 07/29/22 11:27 VOMITING penicillin V Allergy Intermediate HIVES Verified 07/29/22 11:27 Consultations 07/29/22 07:41 ED Decision to Admit Stat 07/31/22 16:49 Consult Neurology Routine Ordered Studies 07/29/22 04:53 CT lumbar spine wo con Stat 07/29/22 04:54 CT cervical spine wo con Stat CT head/brain wo con Stat 07/30/22 07:30 MRI Lumbar Spine [MR lumbar spine wo con] Routine Hospital Course (1) Weakness: - Suspect multifactorial due to oral intake due to nausea associated with lactulose, as well as reduced lactulose frequency with lack of BM in 3-4 days. Also probably deconditioned from previous admission, obesity making mobility an issue. - Currently no evidence of infection or injury to cause weakness, specifically low concern for SBP given there is no ascites on exam, she is not encephalopathic. Ammonia 60. UA without evidence of infection. No abdominal pain. - We will gradually try to increase her lactulose back from twice daily to 3 times daily along with continuing her rifaximin. We will also try to utilize IV antiemetics and have dietitian see her regarding her poor nutrition. - PT/OT to evaluate and treat while admitted. Suspect patient may need inpatient rehab and then more regular home health services scheduled to assist with her day-to-day activities. - additional ivf with potassium ordered family gives history of ALS, lumbar mri 07/30/22 Small focal central disc protrusion at L4-5 without significant central canal narrowing. Mild disc space narrowing at L5-S1. Unknown of cause of her weakness. Appreciate input from Neurology. I ordered the labs that were recommended while also placing on sinemet for atypical parkisonism. (2) Cirrhosis: - SMALL cirrhosis, MELD 16 - Follows with [facility]. - No BM in 3-4 days. - Continue lactulose three times daily ( has been taking BID) with rifaximin. Titrate lactulose for 35 BMs/day. - Patient is having difficulty with her lactulose regimen due to nausea. Hopefully will be able to control nausea with antiemetics enough for patient to be able to tolerate lactulose to have at least 3 bowel movements a day. - Ammonia 60, patient is alert and oriented x3, no lab or clinical evidence to support hepatic encephalopathy at this time. - Continue nadolol. Patient tolerated the orange flavor lactulose in [employer]. will continue to monitor, already on rifaximin, resume home dose of lactulose with goal of 2-3 BM per day (3) Contusion of face: - Right contusion, swelling URI. CT head without any evidence of fracture or other acute process. - Low-dose Tylenol, ice packs as requested by patient for pain control. (4) Chronic diastolic heart failure: - prescribed torsemide and spironolactone daily. given dehydration on presentation hold torsemide and spironolactone with reinitiation on discharge or with improved renal function and adequate oral intake. - Echo 05/10: LV SF normal, grade 1 diastolic dysfunction with abnormal relaxation pattern, RVSP normal, no significant valvular heart disease. 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 - BSG on arrival 203. - SSI basal/bolus insulin ordered. - A1c 6.5% 07/15 (6) Depression: - Continue Cymbalta and Zoloft. (7) GARRETT on CPAP: - CPAP ordered HS. (8) HTN (hypertension): - Continue lisinopril, nadolol. (9) HLD (hyperlipidemia): - Statin and ezetimibe currently on hold by PCP. (10) CKD (chronic kidney disease) stage 2, GFR 60-89 ml/min: Acute kidney failure on CKD 2 Resolved. Now with CKD Plan - Admit to med/surg. - SCDs, Lovenox for VTE PPx. - Full code. Total Time Total Time Spent Total Time Spent (In Minutes): 35 Discharge Plan Discharge Items Patient Disposition: Transfer [facility] Reason For Visit: RECURRENT FALLS, WEAKNESS Discharge Diagnosis: recurrent falls Activity: Resume your previous activity Non-emergency contact: Primary Care Provider Call non-emergency contact if: you have any medication questions Follow-up/Referrals: Alana Peres MD [Primary Care Provider] - Diet: Carb Consistent or DM2, Low Fat and Low Sodium (2gm) Addtl Attending Provider Instructions: You appear to be able to tolerate the orange flavor lactulose mixed with orange juice. will recommend you continue with this. Neurology saw you and recommended: An outpatient for limb EMG with repetitive stimulation. Try Sinemet at this point in time. Would recommend starting with a low-dose, 25/100 mg tablet, 1/2 tablet taken 3 times per day, increase to 1 whole tablet taken 3 times per day after 1 week. Recommend rechecking BMP in 1 week Recommend followup with PCP in 1-2 weeks Recommend 2-3 bowel movements per day. Pending Studies at Discharge: No Stand-Alone Forms: My [employer] Skilled Items Patient informed of condition?: Yes DNR: No Discharge Level of Care: Skilled Communicable Disease: Yes Discharge Prognosis: Stable Lines: None Urinary Catheter: No Medications and DC Order Prescriptions: New carbidopa-levodopa [Sinemet] 25-100 mg Tablet 0.5 tab PO TID Qty: 90 0RF lidocaine 5 % Adhesive Patch,Medicated 1 patch transdermal QAM Qty: 7 0RF Continued (DME) FreeStyle Courtney 2 [place] Misc See Rx Instructions .ROUTE .MEDSUPPLY Qty: 1 0RF Rx Instructions: As directed dx E11.9 (DME) pen needle, diabetic [BD Ultra-Fine Mini Pen Needle] 31 gauge x 3/16" needle See Rx Instructions .ROUTE .MEDSUPPLY Qty: 300 3RF Rx Instructions: Use 3 per day as directed with insulin injection albuterol sulfate [ProAir HFA] 90 mcg/actuation HFA aerosol inhaler 2 puff Inhalation Q4 PRN (Reason: Shortness Of Breath Or Wheezing) Qty: 8.5 5RF (DME) Shower Chair Misc See Rx Instructions .Route Qty: 1 0RF Rx Instructions: shower sliding transfer bench omeprazole 40 mg capsule,delayed release(DR/EC) 40 mg PO QAM Qty: 90 1RF cranberry 450 mg tablet 450 mg PO DAILY Humulin R U-500 (Conc) Kwikpen 500 unit/mL (3 mL) insulin pen See Rx Instructions .ROUTE .COMPLEX Rx Instructions: 140 units in the morning, 10 units in pm subcut daily; magnesium hydroxide [Milk of Magnesia] 400 mg/5 mL suspension 60 ml PO DAILY PRN (Reason: constipation) Qty: 355 0RF (DME) FreeStyle Courtney 2 Sensor Kit See Rx Instructions .ROUTE .MEDSUPPLY Qty: 2 12RF Rx Instructions: As directed dx E11.9 (DME) blood sugar diagnostic Strip See Rx Instructions .ROUTE .MEDSUPPLY Qty: 100 0RF Rx Instructions: Test 3 times daily; DX CODE- E11.9 diclofenac sodium [Voltaren Arthritis Pain] 1 % gel 2 g topical QID Qty: 100 2RF Rx Instructions: apply to single elbow, wrist or hand; for hand includes palm/fingers/back of hand (DME) miscellaneous medical supply Misc See Rx Instructions miscellaneous .MEDSUPPLY Qty: 1 0RF Rx Instructions: Mom meals potassium chloride 10 mEq tablet extended release 10 meq PO 3XWK Rx Instructions: TAKES MON, WED, & FRI WITH METOLAZONE. spironolactone 100 mg tablet 100 mg PO DAILY torsemide 40 mg tablet 40 mg PO QAM Qty: 90 3RF (DME) lancets [OneTouch UltraSoft Lancets] [facility] See Rx Instructions .ROUTE .MEDSUPPLY Qty: 100 Rx Instructions: Test 3 times daily rosuvastatin 40 mg tablet 40 mg PO .HS UD Hold Instructions: due to nausea, until nausea controlled Rx Instructions: IS ON HOLD @ PRESENT, UNTIL NAUSEA CONTROLLED nitroglycerin [Nitrostat] 0.4 mg Tablet, Sublingual 0.4 mg sublingual UD PRN (Reason: Chest Pain) nadolol 20 mg Tablet 10 mg PO QAM sertraline [Zoloft] 50 mg tablet 50 mg PO DAILY duloxetine 60 mg capsule,delayed release(DR/EC) 60 mg PO HS ondansetron 4 mg tablet,disintegrating 4 mg PO Q8 PRN (Reason: Nausea) Xifaxan 550 mg Tablet 550 mg PO BID 30 Days Qty: 60 0RF lactulose 20 gram packet 20 g PO BID 30 Days Qty: 30 0RF Discontinued lisinopril 2.5 mg Tablet 2.5 mg PO .QAM UD Hold Instructions: due to low bp Rx Instructions: Is on hold right now due to low bp ezetimibe 10 mg tablet 10 mg PO .DAILY UD Hold Instructions: due to nausea Rx Instructions: Is on hold at present due to nausea Discharge Orders: Discharge Order (Routine); Ordered 08/02/22 Ordered By: Suleman Mcclelland Admission Data Admit Date/Time: 07/30/22 14:46 Attending Provider: Suleman Mcclelland Admit Provider: Carlos Putnam Primary Care Provider: Alana Peres Other Providers: Carlos Putnam ; [facility] ; Logan Bender Other Interventions: Discharge Summary Assessment (RN) Last Done: 08/02/22 15:08 Coding Level of Care Code HOSP INP/OBS DISCH >30 MIN Diagnoses Weakness R53.1 Cirrhosis K74.60 Contusion of face S00.83XA Chronic diastolic heart failure I50.32 DM2 (diabetes mellitus, type 2) E11.9 Depression F32.9 GARRETT on CPAP G47.33; Z99.89 HTN (hypertension) I10 HLD (hyperlipidemia) E78.5 CKD (chronic kidney disease) stage 2, GFR 60-89 ml/min N18.2
[2022-08-02] MEDS: ENOXAPARIN INJ 40 MG/0.4 ML SYR SQ SCH (13:20)
[2022-08-02] MEDS: INSULIN ASPART PER UNIT SC SCH (13:21)
[2022-08-09 18:03] LABS: Aldolase 7.4 U/L (< OR = 8.1); Anti Nuclear Antibody Screen POSITIVE (NEGATIVE); Ceruloplasmin 32 mg/dL (18-53); Copper, Serum 119 mcg/dL (70-175); JO 1 Antibody <1.0 NEG AI (<1.0 NEG); Receptor Binding Ab <0.30 nmol/L
== END 2022-08-02 15:05 | DRG 442 ==
LOC: EDINP 04:43 → ED 04:43 → 3N 12:47 → SUATTDRO 07-30 14:46 → 3N 07-30 16:24

== ENCOUNTER 2022-08-08 07:46 | Inpatient (IN) ==
--- NOTE | 2022-08-08 08:19 | XRay Report ---
SINGLE VIEW CHEST CLINICAL HISTORY: Strokelike symptoms. FINDINGS: An AP, portable, upright chest radiograph is compared to study dated 07/29/2022. Correlation is made with chest CT dated 07/20/2016. The heart is enlarged. The pulmonary vasculature is noncongest ed. Chronic interstitial thickening is similar to previous. The lungs and pleural spaces are clear no ting bibasilar scarring/atelectasis. No pneumothorax is seen. The skeletal structures are osteopenic. The bony thorax is grossly intact. Cholecystectomy clips are seen in the right upper quadrant. IMPRESSION: Cardiomegaly with no active disease in the chest. ACT 112: Negative or not required by law. Electronically signed by: Bravo Moe M.D. 08/08/2022 8:17 AM
[2022-08-08] MEDS: SODIUM CHLORIDE 0.9% 1000ML 1,000 ML IV SCH ×2 (08:26→17:45)
[2022-08-08 08:34] LABS: Basophils # (auto) 0.01 K/uL (0-0.2); Basophils % (auto) 0.1 %; Eosinophils # (auto) 0.02 K/uL (0-0.50); Eosinophils % (auto) 0.2 %; Hematocrit (blood only) 44.3 % (34.1-44.9); Hemoglobin 15.6 g/dl (12.0-16.0); Immature Granulocytes # (auto) 0.03 K/uL (0.00-0.02); Immature Granulocytes % (auto) 0.3 %; Lymphocytes # (auto) 1.71 K/uL (1.2-3.4); Lymphocytes % (auto) 15.9 %; Mean Corpuscular Hemoglobin 31.1 pg (25.0-34.0); Mean Corpuscular Hgb Conc 35.2 g/dL (32.0-36.0); Mean Corpuscular Volume 88.2 fL (80.0-100.0); Mean Platelet Volume 11.1 fL (9.4-12.3); Monocytes # (auto) 1.33 K/uL (0.24-0.82); Monocytes % (auto) 12.4 %; Neutrophils # (auto) 7.66 K/uL (1.4-6.5); Neutrophils % (auto) 71.1 %; Platelet Count 170 K/uL (130-400); RDW Coefficient of Variation 14.2 % (11.5-14.5); RDW Standard Deviation 45.7 fL (36.4-46.3); Red Blood Count 5.02 M/uL (3.93-5.22); White Blood Count 10.76 K/ul (4.8-10.8)
[2022-08-08 08:44] LABS: Troponin I High Sensitivity 24.3 pg/ml (0-14)
[2022-08-08] MEDS ORDERED: OPTIRAY 320 500ml IV ONE (08:51)
[2022-08-08 09:21] LABS: Alanine Aminotransferase 17 U/L (7-52); Albumin Globulin Ratio 0.7 (0.9-2); Albumin Level 3.2 gm/dl (3.4-5.0); Alkaline Phosphatase 85 U/L (34-104); Anion Gap 7 (3-11); Aspartate Aminotransferase 74 U/L (13-39); BUN Creatinine Ratio 25.4 (10-20); Bilirubin,Total 1.1 mg/dl (0.2-1.0); Blood Urea Nitrogen 43 mg/dl (6-23); Calcium 9.8 mg/dl (8.5-10.1); Carbon Dioxide 40 mmol/L (21-32); Chloride 90 mmol/L (98-107); Est GFR (African American) 35.8 ml/min; Est GFR (Non-African American) 30.9 ml/min; Globulin 4.5 gm/dl (2.5-4.0); Glucose 175 mg/dl (70-99(Fasting)); Magnesium 1.8 mg/dl (1.7-2.4); Potassium 3.2 mmol/L (3.5-5.1); Sodium 137 mmol/L (136-145); Total Protein 7.7 gm/dl (6.0-8.3)
[2022-08-08 09:21] LABS: INR 1.1 (0.9-1.1); Partial Thromboplastin Ratio 0.9; Partial Thromboplastin Time 25.1 Seconds (21.0-31.0)
--- NOTE | 2022-08-08 09:23 | CT Scan Report ---
UNENHANCED CT OF THE BRAIN; CT ANGIOGRAM OF THE BRAIN; CT ANGIOGRAM OF THE NECK CLINICAL HISTORY: Strokelike symptoms. Neurological deficit. COMPARISON STUDY: CT of the brain dated 07/29/2022. TECHNIQUE: Unenhanced axial CT scan of the brain is performed. Subsequently, following the IV adminis tration of 120 of Optiray 320, CT angiogram of the head and neck was performed from the aortic arch t o the vertex. Images are reviewed in the axial, sagittal, and coronal planes. 3-D MIPS images are cre ated and assessed. IV contrast was administered without complication. All measurements were calculate d based on NASCET criteria. A dose lowering technique was utilized adhering to the principles of ALA RA. CT DOSE: 1219.90 mGy.cm FINDINGS: Brain parenchyma: The brain parenchyma is normal in appearance. There is no hemorrhage, mass effect, or evidence of acute territorial ischemia by CT criteria. There is no evidence of enhancing mass lesi on on the angiogram phase images. The ventricles, sulci, and cisterns are normal in configuration. Gr ay-white matter differentiation is preserved. No extra-axial fluid collection is seen. Thoracic aorta: There is moderate atherosclerotic calcification of the thoracic aorta. Visualized por tions of the thoracic aorta are normal in caliber. The aortic arch demonstrates standard 3-vessel mami raheel. Right carotid arterial system: The right common carotid artery is widely patent, as are the right int ernal and external carotid arteries. Left carotid arterial system: The left common carotid artery is widely patent, as are the left programming intern al and external carotid arteries. Vertebral arteries: The vertebral arteries are widely patent bilaterally and codominant. Subclavian arteries: Widely patent bilaterally. Intracranial vasculature: There is atherosclerotic calcification of the cavernous carotid arteries. T he internal carotid arteries are patent at the skull base, as are the anterior and middle cerebral ar teries bilaterally. The vertebrobasilar system and posterior cerebral arteries are widely patent. The vertebral arteries are codominant. There is no aneurysm, high-grade stenosis, or focal vessel cut of f seen throughout the intracranial circulation. Jugular veins: Patent bilaterally. Dural sinuses: Patent. Lung apices: Nodular opacities measuring up to 1.7 cm are partially visualized in the right upper lob e. Soft tissues: The visualized pharyngeal soft tissues are normal in appearance noting angiographic pha se technique. The oropharyngeal airway appears widely patent. The thyroid gland is heterogeneous. The salivary glands are normal in appearance. No cervical lymphadenopathy is seen. Skeletal structures: The skeletal structures are osteopenic. The calvarium appears intact. The cervic al spine is maintained noting mild multilevel spondylosis. No lytic or blastic lesion is seen. Orbits: The bony orbits are intact. Orbital contents are normal as visualized noting bilateral ocular lens implants. Sinuses and mastoids: There is a subcentimeter retention cyst in the left maxillary antrum. The remai karina paranasal sinuses are clear. The mastoid air cells are well pneumatized. IMPRESSION: 1. There is no hemorrhage, mass effect, or evidence of acute territorial ischemia by CT criteria. 2. Unremarkable CT angiogram of the brain. 3. Unremarkable CT angiogram of the neck. 4. Patchy nodular airspace opacities are partially visualized in the right upper lobe and may represe nt a mild pneumonitis. Clinical correlation will be required. A follow-up chest CT in 2-3 weeks' time is recommended to document resolution and exclude underlying pulmonary lesion. ACT 112: Positive. There are findings on this exam that require communication between the performing entity and the patient following Patient Test Result Information Act ([place] Act 112) guidelines. Electronically signed by: Bravo Moe M.D. 08/08/2022 9:21 AM
[2022-08-08 09:53] LABS: iSTAT Blood Urea Nitrogen 43 mg/dl (7-18); iSTAT Carbon Dioxide > 40 mmol/L (24-31); iSTAT Chloride 88 mmol/L (101-112); iSTAT Creatinine 1.7 mg/dl (0.6-1.3); iSTAT Hematocrit 49 % (37-47); iSTAT Hemoglobin 16.7 g/dl (12.0-16.0); iSTAT Ionized Calcium 1.11 mmol/l (1.12-1.32); iSTAT Potassium 3.1 mmol/L (3.3-5.0); iSTAT Sodium 137 mmol/L (135-144)
--- NOTE | 2022-08-08 10:48 | Emergency Department Note ---
Impression & Plan Altered mental status, Hepatic encephalopathy, Right sided weakness, MARY ELLEN (acute kidney injury), Hyperammonemia ED Provider Note ED Provider Note NAME: HOSSEIN MCALLISTER AGE:67 SEX: Female : 1955 ARRIVES VIA: EMS INFORMANT: EMS ED PROVIDER(s): Elana Mon DO CHIEF COMPLAINT: Altered mental status HPI: This is a 67-year-old female who presents via EMS due to concern for altered mental status. Staff reported to EMS that patient has been at their facility for rehab since being discharged from the hospital last week. They report she complained yesterday of not feeling well but did not offer any specific complaints. They states she ate dinner and then went to bed. This morning patient was minimally responsive and they were concerned initially for hypoglycemia. EMS reports on their arrival blood sugar was 87, however they noted asymmetric weakness, worse on the right side. Patient minimally responsiv e to pain. Vital signs otherwise stable. Staff did not report any additional findings to them. Patient was monitored in route by EMS without any other significant changes. Patient denies any pain or difficulty breathing. States she does not know why she is here. PAST MEDICAL HISTORY:See Below PAST SURGICAL HISTORY:See Below FAMILY HISTORY:See Below SOCIAL HISTORY:See Below HOME MEDICATIONS:See Below ALLERGIES:See Below VITALS:See Below PHYSICAL EXAMINATION: GENERAL: alert, unwell appearing, well nourished, no distress, non-toxic, HEAD: nc, evidence of resolving facial contusion noted to the right periorbital region, no evidence of new head or facial trauma EYE EXAM: normal conjunctiva, PERRL and EOM's grossly intact OROPHARYNX: no exudate, no erythema, lips, buccal mucosa, and tongue normal and mucous membranes are dry NECK: supple, no nuchal rigidity, no adenopathy, non-tender LUNGS: Clear to auscultation. Normal chest wall mechanics, no w/r/r HEART: no murmurs, S1 normal and S2 normal ABDOMEN: abdomen soft, non-tender, normo-active bowel sounds, no masses, no rebound or guarding. BACK: Back is symmetrical on inspection and there is no deformity, no midline tenderness, no CVA tenderness. SKIN: no rashes, petechiae, orbruising UPPER EXTREMITIES: upper extremities are grossly normal. nml pulses b/l. Increased weakness to the right upper extremity compared to the left LOWER EXTREMITIES: No pitting edema. FROM, nml pulses b/l, increased weakness to the right lower extremity compared to the left. NEURO EXAM: Patient opens eyes to voice, answers simple questions with yes no answer, will follow commands to squeeze hands Vital Signs: reviewed and remarkable Differential Diagnosis: Differential diagnoses includes but is not limited to toxic, metabolic, infectious, traumatic, cardiac, neurologic, hematologic, psychiatric and inflammatory etiologies. MEDICAL DECISION MAKING: This is a 67-year-old female presents via EMS from a local facility due to concern for altered mentation. EMS noted asymmetric strength additionally. Vital signs stable. Labs drawn and sent, and patient started on IV fluids. Additional orders placed including CT/CTA to rule out stroke. Ammonia was added due to the patient's history of Zapine and her altered mentation although patient was minimally responsive here and would answer simple questions, open eyes to voice and follow commands. No obvious abnormality noted on CT/CTA. Given unknown time of onset, patient not a candidate for other acute intervention. EKG interpreted by me without any acute changes. Patient found to have an elevated ammonia, likely contributing to her altered mentation. Patient also found to have MARY ELLEN. UA still pending at time of discussion with hospitalist team. Vital signs stable while in the emergency room. No other acute evolving changes noted on repeat bedside exam. Consultation(s): 1058: Discussed with MITCHELL Canela with [facility] hospitalist service. ER Treatment Provided: See below 1046: Mental status stable, vital signs stable. Diagnostics Interpreted By Me: -ECG: Normal sinus rhythm at 78, normal axis, normal QRS and QTc, nonspecific ST/T wave changes, no significant change compared to July 29, 2022 -Cardiac Monitoring: An order was placed for continuous cardiac monitoring. The monitor shows a rate of 86 with normal sinus rhythm. -Laboratory studies: As stated above and show below. -Imaging studies: Chest x-ray, CT head, CTA head, CTA neck Triage Nursing Note Reviewed Prior/Outside Records Reviewed from recent hospitalization Procedures: [] Critical Care: [] Past Med/Surg History Medical History Acute alteration in mental status Acute metabolic encephalopathy Cancer UTERINE CANCER SKIN CANCER Cardiac murmur Chronic kidney disease STAGE 3-4? F/U PCP Congestive heart failure Constipation Diffuse myofascial pain syndrome Diverticular disease DM2 (diabetes mellitus, type 2) IDDM Fall Fatty liver PER PT ROME (generalized anxiety disorder) Gastroparesis GERD (gastroesophageal reflux disease) History of anesthesia reaction difficulty waking History of COVID-19 09/2020 @ [facility]--headache/diarrhea--no issues now HLD (hyperlipidemia) HTN (hypertension) Hx MRSA infection Hypokalemia IBS (irritable bowel syndrome) Migraine Morbid obesity with BMI of 45.0-49.9, adult Nausea and vomiting after administration of anesthetic agent Occasional tremors AT NIGHT GARRETT on CPAP Osteoarthritis Serum ammonia increased Surgical History Cancer MELANOMA SIDE LEFT FACE-EXCISION H/O esophagogastroduodenoscopy H/O eye surgery LASER RT/LEFT FOR HIGH PRESSURE History of appendectomy History of bladder surgery BLADDER TACK History of colonoscopy History of left heart catheterization (LHC) "normal 2001" History of tooth extraction History of total knee replacement RIGHT S/P cholecystectomy S/P [facility]-BSO 1983 Family History Father Diabetes Sister Ovarian cancer Family history of diabetes mellitus Sister Family history of diabetes mellitus Mother Breast cancer Family history of reaction to anesthesia slow to wake--n/v Grandmother (Maternal) Myocardial infarction Uncle Prostate cancer Other Cancer Gallbladder disease Heart disease Hypertension Lung disease Denies family history of Colon cancer Social History Smoking Status: Unknown if ever smoked Second Hand Exposure: No; Hx Alcohol Use: No Hx Substance Use: No Preferred Language: Iraqi Communication Ability: Effective Visual Impairment: No Limitations Hearing Ability: Normal [employer] Estate Internship Required: No Beliefs That Will Affect Care: None marital status: Current Living Situation: Alone Current Living Situation Comment: roommate at independent living facility current occupational status: retired 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 Feels Safe at Home: Yes Childhood Exposure to Second-Hand Smoke: Yes Dental Care, Regularly: Yes Physical Activity Frequency: 3-4 Times per Week Seatbelt Use: always Sunscreen Use: Yes Assistive Devices: Raised Toilet Seat and Wheelchair Allergies Allergies Allergy/AdvReac Type Severity Reaction Status Date / Time ciprofloxacin Allergy Intermediate MOUTH Verified 07/29/22 11:27 BLISTERS, HIVES morphine Allergy Intermediate HIVES, Verified 07/29/22 11:27 "DEATHLY ILL", THROWS UP oxycodone Allergy Intermediate HIVES, Verified 07/29/22 11:27 VOMITING penicillin V Allergy Intermediate HIVES Verified 07/29/22 11:27 Home Meds Home Medications Medication Instructions Recorded Confirmed nitroglycerin 0.4 mg sublingual 0.4 mg sublingual UD PRN Chest Pain 10/10/18 08/08/22 tablet (Nitrostat) rosuvastatin 40 mg tablet 40 mg PO .HS UD 10/10/18 08/08/22 lancets (OneTouch UltraSoft #100 ea 04/05/20 08/08/22 Lancets) nadolol 20 mg tablet 10 mg PO QAM 10/11/21 08/08/22 potassium chloride 10 mEq 10 meq PO 3XWK 03/26/22 08/08/22 tablet,extended release spironolactone 100 mg tablet 100 mg PO DAILY 03/26/22 08/08/22 duloxetine 60 mg capsule,delayed 60 mg PO HS 05/10/22 08/08/22 release cranberry fruit 450 mg tablet 450 mg PO DAILY 05/16/22 08/08/22 (cranberry) insulin regular hum U-500 conc 500 See Rx Instructions .Route .COMPLEX 05/16/22 08/08/22 unit/mL(3 mL) subcut pen (Humulin R U-500 (Conc) Insulin Kwikpen) sertraline 50 mg tablet (Zoloft) 50 mg PO DAILY 06/27/22 08/08/22 ondansetron 4 mg disintegrating 4 mg PO Q8 PRN Nausea 07/14/22 08/08/22 tablet carbidopa 10 mg-levodopa 100 mg 1 tab TID 08/08/22 08/08/22 tablet ezetimibe 10 mg tablet mg 08/08/22 Previous Rx's Medication Instructions Recorded flash glucose scanning reader #1 ea 06/05/20 (FreeStyle Courtney 2 [place]) BD Ultra-Fine Mini Pen Needle 31 #300 ea 10/30/20 gauge x 3/16" (pen needle, diabetic) albuterol sulfate 90 mcg/actuation 2 puff inhalation Q4 PRN Shortness 12/20/21 aerosol inhaler (ProAir HFA) Of Breath Or Wheezing #8.5 grams Shower Chair #1 ea 03/28/22 omeprazole 40 mg capsule,delayed 40 mg PO QAM #90 caps 04/21/22 release magnesium hydroxide 400 mg/5 mL 60 ml PO DAILY PRN constipation 05/20/22 oral suspension (Milk of Magnesia) #355 mL torsemide 40 mg tablet 40 mg PO QAM #90 tabs 06/10/22 blood sugar diagnostic #100 ea 07/01/22 flash glucose sensor (FreeStyle #2 ea 07/01/22 Courtney 2 Sensor kit) lactulose 20 gram oral packet 20 g PO BID 30 days #30 ea 07/17/22 rifaximin 550 mg tablet (Xifaxan) 550 mg PO BID 30 days #60 tabs 07/17/22 miscellaneous medical supply #1 ea 07/25/22 diclofenac sodium 1 % topical gel 2 g topical QID #100 grams 07/28/22 (Voltaren Arthritis Pain) lidocaine 5 % topical patch 1 patch transdermal QAM #7 ea 08/02/22 Results & Data (ED) Vital Signs Vital Signs - 24 hr 08/08/22 07:18 08/08/22 08:28 Temperature 35.7 C L Temperature Source Axillary Pulse Rate 78 Pulse Rhythm Regular Pulse Strength Normal Respiratory Rate 17 Respiratory Effort / Characteristics Non-Labored Respiratory Depth Normal Respiratory Pattern Regular Blood Pressure 138/69 Blood Pressure Mean 92 Pulse Oximetry 94 Oxygen Delivery Method Room Air Room Air Sepsis Recent Fever Within 48 Hours No Sepsis New/Unexplained Change in Mental Status Yes Sepsis Action Taken by Nursing No Action Required Laboratory Data 08/08/22 08:18 08/08/22 08:08 Lab Results 08/08/22 08/08/22 08/08/22 Range/Units 07:50 08:08 08:08 WBC (4.8-10.8) K/ul RBC (3.93-5.22) M/uL Hgb (12.0-16.0) g/dl POC Hgb (12.0-16.0) g/dl Hct (34.1-44.9) % POC Hct (37-47) % MCV (80.0-100.0) fL MCH (25.0-34.0) pg MCHC (32.0-36.0) g/dL RDW Std Deviation (36.4-46.3) fL RDW Coeff of Vanesa (11.5-14.5) % Plt Count (130-400) K/uL MPV (9.4-12.3) fL Immature Gran % (Auto) % Neut % (Auto) % Lymph % (Auto) % Clayton % (Auto) % Eos % (Auto) % Baso % (Auto) % Neut # (Auto) (1.4-6.5) K/uL Lymph # (Auto) (1.2-3.4) K/uL Clayton # (Auto) (0.24-0.82) K/uL Eos # (Auto) (0-0.50) K/uL Baso # (Auto) (0-0.2) K/uL Immature Gran # (Auto) (0.00-0.02) K/uL PT (9.0-12.0) Seconds INR (0.9-1.1) APTT (21.0-31.0) Seconds PTT Ratio POC Sodium (135-144) mmol/L Sodium 137 (136-145) mmol/L POC Potassium (3.3-5.0) mmol/L Potassium 3.2 L (3.5-5.1) mmol/L POC Chloride (101-112) mmol/L Chloride 90 L (98-107) mmol/L Carbon Dioxide 40 H (21-32) mmol/L POC Total CO2 (24-31) mmol/L Anion Gap 7 (3-11) POC Anion Gap (16-25) mmol/L POC BUN (7-18) mg/dl BUN 43 H (6-23) mg/dl Creatinine 1.69 H (0.6-1.2) mg/dl POC Creatinine (0.6-1.3) mg/dl Est Cr Clr Drug Dosing Not Reportable Est GFR ( Amer) 35.8 ml/min Est GFR (Non-Af Amer) 30.9 ml/min BUN/Creatinine Ratio 25.4 H (10-20) Glucose 175 H (70-99(Fasting)) mg/dl POC Glucose 233 H (70-99) mg/dl POC Glucose (other) Calcium 9.8 (8.5-10.1) mg/dl POC Ioniz Calcium Darell (1.12-1.32) mmol/l Magnesium 1.8 (1.7-2.4) mg/dl Total Bilirubin 1.1 H (0.2-1.0) mg/dl AST 74 H (13-39) U/L ALT 17 (7-52) U/L Alkaline Phosphatase 85 (34-104) U/L Ammonia 100.0 H (18-72) umol/L Troponin I High Sens 24.3 H (0-14) pg/ml Total Protein 7.7 (6.0-8.3) gm/dl Albumin 3.2 L (3.4-5.0) gm/dl Globulin 4.5 H (2.5-4.0) gm/dl Albumin/Globulin Ratio 0.7 L (0.9-2) 08/08/22 08/08/22 08/08/22 Range/Units 08:18 08:18 08:18 WBC 10.76 (4.8-10.8) K/ul RBC 5.02 (3.93-5.22) M/uL Hgb 15.6 (12.0-16.0) g/dl POC Hgb 16.7 H (12.0-16.0) g/dl Hct 44.3 (34.1-44.9) % POC Hct 49 H (37-47) % MCV 88.2 (80.0-100.0) fL MCH 31.1 (25.0-34.0) pg MCHC 35.2 (32.0-36.0) g/dL RDW Std Deviation 45.7 (36.4-46.3) fL RDW Coeff of Vanesa 14.2 (11.5-14.5) % Plt Count 170 (130-400) K/uL MPV 11.1 (9.4-12.3) fL Immature Gran % (Auto) 0.3 % Neut % (Auto) 71.1 % Lymph % (Auto) 15.9 % Clayton % (Auto) 12.4 % Eos % (Auto) 0.2 % Baso % (Auto) 0.1 % Neut # (Auto) 7.66 H (1.4-6.5) K/uL Lymph # (Auto) 1.71 (1.2-3.4) K/uL Clayton # (Auto) 1.33 H (0.24-0.82) K/uL Eos # (Auto) 0.02 (0-0.50) K/uL Baso # (Auto) 0.01 (0-0.2) K/uL Immature Gran # (Auto) 0.03 H (0.00-0.02) K/uL PT 12.0 (9.0-12.0) Seconds INR 1.1 (0.9-1.1) APTT 25.1 (21.0-31.0) Seconds PTT Ratio 0.9 POC Sodium 137 (135-144) mmol/L Sodium (136-145) mmol/L POC Potassium 3.1 L (3.3-5.0) mmol/L Potassium (3.5-5.1) mmol/L POC Chloride 88 L (101-112) mmol/L Chloride (98-107) mmol/L Carbon Dioxide (21-32) mmol/L POC Total CO2 > 40 H* (24-31) mmol/L Anion Gap (3-11) POC Anion Gap 12.0 L (16-25) mmol/L POC BUN 43 H (7-18) mg/dl BUN (6-23) mg/dl Creatinine (0.6-1.2) mg/dl POC Creatinine 1.7 H (0.6-1.3) mg/dl Est Cr Clr Drug Dosing Est GFR ( Amer) ml/min Est GFR (Non-Af Amer) ml/min BUN/Creatinine Ratio (10-20) Glucose (70-99(Fasting)) mg/dl POC Glucose (70-99) mg/dl POC Glucose (other) TNP Calcium (8.5-10.1) mg/dl POC Ioniz Calcium Darell 1.11 L (1.12-1.32) mmol/l Magnesium (1.7-2.4) mg/dl Total Bilirubin (0.2-1.0) mg/dl AST (13-39) U/L ALT (7-52) U/L Alkaline Phosphatase (34-104) U/L Ammonia (18-72) umol/L Troponin I High Sens (0-14) pg/ml Total Protein (6.0-8.3) gm/dl Albumin (3.4-5.0) gm/dl Globulin (2.5-4.0) gm/dl Albumin/Globulin Ratio (0.9-2) Administered Medications Sodium Chloride (Nss 1000ml) 1,000 mls @ 125 mls/hr IV .Q8H TEMI Stop: 09/07/22 07:59 Last Admin: 08/08/22 08:26 Dose: 125 mls/hr Documented By: HERB Discontinued Medications Potassium Chloride (K [place] / Wtr) 10 meq in 100 mls @ 100 mls/hr IV Q1H TEMI Stop: 08/08/22 14:14 Last Admin: 08/08/22 13:58 Dose: 100 mls/hr Documented By: Infusion: 08/08/22 13:58 Dose: 0 mls/hr Documented By: Infusion: 08/08/22 12:06 Dose: 0 mls/hr Documented By: Admin: 08/08/22 11:39 Dose: 100 mls/hr Documented By: HERB Ioversol (Optiray 320 500ml) 120 ml IV ONCE ONE Stop: 08/08/22 08:52 Last Admin: 08/08/22 08:52 Dose: 120 ml Documented By: ANKIT Imaging Data Radiologist's Impression: Chest X-Ray 08/08/22 07:54 SINGLE VIEW CHEST CLINICAL HISTORY: Strokelike symptoms. FINDINGS: An AP, portable, upright chest radiograph is compared to study dated 07/29/2022. Correlation is made with chest CT dated 07/20/2016. The heart is enlarged. The pulmonary vasculature is noncongested. Chronic interstitial thickening is similar to previous. The lungs and pleural spaces are clear noting bibasilar scarring/atelectasis. No pneumothorax is seen. The skeletal structures are osteopenic. The bony thorax is grossly intact. Cholecystectomy clips are seen in the right upper quadrant. IMPRESSION: Cardiomegaly with no active disease in the chest. ACT 112: Negative or not required by law. Electronically signed by: Bravo Moe M.D. 08/08/2022 8:[address] 08/08/22 07:[address] OF THE BRAIN; CT ANGIOGRAM OF THE BRAIN; CT ANGIOGRAM OF THE NECK CLINICAL HISTORY: Strokelike symptoms. Neurological deficit. COMPARISON STUDY: CT of the brain dated 07/29/2022. TECHNIQUE: Unenhanced axial CT scan of the brain is performed. Subsequently, following the IV administration of 120 of Optiray 320, CT angiogram of the head and neck was performed from the aortic arch to the vertex. Images are reviewed in the axial, sagittal, and coronal planes. 3-D MIPS images are created and assessed. IV contrast was administered without complication. All measurements were calculated based on NASCET criteria. A dose lowering technique was utilized adhering to the principles of ALARA. CT DOSE: 1219.90 mGy.cm FINDINGS: Brain parenchyma: The brain parenchyma is normal in appearance. There is no hemorrhage, mass effect, or evidence of acute territorial ischemia by CT criteria. There is no evidence of enhancing mass lesion on the angiogram phase images. The ventricles, sulci, and cisterns are normal in configuration. Newton- white matter differentiation is preserved. No extra-axial fluid collection is seen. Thoracic aorta: There is moderate atherosclerotic calcification of the thoracic aorta. Visualized portions of the thoracic aorta are normal in caliber. The aortic arch demonstrates standard 3-vessel anatomy. Right carotid arterial system: The right common carotid artery is widely patent, as are the right internal and external carotid arteries. Left carotid arterial system: The left common carotid artery is widely patent, as are the left internal and external carotid arteries. Vertebral arteries: The vertebral arteries are widely patent bilaterally and codominant. Subclavian arteries: Widely patent bilaterally. Intracranial vasculature: There is atherosclerotic calcification of the cavernous carotid arteries. The internal carotid arteries are patent at the skull base, as are the anterior and middle cerebral arteries bilaterally. The vertebrobasilar system and posterior cerebral arteries are widely patent. The vertebral arteries are codominant. There is no aneurysm, high-grade stenosis, or focal vessel cut off seen throughout the intracranial circulation. Jugular veins: Patent bilaterally. Dural sinuses: Patent. Lung apices: Nodular opacities measuring up to 1.7 cm are partially visualized in the right upper lobe. Soft tissues: The visualized pharyngeal soft tissues are normal in appearance noting angiographic phase technique. The oropharyngeal airway appears widely patent. The thyroid gland is heterogeneous. The salivary glands are normal in appearance. No cervical lymphadenopathy is seen. Skeletal structures: The skeletal structures are osteopenic. The calvarium appears intact. The cervical spine is maintained noting mild multilevel spondylosis. No lytic or blastic lesion is seen. Orbits: The bony orbits are intact. Orbital contents are normal as visualized noting bilateral ocular lens implants. Sinuses and mastoids: There is a subcentimeter retention cyst in the left maxillary antrum. The remaining paranasal sinuses are clear. The mastoid air cells are well pneumatized. IMPRESSION: 1. There is no hemorrhage, mass effect, or evidence of acute territorial ischemia by CT criteria. 2. Unremarkable CT angiogram of the brain. 3. Unremarkable CT angiogram of the neck. 4. Patchy nodular airspace opacities are partially visualized in the right upper lobe and may represent a mild pneumonitis. Clinical correlation will be required. A follow-up chest CT in 2-3 weeks' time is recommended to document resolution and exclude underlying pulmonary lesion. ACT 112: Positive. There are findings on this exam that require communication between the performing entity and the patient following Patient Test Result Information Act ([place] Act 112) guidelines. Electronically signed by: Braov Moe M.D. 08/08/2022 9:21 AM Head CTA 08/08/22 07:[address] OF THE BRAIN; CT ANGIOGRAM OF THE BRAIN; CT ANGIOGRAM OF THE NECK CLINICAL HISTORY: Strokelike symptoms. Neurological deficit. COMPARISON STUDY: CT of the brain dated 07/29/2022. TECHNIQUE: Unenhanced axial CT scan of the brain is performed. Subsequently, following the IV administration of 120 of Optiray 320, CT angiogram of the head and neck was performed from the aortic arch to the vertex. Images are reviewed in the axial, sagittal, and coronal planes. 3-D MIPS images are created and assessed. IV contrast was administered without complication. All measurements were calculated based on NASCET criteria. A dose lowering technique was utilized adhering to the principles of ALARA. CT DOSE: 1219.90 mGy.cm FINDINGS: Brain parenchyma: The brain parenchyma is normal in appearance. There is no hemorrhage, mass effect, or evidence of acute territorial ischemia by CT criteria. There is no evidence of enhancing mass lesion on the angiogram phase images. The ventricles, sulci, and cisterns are normal in configuration. Newton- white matter differentiation is preserved. No extra-axial fluid collection is seen. Thoracic aorta: There is moderate atherosclerotic calcification of the thoracic aorta. Visualized portions of the thoracic aorta are normal in caliber. The aortic arch demonstrates standard 3-vessel anatomy. Right carotid arterial system: The right common carotid artery is widely patent, as are the right internal and external carotid arteries. Left carotid arterial system: The left common carotid artery is widely patent, as are the left internal and external carotid arteries. Vertebral arteries: The vertebral arteries are widely patent bilaterally and codominant. Subclavian arteries: Widely patent bilaterally. Intracranial vasculature: There is atherosclerotic calcification of the cavernous carotid arteries. The internal carotid arteries are patent at the skull base, as are the anterior and middle cerebral arteries bilaterally. The vertebrobasilar system and posterior cerebral arteries are widely patent. The vertebral arteries are codominant. There is no aneurysm, high-grade stenosis, or focal vessel cut off seen throughout the intracranial circulation. Jugular veins: Patent bilaterally. Dural sinuses: Patent. Lung apices: Nodular opacities measuring up to 1.7 cm are partially visualized in the right upper lobe. Soft tissues: The visualized pharyngeal soft tissues are normal in appearance noting angiographic phase technique. The oropharyngeal airway appears widely patent. The thyroid gland is heterogeneous. The salivary glands are normal in appearance. No cervical lymphadenopathy is seen. Skeletal structures: The skeletal structures are osteopenic. The calvarium appears intact. The cervical spine is maintained noting mild multilevel spondylosis. No lytic or blastic lesion is seen. Orbits: The bony orbits are intact. Orbital contents are normal as visualized noting bilateral ocular lens implants. Sinuses and mastoids: There is a subcentimeter retention cyst in the left maxillary antrum. The remaining paranasal sinuses are clear. The mastoid air cells are well pneumatized. IMPRESSION: 1. There is no hemorrhage, mass effect, or evidence of acute territorial ischemia by CT criteria. 2. Unremarkable CT angiogram of the brain. 3. Unremarkable CT angiogram of the neck. 4. Patchy nodular airspace opacities are partially visualized in the right upper lobe and may represent a mild pneumonitis. Clinical correlation will be required. A follow-up chest CT in 2-3 weeks' time is recommended to document resolution and exclude underlying pulmonary lesion. ACT 112: Positive. There are findings on this exam that require communication between the performing entity and the patient following Patient Test Result Information Act ([place] Act 112) guidelines. Electronically signed by: Bravo Moe M.D. 08/08/2022 9:21 AM Neck CTA 08/08/22 07:[address] OF THE BRAIN; CT ANGIOGRAM OF THE BRAIN; CT ANGIOGRAM OF THE NECK CLINICAL HISTORY: Strokelike symptoms. Neurological deficit. COMPARISON STUDY: CT of the brain dated 07/29/2022. TECHNIQUE: Unenhanced axial CT scan of the brain is performed. Subsequently, following the IV administration of 120 of Optiray 320, CT angiogram of the head and neck was performed from the aortic arch to the vertex. Images are reviewed i n the axial, sagittal, and coronal planes. 3-D MIPS images are created and assessed. IV contrast was administered without complication. All measurements were calculated based on NASCET criteria. A dose lowering technique was utilized adhering to the principles of ALARA. CT DOSE: 1219.90 mGy.cm FINDINGS: Brain parenchyma: The brain parenchyma is normal in appearance. There is no hemorrhage, mass effect, or evidence of acute territorial ischemia by CT criteria. There is no evidence of enhancing mass lesion on the angiogram phase images. The ventricles, sulci, and cisterns are normal in configuration. Newton- white matter differentiation is preserved. No extra-axial fluid collection is seen. Thoracic aorta: There is moderate atherosclerotic calcification of the thoracic aorta. Visualized portions of the thoracic aorta are normal in caliber. The aortic arch demonstrates standard 3-vessel anatomy. Right carotid arterial system: The right common carotid artery is widely patent, as are the right internal and external carotid arteries. Left carotid arterial system: The left common carotid artery is widely patent, as are the left internal and external carotid arteries. Vertebral arteries: The vertebral arteries are widely patent bilaterally and codominant. Subclavian arteries: Widely patent bilaterally. Intracranial vasculature: There is atherosclerotic calcification of the cavernous carotid arteries. The internal carotid arteries are patent at the skul l base, as are the anterior and middle cerebral arteries bilaterally. The vertebrobasilar system and posterior cerebral arteries are widely patent. The vertebral arteries are codominant. There is no aneurysm, high-grade stenosis, or focal vessel cut off seen throughout the intracranial circulation. Jugular veins: Patent bilaterally. Dural sinuses: Patent. Lung apices: Nodular opacities measuring up to 1.7 cm are partially visualized in the right upper lobe. Soft tissues: The visualized pharyngeal soft tissues are normal in appearance noting angiographic phase technique. The oropharyngeal airway appears widely patent. The thyroid gland is heterogeneous. The salivary glands are normal in a ppearance. No cervical lymphadenopathy is seen. Skeletal structures: The skeletal structures are osteopenic. The calvarium appears intact. The cervical spine is maintained noting mild multilevel spondylosis. No lytic or blastic lesion is seen. Orbits: The bony orbits are intact. Orbital contents are normal as visualized noting bilateral ocular lens implants. Sinuses and mastoids: There is a subcentimeter retention cyst in the left maxillary antrum. The remaining paranasal sinuses are clear. The mastoid air cells are well pneumatized. IMPRESSION: 1. There is no hemorrhage, mass effect, or evidence of acute territorial ischemia by CT criteria. 2. Unremarkable CT angiogram of the brain. 3. Unremarkable CT angiogram of the neck. 4. Patchy nodular airspace opacities are partially visualized in the right upper lobe and may represent a mild pneumonitis. Clinical correlation will be required. A follow-up chest CT in 2-3 weeks' time is recommended to document resolution and exclude underlying pulmonary lesion. ACT 112: Positive. There are findings on this exam that require communication between the performing entity and the patient following Patient Test Result Information Act ([place] Act 112) guidelines. Electronically signed by: Bravo Moe M.D. 08/08/2022 9:21 AM Discharge Plan Visit Data Chief Complaint: Stroke/CVA Symptoms Stated Complaint: STROKE SX ED Provider: Elana Mon Discharge Problem: Altered mental status, Hepatic encephalopathy, Right sided weakness, MARY ELLEN (acute kidney injury), Hyperammonemia Patient Disposition: Admitted As Inpatient Discharge Instructions Interventions: ED Discharge Assessment Last Done: 08/08/22 14:13
--- NOTE | 2022-08-08 10:57 | History & Physical Report ---
Date of Service August 08, 2022 Assessment & Plan (1) Hepatic encephalopathy: Plan: - Patient with ammonia of 100, AST 74, reports she stopped lactulose a few days ago, reason unknown. On last admission she had stopped lactulose due to nausea from it. - Currently unable to tolerate PO, therefore will order lactulose enemas Q8h. -CT elevated and BNP 240, will obtain VBG. - Repeat ammonia in AM and follow for clinical evidence of improving mental status. - When tolerating PO, titrate lactulose and rifaximin for 3-5 BM/daily. - Hold nadolol for today to allow for permissive HTN in case of stroke causing her altered status and right swided weakness. (2) MARY ELLEN (acute kidney injury): Plan: - Cr 1.69, baseline 0.8-1.1. Suspect due to being overdiuresed, as well as possibly poor PO intake if having nausea from lactulose. - NSS 125 cc/hr, watch cautiously for evidence of volume overload. CXR without any evidence of congestion or edema, legs without edema. - Avoid nephrotoxins, renally dose medications as able. - Replace potassium K riders ordered in ED with KCl 20 mEq BID in addition to this. - BMP Q8h x1 day. (3) Right sided weakness: Plan: - Reports of reduced responsiveness, right sided weakness at facility this AM, she seems overall weak with possible right > left weakness in upper extremity, reduced burn crew member strength. - Head CT unremarkable, CTA of head and neck without significant stenosis. - Suspect hepatic encephalopathy is the major issue causing her decreased mental status and overall weakness along with MARY ELLEN likely from overdiuresis and poor po intake. - MRI, routine, tomorrow. - Echo in a.m. - CBC, BMP, HbA1c, PT/INR, lipid panel in a.m. - N.p.o. for now. - PT, OT, ST to evaluate in a.m. - Avoid hypotension, hypoglycemia. - Telemetry for 24 hours, evaluate for episodes of atrial fibrillation. (4) Chronic diastolic heart failure: Plan: - Echo 05/10: Grade 1 diastolic dysfunction, EF60-65%, no significant valvular disease. - Holding torsemide and spironolactone for MARY ELLEN, concerns of overdiuresis. Monitor volume status closely. (5) Depression: Plan: - Continue duloxetine. (6) DM2 (diabetes mellitus, type 2): Plan: - Continue home insulin with SSI. Accuchecks ACHS. (7) GARRETT on CPAP: Plan: - CPAP HS and prn. (8) HTN (hypertension): Plan: - ON d/c 08/02 her lisinopril was held. - Will retstart nadolol for liver/BP tomorrow, for now allow for permissive HTn in case this was a stroke. (9) HLD (hyperlipidemia): Plan: - Continue statin. (10) GERD (gastroesophageal reflux disease): Plan: - Continue pantoprazole daily. Plan - Admit to PCU. - SCDs, Heparin for VTE ppx. - Full Code. History of Present Illness Chief Complaint: reduced consciousness, right sided weakness since this morning Primary Care Provider: Alana Peres MD Indu Carbone is a 67-year-old female with a past medical history significant for diastolic heart failure, IDDM, hypertension, hyperlipidemia, CKD, SMALL cirrhosis, GERD, gastroparesis, and depression with anxiety is presenting today from [facility]. She has been there for the last week since discharge on 08/02 from our facility. Yesterday she had mentioned feeling generally unwell without any specific complaints. This morning staff by palpation and patient was found to be minimally responsive. EMS was summoned, BSG on arrival 87 and right-sided weakness had been noted along with minimal responsiveness. On arrival patient is drowsy with reduced consciousness but arousable, can follow some basic commands such as wiggling toes, squeezing fingers, but is alert and oriented x0. Voices no specific complaints. Vital signs within normal limits. Labs notable for potassium slightly low at 3.2, chloride 90, CO2 40, BUN 43, at baseline but creatinine elevated 1.69, baseline 0.81.0. Glucose elevated here at 175, chronically elevated T bili at 1.1, AST 74 and ammonia 100. Her troponin is 24.3. Head CT without hemorrhage, mass-effect or evidence of acute territorial ischemia, CTA of the head and neck unremarkable. There is patchy nodular airspa ce opacities are partially visualized in the right upper lobe and may represent a mild pneumonitis. Clinical correlation will be required. A follow-up chest CT in 2-3 weeks' time is recommended to document resolution and exclude underlying pulmonary lesion. CXR shows cardiomegaly without active disease in the chest. Allergies Allergy/AdvReac Type Severity Reaction Status Date / Time ciprofloxacin Allergy Intermediate MOUTH Verified 07/29/22 11:27 BLISTERS, HIVES morphine Allergy Intermediate HIVES, Verified 07/29/22 11:27 "DEATHLY ILL", THROWS UP oxycodone Allergy Intermediate HIVES, Verified 07/29/22 11:27 VOMITING penicillin V Allergy Intermediate HIVES Verified 07/29/22 11:27 Home Medications Medication Instructions Recorded Confirmed Type nitroglycerin 0.4 mg sublingual 0.4 mg sublingual UD PRN Chest Pain 10/10/18 08/08/22 History tablet (Nitrostat) rosuvastatin 40 mg tablet 40 mg PO .HS UD 10/10/18 08/08/22 History lancets (OneTouch UltraSoft #100 ea 04/05/20 08/08/22 History Lancets) flash glucose scanning reader #1 ea 06/05/20 08/08/22 Rx (Eurocept Courtney 2 [place]) BD Ultra-Fine Mini Pen Needle 31 #300 ea 10/30/20 08/08/22 Rx gauge x 3/16" (pen needle, diabetic) nadolol 20 mg tablet 10 mg PO QAM 10/11/21 08/08/22 History albuterol sulfate 90 mcg/actuation 2 puff inhalation Q4 PRN Shortness 12/20/21 08/08/22 Rx aerosol inhaler (ProAir HFA) Of Breath Or Wheezing #8.5 grams potassium chloride 10 mEq 10 meq PO 3XWK 03/26/22 08/08/22 History tablet,extended release spironolactone 100 mg tablet 100 mg PO DAILY 03/26/22 08/08/22 History Shower Chair #1 ea 03/28/22 08/08/22 Rx omeprazole 40 mg capsule,delayed 40 mg PO QAM #90 caps 04/21/22 08/08/22 Rx release duloxetine 60 mg capsule,delayed 60 mg PO HS 05/10/22 08/08/22 History release cranberry fruit 450 mg tablet 450 mg PO DAILY 05/16/22 08/08/22 History (cranberry) insulin regular hum U-500 conc 500 See Rx Instructions .Route .COMPLEX 05/16/22 08/08/22 History unit/mL(3 mL) subcut pen (Humulin R U-500 (Conc) Insulin Kwikpen) magnesium hydroxide 400 mg/5 mL 60 ml PO DAILY PRN constipation 05/20/22 07/29/22 Rx oral suspension (Milk of Magnesia) #355 mL torsemide 40 mg tablet 40 mg PO QAM #90 tabs 06/10/22 08/08/22 Rx sertraline 50 mg tablet (Zoloft) 50 mg PO DAILY 06/27/22 08/08/22 History blood sugar diagnostic #100 ea 07/01/22 08/08/22 Rx flash glucose sensor (FreeStyle #2 ea 07/01/22 08/08/22 Rx Courtney 2 Sensor kit) ondansetron 4 mg disintegrating 4 mg PO Q8 PRN Nausea 07/14/22 08/08/22 History tablet lactulose 20 gram oral packet 20 g PO BID 30 days #30 ea 07/17/22 08/08/22 Rx rifaximin 550 mg tablet (Xifaxan) 550 mg PO BID 30 days #60 tabs 07/17/22 08/08/22 Rx miscellaneous medical supply #1 ea 07/25/22 08/08/22 Rx diclofenac sodium 1 % topical gel 2 g topical QID #100 grams 07/28/22 08/08/22 Rx (Voltaren Arthritis Pain) lidocaine 5 % topical patch 1 patch transdermal QAM #7 ea 08/02/22 08/08/22 Rx carbidopa 10 mg-levodopa 100 mg 1 tab TID 08/08/22 08/08/22 History tablet ezetimibe 10 mg tablet mg 08/08/22 History Past Med/Surg History Medical History Acute alteration in mental status Acute metabolic encephalopathy Cancer UTERINE CANCER SKIN CANCER Cardiac murmur Chronic kidney disease STAGE 3-4? F/U PCP Congestive heart failure Constipation Diffuse myofascial pain syndrome Diverticular disease DM2 (diabetes mellitus, type 2) IDDM Fall Fatty liver PER PT ROME (generalized anxiety disorder) Gastroparesis GERD (gastroesophageal reflux disease) History of anesthesia reaction difficulty waking [facility]no issues now HLD (hyperlipidemia) HTN (hypertension) Hx MRSA infection Hypokalemia IBS (irritable bowel syndrome) Migraine Morbid obesity with BMI of 45.0-49.9, adult Nausea and vomiting after administration of anesthetic agent Occasional tremors AT NIGHT GARRETT on CPAP Osteoarthritis Serum ammonia increased Surgical History Cancer MELANOMA SIDE LEFT FACE-EXCISION H/O esophagogastroduodenoscopy H/O eye surgery LASER RT/LEFT FOR HIGH PRESSURE History of appendectomy History of bladder surgery BLADDER TACK History of colonoscopy History of left heart catheterization (LHC) "normal 2001" History of tooth extraction History of total knee replacement RIGHT S/P cholecystectomy S/P [facility]BS[facility] 1983 Family History Father Diabetes Sister Ovarian cancer Family history of diabetes mellitus Sister Family history of diabetes mellitus Mother Breast cancer Family history of reaction to anesthesia slow to wake--n/v Grandmother (Maternal) Myocardial infarction Uncle Prostate cancer Other Cancer Gallbladder disease Heart disease Hypertension Lung disease Denies family history of Colon cancer Social History Smoking Status: Unknown if ever smoked Second Hand Exposure: No; Hx Alcohol Use: No Hx Substance Use: No Preferred Language: Swiss Communication Ability: Effective Visual Impairment: No Limitations Hearing Ability: Normal Phone Engineer Required: No Beliefs That Will Affect Care: None marital status: Current Living Situation: Alone Current Living Situation Comment: roommate at independent living facility current occupational status: retired 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 Feels Safe at Home: Yes Childhood Exposure to Second-Hand Smoke: Yes Dental Care, Regularly: Yes Physical Activity Frequency: 3-4 Times per Week Seatbelt Use: always Sunscreen Use: Yes Assistive Devices: Raised Toilet Seat and Wheelchair Review of Systems Review of Systems: Unobtainable due to reduced consciousness Physical Exam Physical Exam: General: drowsy but arousable, AAO x0; on RA, old contusion noted on right eye, was present on last admission when I had admitted her 07/29 Head: Normocephalic, atraumatic ENT: PERRL, EOMI, no pharyngeal exudate, mucous membranes moist Chest: Clear to auscultation, on room air, no adventitious breath sounds Cardiac: Regular rate and rhythm, murmur noted, no JVD, normal peripheral pulses, good capillary refill Abdominal: NABS x 4 quadrants, soft, nontender to palpation, no rebound, guarding or tenderness Extremities: Normal inspection, no peripheral edema or erythema, calfs nontender to palpation Psych: Normal mood and affect Neuro: strength difficult to assess given reduced alertness but moving all 4 extremities, burn crew member strength, right arm strength slightly less than left; speech is slurred but suspect due moreso to reduced mental status, no facial droop present Skin: no rash or erythema Results & Data Results & Data ([facility]) Vital Signs (Past 12 Hours) Vital Signs Temp Pulse Resp BP Pulse Ox O2 Del Method 08/08/22 08:28 Room Air 08/08/22 07:18 35.7 C L 78 17 138/69 94 Room Air Laboratory Results Abnormal lab results 08/08/22 08/08/22 08/08/22 Range/Units 07:50 08:08 08:08 POC Hgb (12.0-16.0) g/dl POC Hct (37-47) % Neut # (Auto) (1.4-6.5) K/uL [place] # (Auto) (0.24-0.82) K/uL Immature Gran # (Auto) (0.00-0.02) K/uL POC Potassium (3.3-5.0) mmol/L Potassium 3.2 L (3.5-5.1) mmol/L POC Chloride (101-112) mmol/L Chloride 90 L (98-107) mmol/L Carbon Dioxide 40 H (21-32) mmol/L POC Total CO2 (24-31) mmol/L POC Anion Gap (16-25) mmol/L POC BUN (7-18) mg/dl BUN 43 H (6-23) mg/dl Creatinine 1.69 H (0.6-1.2) mg/dl POC Creatinine (0.6-1.3) mg/dl BUN/Creatinine Ratio 25.4 H (10-20) Glucose 175 H (70-99(Fasting)) mg/dl POC Glucose 233 H (70-99) mg/dl POC Ioniz Calcium Darell (1.12-1.32) mmol/l Total Bilirubin 1.1 H (0.2-1.0) mg/dl AST 74 H (13-39) U/L Ammonia 100.0 H (18-72) umol/L Troponin I High Sens 24.3 H (0-14) pg/ml Albumin 3.2 L (3.4-5.0) gm/dl Globulin 4.5 H (2.5-4.0) gm/dl Albumin/Globulin Ratio 0.7 L (0.9-2) 08/08/22 08/08/22 Range/Units 08:18 08:18 POC Hgb 16.7 H (12.0-16.0) g/dl POC Hct 49 H (37-47) % Neut # (Auto) 7.66 H (1.4-6.5) K/uL [place] # (Auto) 1.33 H (0.24-0.82) K/uL Immature Gran # (Auto) 0.03 H (0.00-0.02) K/uL POC Potassium 3.1 L (3.3-5.0) mmol/L Potassium (3.5-5.1) mmol/L POC Chloride 88 L (101-112) mmol/L Chloride (98-107) mmol/L Carbon Dioxide (21-32) mmol/L POC Total CO2 > 40 H* (24-31) mmol/L POC Anion Gap 12.0 L (16-25) mmol/L POC BUN 43 H (7-18) mg/dl BUN (6-23) mg/dl Creatinine (0.6-1.2) mg/dl POC Creatinine 1.7 H (0.6-1.3) mg/dl BUN/Creatinine Ratio (10-20) Glucose (70-99(Fasting)) mg/dl POC Glucose (70-99) mg/dl POC Ioniz Calcium Darell 1.11 L (1.12-1.32) mmol/l Total Bilirubin (0.2-1.0) mg/dl AST (13-39) U/L Ammonia (18-72) umol/L Troponin I High Sens (0-14) pg/ml Albumin (3.4-5.0) gm/dl Globulin (2.5-4.0) gm/dl Albumin/Globulin Ratio (0.9-2) Diagnostic Findings Chest X-Ray 08/08/22 07:54 SINGLE VIEW CHEST CLINICAL HISTORY: Strokelike symptoms. FINDINGS: An AP, portable, upright chest radiograph is compared to study dated 07/29/2022. Correlation is made with chest CT dated 07/20/2016. The heart is enlarged. The pulmonary vasculature is noncongested. Chronic interstitial thickening is similar to previous. The lungs and pleural spaces are clear noting bibasilar scarring/atelectasis. No pneumothorax is seen. The skeletal structures are osteopenic. The bony thorax is grossly intact. Cholecystectomy clips are seen in the right upper quadrant. IMPRESSION: Cardiomegaly with no active disease in the chest. ACT 112: Negative or not required by law. Electronically signed by: Bravo Moe M.D. 08/08/2022 8:[address] 08/08/22 07:[address] OF THE BRAIN; CT ANGIOGRAM OF THE BRAIN; CT ANGIOGRAM OF THE NECK CLINICAL HISTORY: Strokelike symptoms. Neurological deficit. COMPARISON STUDY: CT of the brain dated 07/29/2022. TECHNIQUE: Unenhanced axial CT scan of the brain is performed. Subsequently, following the IV administration of 120 of Optiray 320, CT angiogram of the head and neck was performed from the aortic arch to the vertex. Images are reviewed in the axial, sagittal, and coronal planes. 3-D MIPS images are created and assessed. IV contrast was administered without complication. All measurements were calculated based on NASCET criteria. A dose lowering technique was utilized adhering to the principles of ALARA. CT DOSE: 1219.90 mGy.cm FINDINGS: Brain parenchyma: The brain parenchyma is normal in appearance. There is no hemorrhage, mass effect, or evidence of acute territorial ischemia by CT criteria. There is no evidence of enhancing mass lesion on the angiogram phase images. The ventricles, sulci, and cisterns are normal in configuration. Newton- white matter differentiation is preserved. No extra-axial fluid collection is seen. Thoracic aorta: There is moderate atherosclerotic calcification of the thoracic aorta. Visualized portions of the thoracic aorta are normal in caliber. The aortic arch demonstrates standard 3-vessel anatomy. Right carotid arterial system: The right common carotid artery is widely patent, as are the right internal and external carotid arteries. Left carotid arterial system: The left common carotid artery is widely patent, as are the left internal and external carotid arteries. Vertebral arteries: The vertebral arteries are widely patent bilaterally and codominant. Subclavian arteries: Widely patent bilaterally. Intracranial vasculature: There is atherosclerotic calcification of the cavernous carotid arteries. The internal carotid arteries are patent at the skull base, as are the anterior and middle cerebral arteries bilaterally. The vertebrobasilar system and posterior cerebral arteries are widely patent. The vertebral arteries are codominant. There is no aneurysm, high-grade stenosis, or focal vessel cut off seen throughout the intracranial circulation. Jugular veins: Patent bilaterally. Dural sinuses: Patent. Lung apices: Nodular opacities measuring up to 1.7 cm are partially visualized in the right upper lobe. Soft tissues: The visualized pharyngeal soft tissues are normal in appearance noting angiographic phase technique. The oropharyngeal airway appears widely patent. The thyroid gland is heterogeneous. The salivary glands are normal in appearance. No cervical lymphadenopathy is seen. Skeletal structures: The skeletal structures are osteopenic. The calvarium appears intact. The cervical spine is maintained noting mild multilevel spondylosis. No lytic or blastic lesion is seen. Orbits: The bony orbits are intact. Orbital contents are normal as visualized noting bilateral ocular lens implants. Sinuses and mastoids: There is a subcentimeter retention cyst in the left maxillary antrum. The remaining paranasal sinuses are clear. The mastoid air cells are well pneumatized. IMPRESSION: 1. There is no hemorrhage, mass effect, or evidence of acute territorial ischemia by CT criteria. 2. Unremarkable CT angiogram of the brain. 3. Unremarkable CT angiogram of the neck. 4. Patchy nodular airspace opacities are partially visualized in the right upper lobe and may represent a mild pneumonitis. Clinical correlation will be required. A follow-up chest CT in 2-3 weeks' time is recommended to document resolution and exclude underlying pulmonary lesion. ACT 112: Positive. There are findings on this exam that require communication between the performing entity and the patient following Patient Test Result Information Act ([place] Act 112) guidelines. Electronically signed by: Bravo Moe M.D. 08/08/2022 9:21 AM Head CTA 08/08/22 07:[address] OF THE BRAIN; CT ANGIOGRAM OF THE BRAIN; CT ANGIOGRAM OF THE NECK CLINICAL HISTORY: Strokelike symptoms. Neurological deficit. COMPARISON STUDY: CT of the brain dated 07/29/2022. TECHNIQUE: Unenhanced axial CT scan of the brain is performed. Subsequently, following the IV administration of 120 of Optiray 320, CT angiogram of the head and neck was performed from the aortic arch to the vertex. Images are reviewed in the axial, sagittal, and coronal planes. 3-D MIPS images are created and assessed. IV contrast was administered without complication. All measurements were calculated based on NASCET criteria. A dose lowering technique was utilized adhering to the principles of ALARA. CT DOSE: 1219.90 mGy.cm FINDINGS: Brain parenchyma: The brain parenchyma is normal in appearance. There is no hemorrhage, mass effect, or evidence of acute territorial ischemia by CT criteria. There is no evidence of enhancing mass lesion on the angiogram phase images. The ventricles, sulci, and cisterns are normal in configuration. Newton- white matter differentiation is preserved. No extra-axial fluid collection is seen. Thoracic aorta: There is moderate atherosclerotic calcification of the thoracic aorta. Visualized portions of the thoracic aorta are normal in caliber. The aortic arch demonstrates standard 3-vessel anatomy. Right carotid arterial system: The right common carotid artery is widely patent, as are the right internal and external carotid arteries. Left carotid arterial system: The left common carotid artery is widely patent, as are the left internal and external carotid arteries. Vertebral arteries: The vertebral arteries are widely patent bilaterally and codominant. Subclavian arteries: Widely patent bilaterally. Intracranial vasculature: There is atherosclerotic calcification of the cavernous carotid arteries. The internal carotid arteries are patent at the skull base, as are the anterior and middle cerebral arteries bilaterally. The vertebrobasilar system and posterior cerebral arteries are widely patent. The vertebral arteries are codominant. There is no aneurysm, high-grade stenosis, or focal vessel cut off seen throughout the intracranial circulation. Jugular veins: Patent bilaterally. Dural sinuses: Patent. Lung apices: Nodular opacities measuring up to 1.7 cm are partially visualized in the right upper lobe. Soft tissues: The visualized pharyngeal soft tissues are normal in appearance noting angiographic phase technique. The oropharyngeal airway appears widely patent. The thyroid gland is heterogeneous. The salivary glands are normal in appearance. No cervical lymphadenopathy is seen. Skeletal structures: The skeletal structures are osteopenic. The calvarium appears intact. The cervical spine is maintained noting mild multilevel spondylosis. No lytic or blastic lesion is seen. Orbits: The bony orbits are intact. Orbital contents are normal as visualized noting bilateral ocular lens implants. Sinuses and mastoids: There is a subcentimeter retention cyst in the left maxillary antrum. The remaining paranasal sinuses are clear. The mastoid air cells are well pneumatized. IMPRESSION: 1. There is no hemorrhage, mass effect, or evidence of acute territorial ischemia by CT criteria. 2. Unremarkable CT angiogram of the brain. 3. Unremarkable CT angiogram of the neck. 4. Patchy nodular airspace opacities are partially visualized in the right upper lobe and may represent a mild pneumonitis. Clinical correlation will be required. A follow-up chest CT in 2-3 weeks' time is recommended to document resolution and exclude underlying pulmonary lesion. ACT 112: Positive. There are findings on this exam that require communication between the performing entity and the patient following Patient Test Result Information Act ([place] Act 112) guidelines. Electronically signed by: Bravo Moe M.D. 08/08/2022 9:21 AM Neck CTA 08/08/22 07:[address] OF THE BRAIN; CT ANGIOGRAM OF THE BRAIN; CT ANGIOGRAM OF THE NECK CLINICAL HISTORY: Strokelike symptoms. Neurological deficit. COMPARISON STUDY: CT of the brain dated 07/29/2022. TECHNIQUE: Unenhanced axial CT scan of the brain is performed. Subsequently, following the IV administration of 120 of Optiray 320, CT angiogram of the head and neck was performed from the aortic arch to the vertex. Images are reviewed in the axial, sagittal, and coronal planes. 3-D MIPS images are created and assessed. IV contrast was administered without complication. All measurements were calculated based on NASCET criteria. A dose lowering technique was utilized adhering to the principles of ALARA. CT DOSE: 1219.90 mGy.cm FINDINGS: Brain parenchyma: The brain parenchyma is normal in appearance. There is no hemorrhage, mass effect, or evidence of acute territorial ischemia by CT criteria. There is no evidence of enhancing mass lesion on the angiogram phase images. The ventricles, sulci, and cisterns are normal in configuration. Newton- white matter differentiation is preserved. No extra-axial fluid collection is seen. Thoracic aorta: There is moderate atherosclerotic calcification of the thoracic aorta. Visualized portions of the thoracic aorta are normal in caliber. The aortic arch demonstrates standard 3-vessel anatomy. Right carotid arterial system: The right common carotid artery is widely patent, as are the right internal and external carotid arteries. Left carotid arterial system: The left common carotid artery is widely patent, as are the left internal and external carotid arteries. Vertebral arteries: The vertebral arteries are widely patent bilaterally and codominant. Subclavian arteries: Widely patent bilaterally. Intracranial vasculature: There is atherosclerotic calcification of the cavernous carotid arteries. The internal carotid arteries are patent at the skull base, as are the anterior and middle cerebral arteries bilaterally. The vertebrobasilar system and posterior cerebral arteries are widely patent. The vertebral arteries are codominant. There is no aneurysm, high-grade stenosis, or focal vessel cut off seen throughout the intracranial circulation. Jugular veins: Patent bilaterally. Dural sinuses: Patent. Lung apices: Nodular opacities measuring up to 1.7 cm are partially visualized in the right upper lobe. Soft tissues: The visualized pharyngeal soft tissues are normal in appearance noting angiographic phase technique. The oropharyngeal airway appears widely patent. The thyroid gland is heterogeneous. The salivary glands are normal in appearance. No cervical lymphadenopathy is seen. Skeletal structures: The skeletal structures are osteopenic. The calvarium appears intact. The cervical spine is maintained noting mild multilevel spondylosis. No lytic or blastic lesion is seen. Orbits: The bony orbits are intact. Orbital contents are normal as visualized noting bilateral ocular lens implants. Sinuses and mastoids: There is a subcentimeter retention cyst in the left maxillary antrum. The remaining paranasal sinuses are clear. The mastoid air cells are well pneumatized. IMPRESSION: 1. There is no hemorrhage, mass effect, or evidence of acute territorial ischemia by CT criteria. 2. Unremarkable CT angiogram of the brain. 3. Unremarkable CT angiogram of the neck. 4. Patchy nodular airspace opacities are partially visualized in the right upper lobe and may represent a mild pneumonitis. Clinical correlation will be required. A follow-up chest CT in 2-3 weeks' time is recommended to document resolution and exclude underlying pulmonary lesion. ACT 112: Positive. There are findings on this exam that require communication between the performing entity and the patient following Patient Test Result Information Act ([place] Act 112) guidelines. Electronically signed by: Bravo Moe M.D. 08/08/2022 9:21 AM ECG Additional Comments: Normal sinus rhythm Left ventricular hypertrophy with repolarization abnormality Cannot rule out Septal infarct , age undetermined Lateral infarct (cited on or before 08-AUG-2022) Abnormal ECG When compared with ECG of 29-JUL-2022 04:53, No significant change was found. Code Status & VTE Plan Code Status Full Code. Supervising Physician Co-Signing Physician Notes Patient seen and examined, chart reviewed, case discussed with Rola Denny PA-C and I agree with the assessment and plan as above except as otherwise noted Labs and images reviewed Indu is a 67-year-old female the past medical history of CKD, chronic diastolic heart failure grade 1, type II DM on insulin, GARRETT on CPAP, hypertension, hyperlipidemia, anxiety, IBS, GERD who presents from [facility] for generalized weakness, feeling unwell, and with reduced consciousness this morning. Patient was initially suspected to be hypoglycemic at [facility], BSG was 87 on EMS evaluation there was concern for worsening right-sided weakness with unknown last known well. Patient was recently discharged 08/02 after admission for recurrent falls and weakness, weakness was ultimately felt to be multifactorial with high ammonia, volume depletion with poor intake and nausea due to lactulose, and concern for basal ganglier disease presenting with atypical parkinsonism. Was seen by neurology and was recommended to trial Sinemet. Creatinine kinase was normal during that admission, low suspicion for myopathy. On admitting exam patient is awake, but with increased speech latency and significant delay and following one-step commands. Does squeeze hands and wiggle toes with encouragement. Denies pain/complaints, but offers little spontaneous speech other than "yes/no". She does not verbalize orientation to place or year, does affirm name. Does not grimace to abdominal palpation. Lungs are clear. Heart rate is regular, systolic murmur is appreciated on exam. Lower extremities are without pitting edema and JVD is not appreciated at bedside. Collateral collected from record review. Patient with diastolic heart failure, but overall feels clinically dry and has had worsened p.o. intake with nausea due to lactulose. Has not taken lactulose in several days, altered mental status likely multifactorial with increasing ammonia superimposed on volume depletion/MARY ELLEN, and patient with background hypercapnia due to sleep apnea with GARRETT with a acutely elevated bicarb of 40 above her previous baseline of low 30s. ABG is pending. We will complete stroke work-up with MRI, exam is somewhat limited by patient engagement right burn crew member strength is slightly weaker than left and right lip is with a slight facial droop. Patient has been able to tolerate oral lactulose, will continue with lactulose enema at this time. We will continue gentle hydration and follow for signs of fluid overload. CPAP at night and as needed, if VBG with significant acute on chronic respiratory acidosis we will place on CPAP/BiPAP and adjust MV to maintain normal pH. Continue Xifaxan. Hold torsemide due to hypovolemia. Spironolactone held in the setting of MARY ELLEN. Potassium being repleted, will likely need additional repletion with enemas and poor p.o. intake, will trend BMP every 8 hours for now and follow on medical telemetry. Agree with management of chronic medical issues above. PG Care Time/CCT Total # of Minutes Spent Total Time Spent with Patient: Total time spent is greater than 50% in coordination of care (as documented) at patient's floor/unit and/or counseling patient: Coding Level of Care Code 69161 INT INP/OBS CARE 3/75MIN Diagnoses Hepatic encephalopathy K76.82 MARY ELLEN (acute kidney injury) N17.9 Right sided weakness R53.1 Chronic diastolic heart failure I50.32 Depression F32.9 DM2 (diabetes mellitus, type 2) E11.9 GARRETT on CPAP G47.33; Z99.89 HTN (hypertension) I10 HLD (hyperlipidemia) E78.5 GERD (gastroesophageal reflux disease) K21.9
[2022-08-08] MEDS: POTASSIUM CHLORIDE / WTR 10 MEQ/100 ML PLCT IV SCH ×3 (11:39→17:41)
[2022-08-08 12:09] LABS: Influenza A virus by PCR Negative (Neg); Influenza B virus by PCR Negative (Neg); RSV by PCR Negative (Neg); SARS CoV2 RNA(COVID-19) Ceph NEGATIVE (Negative)
--- NOTE | 2022-08-08 13:08 | Magnetic Resonance Report ---
Brain MRI WITHOUT CONTRAST HISTORY: Right facial droop and weakness. strokelike symptoms TECHNIQUE: Multiplanar multisequence MRI of the brain was performed without the use of contrast. COMPARISON STUDY: Head CT 08/08/2022. Brain MRI 05/11/2022. FINDINGS: Suboptimal evaluation due to the motion artifact. There is a subcentimeter linear focus of restricted diffusion seen within the periventricular white matter of the right occipital lobe on imag e 14. This could represent a small acute infarct. No additional areas of restricted diffusion identif ied within the brain. The midline structures are intact. There is no mass, hematoma, midline shift. T he ventricles and sulci are within normal limits for age. Mild periventricular white matter T2 hyperi ntensity is nonspecific but favors microvascular ischemic change. This is similar to the prior study. The major vascular flow-voids at the skull base are well-maintained. Prior bilateral lens replacemen t. The paranasal sinuses and mastoid air cells are clear. IMPRESSION: 1. Suboptimal evaluation due to the motion artifact. 2. A 9 mm linear focus of restricted diffusion within the periventricular white matter of the right o ccipital lobe. This may represent a small acute infarct. . 3. No acute intracranial hemorrhage. ACT 112: Negative or not required by law. Electronically signed by: Modesto Toro M.D. 08/08/2022 1:07 PM
[2022-08-08 13:18] LABS: Base Excess VBG 16.5 mEq/L; HCO3 VBG 41 mmol/L; Oxygen Saturation VBG 83.9 %; PCO2 VBG 47 mmHg (38-50); PO2 VBG 51 mmHg; pH VBG 7.55 (7.36-7.41)
[2022-08-08] MEDS ORDERED: GLUCAGON FOR INJ 1 MG VIAL SQ PRN (15:38)
[2022-08-08] MEDS ORDERED: LACTULOSE 20 GM PO SCH (15:38)
[2022-08-08] MEDS ORDERED: NON-FORMULARY MEDICATION (Insulin Regular Hum U-500 Conc [Humulin R U-500 (Conc) Kwikpen] SCH (15:38)
[2022-08-08] MEDS ORDERED: GLUCOSE 40% GEL 15 GM TUBE PO PRN (15:38)
[2022-08-08] MEDS ORDERED: NITROGLYCERIN SL 0.4 MG/TAB TAB SL PRN (15:38)
[2022-08-08] MEDS ORDERED: DEXTROSE 50% 50 ML SYRINGE IV PRN (15:38)
[2022-08-08] MEDS ORDERED: ROSUVASTATIN CALCIUM 20 MG TAB PO SCH (15:38)
[2022-08-08] MEDS ORDERED: GLUCOSE 10 TAB/TUBE PO PRN (15:38)
[2022-08-08] MEDS ORDERED: ALBUTEROL HFA 8 GM INHALER INH PRN (15:38)
[2022-08-08] MEDS ORDERED: MAGNESIUM HYDROXIDE SUSP 30 ML UDC PO PRN (15:38)
[2022-08-08] MEDS ORDERED: PHARMACIST DISCHARGE MED REC CONSULT PRN (15:38)
[2022-08-08] MEDS ORDERED: CARBOHYDRATES FOR HYPOGLYCEMIA PO PRN (15:38)
--- NOTE | 2022-08-08 16:16 | Electrocardiogram Report ---
Test Reason : Blood Pressure : / mmHG Vent. Rate : 078 BPM Atrial Rate : 078 BPM P-R Int : 176 ms QRS Dur : 112 ms QT Int : 410 ms P-R-T Axes : 012 -04 070 degrees QTc Int : 467 ms Normal sinus rhythm Left ventricular hypertrophy with repolarization abnormality Possible Lateral infarct (cited on or before 08-AUG-2022) Abnormal ECG When compared with ECG of 29-JUL-2022 04:53, No significant change was found Confirmed by Eduardo Perea ([id number]) on 08/08/2022 4:15:51 PM Referred By: Confirmed By:Eduardo Perea
[2022-08-08] MEDS ORDERED: PHARMACY GLYCEMIC MGMT CONSULT PRN (16:28)
[2022-08-08] MEDS ORDERED: INSULIN ASPART PER UNIT SC SCH (16:30)
[2022-08-08] MEDS ORDERED: PNEUMOCOCCAL POLYSACCHARIDES 25 MCG/0.5 ML VIAL/SYR IM ONE (17:11)
[2022-08-08] MEDS: CARBIDOPA/LEVODOPA 25/100MG TAB PO SCH ×2 (17:41→21:10)
[2022-08-08] MEDS: LACTULOSE 200GM/700ML WTR ENEMA PR SCH (17:46)
[2022-08-08] MEDS: DICLOFENAC SOD 1% GEL 100 GM TUBE EXT SCH ×3 (17:46→21:12)
[2022-08-08] MEDS: INSULIN ASPART PER UNIT SC SCH (19:00)
[2022-08-08] MEDS: D5W AND LACTATED RINGERS 1,000 ML IV SCH (21:07)
[2022-08-08] MEDS: DULoxetine HCL 60 MG CAP PO SCH (21:10)
[2022-08-08] MEDS: POTASSIUM CHLORIDE CRTAB 20 MEQ TABCR PO SCH (21:11)
[2022-08-08] MEDS: rifAXIMin 550 MG TABLET PO SCH (21:11)
[2022-08-08] MEDS: HEPARIN SOD 5,000 UNIT/0.5 ML VIAL SQ SCH (21:12)
[2022-08-09] MEDS: INSULIN ASPART PER UNIT SC SCH ×6 (00:07→23:53)
[2022-08-09] MEDS: LACTULOSE 200GM/700ML WTR ENEMA PR SCH ×3 (00:35→11:04)
[2022-08-09] MEDS ORDERED: ACETAMINOPHEN 1,000 MG/100 ML VIAL IV STA (03:19)
[2022-08-09] MEDS: ONDANSETRON INJ 2 MG/ML 2 ML VIAL IV PRN ×2 (06:02→16:47)
[2022-08-09 06:27] LABS: Appearance Urine Clear (Clear); Bacteria Urine Automated Negative (Negative); Bilirubin Urine Negative (Negative); Blood Urine Trace (Negative); Color Urine Yellow; Glucose Urine UA Negative (Negative); Ketones Urine Negative (Negative); Leukocyte Esterase Urine 2+ (Negative); Nitrite Urine Negative (Negative); Protein Urine Negative (Negative); Urobilinogen Urine Negative (Negative); WBC Urine Automated >30 /hpf (0-5); pH Urine 6.5 (4.5-7.5)
[2022-08-09] MEDS ORDERED: LANTUS PER UNIT CHARGE SQ ONE ×4 (07:15→14:45)
[2022-08-09 07:40] LABS: Basophils # (auto) 0.06 K/uL (0-0.2); Basophils % (auto) 0.6 %; Eosinophils # (auto) 0.08 K/uL (0-0.50); Eosinophils % (auto) 0.8 %; Hematocrit (blood only) 41.7 % (34.1-44.9); Hemoglobin 14.4 g/dl (12.0-16.0); Immature Granulocytes # (auto) 0.04 K/uL (0.00-0.02); Immature Granulocytes % (auto) 0.4 %; Lymphocytes # (auto) 2.34 K/uL (1.2-3.4); Lymphocytes % (auto) 23.8 %; Mean Corpuscular Hemoglobin 30.3 pg (25.0-34.0); Mean Corpuscular Hgb Conc 34.5 g/dL (32.0-36.0); Mean Corpuscular Volume 87.6 fL (80.0-100.0); Mean Platelet Volume 10.8 fL (9.4-12.3); Monocytes # (auto) 1.68 K/uL (0.24-0.82); Monocytes % (auto) 17.1 %; Neutrophils # (auto) 5.62 K/uL (1.4-6.5); Neutrophils % (auto) 57.3 %; Platelet Count 158 K/uL (130-400); RDW Coefficient of Variation 14.3 % (11.5-14.5); RDW Standard Deviation 45.9 fL (36.4-46.3); Red Blood Count 4.76 M/uL (3.93-5.22); White Blood Count 9.82 K/ul (4.8-10.8)
[2022-08-09 07:56] LABS: INR 1.2 (0.9-1.1); Prothrombin Time 12.8 Seconds (9.0-12.0)
[2022-08-09 08:08] LABS: Estimated Average Glucose 143 mg/dl; Hemoglobin A1C 6.6 % (4.5-5.6)
[2022-08-09 08:10] LABS: Albumin Level 2.8 gm/dl (3.4-5.0); Anion Gap 8 (3-11); Bilirubin,Total 1.5 mg/dl (0.2-1.0); Calcium 9.3 mg/dl (8.5-10.1); Carbon Dioxide 35 mmol/L (21-32); Chloride 95 mmol/L (98-107); Potassium 3.1 mmol/L (3.5-5.1); Sodium 138 mmol/L (136-145)
[2022-08-09 08:16] LABS: Alanine Aminotransferase 40 U/L (7-52); Albumin Globulin Ratio 0.7 (0.9-2); Alkaline Phosphatase 83 U/L (34-104); Aspartate Aminotransferase 56 U/L (13-39); BUN Creatinine Ratio 28.8 (10-20); Blood Urea Nitrogen 47 mg/dl (6-23); Chol HDL Ratio 2.4 (0-5); Cholesterol 112 mg/dl (0-200); Est GFR (African American) 37.4 ml/min; Est GFR (Non-African American) 32.3 ml/min; Globulin 3.8 gm/dl (2.5-4.0); Glucose 250 mg/dl (70-99(Fasting)); HDL Cholesterol 46 mg/dl; LDL Cholesterol Calculated 52 mg/dl; Total Protein 6.6 gm/dl (6.0-8.3); Triglycerides 72 mg/dl (0-150); VLDL Cholesterol 14 mg/dl (0-30)
[2022-08-09] MEDS ORDERED: LIDOCAINE 5% 1 PATCH TD SCH (09:00)
[2022-08-09] MEDS: POTASSIUM CHLORIDE / WTR 10 MEQ/100 ML PLCT IV SCH ×2 (09:35→11:10)
[2022-08-09] MEDS: DICLOFENAC SOD 1% GEL 100 GM TUBE EXT SCH ×4 (09:36→21:11)
[2022-08-09] MEDS: LIDOCAINE 5% 1 PATCH TD SCH (09:36)
[2022-08-09] MEDS: HEPARIN SOD 5,000 UNIT/0.5 ML VIAL SQ SCH ×2 (09:37→21:10)
[2022-08-09] MEDS: CARBIDOPA/LEVODOPA 25/100MG TAB PO SCH ×3 (10:49→21:09)
[2022-08-09] MEDS: PANTOprazole 40 MG TAB PO SCH (10:49)
[2022-08-09] MEDS: rifAXIMin 550 MG TABLET PO SCH ×2 (10:50→21:10)
[2022-08-09] MEDS: SERTRALINE HCL 50 MG TABLET PO SCH (10:50)
[2022-08-09] MEDS: POTASSIUM CHLORIDE CRTAB 20 MEQ TABCR PO SCH ×2 (10:50→21:09)
[2022-08-09] MEDS ORDERED: LACTULOSE SYRUP 20 GM/30 ML UDC PO ONE (11:15)
[2022-08-09] MEDS: D5W AND LACTATED RINGERS 1,000 ML IV SCH (13:35)
[2022-08-09] MEDS ORDERED: INSULIN ASPART PER UNIT SC ONE (14:30)
[2022-08-09] MEDS: LACTULOSE SYRUP 20 GM/30 ML UDC PO SCH ×2 (14:39→21:11)
--- NOTE | 2022-08-09 14:43 | Pharmacy Report ---
Pharmacy Glycemic Short Note 2 - Date of Service August 09, 2022 - Glycemic Short BSG Results (Last 24 hours): 08/08/22 08/08/22 08/08/22 17:50 18:30 19:55 Glucose POC Glucose 56 L* 171 H 112 H 08/09/22 08/09/22 08/09/22 00:01 05:46 05:56 Glucose POC Glucose 144 H 263 H 270 H 08/09/22 08/09/22 08/09/22 07:14 07:37 12:05 Glucose 250 H POC Glucose 250 H 245 H 08/09/22 14:27 Glucose POC Glucose 242 H OUTPATIENT ANTIDIABETIC REGIMEN: * U-500 insulin 140 units SC qAM, 10 units SC qPM HbA1c: 6.6% (08/09/22) ASSESSMENT: * ALEX is a 67 year old female known to pharmacy glycemic service * Presented to ED yesterday 08/08 w/ altered mental status and right-sided weakness * Pertinent PMH includes hepatic encephalopathy, CHF, and well-controlled T2DM * MARY ELLEN noted, SCr of 1.63 mg/dL (baseline ~1 mg/dL) * NPO last evening into this morning, ordered diet with lunch today, but per RN, patient is lethargic and only consumed a couple of bites of food * Discussed fluids with hospitalist, will continue D5/LR for now until diet tolerated * In the past, we have utilized NPH insulin to good effect, but will utilize Lantus today until PO intake is consistent/reliable PLAN FOR INPATIENT GLYCEMIC CONTROL: * Basal insulin - ~25% of reported home daily insulin requirements * Lantus 20 units SC x 1 in AM, 20 units SC x 1 in afternoon * Reasses in AM, consider NPH if tolerating diet * Bolus insulin * NovoLog per scale ACHS or Q6hrs while NPO * Goal Range: Low 110 mg/dL - High 140 mg/dL * Correction Factor: 15 mg/dL/unit * Nutritional / Prandial insulin per carb ratio of 1 unit per 4 grams CHO consumed
[2022-08-09] MEDS ORDERED: FAMOTIDINE 20 MG in SYRINGE 3 ML IV ONE (17:02)
[2022-08-09] MEDS: NSS + 20MEQ KCL 20 MEQ/1,000 ML BAG IV SCH (17:33)
[2022-08-09] MEDS: DULoxetine HCL 60 MG CAP PO SCH (21:11)
--- NOTE | 2022-08-09 21:47 | Hospitalist Progress Note ---
Date of Service August 09, 2022 Assessment & Plan (1) Stroke: Plan: R occipital lobe stroke. visual field examination was challenging due to #2 and difficulty following commands but seems to have visual field cut on left which is c/w the CVA. add asa 81mg daily for secondary prevention. CTAs head/neck negative for stenosis. echo w/o thrombus. tele thus far w/o a.fib. LDL 52 on lipid profile. was taking 40mg crestor daily - resume this tomorrow if LFTs are stable. PT, OT, speech evals. Will consult neurology for any other recommendations. will need full eye exam post-d/c. allow permissive HTN another 24 hours then start to resume anti-hypertensives. (2) Hepatic encephalopathy: Plan: Modestly improved today. Mentation a little better. Cont rifaximin 550mg BID. Stop lactulose enemas - change to lactulose 20gm TID - titrate 3-4 BMs/day. Ammonia in am. Hepatic encephalopathy likely precipitated by lack of lactulose for 2 days last week at [facility]. ?UTI could have contributed. Acute CVA and stress with such may have contributed as well. (3) MARY ELLEN (acute kidney injury): Plan: Cr 1.6 at admission Cr 1.6 today as well Baseline ~1 Suspect pre-renal etiology - poor PO intake, use of diuretics for cirrhosis, etc Hyaline casts c/w such Recent CPK level wnl Cont IV fluids 1 more night cautiously BMP am 07/14/22 CT abd/pelvis without hydronephrosis or kidney stones or other significant urinary tract pathology (4) Right sided weakness: Plan: By report from [facility] there was ? right sided weakness. On my exam today her arm and leg strength was relatively symmetric. MRI brain without pathology to explain any focal limb weakness. Perhaps there was generalized weakness in setting of hepatic encephalopathy? Will need PT/OT. (5) Chronic diastolic heart failure: Plan: Holding torsemide and spironolactone for MARY ELLEN. Appears volume contracted still on exam today. Typically on nadalol for portal HTN - cont to hold. (6) Depression: Plan: Continue duloxetine. (7) DM2 (diabetes mellitus, type 2): Plan: stop dextrose-containing IV fluids. pharmacy has been consulted for glycemic management. HbA1C was 6.6% this am. (8) GARRETT on CPAP: Plan: CPAP HS and prn. (9) HTN (hypertension): Plan: controlled recently her NOELLE was discontinued nadalol currently on hold (10) HLD (hyperlipidemia): Plan: Resume statin if LFTs are stable tomorrow am. (11) GERD (gastroesophageal reflux disease): Plan: Continue pantoprazole daily. gave a 1x dose of IV pepcid due to dyspepsia and nausea today. 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 dx with possible parkinsonism - initiated on carbidopa-levodopa 0.5 tab TID. cont for now. (14) Contusion of face: Plan: right eye since her falls earlier this month she has had headaches can't rule out concussion injury at that time (15) Cirrhosis: Plan: 2nd to SMALL now with hepatic encephalopathy as above otherwise appears compensated from volume standpoint ultimately will need nadalol and diuretics resumed (16) Neck pain: Plan: 07/29/[address] without fracture in the setting of her prior falls add voltaren gel 4gm QID to posterior neck for pain relief (17) DVT prophylaxis: Plan: heparin 5000 BID Plan pt's sister extensively updated at bedside today Admission and Anticipated Discharge Date Admission Date: August 08, 2022 Subjective patient wakes up & answers questions but falls asleep easily this is improved as she was lethargic/nearly obtunded at time of ER presentation family at bedside during the visit - multiple questions about her care sister states that the SNF did NOT have her lactulose for 2 days -- thus, it wasn't that the patient was refusing lactulose - it simply was not available patient continues with nausea she tells me vaguely that she is "dizzy" - not vertigo, but "dizzy" "when I look over to the right I feel dizzy" c/o posterior neck pain c/o headache over right eye (she hit her head prior to 07/29/22 admission) sister states that her "left leg seems to lock" when she tries to get around had Right TKR in the past Review of Systems Review of Systems: gen - no fevers; very tired/weak cv - no chest pain pulm - no dyspnea GI - no abd pain; + nausea and emesis; +BMs per nursing staff Physical Exam Physical Exam: gen - looks ill, sleepy, morbidly obese; does wake up and answers questions head - right eye ecchymoses from a fall about 2 weeks ago eyes - PERRL; visual healy per direct confrontation - appears to have visual field cut on left but she was sleepy and followed commands poorly while checking visual healy neck - posterior - tender to palpation; no JVD heart - RRR, s1 s2 lungs - CTA B/l abd - distended but nontender, liver edge not palpable; BS+ ext - trace edema b/l, pulses 2+ b/l neuro - positive for mild asterixis; sleepy, knows she is in hospital; strength 5/5 upper and lower extremities; musculo - OA changes and crepitus left knee; TKR scar on R knee; poor mobility of b/l hips Results & Data Results & Data ([facility]) Vital Signs (Past 12 Hours) Vital Signs Temp Pulse Resp BP Pulse Ox O2 Del Method 08/09/22 15:54 36.9 C 72 18 100/62 94 Room Air 08/09/22 13:04 36.5 C 74 18 132/73 100 Room Air Laboratory Results Laboratory Results - last 24 hr 08/09/22 08/09/22 08/09/22 00:01 01:18 05:46 WBC RBC Hgb Hct MCV MCH MCHC RDW Std Deviation RDW Coeff of Vanesa Plt Count MPV Immature Gran % (Auto) Neut % (Auto) Lymph % (Auto) [place] % (Auto) Eos % (Auto) Baso % (Auto) Neut # (Auto) Lymph # (Auto) [place] # (Auto) Eos # (Auto) Baso # (Auto) Immature Gran # (Auto) PT INR Sodium Potassium Chloride Carbon Dioxide Anion Gap BUN Creatinine Est Cr Clr Drug Dosing Est GFR ( Amer) Est GFR (Non-Af Amer) BUN/Creatinine Ratio Glucose POC Glucose 144 H 263 H Estimat Average Glucose Hemoglobin A1c Calcium Total Bilirubin AST ALT Alkaline Phosphatase Ammonia Troponin I High Sens 27.2 H Total Protein Albumin Globulin Albumin/Globulin Ratio Triglycerides Cholesterol LDL Cholesterol, Calc VLDL Cholesterol, Calc HDL Cholesterol Cholesterol/HDL Ratio Urine Color Urine Appearance Urine pH Ur Specific [place] Urine Protein Urine Glucose (UA) Urine Ketones Urine Blood Urine Nitrite Urine Bilirubin Urine Urobilinogen Ur Leukocyte Esterase Urine WBC (Auto) Urine RBC (Auto) U Hyaline Cast (Auto) U Epithel Cells (Auto) Urine Bacteria (Auto) 08/09/22 08/09/22 08/09/22 05:56 06:00 07:14 WBC RBC Hgb Hct MCV MCH MCHC RDW Std Deviation RDW Coeff of Vanesa Plt Count MPV Immature Gran % (Auto) Neut % (Auto) Lymph % (Auto) [place] % (Auto) Eos % (Auto) Baso % (Auto) Neut # (Auto) Lymph # (Auto) [place] # (Auto) Eos # (Auto) Baso # (Auto) Immature Gran # (Auto) PT INR Sodium Potassium Chloride Carbon Dioxide Anion Gap BUN Creatinine Est Cr Clr Drug Dosing Est GFR ( Amer) Est GFR (Non-Af Amer) BUN/Creatinine Ratio Glucose POC Glucose 270 H Estimat Average Glucose Hemoglobin A1c Calcium Total Bilirubin AST ALT Alkaline Phosphatase Ammonia 101.0 H Troponin I High Sens Total Protein Albumin Globulin Albumin/Globulin Ratio Triglycerides Cholesterol LDL Cholesterol, Calc VLDL Cholesterol, Calc HDL Cholesterol Cholesterol/HDL Ratio Urine Color Yellow Urine Appearance Clear Urine pH 6.5 Ur Specific [place] 1.030 Urine Protein Negative Urine Glucose (UA) Negative Urine Ketones Negative Urine Blood Trace H Urine Nitrite Negative Urine Bilirubin Negative Urine Urobilinogen Negative Ur Leukocyte Esterase 2+ H Urine WBC (Auto) >30 H Urine RBC (Auto) 5-10 H U Hyaline Cast (Auto) 5-10 H U Epithel Cells (Auto) 10-20 H Urine Bacteria (Auto) Negative 08/09/22 08/09/22 08/09/22 07:14 07:14 07:14 WBC 9.82 RBC 4.76 Hgb 14.4 Hct 41.7 MCV 87.6 MCH 30.3 MCHC 34.5 RDW Std Deviation 45.9 RDW Coeff of Vanesa 14.3 Plt Count 158 MPV 10.8 Immature Gran % (Auto) 0.4 Neut % (Auto) 57.3 Lymph % (Auto) 23.8 [place] % (Auto) 17.1 Eos % (Auto) 0.8 Baso % (Auto) 0.6 Neut # (Auto) 5.62 Lymph # (Auto) 2.34 [place] # (Auto) 1.68 H Eos # (Auto) 0.08 Baso # (Auto) 0.06 Immature Gran # (Auto) 0.04 H PT 12.8 H INR 1.2 H Sodium 138 Potassium 3.1 L Chloride 95 L Carbon Dioxide 35 H Anion Gap 8 BUN 47 H Creatinine 1.63 H Est Cr Clr Drug Dosing Not Reportable Est GFR ( Amer) 37.4 Est GFR (Non-Af Amer) 32.3 BUN/Creatinine Ratio 28.8 H Glucose 250 H POC Glucose Estimat Average Glucose Hemoglobin A1c Calcium 9.3 Total Bilirubin 1.5 H AST 56 H ALT 40 Alkaline Phosphatase 83 Ammonia Troponin I High Sens Total Protein 6.6 Albumin 2.8 L Globulin 3.8 Albumin/Globulin Ratio 0.7 L Triglycerides 72 Cholesterol 112 LDL Cholesterol, Calc 52 VLDL Cholesterol, Calc 14 HDL Cholesterol 46 Cholesterol/HDL Ratio 2.4 Urine Color Urine Appearance Urine pH Ur Specific [place] Urine Protein Urine Glucose (UA) Urine Ketones Urine Blood Urine Nitrite Urine Bilirubin Urine Urobilinogen Ur Leukocyte Esterase Urine WBC (Auto) Urine RBC (Auto) U Hyaline Cast (Auto) U Epithel Cells (Auto) Urine Bacteria (Auto) 08/09/22 08/09/22 08/09/22 07:14 07:14 07:37 WBC RBC Hgb Hct MCV MCH MCHC RDW Std Deviation RDW Coeff of Vanesa Plt Count MPV Immature Gran % (Auto) Neut % (Auto) Lymph % (Auto) [place] % (Auto) Eos % (Auto) Baso % (Auto) Neut # (Auto) Lymph # (Auto) [place] # (Auto) Eos # (Auto) Baso # (Auto) Immature Gran # (Auto) PT INR Sodium Potassium Chloride Carbon Dioxide Anion Gap BUN Creatinine Est Cr Clr Drug Dosing Est GFR ( Amer) Est GFR (Non-Af Amer) BUN/Creatinine Ratio Glucose POC Glucose 250 H Estimat Average Glucose 143 Hemoglobin A1c 6.6 H Calcium Total Bilirubin AST ALT Alkaline Phosphatase Ammonia Troponin I High Sens 28.9 H Total Protein Albumin Globulin Albumin/Globulin Ratio Triglycerides Cholesterol LDL Cholesterol, Calc VLDL Cholesterol, Calc HDL Cholesterol Cholesterol/HDL Ratio Urine Color Urine Appearance Urine pH Ur Specific [place] Urine Protein Urine Glucose (UA) Urine Ketones Urine Blood Urine Nitrite Urine Bilirubin Urine Urobilinogen Ur Leukocyte Esterase Urine WBC (Auto) Urine RBC (Auto) U Hyaline Cast (Auto) U Epithel Cells (Auto) Urine Bacteria (Auto) 08/09/22 08/09/22 08/09/22 12:05 14:27 16:47 WBC RBC Hgb Hct MCV MCH MCHC RDW Std Deviation RDW Coeff of Vanesa Plt Count MPV Immature Gran % (Auto) Neut % (Auto) Lymph % (Auto) [place] % (Auto) Eos % (Auto) Baso % (Auto) Neut # (Auto) Lymph # (Auto) [place] # (Auto) Eos # (Auto) Baso # (Auto) Immature Gran # (Auto) PT INR Sodium Potassium Chloride Carbon Dioxide Anion Gap BUN Creatinine Est Cr Clr Drug Dosing Est GFR ( Amer) Est GFR (Non-Af Amer) BUN/Creatinine Ratio Glucose POC Glucose 245 H 242 H 309 H* Estimat Average Glucose Hemoglobin A1c Calcium Total Bilirubin AST ALT Alkaline Phosphatase Ammonia Troponin I High Sens Total Protein Albumin Globulin Albumin/Globulin Ratio Triglycerides Cholesterol LDL Cholesterol, Calc VLDL Cholesterol, Calc HDL Cholesterol Cholesterol/HDL Ratio Urine Color Urine Appearance Urine pH Ur Specific [place] Urine Protein Urine Glucose (UA) Urine Ketones Urine Blood Urine Nitrite Urine Bilirubin Urine Urobilinogen Ur Leukocyte Esterase Urine WBC (Auto) Urine RBC (Auto) U Hyaline Cast (Auto) U Epithel Cells (Auto) Urine Bacteria (Auto) Diagnostic Findings MRI brain - IMPRESSION: 1. Suboptimal evaluation due to the motion artifact. 2. A 9 mm linear focus of restricted diffusion within the periventricular white matter of the right occipital lobe. This may represent a small acute infarct. . 3. No acute intracranial hemorrhage. PG Care Time/CCT Total # of Minutes Spent Total Time Spent with Patient: Total time spent is greater than 50% in coordination of care (as documented) at patient's floor/unit and/or counseling patient: Coding Level of Care Code 36819 SUB INP/OBS CARE 3/50MIN Diagnoses Stroke I63.9 Hepatic encephalopathy K76.82 MARY ELLEN (acute kidney injury) N17.9 Right sided weakness R53.1 Chronic diastolic heart failure I50.32 Depression F32.9 DM2 (diabetes mellitus, type 2) E11.9 GARRETT on CPAP G47.33; Z99.89 HTN (hypertension) I10 HLD (hyperlipidemia) E78.5 GERD (gastroesophageal reflux disease) K21.9 Hypokalemia E87.6 Atypical parkinsonism G20 Contusion of face S00.83XA Cirrhosis K74.60 Neck pain M54.2 DVT prophylaxis Z29.9
[2022-08-10] MEDS ORDERED: INSULIN ASPART PER UNIT SC SCH (02:00)
[2022-08-10] MEDS: INSULIN ASPART PER UNIT SC SCH ×5 (05:24→22:17)
[2022-08-10] MEDS: NSS + 20MEQ KCL 20 MEQ/1,000 ML BAG IV SCH ×2 (05:25→19:34)
[2022-08-10 06:33] LABS: Basophils # (auto) 0.06 K/uL (0-0.2); Basophils % (auto) 0.6 %; Eosinophils # (auto) 0.27 K/uL (0-0.50); Eosinophils % (auto) 2.7 %; Hematocrit (blood only) 40.7 % (34.1-44.9); Hemoglobin 14.6 g/dl (12.0-16.0); Immature Granulocytes # (auto) 0.03 K/uL (0.00-0.02); Immature Granulocytes % (auto) 0.3 %; Lymphocytes # (auto) 3.36 K/uL (1.2-3.4); Lymphocytes % (auto) 33.3 %; Mean Corpuscular Hemoglobin 31.6 pg (25.0-34.0); Mean Corpuscular Hgb Conc 35.9 g/dL (32.0-36.0); Mean Corpuscular Volume 88.1 fL (80.0-100.0); Mean Platelet Volume 10.8 fL (9.4-12.3); Monocytes # (auto) 1.66 K/uL (0.24-0.82); Monocytes % (auto) 16.4 %; Neutrophils # (auto) 4.72 K/uL (1.4-6.5); Neutrophils % (auto) 46.7 %; Platelet Count 148 K/uL (130-400); RDW Coefficient of Variation 14.3 % (11.5-14.5); RDW Standard Deviation 46.1 fL (36.4-46.3); Red Blood Count 4.62 M/uL (3.93-5.22)
[2022-08-10 07:05] LABS: Calcium 8.9 mg/dl (8.5-10.1); Carbon Dioxide 33 mmol/L (21-32); Chloride 99 mmol/L (98-107); Potassium 3.8 mmol/L (3.5-5.1); Sodium 139 mmol/L (136-145)
[2022-08-10 07:06] LABS: Albumin Level 2.7 gm/dl (3.4-5.0); Anion Gap 7 (3-11); Bilirubin,Total 1.6 mg/dl (0.2-1.0)
[2022-08-10 07:12] LABS: Alanine Aminotransferase 31 U/L (7-52); Albumin Globulin Ratio 0.7 (0.9-2); Alkaline Phosphatase 82 U/L (34-104); Aspartate Aminotransferase 56 U/L (13-39); BUN Creatinine Ratio 33.1 (10-20); Blood Urea Nitrogen 45 mg/dl (6-23); Est GFR (African American) 46.6 ml/min; Est GFR (Non-African American) 40.2 ml/min; Globulin 3.8 gm/dl (2.5-4.0); Glucose 114 mg/dl (70-99(Fasting)); Total Protein 6.5 gm/dl (6.0-8.3)
[2022-08-10 07:21] LABS: INR 1.2 (0.9-1.1); Prothrombin Time 12.4 Seconds (9.0-12.0)
[2022-08-10] MEDS: rifAXIMin 550 MG TABLET PO SCH ×2 (09:27→21:49)
[2022-08-10] MEDS: SERTRALINE HCL 50 MG TABLET PO SCH (09:27)
[2022-08-10] MEDS: POTASSIUM CHLORIDE CRTAB 20 MEQ TABCR PO SCH ×2 (09:27→21:50)
[2022-08-10] MEDS: CARBIDOPA/LEVODOPA 25/100MG TAB PO SCH ×3 (09:27→21:49)
[2022-08-10] MEDS: PANTOprazole 40 MG TAB PO SCH (09:27)
[2022-08-10] MEDS: HEPARIN SOD 5,000 UNIT/0.5 ML VIAL SQ SCH ×2 (09:28→21:50)
[2022-08-10] MEDS: LACTULOSE SYRUP 20 GM/30 ML UDC PO SCH ×2 (09:28→14:18)
[2022-08-10] MEDS: DICLOFENAC SOD 1% GEL 100 GM TUBE EXT SCH ×4 (09:28→22:17)
[2022-08-10] MEDS: ASPIRIN 81 MG ECTAB PO SCH (09:29)
[2022-08-10] MEDS: LIDOCAINE 5% 1 PATCH TD SCH (09:29)
--- NOTE | 2022-08-10 09:42 | Ultrasound Report ---
US duplex portal hepatic veins HISTORY: 67 years-old Female hepatic encephalopathy, cirrhosis cirrhosis with encephalopathy COMPARISON: CT abdomen and pelvis 07/14/2022 TECHNIQUE: 3 views of the hepatic vasculature were obtained assessing grayscale appearance, color and spectral flow FINDINGS: Nonvisualization of the hepatic veins. Reversal of flow within the patent portal vein. Limited exam s econdary to patient body habitus and inability to breath-hold. IMPRESSION: 1. Limited exam as above. 2. Hepatofugal flow noted within the patent portal vein. ACT 112: Negative or not required by law. The above report was generated using voice recognition software. It may contain grammatical, syntax o r spelling errors. Electronically signed by: Chucho Murry M.D. 08/10/2022 9:40 AM
[2022-08-10] MEDS ORDERED: LANTUS PER UNIT CHARGE SQ ONE (11:30)
--- NOTE | 2022-08-10 11:47 | Neurology Progress Note ---
Date of Service August 10, 2022 Assessment & Plan (1) Stroke: Plan Neurology Progress Note Assessment & Plan: Impression: pt with mri brain finding of small subacute rt occidpital area ischemic stroke. it appears small and subacute in nature. it is not major contributing factors to her current mental status. Agree that she continues to have hepatocerebral dysfucntion likely to due to high ammonia and ongoing other medical issues including UTI that seems to be getting worse. Recommendations: -as recommended on prior neurology note. work up for muscle disorders and atypical parkisonism features can be address and continue work up as outpt once pt is stable and able to be discharged. -main focus at this is to treat her hepatic condition and improve ammonia level and UTI treatment and other metabolic disorders. not much else to add at this point from neurology. current stroke management is appropriate and not much to add. please call again if new question Dr. Flash Cervantes MD [facility] Neurology Subjective: Patient Seen and Examined. The notes from the last 24 hours were reviewed.pt sleepy but able to follow command well. Review of Systems: Per HPI and prior note. Physical Exam: HEENT: Normocephalic. No icter or congestion Neck: supple Neuro: Level of consciousness:drowsy but able to follow command well. knew the name of the hospital and month. not sure of year. she knew president Veronika. Cranial Nerves:face symmetric, PERRL, tongue midline, hearing intact, shrugs shoulders Strength:4+/5 throughout Sensation to light touch: Intact bilaterally Meds: See chart I personally reviewed all of the medications Chart reviewed Total time spent: 50 minutes (this includes chart review); more than 50% time spent in counseling or coordination of care. Admission and Anticipated Discharge Date Admission Date: August 08, 2022 Results & Data ([facility]) Vital Signs (Past 12 Hours) Vital Signs Temp Pulse Pulse Resp BP Pulse Ox O2 Del Method 08/10/22 07:54 36.5 C 73 16 118/70 97 Room Air 08/10/22 03:21 36.9 C 78 20 119/71 96 Room Air 08/10/22 01:55 77
--- NOTE | 2022-08-10 13:29 | Pharmacy Report ---
Pharmacy Glycemic Short Note 2 - Date of Service August 10, 2022 - Glycemic Short BSG Results (Last 24 hours): 08/09/22 08/09/22 08/09/22 14:27 16:47 21:10 Glucose POC Glucose 242 H 309 H* 201 H 08/09/22 08/10/22 08/10/22 23:39 05:12 06:10 Glucose 114 H POC Glucose 151 H 115 H 08/10/22 08/10/22 07:08 11:11 Glucose POC Glucose 134 H 276 H OUTPATIENT ANTIDIABETIC REGIMEN: * U-500 insulin 140 units SC qAM, 10 units SC qPM HbA1c: 6.6% (08/09/22) ASSESSMENT: 08/10/22: * Persistent hyperglycemia noted yesterday, BSGs ranging (181-309 mg/dL), fasting BSG of 134 mg/dL this morning * Dextrose-containing IV maintenance fluids now discontinued * Patient received 90 units of insulin (40 units of basal and 50 units of prandial/correctional bolus) * Will tighten Novolog parameters today and allow for increased basal (plan to switch to BID NPH tomorrow) 08/09/22: * EW is a 67 year old female known to pharmacy glycemic service * Presented to ED yesterday 08/08 w/ altered mental status and right-sided weakness * Pertinent PMH includes hepatic encephalopathy, CHF, and well-controlled T2DM * MARY ELLEN noted, SCr of 1.63 mg/dL (baseline ~1 mg/dL) * NPO last evening into this morning, ordered diet with lunch today, but per RN, patient is lethargic and only consumed a couple of bites of food * Discussed fluids with hospitalist, will continue D5/LR for now until diet tolerated * In the past, we have utilized NPH insulin to good effect, but will utilize Lantus today until PO intake is consistent/reliable PLAN FOR INPATIENT GLYCEMIC CONTROL: * Basal insulin * Lantus 40 units SC x 1 at lunch * Lantus 0-15 units SC HS (see EHR for details) * Bolus insulin - tighten * NovoLog per scale ACHS or Q6hrs while NPO * Goal Range: Low 110 mg/dL - High 140 mg/dL * Correction Factor: 12 mg/dL/unit * Nutritional / Prandial insulin per carb ratio of 1 unit per 3 grams CHO consumed
[2022-08-10] MEDS ORDERED: LACTULOSE SYRUP 20 GM/30 ML UDC PO ONE (16:05)
--- NOTE | 2022-08-10 16:06 | Hospitalist Progress Note ---
Date of Service August 10, 2022 Assessment & Plan (1) Stroke: Plan: R occipital lobe stroke. visual field examination performed yesterday was challenging due to #2 and difficulty following commands but seems to have visual field cut on left which is c/w the CVA. added asa 81mg daily for secondary prevention. CTAs head/neck negative for stenosis. echo w/o thrombus. tele thus far w/o a.fib. LDL 52 on lipid profile. was taking 40mg crestor daily - resume; LFTs stable. PT, OT, speech evals appreciated. Appreciate neurology consultation. will need full eye exam post-d/c. BPs still low or low-normal - cont to hold nadalol. (2) Hepatic encephalopathy: Plan: Again clinically improved today with better mentation & awakefulness - despite the ammonia level being 125 Cont rifaximin 550mg BID. Only 2 BMs in the last 12 hours - increase lactulose to 30gm TID - titrate 3-4 BMs/day. Ammonia level in am. Hepatic encephalopathy likely precipitated by lack of lactulose for [address] [facility]. Acute CVA and stress with such may have contributed as well? No infectious etiology found -- urine cx neg, COVID neg, no pneumonia on cxr, etc. Checked portal vein doppler - not a great study but no obvious PVT. (3) MARY ELLEN (acute kidney injury): Plan: Cr 1.6 at admission Cr 1.3 today Baseline ~1 Suspect pre-renal etiology - poor PO intake, use of diuretics for cirrhosis, etc Hyaline casts c/w such Recent CPK level wnl Cont IV fluids 1 more night cautiousl and then d/c BMP am 07/14/22 CT abd/pelvis without hydronephrosis or kidney stones or other significant urinary tract pathology (4) Right sided weakness: Plan: By report from [facility] there was ? right sided weakness. Since coming here she has not had such. MRI brain without pathology to explain any focal limb weakness. Perhaps there was generalized weakness in setting of hepatic encephalopathy? PT/OT. (5) Chronic diastolic heart failure: Plan: Holding torsemide and spironolactone for MARY ELLEN. Appears volume contracted still on exam today. Typically on nadalol for portal HTN - cont to hold. Cont IV fluids cautiously. (6) Depression: Plan: Continue duloxetine. (7) DM2 (diabetes mellitus, type 2): Plan: pharmacy has been consulted for glycemic management. HbA1C was 6.6% cont basal-bolus insulins - adjustments per pharmacy (8) GARRETT on CPAP: Plan: CPAP HS and prn. (9) HTN (hypertension): Plan: controlled recently her NOELLE was discontinued nadalol currently on hold due to low-normal BPs and acute CVA (10) HLD (hyperlipidemia): Plan: Resume statin Chronically abnl LFTs are stable (11) GERD (gastroesophageal reflux disease): Plan: Continue pantoprazole daily. 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 dx with possible parkinsonism - initiated on carbidopa-levodopa 0.5 tab TID. continue (14) Contusion of face: Plan: right eye since her falls earlier this month she has had headaches can't rule out concussion injury at that time (15) Cirrhosis: Plan: 2nd to SMALL now with hepatic encephalopathy as above otherwise appears compensated from volume standpoint ultimately will need nadalol and diuretics resumed family requesting [facility] consult - will do so on Thursday portal vein doppler neg for obvious PVT (16) Neck pain: Plan: 07/29/[address] without fracture in the setting of her prior falls added voltaren gel 4gm QID to posterior neck for pain relief still complaining of pain - reimage the C-spine?? (17) DVT prophylaxis: Plan: heparin 5000 BID Plan pt's sister extensively updated at bedside once again today dispo - back to [facility] at d/c ? Admission and Anticipated Discharge Date Admission Date: August 08, 2022 Subjective tele stable overnight patient sitting in chair sister at bedside still "doesn't feel like herself" but is more awake/alert today than previous appetite slightly better today main complaint is that of ongoing neck pain/discomfort and posterior occipital headache denies paresthesias or weakness of either arm denies cp, dyspnea, or abd pain sister asks if we can consult [facility] while here per nursing - had small stool overnight; had large stool this am Review of Systems Review of Systems: gen - fatigue; no fever cv - no cp pulm - no cough, no dyspnea GI - no abd pain; nausea is better today; no vomiting today Physical Exam Physical Exam: gen - sitting in chair; NAD; a bit more awake today; talking more; morbidly obese head - right eye ecchymoses from a fall about 2 weeks ago neck - posterior - tender to palpation; no JVD heart - RRR, s1 s2, no murmur lungs - CTA B/l abd - soft, nontender, liver edge not palpable; BS+ ext - trace edema b/l, pulses 2+ b/l neuro - strength 5/5 upper extremities psych - a/o to person and place Results & Data Results & Data ([facility]) Vital Signs (Past 12 Hours) Vital Signs Temp Pulse Pulse Resp BP Pulse Ox O2 Del Method 08/10/22 11:58 36.8 C 76 18 116/71 98 Room Air 08/10/22 08:00 81 08/10/22 07:54 36.5 C 73 16 118/70 97 Room Air Laboratory Results Laboratory Results - last 24 hr 08/09/22 08/09/22 08/09/22 16:47 21:10 23:39 WBC RBC Hgb Hct MCV MCH MCHC RDW Std Deviation RDW Coeff of Vanesa Plt Count MPV Immature Gran % (Auto) Neut % (Auto) Lymph % (Auto) [place] % (Auto) Eos % (Auto) Baso % (Auto) Neut # (Auto) Lymph # (Auto) [place] # (Auto) Eos # (Auto) Baso # (Auto) Immature Gran # (Auto) PT INR Sodium Potassium Chloride Carbon Dioxide Anion Gap BUN Creatinine Est Cr Clr Drug Dosing Est GFR ( Amer) Est GFR (Non-Af Amer) BUN/Creatinine Ratio Glucose POC Glucose 309 H* 201 H 151 H Calcium Total Bilirubin AST ALT Alkaline Phosphatase Ammonia Total Protein Albumin Globulin Albumin/Globulin Ratio 08/10/22 08/10/22 08/10/22 05:12 06:10 06:10 WBC RBC Hgb Hct MCV MCH MCHC RDW Std Deviation RDW Coeff of Vanesa Plt Count MPV Immature Gran % (Auto) Neut % (Auto) Lymph % (Auto) [place] % (Auto) Eos % (Auto) Baso % (Auto) Neut # (Auto) Lymph # (Auto) [place] # (Auto) Eos # (Auto) Baso # (Auto) Immature Gran # (Auto) PT 12.4 H INR 1.2 H Sodium 139 Potassium 3.8 D Chloride 99 Carbon Dioxide 33 H Anion Gap 7 BUN 45 H Creatinine 1.36 H Est Cr Clr Drug Dosing Not Reportable Est GFR ( Amer) 46.6 Est GFR (Non-Af Amer) 40.2 BUN/Creatinine Ratio 33.1 H Glucose 114 H POC Glucose 115 H Calcium 8.9 Total Bilirubin 1.6 H AST 56 H ALT 31 Alkaline Phosphatase 82 Ammonia Total Protein 6.5 Albumin 2.7 L Globulin 3.8 Albumin/Globulin Ratio 0.7 L 08/10/22 08/10/22 08/10/22 06:10 06:10 07:08 WBC 10.10 RBC 4.62 Hgb 14.6 Hct 40.7 MCV 88.1 MCH 31.6 MCHC 35.9 RDW Std Deviation 46.1 RDW Coeff of Vanesa 14.3 Plt Count 148 MPV 10.8 Immature Gran % (Auto) 0.3 Neut % (Auto) 46.7 Lymph % (Auto) 33.3 [place] % (Auto) 16.4 Eos % (Auto) 2.7 Baso % (Auto) 0.6 Neut # (Auto) 4.72 Lymph # (Auto) 3.36 [place] # (Auto) 1.66 H Eos # (Auto) 0.27 Baso # (Auto) 0.06 Immature Gran # (Auto) 0.03 H PT INR Sodium Potassium Chloride Carbon Dioxide Anion Gap BUN Creatinine Est Cr Clr Drug Dosing Est GFR ( Amer) Est GFR (Non-Af Amer) BUN/Creatinine Ratio Glucose POC Glucose 134 H Calcium Total Bilirubin AST ALT Alkaline Phosphatase Ammonia 125.0 H Total Protein Albumin Globulin Albumin/Globulin Ratio 08/10/22 11:11 WBC RBC Hgb Hct MCV MCH MCHC RDW Std Deviation RDW Coeff of Vanesa Plt Count MPV Immature Gran % (Auto) Neut % (Auto) Lymph % (Auto) [place] % (Auto) Eos % (Auto) Baso % (Auto) Neut # (Auto) Lymph # (Auto) [place] # (Auto) Eos # (Auto) Baso # (Auto) Immature Gran # (Auto) PT INR Sodium Potassium Chloride Carbon Dioxide Anion Gap BUN Creatinine Est Cr Clr Drug Dosing Est GFR ( Amer) Est GFR (Non-Af Amer) BUN/Creatinine Ratio Glucose POC Glucose 276 H Calcium Total Bilirubin AST ALT Alkaline Phosphatase Ammonia Total Protein Albumin Globulin Albumin/Globulin Ratio PG Care Time/CCT Total # of Minutes Spent Total Time Spent with Patient: Total time spent is greater than 50% in coordination of care (as documented) at patient's floor/unit and/or counseling patient: Coding Level of Care Code 17855 SUB INP/OBS CARE 3/50MIN Diagnoses Stroke I63.9 Hepatic encephalopathy K76.82 MARY ELLEN (acute kidney injury) N17.9 Right sided weakness R53.1 Chronic diastolic heart failure I50.32 Depression F32.9 DM2 (diabetes mellitus, type 2) E11.9 GARRETT on CPAP G47.33; Z99.89 HTN (hypertension) I10 HLD (hyperlipidemia) E78.5 GERD (gastroesophageal reflux disease) K21.9 Hypokalemia E87.6 Atypical parkinsonism G20 Contusion of face S00.83XA Cirrhosis K74.60 Neck pain M54.2 DVT prophylaxis Z29.9
[2022-08-10] MEDS ORDERED: LANTUS PER UNIT CHARGE SQ SCH (21:00)
[2022-08-10] MEDS: DULoxetine HCL 60 MG CAP PO SCH (21:48)
[2022-08-10] MEDS: LACTULOSE SYRUP 30 GM/45 ML UDP PO SCH (21:50)
[2022-08-11] MEDS: INSULIN ASPART PER UNIT SC SCH ×4 (08:43→21:19)
[2022-08-11] MEDS: HEPARIN SOD 5,000 UNIT/0.5 ML VIAL SQ SCH ×2 (08:49→21:28)
[2022-08-11] MEDS: CARBIDOPA/LEVODOPA 25/100MG TAB PO SCH ×3 (08:50→21:17)
[2022-08-11] MEDS: rifAXIMin 550 MG TABLET PO SCH ×2 (08:50→21:19)
[2022-08-11] MEDS: ASPIRIN 81 MG ECTAB PO SCH (08:51)
[2022-08-11] MEDS: SERTRALINE HCL 50 MG TABLET PO SCH (08:51)
[2022-08-11] MEDS: PANTOprazole 40 MG TAB PO SCH (08:51)
[2022-08-11] MEDS: LIDOCAINE 5% 1 PATCH TD SCH (08:51)
[2022-08-11] MEDS: DICLOFENAC SOD 1% GEL 100 GM TUBE EXT SCH ×4 (08:52→21:18)
[2022-08-11] MEDS ORDERED: NovoLIN-N (NPH) PER UNIT CHARGE SQ SCH ×2 (09:00→16:30)
--- NOTE | 2022-08-11 09:02 | Pharmacy Report ---
Pharmacy Glycemic Short Note 2 - Date of Service August 11, 2022 - Glycemic Short BSG Results (Last 24 hours): 08/10/22 08/10/22 08/10/22 11:11 16:12 20:40 POC Glucose 276 H 213 H 185 H 08/11/22 07:38 POC Glucose 92 OUTPATIENT ANTIDIABETIC REGIMEN: * U-500 insulin 140 units SC qAM, 10 units SC qPM HbA1c: 6.6% (08/09/22) ASSESSMENT: 08/11/22: * BSG 114 - 276 yesterday. BSG Progressively trended down from noon until dinnertime. FBSG today 92 mg/dL * Yesterday, she received a total of 98 units of insulin (50 units basal and 48 units bolus) * Switched basal insulin to NPH today (60 units AM and 10 units PM with meals) because pt was historically controlled on NPH. 08/10/22: * Persistent hyperglycemia noted yesterday, BSGs ranging (181-309 mg/dL), fasting BSG of 134 mg/dL this morning * Dextrose-containing IV maintenance fluids now discontinued * Patient received 90 units of insulin (40 units of basal and 50 units of prandial/correctional bolus) * Will tighten Novolog parameters today and allow for increased basal (plan to switch to BID NPH tomorrow) 08/09/22: * EW is a 67 year old female known to pharmacy glycemic service * Presented to ED yesterday 08/08 w/ altered mental status and right-sided weakness * Pertinent PMH includes hepatic encephalopathy, CHF, and well-controlled T2DM * MARY ELLEN noted, SCr of 1.63 mg/dL (baseline ~1 mg/dL) * NPO last evening into this morning, ordered diet with lunch today, but per RN, patient is lethargic and only consumed a couple of bites of food * Discussed fluids with hospitalist, will continue D5/LR for now until diet tolerated * In the past, we have utilized NPH insulin to good effect, but will utilize Lantus today until PO intake is consistent/reliable PLAN FOR INPATIENT GLYCEMIC CONTROL: * Basal insulin * NPH 60 units AM and 10 units PM * Bolus insulin - tighten * NovoLog per scale ACHS or Q6hrs while NPO * Goal Range: Low 110 mg/dL - High 140 mg/dL * Correction Factor: 12 mg/dL/unit * Nutritional / Prandial insulin per carb ratio of 1 unit per 3 grams CHO consumed
[2022-08-11] MEDS: LACTULOSE SYRUP 30 GM/45 ML UDP PO SCH ×3 (09:51→21:21)
[2022-08-11 10:08] LABS: Alanine Aminotransferase 29 U/L (7-52); Albumin Globulin Ratio 0.7 (0.9-2); Albumin Level 2.6 gm/dl (3.4-5.0); Alkaline Phosphatase 81 U/L (34-104); Anion Gap 3 (3-11); Aspartate Aminotransferase 54 U/L (13-39); BUN Creatinine Ratio 27.5 (10-20); Bilirubin,Total 1.5 mg/dl (0.2-1.0); Blood Urea Nitrogen 36 mg/dl (6-23); Calcium 8.7 mg/dl (8.5-10.1); Carbon Dioxide 35 mmol/L (21-32); Chloride 100 mmol/L (98-107); Est GFR (African American) 48.7 ml/min; Globulin 3.5 gm/dl (2.5-4.0); Glucose 86 mg/dl (70-99(Fasting)); Magnesium 1.8 mg/dl (1.7-2.4); Potassium 3.9 mmol/L (3.5-5.1); Sodium 138 mmol/L (136-145); Total Protein 6.1 gm/dl (6.0-8.3)
--- NOTE | 2022-08-11 11:27 | Pharmacy Report ---
- Date of Service August 11, 2022 - Pharmacy CVA/TIA Medication Review Medications to Prevent Stroke handout has been added to the patients discharge packet. Antiplatelet(s) * Aspirin 81 mg PO daily Cholesterol * High intensity statin: rosuvastatin 40 mg daily DVT Prophylaxis * Heparin SQ Therapeutic Anticoagulation * No history of Afib/Aflutter noted Type 2 Diabetes * Patient has T2DM, but per Adiel, a diabetes medication with proven CVD benefit will be deferred to their outpatient endocrinology provider due to familiarity with risks/benefits of such therapies. "Medications to prevent stroke" handout has already been added to the patient's discharge packet, which instructs the patient to follow up with their outpatient provider to evaluate which diabetes medication with proven CVD benefit is best for them
--- NOTE | 2022-08-11 11:32 | Gastrointestinal Consultation ---
Date of Consultation August 11, 2022 Assessment & Plan (1) Stroke: (2) Altered mental status: (3) Hepatic encephalopathy: Pt is a 67 yo female w DM II, HLD, CKD III, HTN, SMALL cirrhosis (MELD 13), admitted for AMS likely related to her stroke and hepatic encephalopathy. Mental status improved. - Lactulose 30g TID, titrate for goal BM 3-5. Can add Miralax daily as well if she's not having goal # of BMs - Xifaxan 550mg BID - Protonix 40mg daily - Stroke management per primary team - Will arrange OP GI appt upon her DC for continued cirrhosis care - Sister (Maureen) given updates - 2g Na diet; Avoid ETOH, APAP <2g a day if needed Supervising Physician Co-Signing Physician Notes 67 y/o F with history of decompensated SMALL cirrhosis c/b HE admitted with AMS likely related to acute CVA. GI consulted for HE. Patient at bedside AAOx3 though did not know the president but did answer all other questions appropriately. She did have mild asterixis on exam without any ascites appreciable. She states prior to coming in she did not recieve her lactulose for 2 days as they did not have it at her facility and she felt her mentation was worsening at that time. MELD-Na 13 today. Infectious work up negative. Recommend lactulose and rifaximin and titrate to 4 bowel movements/daily. No need to trend ammonia levels as HE is a clinical diagnosis. Daily MELD labs. Stroke management per primary team. Outpatient hepatology follow up. Thi Tai DO Gastroenterology and Hepatology History of Present Illness Reason for Consultation: Hepatic encephalopathy Requesting Physician: Dr. Manjinder Chun Attending Physician: Manjinder Chun History of Present Illness Pt is a 67 yo female w PMHx of diastolic HR, DM II, HTN, HLD, CKD, SMALL cirrhosis, GERD, gastroparesis, depression who had been [facility], currently admitted for reduced consciousness, found to have hepatic encephalopathic and R occipital stroke. GI consulted per family's request to evaluate her for the encephalopathy. Chart review showed elevated ammonia level of 125, now normalized. LFTs w mild Tbili of 1.5, AST 54 otherwise normal ALT, alk phos. She appears sluggish today but able to converse and answer questions, oriented x 3. She reports that she wasn't getting Lactulose at [facility] x 2 days due to med being unavailable. When she was taking this med, she's having <2 BMs daily. She denies abd pain, n/v, gross s/s of GI bleeding. Allergies Allergy/AdvReac Type Severity Reaction Status Date / Time ciprofloxacin Allergy Intermediate MOUTH Verified 07/29/22 11:27 BLISTERS, HIVES morphine Allergy Intermediate HIVES, Verified 07/29/22 11:27 "DEATHLY ILL", THROWS UP oxycodone Allergy Intermediate HIVES, Verified 07/29/22 11:27 VOMITING penicillin V Allergy Intermediate HIVES Verified 07/29/22 11:27 Home Medications Medication Instructions Recorded Confirmed Type nitroglycerin 0.4 mg sublingual 0.4 mg sublingual UD PRN Chest Pain 10/10/18 08/08/22 History tablet (Nitrostat) rosuvastatin 40 mg tablet 40 mg PO .HS UD 10/10/18 08/08/22 History lancets (OneTouch UltraSoft #100 ea 04/05/20 08/08/22 History Lancets) flash glucose scanning reader #1 ea 06/05/20 08/08/22 Rx (FreeStyle Courtney 2 [place]) BD Ultra-Fine Mini Pen Needle 31 #300 ea 10/30/20 08/08/22 Rx gauge x 3/16" (pen needle, diabetic) nadolol 20 mg tablet 10 mg PO QAM 10/11/21 08/08/22 History albuterol sulfate 90 mcg/actuation 2 puff inhalation Q4 PRN Shortness 12/20/21 08/08/22 Rx aerosol inhaler (ProAir HFA) Of Breath Or Wheezing #8.5 grams potassium chloride 10 mEq 10 meq PO 3XWK 03/26/22 08/08/22 History tablet,extended release spironolactone 100 mg tablet 100 mg PO DAILY 03/26/22 08/08/22 History Shower Chair #1 ea 03/28/22 08/08/22 Rx omeprazole 40 mg capsule,delayed 40 mg PO QAM #90 caps 04/21/22 08/08/22 Rx release duloxetine 60 mg capsule,delayed 60 mg PO HS 05/10/22 08/08/22 History release cranberry fruit 450 mg tablet 450 mg PO DAILY 05/16/22 08/08/22 History (cranberry) insulin regular hum U-500 conc 500 See Rx Instructions .Route .COMPLEX 05/16/22 08/08/22 History unit/mL(3 mL) subcut pen (Humulin R U-500 (Conc) Insulin Kwikpen) magnesium hydroxide 400 mg/5 mL 60 ml PO DAILY PRN constipation 05/20/22 07/29/22 Rx oral suspension (Milk of Magnesia) #355 mL torsemide 40 mg tablet 40 mg PO QAM #90 tabs 06/10/22 08/08/22 Rx sertraline 50 mg tablet (Zoloft) 50 mg PO DAILY 06/27/22 08/08/22 History blood sugar diagnostic #100 ea 07/01/22 08/08/22 Rx flash glucose sensor (FreeStyle #2 ea 07/01/22 08/08/22 Rx Courtney 2 Sensor kit) ondansetron 4 mg disintegrating 4 mg PO Q8 PRN Nausea 07/14/22 08/08/22 History tablet lactulose 20 gram oral packet 20 g PO BID 30 days #30 ea 07/17/22 08/08/22 Rx rifaximin 550 mg tablet (Xifaxan) 550 mg PO BID 30 days #60 tabs 07/17/22 08/08/22 Rx miscellaneous medical supply #1 ea 07/25/22 08/08/22 Rx diclofenac sodium 1 % topical gel 2 g topical QID #100 grams 07/28/22 08/08/22 Rx (Voltaren Arthritis Pain) lidocaine 5 % topical patch 1 patch transdermal QAM #7 ea 08/02/22 08/08/22 Rx carbidopa 10 mg-levodopa 100 mg 1 tab TID 08/08/22 08/08/22 History tablet ezetimibe 10 mg tablet mg 08/08/22 History Patient History Medical History Acute alteration in mental status Acute metabolic encephalopathy Cancer UTERINE CANCER SKIN CANCER Cardiac murmur Chronic kidney disease STAGE 3-4? F/U PCP Congestive heart failure Constipation Diffuse myofascial pain syndrome Diverticular disease DM2 (diabetes mellitus, type 2) IDDM Fall Fatty liver PER PT ROME (generalized anxiety disorder) Gastroparesis GERD (gastroesophageal reflux disease) History of anesthesia reaction difficulty waking History of COVID-19 09/2020 @ [facility]--headache/diarrhea--no issues now HLD (hyperlipidemia) HTN (hypertension) Hx MRSA infection Hypokalemia IBS (irritable bowel syndrome) Migraine Morbid obesity with BMI of 45.0-49.9, adult Nausea and vomiting after administration of anesthetic agent Occasional tremors AT NIGHT GARRETT on CPAP Osteoarthritis Serum ammonia increased Surgical History Cancer MELANOMA SIDE LEFT FACE-EXCISION H/O esophagogastroduodenoscopy H/O eye surgery LASER RT/LEFT FOR HIGH PRESSURE History of appendectomy History of bladder surgery BLADDER TACK History of colonoscopy History of left heart catheterization (LHC) "normal 2001" History of tooth extraction History of total knee replacement RIGHT S/P cholecystectomy S/P [facility]BS[facility] 1983 Family History Father Diabetes Sister Ovarian cancer Family history of diabetes mellitus Sister Family history of diabetes mellitus Mother Breast cancer Family history of reaction to anesthesia slow to wake--n/v Grandmother (Maternal) Myocardial infarction Uncle Prostate cancer Other Cancer Gallbladder disease Heart disease Hypertension Lung disease Denies family history of Colon cancer Social History Smoking Status: Unknown if ever smoked Second Hand Exposure: No; Hx Alcohol Use: No Hx Substance Use: No Preferred Language: Bolivian Communication Ability: Impaired Visual Impairment: No Limitations Hearing Ability: Normal Regrinder Required: No Beliefs That Will Affect Care: None marital status: Current Living Situation: [facility] Current Living Situation Comment: roommate at independent living facility current occupational status: retired current occupation: worked as [employer] Feels Safe at Home: Yes Childhood Exposure to Second-Hand Smoke: Yes Dental Care, Regularly: Yes Physical Activity Frequency: 3-4 Times per Week Seatbelt Use: always Sunscreen Use: Yes Assistive Devices: Walker and Wheelchair Review of Systems Review of Systems: All systems reviewed & are unremarkable except as noted in HPI & below Physical Exam Constitutional: WD/WN, vitals as above well groomed, cooperative and comfortable Eyes: PERRL, conjunctivae normal, anicteric sclerae ENMT: external ear and nose normal, oropharynx normal Respiratory: normal respiratory effort, lungs clear to auscultation Cardiovascular: RRR, no murmur, no edema Gastrointestinal (Abdomen): normal bowel sounds, soft, nontender, no hepatosplenomegaly Skin: no rashes, warm and dry no jaundice Neurologic: Motor/Sensory: + asterixis (mild) Psychiatric: A+Ox3, euthymic affect Lymphatic: no lymphedema Results & Data ([facility]) Vital Signs (Past 12 Hours) Vital Signs Temp Pulse Pulse Resp BP BP Pulse Ox 08/11/22 08:00 79 08/11/22 07:39 36.7 C 77 20 117/66 97 08/11/22 04:19 78 08/11/22 03:03 36.6 C 78 20 112/64 94 08/10/22 23:31 36.6 C 78 18 111/67 96 08/10/22 23:29 80 19 95 O2 Del Method FiO2 08/11/22 08:00 08/11/22 07:39 Room Air 08/11/22 04:19 08/11/22 03:03 Room Air 08/10/22 23:31 CPAP 08/10/22 23:29 21
[2022-08-11] MEDS: POTASSIUM CHLORIDE CRTAB 20 MEQ TABCR PO SCH ×2 (12:59→21:19)
[2022-08-11] MEDS ORDERED: INSULIN HUMAN NPH SC SCH ×2 (16:30)
--- NOTE | 2022-08-11 20:03 | Hospitalist Progress Note ---
Date of Service August 11, 2022 Assessment & Plan (1) Stroke: Plan: R occipital lobe stroke. ? visual field cut on left - will need full eye exam and formal visual field testing after discharge. added asa 81mg daily for secondary prevention. CTAs head/neck negative for stenosis. echo w/o thrombus. tele thus far w/o a.fib. LDL 52 on lipid profile. was taking 40mg crestor daily - resumed; LFTs stable. PT, OT, speech evals appreciated. Appreciate neurology consultation. BPs still low or low-normal - cont to hold nadalol. Perhaps resume tomorrow. (2) Hepatic encephalopathy: Plan: Ammonia level much better - now 69. Clinically improved on exam as well. Cont rifaximin 550mg BID. Cont lactulose 30gm TID - titrate 3-4 BMs/day. Hepatic encephalopathy likely precipitated by lack of lactulose for 2 days last week at [facility]. Acute CVA and stress from such may have contributed as well? No infectious etiology found -- urine cx neg, COVID neg, no pneumonia on cxr, etc. Checked portal vein doppler - not a great study, but no obvious PVT. (3) MARY ELLEN (acute kidney injury): Plan: Cr 1.6 at admission Cr 1.3 today Baseline ~1 Suspect pre-renal etiology - poor PO intake, use of diuretics for cirrhosis, etc Hyaline casts c/w such Recent CPK level wnl BMP am 07/14/22 CT abd/pelvis without hydronephrosis or kidney stones or other significant urinary tract pathology (4) Right sided weakness: Plan: By report from [facility] there was ? right sided weakness. Since coming here she has not had such. MRI brain without pathology to explain any focal limb weakness. Perhaps there was generalized weakness in setting of hepatic encephalopathy? cont PT/OT. will d/c to [facility] for rehab after this stay. (5) Chronic diastolic heart failure: Plan: Holding torsemide and spironolactone for MARY ELLEN. Typically on nadalol for portal HTN - cont to hold. IV fluids stopped. Likely resume diuretics in the next 1-2 days. (6) Depression: Plan: Continue duloxetine. (7) DM2 (diabetes mellitus, type 2): Plan: pharmacy has been consulted for glycemic management. HbA1C was 6.6% cont basal-bolus insulins - adjustments per pharmacy appreciated (8) GARRETT on CPAP: Plan: CPAP HS and prn. (9) HTN (hypertension): Plan: controlled recently her NOELLE was discontinued nadalol currently on hold due to low-normal BPs and acute CVA (10) HLD (hyperlipidemia): Plan: Cont statin Chronically abnl LFTs (from her cirrhosis) are stable (11) GERD (gastroesophageal reflux disease): Plan: Continue pantoprazole daily. 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 dx with possible parkinsonism - initiated on carbidopa-levodopa 0.5 tab TID. continue with such (14) Contusion of face: Plan: right eye since her falls earlier this month she has had headaches can't rule out concussion injury at that time (15) Cirrhosis: Plan: 2nd to SMALL now with resolving hepatic encephalopathy as above otherwise appears compensated from volume standpoint ultimately will need nadalol and diuretics resumed family requesting [facility] GI consult - they did see her in consult today no specific recs at this time cont same meds portal vein doppler neg for obvious PVT (16) Neck pain: Plan: 07/29/[address] without fracture in the setting of her prior falls added voltaren gel 4gm QID to posterior neck for pain relief still complaining of pain today - some of the pain could be from her stroke. re-eval tomorrow. 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 neck - posterior - tender to palpation paraspinal region; tender over R occipital portion of skull to palpation heart - RRR, s1 s2, no murmur lungs - CTA B/l abd - soft, nontender, liver edge not palpable; BS+ ext - trace edema b/l, pulses 2+ b/l neuro - strength 5/5 upper extremities; no asterixis psych - a/o to person and place and time today Results & Data Results & Data ([facility]) Vital Signs (Past 12 Hours) Vital Signs Temp Pulse Resp BP BP Pulse Ox O2 Del Method 08/11/22 15:51 36.7 C 75 18 113/65 97 Room Air 08/11/22 11:30 36.8 C 81 16 99/62 L 93 Room Air Laboratory Results Laboratory Results - last 24 hr 08/10/22 08/11/22 08/11/22 20:40 07:38 07:49 Sodium 138 Potassium 3.9 Chloride 100 Carbon Dioxide 35 H Anion Gap 3 BUN 36 H Creatinine 1.31 H Est Cr Clr Drug Dosing Not Reportable Est GFR ( Amer) 48.7 Est GFR (Non-Af Amer) 42.0 BUN/Creatinine Ratio 27.5 H Glucose 86 POC Glucose 185 H 92 Calcium 8.7 Magnesium 1.8 Total Bilirubin 1.5 H AST 54 H ALT 29 Alkaline Phosphatase 81 Ammonia Total Protein 6.1 Albumin 2.6 L Globulin 3.5 Albumin/Globulin Ratio 0.7 L 08/11/22 08/11/22 08/11/22 07:49 11:32 16:28 Sodium Potassium Chloride Carbon Dioxide Anion Gap BUN Creatinine Est Cr Clr Drug Dosing Est GFR ( Amer) Est GFR (Non-Af Amer) BUN/Creatinine Ratio Glucose POC Glucose 160 H 118 H Calcium Magnesium Total Bilirubin AST ALT Alkaline Phosphatase Ammonia 69.0 Total Protein Albumin Globulin Albumin/Globulin Ratio PG Care Time/CCT Total # of Minutes Spent Total Time Spent with Patient: Total time spent is greater than 50% in coordination of care (as documented) at patient's floor/unit and/or counseling patient: Coding Level of Care Code 54981 SUB INP/OBS CARE 2/35MIN Diagnoses Stroke I63.9 Hepatic encephalopathy K76.82 MARY ELLEN (acute kidney injury) N17.9 Right sided weakness R53.1 Chronic diastolic heart failure I50.32 Depression F32.9 DM2 (diabetes mellitus, type 2) E11.9 GARRETT on CPAP G47.33; Z99.89 HTN (hypertension) I10 HLD (hyperlipidemia) E78.5 GERD (gastroesophageal reflux disease) K21.9 Hypokalemia E87.6 Atypical parkinsonism G20 Contusion of face S00.83XA Cirrhosis K74.60 Neck pain M54.2 DVT prophylaxis Z29.9
[2022-08-11] MEDS: ROSUVASTATIN CALCIUM 20 MG TAB PO SCH (21:18)
[2022-08-11] MEDS: DULoxetine HCL 60 MG CAP PO SCH (21:19)
--- NOTE | 2022-08-12 07:15 | CT Scan Report ---
CERVICAL SPINE CT CT DOSE: 384.94 mGy.cm HISTORY: fall 2 weeks ago, ongoing neck pain; eval Fx TECHNIQUE: Multiaxial CT images of the cervical spine were performed and reformatted in the sagittal and coronal plane without the use of contrast. A dose lowering technique was utilized adhering to th e principles of ALARA. COMPARISON: None. FINDINGS: No fractures. No subluxation. Prevertebral soft tissues and the C1-C2 interval are intact. No pneumothorax. IMPRESSION: No fractures within the cervical spine. ACT 112: Negative or not required by law. Electronically signed by: Modesto Toro M.D. 08/12/2022 7:13 AM
[2022-08-12] MEDS ORDERED: NovoLIN-N (NPH) PER UNIT CHARGE SQ SCH (07:30)
[2022-08-12 07:38] LABS: Albumin Level 2.6 gm/dl (3.4-5.0); Anion Gap 4 (3-11); Bilirubin,Total 1.4 mg/dl (0.2-1.0); Calcium 9.1 mg/dl (8.5-10.1); Carbon Dioxide 32 mmol/L (21-32); Chloride 100 mmol/L (98-107); Potassium 3.6 mmol/L (3.5-5.1); Sodium 136 mmol/L (136-145)
[2022-08-12 07:44] LABS: Alanine Aminotransferase 36 U/L (7-52); Albumin Globulin Ratio 0.7 (0.9-2); Alkaline Phosphatase 84 U/L (34-104); Aspartate Aminotransferase 58 U/L (13-39); BUN Creatinine Ratio 23.3 (10-20); Blood Urea Nitrogen 27 mg/dl (6-23); Est GFR (African American) 56.4 ml/min; Est GFR (Non-African American) 48.7 ml/min; Globulin 3.8 gm/dl (2.5-4.0); Glucose 77 mg/dl (70-99(Fasting)); Total Protein 6.4 gm/dl (6.0-8.3)
[2022-08-12] MEDS: INSULIN ASPART PER UNIT SC SCH ×4 (08:15→20:06)
[2022-08-12] MEDS: CARBIDOPA/LEVODOPA 25/100MG TAB PO SCH ×3 (08:20→19:47)
[2022-08-12] MEDS: PANTOprazole 40 MG TAB PO SCH (08:20)
[2022-08-12] MEDS: SERTRALINE HCL 50 MG TABLET PO SCH (08:20)
[2022-08-12] MEDS: POTASSIUM CHLORIDE CRTAB 20 MEQ TABCR PO SCH ×2 (08:20→19:50)
[2022-08-12] MEDS: rifAXIMin 550 MG TABLET PO SCH ×2 (08:20→19:50)
[2022-08-12] MEDS: ASPIRIN 81 MG ECTAB PO SCH (08:20)
[2022-08-12] MEDS: HEPARIN SOD 5,000 UNIT/0.5 ML VIAL SQ SCH ×2 (08:21→19:50)
[2022-08-12] MEDS: LIDOCAINE 5% 1 PATCH TD SCH (08:21)
[2022-08-12] MEDS: LACTULOSE SYRUP 30 GM/45 ML UDP PO SCH ×3 (08:21→20:04)
[2022-08-12] MEDS: DICLOFENAC SOD 1% GEL 100 GM TUBE EXT SCH ×4 (08:21→19:48)
[2022-08-12] MEDS ORDERED: INSULIN HUMAN NPH SC SCH (08:30)
--- NOTE | 2022-08-12 13:22 | Pharmacy Report ---
Pharmacy Glycemic Short Note 2 - Date of Service August 12, 2022 - Glycemic Short BSG Results (Last 24 hours): 08/11/22 08/11/22 08/12/22 16:28 21:19 06:26 Glucose 77 POC Glucose 118 H 89 08/12/22 08/12/22 07:14 11:20 Glucose POC Glucose 99 145 H OUTPATIENT ANTIDIABETIC REGIMEN: * U-500 insulin 140 units SC qAM, 10 units SC qPM HbA1c: 6.6% (08/09/22) ASSESSMENT: 08/12/22 * BSG 89 - 160 mg/dL. Received a total of 105 units of insulin (70 units basal [NPH] and 35 units bolus). * FBSG today 99 mg/dL - slightly below fasting goal * Loosened carb ratio to 4g/unit. Will use a scale for basal tonight 08/11/22: * BSG 114 - 276 yesterday. BSG Progressively trended down from noon until dinnertime. FBSG today 92 mg/dL * Yesterday, she received a total of 98 units of insulin (50 units basal and 48 units bolus) * Switched basal insulin to NPH today (60 units AM and 10 units PM with meals) because pt was historically controlled on NPH. 08/10/22: * Persistent hyperglycemia noted yesterday, BSGs ranging (181-309 mg/dL), fasting BSG of 134 mg/dL this morning * Dextrose-containing IV maintenance fluids now discontinued * Patient received 90 units of insulin (40 units of basal and 50 units of prandial/correctional bolus) * Will tighten Novolog parameters today and allow for increased basal (plan to switch to BID NPH tomorrow) 08/09/22: * EW is a 67 year old female known to pharmacy glycemic service * Presented to ED yesterday 08/08 w/ altered mental status and right-sided weakness * Pertinent PMH includes hepatic encephalopathy, CHF, and well-controlled T2DM * MARY ELLEN noted, SCr of 1.63 mg/dL (baseline ~1 mg/dL) * NPO last evening into this morning, ordered diet with lunch today, but per RN, patient is lethargic and only consumed a couple of bites of food * Discussed fluids with hospitalist, will continue D5/LR for now until diet tolerated * In the past, we have utilized NPH insulin to good effect, but will utilize Lantus today until PO intake is consistent/reliable PLAN FOR INPATIENT GLYCEMIC CONTROL: * Basal insulin * NPH 60 units AM and a 0/10 units scale PM * Bolus insulin - tighten * NovoLog per scale ACHS or Q6hrs while NPO * Goal Range: Low 110 mg/dL - High 140 mg/dL * Correction Factor: 12 mg/dL/unit * Nutritional / Prandial insulin per carb ratio of 1 unit per 4 grams CHO consumed
[2022-08-12] MEDS: INSULIN HUMAN NPH SC SCH (16:49)
[2022-08-12] MEDS: DULoxetine HCL 60 MG CAP PO SCH (19:49)
[2022-08-12] MEDS: ROSUVASTATIN CALCIUM 20 MG TAB PO SCH (19:51)
--- NOTE | 2022-08-12 22:38 | Hospitalist Progress Note ---
Date of Service August 12, 2022 Assessment & Plan (1) Stroke: Plan: R occipital lobe stroke. ? visual field cut on left - will need full eye exam and formal visual field testing after discharge. continue asa 81mg daily for secondary prevention. CTAs head/neck negative for stenosis. echo w/o thrombus. tele w/o a.fib --> consider 30-day event monitor post-discharge. LDL 52 on lipid profile. was taking 40mg crestor daily - resumed; LFTs stable. PT, OT, speech evals appreciated. Appreciate neurology consultation. BPs still low or low-normal - cont to hold nadalol. (2) Hepatic encephalopathy: Plan: Biochemically & Clinically improved. Cont rifaximin 550mg BID. Cont lactulose 30gm TID - titrate 3-4 BMs/day. Hepatic encephalopathy likely precipitated by lack of lactulose for 2 days last week at [facility]. Acute CVA and stress from such may have contributed as well? No infectious etiology found -- urine cx neg, COVID neg, no pneumonia on cxr, etc. Checked portal vein doppler - suboptimal study, but no obvious PVT. (3) MARY ELLEN (acute kidney injury): Plan: Cr 1.6 at admission Cr 1.1 today resolved Suspect pre-renal etiology - poor PO intake, use of diuretics for cirrhosis, etc Hyaline casts c/w such Recent CPK level wnl BMP am once again 07/14/22 CT abd/pelvis without hydronephrosis or kidney stones or other s ignificant urinary tract pathology (4) Right sided weakness: Plan: By report from [facility] there was ? right sided weakness. Since coming here she has not had such. MRI brain without pathology to explain any focal limb weakness. Perhaps there was generalized weakness in setting of hepatic encephalopathy? cont PT/OT. will d/c to [facility] for rehab after this stay. (5) Chronic diastolic heart failure: Plan: compensated Holding torsemide and spironolactone for MARY ELLEN. Typically on nadalol for portal HTN - cont to hold. NO further IVF. Likely resume diuretics in the next 1-2 days. (6) Depression: Plan: Continue duloxetine. (7) DM2 (diabetes mellitus, type 2): Plan: pharmacy has been consulted for glycemic management - appreciate their assistance. HbA1C was 6.6% cont basal-bolus insulins - adjustments per pharmacy appreciated (8) GARRETT on CPAP: Plan: CPAP HS and prn. (9) HTN (hypertension): Plan: controlled recently her NOELLE was discontinued nadalol currently on hold due to low-normal BPs and acute CVA (10) HLD (hyperlipidemia): Plan: Cont statin Chronically abnl LFTs (from her SMALL cirrhosis) are stable (11) GERD (gastroesophageal reflux disease): Plan: Continue pantoprazole daily. 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 dx with possible parkinsonism - initiated on carbidopa-levodopa 0.5 tab TID. continue sinemet (14) Contusion of face: Plan: right eye since her falls earlier this month she has had headaches can't rule out concussion injury at that time (15) Cirrhosis: Plan: 2nd to SMALL now with resolving hepatic encephalopathy as above otherwise appears compensated from volume standpoint ultimately will need nadalol and diuretics resumed family requested [facility] consult no specific recs at this time cont same meds portal vein doppler neg for obvious PVT (16) Neck pain: Plan: 07/29/[address] without fracture in the setting of her prior falls added voltaren gel 4gm QID to posterior neck for pain relief due to ongoing pain I recheck c-spine CT yesterday - negative for fracture or other acute pathology NO radicular symptoms of arms could consider MRI c-spine but hold off for now (17) DVT prophylaxis: Plan: heparin 5000 BID (18) Concussion: Plan: 2nd to fall 07/28/22 daily headaches, feeling unwell, etc since then occasional nausea could be from concussion as well supportive care has had extensive head imaging since her fall earlier this month Plan updated pt's son Chiki by phone yesterday dispo - back to [facility] at discharge, hopefully within next 48 hours Admission and Anticipated Discharge Date Admission Date: August 08, 2022 Subjective tele overnight wnl patient with improving appetite only complaint is that of ongoing pain over occipital region mild neck pain no dyspnea no chest pain no abd pain nausea has improved - attributes it to lactulose only 1 BM today Review of Systems Review of Systems: gen - no fever cv - no orthopnea, no chest pain pulm - no cough neuro - no paresthesias or weakness of arms/hands Physical Exam Physical Exam: gen - sitting in chair; NAD; awake/alert head - right eye ecchymoses - resolving neck - posterior - tender to palpation paraspinal region; tender over R occipital portion of skull to palpation heart - RRR, s1 s2, no murmur lungs - CTA B/l abd - soft, nontender, liver edge not palpable; BS+ ext - <1+ edema b/l, pulses 2+ b/l neuro - strength 5/5 upper extremities; no asterixis psych - alert & oriented x 3 Results & Data Results & Data ([facility]) Vital Signs (Past 12 Hours) Vital Signs Temp Pulse Pulse Resp BP BP Pulse Ox 08/12/22 22:00 36.6 C 79 20 95/58 L 95 08/12/22 19:04 36.7 C 80 16 108/61 96 08/12/22 15:00 36.5 C 77 18 100/57 L 95 08/12/22 16:00 80 08/12/22 11:04 36.6 C 81 18 108/66 94 O2 Del Method 08/12/22 22:00 Room Air 08/12/22 19:04 Room Air 08/12/22 15:00 Room Air 08/12/22 16:00 08/12/22 11:04 Room Air Laboratory Results BMP wnl with creatinine 1.[address] Diagnostic [address]ICAL SPINE [address] CT DOSE: 384.94 mGy.cm HISTORY: fall 2 weeks ago, ongoing neck pain; eval Fx TECHNIQUE: Multiaxial CT images of the cervical spine were performed and reformatted in the sagittal and coronal plane without the use of contrast. A dose lowering technique was utilized adhering to the principles of ALARA. COMPARISON: None. FINDINGS: No fractures. No subluxation. Prevertebral soft tissues and the C1-C2 interval are intact. No pneumothorax. IMPRESSION: No fractures within the cervical spine. ACT 112: Negative or not required by law. Electronically signed by: Modesto Toro M.D. 08/12/2022 7:13 AM PG Care Time/CCT Total # of Minutes Spent Total Time Spent with Patient: Total time spent is greater than 50% in coordination of care (as documented) at patient's floor/unit and/or counseling patient: Coding Level of Care Code 33247 SUB INP/OBS CARE MIN Diagnoses Stroke I63.9 Hepatic encephalopathy K76.82 MARY ELLEN (acute kidney injury) N17.9 Right sided weakness R53.1 Chronic diastolic heart failure I50.32 Depression F32.9 DM2 (diabetes mellitus, type 2) E11.9 GARRETT on CPAP G47.33; Z99.89 HTN (hypertension) I10 HLD (hyperlipidemia) E78.5 GERD (gastroesophageal reflux disease) K21.9 Hypokalemia E87.6 Atypical parkinsonism G20 Contusion of face S00.83XA Cirrhosis K74.60 Neck pain M54.2 DVT prophylaxis Z29.9 Concussion S06.0XAA
[2022-08-13 07:31] LABS: Anion Gap 4 (3-11); BUN Creatinine Ratio 23.6 (10-20); Blood Urea Nitrogen 25 mg/dl (6-23); Calcium 8.8 mg/dl (8.5-10.1); Carbon Dioxide 30 mmol/L (21-32); Chloride 101 mmol/L (98-107); Est GFR (African American) 62.9 ml/min; Est GFR (Non-African American) 54.3 ml/min; Glucose 109 mg/dl (70-99(Fasting)); Potassium 3.7 mmol/L (3.5-5.1); Sodium 135 mmol/L (136-145)
[2022-08-13] MEDS: rifAXIMin 550 MG TABLET PO SCH ×2 (08:19→21:29)
[2022-08-13] MEDS: CARBIDOPA/LEVODOPA 25/100MG TAB PO SCH ×3 (08:20→21:25)
[2022-08-13] MEDS: HEPARIN SOD 5,000 UNIT/0.5 ML VIAL SQ SCH ×2 (08:21→21:27)
[2022-08-13] MEDS: PANTOprazole 40 MG TAB PO SCH (08:21)
[2022-08-13] MEDS: ASPIRIN 81 MG ECTAB PO SCH (08:21)
[2022-08-13] MEDS: POTASSIUM CHLORIDE CRTAB 20 MEQ TABCR PO SCH ×2 (08:21→21:28)
[2022-08-13] MEDS: SERTRALINE HCL 50 MG TABLET PO SCH (08:21)
[2022-08-13] MEDS: LIDOCAINE 5% 1 PATCH TD SCH (08:22)
[2022-08-13] MEDS: LACTULOSE SYRUP 30 GM/45 ML UDP PO SCH ×3 (08:22→21:23)
[2022-08-13] MEDS: INSULIN ASPART PER UNIT SC SCH ×4 (08:26→21:17)
[2022-08-13] MEDS: DICLOFENAC SOD 1% GEL 100 GM TUBE EXT SCH ×4 (08:26→21:31)
[2022-08-13] MEDS: INSULIN HUMAN NPH SC SCH ×2 (08:28→17:28)
--- NOTE | 2022-08-13 18:48 | Hospitalist Progress Note ---
Date of Service August 13, 2022 Assessment & Plan (1) Stroke: Plan: R occipital lobe stroke. ? visual field cut on left - will need full eye exam and formal visual field testing after discharge. added asa 81mg daily for secondary prevention. CTAs head/neck negative for stenosis. echo w/o thrombus. tele thus far w/o a.fib. LDL 52 on lipid profile. was taking 40mg crestor daily - resumed; LFTs stable. PT, OT, speech evals appreciated. Appreciate neurology consultation. BPs still low or low-normal - cont to hold nadalol. Perhaps resume tomorrow. (2) Hepatic encephalopathy: Plan: Ammonia level much better - now 69. Clinically improved on exam as well. Cont rifaximin 550mg BID. Cont lactulose 30gm TID - titrate 3-4 BMs/day. Hepatic encephalopathy likely precipitated by lack of lactulose for 2 days last week at [facility]. Acute CVA and stress from such may have contributed as well? No infectious etiology found -- urine cx neg, COVID neg, no pneumonia on cxr, etc. Checked portal vein doppler - not a great study, but no obvious PVT. (3) MARY ELLEN (acute kidney injury): Plan: Cr 1.6 at admission Improving Baseline ~1 Suspect pre-renal etiology - poor PO intake, use of diuretics for cirrhosis, etc Hyaline casts c/w such Recent CPK level wnl BMP am 07/14/22 CT abd/pelvis without hydronephrosis or kidney stones or other significant urinary tract pathology (4) Right sided weakness: Plan: By report from [facility] there was ? right sided weakness. Since coming here she has not had such. MRI brain without pathology to explain any focal limb weakness. Perhaps there was generalized weakness in setting of hepatic encephalopathy? cont PT/OT. will d/c to [facility] for rehab after this stay. (5) Chronic diastolic heart failure: Plan: Holding torsemide and spironolactone for MARY ELLEN. Typically on nadalol for portal HTN - cont to hold. IV fluids stopped. Likely resume diuretics in the next 1-2 days. (6) Depression: Plan: Continue duloxetine. (7) DM2 (diabetes mellitus, type 2): Plan: pharmacy has been consulted for glycemic management. HbA1C was 6.6% cont basal-bolus insulins - adjustments per pharmacy appreciated (8) GARRETT on CPAP: Plan: CPAP HS and prn. (9) HTN (hypertension): Plan: controlled recently her NOELLE was discontinued nadalol currently on hold due to low-normal BPs and acute CVA (10) HLD (hyperlipidemia): Plan: Cont statin Chronically abnl LFTs (from her cirrhosis) are stable (11) GERD (gastroesophageal reflux disease): Plan: Continue pantoprazole daily. 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 dx with possible parkinsonism - initiated on carbidopa-levodopa 0.5 tab TID. continue with such (14) Contusion of face: Plan: right eye since her falls earlier this month she has had headaches can't rule out concussion injury at that time (15) Cirrhosis: Plan: 2nd to SMALL now with resolving hepatic encephalopathy as above otherwise appears compensated from volume standpoint ultimately will need nadalol and diuretics resumed family requesting [facility] consult - they did see her in consult today no specific recs at this time cont same meds portal vein doppler neg for obvious PVT (16) Neck pain: Plan: 07/29/[address] without fracture in the setting of her prior falls added voltaren gel 4gm QID to posterior neck for pain relief still complaining of pain today - some of the pain could be from her stroke. re-eval tomorrow. (17) DVT prophylaxis: Plan: heparin 5000 BID (18) Concussion: Plan: 2nd to fall 07/28/22 daily headaches, feeling unwell, etc since then occasional nausea could be from concussion as well supportive care has had extensive head imaging since her fall earlier this month Plan updated pt's son Chiki by phone today dispo - back to [facility] at discharge, hopefully in 48 hours Admission and Anticipated Discharge Date Admission Date: August 08, 2022 Subjective No complaint today possible discharge tomorrow Physical Exam Physical Exam: gen - sitting in chair; NAD; awake/alert head - right eye ecchymoses - resolving neck - posterior - tender to palpation paraspinal region; tender over R occipital portion of skull to palpation heart - RRR, s1 s2, no murmur lungs - CTA B/l abd - soft, nontender, liver edge not palpable; BS+ ext - <1+ edema b/l, pulses 2+ b/l neuro - strength 5/5 upper extremities; no asterixis psych - alert & oriented x 3 Constitutional: WD/WN, vitals as above well groomed, cooperative and comfortable Eyes: PERRL, conjunctivae normal, anicteric sclerae ENMT: external ear and nose normal, oropharynx normal Respiratory: normal respiratory effort, lungs clear to auscultation Cardiovascular: RRR, no murmur, no edema Gastrointestinal (Abdomen): normal bowel sounds, soft, nontender, no hepatosplenomegaly Skin: no rashes, warm and dry no jaundice Neurologic: Motor/Sensory: + asterixis (mild) Psychiatric: A+Ox3, euthymic affect Lymphatic: no lymphedema Results & Data Results & Data ([facility]) Vital Signs (Past 12 Hours) Vital Signs Temp Pulse Pulse Resp BP Pulse Ox O2 Del Method 08/13/22 17:19 36.7 C 82 18 126/62 97 Room Air 08/13/22 13:49 80 08/13/22 08:20 Room Air 08/13/22 08:10 36.6 C 79 18 92/56 L 96 Room Air PG Care Time/CCT Total # of Minutes Spent Total Time Spent with Patient: Total time spent is greater than 50% in coordination of care (as documented) at patient's floor/unit and/or counseling patient: Coding Level of Care Code 26908 SUB INP/OBS CARE 2/35MIN Diagnoses Stroke I63.9 Hepatic encephalopathy K76.82 MARY ELLEN (acute kidney injury) N17.9 Right sided weakness R53.1 Chronic diastolic heart failure I50.32 Depression F32.9 DM2 (diabetes mellitus, type 2) E11.9 GARRETT on CPAP G47.33; Z99.89 HTN (hypertension) I10 HLD (hyperlipidemia) E78.5 GERD (gastroesophageal reflux disease) K21.9 Hypokalemia E87.6 Atypical parkinsonism G20 Contusion of face S00.83XA Cirrhosis K74.60 Neck pain M54.2 DVT prophylaxis Z29.9 Concussion S06.0XAA
[2022-08-13] MEDS: DULoxetine HCL 60 MG CAP PO SCH (21:26)
[2022-08-13] MEDS: ROSUVASTATIN CALCIUM 20 MG TAB PO SCH (21:29)
[2022-08-14] MEDS: LIDOCAINE 5% 1 PATCH TD SCH (08:09)
[2022-08-14] MEDS: rifAXIMin 550 MG TABLET PO SCH (08:10)
[2022-08-14] MEDS: SERTRALINE HCL 50 MG TABLET PO SCH (08:10)
[2022-08-14] MEDS: ASPIRIN 81 MG ECTAB PO SCH (08:10)
[2022-08-14] MEDS: LACTULOSE SYRUP 30 GM/45 ML UDP PO SCH (08:10)
[2022-08-14] MEDS: POTASSIUM CHLORIDE CRTAB 20 MEQ TABCR PO SCH (08:10)
[2022-08-14] MEDS: HEPARIN SOD 5,000 UNIT/0.5 ML VIAL SQ SCH (08:11)
[2022-08-14] MEDS: DICLOFENAC SOD 1% GEL 100 GM TUBE EXT SCH ×2 (08:12→12:28)
[2022-08-14] MEDS: CARBIDOPA/LEVODOPA 25/100MG TAB PO SCH (08:12)
[2022-08-14] MEDS: PANTOprazole 40 MG TAB PO SCH (08:13)
[2022-08-14] MEDS: INSULIN HUMAN NPH SC SCH (08:17)
[2022-08-14] MEDS: INSULIN ASPART PER UNIT SC SCH ×2 (08:19→12:30)
[2022-08-14 08:21] LABS: Anion Gap 3 (3-11); BUN Creatinine Ratio 21.9 (10-20); Blood Urea Nitrogen 21 mg/dl (6-23); Calcium 8.9 mg/dl (8.5-10.1); Carbon Dioxide 30 mmol/L (21-32); Chloride 102 mmol/L (98-107); Est GFR (African American) 70.9 ml/min; Est GFR (Non-African American) 61.2 ml/min; Glucose 100 mg/dl (70-99(Fasting)); Potassium 4.2 mmol/L (3.5-5.1); Sodium 135 mmol/L (136-145)
[2022-08-14 13:04] LABS: Hematocrit (blood only) 35.5 % (37.0-47.0); Hemoglobin 12.5 g/dl (12.0-16.0); Mean Corpuscular Hemoglobin 30.9 pg (25.0-34.0); Mean Corpuscular Hgb Conc 35.2 g/dL (32.0-36.0); Mean Corpuscular Volume 87.9 fL (80.0-100.0); Mean Platelet Volume 10.7 fL (9.4-12.4); Platelet Count 137 K/uL (130-400); RDW Coefficient of Variation 14.1 % (11.5-14.5); RDW Standard Deviation 44.8 fL (36.4-46.3); Red Blood Count 4.04 M/uL (4.20-5.40); White Blood Count 7.31 K/ul (4.8-10.8)
[2022-08-14] MEDS ORDERED: STROKE PATIENT DISCHARGE STA (13:23)
--- NOTE | 2022-08-14 19:04 | Discharge Summary ---
Date of Service August 14, 2022 Admission HPI Per Admitting Provider Indu Carbone is a 67-year-old female with a past medical history significant for diastolic heart failure, IDDM, hypertension, hyperlipidemia, CKD, SMALL cirrhosis, GERD, gastroparesis, and depression with anxiety is presenting today from [facility]. She has been there for the last week since discharge on 08/02 from our facility. Yesterday she had mentioned feeling generally unwell without any specific complaints. This morning staff by palpation and patient was found to be minimally responsive. EMS was summoned, BSG on arrival 87 and right-sided weakness had been noted along with minimal responsiveness. On arrival patient is drowsy with reduced consciousness but arousable, can follow some basic commands such as wiggling toes, squeezing fingers, but is alert and oriented x0. Voices no specific complaints. Vital signs within normal limits. Labs notable for potassium slightly low at 3.2, chloride 90, CO2 40, BUN 43, at baseline but creatinine elevated 1.69, baseline 0.81.0. Glucose elevated here at 175, chronically elevated T bili at 1.1, AST 74 and ammonia 100. Her troponin is 24.3. Head CT without hemorrhage, mass-effect or evidence of acute territorial ischemia, CTA of the head and neck unremarkable. There is patchy nodular airspace opacities are partially visualized in the right upper lobe and may represent a mild pneumonitis. Clinical correlation will be required. A follow-up chest CT in 2-3 weeks' time is recommended to document resolution and exclude underlying pulmonary lesion. CXR shows cardiomegaly without active disease in the chest. Principal Diagnosis Stroke hepatic encephalopathy Discharge Exam gen - sitting in chair; NAD; awake/alert head - right eye ecchymoses - resolving neck - posterior - tender to palpation paraspinal region; tender over R occipital portion of skull to palpation heart - RRR, s1 s2, no murmur lungs - CTA B/l abd - soft, nontender, liver edge not palpable; BS+ ext - <1+ edema b/l, pulses 2+ b/l neuro - strength 5/5 upper extremities; no asterixis psych - alert & oriented x 3 Constitutional WD/WN, vitals as above well groomed, cooperative and comfortable Eyes PERRL, conjunctivae normal, anicteric sclerae ENMT external ear and nose normal, oropharynx normal Respiratory normal respiratory effort, lungs clear to auscultation Cardiovascular RRR, no murmur, no edema Gastrointestinal (Abdomen) normal bowel sounds, soft, nontender, no hepatosplenomegaly Skin no rashes, warm and dry no jaundice Neurologic Motor/Sensory: + asterixis (mild) Psychiatric A+Ox3, euthymic affect Lymphatic no lymphedema Discharge Data Allergies Allergy/AdvReac Type Severity Reaction Status Date / Time ciprofloxacin Allergy Intermediate MOUTH Verified 07/29/22 11:27 BLISTERS, HIVES morphine Allergy Intermediate HIVES, Verified 07/29/22 11:27 "DEATHLY ILL", THROWS UP oxycodone Allergy Intermediate HIVES, Verified 07/29/22 11:27 VOMITING penicillin V Allergy Intermediate HIVES Verified 07/29/22 11:27 Consultations 08/08/22 10:58 ED Decision to Admit Stat 08/10/22 07:00 Consult Neurology Routine 08/11/22 08:43 Consult Gastroenterology Routine Ordered Studies 08/08/22 07:54 CT angio head w con Stat CT angio neck with con Stat CT head/brain wo con Stat 08/08/22 11:19 MRI Brain [MR brain wo con] Routine 08/10/22 08:12 US portal veins doppler [US duplex portal hepatic veins] Routine 08/11/22 16:05 CT cervical spine wo con Routine Hospital Course (1) Stroke: R occipital lobe stroke. ? visual field cut on left - will need full eye exam and formal visual field testing after discharge. added asa 81mg daily for secondary prevention. CTAs head/neck negative for stenosis. echo w/o thrombus. tele thus far w/o a.fib. LDL 52 on lipid profile. was taking 40mg crestor daily - resumed; LFTs stable. PT, OT, speech evals appreciated. Appreciate neurology consultation. BPs still low or low-normal - cont to hold nadalol. Perhaps resume tomorrow. (2) Hepatic encephalopathy: Ammonia level much better - now 69. Clinically improved on exam as well. Cont rifaximin 550mg BID. Cont lactulose 30gm TID - titrate 3-4 BMs/day. Hepatic encephalopathy likely precipitated by lack of lactulose for 2 days last week at SNF. Acute CVA and stress from such may have contributed as well? No infectious etiology found -- urine cx neg, COVID neg, no pneumonia on cxr, etc. Checked portal vein doppler - not a great study, but no obvious PVT. (3) MARY ELLEN (acute kidney injury): Cr 1.6 at admission Improving Baseline ~1 Suspect pre-renal etiology - poor PO intake, use of diuretics for cirrhosis, etc Hyaline casts c/w such Recent CPK level wnl 07/14/22 CT abd/pelvis without hydronephrosis or kidney stones or other significant urinary tract pathology (4) Right sided weakness: By report from [facility] there was ? right sided weakness. Since coming here she has not had such. MRI brain without pathology to explain any focal limb weakness. Perhaps there was generalized weakness in setting of hepatic encephalopathy? cont PT/OT. will d/c to [facility] for rehab after this stay. (5) Chronic diastolic heart failure: Holding torsemide and spironolactone for MARY ELLEN. Typically on nadalol for portal HTN - cont to hold. IV fluids stopped. Likely resume diuretics in the next 1-2 days. (6) Depression: Continue duloxetine. (7) DM2 (diabetes mellitus, type 2): pharmacy has been consulted for glycemic management. HbA1C was 6.6% cont basal-bolus insulins - adjustments per pharmacy appreciated (8) GARRETT on CPAP: CPAP HS and prn. (9) HTN (hypertension): controlled recently her NOELLE was discontinued nadalol currently on hold due to low-normal BPs and acute CVA (10) HLD (hyperlipidemia): Cont statin Chronically abnl LFTs (from her cirrhosis) are stable (11) GERD (gastroesophageal reflux disease): Continue pantoprazole daily. 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 dx with possible parkinsonism - initiated on carbidopa-levodopa 0.5 tab TID. continue with such (14) Contusion of face: right eye since her falls earlier this month she has had headaches can't rule out concussion injury at that time (15) Cirrhosis: 2nd to SMALL now with resolving hepatic encephalopathy as above otherwise appears compensated from volume standpoint ultimately will need nadalol and diuretics resumed family requesting [facility] GI consult - they did see her in consult today no specific recs at this time cont same meds portal vein doppler neg for obvious PVT (16) Neck pain: 07/29/[address] without fracture in the setting of her prior falls added voltaren gel 4gm QID to posterior neck for pain relief still complaining of pain today - some of the pain could be from her stroke. re-eval tomorrow. (17) DVT prophylaxis: heparin 5000 BID (18) Concussion: 2nd to fall 07/28/22 daily headaches, feeling unwell, etc since then occasional nausea could be from concussion as well supportive care has had extensive head imaging since her fall earlier this month Plan updated pt's son Chiki by phone today dispo - back to [facility] at discharge, hopefully in 48 hours Total Time Total Time Spent Total Time Spent (In Minutes): 45 Discharge Plan Discharge Items Patient Disposition: Transfer [facility] Reason For Visit: POSSIBLE STROKE/MINIMALLY RESPONSIVE Discharge Diagnosis: Right occipital stroke , hepatic encephalopathy, MARY ELLEN Activity: Resume your previous activity Lifting: Gradually increase as tolerated Bathing: No limitations Exercise/Sports: Gradually increase as tolerated Non-emergency contact: Primary Care Provider Call non-emergency contact if: you have any medication questions and your symptoms worsen Follow-up/Referrals: Alana Peres MD [Primary Care Provider] - 08/21/22 10:20 am (08/21/22 @ 10:[address] Peres) Diet: Heart Healthy Add Attending Provider Instructions: Please check your ammonia level in 1 week and follow-up with neurology as per recommendation of your primary care doctor Addtl Script Artist Provider Instructions: Because your blood pressure was running low spironolactone and torsemide has been discontinued, please consult with your primary care doctor within 3 to 4 days to gradually resume spironolactone and torsemide. Please check your blood pressure on daily basis. He will taking nadolol that was discontinued over the course of admission due to low blood pressure, notable has been resumed upon discharge. Please monitor your blood pressure Pending Studies at Discharge: No Stand-Alone Forms: My [place], Medications to Prevent Stroke Skilled Items Patient informed of condition?: Yes DNR: No Discharge Level of Care: Skilled Communicable Disease: No Discharge Prognosis: Stable Lines: None Urinary Catheter: No Medications and DC Order Prescriptions: New Novolin N NPH U-100 Insulin 100 unit/mL Suspension 60 unit SC QDB Qty: 10 0RF lactulose 20 gram/30 mL Solution 30 g PO TID Qty: 50 0RF aspirin 81 mg Tablet,Delayed Release (Dr/Ec) 81 mg PO QAM Qty: 20 0RF diclofenac sodium [Voltaren Arthritis Pain] 1 % Gel 4 g EXT QID Qty: 70 0RF carbidopa-levodopa [Sinemet] 25-100 mg Tablet 0.5 tab PO TID Qty: 50 0RF Continued albuterol sulfate [ProAir HFA] 90 mcg/actuation HFA aerosol inhaler 2 puff Inhalation Q4 PRN (Reason: Shortness Of Breath Or Wheezing) Qty: 8.5 5RF omeprazole 40 mg capsule,delayed release(DR/EC) 40 mg PO QAM Qty: 90 1RF cranberry 450 mg tablet 450 mg PO DAILY magnesium hydroxide [Milk of Magnesia] 400 mg/5 mL suspension 60 ml PO DAILY PRN (Reason: constipation) Qty: 355 0RF diclofenac sodium [Voltaren Arthritis Pain] 1 % gel 2 g topical QID Qty: 100 2RF Rx Instructions: apply to single elbow, wrist or hand; for hand includes palm/fingers/back of hand rosuvastatin 40 mg tablet 40 mg PO .HS UD Hold Instructions: due to nausea, until nausea controlled Rx Instructions: IS ON HOLD @ PRESENT, UNTIL NAUSEA CONTROLLED nitroglycerin [Nitrostat] 0.4 mg Tablet, Sublingual 0.4 mg sublingual UD PRN (Reason: Chest Pain) nadolol 20 mg Tablet 10 mg PO QAM sertraline [Zoloft] 50 mg tablet 50 mg PO DAILY lidocaine 5 % Adhesive Patch,Medicated 1 patch transdermal QAM Qty: 7 0RF duloxetine 60 mg capsule,delayed release(DR/EC) 60 mg PO HS ondansetron 4 mg tablet,disintegrating 4 mg PO Q8 PRN (Reason: Nausea) Xifaxan 550 mg Tablet 550 mg PO BID 30 Days Qty: 60 0RF carbidopa-levodopa 10-100 mg tablet 1 tab TID ezetimibe 10 mg tablet Changed potassium chloride 10 mEq tablet extended release 20 meq PO 3XWK Qty: 50 0RF Rx Instructions: TAKES MON, WED, & FRI WITH METOLAZONE. Discontinued Humulin R U-500 (Conc) Kwikpen 500 unit/mL (3 mL) insulin pen See Rx Instructions .ROUTE .COMPLEX Rx Instructions: 140 units in the morning, 10 units in pm subcut daily; spironolactone 100 mg tablet 100 mg PO DAILY torsemide 40 mg tablet 40 mg PO QAM Qty: 90 3RF lactulose 20 gram packet 20 g PO BID 30 Days Qty: 30 0RF No Action (DME) FreeStyle Courtney 2 [place] Misc See Rx Instructions .ROUTE .MEDSUPPLY Qty: 1 0RF Rx Instructions: As directed dx E11.9 (DME) pen needle, diabetic [BD Ultra-Fine Mini Pen Needle] 31 gauge x 3/16" needle See Rx Instructions .ROUTE .MEDSUPPLY Qty: 300 3RF Rx Instructions: Use 3 per day as directed with insulin injection (DME) Shower Chair Misc See Rx Instructions .Route Qty: 1 0RF Rx Instructions: shower sliding transfer bench (DME) FreeStyle Courtney 2 Sensor Kit See Rx Instructions .ROUTE .MEDSUPPLY Qty: 2 12RF Rx Instructions: As directed dx E11.9 (DME) blood sugar diagnostic Strip See Rx Instructions .ROUTE .MEDSUPPLY Qty: 100 0RF Rx Instructions: Test 3 times daily; DX CODE- E11.9 (DME) miscellaneous medical supply Misc See Rx Instructions miscellaneous .MEDSUPPLY Qty: 1 0RF Rx Instructions: Mom meals (DME) lancets [OneTouch UltraSoft Lancets] Misc See Rx Instructions .ROUTE .MEDSUPPLY Qty: 100 Rx Instructions: Test 3 times daily Discharge Orders: Discharge Order (Routine); Ordered 08/14/22 Ordered By: Jose Miguel Gibbs Admission Data Admit Date/Time: 08/08/22 11:08 Attending Provider: Jose Miguel Gibbs Admit Provider: Angel Osorio Primary Care Provider: Alana Peres Other Providers: Angel Osorio ; Flash Cervantes ; Thi Tai ; Sofia Bae Other Interventions: Discharge Summary Assessment (RN) Last Done: 08/14/22 13:57 Coding Level of Care Code HOSP INP/OBS DISCH >30 MIN Diagnoses Stroke I63.9 Hepatic encephalopathy K76.82 MARY ELLEN (acute kidney injury) N17.9 Right sided weakness R53.1 Chronic diastolic heart failure I50.32 Depression F32.9 DM2 (diabetes mellitus, type 2) E11.9 GARRETT on CPAP G47.33; Z99.89 HTN (hypertension) I10 HLD (hyperlipidemia) E78.5 GERD (gastroesophageal reflux disease) K21.9 Hypokalemia E87.6 Atypical parkinsonism G20 Contusion of face S00.83XA Cirrhosis K74.60 Neck pain M54.2 DVT prophylaxis Z29.9 Concussion S06.0XAA
--- NOTE | 2022-08-21 13:26 | Coding Query ---
CODING QUERY To promote full compliance with coding requirements relating to patient care, provider participation is requested in all cases of double backer uncertainty. Please assist us with the question(s) below: Coding Question(s): Please specify below, in your clinical opinion, the diagnosis most responsible for occasioning the inpatient admission: (xxx ) Stroke ( ) Hepatic Encephalopathy ( ) Acute Kidney Injury ( ) Other: Please Specify Physician's Response(s): Thank you Corina Harris Principal Diagnosis: "that condition established after study, to be chiefly responsible for occasioning the admission of the patient to the hospital for care." Co-Existing Principal Diagnosis: "when two or more diagnoses equally meet the criteria for principal diagnosis as determined by the circumstances of admission, diagnostic work up, and/or therapy provided, and the Alphabetic Index, Tabular List, or another coding guideline does not provide sequencing direction, any one of the diagnoses may be sequenced first." "When the physician has documented what appears to be a current diagnosis in the body of the record, but has not included the diagnosis in the final diagnostic statement, the physician should be asked whether the diagnosis should be added." (Source Coding [facility] 2 QTR90. p3-4) [email or web address]
== END 2022-08-14 15:17 | DRG 65 ==
LOC: ED 07:46 → SUATTDRO 11:08 → 2S 11:08

== ENCOUNTER 2022-08-21 15:14 | Observation (INO) ==
[2022-08-21 15:53] LABS: INR 1.1 (0.9-1.1); Prothrombin Time 11.9 Seconds (9.0-12.0)
[2022-08-21 16:01] LABS: Basophils # (auto) 0.02 K/uL (0-0.2); Basophils % (auto) 0.4 %; Eosinophils # (auto) 0.17 K/uL (0-0.50); Eosinophils % (auto) 3.2 %; Hematocrit (blood only) 35.7 % (37.0-47.0); Hemoglobin 12.2 g/dl (12.0-16.0); Immature Granulocytes # (auto) 0.01 K/uL (0.01-0.20); Immature Granulocytes % (auto) 0.2 %; Lymphocytes # (auto) 1.57 K/uL (1.2-3.4); Lymphocytes % (auto) 29.4 %; Mean Corpuscular Hemoglobin 30.9 pg (25.0-34.0); Mean Corpuscular Hgb Conc 34.2 g/dL (32.0-36.0); Mean Corpuscular Volume 90.4 fL (80.0-100.0); Mean Platelet Volume 10.7 fL (9.4-12.4); Monocytes # (auto) 0.69 K/uL (0.11-0.59); Monocytes % (auto) 12.9 %; Neutrophils # (auto) 2.88 K/uL (1.40-6.50); Neutrophils % (auto) 53.9 %; Platelet Count 120 K/uL (130-400); RDW Coefficient of Variation 14.2 % (11.5-14.5); RDW Standard Deviation 46.6 fL (36.4-46.3); Red Blood Count 3.95 M/uL (4.20-5.40); White Blood Count 5.34 K/ul (4.8-10.8)
[2022-08-21 16:08] LABS: Troponin I High Sensitivity 11.8 pg/ml (0-14)
[2022-08-21 16:13] LABS: Albumin Level 2.8 gm/dl (3.4-5.0); Anion Gap 6 (3-11); Calcium 9.4 mg/dl (8.5-10.1); Carbon Dioxide 27 mmol/L (21-32); Chloride 104 mmol/L (98-107); Potassium 4.3 mmol/L (3.5-5.1); Sodium 137 mmol/L (136-145)
[2022-08-21 16:19] LABS: Alanine Aminotransferase 20 U/L (7-52); Albumin Globulin Ratio 0.7 (0.9-2); Alkaline Phosphatase 111 U/L (34-104); Aspartate Aminotransferase 107 U/L (13-39); BUN Creatinine Ratio 16.7 (10-20); Blood Urea Nitrogen 16 mg/dl (6-23); Est GFR (African American) 70.9 ml/min; Est GFR (Non-African American) 61.2 ml/min; Globulin 3.9 gm/dl (2.5-4.0); Glucose 236 mg/dl (70-99(Fasting)); Total Protein 6.7 gm/dl (6.0-8.3)
[2022-08-21] MEDS ORDERED: NITROGLYCERIN SL 0.4 MG/TAB TAB SL STA (17:30)
--- NOTE | 2022-08-21 17:30 | Emergency Department Note ---
Impression & Plan Chest pain, Arm pain ED Provider Note NAME: HOSSEIN MCALLISTER AGE: 67 SEX: F : 1955 ARRIVES VIA: Ambulance INFORMANT: Patient ED PROVIDER(S): Fabian Wood DO CHIEF COMPLAINT: chest pain HPI: Patient is a 67-year-old female with a past medical history of obesity, MARY ELLEN, CVA, cirrhosis, diabetes, hypertension and hyperlipidemia presents the ER for chest pain which occurred while working on at PT. She notes that she has been getting chest pain off and on/more frequently for the past month. She denies any shortness of breath with it but she does have jaw and neck pain as well as shoulder pain. Denies any belly pain nausea vomiting or diarrhea. No dysuria urgency or frequency. She was given nitro and the pain got much better but she dropped her pressures. She was not given any aspirin. No dysuria, urgency, or frequency. No other exacerbating or remitting factors. Pain is not reproducible. PAST MEDICAL HISTORY:See Below PAST SURGICAL HISTORY:See Below FAMILY HISTORY:See Below SOCIAL HISTORY:See Below HOME MEDICATIONS:See Below ALLERGIES:See Below VITALS:See Below PHYSICAL EXAMINATION: GENERAL: Sitting up in bed, alert, well appearing, well nourished, no distress, non-toxic EYE EXAM: normal conjunctiva. PERRL and EOM's grossly intact. OROPHARYNX: no exudate, no erythema, lips, buccal mucosa, and tongue normal and mucous membranes are moist NECK: supple, no nuchal rigidity, no adenopathy, non-tender LUNGS: Clear to auscultation. Normal chest wall mechanics HEART: no murmurs, S1 normal and S2 normal ABDOMEN: abdomen soft, non-tender, normo-active bowel sounds, no masses, no rebound or guarding. UPPER EXTREMITIES: upper extremities are grossly normal. LOWER EXTREMITIES: Mild pitting edema NEURO EXAM: Normal sensorium, cranial nerves II-XII grossly intact, normal sp eech, no gross weakness of arms, no gross weakness of legs. MEDICAL DECISION MAKING: Patient is a 67-year-old female who presents to the ER for chest pain which has been exertional for the past month. Gradually getting worse and more frequent. They occur tonight and she was given nitro and the pain got slightly better. It occurred while she was at physical therapy. IV was established blood work was obtained. Labs show no significant leukocytosis or anemia. INR unremarkable. BMP along with LFTs bilirubin was remarkable for slightly elevated glucose at 236. Troponin was negative. COVID was negative. Chest x-ray was clean. EKG was nondiagnostic. External records were reviewed. Heart score moderate risk. Updated bedside. Given additional dose of nitro and discussed with the hospitalist for further evaluation Dr. Georgia jaime. Patient was given aspirin prior to arrival. After review of the above data and presentation, I feel the patient can be managed as an outpatient as opposed to being admitted.Discussed with Pt concerning signs and symptoms to watch out for. Pt was instructed to follow up with their PCP and discussed with the patient their option to return to the ED at anytime for persistent or worsening symptoms. The appropriate anticipatory guidance and out-patient management, including indications for return to the emergency department, were explained at length to the patient and understood Triage Nursing notes reviewed. Limited review of prior medical records performed Vital Signs: reviewed and remarkable for no significant abnormalities Differential diagnosis: Cardiac ischemia, aortic dissection, pulmonary embolism, pneumothorax, pneumonia, pericarditis, myocarditis, esophageal rupture, GERD, cholecystitis, pancreatitis, musculoskeletal, as well as other pathologies. ER treatment provided: See below Diagnostics interpreted by me include EKG and cardiac monitoring as listed below: -Cardiac Monitoring: An order was placed for continuous cardiac monitoring. The monitor shows a rate of 70 with sinus rhythm. -ECG: Sinus rhythm at 65 Normal axis No PVCs QTC 440 -Laboratory studies:Interpreted by me as stated above in MDM and shown below. Imaging studies: Xrays: As interpreted by me: Portable AP upright 1 view the chest shows no focal infiltrate per my read CTs show: none Consultation(s): Discussed with Dr. Oliva for further evaluation and treatment. Discussed with care management in regards to admission and further work-up Procedures:none Critical Care: None Past Med/Surg History Medical History Acute alteration in mental status Acute metabolic encephalopathy Cancer UTERINE CANCER SKIN CANCER Cardiac murmur Chronic kidney disease STAGE 3-4? F/U PCP Congestive heart failure Constipation Diffuse myofascial pain syndrome Diverticular disease DM2 (diabetes mellitus, type 2) IDDM Fall Fatty liver PER PT ROME (generalized anxiety disorder) Gastroparesis GERD (gastroesophageal reflux disease) History of anesthesia reaction difficulty waking History of COVID-19 09/2020 @ [facility]--headache/diarrhea--no issues now HLD (hyperlipidemia) HTN (hypertension) Hx MRSA infection Hypokalemia IBS (irritable bowel syndrome) Migraine Morbid obesity with BMI of 45.0-49.9, adult Nausea and vomiting after administration of anesthetic agent Occasional tremors AT NIGHT GARRETT on CPAP Osteoarthritis Serum ammonia increased Surgical History Cancer MELANOMA SIDE LEFT FACE-EXCISION H/O esophagogastroduodenoscopy H/O eye surgery LASER RT/LEFT FOR HIGH PRESSURE History of appendectomy History of bladder surgery BLADDER TACK History of colonoscopy History of left heart catheterization (LHC) "normal 2001" History of tooth extraction History of total knee replacement RIGHT S/P cholecystectomy S/P [facility]-BSO 1983 Family History Father Diabetes Sister Ovarian cancer Family history of diabetes mellitus Sister Family history of diabetes mellitus Mother Breast cancer Family history of reaction to anesthesia slow to wake--n/v Grandmother (Maternal) Myocardial infarction Uncle Prostate cancer Other Cancer Gallbladder disease Heart disease Hypertension Lung disease Denies family history of Colon cancer Social History Smoking Status: Unknown if ever smoked Second Hand Exposure: No; Hx Alcohol Use: No Hx Substance Use: No Preferred Language: Occitan Communication Ability: Impaired Visual Impairment: No Limitations Hearing Ability: Normal 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: No Beliefs That Will Affect Care: None marital status: Current Living Situation: Assisted Current Living Situation Comment: roommate at independent living facility current occupational status: retired 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 [employer] Feels Safe at Home: Yes Childhood Exposure to Second-Hand Smoke: Yes Dental Care, Regularly: Yes Physical Activity Frequency: 3-4 Times per Week Seatbelt Use: always Sunscreen Use: Yes Assistive Devices: Walker and Wheelchair Allergies Allergies Allergy/AdvReac Type Severity Reaction Status Date / Time ciprofloxacin Allergy Intermediate MOUTH Verified 07/29/22 11:27 BLISTERS, HIVES morphine Allergy Intermediate HIVES, Verified 07/29/22 11:27 "DEATHLY ILL", THROWS UP oxycodone Allergy Intermediate HIVES, Verified 07/29/22 11:27 VOMITING penicillin V Allergy Intermediate HIVES Verified 07/29/22 11:27 Home Meds Home Medications Medication Instructions Recorded Confirmed nitroglycerin 0.4 mg sublingual 0.4 mg sublingual UD PRN Chest Pain 10/10/18 08/08/22 tablet (Nitrostat) rosuvastatin 40 mg tablet 40 mg PO .HS UD 10/10/18 08/08/22 lancets (OneTouch UltraSoft #100 ea 04/05/20 08/08/22 Lancets) nadolol 20 mg tablet 10 mg PO QAM 10/11/21 08/08/22 duloxetine 60 mg capsule,delayed 60 mg PO HS 05/10/22 08/08/22 release cranberry fruit 450 mg tablet 450 mg PO DAILY 05/16/22 08/08/22 (cranberry) sertraline 50 mg tablet (Zoloft) 50 mg PO DAILY 06/27/22 08/08/22 ondansetron 4 mg disintegrating 4 mg PO Q8 PRN Nausea 07/14/22 08/08/22 tablet carbidopa 10 mg-levodopa 100 mg 1 tab TID 08/08/22 08/08/22 tablet ezetimibe 10 mg tablet mg 08/08/22 Previous Rx's Medication Instructions Recorded flash glucose scanning reader #1 ea 06/05/20 (FreeStyle Courtney 2 [place]) BD Ultra-Fine Mini Pen Needle 31 #300 ea 10/30/20 gauge x 3/16" (pen needle, diabetic) albuterol sulfate 90 mcg/actuation 2 puff inhalation Q4 PRN Shortness 12/20/21 aerosol inhaler (ProAir HFA) Of Breath Or Wheezing #8.5 grams Shower Chair #1 ea 03/28/22 omeprazole 40 mg capsule,delayed 40 mg PO QAM #90 caps 04/21/22 release magnesium hydroxide 400 mg/5 mL 60 ml PO DAILY PRN constipation 05/20/22 oral suspension (Milk of Magnesia) #355 mL blood sugar diagnostic #100 ea 07/01/22 flash glucose sensor (FreeStyle #2 ea 07/01/22 Courtney 2 Sensor kit) miscellaneous medical supply #1 ea 07/25/22 diclofenac sodium 1 % topical gel 2 g topical QID #100 grams 07/28/22 (Voltaren Arthritis Pain) lidocaine 5 % topical patch 1 patch transdermal QAM #7 ea 08/02/22 aspirin 81 mg tablet,delayed 81 mg PO QAM #20 tabs 08/14/22 release carbidopa 25 mg-levodopa 100 mg 0.5 tab PO TID #50 tabs 08/14/22 tablet (Sinemet) diclofenac sodium 1 % topical gel 4 g EXT QID #70 grams 08/14/22 (Voltaren Arthritis Pain) insulin NPH isoph U-100 human 100 60 unit (0.6 mL) SC QDB #10 mL 08/14/22 unit/mL subcutaneous suspension (Novolin N NPH U-100 Insulin isophane) lactulose 20 gram/30 mL oral 30 g (45 mL) PO TID #50 mL 08/14/22 solution potassium chloride 10 mEq 20 meq PO 3XWK #50 tabs 08/14/22 tablet,extended release Results & Data (ED) Vital Signs Vital Signs - 24 hr 08/21/22 15:18 Temperature 36.4 C L Temperature Source Temporal Artery Scan Pulse Rate 68 Pulse Rhythm Regular Pulse Strength Normal Respiratory Rate 20 Respiratory Effort / Characteristics Non-Labored Spontaneous Respiratory Depth Normal Respiratory Pattern Regular Blood Pressure 145/71 H Blood Pressure Mean 95 Blood Pressure Position Sitting Pulse Oximetry 100 Oxygen Delivery Method Room Air Sepsis Recent Fever Within 48 Hours No Sepsis New/Unexplained Change in Mental Status No Sepsis Action Taken by Nursing No Action Required Laboratory Data 08/21/22 15:22 08/21/22 15:22 Lab Results 08/21/22 08/21/22 08/21/22 Range/Units 15:22 15:22 15:22 WBC 5.34 (4.8-10.8) K/ul RBC 3.95 L (4.20-5.40) M/uL Hgb 12.2 (12.0-16.0) g/dl Hct 35.7 L (37.0-47.0) % MCV 90.4 (80.0-100.0) fL MCH 30.9 (25.0-34.0) pg MCHC 34.2 (32.0-36.0) g/dL RDW Std Deviation 46.6 H (36.4-46.3) fL RDW Coeff of Vanesa 14.2 (11.5-14.5) % Plt Count 120 L (130-400) K/uL MPV 10.7 (9.4-12.4) fL Immature Gran % (Auto) 0.2 % Neut % (Auto) 53.9 % Lymph % (Auto) 29.4 % Rabun % (Auto) 12.9 % Eos % (Auto) 3.2 % Baso % (Auto) 0.4 % Neut # (Auto) 2.88 (1.40-6.50) K/uL Lymph # (Auto) 1.57 (1.2-3.4) K/uL Rabun # (Auto) 0.69 H (0.11-0.59) K/uL Eos # (Auto) 0.17 (0-0.50) K/uL Baso # (Auto) 0.02 (0-0.2) K/uL Immature Gran # (Auto) 0.01 (0.01-0.20) K/uL PT 11.9 (9.0-12.0) Seconds INR 1.1 (0.9-1.1) APTT 27.0 (21.0-31.0) Seconds PTT Ratio 1.0 Sodium 137 (136-145) mmol/L Potassium 4.3 (3.5-5.1) mmol/L Chloride 104 (98-107) mmol/L Carbon Dioxide 27 (21-32) mmol/L Anion Gap 6 (3-11) BUN 16 (6-23) mg/dl Creatinine 0.96 (0.6-1.2) mg/dl Est Cr Clr Drug Dosing Not Reportable Est GFR ( Amer) 70.9 ml/min Est GFR (Non-Af Amer) 61.2 ml/min BUN/Creatinine Ratio 16.7 (10-20) Glucose 236 H (70-99(Fasting)) mg/dl Calcium 9.4 (8.5-10.1) mg/dl Total Bilirubin 1.0 (0.2-1.0) mg/dl AST 107 H (13-39) U/L ALT 20 (7-52) U/L Alkaline Phosphatase 111 H (34-104) U/L Troponin I High Sens 11.8 (0-14) pg/ml Total Protein 6.7 (6.0-8.3) gm/dl Albumin 2.8 L (3.4-5.0) gm/dl Globulin 3.9 (2.5-4.0) gm/dl Albumin/Globulin Ratio 0.7 L (0.9-2) SARS-CoV-2, RNA, NAAT (NEGATIVE) 08/21/22 Range/Units 18:10 WBC (4.8-10.8) K/ul RBC (4.20-5.40) M/uL Hgb (12.0-16.0) g/dl Hct (37.0-47.0) % MCV (80.0-100.0) fL MCH (25.0-34.0) pg MCHC (32.0-36.0) g/dL RDW Std Deviation (36.4-46.3) fL RDW Coeff of Vanesa (11.5-14.5) % Plt Count (130-400) K/uL MPV (9.4-12.4) fL Immature Gran % (Auto) % Neut % (Auto) % Lymph % (Auto) % Rabun % (Auto) % Eos % (Auto) % Baso % (Auto) % Neut # (Auto) (1.40-6.50) K/uL Lymph # (Auto) (1.2-3.4) K/uL Rabun # (Auto) (0.11-0.59) K/uL Eos # (Auto) (0-0.50) K/uL Baso # (Auto) (0-0.2) K/uL Immature Gran # (Auto) (0.01-0.20) K/uL PT (9.0-12.0) Seconds INR (0.9-1.1) APTT (21.0-31.0) Seconds PTT Ratio Sodium (136-145) mmol/L Potassium (3.5-5.1) mmol/L Chloride (98-107) mmol/L Carbon Dioxide (21-32) mmol/L Anion Gap (3-11) BUN (6-23) mg/dl Creatinine (0.6-1.2) mg/dl Est Cr Clr Drug Dosing Est GFR ( Amer) ml/min Est GFR (Non-Af Amer) ml/min BUN/Creatinine Ratio (10-20) Glucose (70-99(Fasting)) mg/dl Calcium (8.5-10.1) mg/dl Total Bilirubin (0.2-1.0) mg/dl AST (13-39) U/L ALT (7-52) U/L Alkaline Phosphatase (34-104) U/L Troponin I High Sens (0-14) pg/ml Total Protein (6.0-8.3) gm/dl Albumin (3.4-5.0) gm/dl Globulin (2.5-4.0) gm/dl Albumin/Globulin Ratio (0.9-2) SARS-CoV-2, RNA, NAAT NEGATIVE (NEGATIVE) Administered Medications Discontinued Medications Aspirin (Aspirin Chew 324 Mg) 324 mg PO NOW STA Stop: 08/21/22 17:17 Last Admin: 08/21/22 17:45 Dose: Not Given Documented By: JASON Sodium Chloride (Nss 1000ml) 500 mls @ 999 mls/hr IV .Q31M ONE Stop: 08/21/22 18:01 Last Infusion: 08/21/22 20:23 Dose: 0 mls/hr Documented By: Admin: 08/21/22 17:38 Dose: 999 mls/hr Documented By: JASON Nitroglycerin (Nitroglycerin Sl 0.4 Mg/Tab Tab) 0.4 mg SL NOW STA Stop: 08/21/22 17:31 Last Admin: 08/21/22 17:38 Dose: 0.4 mg Documented By: JASON Imaging Data Radiologist's Impression: Chest X-Ray 08/21/22 17:14 XR chest 1V portable HISTORY: 67 years-old Female chest pain . Acute chest pain COMPARISON: Chest radiograph 08/08/2022 TECHNIQUE: AP view of the chest FINDINGS: Cardiac silhouette is enlarged. No pneumothorax, pleural effusion, airspace consolidation or overt pulmonary edema. Degenerative changes of the shoulders and spine. IMPRESSION: Cardiomegaly without acute process. ACT 112: Negative or not required by law. The above report was generated using voice recognition software. It may contain grammatical, syntax or spelling errors. Electronically signed by: Chucho Murry M.D. 08/21/2022 5:41 PM Discharge Plan Visit Data Chief Complaint: Chest Pain Stated Complaint: CHEST PAIN ED Provider: Fabian Wood Discharge Problem: Chest pain, Arm pain Patient Disposition: Admitted As Inpatient Discharge Instructions Interventions: ED Discharge Assessment Last Done: 08/21/22 21:04
[2022-08-21] MEDS ORDERED: SODIUM CHLORIDE 0.9% 1000ML 500 ML IV ONE (17:31)
[2022-08-21] MEDS: ASPIRIN CHEW 324 MG PO STA ×2 (17:37→17:45)
--- NOTE | 2022-08-21 17:42 | XRay Report ---
XR chest 1V portable HISTORY: 67 years-old Female chest pain . Acute chest pain COMPARISON: Chest radiograph 08/08/2022 TECHNIQUE: AP view of the chest FINDINGS: Cardiac silhouette is enlarged. No pneumothorax, pleural effusion, airspace consolidation or overt pu lmonary edema. Degenerative changes of the shoulders and spine. IMPRESSION: Cardiomegaly without acute process. ACT 112: Negative or not required by law. The above report was generated using voice recognition software. It may contain grammatical, syntax o r spelling errors. Electronically signed by: Chucho Murry M.D. 08/21/2022 5:41 PM
--- NOTE | 2022-08-21 18:21 | History & Physical Report ---
Date of Service August 21, 2022 Assessment & Plan (1) Chest pain: Plan: Chest Pain Acute onset chest pain that began while doing overhead weight lifting with her left arm; it is reproducible on exam over the mid axillary/apical region Work-up as follows: AST elevated to 108 on admission (notably elevated compared to prior) Admission troponin 11.8repeat pending ECG without any new conduction or repolarization abnormalities compared to prior EKG Chest x-ray with cardiomegaly but otherwise without evidence of acute vascular or edematous process Heart score 4; moderate risk for MACE Reproducible on exam (LEFT midaxillary area) At this time, primarily suspect the patient's symptoms represent costochondritis/myofascial pain from her PT exercises earlier today. However, she is a high risk individual with multiple vasculopathic risk factors and was recently admitted for stroke. Lower suspicion for VTE, aortopathy, GI related issue like esophageal spasms or reflux Apply lidocaine patches, schedule lower-dose ibuprofen (200 q6h), heat/ice PRN; would likely also benefit from OMT Trend troponin Pending repeat labs, can consider cardiology consult for stress test while here Continue aspirin, ezetimibe, nadolol, rosuvastatin (2) Stroke: Plan: Recently mated for right occipital stroke, visualized on MRI Continue aspirin (3) CKD (chronic kidney disease) stage 2, GFR 60-89 ml/min: Plan: No evidence of MARY ELLEN on arrival; baseline creatinine around 1 Monitor BMP (4) Cirrhosis: Plan: SMALL cirrhosis with prior bouts of hepatic encephalopathy Volume status is acceptable at this point Continue nadolol, lactulose, rifaximin Spironolactone and torsemide were discontinued at last admission secondary to labile BPs -- should consider restarting one while here or as outpatient (5) Chronic diastolic heart failure: Plan: Last TTE on 08/09/2022 demonstrating moderate LVH with LVEF 60 to 65% Continue nadolol Spironolactone and torsemide were discontinued at last admission secondary to labile BPs -- should consider restarting one while here or as outpatient (6) Depression: Plan: Continue duloxetine (7) Uncontrolled type 2 diabetes mellitus with neurologic complication, with long-term current use of insulin: Plan: A1c at 6.7% in 07/2022 SSI while here (8) HTN (hypertension): Plan: Continue nadolol Spironolactone and torsemide were discontinued at last admission secondary to labile BPs -- should consider restarting one while here or as outpatient (9) HLD (hyperlipidemia): Plan: Continue Crestor Plan Code: Full code Dispo: MedSurg telemetry Prophylaxis: Heparin Diet: Heart healthy, low Na History of Present Illness Primary Care Provider: Missy Willams This is a 67-year-old female with a history of cirrhosis, hepatic encephalopathy, CVA, CKD 2, atypical parkinsonism, HFpEF, diffuse myofascial pain syndrome, type 2 diabetes mellitus with insulin dependency, hypertension, hyperlipidemia, IBS, GERD who presented to [facility] for evaluation of chest pain. Patient says that she has been at [facility] for SNF/rehab services, and while engaging with physical therapy today she was doing overhead strength training (lifting weights with her left shoulder/arm). She said several repetitions in, she did develop a sharp, stinging feeling chest pain that she describes as the mid axillary line radiating towards her apex. She says that shoulder movements somewhat make this worse. She does say that she also has pain within her neck and left shoulder. She denies any shortness of breath or palpitations. She denies any nausea or vomiting. Denies any eating before this. She says that she has had on and off chest pain for a while, but this is different. When asked, she says the pain is not reproducible. Of note, this is the third admission for this patient over the past month. He was last discharged on 08/14 for left-sided visual field deficits as well as right-sided weakness. MRI on 08/08 demonstrated 9 mm focus of restricted diffusion in the right occipital lobe concerning for acute infarct. Last TTE on demonstrated moderate LVH with otherwise normal systolic function, EF 60 to 65%. No regional wall motion abnormalities. In the ED, patient was found to be hemodynamically stable with vital signs 145/70, heart rate 68, 100% oxygen saturation on room air. Admission labs revealing thrombocytopenia 120, INR 1.1, BUN 16/creatinine 0.96, blood sugar 236, AST 107 (last at 58 on 08/12), ALT 20, ALP 111. High-sensitivity troponin 11.8. Chest x-ray demonstrated cardiomegaly without acute process. ECG demonstrated previously demonstrated pathologic Q waves in the lateral leads, otherwise no acute conduction or repolarization abnormalities. She was given nitro x1, sodium chloride, and aspirin 324. --- This documentation was created utilizing dictation software. As such, syntax, grammatical, and word-choice errors may be present. Notes are screened prior to submission in an attempt to reduce these errors. If there are any questions or concerns, please contact the author directly for clarification. Allergies Allergy/AdvReac Type Severity Reaction Status Date / Time ciprofloxacin Allergy Intermediate MOUTH Verified 07/29/22 11:27 BLISTERS, HIVES morphine Allergy Intermediate HIVES, Verified 07/29/22 11:27 "DEATHLY ILL", THROWS UP oxycodone Allergy Intermediate HIVES, Verified 07/29/22 11:27 VOMITING penicillin V Allergy Intermediate HIVES Verified 07/29/22 11:27 Home Medications Medication Instructions Recorded Confirmed Type nitroglycerin 0.4 mg sublingual 0.4 mg sublingual UD PRN Chest Pain 10/10/18 08/21/22 History tablet (Nitrostat) lancets (OneTouch UltraSoft #100 ea 04/05/20 08/08/22 History Lancets) flash glucose scanning reader #1 ea 06/05/20 08/08/22 Rx (FreeStyle Courtney 2 Zavalla) BD Ultra-Fine Mini Pen Needle 31 #300 ea 10/30/20 08/08/22 Rx gauge x 3/16" (pen needle, diabetic) nadolol 20 mg tablet 10 mg PO QAM 10/11/21 08/21/22 History albuterol sulfate 90 mcg/actuation 2 puff inhalation Q4 PRN Shortness 12/20/21 08/21/22 Rx aerosol inhaler (ProAir HFA) Of Breath Or Wheezing #8.5 grams Shower Chair #1 ea 03/28/22 08/08/22 Rx omeprazole 40 mg capsule,delayed 40 mg PO QAM #90 caps 04/21/22 08/21/22 Rx release duloxetine 60 mg capsule,delayed 60 mg PO HS 05/10/22 08/21/22 History release cranberry fruit 450 mg tablet 450 mg PO QAM 05/16/22 08/21/22 History (cranberry) magnesium hydroxide 400 mg/5 mL 60 ml PO DAILY PRN constipation 05/20/22 08/21/22 Rx oral suspension (Milk of Magnesia) #355 mL sertraline 50 mg tablet (Zoloft) 50 mg PO QAM 06/27/22 08/21/22 History blood sugar diagnostic #100 ea 07/01/22 08/08/22 Rx flash glucose sensor (FreeStyle #2 ea 07/01/22 08/08/22 Rx Courtney 2 Sensor kit) ondansetron 4 mg disintegrating 4 mg PO Q8 PRN Nausea 07/14/22 08/21/22 History tablet miscellaneous medical supply #1 ea 07/25/22 08/08/22 Rx carbidopa 10 mg-levodopa 100 mg 1 tab TID 08/08/22 08/21/22 History tablet aspirin 81 mg tablet,delayed 81 mg PO QAM #20 tabs 08/14/22 08/21/22 Rx release carbidopa 25 mg-levodopa 100 mg 0.5 tab PO TID #50 tabs 08/14/22 08/21/22 Rx tablet (Sinemet) diclofenac sodium 1 % topical gel 4 g EXT QID #70 grams 08/14/22 08/21/22 Rx (Voltaren Arthritis Pain) insulin NPH isoph U-100 human 100 60 unit (0.6 mL) SC QDB #10 mL 08/14/22 08/21/22 Rx unit/mL subcutaneous suspension (Novolin N NPH U-100 Insulin isophane) lactulose 20 gram/30 mL oral 30 g (45 mL) PO TID #50 mL 08/14/22 08/21/22 Rx solution Theracalzinc 1 applic topical AMHS 08/21/22 08/21/22 History lidocaine 4 % topical patch 1 patch topical QAM 08/21/22 08/21/22 History rifaximin 550 mg tablet (Xifaxan) 550 mg PO BID 08/21/22 08/21/22 History white petrolatum (Vaseline jelly, 1 applic topical HS 08/21/22 08/21/22 History topical) Past Med/Surg History Medical History Acute alteration in mental status Acute metabolic encephalopathy Cancer UTERINE CANCER SKIN CANCER Cardiac murmur Chronic kidney disease STAGE 3-4? F/U PCP Congestive heart failure Constipation Diffuse myofascial pain syndrome Diverticular disease DM2 (diabetes mellitus, type 2) IDDM Fall Fatty liver PER PT ROME (generalized anxiety disorder) Gastroparesis GERD (gastroesophageal reflux disease) History of anesthesia reaction difficulty waking History of COVID-19 09/2020 @ [facility]--headache/diarrhea--no issues now HLD (hyperlipidemia) HTN (hypertension) Hx MRSA infection Hypokalemia IBS (irritable bowel syndrome) Migraine Morbid obesity with BMI of 45.0-49.9, adult Nausea and vomiting after administration of anesthetic agent Occasional tremors AT NIGHT GARRETT on CPAP Osteoarthritis Serum ammonia increased Surgical History Cancer MELANOMA SIDE LEFT FACE-EXCISION H/O esophagogastroduodenoscopy H/O eye surgery LASER RT/LEFT FOR HIGH PRESSURE History of appendectomy History of bladder surgery BLADDER TACK History of colonoscopy History of left heart catheterization (LHC) "normal 2001" History of tooth extraction History of total knee replacement RIGHT S/P cholecystectomy S/P [facility]-BS[facility] 1983 Family History Father Diabetes Sister Ovarian cancer Family history of diabetes mellitus Sister Family history of diabetes mellitus Mother Breast cancer Family history of reaction to anesthesia slow to wake--n/v Grandmother (Maternal) Myocardial infarction Uncle Prostate cancer Other Cancer Gallbladder disease Heart disease Hypertension Lung disease Denies family history of Colon cancer Social History Smoking Status: Never smoker Second Hand Exposure: No; Hx Alcohol Use: No Hx Substance Use: No Preferred Language: Grenadian Communication Ability: Impaired Visual Impairment: No Limitations Hearing Ability: Normal Examination Scorer Required: No Beliefs That Will Affect Care: None marital status: Current Living Situation: Alone Current Living Situation Comment: roommate at independent living facility current occupational status: retired 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 HEENT: NCAT. - Eyes - Sclera are white, anicteric, and without injection. - Mouth - MMM - Neck - supple, no appreciable JVD Cardiac: Normal rate and regular rhythm; S1 and S2 present with grade 1/6 ANNETTE best heard at RUSB. Pulmonary: Good respiratory effort with symmetric expansion of the chest. No use of accessory muscles. Lungs were clear to auscultation bilaterally with no crackles or wheezes. MSK: Palpation along the LEFT mid axillary line extending towards the apex significantly produces tenderness to palpation (reproduces pain). She denies any pain with palpation over shoulder. Shoulder strength 5/5. Abdominal: Normoactive bowel sounds. Abdomen was soft, nondistended, and non- tender to palpation. Extremities: Upper and lower extremities are warm and well perfused. No peripheral edema in the lower extremities bilaterally Psych: Well-developed, well-nourished, appropriately dressed for occasion. Behavior is cooperative and appropriate. Affect is WNL. Insight is appropriate. Results & Data Results & Data ([facility]) Vital Signs (Past 12 Hours) Vital Signs Temp Pulse Resp BP Pulse Ox O2 Del Method 08/21/22 15:18 36.4 C L 68 20 145/71 H 100 Room Air Supervising Physician Co-Signing Physician Notes Patient seen and examined, chart reviewed, case discussed with Fabian Lockhart and I agree with the assessment and plan as above except as otherwise noted Labs and images reviewed 67-year-old female who presents with reproducible chest pain which began with weight lifting. Has been recommended for cardiac eval given comorbidities and a heart score of 4. Clinically patient has reproducible pain on palpation in the axillary line, no chest pain at rest, heart rate is regular, and lungs are clear. No acute EKG changes, initial troponin is normal with repeat pending at time of assessment. Given comorbidities and heart score reasonable to trend troponins for cardiac rule out, although based on exam strongly suspect that her symptoms are musculoskeletal/costochondritis in origin. I agree with lidocaine, heat/ice, OMT. Defer NSAIDs pending completion of rule out, may use after if negative. If clinical concern for cardiac origin continues can progress to stress test. Agree with evaluation and management above. Resident Activity Tracking Resident Involvement: Resident Care Provided Care Provided: [facility]
[2022-08-21] MEDS ORDERED: CARBOHYDRATES FOR HYPOGLYCEMIA PO PRN (21:04)
[2022-08-21] MEDS ORDERED: MAGNESIUM HYDROXIDE SUSP 30 ML UDC PO PRN (21:04)
[2022-08-21] MEDS ORDERED: ROSUVASTATIN CALCIUM 20 MG TAB PO SCH (21:04)
[2022-08-21] MEDS ORDERED: GLUCAGON FOR INJ 1 MG VIAL SQ PRN (21:04)
[2022-08-21] MEDS ORDERED: ALBUTEROL HFA 8 GM INHALER INH PRN (21:04)
[2022-08-21] MEDS ORDERED: ONDANSETRON 4 MG OD TAB PO PRN (21:04)
[2022-08-21] MEDS ORDERED: GLUCOSE 40% GEL 15 GM TUBE PO PRN (21:04)
[2022-08-21] MEDS ORDERED: DEXTROSE 50% 50 ML SYRINGE IV PRN (21:04)
[2022-08-21] MEDS ORDERED: NITROGLYCERIN SL 0.4 MG/TAB TAB SL PRN (21:04)
[2022-08-21] MEDS ORDERED: DULoxetine HCL 60 MG CAP PO SCH (21:04)
[2022-08-21] MEDS ORDERED: GLUCOSE 10 TAB/TUBE PO PRN (21:04)
[2022-08-22] MEDS: LACTULOSE SYRUP 20 GM/30 ML UDC PO SCH ×2 (00:04→08:06)
[2022-08-22] MEDS: INSULIN ASPART PER UNIT SC SCH ×3 (00:05→11:55)
[2022-08-22] MEDS: HEPARIN SOD 5,000 UNIT/0.5 ML VIAL SQ SCH ×2 (00:05→08:13)
[2022-08-22] MEDS: IBUPROFEN 200 MG TAB PO SCH ×3 (00:06→08:08)
[2022-08-22] MEDS ORDERED: LIDOCAINE 5% 1 PATCH TD SCH ×2 (00:15→09:00)
[2022-08-22 01:36] LABS: Albumin Globulin Ratio 0.7 (0.9-2); Albumin Level 2.5 gm/dl (3.4-5.0); BUN Creatinine Ratio 17.7 (10-20); Calcium 9.1 mg/dl (8.5-10.1); Creatinine Clr Calc Pharmacy 92.5 ml/min; Est GFR (African American) 89.8 ml/min; Est GFR (Non-African American) 77.5 ml/min; Globulin 3.6 gm/dl (2.5-4.0); Potassium 3.7 mmol/L (3.5-5.1); Total Protein 6.1 gm/dl (6.0-8.3)
[2022-08-22 02:32] LABS: Hematocrit (blood only) 35.1 % (37.0-47.0); Mean Corpuscular Hemoglobin 30.9 pg (25.0-34.0); Mean Corpuscular Hgb Conc 34.2 g/dL (32.0-36.0); Mean Corpuscular Volume 90.5 fL (80.0-100.0); Mean Platelet Volume 10.2 fL (9.4-12.4); Platelet Count 105 K/uL (130-400); RDW Coefficient of Variation 14.2 % (11.5-14.5); Red Blood Count 3.88 M/uL (4.20-5.40); White Blood Count 5.24 K/ul (4.8-10.8)
[2022-08-22 02:34] LABS: Basophils # (auto) 0.02 K/uL (0-0.2); Basophils % (auto) 0.4 %; Echinocytes 2+; Eosinophils # (auto) 0.15 K/uL (0-0.50); Eosinophils % (auto) 2.9 %; Immature Granulocytes # (auto) 0.02 K/uL (0.01-0.20); Immature Granulocytes % (auto) 0.4 %; Lymphocytes # (auto) 1.55 K/uL (1.2-3.4); Lymphocytes % (auto) 29.6 %; Monocytes # (auto) 0.62 K/uL (0.11-0.59); Monocytes % (auto) 11.8 %; Neutrophils # (auto) 2.88 K/uL (1.40-6.50); Neutrophils % (auto) 54.9 %; Platelet Estimate Decreased (Normal)
[2022-08-22] MEDS ORDERED: ASPIRIN 81 MG ECTAB PO SCH (09:00)
[2022-08-22] MEDS ORDERED: EZETIMIBE 10 MG TABLET PO SCH (09:00)
[2022-08-22] MEDS ORDERED: SERTRALINE HCL 50 MG TABLET PO SCH (09:00)
[2022-08-22] MEDS ORDERED: PANTOprazole 40 MG TAB PO SCH (09:00)
[2022-08-22] MEDS ORDERED: nadoloL 40 MG TAB PO SCH (09:00)
[2022-08-22] MEDS ORDERED: POTASSIUM CHLORIDE CRTAB 20 MEQ TABCR PO SCH (09:00)
--- NOTE | 2022-08-22 11:23 | Electrocardiogram Report ---
Test Reason : Blood Pressure : / mmHG Vent. Rate : 065 BPM Atrial Rate : 065 BPM P-R Int : 178 ms QRS Dur : 112 ms QT Int : 424 ms P-R-T Axes : 018 003 031 degrees QTc Int : 440 ms Normal sinus rhythm Possible Lateral infarct (cited on or before 08-AUG-2022) Abnormal ECG When compared with ECG of 08-AUG-2022 07:54, No significant change was found Confirmed by Carter Perez ([id number]) on 08/22/2022 11:23:27 AM Referred By: Confirmed By:Carter Perez
--- NOTE | 2022-08-22 15:21 | Discharge Summary ---
Date of Service August 22, 2022 Admission HPI Per Admitting Provider This is a 67-year-old female with a history of cirrhosis, hepatic encephalopathy, CVA, CKD 2, atypical parkinsonism, HFpEF, diffuse myofascial pain syndrome, type 2 diabetes mellitus with insulin dependency, hypertension, hyperlipidemia, IBS, GERD who presented to [facility] for evaluation of chest pain. Patient says that she has been at [facility] for SNF/rehab services, and while engaging with physical therapy today she was doing overhead strength training (lifting weights with her left shoulder/arm). She said several repetitions in, she did develop a sharp, stinging feeling chest pain that she describes as the mid axillary line radiating towards her apex. She says that shoulder movements somewhat make this worse. She does say that she also has pain within her neck and left shoulder. She denies any shortness of breath or palpitations. She denies any nausea or vomiting. Denies any eating before this. She says that she has had on and off chest pain for a while, but this is different. When asked, she says the pain is not reproducible. Of note, this is the third admission for this patient over the past month. He was last discharged on 08/14 for left-sided visual field deficits as well as right-sided weakness. MRI on 08/08 demonstrated 9 mm focus of restricted diffusion in the right occipital lobe concerning for acute infarct. Last TTE on demonstrated moderate LVH with otherwise normal systolic function, EF 60 to 65%. No regional wall motion abnormalities. In the ED, patient was found to be hemodynamically stable with vital signs 145/70, heart rate 68, 100% oxygen saturation on room air. Admission labs revealing thrombocytopenia 120, INR 1.1, BUN 16/creatinine 0.96, blood sugar 236, AST 107 (last at 58 on 08/12), ALT 20, ALP 111. High-sensitivity troponin 11.8. Chest x-ray demonstrated cardiomegaly without acute process. ECG demonstrated previously demonstrated pathologic Q waves in the lateral leads, otherwise no acute conduction or repolarization abnormalities. She was given nitro x1, sodium chloride, and aspirin 324. --- This documentation was created utilizing dictation software. As such, syntax, grammatical, and word-choice errors may be present. Notes are screened prior to submission in an attempt to reduce these errors. If there are any questions or concerns, please contact the author directly for clarification. Principal Diagnosis chest pain Discharge Exam The patient is awake, alert and oriented 3, well developed and well nourished, normocephalic and atraumatic, lying in bed and in no acute distress. HEENT--PERRL, EOMI, mucous membranes and oropharynx mildly dry Neck--supple. No JVD. No bruits. Thyroid normal, trachea midline, no adenopathy. Heart--normal S1 and S2. No murmurs, rubs or gallops. Lungs--clear bilaterally, no respiratory distress, no accessory muscle use. Abdomen--normal bowel sounds and soft. Mild epigastric and left sided abdominal pain Extremities--no cyanosis or clubbing. No edema. Dermatologic--normal skin turgor, normal color, no abnormal lymph nodes, no rash. Neurologic--cranial nerves II through XII grossly intact. Rheumatologic--normal range of motion. Psychiatric--normal affect. Discharge Data Allergies Allergy/AdvReac Type Severity Reaction Status Date / Time ciprofloxacin Allergy Intermediate MOUTH Verified 07/29/22 11:27 BLISTERS, HIVES morphine Allergy Intermediate HIVES, Verified 07/29/22 11:27 "DEATHLY ILL", THROWS UP oxycodone Allergy Intermediate HIVES, Verified 07/29/22 11:27 VOMITING penicillin V Allergy Intermediate HIVES Verified 07/29/22 11:27 Consultations 08/21/22 17:53 ED Decision to Admit Stat Hospital Course (1) Chest pain: Chest Pain Acute onset chest pain that began while doing overhead weight lifting with her left arm; it is reproducible on exam over the mid axillary/apical region Work-up as follows: AST elevated to 108 on admission (notably elevated compared to prior) Admission troponin 11.8repeat pending ECG without any new conduction or repolarization abnormalities compared to prior EKG Chest x-ray with cardiomegaly but otherwise without evidence of acute vascular or edematous process Heart score 4; moderate risk for MACE Reproducible on exam (LEFT midaxillary area) At this time, primarily suspect the patient's symptoms represent costochondritis/myofascial pain from her PT exercises earlier today. However, she is a high risk individual with multiple vasculopathic risk factors and was recently admitted for stroke. Lower suspicion for VTE, aortopathy, GI related issue like esophageal spasms or reflux Apply lidocaine patches, schedule lower-dose ibuprofen (200 q6h), heat/ice PRN; would likely also benefit from OMT Trops flat, no SAT changes on EKG -Pain has resolved -D/C back to SNF (2) Stroke: Recently mated for right occipital stroke, visualized on MRI Continue aspirin (3) CKD (chronic kidney disease) stage 2, GFR 60-89 ml/min: No evidence of MARY ELLEN on arrival; baseline creatinine around 1 Monitor BMP (4) Cirrhosis: SMALL cirrhosis with prior bouts of hepatic encephalopathy Volume status is acceptable at this point Continue nadolol, lactulose, rifaximin Spironolactone and torsemide were discontinued at last admission secondary to labile BPs -- should consider restarting one while here or as outpatient (5) Chronic diastolic heart failure: Last TTE on 08/09/2022 demonstrating moderate LVH with LVEF 60 to 65% Continue nadolol Spironolactone and torsemide were discontinued at last admission secondary to labile BPs -- should consider restarting one while here or as outpatient (6) Depression: Continue duloxetine (7) Uncontrolled type 2 diabetes mellitus with neurologic complication, with long-term current use of insulin: A1c at 6.7% in 07/2022 SSI while here (8) HTN (hypertension): Continue nadolol Spironolactone and torsemide were discontinued at last admission secondary to labile BPs -- should consider restarting one while here or as outpatient (9) HLD (hyperlipidemia): Continue Crestor Plan Code: Full code Dispo: MedSurg telemetry Prophylaxis: Heparin Diet: Heart healthy, low Na Total Time Total Time Spent Total Time Spent (In Minutes): 35 Discharge Plan Discharge Items Patient Disposition: Transfer Intermediate Fac Reason For Visit: CHEST PAIN Discharge Diagnosis: chest pain Activity: Resume your previous activity Non-emergency contact: Primary Care Provider Call non-emergency contact if: you have any medication questions Follow-up/Referrals: Missy Willams [Primary Care Provider] - (PLEASE CALL YOUR PRIMARY CARE PROVIDER TO SCHEDULE A DISCHARGE FOLLOW-UP APPOINTMENT WITHIN 7-10 DAYS) Diet: Regular Addtl Attending Provider Instructions: please make appointment to follow up with your PCP Pending Studies at Discharge: No Stand-Alone Forms: Appoet, Smoking Cessation Skilled Items Patient informed of condition?: Yes DNR: No Discharge Level of Care: Skilled Communicable Disease: No Discharge Prognosis: Stable Lines: None Urinary Catheter: No Medications and DC Order Prescriptions: Continued (DME) FreeStyle Courtney 2 [facility] See Rx Instructions .ROUTE .MEDSUPPLY Qty: 1 0RF Rx Instructions: As directed dx E11.9 (DME) pen needle, diabetic [BD Ultra-Fine Mini Pen Needle] 31 gauge x 3/16" needle See Rx Instructions .ROUTE .MEDSUPPLY Qty: 300 3RF Rx Instructions: Use 3 per day as directed with insulin injection albuterol sulfate [ProAir HFA] 90 mcg/actuation HFA aerosol inhaler 2 puff Inhalation Q4 PRN (Reason: Shortness Of Breath Or Wheezing) Qty: 8.5 5RF (DME) Shower Chair Mis See Rx Instructions .Route Qty: 1 0RF Rx Instructions: shower sliding transfer bench omeprazole 40 mg capsule,delayed release(DR/EC) 40 mg PO QAM Qty: 90 1RF cranberry 450 mg tablet 450 mg PO QAM magnesium hydroxide [Milk of Magnesia] 400 mg/5 mL suspension 60 ml PO DAILY PRN (Reason: constipation) Qty: 355 0RF (DME) FreeStyle Courtney 2 Sensor Kit See Rx Instructions .ROUTE .MEDSUPPLY Qty: 2 12RF Rx Instructions: As directed dx E11.9 (DME) blood sugar diagnostic Strip See Rx Instructions .ROUTE .MEDSUPPLY Qty: 100 0RF Rx Instructions: Test 3 times daily; DX CODE- E11.9 (DME) miscellaneous medical supply [facility] See Rx Instructions miscellaneous .MEDSUPPLY Qty: 1 0RF Rx Instructions: Mom meals (DME) lancets [OneTouch UltraSoft Lancets] Mis See Rx Instructions .ROUTE .MEDSUPPLY Qty: 100 Rx Instructions: Test 3 times daily nitroglycerin [Nitrostat] 0.4 mg Tablet, Sublingual 0.4 mg sublingual UD PRN (Reason: Chest Pain) nadolol 20 mg Tablet 10 mg PO QAM Rx Instructions: hold if HR is less than or equal to 60 or systolic is less than or equal to 110 sertraline [Zoloft] 50 mg tablet 50 mg PO QAM duloxetine 60 mg capsule,delayed release(DR/EC) 60 mg PO HS ondansetron 4 mg tablet,disintegrating 4 mg PO Q8 PRN (Reason: Nausea) carbidopa-levodopa 10-100 mg tablet 1 tab TID Novolin N NPH U-100 Insulin 100 unit/mL Suspension 60 unit SC QDB Qty: 10 0RF lactulose 20 gram/30 mL Solution 30 g PO TID Qty: 50 0RF aspirin 81 mg Tablet,Delayed Release (Dr/Ec) 81 mg PO QAM Qty: 20 0RF diclofenac sodium [Voltaren Arthritis Pain] 1 % Gel 4 g EXT QID Qty: 70 0RF Rx Instructions: apply to joints carbidopa-levodopa [Sinemet] 25-100 mg Tablet 0.5 tab PO TID Qty: 50 0RF lidocaine 4 % adhesive patch,medicated 1 patch TOPICAL QAM Rx Instructions: take off at bedtime white petrolatum [Vaseline] Gel 1 applic TOPICAL HS Rx Instructions: apply to inside right nares at bedtime Xifaxan 550 mg tablet 550 mg PO BID Theracalzinc 1 applic topical AMHS Rx Instructions: apply to rash on right buttock and between lower buttocks followed by stoma powder Discharge Orders: Discharge Order (Routine); Ordered 08/22/22 Ordered By: Romulo Holliday Admission Data Admit Date/Time: 08/21/22 18:21 Attending Provider: Romulo Holliday Admit Provider: Fabian Lockhart Primary Care Provider: Missy Willams Other Providers: Angel Osorio ; [place] Other Interventions: Discharge Summary Assessment (RN) Last Done: 08/22/22 11:15 Coding Level of Care Code HOSP INP/OBS DISCH >30 MIN Diagnoses Chest pain R07.9 Stroke I63.9 CKD (chronic kidney disease) stage 2, GFR 60-89 ml/min N18.2 Cirrhosis K74.60 Chronic diastolic heart failure I50.32 Depression F32.9 Uncontrolled type 2 diabetes mellitus with neurologic complication, with long- term current use of insulin E11.49; E11.65; Z79.4 HTN (hypertension) I10 HLD (hyperlipidemia) E78.5 Time Spent (min) 35
== END 2022-08-22 14:56 ==
LOC: EDINP 15:14 → ED 15:14 → SUATTDRO 18:21 → 2N 21:04

== ENCOUNTER 2024-09-28 16:12 | Inpatient (IN) ==
[2024-09-28 17:38] LABS: Basophils # (auto) 0.03 K/uL (0.00-0.20); Basophils % (auto) 0.2 %; Eosinophils # (auto) 0.15 K/uL (0.00-0.50); Eosinophils % (auto) 1.2 %; Hematocrit (blood only) 28.1 % (37.0-47.0); Hemoglobin 9.2 g/dl (12.0-16.0); Immature Granulocytes # (auto) 0.11 K/uL (0.01-0.20); Immature Granulocytes % (auto) 0.9 %; Lymphocytes # (auto) 2.29 K/uL (1.20-3.40); Lymphocytes % (auto) 17.9 %; Mean Corpuscular Hemoglobin 29.2 pg (25.0-34.0); Mean Corpuscular Hgb Conc 32.7 g/dL (32.0-36.0); Mean Corpuscular Volume 89.2 fL (80.0-100.0); Mean Platelet Volume 10.1 fL (9.4-12.4); Monocytes # (auto) 1.96 K/uL (0.11-0.59); Monocytes % (auto) 15.4 %; Neutrophils # (auto) 8.22 K/uL (1.40-6.50); Neutrophils % (auto) 64.4 %; Platelet Count 151 K/uL (130-400); RDW Coefficient of Variation 14.7 % (11.5-14.5); RDW Standard Deviation 46.8 fL (36.4-46.3); Red Blood Count 3.15 M/uL (4.20-5.40); White Blood Count 12.76 K/ul (4.8-10.8)
[2024-09-28 17:53] LABS: Albumin Globulin Ratio 0.5 (0.9-2); BUN Creatinine Ratio 21.2 (10-20); Bilirubin,Total 1.9 mg/dl (0.2-1.0); Calcium 8.4 mg/dl (8.6-10.3); Creatinine Clr Calc Pharmacy 36.3 ml/min; Globulin 3.9 gm/dl (2.5-4.0); Potassium 4.4 mmol/L (3.5-5.1); Total Protein 5.9 gm/dl (6.0-8.3)
--- NOTE | 2024-09-28 18:28 | Emergency Department Note ---
Impression & Plan Femoral distal fracture, CHI (closed head injury), Fall, Weakness, Ambulatory dysfunction ED Provider Note NAME: HOSSEIN MCALLISTER AGE: 69 SEX: F : 1955 ARRIVES VIA: Ambulance INFORMANT: Patient, ED PROVIDER(S): Mihaela Key MD CHIEF COMPLAINT: Fall, knee pain HPI: This is a 69-year-old female presenting after a fall. Patient was notes that she was going to the bathroom last night at her nursing facility patient felt a pop in her right knee and then could not walk further. She was assisted by staff the ground. She notes that she was lowered to the ground but had her right knee underneath her. She states she did not actually fall however. She leaned against the wall and was lowered down to the ground. She notes left- sided neck pain at this time. They did x-rays at the facility and notes that her knee hardware is possibly broken. She is due for further evaluation. ROS: See above HPI for pertinent positives & negatives. A total of 10 systems reviewed and were otherwise negative. PAST MEDICAL HISTORY: See Below PAST SURGICAL HISTORY: See Below FAMILY HISTORY: See Below SOCIAL HISTORY: See Below HOME MEDICATIONS: See Below ALLERGIES: See Below VITALS: See Below PHYSICAL EXAMINATION: General: Chronically ill-appearing, elevated BMI Head: Normocephalic and atraumatic Eyes: Normal inspection, extraocular muscles intact Ear, nose, throat: Normal external exam Neck: Normal range of motion Respiratory: lungs clear to auscultation bilaterally Cardiovascular: Regular rate/rhythm, no murmur GI: soft, nontender, no guarding or rebound Extremities: Significant right knee pain/swelling, 2+ pulses Neuro: The patient awake and alert, appropriately conversive, no focal deficits, symmetric faces Skin: Warm, dry, and intact MEDICAL DECISION MAKING: This is a 69-year-old female presenting after a fall. Patient was lowered to the ground but had imaging that suggest fracture of the hardware. Will repeat the imaging as I have no access to these records. Initial do CT of the head, C- spine due to patient's complaint of neck pain. Will do x-ray of her hip and knee as well. -Blood was reviewed showing leukocytosis of 12.76, anemia to 9.2. Patient's electrolytes within normal limits. Creatinine 2.08. Otherwise patient's LFTs fairly reassuring with a total bilirubin of 1.9. -CT of the head and C-spine are negative at this time. Does reveal right pleural effusion, spinal stenosis and right neural mohan narrowing -Otherwise patient's hip x-ray as independent interpreted by me reveals no osseous fracture or dislocation -Patient's knee x-ray does reveal a displaced comminuted distal femoral shaft fracture -Will place patient in knee immobilizer at this time -Have sent Dr. Alcantara images and discussed this patient with him directly. Reach out to his colleagues at the same orthopedic group to discuss -Dr. Alcantara reviewed case with his colleagues who state that patient would likely require higher level of care at this time. -Discussed need for transfer to outside hospital at this time with the patient, sister and the son via phone. -Family discussed plans and decisions made by both son and patient that patient like to go comfort care. Patient does not want extensive surgery including knee repair. She wants to be on hospice instead. At this time will defer transfer at the patient's request for initiation of hospice. She states that she would not want extensive surgery of her knee due to the high risk and quality of life she currently has with her chronic comorbid conditions -Discussed care with [facility] hospitalist group, Dr. Beltran Differential diagnosis: Femur fracture, peristolic fracture, hip fracture, intracranial hemorrhage, cervical spine fracture Independent History obtained from: Sister, son Diagnostics interpreted by me: ECG: None Cardiac Monitoring: An order was placed for continuous cardiac monitoring. The monitor shows a rate of 70 with sinus rhythm. Past Med/Surg History Problem List (Updated 09/28/24 @ 23:12 by Mihaela Key MD) Femoral distal fracture (Acute) SMALL (nonalcoholic steatohepatitis) Femoral neck fracture Comfort measures only status H/O stroke without residual deficits Diabetic peripheral neuropathy Special screening for malignant neoplasm of colon Chest pain Concussion DVT prophylaxis Neck pain Hypokalemia Stroke Hyperammonemia (Acute) MARY ELLEN (acute kidney injury) (Acute) Right sided weakness (Acute) Hepatic encephalopathy (Acute) Altered mental status (Acute) CKD (chronic kidney disease) stage 2, GFR 60-89 ml/min Basal ganglia degeneration Atypical parkinsonism Contusion of face (Acute) Ambulatory dysfunction (Acute) Weakness (Acute) Fall (Acute) CHI (closed head injury) (Acute) Abnormal finding on CT scan Hepatic encephalopathy Cirrhosis Low back pain Right knee pain Chronic diastolic heart failure Bilateral shoulder pain Edema Degenerative joint disease Obesity Autonomic neuropathy Uncontrolled type 2 diabetes mellitus with neurologic complication, with long- term current use of insulin Epigastric pain Colon polyp Dysphagia Shortness of breath History of skin cancer Depression (Chronic) Diffuse myofascial pain syndrome Fatty liver PER PT DM2 (diabetes mellitus, type 2) (Chronic) IDDM GARRETT on CPAP (Chronic) Gastroparesis (Chronic) HTN (hypertension) (Chronic) HLD (hyperlipidemia) (Chronic) ROME (generalized anxiety disorder) (Chronic) IBS (irritable bowel syndrome) (Chronic) GERD (gastroesophageal reflux disease) (Chronic) History of left heart catheterization (LHC) (Chronic) "normal 2001" Hx MRSA infection Medical History [facility] resident SMALL (nonalcoholic steatohepatitis) 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 Heart failure Hepatic encephalopathy Major depressive disorder Fall Constipation Morbid obesity with BMI of 45.0-49.9, adult History of COVID-19 History of anesthesia reaction Nausea and vomiting after administration of anesthetic agent Chronic kidney disease Diverticular disease Osteoarthritis Cancer Occasional tremors Migraine Congestive heart failure Cardiac murmur Surgical History History of total knee replacement Cancer History of bladder surgery History of colonoscopy History of tooth extraction H/O eye surgery H/O esophagogastroduodenoscopy S/P VA-BSO History of appendectomy S/P cholecystectomy Family History Father Diabetes Sister Ovarian cancer Family history of diabetes mellitus Sister Family history of diabetes mellitus Mother Breast cancer Family history of reaction to anesthesia Grandmother (Maternal) Myocardial infarction Uncle Prostate cancer Other Cancer Gallbladder disease Heart disease Hypertension Lung disease Denies family history of Colon cancer Social History Smoking Status: Never smoker Second Hand Exposure: No; Do You Dip or Chew Tobacco: No; Hx Alcohol Use: No Hx Substance Use: No Preferred Language: [place] Communication Ability: Effective Visual Impairment: No Limitations Hearing Ability: Normal Tortilla Maker Required: No Beliefs That Will Affect Care: None marital status: Current Living Situation: Assisted Current Living Situation Comment: roommate at independent living facility current occupational status: 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 Feels Safe at Home: Yes Childhood Exposure to Second-Hand Smoke: Yes Diet: regular Dental Care, Regularly: Yes Physical Activity Frequency: 3-4 Times per Week Seatbelt Use: always Sunscreen Use: Yes Assistive Devices: CPAP Allergies Allergies Allergy/AdvReac Type Severity Reaction Status Date / Time ciprofloxacin Allergy Intermediate MOUTH Verified 09/28/24 17:59 BLISTERS, HIVES morphine Allergy Intermediate HIVES, Verified 09/28/24 17:59 "DEATHLY ILL", THROWS UP oxycodone Allergy Intermediate HIVES, Verified 09/28/24 17:59 VOMITING penicillin V Allergy Intermediate HIVES Verified 09/28/24 17:59 Home Meds Home Medications Medication Instructions Recorded Confirmed nitroglycerin 0.4 mg sublingual 0.4 mg sublingual DIRECTED PRN 10/10/18 09/28/24 tablet (Nitrostat) Chest Pain lancets (OneTouch UltraSoft #100 ea 04/05/20 01/12/24 Lancets) nadolol 20 mg tablet 10 mg PO BID 10/11/21 09/28/24 ondansetron 4 mg disintegrating 4 mg PO Q8 PRN NAUSEA/VOMITING 07/14/22 09/28/24 tablet lidocaine 4 % topical patch 1 patch topical BID 08/21/22 09/28/24 rifaximin 550 mg tablet (Xifaxan) 550 mg PO BID 08/21/22 09/28/24 ascorbic acid (vitamin C) 500 mg 500 mg PO 3XWK 10/16/22 09/28/24 tablet (Vitamin C) bisacodyl 10 mg rectal suppository 10 mg NV UD PRN GIVE ON DAY 5 OF 10/16/22 09/28/24 (Dulcolax (bisacodyl)) NO BM. cholecalciferol (vitamin D3) 25 25 mcg PO 3XWK 10/16/22 09/28/24 mcg (1,000 unit) chewable tablet (Vitamin D3) sodium phosphates 19 gram-7 118 ml NV DAILY PRN GIVE AFTER 10/16/22 09/28/24 gram/118 mL enema (Fleet Enema) BISACODYL ON DAY 6 NO BM. torsemide 20 mg tablet 20 mg PO 6XWK 10/16/22 09/28/24 clotrimazole 1 % topical cream 1 applic topical BID 12/30/22 09/28/24 carboxymethylcellulose sodium 0.5 1 drp ophthalmic (eye) QID 07/03/23 09/28/24 % eye drops (Refresh Tears) insulin aspart U-100 100 unit/mL 0 unit subcut DIRECTED 07/03/23 09/28/24 (3 mL) subcutaneous pen (Novolog FlexPen U-100 Insulin aspart) spironolactone 25 mg tablet 25 mg PO 2XWK 07/03/23 09/28/24 Stable Gi Probiotic 250 mg PO .AC LUNCH 09/28/24 09/28/24 acetaminophen 500 mg tablet 500 mg PO Q12H PRN Pain 09/28/24 09/28/24 (Tylenol Extra Strength) albuterol sulfate 90 mcg/actuation 2 puff inhalation Q4H PRN 09/28/24 09/28/24 aerosol inhaler Shortness Of Breath Or Wheezing bupropion HCl 150 mg tablet,12 hr 150 mg PO DAILY 09/28/24 09/28/24 sustained-release calamine 3 %-zinc oxide 20 % 1 applic topical HS 09/28/24 09/28/24 topical cream (Thera Calazinc) conjugated estrogens 0.625 mg/gram 1 applic vaginal HS 09/28/24 09/28/24 vaginal cream (Premarin) insulin NPH isoph U-100 human 100 40 unit subcut DAILYBB 09/28/24 09/28/24 unit/mL (3 mL) subcutaneous pen (Novolin N FlexPen) lactulose 10 gram/15 mL oral 20 g PO QID 09/28/24 09/28/24 solution lidocaine 4 % topical cream 1 applic topical BID 09/28/24 09/28/24 miconazole nitrate 2 % topical 1 applic topical HS 09/28/24 09/28/24 powder (Micro-Guard) miconazole nitrate 2 % topical 1 applic topical HS 09/28/24 09/28/24 powder (Remedy Antifungal) nystatin 100,000 unit/mL oral 4 ml PO TID 09/28/24 09/28/24 suspension omeprazole 20 mg tablet,delayed 20 mg PO DAILY PRN GERD 09/28/24 09/28/24 release sodium chloride 0.65 % nasal spray 2 spray intranasal TID 09/28/24 09/28/24 aerosol (Saline Nasal) tramadol 50 mg tablet 50 mg PO HS 09/28/24 09/28/24 tramadol 50 mg tablet 50 mg PO Q8H PRN MOD TO SEREVE PAIN 09/28/24 09/28/24 zinc oxide 40 % topical ointment 1 applic topical HS 09/28/24 09/28/24 Previous Rx's Medication Instructions Recorded flash glucose scanning reader #1 ea 06/05/20 (FreeStyle Courtney 2 [place]) BD Ultra-Fine Mini Pen Needle 31 #300 ea 10/30/20 gauge x 3/16" (pen needle, diabetic) Shower Chair #1 ea 03/28/22 blood sugar diagnostic #100 ea 07/01/22 flash glucose sensor (FreeStyle #2 ea 07/01/22 Courtney 2 Sensor kit) miscellaneous medical supply #1 ea 07/25/22 Results & Data (ED) Vital Signs Vital Signs - 24 hr 09/28/24 16:30 09/28/24 16:30 09/28/24 16:56 Temperature 36.7 C Temperature Source Oral Pulse Rate 72 71 71 Pulse Rate from SpO2 Sensor Respiratory Rate 18 18 Respiratory Effort / Characteristics Non-Labored Spontaneous Respiratory Depth Normal Respiratory Pattern Regular Blood Pressure 136/81 106/62 Blood Pressure Mean 99 82 Pulse Oximetry 96 97 Oxygen Delivery Method Room Air Room Air Sepsis Recent Fever Within 48 Hours No Sepsis New/Unexplained Change in Mental Status N/A Sepsis Action Taken by Nursing No Action Required 09/28/24 17:00 09/28/24 17:30 09/28/24 19:30 Temperature Temperature Source Pulse Rate 72 69 69 Pulse Rate from SpO2 Sensor 72 69 Respiratory Rate 15 16 18 Respiratory Effort / Characteristics Respiratory Depth Respiratory Pattern Blood Pressure 141/63 H 138/66 131/51 L Blood Pressure Mean 89 90 96 Pulse Oximetry 97 96 96 Oxygen Delivery Method Room Air Room Air Room Air Sepsis Recent Fever Within 48 Hours Sepsis New/Unexplained Change in Mental Status Sepsis Action Taken by Nursing 09/28/24 20:00 09/28/24 20:00 09/28/24 20:00 Temperature Temperature Source Pulse Rate Pulse Rate from SpO2 Sensor Respiratory Rate Respiratory Effort / Characteristics Respiratory Depth Respiratory Pattern Blood Pressure 126/59 L 126/59 L 126/59 L Blood Pressure Mean 78 78 78 Pulse Oximetry Oxygen Delivery Method Sepsis Recent Fever Within 48 Hours Sepsis New/Unexplained Change in Mental Status Sepsis Action Taken by Nursing 09/28/24 20:09 09/28/24 20:21 09/28/24 20:31 Temperature Temperature Source Pulse Rate 69 69 Pulse Rate from SpO2 Sensor 69 69 Respiratory Rate 17 25 H Respiratory Effort / Characteristics Respiratory Depth Respiratory Pattern Blood Pressure 126/54 L Blood Pressure Mean 85 Pulse Oximetry 93 95 Oxygen Delivery Method Sepsis Recent Fever Within 48 Hours Sepsis New/Unexplained Change in Mental Status Sepsis Action Taken by Nursing 09/28/24 20:31 09/28/24 20:31 09/28/24 20:31 Temperature Temperature Source Pulse Rate Pulse Rate from SpO2 Sensor Respiratory Rate Respiratory Effort / Characteristics Respiratory Depth Respiratory Pattern Blood Pressure 126/54 L 126/54 L 126/54 L Blood Pressure Mean 85 85 85 Pulse Oximetry Oxygen Delivery Method Sepsis Recent Fever Within 48 Hours Sepsis New/Unexplained Change in Mental Status Sepsis Action Taken by Nursing 09/28/24 20:31 09/28/24 20:31 09/28/24 20:31 Temperature Temperature Source Pulse Rate Pulse Rate from SpO2 Sensor Respiratory Rate Respiratory Effort / Characteristics Respiratory Depth Respiratory Pattern Blood Pressure 126/54 L 126/54 L 126/54 L Blood Pressure Mean 85 85 85 Pulse Oximetry Oxygen Delivery Method Sepsis Recent Fever Within 48 Hours Sepsis New/Unexplained Change in Mental Status Sepsis Action Taken by Nursing 09/28/24 20:31 09/28/24 20:31 09/28/24 20:31 Temperature Temperature Source Pulse Rate Pulse Rate from SpO2 Sensor Respiratory Rate Respiratory Effort / Characteristics Respiratory Depth Respiratory Pattern Blood Pressure 126/54 L 126/54 L 126/54 L Blood Pressure Mean 85 85 85 Pulse Oximetry Oxygen Delivery Method Sepsis Recent Fever Within 48 Hours Sepsis New/Unexplained Change in Mental Status Sepsis Action Taken by Nursing 09/28/24 20:31 09/28/24 20:39 09/28/24 20:40 Temperature Temperature Source Pulse Rate 67 68 Pulse Rate from SpO2 Sensor 68 Respiratory Rate 16 Respiratory Effort / Characteristics Respiratory Depth Respiratory Pattern Blood Pressure 126/54 L Blood Pressure Mean 85 Pulse Oximetry 94 Oxygen Delivery Method Sepsis Recent Fever Within 48 Hours Sepsis New/Unexplained Change in Mental Status Sepsis Action Taken by Nursing 09/28/24 20:51 Temperature Temperature Source Pulse Rate 69 Pulse Rate from SpO2 Sensor 69 Respiratory Rate 17 Respiratory Effort / Characteristics Respiratory Depth Respiratory Pattern Blood Pressure Blood Pressure Mean Pulse Oximetry 94 Oxygen Delivery Method Sepsis Recent Fever Within 48 Hours Sepsis New/Unexplained Change in Mental Status Sepsis Action Taken by Nursing Laboratory Data 09/28/24 16:27 09/28/24 16:27 Lab Results 09/28/24 Range/Units 16:27 WBC 12.76 H (4.8-10.8) K/ul RBC 3.15 L (4.20-5.40) M/uL Hgb 9.2 L (12.0-16.0) g/dl Hct 28.1 L (37.0-47.0) % MCV 89.2 (80.0-100.0) fL MCH 29.2 (25.0-34.0) pg MCHC 32.7 (32.0-36.0) g/dL RDW Std Deviation 46.8 H (36.4-46.3) fL RDW Coeff of Vanesa 14.7 H (11.5-14.5) % Plt Count 151 (130-400) K/uL MPV 10.1 (9.4-12.4) fL Immature Gran % (Auto) 0.9 % Neut % (Auto) 64.4 % Lymph % (Auto) 17.9 % Lares % (Auto) 15.4 % Eos % (Auto) 1.2 % Baso % (Auto) 0.2 % Neut # (Auto) 8.22 H (1.40-6.50) K/uL Lymph # (Auto) 2.29 (1.20-3.40) K/uL Lares # (Auto) 1.96 H (0.11-0.59) K/uL Eos # (Auto) 0.15 (0.00-0.50) K/uL Baso # (Auto) 0.03 (0.00-0.20) K/uL Immature Gran # (Auto) 0.11 (0.01-0.20) K/uL Sodium 135 L (136-145) mmol/L Potassium 4.4 (3.5-5.1) mmol/L Chloride 101 (98-107) mmol/L Carbon Dioxide 30 (21-32) mmol/L Anion Gap 4 (3-11) BUN 44 H (6-23) mg/dl Creatinine 2.08 H (0.6-1.2) mg/dl Est Cr Clr Drug Dosing 36.3 ml/min eGFR 25.32 BUN/Creatinine Ratio 21.2 H (10-20) Glucose 213 H (70-99(Fasting)) mg/dl Calcium 8.4 L (8.6-10.3) mg/dl Total Bilirubin 1.9 H (0.2-1.0) mg/dl AST 66 H (13-39) U/L ALT 26 (7-52) U/L Alkaline Phosphatase 136 H (34-104) U/L Total Protein 5.9 L (6.0-8.3) gm/dl Albumin 2.0 L (3.4-5.0) gm/dl Globulin 3.9 (2.5-4.0) gm/dl Albumin/Globulin Ratio 0.5 L (0.9-2) Administered Medications Hydromorphone HCl (Hydromorphone Bolus From Bag) 0.2 mg IV Q15M PRN PRN Reason: Comfort Care Parameters Stop: 10/12/24 21:23 Last Admin: 09/28/24 23:06 Dose: 0.2 mg Documented By: GLYNN Co-signed By: RINA Hydromorphone HCl (Dilaudid) 100 mg in 100 mls @ 0.2 mls/hr IV .Q96H TEMI; Protocol Stop: 10/12/24 21:29 Last Admin: 09/28/24 23:00 Dose: 0.2 mg/hr, 0.2 mls/hr Documented By: GLYNN Co-signed By: RINA Discontinued Medications Fentanyl Citrate (Fentanyl Citrate Pf 100 Mcg/2 Ml Vial) 50 mcg IV NOW STA Stop: 09/28/24 18:37 Last Admin: 09/28/24 18:42 Dose: 50 mcg Documented By: ROBINSON Hydromorphone HCl (Hydromorphone Inj 0.5 Mg/0.5 Ml Syr) 0.5 mg IV NOW STA Stop: 09/28/24 20:43 Last Admin: 09/28/24 20:58 Dose: 0.5 mg Documented By: ROBINSON Acetaminophen (Ofirmev) 1,000 mg in 100 mls @ 400 mls/hr IV NOW STA Stop: 09/28/24 18:49 Last Infusion: 09/28/24 19:26 Dose: Infused Documented By: Admin: 09/28/24 18:42 Dose: 400 mls/hr Documented By: ROBINSON Imaging Data Radiologist's Impression: Cervical Spine CT 09/28/24 17:26 Clinical history: Fall Technique: Axial computed tomography images were obtained of the cervical spine without intravenous contrast. Sagittal and coronal reconstructions were obtained Chelsie is made to the prior CT dated 08/11/2022 Findings: No fracture is identified. No listhesis is seen. No focal osseous lesion is evident. There is atlantoaxial osteoarthritis At C2-3, no disc herniation is identified. There is no spinal stenosis. The neural foramen are patent At C3-4, there is spinal stenosis due to a disc bulge and a central disc protrusion. The neural foramen are patent At C4-5, there is a disc bulge without clear spinal cord deformity. There is mild bilateral neural foramen narrowing At C5-6, there is a disc bulge without spinal stenosis. There is right foramen narrowing that may affect the right C6 nerve root At C6-7, no disc herniation is identified. There is no spinal stenosis. The neural foramen are patent At C7-T1,no disc herniation is identified. There is no spinal stenosis. The neural foramen are patent There is a right pleural effusion. The visualized soft tissues of the neck appear unremarkable. No foreign body is seen Impression: 1. No definite cervical spine fracture 2. Right pleural effusion 3. Spinal stenosis at C3-4 4. Right C5-6 neural foramen narrowing that may affect the right C6 nerve root Electronically signed by Jagjit Fischer 09-28-2024 6:[address] 09/28/24 17:26 Clinical History: Pain after fall Technique: Axial computed tomography images were obtained of the brain from the vertex to the skull base without intravenous contrast. Findings: There is no sign of intracranial hemorrhage. There is normal cheng-white matter differentiation with no sign of acute or old infarction. No midline shift or other form of herniation is identified. There is no hydrocephalus. No obvious mass lesion is seen on this noncontrast examination. There is complete opacification of the left sphenoid sinus. There is mucosal thickening and fluid in the right sphenoid sinus and to a lesser extent the ethmoid and right maxillary sinuses. The mastoid air cells appear clear Impression: 1. Normal appearing brain 2. Acute sinusitis Electronically signed by Jagjit Fischer 09-28-2024 6:26 PM Hip/Pelvis X-Ray 09/28/24 17:26 INDICATION: Pain and injury. TECHNIQUE: One view the pelvis. 2 views of the right hip. COMPARISON: No relevant priors. FINDINGS: No acute fracture or dislocation. No lytic or blastic bony lesions seen. Mild bilateral hip joint space loss. Soft tissues appear unremarkable. IMPRESSION: No acute osseous abnormality evident. Electronically signed by Ankush Polanco 09-28-2024 6:41 PM Knee X-Ray 09/28/24 17:26 INDICATION: Pain and injury. TECHNIQUE: 2 views of the right knee. COMPARISON: No relevant priors. FINDINGS/IMPRESSION: Displaced, comminuted distal femoral shaft fracture. Remaining osseous structures intact. No dislocation. Soft tissue swelling. Electronically signed by Ankush Polanco 09-28-2024 6:41 PM Chest X-Ray 09/28/24 17:27 INDICATION: Chest pain. TECHNIQUE: Frontal radiograph of the chest. COMPARISON: Radiograph from 08/21/2022. FINDINGS: Cardiomegaly. Pulmonary vasculature appear within normal limits. Small right pleural effusion with atelectasis/airspace disease. No pneumothorax. No acute osseous abnormality evident. IMPRESSION: Small right pleural effusion with atelectasis/airspace disease. Electronically signed by nAkush Polanco 09-28-2024 6:41 PM Discharge Plan Visit Data Chief Complaint: Fall Stated Complaint: FALL ED Provider: Mihaela Key Discharge Problem: Femoral distal fracture, CHI (closed head injury), Fall, Weakness, Ambulatory dysfunction Patient Disposition: Admitted As Inpatient Discharge Instructions Interventions: ED Discharge Assessment Last Done: 09/28/24 22:00
--- NOTE | 2024-09-28 18:33 | CT Scan Report ---
Clinical history: Fall Technique: Axial computed tomography images were obtained of the cervical spine without intravenous contrast. Sagittal and coronal reconstructions were obtained Chelsie is made to the prior CT dated 08/11/2022 Findings: No fracture is identified. No listhesis is seen. No focal osseous lesion is evident. There is atlantoaxial osteoarthritis At C2-3, no disc herniation is identified. There is no spinal stenosis. The neural foramen are patent At C3-4, there is spinal stenosis due to a disc bulge and a central disc protrusion. The neural foramen are patent At C4-5, there is a disc bulge without clear spinal cord deformity. There is mild bilateral neural foramen narrowing At C5-6, there is a disc bulge without spinal stenosis. There is right foramen narrowing that may affect the right C6 nerve root At C6-7, no disc herniation is identified. There is no spinal stenosis. The neural foramen are patent At C7-T1,no disc herniation is identified. There is no spinal stenosis. The neural foramen are patent There is a right pleural effusion. The visualized soft tissues of the neck appear unremarkable. No foreign body is seen Impression: 1. No definite cervical spine fracture 2. Right pleural effusion 3. Spinal stenosis at C3-4 4. Right C5-6 neural foramen narrowing that may affect the right C6 nerve root Electronically signed by Jagjit Fischer 09-28-2024 6:31 PM
[2024-09-28] MEDS: ACETAMINOPHEN 1,000 MG/100 ML VIAL IV STA (18:42)
[2024-09-28] MEDS: fentaNYL citrate PF 100 MCG/2 ML VIAL IV STA (18:42)
--- NOTE | 2024-09-28 18:42 | XRay Report ---
INDICATION: Chest pain. TECHNIQUE: Frontal radiograph of the chest. COMPARISON: Radiograph from 08/21/2022. FINDINGS: Cardiomegaly. Pulmonary vasculature appear within normal limits. Small right pleural effusion with atelectasis/airspace disease. No pneumothorax. No acute osseous abnormality evident. IMPRESSION: Small right pleural effusion with atelectasis/airspace disease. Electronically signed by Ankush Polanco 09-28-2024 6:41 PM
--- NOTE | 2024-09-28 18:42 | XRay Report ---
INDICATION: Pain and injury. TECHNIQUE: One view the pelvis. 2 views of the right hip. COMPARISON: No relevant priors. FINDINGS: No acute fracture or dislocation. No lytic or blastic bony lesions seen. Mild bilateral hip joint space loss. Soft tissues appear unremarkable. IMPRESSION: No acute osseous abnormality evident. Electronically signed by Ankush Polanco 09-28-2024 6:41 PM
--- NOTE | 2024-09-28 18:42 | XRay Report ---
INDICATION: Pain and injury. TECHNIQUE: 2 views of the right knee. COMPARISON: No relevant priors. FINDINGS/IMPRESSION: Displaced, comminuted distal femoral shaft fracture. Remaining osseous structures intact. No dislocation. Soft tissue swelling. Electronically signed by Ankush Polanco 09-28-2024 6:41 PM
--- NOTE | 2024-09-28 20:01 | History & Physical Report ---
Date of Service September 28, 2024 Assessment & Plan (1) Comfort measures only status: (2) Femoral neck fracture: Plan Patient is a 69-year-old female with a past medical history of chronic hepatic cirrhosis secondary to 0 hepatitis with portal hypertension, chronic diastolic heart failure, CKD, type II DM on insulin, GARRETT on CPAP. She presented from [facility] after a fall resulting in the ED right displaced comminuted distal femoral shaft fracture. After extensive discussion with patient and her sister, patient opted for comfort/hospice measures with pain control and to stop life- prolonging measures. #comfort measures only palliative medicine consulted Case management consulted Dilaudid drip started on admission Comfort order set for nausea control, pain control, respiratory secretion control, as needed agitation/anxiety management Home medications held unless indicated for comfort reasons discontinue vital signs and labs #femoral neck fracture/fall Right knee XR showed displaced, comminuted distal femoral shaft fracture hip pelvis XR negative, head CT negative, cervical spine CT negative for acute fractures Pain management with Dilaudid drip above Lidocaine patch ordered in ED, may consider transition to fentanyl patch in future if indicated #hepatic cirrhosis LFTs at baseline on admission Discontinue home lactulose and Xifaxan defer repeat labs with comfort #CKD function worsening, however comfort measures, no IVF Cr increased from 0.79 to 2.08 Defer repeat labs with comfort #Diastolic HF CXR showed small right pleural effusion with atelectasis/airspace disease Echo 2022 showed EF 60-65%, grade 1 diastolic dysfunction discontinue Lasix, spironolactone, nadolol #type II DM - discontinue insulin with comfort #GARRETT - continue CPAP HS #depression - continue bupropion #thrush - continue Nystatin 4ml TID - to be completed 10/02, for comfort to assist with dryness associated #GERD - Pantoprazole and Pepcid IV for comfort Diet: regular, easy to chew Dispo: med surg - hospice room Admission and Anticipated Discharge Date Admission Date: 09/28/24 History of Present Illness Chief Complaint: fall Primary Care Provider: Missy Willams Patient is a 69-year-old female with a past medical history of chronic hepatic cirrhosis secondary to 0 hepatitis with portal hypertension, chronic diastolic heart failure, CKD, type II DM on insulin, GARRETT on CPAP. She presented from [facility] after a fall resulting in the ED right displaced comminuted distal femoral shaft fracture. After extensive discussion with patient and her sister, patient would like to go for comfort/hospice measures with pain control and to stop life-prolonging measures. Patient is being admitted for IV pain control and titrate palliative consult. Patient may prefer to not go back to [facility], case management consulted. Patient seen at bedside with her sister present. They were tearful. Patient had extensive discussion with her family earlier including her son, Chiki, who is her power of documentation lead. She stated that she has been weak with the flu and bronchitis for about a week and nursing staff was assisting her to the bathroom when her knee and ankle gave out causing her to fall to the floor. She had difficulty getting up and stated that her leg may have turned behind her. They were able to assist her to her wheelchair and then brought her to the ED due to significant pain. She stated after receiving Tylenol 1000 Mg IV and fentanyl 50 mcg IV she still has 10/10 pain across her right leg and back. She denies any dizziness, lightheadedness, chest pain, shortness of breath. Extensively discussed comfort care and hospice care. Patient's has leukemia and broke his hip 6 weeks ago and has transferred to comfort care at [facility] as well. This is what she would also like. She is unsure if she would like to go back to [facility] versus have continuous care for pain control. She does not think she would want any more life prolonging measures but is unsure about insulin control and hepatitis control, to be discussed with palliative medicine. Her main goal is pain control and to pass peacefully and without pain. She understands that she has liver disease, kidney disease, obesity and that surgical intervention would be high risk. She wishes to be DNR/DNI. Patient stated she has not been taking spironolactone for several weeks because it makes her throw up. She is unsure if she has been getting Lasix. Reviewed records from [facility], no mention of any home medications just past diagnoses. She stated she typically has difficulty with swallowing and has some dysphagia, aspiration precautions. She also is undergoing treatment for thrush that was supposed to begin today, will continue for comfort reasons. She stated that she has some ascites that she was told was unable to be drained due to high risk. Allergies Allergy/AdvReac Type Severity Reaction Status Date / Time ciprofloxacin Allergy Intermediate MOUTH Verified 09/28/24 17:59 BLISTERS, HIVES morphine Allergy Intermediate HIVES, Verified 09/28/24 17:59 "DEATHLY ILL", THROWS UP oxycodone Allergy Intermediate HIVES, Verified 09/28/24 17:59 VOMITING penicillin V Allergy Intermediate HIVES Verified 09/28/24 17:59 Home Medications Medication Instructions Recorded Confirmed Type nitroglycerin 0.4 mg sublingual 0.4 mg sublingual DIRECTED PRN 10/10/18 09/28/24 History tablet (Nitrostat) Chest Pain lancets (OneTouch UltraSoft #100 ea 04/05/20 01/12/24 History Lancets) flash glucose scanning reader #1 ea 06/05/20 01/12/24 Rx (FreeStyle Courtney 2 [place]) BD Ultra-Fine Mini Pen Needle 31 #300 ea 10/30/20 01/12/24 Rx gauge x 3/16" (pen needle, diabetic) nadolol 20 mg tablet 10 mg PO BID 10/11/21 09/28/24 History Shower Chair #1 ea 03/28/22 01/12/24 Rx blood sugar diagnostic #100 ea 07/01/22 01/12/24 Rx flash glucose sensor (FreeStyle #2 ea 07/01/22 01/12/24 Rx Courtney 2 Sensor kit) ondansetron 4 mg disintegrating 4 mg PO Q8 PRN NAUSEA/VOMITING 07/14/22 09/28/24 History tablet miscellaneous medical supply #1 ea 07/25/22 01/12/24 Rx lidocaine 4 % topical patch 1 patch topical BID 08/21/22 09/28/24 History rifaximin 550 mg tablet (Xifaxan) 550 mg PO BID 08/21/22 09/28/24 History ascorbic acid (vitamin C) 500 mg 500 mg PO 3XWK 10/16/22 09/28/24 History tablet (Vitamin C) bisacodyl 10 mg rectal suppository 10 mg [place] UD PRN GIVE ON DAY 5 OF 10/16/22 09/28/24 History (Dulcolax (bisacodyl)) NO BM. cholecalciferol (vitamin D3) 25 25 mcg PO 3XWK 10/16/22 09/28/24 History mcg (1,000 unit) chewable tablet (Vitamin D3) sodium phosphates 19 gram-7 118 ml [place] DAILY PRN GIVE AFTER 10/16/22 09/28/24 History gram/118 mL enema (Fleet Enema) BISACODYL ON DAY 6 NO BM. torsemide 20 mg tablet 20 mg PO 6XWK 10/16/22 09/28/24 History clotrimazole 1 % topical cream 1 applic topical BID 12/30/22 09/28/24 History carboxymethylcellulose sodium 0.5 1 drp ophthalmic (eye) QID 07/03/23 09/28/24 History % eye drops (Refresh Tears) insulin aspart U-100 100 unit/mL 0 unit subcut DIRECTED 07/03/23 09/28/24 History (3 mL) subcutaneous pen (Novolog FlexPen U-100 Insulin aspart) spironolactone 25 mg tablet 25 mg PO 2XWK 07/03/23 09/28/24 History Stable Gi Probiotic 250 mg PO .AC LUNCH 09/28/24 09/28/24 History acetaminophen 500 mg tablet 500 mg PO Q12H PRN Pain 09/28/24 09/28/24 History (Tylenol Extra Strength) albuterol sulfate 90 mcg/actuation 2 puff inhalation Q4H PRN 09/28/24 09/28/24 History aerosol inhaler Shortness Of Breath Or Wheezing bupropion HCl 150 mg tablet,12 hr 150 mg PO DAILY 09/28/24 09/28/24 History sustained-release calamine 3 %-zinc oxide 20 % 1 applic topical HS 09/28/24 09/28/24 History topical cream (Thera Calazinc) conjugated estrogens 0.625 mg/gram 1 applic vaginal HS 09/28/24 09/28/24 History vaginal cream (Premarin) insulin NPH isoph U-100 human 100 40 unit subcut DAILYBB 09/28/24 09/28/24 History unit/mL (3 mL) subcutaneous pen (Novolin N FlexPen) lactulose 10 gram/15 mL oral 20 g PO QID 09/28/24 09/28/24 History solution lidocaine 4 % topical cream 1 applic topical BID 09/28/24 09/28/24 History miconazole nitrate 2 % topical 1 applic topical HS 09/28/24 09/28/24 History powder (Micro-Guard) miconazole nitrate 2 % topical 1 applic topical HS 09/28/24 09/28/24 History powder (Remedy Antifungal) nystatin 100,000 unit/mL oral 4 ml PO TID 09/28/24 09/28/24 History suspension omeprazole 20 mg tablet,delayed 20 mg PO DAILY PRN GERD 09/28/24 09/28/24 History release sodium chloride 0.65 % nasal spray 2 spray intranasal TID 09/28/24 09/28/24 History aerosol (Saline Nasal) tramadol 50 mg tablet 50 mg PO HS 09/28/24 09/28/24 History tramadol 50 mg tablet 50 mg PO Q8H PRN MOD TO SEREVE PAIN 09/28/24 09/28/24 History zinc oxide 40 % topical ointment 1 applic topical HS 09/28/24 09/28/24 History Past Med/Surg History Problem List (Updated 09/28/24 @ 23:12 by Mihaela Key MD) Femoral distal fracture (Acute) SMALL (nonalcoholic steatohepatitis) Femoral neck fracture Comfort measures only status H/O stroke without residual deficits Diabetic peripheral neuropathy Special screening for malignant neoplasm of colon Chest pain Concussion DVT prophylaxis Neck pain Hypokalemia Stroke Hyperammonemia (Acute) MARY ELLEN (acute kidney injury) (Acute) Right sided weakness (Acute) Hepatic encephalopathy (Acute) Altered mental status (Acute) CKD (chronic kidney disease) stage 2, GFR 60-89 ml/min Basal ganglia degeneration Atypical parkinsonism Contusion of face (Acute) Ambulatory dysfunction (Acute) Weakness (Acute) Fall (Acute) CHI (closed head injury) (Acute) Abnormal finding on CT scan Hepatic encephalopathy Cirrhosis Low back pain Right knee pain Chronic diastolic heart failure Bilateral shoulder pain Edema Degenerative joint disease Obesity Autonomic neuropathy Uncontrolled type 2 diabetes mellitus with neurologic complication, with long- term current use of insulin Epigastric pain Colon polyp Dysphagia Shortness of breath History of skin cancer Depression (Chronic) Diffuse myofascial pain syndrome Fatty liver PER PT DM2 (diabetes mellitus, type 2) (Chronic) IDDM GARRETT on CPAP (Chronic) Gastroparesis (Chronic) HTN (hypertension) (Chronic) HLD (hyperlipidemia) (Chronic) ROME (generalized anxiety disorder) (Chronic) IBS (irritable bowel syndrome) (Chronic) GERD (gastroesophageal reflux disease) (Chronic) History of left heart catheterization (LHC) (Chronic) "normal 2001" Hx MRSA infection Medical History prison resident SMALL (nonalcoholic steatohepatitis) 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 Heart failure Hepatic encephalopathy Major depressive disorder Fall Constipation Morbid obesity with BMI of 45.0-49.9, adult History of COVID-19 History of anesthesia reaction Nausea and vomiting after administration of anesthetic agent Chronic kidney disease Diverticular disease Osteoarthritis Cancer Occasional tremors Migraine Congestive heart failure Cardiac murmur Surgical History History of total knee replacement Cancer History of bladder surgery History of colonoscopy History of tooth extraction H/O eye surgery H/O esophagogastroduodenoscopy S/P VA-BSO History of appendectomy S/P cholecystectomy Family History Father Diabetes Sister Ovarian cancer Family history of diabetes mellitus Sister Family history of diabetes mellitus Mother Breast cancer Family history of reaction to anesthesia Grandmother (Maternal) Myocardial infarction Uncle Prostate cancer Other Cancer Gallbladder disease Heart disease Hypertension Lung disease Denies family history of Colon cancer Social History Smoking Status: Never smoker Second Hand Exposure: No; Do You Dip or Chew Tobacco: No; Hx Alcohol Use: No Hx Substance Use: No Preferred Language: Polish Communication Ability: Effective Visual Impairment: No Limitations Hearing Ability: Normal Front Office Developer Required: No Beliefs That Will Affect Care: None marital status: Current Living Situation[facility] Current Living Situation Comment: roommate at independent living facility current occupational status: retired 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 HEENT- EOMI, mucous membranes Dry. Hearing grossly intact. Heart-normal S1 and S2. No murmurs, rubs or gallops. Lungs- decreased bilaterally, no respiratory distress, no accessory muscle use. Abdomen-normal bowel sounds and soft. No ascites noted. Non-tender. Extremities- no clubbing, cyanosis. +2 pitting edema bilaterally. Right leg with erythema and externally rotated. Psychiatric- tearful affect. Results & Data Results & Data Vital Signs (Past 12 Hours) Vital Signs Temp Pulse Resp BP Pulse Ox O2 Del Method 09/28/24 17:30 69 16 138/66 96 Room Air 09/28/24 17:00 72 15 141/63 H 97 Room Air 09/28/24 16:56 71 09/28/24 16:30 71 18 106/62 97 Room Air 09/28/24 16:30 36.7 C 72 18 136/81 96 Room Air Laboratory Results reviewed cbc and cmp Diagnostic Findings reviewed CXR, knee XR, hip/pelvis XR, head CT, cervical spine CT Medications Administered ed - Tylenol 1000mg IV, fentayl 50 mcg IV Code Status & VTE Plan Code Status dnr/dni VTE Prophylaxis Plan VTE Prophylaxis will be ordered: Yes Supervising Physician Co-Signing Physician Notes Attending addendum: I have physically seen this patient, have supervised the BRANDYN's activities, and agree with the H&P unless as otherwise noted. Assessment and Plan: The patient is a 69-year-old female with past medical history including chronic hepatic cirrhosis, portal hypertension, chronic diastolic heart failure, CKD, diabetes mellitus type 2 on insulin, GARRETT on CPAP. She presents to the emergency department after a fall at [facility], and inability ambulate on her right leg. X-rays in the emergency department showed a right displaced comminuted distal femoral shaft fracture. After discussion with family and patient, the patient preferred to not undergo surgery, and has elected to be admitted to comfort care/hospice measures with pain control, and to not use any lifelong measures. She reports that she has no quality of life, and prefers to have comfort measures. #Comfort measures admission- Patient reports that she would not be able to tolerate surgery, her family agrees, and patient will be admitted to comfort measures for pain control. Consult palliative medicine Consult case management Comfort care order set instituted for nausea control, pain control, respiratory secretions, and agitation/anxiety as needed Home medications will be held unless for comfort reasons Will discontinue all vital signs and laboratories Dilaudid continuous infusion started at admission Distal femoral neck fracture status post fall/pain control- Admitted to comfort measures as noted Of note, her presently is in comfort measures as well Continue all other medications and orders as noted PG Care Time/CCT Total # of Minutes Spent Total Time Spent with Patient: Total time spent is greater than 50% in coordination of care (as documented) at patient's floor/unit and/or counseling patient: Coding Level of Care Code 02651 INT INP/OBS CARE 3/75MIN Diagnoses Comfort measures only status Z51.5 Femoral neck fracture S72.009A
[2024-09-28] MEDS: HYDROmorphone INJ 0.5 MG/0.5 ML SYR IV STA (20:58)
[2024-09-28] MEDS ORDERED: STAT IV Infusion **Titration per Protocol STA (21:24)
--- NOTE | 2024-09-28 21:31 | Advance Care Plan Prog Note ---
Advanced Care Planning Note Date of Discussion September 28, 2024 ACP Discussion Diagnoses requiring ACP discussion: femoral neck fracture A [id number] discussion with the patient and her sister regarding the patient's advanced care planning took place during this hospitalization on the above date. The discussion included the explanation and discussion of advance directives and associated forms/documents, as well as the patient's current code status. We also discussed at length the patient's medical conditions (both acute and chronic), general prognosis, treatment options, and goals of care. The following summarizes the discussion: Patient understands her prognosis with chronic cirrhosis, CKD, type II DM, obesity. After long discussion with her family, she wishes to move to comfort measures only for pain control after sustaining a displaced distal femoral shaft fracture of her right lower extremity after a fall at her facility. She understands that she is at extremely high risk for surgery and would not like to undergo that as she is may still experience pain after. She does not want to continue treatment for any life-saving measures with cirrhosis, diabetes, heart failure. She would only like to continue measures for comfort reasons as in pain control, GERD t reatment, and thrush treatment. Her goal is pain control, she would like to pass peacefully and without pain. She would like to be DNR/DNI. DPOA-HC/Surrogate Decision Maker Son, Chiki, is power of patent prosecution attorney Sister, Jennifer, is second contact Jennifer's daughter, Gifty, is third contact, she is out of town currently Jennifer requested that she be updated with any changes as she lives closer to the hospital. Patient's son Chiki lives in [place]. Status Resuscitation Status DNR/DNI No Resuscitation Total Time I spent a total of 70 minutes was spent on this discussion, including counseling, answering questions, and completing, if any, pertinent advanced care planning forms/documents.
[2024-09-28 21:53] VITALS: PULSE 70
[2024-09-28] MEDS ORDERED: MELATONIN 3 MG TAB PO PRN (22:28)
[2024-09-28] MEDS ORDERED: chlorproMAZINE HCL 25 MG TAB PO PRN (22:28)
[2024-09-28] MEDS ORDERED: HALOPERIDOL ORAL SOLN 2 MG/ML PO PRN (22:28)
[2024-09-28] MEDS ORDERED: GLYCOPYRROLATE 0.2 MG/ML VIAL IV PRN (22:28)
[2024-09-28] MEDS ORDERED: DOCUSATE SODIUM 100 MG CAP PO PRN (22:28)
[2024-09-28] MEDS ORDERED: ONDANSETRON INJ 2 MG/ML 2 ML VIAL IV PRN (22:28)
[2024-09-28] MEDS ORDERED: ALBUTEROL HFA 8 GM INHALER INH PRN (22:28)
[2024-09-28 22:49] VITALS: BP 133/63; RESP 16; TEMP 97.7; O2SAT 95
[2024-09-28] MEDS: HYDROmorphone 100 MG/100 ML BAG IV SCH (23:00)
[2024-09-28] MEDS: HYDROmorphone BOLUS from BAG IV PRN (23:06)
[2024-09-28] MEDS: LORazepam 2 MG/1 ML VIAL IV PRN (23:58)
[2024-09-28] MEDS: FAMOTIDINE 20MG IV PUSH 20 MG/5 ML SYR IV SCH (23:59)
[2024-09-29] MEDS: PANTOprazole 40 MG/10 ML SYR IV SCH
[2024-09-29] MEDS: LIDOCAINE 5% 1 PATCH TD STA (00:01)
[2024-09-29] MEDS: MICONAZOLE NITRATE POWDER 85 GM TOP SCH (00:05)
[2024-09-29] MEDS: SODIUM CHLORIDE 0.65% NA SOLN 45 ML (OCEAN) SCH (00:06)
[2024-09-29] MEDS: NYSTATIN SUSP 500,000 U/5 ML UDC PO SCH (00:06)
[2024-09-29 00:27] LABS: Appearance Urine Clear (Clear); Bilirubin Urine Negative (Negative); Blood Urine Negative (Negative); Color Urine Yellow; Glucose Urine UA Negative (Negative); Ketones Urine Negative (Negative); Leukocyte Esterase Urine Negative (Negative); Nitrite Urine Negative (Negative); Protein Urine Negative (Negative); Specific Gravity Urine 1.011 (1.000-1.030); Urobilinogen Urine Negative (Negative)
--- OUTSIDE RECORDS SUMMARY | 2024-09-29 03:33 | External Medical Summary ---
Author Name Unknown Address Unknown Organization K01:[facility] - [address] [place] [address] Laboratory Report Ordering Provider Test Date Status MONICA FERNANDES 09/19/2024 05:33:00 Final Observation Date Value Abnormality Reference (Units ) Status Ammonia 09/19/2024 05:33:00 65 Above high normal 11 -35 (umol/L) Final Performing Location [facility] - [address] [place] [id number]
--- OUTSIDE RECORDS SUMMARY | 2024-09-29 03:33 | External Medical Summary ---
Author Name Unknown Address Unknown Organization K0G:[facility] [facility] [address] [place] [address] Laboratory Report Ordering Provider Test Date Status MONICA FERNANDES 09/19/2024 05:33:00 Final Observation Date Value Abnormality Reference (Units ) Status BUN 09/19/2024 05:33:00 29 Above high normal 6-20 (mg/dL) Final Creatinine 09/19/2024 05:33:00 2.2 Above high normal 0.5-1.0 (mg/dL) Final Glomerular filtration rate/1.73 sq M.predicted [Volume Rate/Area] in Serum, Plasma or Blood by Creatinine-based formula (CKD-EPI) 09/19/2024 05:33:00 24 Below low normal >=60 (mL/min) Final eGFR is calculated based on the CKD-EPI 2020 equation. Sodium 09/19/2024 05:33:00 136 135-146 (m mol/L) Final Potassium 09/19/2024 05:33:00 4.0 3.5-5.1 (m mol/L) Final Cl 09/19/2024 05:33:00 101 98-107 (mm ol/L) Final CO2 09/19/2024 05:33:00 28 22-32 (mmo l/L) Final Anion gap 09/19/2024 05:33:00 7 7-15 (mmol /L) Final Glucose 09/19/2024 05:33:00 165 Above high normal 70 -120 (mg/dL) Final Albumin 09/19/2024 05:33:00 2.6 Below low normal 3.8 -5.0 (g/dL) Final AST (Aspartate aminotransferase) 09/19/2024 05:33:00 90 Above high normal 10-35 (U/L) Final Alk Phos 09/19/2024 05:33:00 152 Above high normal 35 -130 (U/L) Final Bilirubin, Total 09/19/2024 05:33:00 0.7 <=1 .2 (mg/dL) Final Calcium 09/19/2024 05:33:00 8.1 Below low normal 8.4 -10.2 (mg/dL) Final Protein 09/19/2024 05:33:00 6.5 6.0-8.3 (g /dL) Final ALT (Alanine aminotransferase) 09/19/2024 05:33:00 40 Above high normal 10-35 (U/L) Final Performing Location [facility] - [address] [facility] [id number]
--- OUTSIDE RECORDS SUMMARY | 2024-09-29 03:33 | External Medical Summary | Summary of Care ---
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 Encounter Details Date Type Department Care Team (Late st Contact Info) Description 09/07/[address] [facility] [address] [place] [id number] Keshia Terrazas N, RT (R) Information (Labs not good enough to use I... Allergies Active Allergy Reactions Criticality Noted Date Comments Ciprofloxacin 10/23/2009 Swelling of lips, hives Ciprofloxacin High 12/30/2022 Other reaction(s): MOUTH BLISTERS, HIVES Clindamycin Itching Medium 05/09/2021 Resolved with Benadryl Cephalexin Rash 05/09/2021 Morphine High 12/30/2022 Other reaction(s): HIVES, "DEATHLY ILL", THROWS UP Oxycodone High 03/05/2004 rash/vomiting Other reaction(s): HIVES, VOMITING Penicillin V High 12/30/2022 Other reaction(s): HIVES Penicillins 03/05/2004 rash documented as of this encounter (statuses as of 09/09/2024) Medications DIURETIC TITRATION PLANIndications:Aquiles ambriz diastolic congestive heart failure (HCC) If no improvement on day 3, contact heart failure managing provider or [facility] field nurse case manager 1 Each 01/19/20 19 Active Medical Compression Stockings Wear during the day, Take off at night 2 Each 10/06/19 21 Active CPAP every night at bedtime . Active OneTouch Verio In Vitro Strip (Glucose Blood)Indications: Type 2 diabetes mellitus with hemoglobin A1c goal of less than 8.5% (HCC) Use to test blood sugar at least once a day DX e11.9 100 Strip 3 12/03/19 22 Active OneTouch Delica Plus [id number] ns:Type 2 diabetes mellitus with hemoglobin A1c goal of less than 8.5% (HCC) Use as directed . Use to test blood sugar once a day DX e11.9 100 Each 3 12/03/19 22 Active Ondansetron 4 MG Oral Tablet Disintegrating (Zofran)Indication s:Nausea and vomiting, unspecified vomiting type Place 1 Tablet (4 mg) on tongue every 8 hours as needed for Nausea. dissolve on tongue. 20 Tablet 06/17/20 22 Active Ascorbic Acid 500 MG Oral Tablet Take 1 Tablet by mouth daily. 10/02/19 23 Active Refresh Tears 0.5 % Ophthalmic Solution 1 Drop 4 times a day as needed. 09/20/19 23 Active Vitamin D3 25 MCG (1000 UT) Oral Tablet (Vitamin D3) Take 1 Tablet by mouth in the morning. 10/02/19 23 Active Clotrimazole 1 % External Cream (Lotrimin) Apply topically daily as needed on abdominal folds 09/10/19 23 Active FreeStyle Courtney 2 Sensor Use as directed. 07/01/20 22 Active Diclofenac Sodium 1 % External Gel (Voltaren) Apply a small amount topically four times daily as needed 09/23/19 23 Active Glucagon Emergency 1 MG Injection Kit 08/22/19 23 Active NovoLOG 100 UNIT/ML Injection Solution Inject under the skin three times a day before meals. Inject 5 units with breakfast, 20 units with lunch, 30 units with supper 09/11/19 23 Active NovoLIN N FlexPen 100 UNIT/ML Subcutaneous Suspension Pen-injector Inject under the skin daily 50 units in the morning and 35 units in the evening 09/25/19 23 Active Lidocaine Pain Relief 4 % External Patch Place 1 Patch topically on the skin daily. 10/01/19 23 Active Omeprazole 20 MG Oral Capsule Delayed Release (PriLOSEC) Take 1 Capsule by mouth in the morning. 09/23/19 23 Active Acetaminophen ER 650 MG Oral Tablet Extended Release Take 1 Tablet by mouth every 4 hours as needed. Active Fleet Enema 7-19 GM/118ML Rectal Enema Administer 1 Enema into the rectum once. Active Stomahesive Protective Powder Use as directed. Active Nitroglycerin 0.3 MG Sublingual Tablet Sublingual (Nitrostat) Dissolve 1 tablet under the tongue once if needed for esophageal spasm Active [employer] Nasal Mist 0.9 % Nasal Aerosol Solution (Saline) Administer into nostril. Active Premarin 0.625 MG/GM Vaginal Cream 07/15/20 23 Active buPROPion HCl ER (SR) 150 MG Oral Tablet Extended Release 12 Hour (Wellbutrin SR) Take 1 Tablet by mouth every morning. 02/24/20 24 Active BD AutoShield Duo 30G X 5 MM 02/08/20 24 Active Mirtazapine 15 MG Oral Tablet (Remeron) 01/19/20 24 Active traMADol HCl 50 MG Oral Tablet (Ultram) 03/02/20 24 Active Calamine-Zinc Oxide 8-8 % External Lotion Apply topically to affected area. Apply to right lower buttocks Active rifAXIMin 550 MG Oral Tablet (Xifaxan) Take 1 Tablet by mouth in the morning and 1 Tablet before bedtime. Active Zinc Oxide 40 % External Ointment (Desitin/Evon ) Apply topically to affected area as needed for Dry Skin. Apply to Labia Active Spironolactone 25 MG Oral Tablet (Aldactone) 1 tablet on Thu and 08/18/19 25 Active Torsemide 20 MG Oral Tablet (Demadex) Take 1 tablet 6 days per week (hold on Thursday) 08/18/19 25 Active Nadolol 20 MG Oral Tablet (Corgard) Take 0.5 Tablets by mouth in the morning and 0.5 Tablets before bedtime. Hold if systolic BP is < 100 or pulse is < 60. 08/18/19 25 Active Lactulose 10 GM/15ML Oral Solution (Constulose) Take 45 mL by mouth in the morning and 45 mL at noon and 45 mL before bedtime. 240 mL 3 08/30/19 25 Active documented as of this encounter (statuses as of 09/09/2024) Active Problems Problem Noted Date Diagnosed Date Constipation 05/21/2022 Assessment & Plan (05/21/2022 4:37 PM EDT): Passing gas today, no distress. No BM since last Thur. Advised to use glycerin supp tonight. She did not feel she could administer enema herself. Hypoactive bowel sounds. She took dose MOM as advised by pcp prior to visit. If no BM by tomorrow will need abd xray and possibly enema. Once bowels moving, need to consider colace BID and possibly senna or miralax daily for regular BM Nurse to see pt tomorrow and follow up. Hypertensive heart and kidne y disease with chronic diastolic congestive heart failure and stage 3a chronic kidney disease 05/21/2022 Assessment & Plan (05/21/2022 4:40 PM EDT): Current Status: "Stable" for patient / At or near baseline Degree of Condition Awareness: Demonstrates very good awareness of condition, disease course, and prognosis "RED FLAG" HF Symptoms: o NO IDENTIFIED SYMPTOMS Current Heart Failure Classifications: o With less than ordinary activity ([employer] [place] [employer] CLASS III) Diagnostic Review: Recent Labs Units 05/07/22 1414 02/27/22 1407 02/18/22 1131 10/29/21 1256 07/24/21 1527 LEFT VENTRICULAR EJECTION FRACTION % -- -- 60 -- -- BNP (NT-PRO-BNP) - [facility] pg/mL -- -- -- -- 142 ESTIMATED GLOMERULAR FILTRATION RATE - [facility] mL/min 48* < > -- < > 85 HGB - [facility] g/dL 14.7 < > -- < > 11.9* < > = values in this interval not displayed. Medication Regimen: o Beta Joaquin Therapy: Other: nadolol o NOELLE Inhibitor/ARB Therapy: Lisinopril o Diuretic therapy: Torsemide Aldactone Self - Management Plan o Avoid excessive fluid intake and avoid salty, processed food o Weigh daily Exacerbation Plan o CMP o Pro-BNP Diuretics reduced on recent inpatient stay d/t concern dehydration. BMP to be completed this week. Mild episode of recurrent major depressive disor shwetha 05/09/2022 Thyroid nodule 05/09/2022 History of epistaxis 07/31/2020 Chronic right-sided heart failure 06/27/2020 Assessment & Plan (10/16/2021 12:04 PM EDT): [facility] Call: Not taking diuretics 2/2 combination of bed bugs in home and not wanting to be incontinent. Unfortunately, if she's not willing to take the only medication that can help manage her weights, I'm not sure if there's more advise to give. I would recommend maybe trying 1/2 her baseline dose so that her volume status is being managed even just a littlebetter 10/16/2021 Frequent nosebleeds 03/28/2020 Esophageal spasm 03/28/2020 Nocturnal hypoxemia 12/28/2019 HTN, goal below 140/90 09/08/2019 Assessment & Plan (05/09/2022 7:22 AM EDT): BP at goal -continue above regimen Atherosclerotic heart diseas e of [place] coronary artery without angina pectoris 09/08/2019 Assessment & Plan (05/09/2022 7:20 AM EDT): No angina -continue Crestor, corgard, lisinopril, zetia, prn nitro Thrombocytopenia 07/22/2019 Type 2 diabetes mellitus wit h mild nonproliferative diabetic retinopathy without macular edema, bilateral 07/22/2019 Major depressive disorder, recurrent, unspecifie d 05/10/2019 Assessment & Plan (05/09/2022 7:26 AM EDT): Slightly depressed d/t not feeling well -continue zoloft for now Morbid obesity with BMI of 45.0-49.9, adult 01/2018 land classifier (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 -currently on torsemide 100 mg daily, metolazone, 5 mg m, w, f, and spironolactone 100 mg daily -pending blood work. May hold Thursday's dose of metolazone. Assessment & Plan (10/22/2021 8:32 AM EDT): Weight gain in symptoms after patient has been out diuretics since 10/15. Is able to picker packer new medication today. Usually takes metolazone on Thursday, Thursday, and Thursday. -restart usual dose of torsemide 40 mg in the a.m. and 20 mg in p.m. -take metolazone 5 mg 30-60 minutes prior to next dose of torsemide -recommendations for metolazone tomorrow will depend on weight and symptoms. If asymptomatic and weight back to baseline, would have her skip the usual dose tomorrow and restart on her usual schedule on Thursday. -patient needs updated labs, ordered Portal hypertensive gastropathy 02/05/2017 Liver cirrhosis secondary to SMALL 07/25/2016 Mixed stress and urge urinary incontinence 07/02 Type 2 diabetes mellitus wit h hemoglobin A1c goal of less than 8.5% 04/10/2014 Overview (11/20/2015): ICD-10 update of inactive term Assessment & Plan (05/21/2022 4:29 PM EDT): Current Status: Slow or gradual progression Degree of Condition Awareness: Demonstrates very good awareness of condition, disease course, and prognosis "RED FLAG" Diabetic symptoms: o none Goal HgbA1c o Other: <8.5 Diabetic Complications o GI (example: gastroparesis) Medication Regimen o Bolus/Short Acting Insulin o GLP-1 Agonist (ex: Victoza, Trulicity, Ozempic) DM Secondary Prevention o NOELLE Inhibitor / ARB o Moderate-High Intensity Statin Followed closely by MTM Assessment & Plan (05/09/2022 7:25 AM EDT): Last hgba1c 8.6 on 01/21/22. BS have been high. -continue current regimen: trulicity 4.5 mg weekly. Will make adjustments pending blood work. Chronic constipation 11/01/2012 Assessment & Plan (05/09/2022 7:26 AM EDT): May be worse due to dehydration Continue miralax -add stool softener -KUB Deviated nasal septum 03/05/2011 Hypertrophy of nasal turbinates 03/05/2011 Chronic rhinitis 03/05/2011 Other chronic sinusitis 03/05/2011 Temporomandibular joint disorder 03/05/2011 GARRETT (obstructive sleep apnea) 01/17/2011 Overview (04/12/2013): 04/12/13 -- CPAP 7 cwp 01/13/13 PSG -- RDI 5.3 AHP - [place] Gastroesophageal reflux disease without esophagi tis 11/22/2010 Assessment & Plan (05/09/2022 7:26 AM EDT): Sx controlled with ompeprazole DYSLIPIDEMIA, GOAL LDL BELOW 100 06/26/2009 Overview (06/26/2009): Per Lipid Taxonomy. DM gastroparesis IBS (irritable bowel syndrome) documented as of this encounter (statuses as of 09/09/2024) Resolved Problems Problem Noted Date Diagnosed Date Resolved Date Depression 06/17/2018 01/12/2020 Overview (01/12/2020): unspec Cluster B personality disorder 06/17/2018 09/15/2018 Type 2 diabetes mellitus wit h hyperglycemia, with long-term current use of insulin 05/21/2018 Hemorrhoids, external without complications 03/26/2018 10/28/2018 Overview (03/26/2018): Seen on colonoscopy in 2013 Polypharmacy 03/26/2018 01/25/2020 Syncope and collapse 03/26/2018 019 Muscle spasm of back 03/26/2018 019 Body mass index (BMI) of 40. 0 to 44.9 in adult 09/29/2017 02/18/2018 Overview: Per Obesity protocol #1 Body mass index (BMI) of 45. 0 to 49.9 in adult 04/20/2017 10/02/2017 Overview: Per Obesity protocol #1 Suture reaction 04/13/2017 04/13/2017 Other secondary pulmonary hypertension 02/05/2017 05/09/2022 Type 2 diabetes mellitus with hyperglycemia 02/05/2017 03/26/2018 Fatty liver 12/13/2015 03/26/2018 Vitamin D deficiency 08/15/2013 018 DDD (degenerative disc disease), thoracic 06/03/2013 07/02/2015 DDD (degenerative disc disease), cervical 06/03/2013 07/02/2015 Diabetes type 2, uncontrolled 05/19/2013 08/04/2017 Crohn's disease 12/14/2012 02/12/2015 Encounter for examination fo r normal comparison and control in clinical research program 07/09/2012 12/21/2012 Overview (11/05/2020): Diagnosis changed due to Research Module. Go to Snapshot for study details. Organic sleep disorder 03/28/201108/04 Dysphagia 11/22/2010 01/17/2019 Overview (10/11/2015): ICD-10 update of inactive term Obesity, morbid (more than 1 00 lbs over ideal weight or BMI > 40) 01/01/2010 04/29/2014 Overview (10/08/2015): Per Obesity Protocol, #19 ICD-10 update of inactive term Benign neoplasm of colon 09/17/200901/2018 Overview (10/09/2009): sellile serrated adenoma, [facility], f/u in colonoscopy in 5 yrs Type 2 diabetes mellitus wit h hemoglobin A1c goal of less than 7.0% 05/03/2009 04/10/2014 Overview (11/13/2015): Modified per Diabetes protocol #14. ICD-10 update of inactive term Depression with anxiety 05/25/200805/21 DM type 2, not at goal 01/29/200805/03 Overview (05/03/2009): Modified per Diabetes protocol #14. Mixed dyslipidemia 08/23/2007 9 Overview (06/26/2009): Per Lipid Taxonomy. ADVANCE DIRECTIVE INFORMATION 09/30/2005 05/23/2024 Overview (09/30/2005): No, Advance Directive brochure given to patient. Chronic diarrhea 09/11/2004 02/12/2015 Incontinence of feces 09/11/20042017 Overview (10/23/2015): ICD-10 update of inactive term H. pylori infection 04/29/20 14 BMI 40.0-44.9, adult 016 documented as of this encounter (statuses as of 09/09/2024) Immunizations Name Administration Dates Next Due COVID-19 Whole Virus, Quispe Vac, 2-Dose Series ([employer] 09/03/2020,08/03/2020 COVID-19 mRNA, LNP-s, No Pre serve, 2-Dose Series ([employer]) 09/02/2020,08/12/2020 HEP A - Hepatitis A (Adult > 18 yrs) 09/18/2017, 04/06/2017 Hepatitis B, 20+ yrs 09/18/2017,05/11/2017,04/06 PPD 07/01/2005 Pneumococcal Polysaccharide PPV23 (Pneumovax) 05/27/2006 Seasonal Influenza Vac., MDV , IM, 0.5 mL (Fluzone) 04/29/2014,05/04/2013,05/19/2012,04/23,05/10/2010,08/07/2009,05/25/2008 ,05/20/2007,09/01/2006,05/27/2006 Seasonal Influenza, PF, 6 M & above, IM , (FluLaval or Fluzone) 04/18/2020,04/18/2019,04/27/2018 Seasonal Influenza, Quadriva lent Hd (Fluzone Hd) 05/24/2021 Seasonal Influenza, Quadriva lent Hd, 65+ Yrs 04/10/2020 Seasonal Influenza, Quadriva lent, No Preserve, IM 04/08/2017,04/18/2016,06/11/2015 TDAP, Age 7 and older, IM (Adacel) 04/14/2011, documented as of this encounter Social History Tobacco Use Types Packs/Day Years Used Date Smoking Tobacco: Never Smokeless Tobacco: Never Alcohol Use Standard Drinks/Week Comments No 0 (1 standard drink = 0.6 oz pur e alcohol) Humiliation, Afraid, Rape, and Kick questionnair e Answer Date Recorded Within the last year, have y ou been afraid of your partner or ex-partner? No 06/01/2020 Within the last year, have y ou been humiliated or emotionally abused in other ways by your partner or ex-partner? No Within the last year, have y ou been kicked, hit, slapped, or otherwise physically hurt by your partner or ex-partner? No 06/01/2020 Within the last year, have y ou been raped or forced to have any kind of sexual activity by your partner or ex-partner? No 06/01/2020 Social Connection and Isolat ion Panel [NHANES] Answer Date Recorded In a typical week, how many times do you talk on the phone with family, friends, or neighbors? More than three times a week 06/01/2020 How often do you get togethe r with friends or relatives? More than three times a week 06/01/2020 How often do you attend chur ch or christian services? More than 4 times per year 06/01/2020 Do you belong to any clubs o r organizations such as yazidi groups, unions, fraternal or athletic groups, or school groups? No 06/01/2020 How often do you attend meet ings of the clubs or organizations you belong to? Never 06/01/2020 Are you , , di vorced, , never , or living with a partner? 06/01/2020 Overall Financial Resource Strain (CARDIA) Answe r Date Recorded How hard is it for you to pa y for the very basics like food, housing, medical care, and heating? Not hard at all 06/01/2020 PHQ-2 Answer Date Recorded PHQ-2 Score 0 03/08/2019 [facility] - Occupational Stress Questionnaire Answer Date Recorded Do you feel stress - tense, restless, nervous, or anxious, or unable to sleep at night because your mind is troubled all the time - these days? Only a little 06/01/2020 Exercise Vital Sign Answer Date Recorde d On average, how many days pe r week do you engage in moderate to strenuous exercise (like a brisk walk)? 7 days 06/01/2020 On average, how many minutes do you engage in exercise at this level? 60 min 06/01/2020 Hunger Vital Sign Answer Date Recorded Worried About Running Out of Food in the Last Ye ar Never true 05/10/2019 Ran Out of Food in the Last Year Never true 05/10/2019 PRAPARE - Transportation Answer Date Re corded In the past 12 months, has l ack of transportation kept you from medical appointments or from getting medications? No 05/20 In the past 12 months, has l ack of transportation kept you from meetings, work, or from getting things needed for daily living? No 06/01/2020 Housing Stability Vital Sign Answer Amos e Recorded In the last 12 months, was t here a time when you were not able to pay the mortgage or rent on time? No 06/01/2020 In the last 12 months, how many places have you lived? 1 06/01/2020 In the last 12 months, was t here a time when you did not have a steady place to sleep or slept in a correction (including now)? No 06/01/2020 Comments No Sex and Gender Information Value Date Recorded Sex Assigned at Not on file Legal Sex Female 5:27 AM EST Gender Identity Not on file Sexual Orientation Not on file Occupation Industry Job Start Date Job End Date Unemployed Not on file Not on file Not on file documented as of this encounter Functional Status * Does this person have serious difficulty walking or climbing stairs? Answer Date of Assessment Author Yes 06/01/2020 11:39 AM EST documented as of this encounter Miscellaneous Notes * Telephone Encounter - Sandra Chávez OSA - 09/09/2024 1:46 PM EST Received email from Noel Fleming, the pt can not go to [facility], they do not accept [facility] insurance there. GARRETT Bryan 09/09/2024 1:47 PM * Telephone Encounter - Claudia Tomas CMA - 09/08/2024 8:02 AM EST Emailed order to Noel Delgado to attempt auth for outside facility [facility] MRI * Telephone Encounter - Sandra Chávez OSA - 09/07/2024 4:23 PM EST Open MRI's are only done at [facility] in [place]. Will get prior auth first then fax to them GARRETT Bryan 09/07/2024 4:24 PM * Addendum Note - Sandhya Voss CRNP - 09/07/2024 1:40 PM ESTAddended by: SANDHYA VOSS on: 09/07/2024 01:40 PM Modules accepted: Orders * Addendum Note - Sandhya Voss CRNP - 09/07/2024 12:30 PM ESTAddended by: SANDHYA VOSS on: 09/07/2024 12:30 PM Modules accepted: Orders * Telephone Encounter - Sandhya Voss CRNP - 09/07/2024 12:30 PM EST MRI ordered [facility] * Telephone Encounter - Christy Gonzalez LPN - 09/07/2024 12:00 PM EST Spoke to Nursing Bailiff for [facility]. [facility] is agreeable to the MRI as long it's in the Open MRI. Please order. Schedulers: Please call [phone], ext [phone] to schedule Open MRI * Telephone Encounter - Claudia Tomas CMA - 09/07/2024 11:22 AM EST Spoke with RN marina sales and service supervisor Marcia. She is going to check with pt about having MRI and call back to the clinic. * Telephone Encounter - Sandhya Voss CRNP - 09/07/2024 11:01 AM EST Nurses, please call patient to review the information below. I am agreeable to order MRI liver if patient is agreeable as well. Please let me know [facility] * Telephone Encounter - Keshia Terrazas RT (R) - 09/07/2024 10:51 AM EST Pt's labs are not good enough to use IV contrast for CT Scan. Radiologist is recommending an MRI ofthe Liver be ordered. Pt is scheduled TOMORROW (09/08) for CT. Is your office able to touch base with pt and get MRI if pt is agreeable and able to get an MRI. ORwe wait until labs are better and then do the CT Scan. Keshia Breen documented in this encounter Plan of Treatment Upcoming Encounters Date Type Department Care Team (Late st Contact Info) Description 11/03/2024 11:00 AM EDT Office Visit Ophthalmology, [facility] [address] [place] [id number] Henri Beauchamp DO [address] [place] [address] 12/07/2024 12:00 PM EDT [facility] [place] [address] Sandhya Voss CRNP [address] [place] [address] 12/22/2024 10:00 AM EDT [facility] [address] [facility] [place] [phone] Corinne Carlin CRNP [address] [place] [address] 03/30/2025 3:30 PM EDT Office Visit Cardiology [address] [place] [address] Adrianna Huffman, [place] [address] [place] [address] Scheduled Orders Name Type Priority Associated Diagnoses Orde r Schedule MRI LIVER W WO CONTRAST Medical Imaging Routine Hepatic cirrhosis, unspecified hepatic cirrhosis type, unspecified whether ascites present (HCC) Ordered: 09/07/2024 Scheduled Procedures Name Priority Associated Diagnoses Date/Ti me COLONOSCOPY FLEXIBLE PROXIMA L DIAGNOSTIC Recall History of colonic polyps Health Maintenance Due Date Last Done Comments CKD PHOS USE SMARTSET 49977 1973 Cologuard 2000 Fecal Occult Blood Test 2000 Sigmoidoscopy 2000 Depression Monitoring 03/08/2020 03/08/2019 Diabetic Foot Exam 01/18/2021 01/19/2020, 0 03/08/2019, 02/18/2018, Additional history exists DTap/Tdap Vaccines (3 - Td or Tdap) 04/14/2021 04/14/2011, 07/16/2007 Zoster Vaccines (2 of 2) 02/05/2022 12/11/2021 Mammogram 02/26/2022 02/26/2021, 01/18, 02/12/2018, Additional history exists Albumin/Creatinine Ratio 01/21/2023 022, 02/18/2018, 02/05/2017, Additional history exists HbA1c 01/21/2023 07/24/2022, 070 11/2021, 05/24/2021, Additional history exists COVID-19 Vaccine ( season) 2024 09/03/2020, 09/02/2020, 08/12/2020, Additional history exists Influenza Vaccine (FLU shot) (#1) 2024 05/06/2023, 05/24/2021, 04/18/2020, Additional history exists B-12 12/22/2024 12/23/2023, 12/0 11/2022, 01/21/2022, Additional history exists GFR 03/05/2025 09/05/2024, 08/20, 08/22/2024, Additional history exists Pneumococcal Vaccine: 50+ Years (3 of 3 - PCV20 or PCV21) 05/23/2025 05/23/2020, 05/27/2006 Diabetic Eye Exam 06/30/2025 06/30/2024, , 06/30/2024, Additional history exists CKD HGB USE SMARTSET 32108 09/05/202509/05, 08/29/2024, 08/22/2024, Additional history exists Colonoscopy 07/10/2028 07/10/2023, 04/0 07/2018, 07/21/2013, Additional history exists Colorectal Cancer Screening 07/10/2028 Hepatitis B Vaccine Completed 09/18/2017, 05/11/2017, 04/06/2017 HPV (Gardasil) Vaccine Aged Out No lo nger eligible based on patient's age to complete this topic MENINGOCOCCAL (MENACTRA/MENVEO) Aged Out No longer eligible based on patient's age to complete this topic Meningitis B Vaccine (Bexsero/Trumemba) Aged Out No longer eligible based on patient's age to complete this topic documented as of this encounter Medical Devices Not on filedocumented as of this encounter Visit Diagnoses Diagnosis Chronic right-sided heart failure (HCC)- Primary Congestive heart failure, unspecified Chronic diastolic heart failure (HCC)- Primary Chronic diastolic heart failure Generalized weakness- Primary Other malaise and fatigue Constipation, unspecified constipation type Mild episode of recurrent major depressive disorder (HCC) Morbid obesity with BMI of 45.0-49.9, adult (HCC) Morbid obesity Thyroid nodule Nontoxic uninodular goiter Thrombocytopenia (HCC) Thrombocytopenia, unspecified Atherosclerosis of [place] coronary artery without angina pectoris, unspecified whether [place] or transplanted heart Chronic diastolic heart failure (HCC) Chronic diastolic heart failure Essential (primary) hypertension Unspecified essential hypertension Type 2 diabetes mellitus with hemoglobin A1c goal of less than 8.5% (HCC) Chronic constipation Unspecified constipation Gastroesophageal reflux disease without esophagitis Esophageal reflux Advanced care planning/counseling discussion Other specified counseling Type 2 diabetes mellitus with hemoglobin A1c goal of less than 8.5% (HCC)- Primary Foul smelling urine Other nonspecific finding on examination of urine Chronic right-sided heart failure (HCC) Congestive heart failure, unspecified Constipation, unspecified constipation type DM gastroparesis (HCC) Type II or unspecified type diabetes mellitus with neurological manifestations, not stated as uncontrolled Liver cirrhosis secondary to SMALL (HCC) Other chronic nonalcoholic liver disease Portal hypertensive gastropathy (HCC) Other specified disorder of stomach and duodenum Hypertensive heart and kidney disease with chronic diastolic congestive heart failure and stage 3a chronic kidney disease (HCC) Morbid obesity with BMI of 45.0-49.9, adult (HCC) Morbid obesity Hepatic cirrhosis, unspecified hepatic cirrhosis type, unspecified whether ascites present (HCC)- Primary documented in this encounter Care Teams Railroad Yard Worker Relationship Specialty Start Date End Date Oxana Willams MD [address] [place] [address] [place] [address] PCP - General Internal Medicine 08/17/23 documented as of this encounter
--- OUTSIDE RECORDS SUMMARY | 2024-09-29 03:33 | External Medical Summary | Summary of Care ---
Author Name Unknown Organization [facility] Address [address] [facility] [address] Phone [phone] Care Team Providers Care Sheeter Waxer Operator Name Role Phone Oxana Willams MD Primary Care Provider [phone] Reason for Visit * Reason Onset Date Comments Information 09/07/2024 Labs not good en ough to use IV contrast for CT Scan. Encounter Details Date Type Department Care Team (Late st Contact Info) Description 09/07/[address] [facility] 1st [facility] [address] [place] [phone] Keshia Terrazas N, RT (R) Information [...] as of this encounter (statuses as of 09/12/2024) Medications DIURETIC TITRATION PLANIndications:Aquiles ambriz diastolic congestive heart failure (HCC) If no improvement on day 3, contact heart failure managing provider or [facility] protective services case worker 1 Each 01/19/20 19 Active Medical Compression [...] 3 12/03/19 22 Active OneTouch Delica Plus [id number] ns:Type 2 diabetes mellitus with hemoglobin A1c [...] as of this encounter (statuses as of 09/12/2024) Active Problems Problem Noted Date Diagnosed Date [...] Assessment & Plan (10/16/2021 12:04 PM EDT): [facility] Call: Not taking diuretics 2/2 combination of [...] above regimen Atherosclerotic heart diseas e of [place] coronary artery without angina pectoris 09/08/2019 Assessment [...] obesity with BMI of 45.0-49.9, adult 01/2018 terminal carman (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 Is able to molded goods spot picker new medication today. Usually takes metolazone on [...] 01/13/13 PSG -- RDI 5.3 [facility] - [place] Gastroesophageal reflux disease without esophagi tis 11/22/2010 Assessment & Plan (05/09/2022 7:26 AM EDT): Sx controlled with ompeprazole DYSLIPIDEMIA, GOAL LDL BELOW 100 06/26/2009 Overview (06/26/2009): Per Lipid Taxonomy. DM gastroparesis IBS (irritable bowel syndrome) documented as of this encounter (statuses as of 09/12/2024) Resolved Problems Problem Noted Date Diagnosed Date [...] as of this encounter (statuses as of 09/12/2024) Immunizations Name Administration Dates Next Due COVID-19 Whole Virus, Quispe Vac, 2-Dose Series ([employer]) 09/03/2020,08/03/2020 COVID-19 mRNA, LNP-s, No Pre serve, 2-Dose Series ([employer]) 09/02/2020,08/12/2020 HEP A - Hepatitis A (Adult [...] often do you attend chur ch or anabaptist services? More than 4 times per year 06/01/2020 Do you belong to any clubs o r organizations such as denominational groups, unions, fraternal or athletic groups, or [...] Answer Date Recorded PHQ-2 Score 0 03/08/2019 [facility] of Occupat ional Health - Occupational Stress [...] place to sleep or slept in a senior living (including now)? No 06/01/2020 Comments No Sex [...] encounter Miscellaneous Notes * Telephone Encounter - Claudia Tomas CMA - 09/12/2024 9:01 AM EST Spoke with MISAEL Kennedy. She is going to ask pt if she would be willing to go to [facility] for a regular MRI. Asking if she could go in feet first. Will call back with decision. If agreeable new order will needplaced. * Telephone Encounter - Sandra Chávez OSA - 09/09/2024 1:46 PM EST Received email from Noel Fleming, the pt can not go to [facility], they do not accept [facility] insurance there. GARRETT Bryan 09/09/2024 1:47 PM * Telephone Encounter - Claudia Tomas CMA - 09/08/2024 8:02 AM EST Emailed order to Noel Delgado to attempt auth for outside facility 611 MRI * Telephone Encounter - Sandra Chávez OSA - 09/07/2024 4:23 PM EST Open MRI's are only done at 1 in [place]. Will get prior auth first then fax [...] - 09/07/2024 12:30 PM EST MRI ordered MISAEL Strauss * Telephone Encounter - Christy Gonzalez LPN - 09/07/2024 12:00 PM EST Spoke to Nursing Coper Hand for [facility]. [facility] is agreeable to the MRI as long it's in the Open MRI. Please order. Schedulers: Please call [phone], ext [phone] to schedule Open MRI * Telephone Encounter - Claudia Tomas CMA - 09/07/2024 11:22 AM EST Spoke with RN sanitation supervisor Marcia. She is going to check [...] Liver be ordered. Pt is scheduled TOMORROW (Th 2/20) for CT. Is your office able to touch base with pt and get MRI if pt is agreeable and able to get an MRI. ORwe wait until labs are better and then do the CT Scan. Keshia Breen CT GW documented in this encounter Plan of Treatment Upcoming Encounters Date Type Department Care Team (Late st Contact Info) Description 11/03/2024 11:00 AM EDT Office Visit Ophthalmology, [facility] [address] [place] [address] Henri Beauchamp, [address] [place] [address] 12/07/2024 12:00 PM EDT Office Visit Gastroenterology, [facility] [address] [place] [address] Sandhya Voss CRNP [address] [place] [address] 12/22/2024 10:00 AM EDT Office Visit Sleep Disorders Ctr [facility] [address] [place] [phone] Corinne Carlin CRNP [address] [place] [address] 03/30/2025 3:30 PM EDT Office Visit Cardiology [address] [place] [address] Adrianna Huffman PA-C [address] [place] [address] Scheduled Orders Name Type Priority Associated Diagnoses Orde r Schedule MRI LIVER W WO CONTRAST Medical Imaging Routine Hepatic cirrhosis, unspecified hepatic cirrhosis type, unspecified whether ascites present (HCC) Ordered: 09/07/2024 Scheduled Procedures Name Priority Associated Diagnoses Date/Ti me COLONOSCOPY FLEXIBLE PROXIMA L DIAGNOSTIC Recall History of colonic polyps Health Maintenance Due Date Last Done Comments CKD PHOS USE SMARTSET 89725 1973 Cologuard 2000 Fecal Occult Blood Test 2000 Sigmoidoscopy 2000 Depression Monitoring 03/08/2020 03/08/2019 Diabetic Foot Exam 01/18/2021 01/19/2020, 0 03/08/2019, 02/18/2018, Additional history exists DTap/Tdap Vaccines (3 - Td or Tdap) 04/14/2021 04/14/2011, 07/16/2007 Zoster Vaccines (2 of 2) 02/05/2022 12/11/2021 Mammogram 02/26/2022 02/26/2021, 01/18, 02/12/2018, Additional history exists Albumin/Creatinine Ratio 01/21/2023 022, 02/18/2018, 02/05/2017, Additional history exists HbA1c 01/21/2023 07/24/2022, 07/0 11/2021, 05/24/2021, Additional history exists COVID-19 Vaccine ( season) 2024 09/03/2020, 09/02/2020, 08/12/2020, Additional history exists Influenza Vaccine (FLU shot) (#1) 2024 05/06/2023, 05/24/2021, 04/18/2020, Additional history exists B-12 12/22/2024 12/23/2023, 12/0 11/2022, 01/21/2022, Additional history exists GFR 03/12/2025 09/12/2024, 08/20, 08/29/2024, Additional history exists Pneumococcal Vaccine: 50+ Years (3 of 3 - PCV20 or PCV21) 05/23/2025 05/23/2020, 05/27/2006 Diabetic Eye Exam 06/30/2025 06/30/2024, , 06/30/2024, Additional history exists CKD HGB USE SMARTSET 60235 09/12/202509/12, 09/05/2024, 08/29/2024, Additional history exists Colonoscopy 07/10/2028 07/10/2023, 04/0 [...] goiter Thrombocytopenia (HCC) Thrombocytopenia, unspecified Atherosclerosis of [place] coronary artery without angina pectoris, unspecified whether [place] or transplanted heart Chronic diastolic heart failure [...] Primary documented in this encounter Care Teams Sheeter Waxer Operator Relationship Specialty Start Date End Date Oxana Willams MD [address] [place] [address] [place] [address] PCP - General Internal Medicine 08/17/23 documented as of this encounter
--- OUTSIDE RECORDS SUMMARY | 2024-09-29 03:33 | External Medical Summary ---
Author Name Unknown Address Unknown Organization K09:[facility] [address] [place] [address] Laboratory Report Ordering Provider Test Date Status MONICA FERNANDES 09/26/2024 05:30:00 Final Observation Date Value Abnormality Reference (Units ) Status BUN 09/26/2024 05:30:00 42 Above high normal 6-20 (mg/dL) Final Creatinine 09/26/2024 05:30:00 2.2 Above high normal 0.5-1.0 (mg/dL) Final Glomerular filtration rate/1.73 sq M.predicted [Volume Rate/Area] in Serum, Plasma or Blood by Creatinine-based formula (CKD-EPI) 09/26/2024 05:30:00 24 Below low normal >=60 (mL/min) Final eGFR is calculated based on the CKD-EPI 2020 equation. Sodium 09/26/2024 05:30:00 134 Below low normal 135 -146 (mmol/L) Final Potassium 09/26/2024 05:30:00 4.4 3.5-5.1 (m mol/L) Final Cl 09/26/2024 05:30:00 100 98-107 (mm ol/L) Final CO2 09/26/2024 05:30:00 27 22-32 (mmo l/L) Final Anion gap 09/26/2024 05:30:00 7 7-15 (mmol /L) Final Glucose 09/26/2024 05:30:00 175 Above high normal 70 -120 (mg/dL) Final Albumin 09/26/2024 05:30:00 1.9 Below low normal 3.8 -5.0 (g/dL) Final Results rechecked. AST (Aspartate aminotransferase) 09/26/2024 05:30:00 49 Above high normal 10-35 (U/L) Final Alk Phos 09/26/2024 05:30:00 145 Above hi gh normal 35-130 (U/L) Final Bilirubin, Total 09/26/2024 05:30:00 1.4 Abov e high normal <=1.2 (mg/dL) Final Calcium 09/26/2024 05:30:00 8.4 8.4-1 0.2 (mg/dL) Final Protein 09/26/2024 05:30:00 5.4 Below lo w normal 6.0-8.3 (g/dL) Final ALT (Alanine aminotransferase) 09/26/2024 05:30:00 20 10-35 (U/L) Foster mayo Performing Location [facility] [address] [place] [address]
--- OUTSIDE RECORDS SUMMARY | 2024-09-29 03:33 | External Medical Summary | Summary of Care ---
Author Name Unknown Organization [facility] Address [address] [place] [address] Phone [phone] Care Team Providers Care Turret Punch Press Operator Name Role Phone Oxana Willams MD Primary Care Provider [phone] Encounter Details Date Type Department Care Team (Late st Contact Info) Description 09/12/2024 Orders Only Lab Mobile Phlebotomy [facility] [address] [place] [address] Gilberto Hart MD [address] [place] [address] [place] [address] Dyslipidemia, goal LDL below 160*; DM type 2, not at goal ([facility]); Steatohepatitis, non-alcoholic; ARF (acute renal failure) ([facility]) Allergies Active Allergy Reactions Criticality Noted Date [...] 3, contact heart failure managing provider or [facility] at home shoe parts caser 1 Each 01/19/20 19 Active Medical Compression [...] 3 12/03/19 22 Active OneTouch Delica Plus [id number] ns:Type 2 diabetes mellitus with hemoglobin A1c [...] < 100 or pulse is < 60. 01/30/20 25 Active Lactulose 10 GM/15ML Oral Solution [...] Assessment & Plan (10/16/2021 12:04 PM EDT): [facility] Call: Not taking diuretics 2/2 [...] above regimen Atherosclerotic heart diseas e of [place] coronary artery without angina pectoris 09/08/2019 Assessment [...] obesity with BMI of 45.0-49.9, adult 01/2018 [facility] (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 Is able to continuous pickling line pickler helper new medication today. Usually takes metolazone on [...] 7 cwp 01/13/13 PSG -- RDI 5.3 P - [place] Gastroesophageal reflux disease without esophagi tis 11/22/2010 [...] 10/28/2018 Overview (03/26/2018): Seen on colonoscopy in 2014 Polypharmacy 03/26/2018 01/25/2020 Syncope and collapse 03/26/2018 [...] per Diabetes protocol #14. Mixed dyslipidemia 08/23/2007 Overview (06/26/2009): Per Lipid Taxonomy. ADVANCE DIRECTIVE [...] COVID-19 Whole Virus, Quispe Vac, 2-Dose Series ([employer]) 09/03/2020,08/03/2020 COVID-19 mRNA, LNP-s, No Pre serve, 2-Dose Series ([employer]) 09/02/2020,08/12/2020 HEP A - Hepatitis A (Adult > 18 yrs) 09/18/2017, 04/06/2017 Hepatitis B, 20+ yrs 09/18/2017,05/11/2017,04/06 Pneumococcal Polysaccharide PPV23 (Pneumovax) 05/27/2006 Seasonal Influenza [...] often do you attend chur ch or muslim services? More than 4 times per year 06/01/2020 Do you belong to any clubs o r organizations such as restorationist groups, unions, fraternal or athletic groups, or [...] Answer Date Recorded PHQ-2 Score 0 03/08/2019 [facility] [place] of Occupat ional Health - Occupational Stress [...] No 06/01/2020 Housing Stability Vital Sign Answer Aoms e Recorded In the last 12 months, [...] place to sleep or slept in a alf (including now)? No 06/01/2020 Comments No Sex [...] AM EST documented as of this encounter Plan of Treatment Upcoming Encounters Date Type Department Care Team (Late st Contact Info) Description 09/12/2024 5:20 AM EST Laboratory Lab Mobile Phlebotomy [facility] [address] [facility] [place] [address] [facility] 100 [facility] [place] [address] Arrived 11/03/2024 11:00 AM EDT Office Visit Ophthalmology, [facility] [address] [place] [address] Henri Beauchamp DO [address] [place] [address] 12/07/2024 12:00 PM EDT Office Visit Gastroenterology, [facility] [address] [place] [address] Sandhya Blair CRNP [address] [place] [address] 12/22/2024 10:00 AM EDT Office Visit Sleep Disorders Ctr [facility] [address] [place] [phone] Corinne Carlin CRNP [address] [place] [address] 03/30/2025 3:30 PM EDT Office Visit Cardiology [address] [place] [address] Adrianna Huffman PA-C [address] [place] [address] Scheduled Orders Name Type Priority Associated Diagnoses Orde r Schedule CBC Lab Routine Dyslipidemia, goal LDL below 160 DM type 2, not at goal (HCC) Steatohepatitis, non-alcoholic ARF (acute renal failure) (HCC) Expected: 09/12/2024, Expires: 09/12/2025 COMPREHENSIVE METABOLIC PANEL Lab Routine Dyslipidemia, goal LDL below 160 DM type 2, not at goal (HCC) Steatohepatitis, non-alcoholic ARF (acute renal failure) (HCC) Expected: 09/12/2024, Expires: 09/12/2025 AMMONIA Lab Routine Dyslipidemia, goal LDL below 160 DM type 2, not at goal (HCC) Steatohepatitis, non-alcoholic ARF (acute renal failure) (HCC) Expected: 09/12/2024, Expires: 09/12/2025 Scheduled Procedures Name Priority Associated Diagnoses Date/Ti me COLONOSCOPY FLEXIBLE PROXIMA L DIAGNOSTIC Recall History of colonic polyps Health Maintenance Due Date Last Done Comments CKD PHOS USE SMARTSET 21222 1973 Cologuard 2000 Fecal Occult Blood Test [...] Additional history exists CKD HGB USE SMARTSET 53978 09/05/202509/05, 08/29/2024, 08/22/2024, Additional history exists Colonoscopy [...] goiter Thrombocytopenia (HCC) Thrombocytopenia, unspecified Atherosclerosis of [place] coronary artery without angina pectoris, unspecified whether [place] or transplanted heart Chronic diastolic heart failure [...] BMI of 45.0-49.9, adult (HCC) Morbid obesity Dyslipidemia, goal LDL below 160- Primary Other and unspecified hyperlipidemia DM type 2, not at goal (HCC) Type II or unspecified type diabetes mellitus without mention of complication, not stated as uncontrolled Steatohepatitis, non-alcoholic Other chronic nonalcoholic liver disease ARF (acute renal failure) (HCC) Acute kidney failure, unspecified documented in this encounter Care Teams Turret Punch Press Operator Relationship Specialty Start Date End Date Oxana Willams MD [address] [place] [address] [place] [address] PCP - General Internal Medicine 08/17/23 documented as of this encounter
--- OUTSIDE RECORDS SUMMARY | 2024-09-29 03:33 | External Medical Summary | Summary of Care ---
Author Name Unknown Organization [facility] Address [address] [place] [address] Phone [phone] Care Team Providers Care Hog Raiser Name Role Phone Oxana Willams MD Primary Care Provider [phone] Encounter Details Date Type Department Care Team (Late st Contact Info) Description 09/19/2024 Orders Only Lab Mobile Phlebotomy [address] [place] [address] Oxana Willams MD [address] [place] [address] [place] [address] SMALL (nonalcoholic steatohepatitis)* Allergies Active Allergy Reactions Criticality Noted Date [...] as of this encounter (statuses as of 09/19/2024) Medications DIURETIC TITRATION PLANIndications:Aquiles ambriz diastolic congestive heart failure (HCC) If no improvement on day 3, contact heart failure managing provider or [facility] at home case monitor 1 Each 01/19/20 19 Active Medical Compression [...] 3 12/03/19 22 Active OneTouch Delica Plus [id number] ns:Type 2 diabetes mellitus with hemoglobin A1c [...] as of this encounter (statuses as of 09/19/2024) Active Problems Problem Noted Date Diagnosed Date [...] Assessment & Plan (10/16/2021 12:04 PM EDT): [facility] Call: Not taking diuretics 2/2 combination of [...] above regimen Atherosclerotic heart diseas e of [place] coronary artery without angina pectoris 09/08/2019 Assessment [...] obesity with BMI of 45.0-49.9, adult 01/2018 long term care social worker (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 Is able to mixing picker tender new medication today. Usually takes metolazone on [...] 01/13/13 PSG -- RDI 5.3 [facility] - [place] Gastroesophageal reflux disease without esophagi tis 11/22/2010 Assessment & Plan (05/09/2022 7:26 AM EDT): Sx controlled with ompeprazole DYSLIPIDEMIA, GOAL LDL BELOW 100 06/26/2009 Overview (06/26/2009): Per Lipid Taxonomy. DM gastroparesis IBS (irritable bowel syndrome) documented as of this encounter (statuses as of 09/19/2024) Resolved Problems Problem Noted Date Diagnosed Date [...] as of this encounter (statuses as of 09/19/2024) Immunizations Name Administration Dates Next Due COVID-19 Whole Virus, Quispe Vac, 2-Dose Series ([employer]) 09/03/2020,08/03/2020 COVID-19 mRNA, LNP-s, No Pre serve, 2-Dose Series ([employer]) 09/02/2020,08/12/2020 HEP A - Hepatitis A (Adult [...] often do you attend chur ch or mandaeism services? More than 4 times per year 06/01/2020 Do you belong to any clubs o r organizations such as anabaptist groups, unions, fraternal or athletic groups, or [...] Answer Date Recorded PHQ-2 Score 0 03/08/2019 [facility] [place] of Occupat ional Health - Occupational Stress [...] place to sleep or slept in a residential (including now)? No 06/01/2020 Comments No Sex [...] Care Team (Late st Contact Info) Description 09/19/2024 5:30 AM EST Laboratory Lab Mobile Phlebotomy [address] [place] [address] [place] [address] Arrived 11/03/2024 11:00 AM EDT Office Visit Ophthalmology, [facility] [address] [place] [address] Henri Beauchamp DO [address] [place] [address] 12/07/2024 12:00 PM EDT Office Visit Gastroenterology, [facility] [address] [place] [address] Sandhya Blair CRNP [address] [place] [address] 12/22/2024 10:00 AM EDT Office Visit Sleep Disorders Ctr [facility] [address] [place] [phone] Corinne Carlin CRNP [address] [place] [address] 03/30/2025 3:30 PM EDT Office Visit Cardiology [address] [place] [address] Adrianna Huffman PA-C [address] [place] [address] Scheduled Orders Name Type Priority Associated Diagnoses Orde r Schedule AMMONIA Lab Routine SMALL (nonalcoholic steatohepatitis) Expected: 09/19/2024, Expires: 09/19/2025 COMPREHENSIVE METABOLIC PANEL Lab Routine SMALL (nonalcoholic steatohepatitis) Expected: 09/19/2024, Expires: 09/19/2025 CBC Lab Routine SMALL (nonalcoholic steatohepatitis) Expected: 09/19/2024, Expires: 09/19/2025 Scheduled Procedures Name Priority Associated Diagnoses Date/Ti me COLONOSCOPY FLEXIBLE PROXIMA L DIAGNOSTIC Recall History of colonic polyps Health Maintenance Due Date Last Done Comments CKD PHOS USE SMARTSET 96526 1973 Cologuard 2000 Fecal Occult Blood Test [...] Additional history exists CKD HGB USE SMARTSET 30078 09/12/202509/12, 09/05/2024, 08/29/2024, Additional history exists Colonoscopy [...] goiter Thrombocytopenia (HCC) Thrombocytopenia, unspecified Atherosclerosis of [place] coronary artery without angina pectoris, unspecified whether [place] or transplanted heart Chronic diastolic heart failure [...] BMI of 45.0-49.9, adult (HCC) Morbid obesity SMALL (nonalcoholic steatohepatitis)- Primary Other chronic nonalcoholic liver disease documented in this encounter Care Teams Hog Raiser Relationship Specialty Start Date End Date Екатерина, Oxana Kyra, MD [address] [place] [address] [place] [id number] PCP - General Internal Medicine 08/17/23 documented as of this encounter
--- OUTSIDE RECORDS SUMMARY | 2024-09-29 03:33 | External Medical Summary ---
Author Name Unknown Address Unknown Organization K0G:[facility] [address] [place] [address] Laboratory Report Ordering Provider Test Date Status MONICA FERNANDES 09/19/2024 05:33:00 Final Observation Date Value Abnormality Reference (Units ) Status WBC, Total 09/19/2024 05:33:00 5.04 4.00-10.8 0 (K/uL) Final RBC 09/19/2024 05:33:00 3.44 3.85-5.15 (M/uL) Final Hemoglobin 09/19/2024 05:33:00 10.4 Below low normal 12 .0-15.3 (g/dL) Final HCT 09/19/2024 05:33:00 32.2 Below low normal 36. 0-45.2 (%) Final MCV 09/19/2024 05:33:00 93.6 81.5-97.5 (fL) Final MCH 09/19/2024 05:33:00 30.2 27.0-34.0 (pg) Final MCHC 09/19/2024 05:33:00 32.3 32.0-36.0 (g/dL) Final RDW 09/19/2024 05:33:00 14.3 11.5-15.5 (%) Final Platelets 09/19/2024 05:33:00 86 Below low normal 140 -400 (K/uL) Final MPV 09/19/2024 05:33:00 11.9 6.6-11.1 ( fL) Final Performing Location [facility] [address] [place] [address]
--- OUTSIDE RECORDS SUMMARY | 2024-09-29 03:33 | External Medical Summary ---
Author Name Unknown Address Unknown Organization K01:[facility] [address] [place] [address] Laboratory Report Ordering Provider Test Date Status PATT AUSTIN 09/12/2024 05:27:00 Final Observation Date Value Abnormality Reference (Units ) Status Ammonia 09/12/2024 05:27:00 100 Above upper panic limits 11-35 (umol/L) Final Performing Location [facility] - [address] [place] [address]
--- OUTSIDE RECORDS SUMMARY | 2024-09-29 03:33 | External Medical Summary ---
Author Name Unknown Address Unknown Organization K0G:[facility] [place] [address] [place] [address] Laboratory Report Ordering Provider Test Date Status PATT AUSTIN 09/12/2024 05:27:00 Final Observation Date Value Abnormality Reference (Units ) Status BUN 09/12/2024 05:27:00 33 Above high normal 6-20 (mg/dL) Final Creatinine 09/12/2024 05:27:00 2.2 Above high normal 0.5-1.0 (mg/dL) Final Glomerular filtration rate/1.73 sq M.predicted [Volume Rate/Area] in Serum, Plasma or Blood by Creatinine-based formula (CKD-EPI) 09/12/2024 05:27:00 23 Below low normal >=60 (mL/min) Final eGFR is calculated based on the CKD-EPI 2020 equation. Sodium 09/12/2024 05:27:00 140 135-146 (m mol/L) Final Potassium 09/12/2024 05:27:00 4.1 3.5-5.1 (m mol/L) Final Cl 09/12/2024 05:27:00 105 98-107 (mm ol/L) Final CO2 09/12/2024 05:27:00 29 22-32 (mmo l/L) Final Anion gap 09/12/2024 05:27:00 6 Below low normal 7-1 5 (mmol/L) Final Glucose 09/12/2024 05:27:00 176 Above high normal 70 -120 (mg/dL) Final Albumin 09/12/2024 05:27:00 2.5 Below low normal 3.8 -5.0 (g/dL) Final AST (Aspartate aminotransferase) 09/12/2024 05:27:00 50 Above high normal 10-35 (U/L) Final Alk Phos 09/12/2024 05:27:00 143 Above high normal 35 -130 (U/L) Final Bilirubin, Total 09/12/2024 05:27:00 0.7 <=1 .2 (mg/dL) Final Calcium 09/12/2024 05:27:00 8.7 8.4-10.2 ( mg/dL) Final Protein 09/12/2024 05:27:00 6.0 6.0-8.3 (g /dL) Final ALT (Alanine aminotransferase) 09/12/2024 05:27:00 29 10-35 (U/L) Foster mayo Performing Location [facility] [place] [address] [facility] [address]
--- OUTSIDE RECORDS SUMMARY | 2024-09-29 03:33 | External Medical Summary | Summary of Care ---
Author Name Unknown Organization [facility] Address [address] [place] [address] Phone [phone] Care Team Providers Care Wood Mill Supervisor Name Role Phone Oxana Willams MD Primary Care Provider [phone] Encounter Details Date Type Department Care Team (Late st Contact Info) Description 09/26/2024 Orders Only Lab Mobile Phlebotomy [address] [place] [address] Oxana Willams MD [address] [place] [address] [place] [address] CKD (chronic kidney disease), symptom management only* Allergies Active Allergy Reactions Criticality Noted Date [...] as of this encounter (statuses as of 09/26/2024) Medications DIURETIC TITRATION PLANIndications:Aquiles ambriz diastolic congestive heart failure (HCC) If no improvement on day 3, contact heart failure managing provider or Radha at home disease case manager 1 Each 01/19/20 19 Active [...] 3 12/03/19 22 Active OneTouch Delica Plus [id number] ns:Type 2 diabetes mellitus with hemoglobin A1c [...] as of this encounter (statuses as of 09/26/2024) Active Problems Problem Noted Date Diagnosed Date [...] Assessment & Plan (10/16/2021 12:04 PM EDT): [facility] Call: Not taking diuretics 2/2 combination of [...] above regimen Atherosclerotic heart diseas e of [place] coronary artery without angina pectoris 09/08/2019 Assessment [...] obesity with BMI of 45.0-49.9, adult 01/2018 skilled nursing (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 Is able to pick up operator new medication today. Usually takes metolazone on [...] 01/13/13 PSG -- RDI 5.3 [facility] - [place] Gastroesophageal reflux disease without esophagi tis 11/22/2010 Assessment & Plan (05/09/2022 7:26 AM EDT): Sx controlled with ompeprazole DYSLIPIDEMIA, GOAL LDL BELOW 100 06/26/2009 Overview (06/26/2009): Per Lipid Taxonomy. DM gastroparesis IBS (irritable bowel syndrome) documented as of this encounter (statuses as of 09/26/2024) Resolved Problems Problem Noted Date Diagnosed Date [...] as of this encounter (statuses as of 09/26/2024) Immunizations Name Administration Dates Next Due COVID-19 Whole Virus, Quispe Vac, 2-Dose Series ([employer]) 09/03/2020,08/03/2020 COVID-19 mRNA, LNP-s, No Pre serve, 2-Dose Series ([employer]) 09/02/2020,08/12/2020 HEP A - Hepatitis A (Adult [...] often do you attend chur ch or hindu services? More than 4 times per year 06/01/2020 Do you belong to any clubs o r organizations such as adventism groups, unions, fraternal or athletic groups, or [...] Answer Date Recorded PHQ-2 Score 0 03/08/2019 [facility] [place] of Occupat ional Health - Occupational Stress [...] place to sleep or slept in a fci (including now)? No 06/01/2020 Comments No Sex [...] Care Team (Late st Contact Info) Description 09/26/2024 5:00 AM EDT Laboratory Lab Mobile Phlebotomy [address] [place] [address] [place] [address] Arrived 11/03/2024 11:00 AM EDT Office Visit Ophthalmology, [facility] [address] [place] [address] Henri Beauchamp DO [address] [place] [address] 12/07/2024 12:00 PM EDT Office Visit Gastroenterology, [facility] [address] [place] [address] Sandhya Blair CRNP [address] [place] [address] 12/22/2024 10:00 AM EDT Office Visit Sleep Disorders Ctr [facility] [address] [place] [phone] Corinne Carlin CRNP [address] [place] [address] 03/30/2025 3:30 PM EDT Office Visit Cardiology [address] [place] [address] Adrianna Huffman PA-C [address] [place] [address] Scheduled Orders Name Type Priority Associated Diagnoses Orde r Schedule AMMONIA Lab Routine CKD (chronic kidney disease), symptom management only Expected: 09/26/2024, Expires: 09/26/2025 CBC Lab Routine CKD (chronic kidney disease), symptom management only Expected: 09/26/2024, Expires: 09/26/2025 COMPREHENSIVE METABOLIC PANEL Lab Routine CKD (chronic kidney disease), symptom management only Expected: 09/26/2024, Expires: 09/26/2025 Scheduled Procedures Name Priority Associated Diagnoses Date/Ti me COLONOSCOPY FLEXIBLE PROXIMA L DIAGNOSTIC Recall History of colonic polyps Health Maintenance Due Date Last Done Comments CKD PHOS USE SMARTSET 70259 1973 Cologuard 2000 Fecal Occult Blood Test [...] 12/0 11/2022, 01/21/2022, Additional history exists GFR 03/22/2025 09/19/2024, 08/21, 09/05/2024, Additional history exists Pneumococcal Vaccine: 50+ Years (3 of 3 - PCV20 or PCV21) 05/23/2025 05/23/2020, 05/27/2006 Diabetic Eye Exam 06/30/2025 06/30/2024, , 06/30/2024, Additional history exists CKD HGB USE SMARTSET 52791 09/19/202509/19, 09/12/2024, 09/05/2024, Additional history exists Colonoscopy 07/10/2028 07/10/2023, 04/0 [...] goiter Thrombocytopenia (HCC) Thrombocytopenia, unspecified Atherosclerosis of [place] coronary artery without angina pectoris, unspecified whether [place] or transplanted heart Chronic diastolic heart failure [...] BMI of 45.0-49.9, adult (HCC) Morbid obesity CKD (chronic kidney disease), symptom management only- Primary Chronic kidney disease, unspecified documented in this encounter Care Teams Wood Mill Supervisor Relationship Specialty Start Date End Date Oxana Willams MD [address] [place] [address] [place] [address] PCP - General Internal Medicine 08/17/23 documented as of this encounter
--- OUTSIDE RECORDS SUMMARY | 2024-09-29 03:33 | External Medical Summary ---
Author Name Unknown Address Unknown Organization [facility] [address] [facility] [address] [place] [address] Laboratory Report Ordering Provider Test Date Status MONICA FERNANDES 09/26/2024 05:30:00 Final Observation Date Value Abnormality Reference (Units ) Status WBC, Total 09/26/2024 05:30:00 11.92 Above high normal 4 .00-10.80 (K/uL) Final RBC 09/26/2024 05:30:00 3.12 3.85-5.15 (M/uL) Final Hemoglobin 09/26/2024 05:30:00 9.3 Below low normal 12 .0-15.3 (g/dL) Final HCT 09/26/2024 05:30:00 28.1 Below low normal 36. 0-45.2 (%) Final MCV 09/26/2024 05:30:00 90.1 81.5-97.5 (fL) Final MCH 09/26/2024 05:30:00 29.8 27.0-34.0 (pg) Final MCHC 09/26/2024 05:30:00 33.1 32.0-36.0 (g/dL) Final RDW 09/26/2024 05:30:00 14.3 11.5-15.5 (%) Final Platelets 09/26/2024 05:30:00 129 Below low normal 140 -400 (K/uL) Final MPV 09/26/2024 05:30:00 10.4 6.6-11.1 ( fL) Final Performing Location [facility] [place] [address] [place] [address]
--- OUTSIDE RECORDS SUMMARY | 2024-09-29 03:33 | External Medical Summary ---
Author Name Unknown Address Unknown Organization K01:LABORATORY C - [address] [place] [place] [address] Laboratory Report Ordering Provider Test Date Status MONICA FERNANDES 09/26/2024 05:30:00 Final Observation Date Value Abnormality Reference (Units ) Status Ammonia 09/26/2024 05:30:00 43 Above high normal 11 -35 (umol/L) Final Performing Location LAB[facility] - [address] [place] [address]
--- OUTSIDE RECORDS SUMMARY | 2024-09-29 03:33 | External Medical Summary ---
Author Name Unknown Address Unknown Organization K0G:[facility] [place] [address] - [address] [place] [address] Laboratory Report Ordering Provider Test Date Status PATT AUSTIN 09/12/2024 05:27:00 Final Observation Date Value Abnormality Reference (Units ) Status WBC, Total 09/12/2024 05:27:00 5.48 4.00-10.8 0 (K/uL) Final RBC 09/12/2024 05:27:00 3.04 3.85-5.15 (M/uL) Final Hemoglobin 09/12/2024 05:27:00 9.3 Below low normal 12 .0-15.3 (g/dL) Final HCT 09/12/2024 05:27:00 29.1 Below low normal 36. 0-45.2 (%) Final MCV 09/12/2024 05:27:00 95.7 81.5-97.5 (fL) Final MCH 09/12/2024 05:27:00 30.6 27.0-34.0 (pg) Final MCHC 09/12/2024 05:27:00 32.0 32.0-36.0 (g/dL) Final RDW 09/12/2024 05:27:00 14.3 11.5-15.5 (%) Final Platelets 09/12/2024 05:27:00 129 Below low normal 140 -400 (K/uL) Final MPV 09/12/2024 05:27:00 11.3 6.6-11.1 ( fL) Final Performing Location LAB[facility]ATORY [facility] [place] [address] [place] [address]
--- OUTSIDE RECORDS SUMMARY | 2024-09-29 03:34 | External Medical Summary | Summary of Care ---
Author Name Unknown Organization [facility] Address [address] [facility] [address] Phone [phone] Care Team Providers Care Director [employer] Name Role Phone Oxana Willams MD Primary Care Provider [phone] Reason for Visit * Reason Onset Date Comments Information 09/07/2024 Labs not good en ough to use IV contrast for CT Scan. Encounter Details Date Type Department Care Team (Late st Contact Info) Description 09/07/2024 Telephone Radiology [facility] [address] [place] [phone] Keshia [...] as of this encounter (statuses as of 09/07/2024) Medications DIURETIC TITRATION PLANIndications:Aquiles ambriz diastolic congestive heart failure (HCC) If no improvement on day 3, contact heart failure managing provider or [facility] at home case finishing machine adjuster 1 Each 01/19/20 19 Active Medical Compression [...] 3 12/03/19 22 Active OneTouch Delica Plus [id number] ns:Type 2 diabetes mellitus with hemoglobin A1c [...] as of this encounter (statuses as of 09/07/2024) Active Problems Problem Noted Date Diagnosed Date [...] Assessment & Plan (10/16/2021 12:04 PM EDT): [facility] Call: Not taking diuretics 2/2 combination [...] above regimen Atherosclerotic heart diseas e of [place] coronary artery without angina pectoris 09/08/2019 Assessment [...] obesity with BMI of 45.0-49.9, adult 01/2018 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 DM gastroparesis IBS (irritable bowel syndrome) documented as of this encounter (statuses as of 09/07/2024) Resolved Problems Problem Noted Date Diagnosed Date [...] as of this encounter (statuses as of 09/07/2024) Immunizations Name Administration Dates Next Due COVID-19 Whole Virus, Quispe Vac, 2-Dose Series ([employer]) 09/03/2020,08/03/2020 COVID-19 mRNA, LNP-s, No Pre serve, 2-Dose Series ([employer]) 09/02/2020,08/12/2020 HEP A - Hepatitis A (Adult [...] often do you attend chur ch or samaritan services? More than 4 times per year 06/01/2020 Do you belong to any clubs o r organizations such as pentecostalism groups, unions, fraternal or athletic groups, or [...] Answer Date Recorded PHQ-2 Score 0 03/08/2019 [facility] [place] of Occupat ional Health - Occupational Stress [...] place to sleep or slept in a snf (including now)? No 06/01/2020 Comments No Sex [...] MRI's are only done at 611 in [place]. Will get prior auth first then fax [...] 09/07/2024 12:00 PM EST Spoke to Nursing Ceramic Chemist for Indu. Indu is agreeable to the MRI as long it's in the Open MRI. Please order. Schedulers: Please call [phone], ext [phone] to schedule Open MRI * Telephone Encounter - Claudia Tomas CMA - 09/07/2024 11:22 AM EST Spoke with RN supervisor special effects Marcia. She is going to check with [...] then do the CT Scan. Keshia Breen GW documented in this encounter Plan of Treatment Upcoming Encounters Date Type Department Care Team (Late st Contact Info) Description 11/03/2024 11:00 AM EDT Office Visit Ophthalmology, [facility] [address] [place] [address] Henri Beauchamp, DO [address] [place] [address] 12/07/2024 12:00 PM EDT Office Visit Gastroenterology, [facility] [address] [place] [address] Sandhya Voss CRNP [address] [place] [address] 12/22/2024 10:00 AM EDT Office Visit Sleep Disorders Ctr [facility] [address] [place] [phone] Corinne Carlin CRNP [address] [place] [address] 03/30/2025 3:30 PM EDT Office Visit Cardiology [address] [place] [address] Adrianna Huffman PA-C [address] [place] [address] Scheduled Orders Name Type Priority Associated Diagnoses Orde r Schedule MRI LIVER W WO CONTRAST Medical Imaging Routine Hepatic cirrhosis, unspecified hepatic cirrhosis type, unspecified whether ascites present (HCC) Ordered: 09/07/2024 Scheduled Procedures Name Priority Associated Diagnoses Date/Ti me COLONOSCOPY FLEXIBLE PROXIMA L DIAGNOSTIC Recall History of colonic polyps Health Maintenance Due Date Last Done Comments CKD PHOS USE SMARTSET 99186 1973 Cologuard 2000 Fecal Occult Blood Test [...] 04/18/2020, Additional history exists B-12 12/22/2024 12/23/2023, 1211/2022, 01/21/2022, Additional history exists GFR 03/05/2025 09/05/2024, 08/20, 08/22/2024, Additional history exists Pneumococcal Vaccine: 50+ Years (3 of 3 - PCV20 or PCV21) 05/23/2025 05/23/2020, 05/27/2006 Diabetic Eye Exam 06/30/2025 06/30/2024, , 06/30/2024, Additional history exists CKD HGB USE SMARTSET 47781 09/05/202509/05, 08/29/2024, 08/22/2024, Additional history exists Colonoscopy 07/10/2028 07/10/2023, 0 07/2018, 07/21/2013, Additional history exists Colorectal Cancer [...] goiter Thrombocytopenia (HCC) Thrombocytopenia, unspecified Atherosclerosis of [place] coronary artery without angina pectoris, unspecified whether [place] or transplanted heart Chronic diastolic heart failure [...] Primary documented in this encounter Care Teams Director [employer] Relationship Specialty Start Date End Date Oxana Willams MD [address] [place] [address] [place] [address] PCP - General Internal Medicine 08/17/23 documented as of this encounter
--- OUTSIDE RECORDS SUMMARY | 2024-09-29 03:34 | External Medical Summary | Summary of Care ---
Author Name Unknown Organization [facility] Address [address] [facility] [address] Phone [phone] Care Team Providers Care Tube Knitter Name Role Phone Oxana Willams MD Primary Care Provider [phone] Reason for Visit * Reason Onset Date Comments Information 09/07/2024 Labs not good en ough to use IV contrast for CT Scan. Encounter Details Date Type Department Care Team (Late st Contact Info) Description 09/07/2024 Telephone Radiology [facility] 1st [facility] [address] [place] [phone] Keshia [...] as of this encounter (statuses as of 09/08/2024) Medications DIURETIC TITRATION PLANIndications:Aquiles ambriz diastolic congestive heart failure (HCC) If no improvement on day 3, contact heart failure managing provider or [facility] at home complex case manager 1 Each 01/19/20 19 Active [...] 3 12/03/19 22 Active OneTouch Delica Plus [id number] ns:Type 2 diabetes mellitus with hemoglobin A1c [...] as of this encounter (statuses as of 09/08/2024) Active Problems Problem Noted Date Diagnosed Date [...] Assessment & Plan (10/16/2021 12:04 PM EDT): [facility] Call: Not taking diuretics 2/2 combination of [...] above regimen Atherosclerotic heart diseas e of [place] coronary artery without angina pectoris 09/08/2019 Assessment [...] obesity with BMI of 45.0-49.9, adult 01/2018 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 Is able to pick and shovel man new medication today. Usually takes metolazone on [...] 01/13/13 PSG -- RDI 5.3 [facility] - [place] Gastroesophageal reflux disease without esophagi tis 11/22/2010 Assessment & Plan (05/09/2022 7:26 AM EDT): Sx controlled with ompeprazole DYSLIPIDEMIA, GOAL LDL BELOW 100 06/26/2009 Overview (06/26/2009): Per Lipid Taxonomy. DM gastroparesis IBS (irritable bowel syndrome) documented as of this encounter (statuses as of 09/08/2024) Resolved Problems Problem Noted Date Diagnosed Date [...] as of this encounter (statuses as of 09/08/2024) Immunizations Name Administration Dates Next Due COVID-19 Whole Virus, Quispe Vac, 2-Dose Series ([employer]) 09/03/2020,08/03/2020 COVID-19 mRNA, LNP-s, No Pre serve, 2-Dose Series ([employer]) 09/02/2020,08/12/2020 HEP A - Hepatitis A (Adult [...] often do you attend chur ch or shinto services? More than 4 times per year 06/01/2020 Do you belong to any clubs o r organizations such as gnosticism groups, unions, fraternal or athletic groups, or [...] PHQ-2 Score 0 03/08/2019 [facility] [place] of Occupat ional Health - Occupational Stress [...] to sleep or slept in a senior care (including now)? No 06/01/2020 Comments No Sex [...] MRI's are only done at [address] in [place]. Will get prior auth first then fax [...] 09/07/2024 12:00 PM EST Spoke to Nursing Local Superintendent for Indu. Indu is agreeable to the MRI as long it's in the Open MRI. Please order. Schedulers: Please call [phone], ext [phone] to schedule Open MRI * Telephone Encounter - Claudia Tomas CMA - 09/07/2024 11:22 AM EST Spoke with RN animal maintenance supervisor Marcia. She is going to check [...] agreeable and able to get an MRI. OR we wait until labs are better and then do the CT Scan. Keshia Breen GW documented in this encounter Plan of Treatment Upcoming Encounters Date Type Department Care Team (Late st Contact Info) Description 11/03/2024 11:00 AM EDT Office Visit Ophthalmology, [facility] [address] [place] [address] Henri Beauchamp, DO [address] [place] [address] 12/07/2024 12:00 PM EDT Office Visit Gastroenterology, [facility] [address] [place] [address] Sandhya Voss CRNP [address] [place] [address] 12/22/2024 10:00 AM EDT Office Visit Sleep Disorders Ctr [facility] [address] [place] [phone] Corinne Carlin CRNP [address] [place] [address] 03/30/2025 3:30 PM EDT Office Visit Cardiology [address] [place] [address] Adrianna Huffman PA-C [address] [place] [address] Scheduled Orders Name Type Priority Associated Diagnoses Orde r Schedule MRI LIVER W WO CONTRAST Medical Imaging Routine Hepatic cirrhosis, unspecified hepatic cirrhosis type, unspecified whether ascites present (HCC) Ordered: 09/07/2024 Scheduled Procedures Name Priority Associated Diagnoses Date/Ti me COLONOSCOPY FLEXIBLE PROXIMA L DIAGNOSTIC Recall History of colonic polyps Health Maintenance Due Date Last Done Comments CKD PHOS USE SMARTSET 12706 1973 Cologuard 2000 Fecal Occult Blood Test [...] Additional history exists CKD HGB USE SMARTSET 13280 09/05/202509/05, 08/29/2024, 08/22/2024, Additional history exists Colonoscopy [...] goiter Thrombocytopenia (HCC) Thrombocytopenia, unspecified Atherosclerosis of [place] coronary artery without angina pectoris, unspecified whether [place] or transplanted heart Chronic diastolic heart failure [...] Primary documented in this encounter Care Teams Tube Knitter Relationship Specialty Start Date End Date [place] Willams MD [address] [place] [address] [place] [address] PCP - General Internal Medicine 08/17/23 documented as of this encounter
--- OUTSIDE RECORDS SUMMARY | 2024-09-29 03:34 | External Medical Summary | Summary of Care ---
Author Name Unknown Organization [facility] Address [address] [facility] [address] Phone [phone] Care Team Providers Care Teacher Of The Deaf Name Role Phone Oxana Willams MD Primary Care Provider [phone] [phone] Reason for Visit * Reason Onset Date Comments Information 09/07/2024 Labs not good en ough to use IV contrast for CT Scan. Encounter Details Date Type Department Care Team (Late st Contact Info) Description 09/07/2024 Telephone Radiology [facility] 1st [facility] [address] [place] [phone] Keshia [...] managing provider or [facility] at home case work aide 1 Each 01/19/20 19 Active Medical Compression [...] 3 12/03/19 22 Active OneTouch Delica Plus [id number] ns:Type 2 diabetes mellitus with hemoglobin A1c [...] Assessment & Plan (10/16/2021 12:04 PM EDT): [facility] Call: Not taking diuretics 2/2 [...] above regimen Atherosclerotic heart diseas e of [place] coronary artery without angina pectoris 09/08/2019 Assessment [...] obesity with BMI of 45.0-49.9, adult 01/2018 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 Is able to black pickler new medication today. Usually takes metolazone on [...] 01/13/13 PSG -- RDI 5.3 [facility] - [place] Gastroesophageal reflux disease without esophagi tis 11/22/2010 [...] COVID-19 Whole Virus, Quispe Vac, 2-Dose Series ([employer]) 09/03/2020,08/03/2020 COVID-19 mRNA, LNP-s, No Pre serve, 2-Dose Series ([employer]) 09/02/2020,08/12/2020 HEP A - Hepatitis A (Adult [...] often do you attend chur ch or sikh services? More than 4 times per year 06/01/2020 Do you belong to any clubs o r organizations such as gnosticist groups, unions, fraternal or athletic groups, or [...] Answer Date Recorded PHQ-2 Score 0 03/08/2019 [facility] [place] of Occupat ional Health - Occupational Stress [...] place to sleep or slept in a chcf (including now)? No 06/01/2020 Comments No Sex [...] MRI's are only done at 611 in [place]. Will get prior auth first then fax [...] 09/07/2024 12:00 PM EST Spoke to Nursing Registered Phlebotomist Part Time for Indu. Indu is agreeable to the MRI as long it's in the Open MRI. Please order. Schedulers: Please call [phone], ext [phone] to schedule Open MRI * Telephone Encounter - Claudia Tomas CMA - 09/07/2024 11:22 AM EST Spoke with RN supervisor sewing room Marcia. She is going to check with [...] 11/03/2024 11:00 AM EDT Office Visit Ophthalmology, [facility] [address] [place] [address] Henri Beauchamp, DO [address] [place] [address] 12/07/2024 12:00 PM EDT Office Visit Gastroenterology, [facility] [address] [place] [address] Sandhya Voss CRNP [address] [place] [address] 12/22/2024 10:00 AM EDT Office Visit Sleep Disorders Ctr [facility] [address] [place] [phone] Corinne Carlin CRNP [address] [place] [address] 03/30/2025 3:30 PM EDT Office Visit Cardiology [address] [place] [address] Adrianna Huffman PA-C [address] [place] [address] Scheduled Orders Name Type Priority Associated Diagnoses Orde r Schedule MRI LIVER W WO CONTRAST Medical Imaging Routine Hepatic cirrhosis, unspecified hepatic cirrhosis type, unspecified whether ascites present (HCC) Ordered: 09/07/2024 Scheduled Procedures Name Priority Associated Diagnoses Date/Ti me COLONOSCOPY FLEXIBLE PROXIMA L DIAGNOSTIC Recall History of colonic polyps Health Maintenance Due Date Last Done Comments CKD PHOS USE SMARTSET 72642 1973 Cologuard 2000 Fecal Occult Blood Test [...] Additional history exists CKD HGB USE SMARTSET 82791 09/05/202509/05, 08/29/2024, 08/22/2024, Additional history exists Colonoscopy [...] goiter Thrombocytopenia (HCC) Thrombocytopenia, unspecified Atherosclerosis of [place] coronary artery without angina pectoris, unspecified whether [place] or transplanted heart Chronic diastolic heart failure [...] Primary documented in this encounter Care Teams Teacher Of The Deaf Relationship Specialty Start Date End Date Oxana Willams MD [address] [place] [address] [place] [address] PCP - General Internal Medicine 08/17/23 documented as of this encounter
--- OUTSIDE RECORDS SUMMARY | 2024-09-29 03:34 | External Medical Summary | Summary of Care ---
Author Name Unknown Organization [facility] Address [address] [facility] [address] Phone [phone] Care Team Providers Care Pipe Threader Name Role Phone Oxana Willams MD Primary Care Provider [phone] [phone] Reason for Visit * Reason Onset Date Comments Information 09/07/2024 Labs not good en ough to use IV contrast for CT Scan. Encounter Details Date Type Department Care Team (Late st Contact Info) Description 09/07/2024 Telephone Radiology [facility] 1st [facility] [address] [place] [phone] Keshia [...] managing provider or [facility] at home case filler 1 Each 01/19/20 19 Active Medical Compression [...] 3 12/03/19 22 Active OneTouch Delica Plus [id number] ns:Type 2 diabetes mellitus with hemoglobin A1c [...] Assessment & Plan (10/16/2021 12:04 PM EDT): [facility] Call: Not taking diuretics 2/2 [...] above regimen Atherosclerotic heart diseas e of [place] coronary artery without angina pectoris 09/08/2019 Assessment [...] obesity with BMI of 45.0-49.9, adult 01/2018 buttermaker (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 Is able to hop picker new medication today. Usually takes metolazone [...] 01/13/13 PSG -- RDI 5.3 [facility] - [place] Gastroesophageal reflux disease without esophagi tis 11/22/2010 [...] COVID-19 Whole Virus, Quispe Vac, 2-Dose Series ([employer]) 09/03/2020,08/03/2020 COVID-19 mRNA, LNP-s, No Pre serve, 2-Dose Series ([employer]) 09/02/2020,08/12/2020 HEP A - Hepatitis A (Adult [...] often do you attend chur ch or pentecostalism services? More than 4 times per year 06/01/2020 Do you belong to any clubs o r organizations such as sabianism groups, unions, fraternal or athletic groups, or [...] Answer Date Recorded PHQ-2 Score 0 03/08/2019 [facility] [place] of Occupat ional Health - Occupational Stress [...] place to sleep or slept in a fpc (including now)? No 06/01/2020 Comments No Sex [...] MRI's are only done at 611 in [place]. Will get prior auth first then fax [...] 09/07/2024 12:00 PM EST Spoke to Nursing Commissioner Of Internal Revenue for Indu. Indu is agreeable to the MRI as long it's in the Open MRI. Please order. Schedulers: Please call [phone], ext [phone] to schedule Open MRI * Telephone Encounter - Claudia Tomas CMA - 09/07/2024 11:22 AM EST Spoke with RN operations supervisor 2nd shift Marcia. She is going to check with [...] 11/03/2024 11:00 AM EDT Office Visit Ophthalmology, [facility] [address] [place] [address] Henri Beauchamp, DO [address] [place] [address] 12/07/2024 12:00 PM EDT Office Visit Gastroenterology, [facility] [address] [place] [address] Sandhya Voss CRNP [address] [place] [address] 12/22/2024 10:00 AM EDT Office Visit Sleep Disorders Ctr [facility] [address] [place] [phone] Corinne Carlin CRNP [address] [place] [address] 03/30/2025 3:30 PM EDT Office Visit Cardiology [address] [place] [address] Adrianna Huffman PA-C [address] [place] [address] Scheduled Orders Name Type Priority Associated Diagnoses Orde r Schedule MRI LIVER W WO CONTRAST Medical Imaging Routine Hepatic cirrhosis, unspecified hepatic cirrhosis type, unspecified whether ascites present (HCC) Ordered: 09/07/2024 Scheduled Procedures Name Priority Associated Diagnoses Date/Ti me COLONOSCOPY FLEXIBLE PROXIMA L DIAGNOSTIC Recall History of colonic polyps Health Maintenance Due Date Last Done Comments CKD PHOS USE SMARTSET 72651 1973 Cologuard 2000 Fecal Occult Blood Test [...] Additional history exists CKD HGB USE SMARTSET 97968 09/05/202509/05, 08/29/2024, 08/22/2024, Additional history exists Colonoscopy [...] goiter Thrombocytopenia (HCC) Thrombocytopenia, unspecified Atherosclerosis of [place] coronary artery without angina pectoris, unspecified whether [place] or transplanted heart Chronic diastolic heart failure [...] Primary documented in this encounter Care Teams Pipe Threader Relationship Specialty Start Date End Date Oxana Willams MD [address] [place] [address] [place] [address] PCP - General Internal Medicine 08/17/23 documented as of this encounter
--- OUTSIDE RECORDS SUMMARY | 2024-09-29 03:35 | External Medical Summary | Summary of Care ---
Author Name Unknown Organization [facility] Address [address] [facility] [address] Phone [phone] Care Team Providers Care Food Safety Officer Name Role Phone Oxana Willams MD Primary Care Provider [phone] Reason for Visit * Reason Onset Date Comments Information 09/07/2024 Labs not good en ough to use IV contrast for CT Scan. Encounter Details Date Type Department Care Team (Late st Contact Info) Description 09/07/2024 Telephone Radiology [facility] 1st [facility] [address] [place] [phone] [place]ia [...] failure managing provider or [facility] at home rehabilitation case coordinator 1 Each 01/19/20 19 Active Medical Compression [...] 3 12/03/19 22 Active OneTouch Delica Plus [id number] ns:Type 2 diabetes mellitus with hemoglobin A1c [...] Assessment & Plan (10/16/2021 12:04 PM EDT): [facility] Call: Not taking diuretics 2/2 combination [...] above regimen Atherosclerotic heart diseas e of [place] coronary artery without angina pectoris 09/08/2019 Assessment [...] obesity with BMI of 45.0-49.9, adult 01/2018 intermediate manager (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 Is able to fruit picker new medication today. Usually takes metolazone [...] 01/13/13 PSG -- RDI 5.3 [facility] - [place] Gastroesophageal reflux disease without esophagi tis 11/22/2010 [...] COVID-19 Whole Virus, Quispe Vac, 2-Dose Series ([employer]) 09/03/2020,08/03/2020 COVID-19 mRNA, LNP-s, No Pre serve, 2-Dose Series ([employer]) 09/02/2020,08/12/2020 HEP A - Hepatitis A (Adult [...] often do you attend chur ch or restorationist services? More than 4 times per year 06/01/2020 Do you belong to any clubs o r organizations such as religion groups, unions, fraternal or athletic groups, or [...] Answer Date Recorded PHQ-2 Score 0 03/08/2019 [facility] [place] of Occupat ional Health - Occupational Stress [...] place to sleep or slept in a retirement (including now)? No 06/01/2020 Comments No Sex [...] MRI's are only done at 611 in [place]. Will get prior auth first then fax [...] 09/07/2024 12:00 PM EST Spoke to Nursing Quality Tester for Indu. Indu is agreeable to the MRI as long it's in the Open MRI. Please order. Schedulers: Please call [phone], ext [phone] to schedule Open MRI * Telephone Encounter - Claudia Tomas CMA - 09/07/2024 11:22 AM EST Spoke with RN drawing kiln supervisor Marcia. She is going to check [...] 11/03/2024 11:00 AM EDT Office Visit Ophthalmology, [facility] [address] [place] [address] Henri Beauchamp, DO [address] [place] [address] 12/07/2024 12:00 PM EDT Office Visit Gastroenterology, [facility] [address] [place] [address] Sandhya Voss CRNP [address] [place] [address] 12/22/2024 10:00 AM EDT Office Visit Sleep Disorders Ctr [facility] [address] [place] [phone] Corinne Carlin CRNP [address] [place] [address] 03/30/2025 3:30 PM EDT Office Visit Cardiology [address] [place] [address] Adrianna Huffman PA-C [address] [place] [address] Scheduled Orders Name Type Priority Associated Diagnoses Orde r Schedule MRI LIVER W WO CONTRAST Medical Imaging Routine Hepatic cirrhosis, unspecified hepatic cirrhosis type, unspecified whether ascites present (HCC) Ordered: 09/07/2024 Scheduled Procedures Name Priority Associated Diagnoses Date/Ti me COLONOSCOPY FLEXIBLE PROXIMA L DIAGNOSTIC Recall History of colonic polyps Health Maintenance Due Date Last Done Comments CKD PHOS USE SMARTSET 50797 1973 Cologuard 2000 Fecal Occult Blood Test [...] Additional history exists CKD HGB USE SMARTSET 32330 09/05/202509/05, 08/29/2024, 08/22/2024, Additional history exists Colonoscopy [...] goiter Thrombocytopenia (HCC) Thrombocytopenia, unspecified Atherosclerosis of [place] coronary artery without angina pectoris, unspecified whether [place] or transplanted heart Chronic diastolic heart failure [...] Primary documented in this encounter Care Teams Food Safety Officer Relationship Specialty Start Date End Date Oxana Willams MD [address] [place] [address] [place] [address] PCP - General Internal Medicine 08/17/23 documented as of this encounter
--- OUTSIDE RECORDS SUMMARY | 2024-09-29 03:35 | External Medical Summary | Summary of Care ---
Author Name Unknown Organization [facility] Address [address] [facility] [address] Phone [phone] Care Team Providers Care Double End Tenoner Operator Name Role Phone Oxana Willams MD Primary Care Provider [phone] [phone] Reason for Visit * Reason Onset Date Comments Information 09/07/2024 Labs not good en ough to use IV contrast for CT Scan. Encounter Details Date Type Department Care Team (Late st Contact Info) Description 09/07/2024 Telephone Radiology [facility] 1st [facility] [address] [place] [phone] [place] [...] failure managing provider or [facility] at home corrections caseworker 1 Each 01/19/20 19 Active Medical Compression [...] 3 12/03/19 22 Active OneTouch Delica Plus [id number] ns:Type 2 diabetes mellitus with hemoglobin A1c [...] Assessment & Plan (10/16/2021 12:04 PM EDT): [facility] Call: Not taking diuretics 2/2 combination of [...] above regimen Atherosclerotic heart diseas e of [place] coronary artery without angina pectoris 09/08/2019 Assessment [...] obesity with BMI of 45.0-49.9, adult 01/2018 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 Is able to seed cone picker new medication today. Usually takes metolazone [...] 01/13/13 PSG -- RDI 5.3 [facility] - [place] Gastroesophageal reflux disease without esophagi tis 11/22/2010 [...] COVID-19 Whole Virus, Quispe Vac, 2-Dose Series ([employer]) 09/03/2020,08/03/2020 COVID-19 mRNA, LNP-s, No Pre serve, 2-Dose Series ([employer]) 09/02/2020,08/12/2020 HEP A - Hepatitis A (Adult [...] often do you attend chur ch or zoroastrian services? More than 4 times per year [...] Answer Date Recorded PHQ-2 Score 0 03/08/2019 [facility] [place] of Occupat ional Health - Occupational Stress [...] place to sleep or slept in a mcfp (including now)? No 06/01/2020 Comments No Sex [...] MRI's are only done at 611 in [place]. Will get prior auth first then fax [...] 09/07/2024 12:00 PM EST Spoke to Nursing Bingo Caller for Indu. Indu is agreeable to the MRI as long it's in the Open MRI. Please order. Schedulers: Please call [phone], ext [phone] to schedule Open MRI * Telephone Encounter - Claudia Tomas CMA - 09/07/2024 11:22 AM EST Spoke with RN extension service supervisor Marcia. She is going to [...] 11/03/2024 11:00 AM EDT Office Visit Ophthalmology, [facility] [address] [place] [address] Henri Beauchamp, DO [address] [place] [address] 12/07/2024 12:00 PM EDT Office Visit Gastroenterology, [facility] [address] [place] [address] Sandhya Voss CRNP [address] [place] [address] 12/22/2024 10:00 AM EDT Office Visit Sleep Disorders Ctr [facility] [address] [place] [phone] Corinne Carlin CRNP [address] [place] [address] 03/30/2025 3:30 PM EDT Office Visit Cardiology [address] [place] [address] Adrianna Huffman PA-C [address] [place] [address] Scheduled Orders Name Type Priority Associated Diagnoses Orde r Schedule MRI LIVER W WO CONTRAST Medical Imaging Routine Hepatic cirrhosis, unspecified hepatic cirrhosis type, unspecified whether ascites present (HCC) Ordered: 09/07/2024 Scheduled Procedures Name Priority Associated Diagnoses Date/Ti me COLONOSCOPY FLEXIBLE PROXIMA L DIAGNOSTIC Recall History of colonic polyps Health Maintenance Due Date Last Done Comments CKD PHOS USE SMARTSET 39394 1973 Cologuard 2000 Fecal Occult Blood Test [...] Additional history exists CKD HGB USE SMARTSET 99712 09/05/202509/05, 08/29/2024, 08/22/2024, Additional history exists Colonoscopy [...] goiter Thrombocytopenia (HCC) Thrombocytopenia, unspecified Atherosclerosis of [place] coronary artery without angina pectoris, unspecified whether [place] or transplanted heart Chronic diastolic heart failure [...] Primary documented in this encounter Care Teams Double End Tenoner Operator Relationship Specialty Start Date End Date Oxana Willams MD [address] [place] [address] [place] [address] PCP - General Internal Medicine 08/17/23 documented as of this encounter
--- OUTSIDE RECORDS SUMMARY | 2024-09-29 03:35 | External Medical Summary | Summary of Care ---
Author Name Unknown Organization [facility] Address [address] [facility] [address] Phone [phone] Care Team Providers Care Skiff Operator Name Role Phone Oxana Willams MD Primary Care Provider [phone] [phone] Reason for Visit * Reason Onset Date Comments Information 09/07/2024 Labs not good en ough to use IV contrast for CT Scan. Encounter Details Date Type Department Care Team (Late st Contact Info) Description 09/07/2024 Telephone Radiology [facility] [address] [facility] [address] [place] [phone] [place] [...] managing provider or [facility] at home case management assistant 1 Each 01/19/20 19 Active Medical Compression [...] 3 12/03/19 22 Active OneTouch Delica Plus [id number] ns:Type 2 diabetes mellitus with hemoglobin A1c [...] Assessment & Plan (10/16/2021 12:04 PM EDT): [facility] Call: Not taking diuretics 2/2 combination of [...] above regimen Atherosclerotic heart diseas e of [place] coronary artery without angina pectoris 09/08/2019 Assessment [...] obesity with BMI of 45.0-49.9, adult 01/2018 medical office manager (current) use of insulin 03/26/2018 Pressure [...] out diuretics since 10/15. Is able to parts picker new medication today. Usually takes metolazone [...] 01/13/13 PSG -- RDI 5.3 [facility] - [place] Gastroesophageal reflux disease without esophagi tis 11/22/2010 [...] COVID-19 Whole Virus, Quispe Vac, 2-Dose Series ([employer]) 09/03/2020,08/03/2020 COVID-19 mRNA, LNP-s, No Pre serve, 2-Dose Series ([employer]) 09/02/2020,08/12/2020 HEP A - Hepatitis A (Adult [...] any clubs o r organizations such as zoroastrianism groups, unions, fraternal or athletic groups, or [...] Answer Date Recorded PHQ-2 Score 0 03/08/2019 [facility] [place] of Occupat ional Health - Occupational Stress [...] place to sleep or slept in a halfway (including now)? No 06/01/2020 Comments No Sex [...] as of this encounter Miscellaneous Notes * Addendum Note - Sandhya Voss CRNP [...] 09/07/2024 12:00 PM EST Spoke to Nursing Agile Java Developer for Indu. Indu is agreeable to the MRI as long it's in the Open MRI. Please order. Schedulers: Please call [phone], ext [phone] to schedule Open MRI * Telephone Encounter - Claudia Tomas CMA - 09/07/2024 11:22 AM EST Spoke with RN smoke jumper supervisor Marcia. She is going to check [...] 11/03/2024 11:00 AM EDT Office Visit Ophthalmology, [facility] [address] [place] [address] Henri Beauchamp, [address] [place] [address] 12/07/2024 12:00 PM EDT Office Visit Gastroenterology, [facility] [address] [place] [address] Sandhya Voss CRNP [address] [place] [address] 12/22/2024 10:00 AM EDT Office Visit Sleep Disorders Ctr [facility] [address] [place] [phone] Corinne Carlin CRNP [address] [place] [address] 03/30/2025 3:30 PM EDT Office Visit Cardiology [address] [place] [address] Adrianna Huffman, [place] [address] [place] [address] Scheduled Orders Name Type Priority Associated Diagnoses Orde r Schedule MRI LIVER W WO CONTRAST Medical Imaging Routine Hepatic cirrhosis, unspecified hepatic cirrhosis type, unspecified whether ascites present (HCC) Ordered: 09/07/2024 Scheduled Procedures Name Priority Associated Diagnoses Date/Ti me COLONOSCOPY FLEXIBLE PROXIMA L DIAGNOSTIC Recall History of colonic polyps Health Maintenance Due Date Last Done Comments CKD PHOS USE SMARTSET 70119 1973 Cologuard 2000 Fecal Occult Blood Test [...] Additional history exists CKD HGB USE SMARTSET 76758 09/05/202509/05, 08/29/2024, 08/22/2024, Additional history exists Colonoscopy [...] goiter Thrombocytopenia (HCC) Thrombocytopenia, unspecified Atherosclerosis of [place] coronary artery without angina pectoris, unspecified whether [place] or transplanted heart Chronic diastolic heart failure [...] Primary documented in this encounter Care Teams Skiff Operator Relationship Specialty Start Date End Date Oxana Willams MD [address] [place] [address] [place] [address] PCP - General Internal Medicine 08/17/23 documented as of this encounter
--- OUTSIDE RECORDS SUMMARY | 2024-09-29 03:36 | External Medical Summary | Summary of Care ---
Author Name Unknown Organization [facility] Address [address] [facility] [address] Phone [phone] Care Team Providers Care Probate Clerk Name Role Phone Oxana Willams MD Primary Care Provider [phone] [phone] Reason for Visit * Reason Onset Date Comments Information 09/07/2024 Labs not good en ough to use IV contrast for CT Scan. Encounter Details Date Type Department Care Team (Late st Contact Info) Description 09/07/2024 Telephone Radiology [facility] 1st [facility] [address] [place] [address] [...] failure managing provider or [facility] at home pillowcase sewer 1 Each 01/19/20 19 Active Medical Compression [...] 3 12/03/19 22 Active OneTouch Delica Plus [id number] ns:Type 2 diabetes mellitus with hemoglobin A1c [...] Assessment & Plan (10/16/2021 12:04 PM EDT): [facility] Call: Not taking diuretics 2/2 [...] above regimen Atherosclerotic heart diseas e of [place] coronary artery without angina pectoris 09/08/2019 Assessment [...] obesity with BMI of 45.0-49.9, adult 01/2018 roasterman (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 Is able to cotton picker new medication today. Usually takes metolazone [...] 01/13/13 PSG -- RDI 5.3 [facility] - [place] Gastroesophageal reflux disease without esophagi tis 11/22/2010 [...] COVID-19 Whole Virus, Quispe Vac, 2-Dose Series (Foundation[employer]) 09/03/2020,08/03/2020 COVID-19 mRNA, LNP-s, No Pre serve, 2-Dose Series ([employer]) 09/02/2020,08/12/2020 HEP A - Hepatitis A (Adult [...] often do you attend chur ch or tenriism services? More than 4 times per year [...] Answer Date Recorded PHQ-2 Score 0 03/08/2019 [facility] [place] of Occupat ional Health - Occupational Stress [...] place to sleep or slept in a penitentiary (including now)? No 06/01/2020 Comments No Sex [...] 09/07/2024 12:00 PM EST Spoke to Nursing Saddle And Harness Maker for Indu. Indu is agreeable to the MRI as long it's in the Open MRI. Please order. Schedulers: Please call [phone], ext [phone] to schedule Open MRI * Telephone Encounter - Claudia Tomas CMA - 09/07/2024 11:22 AM EST Spoke with RN pile driving supervisor Marcia. She is going to check [...] 11/03/2024 11:00 AM EDT Office Visit Ophthalmology, [facility] [address] [place] [address] Henri Beauchamp, [address] [place] [address] 12/07/2024 12:00 PM EDT Office Visit Gastroenterology, [facility] [address] [place] [address] Sandhya Voss CRNP [address] [place] [address] 12/22/2024 10:00 AM EDT Office Visit Sleep Disorders Ctr [facility] [address] [place] [phone] Corinne Carlin CRNP [address] [place] [address] 03/30/2025 3:30 PM EDT Office Visit Cardiology [address] [place] [address] Adrianna Huffman, [place] [address] [place] [address] Scheduled Orders Name Type Priority Associated Diagnoses Orde r Schedule MRI LIVER W WO CONTRAST Medical Imaging Routine Hepatic cirrhosis, unspecified hepatic cirrhosis type, unspecified whether ascites present (HCC) Ordered: 09/07/2024 Scheduled Procedures Name Priority Associated Diagnoses Date/Ti me COLONOSCOPY FLEXIBLE PROXIMA L DIAGNOSTIC Recall History of colonic polyps Health Maintenance Due Date Last Done Comments CKD PHOS USE SMARTSET 00350 1973 Cologuard 2000 Fecal Occult Blood Test [...] Additional history exists CKD HGB USE SMARTSET 65674 09/05/202509/05, 08/29/2024, 08/22/2024, Additional history exists Colonoscopy [...] goiter Thrombocytopenia (HCC) Thrombocytopenia, unspecified Atherosclerosis of [place] coronary artery without angina pectoris, unspecified whether [place] or transplanted heart Chronic diastolic heart failure [...] Primary documented in this encounter Care Teams Probate Clerk Relationship Specialty Start Date End Date Oxana Willams MD [address] [place] [address] [place] [address] PCP - General Internal Medicine 08/17/23 documented as of this encounter
--- OUTSIDE RECORDS SUMMARY | 2024-09-29 03:36 | External Medical Summary ---
Author Name Unknown Address Unknown Organization [id number][facility] [place] [address] [place] [address] Laboratory Report Ordering Provider Test Date Status MONICA FERNANDES 09/05/2024 05:30:00 Final Observation Date Value Abnormality Reference (Units ) Status WBC, Total 09/05/2024 05:30:00 6.33 4.00-10.8 0 (K/uL) Final RBC 09/05/2024 05:30:00 3.10 3.85-5.15 (M/uL) Final Hemoglobin 09/05/2024 05:30:00 9.4 Below low normal 12 .0-15.3 (g/dL) Final HCT 09/05/2024 05:30:00 29.6 Below low normal 36. 0-45.2 (%) Final MCV 09/05/2024 05:30:00 95.5 81.5-97.5 (fL) Final MCH 09/05/2024 05:30:00 30.3 27.0-34.0 (pg) Final MCHC 09/05/2024 05:30:00 31.8 32.0-36.0 (g/dL) Final RDW 09/05/2024 05:30:00 13.9 11.5-15.5 (%) Final Platelets 09/05/2024 05:30:00 114 Below low normal 140 -400 (K/uL) Final MPV 09/05/2024 05:30:00 11.8 6.6-11.1 ( fL) Final Performing Location [facility] [place] [address] [place] [address]
--- OUTSIDE RECORDS SUMMARY | 2024-09-29 03:36 | External Medical Summary | Summary of Care ---
Author Name Unknown Organization [facility] Address [address] [facility] [place] [address] Phone [phone] Care Team Providers Care Health It Specialist Name Role Phone Oxana Willams MD Primary Care Provider [phone] Encounter Details Date Type Department Care Team (Late st Contact Info) Description 09/01/2024 Orders Only PATIENT PORTAL DO NOT DELETE THIS DEPT USED BY [place] [address] Allergies Active Allergy Reactions Criticality Noted Date [...] as of this encounter (statuses as of 09/01/2024) Medications DIURETIC TITRATION PLANIndications:Aquiles ambriz diastolic congestive heart failure (HCC) If no improvement on day 3, contact heart failure managing provider or [facility] at home case technician 1 Each 01/19/20 19 Active Medical Compression [...] 3 12/03/19 22 Active OneTouch Delica Plus [id number] ns:Type 2 diabetes mellitus with hemoglobin A1c [...] Courtney 2 Sensor Use as directed. 07/01/20 Active Diclofenac Sodium 1 % External Gel [...] as of this encounter (statuses as of 09/01/2024) Active Problems Problem Noted Date Diagnosed Date Constipation 05/21/2022 Assessment & Plan (05/21/2022 4:37 PM EDT): Passing gas today, no distress. No BM since last Th. Advised to use glycerin supp tonight. She [...] above regimen Atherosclerotic heart diseas e of [place] coronary artery without angina pectoris 09/08/2019 Assessment [...] obesity with BMI of 45.0-49.9, adult 01/2018 prison (current) use of insulin 03/26/2018 Pressure sore [...] mg daily, metolazone, 5 mg m, w, , and spironolactone 100 mg daily -pending blood work. May hold Thursday's dose of metolazone. Assessment & Plan (10/22/2021 8:32 AM EDT): Weight gain in symptoms after patient has been out diuretics since 10/15. Is able to sweet pickle maker new medication today. Usually takes metolazone on [...] PSG -- RDI 5.3 [facility] - [place] Gastroesophageal reflux disease without esophagi tis 11/22/2010 Assessment & Plan (05/09/2022 7:26 AM EDT): Sx controlled with ompeprazole DYSLIPIDEMIA, GOAL LDL BELOW 100 06/26/2009 Overview (06/26/2009): Per Lipid Taxonomy. DM gastroparesis IBS (irritable bowel syndrome) documented as of this encounter (statuses as of 09/01/2024) Resolved Problems Problem Noted Date Diagnosed Date [...] colon 09/17/200901/2018 Overview (10/09/2009): sellile serrated adenoma, [facility], f/u in colonoscopy in 5 yrs Type [...] as of this encounter (statuses as of 09/01/2024) Immunizations Name Administration Dates Next Due COVID-19 Whole Virus, Quispe Vac, 2-Dose Series (MAZ) 09/03/2020,08/03/2020 COVID-19 mRNA, LNP-s, No Pre serve, 2-Dose Series (Piper) 09/02/2020,08/12/2020 HEP A - Hepatitis A (Adult [...] often do you attend chur ch or scientologist services? More than 4 times per year 06/01/2020 Do you belong to any clubs o r organizations such as synagogue groups, unions, fraternal or athletic groups, or [...] Answer Date Recorded PHQ-2 Score 0 03/08/2019 [facility] [place] of Occupat ional Health - Occupational Stress [...] Care Team (Late st Contact Info) Description 09/08/2024 11:00 AM EST Imaging Radiology [facility] [address] [place] [phone] 11/03/2024 11:00 AM EDT Office Visit Ophthalmology, [facility] [address] [place] [address] Henri Beauchamp DO [address] [place] [address] 12/07/2024 12:00 PM EDT Office Visit Gastroenterology, [facility] [address] [place] [address] Sandhya Blair CRNP [address] [place] [address] 12/22/2024 10:00 AM EDT Office Visit Sleep Disorders [facility] [place] [phone] Corinne Carlin CRNP [address] [place] [address] 03/30/2025 3:30 PM EDT Office Visit Cardiology [address] [place] [address] Adrianna Huffman, [place] [address] [place] [address] Scheduled Procedures Name Priority Associated Diagnoses Date/Ti me COLONOSCOPY FLEXIBLE PROXIMA L DIAGNOSTIC Recall History of colonic polyps Health Maintenance Due Date Last Done Comments CKD PHOS USE SMARTSET 12541 1973 Cologuard 2000 Fecal Occult Blood Test [...] 04/18/2020, Additional history exists B-12 12/22/2024 12/23/2023, 120 11/2022, 01/21/2022, Additional history exists GFR 02/26/2025 08/29/2024, 0 09/2024, 08/15/2024, Additional history exists Pneumococcal Vaccine: 50+ Years (3 of 3 - PCV20 or PCV21) 05/23/2025 05/23/2020, 05/27/2006 Diabetic Eye Exam 06/30/2025 06/30/2024, , 06/30/2024, Additional history exists CKD HGB USE SMARTSET 02904 08/29/202508/29, 08/22/2024, 08/15/2024, Additional history exists Colonoscopy 07/10/2028 07/10/2023, 04/0 [...] Not on filedocumented as of this encounter Care Teams Health It Specialist Relationship Specialty Start Date End Date Oxana Willams MD [address] [place] [address] [place] [address] PCP - General Internal Medicine 08/17/23 documented as of this encounter
--- OUTSIDE RECORDS SUMMARY | 2024-09-29 03:36 | External Medical Summary ---
Author Name Unknown Address Unknown Organization [id number]:[facility] - [address] [place] [address] Laboratory Report Ordering Provider Test Date Status DOMMONICA 09/05/2024 05:30:00 Final Observation Date Value Abnormality Reference (Units ) Status Ammonia 09/05/2024 05:30:00 89 Above upper panic limits 11-35 (umol/L) Final Performing Location [facility] - [address] [place] [address]
--- OUTSIDE RECORDS SUMMARY | 2024-09-29 03:36 | External Medical Summary | Summary of Care ---
Author Name Unknown Organization [facility] Address [address] [facility] [place] [address] Phone [phone] Care Team Providers Care Cmv Driver Name Role Phone Oxana Willams MD Primary Care Provider [phone] [phone] Encounter Details Date Type Department Care Team (Late st Contact Info) Description 09/05/2024 Orders Only Lab Mobile Phlebotomy [facility] [address] [place] [address] Oxana Willams MD [address] [place] [address] [place] [address] HTN, goal below 140/90*; Heart failure due to congenital heart disease (HCC) Allergies Active Allergy Reactions Criticality Noted Date [...] as of this encounter (statuses as of 09/05/2024) Medications DIURETIC TITRATION PLANIndications:Aquiles ambriz diastolic congestive heart failure (HCC) If no improvement on day 3, contact heart failure managing provider or [facility] at home nurse case manager 1 Each 01/19/20 19 [...] 3 12/03/19 22 Active OneTouch Delica Plus [id number] ns:Type 2 diabetes mellitus with hemoglobin A1c [...] as of this encounter (statuses as of 09/05/2024) Active Problems Problem Noted Date Diagnosed Date [...] Assessment & Plan (10/16/2021 12:04 PM EDT): [facility] Call: Not taking diuretics 2/2 combination [...] above regimen Atherosclerotic heart diseas e of [place] coronary artery without angina pectoris 09/08/2019 Assessment [...] obesity with BMI of 45.0-49.9, adult 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 Is able to crab picker new medication today. Usually takes metolazone [...] 01/13/13 PSG -- RDI 5.3 [facility] - [place] Gastroesophageal reflux disease without esophagi tis 11/22/2010 Assessment & Plan (05/09/2022 7:26 AM EDT): Sx controlled with ompeprazole DYSLIPIDEMIA, GOAL LDL BELOW 100 06/26/2009 Overview (06/26/2009): Per Lipid Taxonomy. DM gastroparesis IBS (irritable bowel syndrome) documented as of this encounter (statuses as of 09/05/2024) Resolved Problems Problem Noted Date Diagnosed Date [...] as of this encounter (statuses as of 09/05/2024) Immunizations Name Administration Dates Next Due COVID-19 Whole Virus, Quispe Vac, 2-Dose Series (Skinkers) 09/03/2020,08/03/2020 COVID-19 mRNA, LNP-s, No Pre serve, 2-Dose Series (Zappedy) 09/02/2020,08/12/2020 HEP A - Hepatitis A (Adult [...] 06/01/2020 How often do you attend chur or gnosticism services? More than 4 times per year [...] Answer Date Recorded PHQ-2 Score 0 03/08/2019 [facility] [place] of Occupat ional Health - Occupational Stress [...] place to sleep or slept in a half-way (including now)? No 06/01/2020 Comments No Sex [...] Care Team (Late st Contact Info) Description 09/05/2024 5:00 AM EST Laboratory Lab Mobile Phlebotomy [facility] [facility] [place] [address] [place] [address] Arrived 09/08/2024 11:00 AM EST Imaging Radiology [address] [place] [phone] 11/03/2024 11:00 AM EDT Office Visit Ophthalmology, [facility] [address] [place] [address] Henri Beauchamp DO [address] [place] [address] 12/07/2024 12:00 PM EDT Office Visit Gastroenterology, [facility] [address] [place] [address] Sandhya Blair CRNP [address] [place] [address] 12/22/2024 10:00 AM EDT Office Visit Sleep Disorders Ctr [facility] [address] [place] [phone] Corinne Carlin CRNP [address] [place] [address] 03/30/2025 3:30 PM EDT Office Visit Cardiology [address] [place] [address] Adrianna Huffamn PA-C [address] [place] [address] Scheduled Orders Name Type Priority Associated Diagnoses Orde r Schedule COMPREHENSIVE METABOLIC PANEL Lab Routine HTN, goal below 140/90 Heart failure due to congenital heart disease (HCC) Expected: 09/05/2024, Expires: 09/05/2025 AMMONIA Lab Routine HTN, goal below 140/90 Heart failure due to congenital heart disease (HCC) Expected: 09/05/2024, Expires: 09/05/2025 CBC Lab Routine HTN, goal below 140/90 Heart failure due to congenital heart disease (HCC) Expected: 09/05/2024, Expires: 09/05/2025 Scheduled Procedures Name Priority Associated Diagnoses Date/Ti me COLONOSCOPY FLEXIBLE PROXIMA L DIAGNOSTIC Recall History of colonic polyps Health Maintenance Due Date Last Done Comments CKD PHOS USE SMARTSET 84357 1973 Cologuard 2000 Fecal Occult Blood Test 2000 Sigmoidoscopy 2000 Depression Monitoring 03/08/2020 03/08/2019 Diabetic Foot Exam 01/18/2021 01/19/2020, 0 03/08/2019, 02/18/2018, Additional history exists DTap/Tdap Vaccines (3 - Td or Tdap) 04/14/2021 04/14/2011, 07/16/2007 Zoster Vaccines (2 of 2) 02/05/2022 12/11/2021 Mammogram 02/26/2022 02/26/2021, 2 10/2019, 02/12/2018, Additional history exists Albumin/Creatinine Ratio 01/21/2023 022, 02/18/2018, 02/05/2017, Additional history exists HbA1c 01/21/2023 07/24/2022, 07/0 11/2021, 05/24/2021, Additional history exists COVID-19 Vaccine ( season) 2024 09/03/2020, 09/02/2020, 08/12/2020, Additional history exists Influenza Vaccine (FLU shot) (#1) 2024 05/06/2023, 05/24/2021, 04/18/2020, Additional history exists B-12 12/22/2024 12/23/2023, 12/0 11/2022, 01/21/2022, Additional history exists GFR 02/26/2025 08/29/2024, 02/0 09/2024, 08/15/2024, Additional history exists Pneumococcal Vaccine: 50+ Years (3 of 3 - PCV20 or PCV21) 05/23/2025 05/23/2020, 05/27/2006 Diabetic Eye Exam 06/30/2025 06/30/2024, , 06/30/2024, Additional history exists CKD HGB USE SMARTSET 22145 08/29/202508/29, 08/22/2024, 08/15/2024, Additional history exists Colonoscopy [...] goiter Thrombocytopenia (HCC) Thrombocytopenia, unspecified Atherosclerosis of [place] coronary artery without angina pectoris, unspecified whether [place] or transplanted heart Chronic diastolic heart failure [...] BMI of 45.0-49.9, adult (HCC) Morbid obesity HTN, goal below 140/90- Primary Unspecified essential hypertension Heart failure due to congenital heart disease (HCC) Heart failure, unspecified documented in this encounter Care Teams Cmv Driver Relationship Specialty Start Date End Date Oxana Willams MD [address] [place] [address] [place] [address] PCP - General Internal Medicine 08/17/23 documented as of this encounter
--- OUTSIDE RECORDS SUMMARY | 2024-09-29 03:36 | External Medical Summary | Summary of Care ---
Author Name Unknown Organization [facility] Address [address] [facility] [address] Phone [phone] Care Team Providers Care Rouge Sifter And Miller Name Role Phone Oxana Willams MD Primary Care Provider [phone] Reason for Visit * Reason Onset Date Comments Information 09/07/2024 Labs not good en ough to use IV contrast for CT Scan. Encounter Details Date Type Department Care Team (Late st Contact Info) Description 09/07/2024 Telephone Radiology [facility] 1st [facility] [address] [place] [phone] [...] managing provider or [facility] at home case fitter 1 Each 01/19/20 19 Active Medical Compression [...] 3 12/03/19 22 Active OneTouch Delica Plus [id number] ns:Type 2 diabetes mellitus with hemoglobin A1c [...] Plan (10/16/2021 12:04 PM EDT): [facility] Call: Not taking diuretics 2/2 [...] above regimen Atherosclerotic heart diseas e of [place] coronary artery without angina pectoris 09/08/2019 Assessment [...] with BMI of 45.0-49.9, adult 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 Is able to pickling solution maker new medication today. Usually takes metolazone [...] 01/13/13 PSG -- RDI 5.3 [facility] - [place] Gastroesophageal reflux disease without esophagi tis 11/22/2010 [...] COVID-19 Whole Virus, Quispe Vac, 2-Dose Series (Cloud Content) 09/03/2020,08/03/2020 COVID-19 mRNA, LNP-s, No Pre serve, 2-Dose Series ([facility]) 09/02/2020,08/12/2020 HEP A - Hepatitis A (Adult [...] often do you attend chur ch or confucianist services? More than 4 times per year 06/01/2020 Do you belong to any clubs o r organizations such as oriental orthodox groups, unions, fraternal or athletic groups, or [...] Answer Date Recorded PHQ-2 Score 0 03/08/2019 [facility] [place] of Occupat ional Health - Occupational Stress [...] place to sleep or slept in a mcc (including now)? No 06/01/2020 Comments No Sex [...] 09/07/2024 12:00 PM EST Spoke to Nursing Outpatient Phlebotomist for Indu. Indu is agreeable to the MRI as long it's in the Open MRI. Please order. Schedulers: Please call [phone], ext [phone] to schedule Open MRI * Telephone Encounter - Claudia Tomas CMA - 09/07/2024 11:22 AM EST Spoke with RN ornamental ironworking supervisor Marcia. She is going to check [...] 11/03/2024 11:00 AM EDT Office Visit Ophthalmology, [facility] [address] [place] [address] Henri Beauchamp, [address] [place] [address] 12/07/2024 12:00 PM EDT Office Visit Gastroenterology, [facility] [address] [place] [address] Sandhya Voss CRNP [address] [place] [address] 12/22/2024 10:00 AM EDT Office Visit Sleep Disorders Ctr [facility] [address] [place] [phone] Corinne Carlin CRNP [address] [place] [address] 03/30/2025 3:30 PM EDT Office Visit Cardiology [address] [place] [address] Adrianna Huffman, [place] [address] [place] [address] Scheduled Orders Name Type Priority Associated Diagnoses Orde r Schedule MRI LIVER W WO CONTRAST Medical Imaging Routine Hepatic cirrhosis, unspecified hepatic cirrhosis type, unspecified whether ascites present (HCC) Ordered: 09/07/2024 Scheduled Procedures Name Priority Associated Diagnoses Date/Ti me COLONOSCOPY FLEXIBLE PROXIMA L DIAGNOSTIC Recall History of colonic polyps Health Maintenance Due Date Last Done Comments CKD PHOS USE SMARTSET 06709 1973 Cologuard 2000 Fecal Occult Blood Test [...] Additional history exists CKD HGB USE SMARTSET 89294 09/05/202509/05, 08/29/2024, 08/22/2024, Additional history exists Colonoscopy [...] goiter Thrombocytopenia (HCC) Thrombocytopenia, unspecified Atherosclerosis of [place] coronary artery without angina pectoris, unspecified whether [place] or transplanted heart Chronic diastolic heart failure [...] Primary documented in this encounter Care Teams Rouge Sifter And Miller Relationship Specialty Start Date End Date Oxana Willams MD [address] [place] [address] [place] [address] PCP - General Internal Medicine 08/17/23 documented as of this encounter
--- OUTSIDE RECORDS SUMMARY | 2024-09-29 03:36 | External Medical Summary | Summary of Care ---
Author Name Unknown Organization [facility] Address [address] [facility] [address] Phone [phone] Care Team Providers Care Promotions Associate Name Role Phone Oxana Willams MD Primary Care Provider [phone] Reason for Visit * Reason Onset Date Comments Information 09/07/2024 Labs not good en ough to use IV contrast for CT Scan. 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 Is able to pickling grader new medication today. Usually takes metolazone on [...] 01/13/13 PSG -- RDI 5.3 [facility] - [place] Gastroesophageal reflux disease without esophagi tis 11/22/2010 [...] COVID-19 Whole Virus, Quispe Vac, 2-Dose Series ([employer] 09/03/2020,08/03/2020 COVID-19 mRNA, LNP-s, No Pre serve, 2-Dose Series ([employer]) 09/02/2020,08/12/2020 HEP A - Hepatitis A (Adult [...] often do you attend chur ch or restorationism services? More than 4 times per year 06/01/2020 Do you belong to any clubs o r organizations such as confucianism groups, unions, fraternal or athletic groups, or [...] Answer Date Recorded PHQ-2 Score 0 03/08/2019 [facility] [place] of Occupat ional Health - Occupational Stress [...] place to sleep or slept in a usp (including now)? No 06/01/2020 Comments No Sex [...] 09/07/2024 12:00 PM EST Spoke to Nursing Venetian Blind Washer for Indu. Indu is agreeable to the MRI as long it's in the Open MRI. Please order. Schedulers: Please call [phone], ext [phone] to schedule Open MRI * Telephone Encounter - Claudia Tomas CMA - 09/07/2024 11:22 AM EST Spoke with RN porcelain enameling supervisor Marcia. She is going to check [...] 11/03/2024 11:00 AM EDT Office Visit Ophthalmology, [facility] [address] [place] [address] Henri Beauchamp, [address] [place] [address] 12/07/2024 12:00 PM EDT Office Visit Gastroenterology, [facility] [address] [place] [address] Sandhya Voss CRNP [address] [place] [address] 12/22/2024 10:00 AM EDT Office Visit Sleep Disorders Ctr [facility] [address] [place] [phone] Corinne Carlin CRNP [address] [place] [address] 03/30/2025 3:30 PM EDT Office Visit Cardiology [address] [place] [address] Adrianna Huffman, MITCHE[place] [address] [place] [address] Scheduled Orders Name Type Priority Associated Diagnoses Orde r Schedule MRI LIVER W WO CONTRAST Medical Imaging Routine Hepatic cirrhosis, unspecified hepatic cirrhosis type, unspecified whether ascites present (HCC) Ordered: 09/07/2024 Scheduled Procedures Name Priority Associated Diagnoses Date/Ti me COLONOSCOPY FLEXIBLE PROXIMA L DIAGNOSTIC Recall History of colonic polyps Health Maintenance Due Date Last Done Comments CKD PHOS USE SMARTSET 07313 1973 Cologuard 2000 Fecal Occult Blood Test [...] Additional history exists CKD HGB USE SMARTSET 59761 09/05/202509/05, 08/29/2024, 08/22/2024, Additional history exists Colonoscopy [...] Primary documented in this encounter Care Teams Promotions Associate Relationship Specialty Start Date End Date Oxana Willams MD [address] [place] [address] [place] [address] PCP - General Internal Medicine 08/17/23 documented as of this encounter
--- OUTSIDE RECORDS SUMMARY | 2024-09-29 03:36 | External Medical Summary ---
Author Name Unknown Address Unknown Organization [facility] [address] [place] [address] Laboratory Report Ordering Provider Test Date Status MONICA FERNANDES 09/05/2024 05:30:00 Final Observation Date Value Abnormality Reference (Units ) Status BUN 09/05/2024 05:30:00 32 Above high normal 6-20 (mg/dL) Final Creatinine 09/05/2024 05:30:00 2.2 Above high normal 0.5-1.0 (mg/dL) Final Glomerular filtration rate/1.73 sq M.predicted [Volume Rate/Area] in Serum, Plasma or Blood by Creatinine-based formula (CKD-EPI) 09/05/2024 05:30:00 23 Below low normal >=60 (mL/min) Final eGFR is calculated based on the CKD-EPI 2020 equation. Sodium 09/05/2024 05:30:00 140 135-146 (m mol/L) Final Potassium 09/05/2024 05:30:00 4.4 3.5-5.1 (m mol/L) Final Cl 09/05/2024 05:30:00 106 98-107 (mm ol/L) Final CO2 09/05/2024 05:30:00 29 22-32 (mmo l/L) Final Anion gap 09/05/2024 05:30:00 5 Below low normal 7-1 5 (mmol/L) Final Glucose 09/05/2024 05:30:00 178 Above high normal 70 -120 (mg/dL) Final Albumin 09/05/2024 05:30:00 2.6 Below low normal 3.8 -5.0 (g/dL) Final AST (Aspartate aminotransferase) 09/05/2024 05:30:00 50 Above high normal 10-35 (U/L) Final Alk Phos 09/05/2024 05:30:00 145 Above high normal 35 -130 (U/L) Final Bilirubin, Total 09/05/2024 05:30:00 0.7 <=1 .2 (mg/dL) Final Calcium 09/05/2024 05:30:00 8.5 8.4-10.2 ( mg/dL) Final Protein 09/05/2024 05:30:00 5.9 Below low normal 6.0 -8.3 (g/dL) Final ALT (Alanine aminotransferase) 09/05/2024 05:30:00 36 Above high normal 10-35 (U/L) Final Performing Location [facility] [facility] [address]
--- OUTSIDE RECORDS SUMMARY | 2024-09-29 03:37 | External Medical Summary | Summary of Care ---
Author Name Unknown Organization [facility] Address [address] [place] [address] Phone [phone] Care Team Providers Care Art Display Maker Name Role Phone Oxana Willams MD Primary Care Provider [phone] Reason for Visit * Reason Onset Date Comments Advice 08/30/2024 Encounter Details Date Type Department Care Team (Late st Contact Info) Description 08/30/2024 Telephone Gastroenterology, [facility] [address] [facility] [address] [facility], Scheduling [address] [place] [address] Advice Allergies Active Allergy Reactions Criticality Noted Date [...] as of this encounter (statuses as of 08/30/2024) Medications DIURETIC TITRATION PLANIndications:Aquiles ambriz diastolic congestive heart failure (HCC) If no improvement on day 3, contact heart failure managing provider or [facility] at home case fitter 1 Each 01/19/20 19 Active Medical Compression Stockings Wear during the day, Take off at night 2 Each 10/06/19 21 Active CPAP every night at bedtime . Active OneTouch Verio In Vitro Strip (Glucose Blood)Indications: Type 2 diabetes mellitus with hemoglobin A1c goal of less than 8.5% ([facility]) Use to test blood sugar at least once a day DX e11.9 100 Strip 3 12/03/19 22 Active OneTouch Delica Plus [id number] ns:Type 2 diabetes mellitus with hemoglobin A1c goal of less than 8.5% ([facility]) Use as directed . Use to test [...] as of this encounter (statuses as of 08/30/2024) Active Problems Problem Noted Date Diagnosed Date [...] Assessment & Plan (10/16/2021 12:04 PM EDT): [facility] Call: Not taking diuretics 2/2 combination of [...] above regimen Atherosclerotic heart diseas e of [place] coronary artery without angina pectoris 09/08/2019 Assessment [...] obesity with BMI of 45.0-49.9, adult 01/2018 senior care (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 Usually takes metolazone [...] 01/13/13 PSG -- RDI 5.3 [facility] - [place] Gastroesophageal reflux disease without esophagi tis 11/22/2010 Assessment & Plan (05/09/2022 7:26 AM EDT): Sx controlled with ompeprazole DYSLIPIDEMIA, GOAL LDL BELOW 100 06/26/2009 Overview (06/26/2009): Per Lipid Taxonomy. DM gastroparesis IBS (irritable bowel syndrome) documented as of this encounter (statuses as of 08/30/2024) Resolved Problems Problem Noted Date Diagnosed Date [...] as of this encounter (statuses as of 08/30/2024) Immunizations Name Administration Dates Next Due COVID-19 Whole Virus, Quispe Vac, 2-Dose Series ([employer]) 09/03/2020,08/03/2020 COVID-19 mRNA, LNP-s, No Pre serve, 2-Dose Series ([employer]) 09/02/2020,08/12/2020 HEP A - Hepatitis A (Adult [...] any clubs o r organizations such as evangelical groups, unions, fraternal or athletic groups, or [...] Answer Date Recorded PHQ-2 Score 0 03/08/2019 [facility] [place] of Occupat ional Health - Occupational Stress [...] encounter Miscellaneous Notes * Telephone Encounter - Christy Gonzalez LPN - 08/30/2024 3:18 PM EST Left detailed message on Rachel's secure VM. * Telephone Encounter - Lora Joseph OSA - 08/30/2024 2:30 PM EST Rachel from [facility] calling regarding pt. She is wanting to know what the dose was changed to for pts Lactulose. Please return call. documented in this encounter Plan of Treatment Upcoming Encounters Date Type Department Care Team (Late st Contact Info) Description 09/08/2024 11:00 AM EST Imaging Radiology [facility] 1st [facility] [address] [place] [phone] 11/03/2024 11:00 AM EDT Office Visit Ophthalmology, [facility] [address] [place] [address] Henri Beauchamp DO [address] [place] [address] 12/07/2024 12:00 PM EDT Office Visit Gastroenterology, [facility] [address] [place] [address] Sandhya Blair CRNP [address] [place] [address] 12/22/2024 10:00 AM EDT Office Visit Sleep Disorders Ctr [facility] [address] [place] [phone] Corinne Carlin CRNP [address] [place] [address] 03/30/2025 3:30 PM EDT Office Visit Cardiology [address] [place] [address] Adrianna Huffman PA-C [address] [place] [address] Scheduled Procedures Name Priority Associated Diagnoses Date/Ti me COLONOSCOPY FLEXIBLE PROXIMA L DIAGNOSTIC Recall History of colonic polyps Health Maintenance Due Date Last Done Comments CKD PHOS USE SMARTSET 58179 1973 Cologuard 2000 Fecal Occult Blood Test 2000 Sigmoidoscopy 2000 Depression Monitoring 03/08/2020 03/08/2019 Diabetic Foot Exam 01/18/2021 01/19/2020, 0 03/08/2019, 02/18/2018, Additional history exists DTap/Tdap Vaccines (3 - Td or Tdap) 04/14/2021 04/14/2011, 07/16/2007 Zoster Vaccines (2 of 2) 02/05/2022 12/11/2021 Mammogram 02/26/2022 02/26/2021, 01/18, 02/12/2018, Additional history exists Albumin/Creatinine Ratio 01/21/2023 022, 02/18/2018, 02/05/2017, Additional history exists HbA1c 01/21/2023 07/24/2022, 11/2021, 05/24/2021, Additional history exists COVID-19 Vaccine ( season) 2024 09/03/2020, 09/02/2020, 08/12/2020, Additional history exists Influenza Vaccine (FLU shot) (#1) 2024 05/06/2023, 05/24/2021, 04/18/2020, Additional history exists B-12 12/22/2024 12/23/2023, 12/0 11/2022, 01/21/2022, Additional history exists GFR 02/26/2025 08/29/2024, 09/2024, 08/15/2024, Additional history exists Pneumococcal Vaccine: 50+ Years (3 of 3 - PCV20 or PCV21) 05/23/2025 05/23/2020, 05/27/2006 Diabetic Eye Exam 06/30/2025 06/30/2024, , 06/30/2024, Additional history exists CKD HGB USE SMARTSET 10600 08/29/202508/29, 08/22/2024, 08/15/2024, Additional history exists Colonoscopy [...] filedocumented as of this encounter Care Teams Art Display Maker Relationship Specialty Start Date End Date Oxana Willams MD [address] [place] [address] [place] [address] PCP - General Internal Medicine 08/17/23 documented as of this encounter
--- OUTSIDE RECORDS SUMMARY | 2024-09-29 03:37 | External Medical Summary | Summary of Care ---
Author Name Unknown Organization [facility] Address [address] [place] [address] Phone [phone] Care Team Providers Care Curriculum Advisory Teacher Name Role Phone Oxana Willams MD Primary Care Provider [phone] Reason for Referral * Precert (Within 10 days (routine)) - Authorized Specialty Diagnoses / Procedures Referred By Contac t Referred To Contact Radiology Diagnoses Other cirrhosis of liver (HCC) Procedures CT LIVER 4-PHASE W WO IV CONTRAST - WO ORAL CONT Sandhya Blair CRNP [address] [place] [address] Phone: tel: fax: Referral ID Status Reason Start Date Expiration Date V isits Requested Visits Authorized [id number] Authorized 08/30/2024 999 999 Reason for Visit * Reason Comments Follow Up Follow up IBS-C/GERD . Hx cirrhosis. Pt states bowels re moving ok. GERD stable on PPI. Occasional dysphagia to solids. Encounter Details Date Type Department Care Team (Late Contact Info) Description 08/30/2024 12:00 PM EST Office Visit Gastroenterology, [facility] [address] [place] [id number] Sandhya Blair CRNP [address] [place] [address] Other cirrhosis of liver (HCC)*; Generalized edema; History of colonic polyps; Gastroesophageal reflux disease without esophagitis Allergies Active Allergy Reactions Criticality Noted Date [...] failure managing provider or [facility] in 1 Each 01/19/20 19 Active Medical Compression [...] 3 12/03/19 22 Active OneTouch Delica Plus [id number] ns:Type 2 diabetes mellitus with hemoglobin A1c [...] bedtime. 240 mL 3 08/30/19 25 Active Lactulose 10 GM/15ML Oral Solution (Constulose) Take 30 mL by mouth in the morning and 30 mL at noon and 30 mL before bedtime. 240 mL 3 12/22/19 24 025 Discontin ued(Refil l) documented as of this encounter (statuses as of 08/30/2024) Active Problems Problem Noted Date Diagnosed Date Constipation 05/21/2022 Assessment & Plan (05/21/2022 4:37 PM EDT): Passing gas today, no distress. No BM since last . Advised to use glycerin supp tonight. She [...] Assessment & Plan (10/16/2021 12:04 PM EDT): [facility] Call: Not taking diuretics 2/2 combination [...] above regimen Atherosclerotic heart diseas e of [place] coronary artery without angina pectoris 09/08/2019 Assessment [...] since 10/15. 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 Usually takes metolazone on [...] 7 cwp 01/13/13 PSG -- RDI 5.3 [facility] - Bhupinder Gastroesophageal reflux disease without esophagi tis 11/22/2010 [...] colon 09/17/200901/2018 Overview (10/09/2009): sellile serrated adenoma, [facility], f/u in colonoscopy in 5 yrs Type [...] COVID-19 Whole Virus, Quispe Vac, 2-Dose Series (ScheduleThing) 09/03/2020,08/03/2020 COVID-19 mRNA, LNP-s, No Pre serve, 2-Dose Series (FanIQ) 09/02/2020,08/12/2020 HEP A - Hepatitis A (Adult [...] often do you attend chur ch or jain services? More than 4 times per year 06/01/2020 Do you belong to any clubs o r organizations such as zoroastrian groups, unions, fraternal or athletic groups, or [...] Answer Date Recorded PHQ-2 Score 0 03/08/2019 [facility] - Occupational Stress [...] place to sleep or slept in a long-term (including now)? No 06/01/2020 Comments No Sex and Gender Information Value Date Recorded Sex Assigned at Not on file Legal Sex Female 5:27 AM EST Gender Identity Not on file Sexual Orientation Not on file Occupation Industry Job Start Date Job End Date Unemployed Not on file Not on file Not on file documented as of this encounter Last Filed Vital Signs Vital Sign Reading Time Taken Comments Blood Pressure 110/64 08/30/2024 11:38 AM EST Pulse - - Temperature - - Respiratory Rate - - Oxygen Saturation - - Inhaled Oxygen Concentration - - Weight 129.3 kg (285 lb) 08/30/2024 11:38 AM EST Height 165.1 cm (5' 5") 08/30/2024 11:38 AM EST Body Mass Index 47.43 08/30/2024 11:38 AM EST documented in this encounter Functional Status * Does this person have serious difficulty walking or climbing stairs? Answer Date of Assessment Author Yes 06/01/2020 11:39 AM EST documented as of this encounter Progress Notes * Sandhya Blair CRNP - 08/30/2024 11:30 AM EST DATE OF SERVICE: 08/30/24 REFERRING PHYSICIAN: Gilberto Hart MD CC: F/U NAFLD cirrhosis. HPI: 02/24/17 - Indu Carbone is a 61 year old female here for SMALL cirrhosis f/u. She was previously followed by MISAEL Hernandez. Recently admitted at [facility] from 01/31/17 to 02/02/17 with volume overload. Had gone to ED w c/o CP, SOB, gained 30 lbs within 2 weeks and felt legs are very swollen. Seen by Cardiology service. Her Metalozone diuretic was DC'd, but maintained on Spironolactone 100mg dailyand Lasix 40mg BID. Current weight is 277lbs, reports usually in 260s range. She is compliant w hercurrent diuretics as well as low salt diet. Wellman leg swelling is much improved and doesn't have anyissues w abdominal distension/discomfort. Denies CP or SOB. Reviewed labs since DC'd: Results for INDU CARBONE ( ) as of 02/24/2017 13:40 Ref. Range 02/05/2017 12:00 02/17/2017 16:21 02/24/2017 09:50 CBC/DIFF Unknown Rpt (A) WBC Latest Ref Range: 4.00 - 10.80 K/uL 7.37 RBC Latest Ref Range: 3.85 - 5.15 M/uL 5.45 (H) HGB Latest Ref Range: 12.0 - 15.3 g/dL 16.1 (H) HCT Latest Ref Range: 36.0 - 45.2 % 47.3 (H) PLATELET COUNT Latest Ref Range: 140 - 400 K/uL 155 HEMOGLOBIN, A1C Latest Ref Range: 4.0 - 6.4 % 7.1 (H) CREATININE, RD URINE Latest Units: mg/dL 116 BUN Latest Ref Range: 6 - 20 mg/dL 26 (H) CREATININE Latest Ref Range: 0.5 - 1.0 mg/dL 0.8 E GLOM FILT RATE Latest Ref Range: >60 >60.0 SODIUM Latest Ref Range: 135 - 146 mmol/L 136 POTASSIUM Latest Ref Range: 3.5 - 5.1 mmol/L 4.3 CHLORIDE Latest Ref Range: 98 - 107 mmol/L 95 (L) CO2 Latest Ref Range: 22 - 32 mmol/L 27 GLUCOSE Latest Ref Range: 70 - 120 mg/dL 209 (H) CALCIUM Latest Ref Range: 8.4 - 10.2 mg/dL 9.9 ANION GAP Latest Ref Range: 7 - 15 mmol/L 14 ALBUMIN Latest Ref Range: 3.8 - 5.0 g/dL 3.8 ALKALINE PHOSPHATASE Latest Ref Range: 0 - 153 U/L 77 ALT Latest Ref Range: 10 - 35 U/L 41 (H) AST Latest Ref Range: 10 - 35 U/L 55 (H) BILIRUBIN Latest Ref Range: 0 - 1.2 mg/dL 0.7 SODIUM ISTAT Latest Ref Range: 135 - 146 mmol/L 139 POTASSIUM ISTAT Latest Ref Range: 3.5 - 5.0 mmol/L 4.5 CHLORIDE ISTAT Latest Ref Range: 100 - 111 mmol/L 101 BUN ISTAT Latest Ref Range: 10 - 20 mg/dL 8 (L) GLUCOSE ISTAT Latest Ref Range: 70 - 120 mg/dL 261 (H) CALCUIM,IONIZD ISTAT Latest Ref Range: 1.13 - 1.32 mmol/L 1.23 CREATININE ISTAT Latest Ref Range: 0.5 - 1.2 mg/dL 0.6 ANION GAP POS ISTAT Latest Ref Range: 10 - 20 mmol/L 16 CO2 ISTAT Latest Ref Range: 22 - 32 mmol/L 28 PROTEIN Latest Ref Range: 6.0 - 8.3 g/dL 7.8 SURGICAL PATHOLOGY Unknown Rpt FREE T4 REFLEXIVE Latest Ref Range: 0.9 - 1.7 ng/dL NOT APPLICABLE TSH Latest Ref Range: 0.27 - 4.2 uIU/mL 2.27 TSH W/FT4 IF TSH IS INDICATED Unknown Rpt ALBUMIN / CREATININE RATIO, URINE Unknown Rpt CHEM. ONLY, ISTAT Unknown Rpt (A) 09/18/17: Pt here for f/u. Cancelled and No Show several appts last year citing reason as having totake care of her mother. Her mother recently . Pt was admitted in [facility] in July for CHF exacerbation, diuretics increased to Lasix 80mg BID , kept on Spironolactone 100mg daily. She saidbeen also eating food w/o salt or seasoning. She had lost over 20lbs which she gained during her CHD exacerbation. Also denies arms, leg swelling, abd distension. Main complaint today is difficulty swallowing meats, breads. Wellman they are sticking to lower esophageal area causing epigastric pain till food passes. Denies reflux, heartburn. Still on Prilosec 20mg daily. Is having intermittent constipation, and hematochezia when hard stool passes. On Miralax 1 packet daily. Of note, CT scan in June showed increasing mesorenal/mesocaval increasing varices. Been seen byDr. Lee ([facility]) who plan for transjugular cath w liver bx and portal pressure measurement on 09/24/17. 01/21/18: Pt here for f/u. Since last seen had transjugular cath with liver bx and portal measurement by Dr. Newell ([facility]) on 09/24/17: Patent right internal jugular vein. Patent middle and right hepatic veins without focal stenosis. Measured portosystemic gradient of 19 mmHg. Core liver biopsy specimens obtained via transjugular approach as above. Liver biopsy showed cirrhosis in setting of steatohepatitis. She did have scattered plasma cells onthe liver biopsy. Iron stains negative for increased iron deposits. She also had EGD on 09/29/17 for dysphagia. No signs of explain dysphagia but esophagus dilated to 54Fr. + portal hypertensive gastropathy. No specimen collected. She denies any fever, chills, CP, SOB. She has not trouble swallowing but feels that food will sit on epigastric area and "hang there for a while". She denies any n/v. Does feel abd is getting more distended. She is also having issues w constipation, bloating, straining. Not on Miralax now. Had previously leg swelling but better. 06/10/19; Pt seen for f/u cirrhosis. She had cancelled couple of appts, reports between mother's and taking care of demented , cannot find time to care for herself. She is reporting nausea, vomiting, upper abd pain as soon as she eats or even swallow her meds. She is only taking her insulin, Furosemide and "another water pill twice daily". She cannot tell me which is the other diuretics. She reports hx of stomach ulcer, worried she may have another one. She denies jaundice, or increased abd distension, increased leg swelling. Does admit constipation, tried Miralax even 3x a day but states still having trouble. Denies rectal bleeding. She lost about 5lbs since last month. 07/08/19: Pt returns for f/u. Had CT abd/pelvis, and EGD. CT unrevealing as to etiology of her abd pain. She was found to have gastritis w/o Hpylori on EGD. She is feeling better, able to eat and started taking her meds again. Not having as much abd pain, n/v. Is c/o trouble moving bowels and feeling bloated. She tried taking Miralax and Metamucil w/o much relief. 07/31/20: Pt returns for f/u cirrhosis management also c/o chocking on foods. She is currently on several diuretics, and IV lasix therapy for volume overload issues, Right HF. She is noticing less leg edema but c/o some abd distension. Had limited u/s on 07/27/2020 for ascites check, results pending.She denies jaundice, CP, increased SOB from baseline. She is c/o epigastric area discomfort, mild nausea, and reflux/regurgitation. Drinking liquids make her feel full very easily and caused more bloating in stomach but denies actually chocking or coughing food up because they get stuck. Bowels move very slightly, hard stools w occasional hematochezia. 10/30/20: Pt c/o joint aches and BSG being high in 300s. Working w PCP on med adjustments. Is also c/o constipation but not taking bowel regimen. Denies rectal bleeding, n/v, abd pain. 02/01/21: Pt reports recently had increased edema on legs but improving w current diuretics. She ishaving a hard time swallowing foods and pills justin her large potassium pills. She denies abd pain, n/v. No rectal bleeding or dark tarry stools. BM moves 2x a day 05/24/21: Pt had COVID19 infection 1 month ago. Has residual fatigue and body aches. She had to cancel last EGD due to transportation issue. She reports having issues w heartburn and food/pills getting stuck on lower esophagus still. No n/v, abd pain. Bowels move daily w/o blood in stools. No leg edema. Telephonic visit 10/03/22: After connecting to the patient via telephone, the patient was identified by name and date of . Patient was then informed that this was a telephone call only visit. The patient agreed to participate. Visit Disposition: Routine follow-up. Total call duration was 25 minutes. I last saw pt at [facility] in July as consultation for AMS. She had a R occipital subacute ischemic stroke at that time. No f/u with Neurology after DC. She is having trouble w R eye vision and some generalized weakness, had a fall 2 weeks ago. Currently residing in [place]. She was also having trouble with hepatic encephalopathy, not taking meds as prescribed at home. But currently at [place], meds being administered by nursing staff. She feels overall safer there. She denies fever, chills, CP,SOB, abd pain, n/v. Is not having breakthrough heartburn/reflux but having some trouble swallowing but no sami chocking or aspiration. Does have some swelling in lower abd and legs, on diuretics. No weeping leg wounds. Having loose BM 4-5x a day. No rectal bleeding. She is currently on isolation for 3rd bout of COVID infection. 01/22/23: Patient reports that she is having increased nausea and sometimes regurgitation. Afraid that she might choke and aspirate on her food. Sometimes feels that she has epigastric pressure aftereating. She notices that symptoms are worse since she started back on Ozempic injections. Was on this medication years ago and had similar symptoms as well. Denies any chest pain, shortness of breath, there is mild right lower quadrant abdominal discomfort but not pain. Her bowels move between 2 to3 times a day denies any black tarry stools or rectal bleeding. Denies any increased leg edema. 06/03/23 - She is having increased abdominal distension and bilateral leg edema R>L. 40lbs increase in weight since 10/2022. She is having redness in her R leg and discomfort. Having 2-3 Bms daily,no rectal bleeding. No n/v. Noted that she is not on a low salt diet at longterm. Current diuretic: Torsemide 40mg daily + Spironolactone 25mg daily. 06/23/23: Pt reports that her abdomen and leg feels less swollen. However she feels quite weak. Sometimes shaky. Denies chest pain, additional shortness of breath, abdominal pain, nausea or vomiting.Bowels move about 3 times a day without rectal bleeding. States had right lower extremity Doppler at [place] and was told that she did not have any blood clots. 08/06/23: Pt's diuretic is decreased to Spironolactone 50mg daily + Torsemide 20mg daily. 6lb weight gain from last visit. She is noticing increased swelling on legs R>L. Having R knee and hip pain, L shoulder pain. Been DC'd from physical therapy. No n/v. Is having 3-4 loose stools daily w incontinence. 12/22/23: She gained 20lbs since last visit. Is noticing increase swelling on legs R>L, and lower abd area. Denies CP, SOB, + mild nausea wo vomiting. Only diuretic she is on is Torsemide 20mg daily. She is having multiple loose stools daily, reports sores on buttocks. Lactulose dosed 40g tid. No rectal bleeding. 01/07/24: No ascites on abd u/s. Still having persistent leg edema and anasarca. Weight down 2lbs since last visit. 08/30/24: Pt is c/o persistent leg and lower abd swelling, worse on RLE and RLQ abd area. Is not walking, using WC to ambulate. Is having mild dysphagia but does not want to have repeat EGD with possible dilation at this time. More regurgitation, nausea but no vomiting. Bowels move about once a day. Past Medical History: Diagnosis Date Anxiety Benign neoplasm of colon 09/2009 sellile serrated adenoma, [facility], f/u in colonoscopy in 5 yrs BMI 40.0-44.9, adult (HCC) Cancer (HCC) Cardiac dysrhythmia, unspecified 2001 cardiac cath done and it was normal Cardiac murmur Chronic diastolic congestive heart failure (HCC) 02/10/2017 Chronic kidney disease Congestive heart failure (HCC) Crohn's disease (HCC) Depression 06/17/2018 unspec Diaphragmatic hernia 2001 Diverticular disease DM type 2, goal A1c below 7 1991 Dyskinesia of esophagus on baclofen Dysphagia 11/22/2010 ICD-10 update of inactive term Dysphagia Edema Fatty liver Gastroparesis Generalized anxiety disorder H. pylori infection HTN, goal below 140/90 Hyperlipidemia LDL goal < 100 IBS (irritable bowel syndrome) Leg pain Other organic sleep disorders Sleep apnea Sleep apnea, obstructive Temporomandibular joint disorders, unspecified Unspecified urinary incontinence Unspecified vitamin D deficiency Family History Problem Relation Name Age of Onset Cancer Mother Breast Breast Cancer Mother Lung Disorder Mother COPD, Still living 78 Diabetes Father at 87 Thyroid Disorder Sister guillaume Cancer Sister zeus ovarian Cervical Cancer Sister zeus Amblyopia Son Butch Prostate cancer Uncle (Unspecified) Blindness Grandmother (Maternal) Cervical Cancer Niece Gifty Past Surgical History: Procedure Laterality Date ABD / PELVIS CT WITH IV CONTRAST (NO PO) 09/25/2009 essentially normal, [facility] ARTHROPLASTY KNEE TOTAL 2008 right, Dr. Arias COLONOSCOPY 1976 cysts in bowels and treated with RT COLONOSCOPY 09/26/2009 sellile serrated adenoma, [facility], f/u in colonoscopy in 5 yrs COLONOSCOPY, DIAGNOSTIC (RECTUM) 07/21/2013 COLONOSCOPY FLEXIBLE PROXIMAL DIAGNOSTIC performed [facility] Lu[facility]att [facility] COLONOSCOPY, DIAGNOSTIC (RECTUM) 10/18/2018 adenomatous polyp, fair prep, repeat 3 yrs/[facility] COLONOSCOPY, DIAGNOSTIC (RECTUM) N/A 07/10/2023 diverticulosis/recall 5 years/[place]onoscopy/[place] [facility] CHEST/ABDOMEN W CONTRAST 10/22/2012 possible esophagitis, no naeurysm or other abnormality CXR 2 VIEWS AP/PA & LATERAL 09/25/2009 mild cardiomegaly EGD, FLEXIBLE, DIAGNOSTIC 11/02/2015 mild inflammation, repeat 1.5 yrs/[facility] EGD, FLEXIBLE, DIAGNOSTIC 09/29/2017 portal hypertensive gastropathy, repeat 1.5 yrs/[facility] EGD, FLEXIBLE, DIAGNOSTIC 10/18/2018 portal hypertensive gastropathy, repeat 1.5 yrs/[facility] EGD, FLEXIBLE, DIAGNOSTIC 06/28/2019 mild gastric irritation on bx / [facility] EGD, FLEXIBLE, DIAGNOSTIC N/A 07/10/2023 normal/EGD/[place] EGD, FLEXIBLE, W/BIOPSY 09/22/[address] kumar EGD, FLEXIBLE, W/DILATE STRICTURES 09/2012 EGD, W/ENDOSCOPIC US 11/02/2015 fatty liver/[facility] EKG 09/25/2009 Normal ECG, [facility] FLUORO SWALLOWING FUNCTION W VIDEO CINE 04/01/2011 esophageal dysmotility LEFT HEART CATHETERIZATION 2001 normal LENS EXTRACTION, PHACOFRAGMENTATION Bilateral Dr. Caputo 3 years ago per pt. MISCELLANEOUS ORDER ([facility] ONLY) 1982 bladder tack up AL GASTRIC EMPTYING STUDY LIQUID 09/25/2009 significant gastric emptying delay, [facility] NUCLEAR SCANS, CARDIAC BLOOD POOL 09/01/2012 normal, no wall motion abnormalities, EF 72% OTHER (INFORMATION) ACT 112 SIGNED 08/05/24 DR. BEAUCHAMP REMOVAL OF APPENDIX 1981 REMOVE GALLBLADDER 2001 bowel disease treated with antibiotics REMOVE GALLBLADDER REMOVE OVARIAN TUMOR W/HYSTERECTOMY 1982 complete hysterectomy and b/l ovaries SPIROMETRY B/A BRONCHODILATOR 12/26/2008 mild obstructive disease US ABDOMEN LIMITED 09/25/2009 fatty liver, [facility] Social History Tobacco Use Smoking status: Never Smokeless tobacco: Never Vaping Use Vaping status: Never Used Substance Use Topics Alcohol use: No Drug use: No Review of patient's allergies indicates: Allergen Reactions Ciprofloxacin Other reaction(s): MOUTH BLISTERS, HIVES Morphine Other reaction(s): HIVES, "DEATHLY ILL", THROWS UP Oxycodone rash/vomiting Other reaction(s): HIVES, VOMITING Penicillin V Other reaction(s): HIVES Clindamycin Itching Resolved with Benadryl Cipro [Ciprofloxacin] Swelling of lips, hives Keflex [Cephalexin] Rash Penicillins rash Current Outpatient Medications Medication Sig Dispense Refill DIURETIC TITRATION PLAN If no improvement on day 3, contact heart failure managing provider or [facility] in 1 Each 0 Medical Compression Stockings Wear during the day, Take off at night 2 Each 0 CPAP every night at bedtime . OneTouch Verio In Vitro Strip (Glucose Blood) Use to test blood sugar at least once a day DX e11.9 100 Strip 3 OneTouch Delica Plus [id number] Use as directed . Use to test blood sugar once a day DX e11.9 100 Each 3 Ondansetron 4 MG Oral Tablet Disintegrating (Zofran) Place 1 Tablet (4 mg) on tongue every 8 hours as needed for Nausea. dissolve on tongue. 20 Tablet 0 Ascorbic Acid 500 MG Oral Tablet Take 1 Tablet by mouth daily. Refresh Tears 0.5 % Ophthalmic Solution 1 Drop 4 times a day as needed. Vitamin D3 25 MCG (1000 UT) Oral Tablet (Vitamin D3) Take 1 Tablet by mouth in the morning. Clotrimazole 1 % External Cream (Lotrimin) Apply topically daily as needed on abdominal folds FreeStyle Courtney 2 Sensor Use as directed. Diclofenac Sodium 1 % External Gel (Voltaren) Apply a small amount topically four times daily as needed Glucagon Emergency 1 MG Injection Kit NovoLOG 100 UNIT/ML Injection Solution Inject under the skin three times a day before meals. Inject5 units with breakfast, 20 units with lunch, 30 units with supper NovoLIN N FlexPen 100 UNIT/ML Subcutaneous Suspension Pen-injector Inject under the skin daily 50 units in the morning and 35 units in the evening Lidocaine Pain Relief 4 % External Patch Place 1 Patch topically on the skin daily. Omeprazole 20 MG Oral Capsule Delayed Release (PriLOSEC) Take 1 Capsule by mouth in the morning. Acetaminophen ER 650 MG Oral Tablet Extended Release Take 1 Tablet by mouth every 4 hours as needed. Fleet Enema 7-19 GM/118ML Rectal Enema Administer 1 Enema into the rectum once. Stomahesive Protective Powder Use as directed. Nitroglycerin 0.3 MG Sublingual Tablet Sublingual (Nitrostat) Dissolve 1 tablet under the tongue once if needed for esophageal spasm (Patient not taking: Reported on 08/18/2024) [facility] Nasal Mist 0.9 % Nasal Aerosol Solution (Saline) Administer into nostril. Premarin 0.625 MG/GM Vaginal Cream Lactulose 10 GM/15ML Oral Solution (Constulose) Take 30 mL by mouth in the morning and 30 mL at noon and 30 mL before bedtime. 240 mL 3 buPROPion HCl ER (SR) 150 MG Oral Tablet Extended Release 12 Hour (Wellbutrin SR) Take 1 Tablet by mouth every morning. BD AutoShield Duo 30G X 5 MM Mirtazapine 15 MG Oral Tablet (Remeron) (Patient not taking: Reported on 08/18/2024) traMADol HCl 50 MG Oral Tablet (Ultram) Calamine-Zinc Oxide 8-8 % External Lotion Apply topically to affected area. Apply to right lower buttocks rifAXIMin 550 MG Oral Tablet (Xifaxan) Take 1 Tablet by mouth in the morning and 1 Tablet before bedtime. Zinc Oxide 40 % External Ointment (Desitin/Evon) Apply topically to affected area as needed for Dry Skin. Apply to Labia Spironolactone 25 MG Oral Tablet (Aldactone) 1 tablet on Thu and Torsemide 20 MG Oral Tablet (Demadex) Take 1 tablet 6 days per week (hold on Thursday) Nadolol 20 MG Oral Tablet (Corgard) Take 0.5 Tablets by mouth in the morning and 0.5 Tablets beforebedtime. Hold if systolic BP is < 100 or pulse is < 60. No current facility-administered medications for this visit. REVIEW OF SYSTEMS: See HPI above; All other findings negative. EXAM: Filed Vitals: 08/30/24 1138 BP: 110/64 Weight: 129.3 kg (285 lb) Height: 1.651 m (5' 5") GENERAL: Well developed and well nourished in no acute distress. SKIN: No rashes, ulcers, jaundice or spider angiomata. HEENT: Normocephalic, sclera clear. NECK: Supple, trachea midline, no JVD. LUNGS: Clear to auscultation bilaterally, no respiratory distress or accessory muscles used. HEART: Regular rate & rhythm, + grade 3/6 murmurs and no gallops. ABDOMEN: Normal bowel sounds, soft and non tender. Tissue anasarca on lower abd. EXTREMITIES: No palmar erythema, +1 pitting edema on RLE, non pitting edema on LLE. Legs wrapped. NEURO: No lateralizing findings. Sensory/Motor grossly normal. + asterixis ASSESSMENT AND PLAN: Indu Carbone is a 69 year old female w hx of gastroparesis, SMALL cirrhosis (MELD 18) w complications of portal hypertensive gastropathy, edema (may also be contributed by CHF, renal disease). On transjugular liver bx, plasma cells also noted ? Autoimmune liver disease.R occipital ischemic stroke in July 2022, hepatic encephalopathy requiring hospitalization at [facility]. Currently at [facility]. Ongoing issues with volume status balance. - Torsemide to 20mg 6x a week, Spironolactone 25mg 2x a week. Will discuss with Cardiology on diuretic dose tiration. - Increase Lactulose to 30g tid ; continue Xifaxan 550mg BID - MELD labs q3-6 months - Obtained RAOUL, AMA, anti smooth muscle antibody, SPEP to r/o autoimmune liver disease. -> mildly elevated Anti smooth muscle antibody , & gamma globulin 1.9. - Hep A immunity: completed - Hep B immunity: completed - HCC screening [id number]; obtain CT liver as US may not be sensitive given her body habitus. - Encouraged to abstain from ETOH, illicit drugs, APAP no more than 2g daily. - Low salt (2g), heart healthy/low fat diet ; encouraged weight loss. - Pt wants to defer repeat EGD for possible esophageal dilation and esophageal varices screening. Colonoscopy recall in 2027 I spent a total of 30 minutes on the date of service in review of patient's record, and previously obtained information in person and appropriate medical visit, discussion and education of plan, withpatient and/or caregiver, placing orders for tests/referral/procedures as medically necessary and documentation of pertinent clinical information in patient's medical records for their visit today. RETURN TO CLINIC: 3 months Philippe Gong Gastroenterology, [facility] documented in this encounter Nursing Notes * Claudia Tomas CMA - 08/30/2024 11:38 AM EST Chief Complaint Patient presents with Follow Up Follow up IBS-C/GERD. Hx cirrhosis. Pt states bowels re moving ok. GERD stable on PPI. Occasional dysphagia to solids. documented in this encounter Plan of Treatment Upcoming Encounters Date Type Department Care Team (Late st Contact Info) Description 09/08/2024 11:00 AM EST Imaging Radiology [facility] 1st Floor, [place] [address] [place] [phone] 11/03/2024 11:00 AM EDT Office Visit Ophthalmology, [facility] [address] [place] [address] Henri Beauchamp DO [address] [place] [address] 12/07/2024 12:00 PM EDT Office Visit Gastroenterology, [facility] [address] [place] [address] Sandhya Blair CRNP [address] [place] [address] 12/22/2024 10:00 AM EDT Office Visit Sleep Disorders Ctr [facility] [address] [place] [phone] Corinne Carlin CRNP [address] [place] [address] 03/30/2025 3:30 PM EDT Office Visit Cardiology [address] [place] [address] Adrianna Huffman PA-C [address] [place] [address] Scheduled Orders Name Type Priority Associated Diagnoses Orde r Schedule ALPHA-FETOPROTEIN TUMOR MARKER Lab Routine Other cirrhosis of liver (HCC) Expected: 08/30/2024, Expires: 08/30/2025 PT INR Lab Routine Other cirrhosis of liver (HCC) Expected: 08/30/2024, Expires: 08/30/2025 CT LIVER 4-PHASE W WO IV CONTRAST - WO ORAL CONT Medical Imaging Routine Other cirrhosis of liver (HCC) Ordered: 08/30/2024 Scheduled Procedures Name Priority Associated Diagnoses Date/Ti me COLONOSCOPY FLEXIBLE PROXIMA L DIAGNOSTIC Recall History of colonic polyps Health Maintenance Due Date Last Done Comments CKD PHOS USE SMARTSET 01947 1973 Cologuard 2000 Fecal Occult Blood Test [...] Additional history exists CKD HGB USE SMARTSET 89715 08/29/202508/29, 08/22/2024, 08/15/2024, Additional history exists Colonoscopy 07/10/2028 07/10/2023, 040 07/2018, 07/21/2013, Additional history exists Colorectal Cancer [...] goiter Thrombocytopenia (HCC) Thrombocytopenia, unspecified Atherosclerosis of [place] coronary artery without angina pectoris, unspecified whether [place] or transplanted heart Chronic diastolic heart failure [...] BMI of 45.0-49.9, adult (HCC) Morbid obesity Other cirrhosis of liver (HCC)- Primary Generalized edema Edema History of colonic polyps Personal history of colonic polyps Gastroesophageal reflux disease without esophagitis Esophageal reflux documented in this encounter Care Teams Curriculum Advisory Teacher Relationship Specialty Start Date End Date Oxana Willams MD [address] [place] [address] [place] [address] PCP - General Internal Medicine 08/17/23 documented as of this encounter
--- OUTSIDE RECORDS SUMMARY | 2024-09-29 03:37 | External Medical Summary ---
Author Name Unknown Address Unknown Organization K01:[facility] [place] [facility] [place] [address] [place] [address] Laboratory Report Ordering Provider Test Date Status MONICA FERNANDES 08/31/2024 05:23:00 Final Observation Date Value Abnormality Reference (Units ) Status Alpha-Fetoprotein 08/31/2024 05:23:00 3.4 0. 0-8.3 (ng/mL) Final Performing Location [facility] [place] [address] [place] [address]
--- OUTSIDE RECORDS SUMMARY | 2024-09-29 03:37 | External Medical Summary ---
Author Name Unknown Address Unknown Organization [id number]:[facility] [place] [facility] - [address] [place] [address] Laboratory Report Ordering Provider Test Date Status MONICA FERNANDES 08/29/2024 05:13:00 Final Observation Date Value Abnormality Reference (Units ) Status BUN 08/29/2024 05:13:00 37 Above high normal 6-20 (mg/dL) Final Creatinine 08/29/2024 05:13:00 2.3 Above high normal 0.5-1.0 (mg/dL) Final Glomerular filtration rate/1.73 sq M.predicted [Volume Rate/Area] in Serum, Plasma or Blood by Creatinine-based formula (CKD-EPI) 08/29/2024 05:13:00 23 Below low normal >=60 (mL/min) Final eGFR is calculated based on the CKD-EPI 2020 equation. Sodium 08/29/2024 05:13:00 141 135-146 (m mol/L) Final Potassium 08/29/2024 05:13:00 5.2 Above high normal 3. 5-5.1 (mmol/L) Final Cl 08/29/2024 05:13:00 107 98-107 (mm ol/L) Final CO2 08/29/2024 05:13:00 28 22-32 (mmo l/L) Final Anion gap 08/29/2024 05:13:00 6 Below low normal 7-1 5 (mmol/L) Final Glucose 08/29/2024 05:13:00 173 Above high normal 70 -120 (mg/dL) Final Albumin 08/29/2024 05:13:00 2.5 Below low normal 3.8 -5.0 (g/dL) Final AST (Aspartate aminotransferase) 08/29/2024 05:13:00 72 Above high normal 10-35 (U/L) Final Alk Phos 08/29/2024 05:13:00 144 Above high normal 35 -130 (U/L) Final Bilirubin, Total 08/29/2024 05:13:00 0.6 <=1 .2 (mg/dL) Final Calcium 08/29/2024 05:13:00 8.9 8.4-10.2 ( mg/dL) Final Protein 08/29/2024 05:13:00 5.7 Below low normal 6.0 -8.3 (g/dL) Final ALT (Alanine aminotransferase) 08/29/2024 05:13:00 46 Above high normal 10-35 (U/L) Final Performing Location [facility] [place] [facility] - [address] [facility] [address]
--- OUTSIDE RECORDS SUMMARY | 2024-09-29 03:37 | External Medical Summary | Summary of Care ---
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)*; Hepatic encephalopathy (HCC) Allergies Active Allergy Reactions Criticality Noted [...] as of this encounter (statuses as of 08/31/2024) Medications DIURETIC TITRATION PLANIndications:Aquiles ambriz diastolic congestive heart failure (HCC) If no improvement on day 3, contact heart failure managing provider or [facility] at home case assistant 1 Each 01/19/20 19 Active Medical [...] 3 12/03/19 22 Active OneTouch Delica Plus [id number] ns:Type 2 diabetes mellitus with hemoglobin A1c [...] as of this encounter (statuses as of 08/31/2024) Active Problems Problem Noted Date Diagnosed Date [...] Assessment & Plan (10/16/2021 12:04 PM EDT): [facility] Call: Not taking diuretics 2/2 combination [...] above regimen Atherosclerotic heart diseas e of [place] coronary artery without angina pectoris 09/08/2019 Assessment [...] obesity with BMI of 45.0-49.9, adult 01/2018 FPC (current) use of insulin 03/26/2018 Pressure sore [...] diuretics since 10/15. 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 Usually takes metolazone [...] 01/13/13 PSG -- RDI 5.3 [facility] - [place] Gastroesophageal reflux disease without esophagi tis 11/22/2010 Assessment & Plan (05/09/2022 7:26 AM EDT): Sx controlled with ompeprazole DYSLIPIDEMIA, GOAL LDL BELOW 100 06/26/2009 Overview (06/26/2009): Per Lipid Taxonomy. DM gastroparesis IBS (irritable bowel syndrome) documented as of this encounter (statuses as of 08/31/2024) Resolved Problems Problem Noted Date Diagnosed Date [...] as of this encounter (statuses as of 08/31/2024) Immunizations Name Administration Dates Next Due COVID-19 Whole Virus, Quispe Vac, 2-Dose Series ([employer]) 09/03/2020,08/03/2020 COVID-19 mRNA, LNP-s, No Pre serve, 2-Dose Series ([employer]) 09/02/2020,08/12/2020 HEP A - Hepatitis A (Adult [...] often do you attend chur ch or yazdanism services? 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 [address] [place] [address] Henri Beauchamp DO [address] [place] [address] 12/07/2024 12:00 PM EDT Office Visit Gastroenterology, 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) Hepatic encephalopathy (HCC) Expected: 08/31/2024, Expires: 08/31/2025 PT INR Lab Routine 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) Hepatic encephalopathy (HCC) Expected: 08/31/2024, Expires: 08/31/2025 Scheduled Procedures Name Priority Associated Diagnoses Date/Ti me COLONOSCOPY FLEXIBLE PROXIMA L DIAGNOSTIC Recall History of colonic polyps Health Maintenance Due Date Last Done Comments CKD PHOS USE SMARTSET 03846 1973 Cologuard 2000 Fecal Occult Blood Test [...] 01/21/2022, Additional history exists GFR 02/26/2025 08/29/2024, 0209/2024, 08/15/2024, Additional history exists Pneumococcal Vaccine: 50+ Years (3 of 3 - PCV20 or PCV21) 05/23/2025 05/23/2020, 05/27/2006 Diabetic Eye Exam 06/30/2025 06/30/2024, , 06/30/2024, Additional history exists CKD HGB USE SMARTSET 51511 08/29/202508/29, 08/22/2024, 08/15/2024, Additional history exists Colonoscopy [...] goiter Thrombocytopenia (HCC) Thrombocytopenia, unspecified Atherosclerosis of [place] coronary artery without angina pectoris, unspecified whether [place] or transplanted heart Chronic diastolic heart failure [...] BMI of 45.0-49.9, adult (HCC) Morbid obesity 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
--- OUTSIDE RECORDS SUMMARY | 2024-09-29 03:37 | External Medical Summary | Summary of Care ---
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) Allergies Active Allergy Reactions Criticality Noted [...] as of this encounter (statuses as of 08/29/2024) Medications DIURETIC TITRATION PLANIndications:Aquiles ambriz diastolic congestive heart failure (HCC) If no improvement on day 3, contact heart failure managing provider or [facility] at home field case manager 1 Each 01/19/20 19 Active [...] 3 12/03/19 22 Active OneTouch Delica Plus [id number] ns:Type 2 diabetes mellitus with hemoglobin A1c [...] 0.625 MG/GM Vaginal Cream 07/15/20 23 Active Lactulose 10 GM/15ML Oral Solution (Constulose) Take 30 mL by mouth in the morning and 30 mL at noon and 30 mL before bedtime. 240 mL 3 12/22/19 24 Active buPROPion HCl ER (SR) 150 MG [...] pulse is < 60. 08/18/19 25 Active documented as of this encounter (statuses as of 08/29/2024) Active Problems Problem Noted Date Diagnosed Date [...] & Plan (10/16/2021 12:04 PM EDT): [facility] Call: Not taking diuretics 2/2 combination [...] above regimen Atherosclerotic heart diseas e of [place] coronary artery without angina pectoris 09/08/2019 Assessment [...] obesity with BMI of 45.0-49.9, adult 01/2018 snf (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 Usually takes metolazone on [...] 01/13/13 PSG -- RDI 5.3 P - [place] Gastroesophageal reflux disease without esophagi tis 11/22/2010 Assessment & Plan (05/09/2022 7:26 AM EDT): Sx controlled with ompeprazole DYSLIPIDEMIA, GOAL LDL BELOW 100 06/26/2009 Overview (06/26/2009): Per Lipid Taxonomy. DM gastroparesis IBS (irritable bowel syndrome) documented as of this encounter (statuses as of 08/29/2024) Resolved Problems Problem Noted Date Diagnosed Date [...] as of this encounter (statuses as of 08/29/2024) Immunizations Name Administration Dates Next Due COVID-19 Whole Virus, Quispe Vac, 2-Dose Series ([employer]) 09/03/2020,08/03/2020 COVID-19 mRNA, LNP-s, No Pre serve, 2-Dose Series ([employer]) 09/02/2020,08/12/2020 HEP A - Hepatitis A (Adult [...] any clubs o r organizations such as moravian groups, unions, fraternal or athletic groups, or [...] Answer Date Recorded PHQ-2 Score 0 03/08/2019 [facility] [place] of Occupat ional Health - Occupational Stress [...] Care Team (Late st Contact Info) Description 08/29/2024 5:10 AM EST Laboratory Lab Mobile Phlebotomy [facility] [address] [facility] [place] [address] [place] [address] 08/30/2024 12:00 PM EST Office Visit Gastroenterology, [facility] [address] [place] [address] Sandhya Blair CRNP [address] [place] [address] 11/03/2024 11:00 AM EDT Office Visit Ophthalmology, [facility] [address] [place] [address] Henri Beauchamp DO [address] [place] [address] 12/22/2024 10:00 AM EDT Office Visit Sleep Disorders Ctr [facility] [address] [place] [phone] Corinne Carlin CRNP [address] [place] [address] 03/30/2025 3:30 PM EDT Office Visit Cardiology [address] [place] [address] Adrianna Huffman PA-C [address] [place] [address] Scheduled Orders Name Type Priority Associated Diagnoses Orde r Schedule COMPREHENSIVE METABOLIC PANEL Lab Routine ARF (acute renal failure) (HCC) 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) Expected: 08/29/2024, Expires: 08/29/2025 AMMONIA Lab Routine ARF (acute renal failure) (HCC) 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) Expected: 08/29/2024, Expires: 08/29/2025 CBC Lab Routine ARF (acute renal failure) (HCC) 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) Expected: 08/29/2024, Expires: 08/29/2025 Scheduled Procedures Name Priority Associated Diagnoses Date/Ti me COLONOSCOPY FLEXIBLE PROXIMA L DIAGNOSTIC Recall History of colonic polyps Health Maintenance Due Date Last Done Comments CKD PHOS USE SMARTSET 56606 1973 Cologuard 2000 Fecal Occult Blood Test [...] 12/0 11/2022, 01/21/2022, Additional history exists GFR 02/19/2025 08/22/2024, 07/21, 08/08/2024, Additional history exists Pneumococcal Vaccine: 50+ Years (3 of 3 - PCV20 or PCV21) 05/23/2025 05/23/2020, 05/27/2006 Diabetic Eye Exam 06/30/2025 06/30/2024, , 06/30/2024, Additional history exists CKD HGB USE SMARTSET 27950 08/22/202508/22, 08/15/2024, 08/08/2024, Additional history exists Colonoscopy 07/10/2028 07/10/2023, 04/0 [...] goiter Thrombocytopenia (HCC) Thrombocytopenia, unspecified Atherosclerosis of [place] coronary artery without angina pectoris, unspecified whether [place] or transplanted heart Chronic diastolic heart failure [...] BMI of 45.0-49.9, adult (HCC) Morbid obesity ARF (acute renal failure) (HCC)- Primary Acute kidney failure, unspecified 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
--- OUTSIDE RECORDS SUMMARY | 2024-09-29 03:37 | External Medical Summary | Summary of Care ---
Author Name Unknown Organization [facility] Address [address] [place] [address] Phone [phone] Care Team Providers Care Mine Supervisor Name Role Phone Oxana Willams MD Primary Care Provider [phone] Reason for Referral * Precert (Within 10 days (routine)) - Authorized Specialty Diagnoses / Procedures Referred By Contac t Referred To Contact Radiology Diagnoses Other cirrhosis of liver (HCC) Procedures CT LIVER 4-PHASE W WO IV CONTRAST - WO ORAL CONT Sandhya Blair CRNP [address] [place] [address] Phone: tel: fax: Referral ID Status Reason Start Date Expiration Date V isits Requested Visits Authorized [id number] Authorized 08/30/2024 999 999 Reason for Visit * Reason Comments Follow Up Follow up IBS-C/GERD . Hx cirrhosis. Pt states bowels re moving ok. GERD stable on PPI. Occasional dysphagia to solids. Encounter Details Date Type Department Care Team (Late Contact Info) Description 08/30/2024 12:00 PM EST Office Visit Gastroenterology, [facility] [address] [place] [address] Sandhya Blair CRNP [address] [place] [phone] Other cirrhosis of liver (HCC)*; Generalized edema; [...] managing provider or [facility] case reviewer 1 Each 01/19/20 19 Active Medical Compression [...] 3 12/03/19 22 Active OneTouch Delica Plus [id number] ns:Type 2 diabetes mellitus with hemoglobin A1c [...] Assessment & Plan (10/16/2021 12:04 PM EDT): [facility] Call: Not taking diuretics 2/2 [...] above regimen Atherosclerotic heart diseas e of [place] coronary artery without angina pectoris 09/08/2019 Assessment [...] obesity with BMI of 45.0-49.9, adult 01/2018 manager intermediate (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 Is able to strip picker new medication today. Usually takes metolazone [...] 7 cwp 01/13/13 PSG -- RDI 5.3 [facility] - Bhupinder Gastroesophageal reflux disease without [...] colon 09/17/200901/2018 Overview (10/09/2009): sellile serrated adenoma, [facility], f/u in colonoscopy in 5 yrs [...] COVID-19 Whole Virus, Quispe Vac, 2-Dose Series ([employer]) 09/03/2020,08/03/2020 COVID-19 mRNA, LNP-s, No Pre serve, 2-Dose Series ([employer]) 09/02/2020,08/12/2020 HEP A - Hepatitis A (Adult [...] any clubs o r organizations such as jew groups, unions, fraternal or athletic groups, or [...] Answer Date Recorded PHQ-2 Score 0 03/08/2019 [facility] - Occupational [...] place to sleep or slept in a group home (including now)? No 06/01/2020 Comments No Sex [...] followed by MISAEL Hernandez. Recently admitted at [facility] from 01/31/17 to 02/02/17 with volume overload. [...] diuretics as well as low salt diet. [place] leg swelling is much improved and doesn't [...] mother recently . Pt was admitted in [facility] in July for CHF exacerbation, diuretics increased to Lasix 80mg BID , kept on Spironolactone 100mg daily. She saidbeen also eating food w/o salt or seasoning. She had lost over 20lbs which she gained during her CHD exacerbation. Also denies arms, leg swelling, abd distension. Main complaint today is difficulty swallowing meats, breads. [place] they are sticking to lower esophageal area causing epigastric pain till food passes. Denies reflux, heartburn. Still on Prilosec 20mg daily. Is having intermittent constipation, and hematochezia when hard stool passes. On Miralax 1 packet daily. Of note, CT scan in June showed increasing mesorenal/mesocaval increasing varices. Been seen byDr. Lee ([facility]) who plan for transjugular cath w liver bx and portal pressure measurement on 09/24/17. 01/21/18: Pt here for f/u. Since last seen had transjugular cath with liver bx and portal measurement by Dr. Newell ([facility]) on 09/24/17: Patent right internal jugular [...] 25 minutes. I last saw pt at [facility] in July as consultation for AMS. She had a R occipital subacute ischemic stroke at that time. No f/u with Neurology after DC. She is having trouble w R eye vision and some generalized weakness, had a fall 2 weeks ago. Currently residing in [place]. She was also having trouble with hepatic encephalopathy, not taking meds as prescribed at home. But currently at [place], meds being administered by nursing staff. She [...] not on a low salt diet at shelter. Current diuretic: Torsemide 40mg daily + Spironolactone 25mg daily. 06/23/23: Pt reports that her abdomen and leg feels less swollen. However she feels quite weak. Sometimes shaky. Denies chest pain, additional shortness of breath, abdominal pain, nausea or vomiting.Bowels move about 3 times a day without rectal bleeding. States had right lower extremity Doppler at [place] and was told that she did not [...] neoplasm of colon 09/2009 sellile serrated adenoma, [facility], f/u in colonoscopy in 5 yrs BMI [...] IV CONTRAST (NO PO) 09/25/2009 essentially normal, [facility] ARTHROPLASTY KNEE TOTAL 2008 right, Dr. Arias COLONOSCOPY 1976 cysts in bowels and treated with RT COLONOSCOPY 09/26/2009 sellile serrated adenoma, [facility], f/u in colonoscopy in 5 yrs COLONOSCOPY, DIAGNOSTIC (RECTUM) 07/21/2013 COLONOSCOPY FLEXIBLE PROXIMAL DIAGNOSTIC [facility], [facility]STIC (RECTUM) 10/18/2018 adenomatous polyp, fair prep, repeat 3 yrs/[facility] COLONOSCOPY, DIAGNOSTIC (RECTUM) N/A 07/10/2023 diverticulosis/recall 5 years/Colonoscopy/[place] CTA CHEST/ABDOMEN W CONTRAST 10/22/2012 possible esophagitis, no naeurysm or other abnormality CXR 2 VIEWS AP/PA & LATERAL 09/25/2009 mild cardiomegaly EGD, FLEXIBLE, DIAGNOSTIC 11/02/2015 mild inflammation, repeat 1.5 yrs/[facility] EGD, FLEXIBLE, DIAGNOSTIC 09/29/2017 portal hypertensive gastropathy, repeat 1.5 yrs/[facility] EGD, FLEXIBLE, DIAGNOSTIC 10/18/2018 portal hypertensive gastropathy, repeat 1.5 yrs/[facility] EGD, FLEXIBLE, DIAGNOSTIC 06/28/2019 mild gastric irritation on bx / [facility] EGD, FLEXIBLE, DIAGNOSTIC N/A 07/10/2023 normal/EGD/[place] EGD, FLEXIBLE, W/BIOPSY 09/22/[address] kumar EGD, FLEXIBLE, W/DILATE STRICTURES 09/2012 EGD, W/ENDOSCOPIC US 11/02/2015 fatty liver/[facility] EKG 09/25/2009 Normal ECG, [facility] FLUORO SWALLOWING FUNCTION W VIDEO CINE 04/01/2011 esophageal dysmotility LEFT HEART CATHETERIZATION 2001 normal LENS EXTRACTION, PHACOFRAGMENTATION Bilateral Dr. Caputo 3 years ago per pt. MISCELLANEOUS ORDER ([facility] ONLY) 1982 bladder tack up RI GASTRIC EMPTYING STUDY LIQUID 09/25/2009 significant gastric emptying delay, [facility] NUCLEAR SCANS, CARDIAC BLOOD POOL 09/01/2012 normal, no wall motion abnormalities, EF 72% OTHER (INFORMATION) ACT 112 SIGNED 08/05/24 DR. BEAUCHAMP REMOVAL OF APPENDIX 1981 REMOVE GALLBLADDER 2001 bowel disease treated with antibiotics REMOVE GALLBLADDER REMOVE OVARIAN TUMOR W/HYSTERECTOMY 1982 complete hysterectomy and b/l ovaries SPIROMETRY B/A BRONCHODILATOR 12/26/2008 mild obstructive disease US ABDOMEN LIMITED 09/25/2009 fatty liver, [facility] Social History Tobacco Use Smoking status: Never [...] managing provider or [facility] case reviewer 1 Each 0 Medical Compression Stockings Wear during the day, Take off at night 2 Each 0 CPAP every night at bedtime . OneTouch Verio In Vitro Strip (Glucose Blood) Use to test blood sugar at least once a day DX e11.9 100 Strip 3 OneTouch Delica Plus [id number] Use as directed . Use to test [...] July 2022, hepatic encephalopathy requiring hospitalization at [facility]. Currently at [facility]. Ongoing issues with volume status balance. [...] Hep B immunity: completed - HCC screening [id number]; obtain CT liver as US may not [...] TO CLINIC: 3 months Philippe Gong Gastroenterology, [facility] documented in this encounter Nursing Notes [...] Description 09/08/2024 11:00 AM EST Imaging Radiology [facility] 1st Floor, [place] [address] [place] [phone] 11/03/2024 11:00 AM EDT Office Visit Ophthalmology, [facility] [address] [place] [address] Henri Beauchamp DO [address] [place] [address] 12/07/2024 12:00 PM EDT Office Visit Gastroenterology, [facility] [address] [place] [address] Sandhya Blair CRNP [address] [place] [address] 12/22/2024 10:00 AM EDT Office Visit [facility] [address] [place] [phone] Corinne Carlin CRNP [address] [place] [address] 03/30/2025 3:30 PM EDT Office Visit Cardiology [address] [place] [address] Adrianna Huffman PA-C [address] [place] [address] Scheduled Orders Name Type Priority Associated Diagnoses [...] Last Done Comments CKD PHOS USE SMARTSET 72859 1973 Cologuard 2000 Fecal Occult Blood Test [...] Additional history exists CKD HGB USE SMARTSET 14126 08/29/202508/29, 08/22/2024, 08/15/2024, Additional history exists Colonoscopy [...] goiter Thrombocytopenia (HCC) Thrombocytopenia, unspecified Atherosclerosis of [place] coronary artery without angina pectoris, unspecified whether [place] or transplanted heart Chronic diastolic heart failure [...] reflux documented in this encounter Care Teams Mine Supervisor Relationship Specialty Start Date End Date Oxana Willams MD [address] [place] [address] [place] [id number] PCP - General Internal Medicine 08/17/23 documented as of this encounter
--- OUTSIDE RECORDS SUMMARY | 2024-09-29 03:37 | External Medical Summary ---
Author Name Unknown Address Unknown Organization K01:[facility] [address] [place] [address] Laboratory Report Ordering Provider Test Date Status MONICA FERNANDES 08/29/2024 05:13:00 Final Observation Date Value Abnormality Reference (Units ) Status Ammonia 08/29/2024 05:13:00 89 Above upper panic limits 11-35 (umol/L) Final Performing Location [facility] - [address] [place] [address]
--- OUTSIDE RECORDS SUMMARY | 2024-09-29 03:37 | External Medical Summary | Summary of Care ---
Author Name Unknown Organization [facility] Address [address] [place] [address] Phone [phone] Care Team Providers Care Group Leader [employer] Name Role Phone Oxana Willams MD Primary Care Provider [phone] Reason for Visit * Reason Comments Follow Up 5 month follow up. E anthony in LE and abdomen more noticeable then prior. Denies chest pain, palpitations, dizziness and SOB. Encounter Details Date Type Department Care Team (Late st Contact Info) Description 08/18/2024 3:00 PM EST Office Visit Cardiology [address] [place] [address] Adrianna Huffman PA-C [address] [place] [address] Chronic right-sided heart failure (HCC)*; HTN, goal below 140/90; Chronic heart failure with preserved ejection fraction (HCC); SMALL (nonalcoholic steatohepatitis) Allergies Active Allergy Reactions Criticality Noted Date [...] as of this encounter (statuses as of 08/24/2024) Medications DIURETIC TITRATION PLANIndications:C hronic diastolic congestive heart failure (HCC) If no improvement on day 3, contact heart failure managing provider or [facility] case management rn 1 Each 019 Active Medical Compression Stockings Wear during the day, Take off at night 2 Each 021 Active CPAP every night at bedtime . Active OneTouch Verio In Vitro Strip (Glucose Blood)Indications :Type 2 diabetes mellitus with hemoglobin A1c goal of less than 8.5% (HCC) Use to test blood sugar at least once a day DX e11.9 100 Strip 3 022 Active OneTouch Delica Plus [id number] ons:Type 2 diabetes mellitus with hemoglobin A1c goal of less than 8.5% (HCC) Use as directed . Use to test blood sugar once a day DX e11.9 100 Each 3 022 Active Ondansetron 4 MG Oral Tablet Disintegrating (Zofran)Indicatio ns:Nausea and vomiting, unspecified vomiting type Place 1 Tablet (4 mg) on tongue every 8 hours as needed for Nausea. dissolve on tongue. 20 Tablet Active Ascorbic Acid 500 MG Oral Tablet Take 1 Tablet by mouth daily. Active Refresh Tears 0.5 % Ophthalmic Solution 1 Drop 4 times a day as needed. Active Vitamin D3 25 MCG (1000 UT) Oral Tablet (Vitamin D3) Take 1 Tablet by mouth in the morning. Active Clotrimazole 1 % External Cream (Lotrimin) Apply topically daily as needed on abdominal folds Active FreeStyle Courtney 2 Sensor Use as directed. Active Diclofenac Sodium 1 % External Gel (Voltaren) Apply a small amount topically four times daily as needed Active Glucagon Emergency 1 MG Injection Kit 02/03/2 023 Active NovoLOG 100 UNIT/ML Injection Solution Inject under the skin three times a day before meals. Inject 5 units with breakfast, 20 units with lunch, 30 units with supper Active NovoLIN N FlexPen 100 UNIT/ML Subcutaneous Suspension Pen-injector Inject under the skin daily 50 units in the morning and 35 units in the evening Active Lidocaine Pain Relief 4 % External Patch Place 1 Patch topically on the skin daily. 023 Active Omeprazole 20 MG Oral Capsule Delayed Release (PriLOSEC) Take 1 Capsule by mouth in the morning. Active Acetaminophen ER 650 MG Oral Tablet [...] nostril. Active Premarin 0.625 MG/GM Vaginal Cream 023 Active Lactulose 10 GM/15ML Oral Solution (Constulose) Take 30 mL by mouth in the morning and 30 mL at noon and 30 mL before bedtime. 240 mL 3 024 Active buPROPion HCl ER (SR) 150 MG Oral Tablet Extended Release 12 Hour (Wellbutrin SR) Take 1 Tablet by mouth every morning. Active BD AutoShield Duo 30G X 5 MM Active Mirtazapine 15 MG Oral Tablet (Remeron) Active traMADol HCl 50 MG Oral Tablet (Ultram) 024 Active Calamine-Zinc Oxide 8-8 % External Lotion Apply topically to affected area. Apply to right lower buttocks Active rifAXIMin 550 MG Oral Tablet (Xifaxan) Take 1 Tablet by mouth in the morning and 1 Tablet before bedtime. Active Zinc Oxide 40 % External Ointment (Desitin/Erma x) Apply topically to affected area as needed for Dry Skin. Apply to [place] Active Spironolactone 25 MG Oral Tablet (Aldactone) 1 tablet on Thu and Active Torsemide 20 MG Oral Tablet (Demadex) Take 1 tablet 6 days per week (hold on Thursday) Active Nadolol 20 MG Oral Tablet (Corgard) Take 0.5 Tablets by mouth in the morning and 0.5 Tablets before bedtime. Hold if systolic BP is < 100 or pulse is < 60. 025 Active Nadolol 20 MG Oral Tablet (Corgard) Take 0.5 Tablets by mouth in the morning. Hold if systolic BP is < 100 or pulse is < 60. 2024 Discontinued Spironolactone 25 MG Oral Tablet (Aldactone) Take 1 Tablet by mouth in the morning. 024 2024 Discontinued Torsemide 20 MG Oral Tablet (Demadex) Take 1 Tablet by mouth in the morning. 90 Tablet 3 024 2024 Discontinued documented as of this encounter (statuses as of 08/24/2024) Active Problems Problem Noted Date Diagnosed Date [...] Assessment & Plan (10/16/2021 12:04 PM EDT): [facility] Call: Not taking diuretics 2/2 combination of [...] above regimen Atherosclerotic heart diseas e of [place] coronary artery without angina pectoris 09/08/2019 Assessment [...] obesity with BMI of 45.0-49.9, adult 01/2018 half-way (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 Is able to picker/puller new medication today. Usually takes metolazone on [...] 01/13/13 PSG -- RDI 5.3 [facility] - [place] Gastroesophageal reflux disease without esophagi tis 11/22/2010 Assessment & Plan (05/09/2022 7:26 AM EDT): Sx controlled with ompeprazole DYSLIPIDEMIA, GOAL LDL BELOW 100 06/26/2009 Overview (06/26/2009): Per Lipid Taxonomy. DM gastroparesis IBS (irritable bowel syndrome) documented as of this encounter (statuses as of 08/24/2024) Resolved Problems Problem Noted Date Diagnosed Date [...] colon 09/17/200901/2018 Overview (10/09/2009): sellile serrated adenoma, [facility], f/u in colonoscopy in 5 yrs [...] as of this encounter (statuses as of 08/24/2024) Immunizations Name Administration Dates Next Due COVID-19 Whole Virus, Quispe Vac, 2-Dose Series (Equipboard) 09/03/2020,08/03/2020 COVID-19 mRNA, LNP-s, No Pre serve, 2-Dose Series (Pfizer) 09/02/2020,08/12/2020 HEP A - Hepatitis A (Adult [...] often do you attend chur ch or buddhism services? More than 4 times per year 06/01/2020 Do you belong to any clubs o r organizations such as jewish groups, unions, fraternal or athletic groups, or [...] Answer Date Recorded PHQ-2 Score 0 03/08/2019 [facility] - Occupational [...] Sign Reading Time Taken Comments Blood Pressure 112/56 08/18/2024 2:52 PM EST Pulse 60 08/18/2024 2:52 PM EST Temperature - - Respiratory Rate 16 08/18/2024 2:52 PM EST Oxygen Saturation - - Inhaled Oxygen Concentration - - Weight 129.3 kg (285 lb) 08/18/2024 2:52 PM EST Per [place] Height - - Body Mass Index 47.43 12/23/2023 9:50 AM EDT documented in this encounter Functional Status * Does this person have serious difficulty walking or climbing stairs? Answer Date of Assessment Author Yes 06/01/2020 11:39 AM EST documented as of this encounter Progress Notes * Adrianna Huffman PA-C - 08/18/2024 3:04 PM EST Images from the original note were not included. Cardiology F/U: Indu Carbone is a 69 year old female here today for routine cardiology follow- up. Last clinic evaluation approximately 6 months ago with the undersigned. 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 History of Present Illness Indu Carbone is a 69 year old female here today from nursing facility for routine f/u. Over the past couple of months, she has experienced increased fluid retention in her abdomen and leg. There is concern about increasing her diuretic medication due to potential kidney damage, although her kidney function has slightly improved compared to a few months ago. She is actually down 10 lbs since last visit in February when her diuretics were up titrated. Her blood pressure fluctuates significantly, with some days being high and others low. When her blood pressure is too low, her blood pressure medication is held. She experiences frequent epistaxis, occurring up to twice a day, described as 'pouring out like water.' These typically affect both nostrils, although today it was only on one side. She is not on anyblood thinners, including aspirin, due to previous episodes of epistaxis. She mentions a persistent issue with a lymphedema pocket in her abdomen, which becomes more noticeable when she is in her wheelchair, leaving an imprint on her abdomen. Her breathing has been good, and there are no open wounds or sores on her legs. No chest pain, shortness of breath, palpitations, dizziness, syncope or near syncope. No orthopnea,PND, or increased lower extremity edema. No fever, chills, cough, hematochezia, melena, or hemoptysis. Review of Systems: See HPI for pertinent positives. All others negative, other than those noted in HPI. Patient Active Problem List Diagnosis DYSLIPIDEMIA, GOAL LDL BELOW 100 DM gastroparesis (HCC) Gastroesophageal reflux disease without esophagitis GARRETT (obstructive sleep apnea) Deviated nasal septum Hypertrophy of nasal turbinates Chronic rhinitis Other chronic sinusitis Temporomandibular joint disorder Chronic constipation Type 2 diabetes mellitus with hemoglobin A1c goal of less than 8.5% (HCC) IBS (irritable bowel syndrome) Mixed stress and urge urinary incontinence Liver cirrhosis secondary to SMALL (HCC) Chronic heart failure with preserved ejection fraction (HCC) History of melanoma in situ Fibromyalgia Morbid obesity with BMI of 45.0-49.9, adult (HCC) half-way (current) use of insulin (HCC) Pressure sore on buttocks Dentalgia History of major abdominal surgery Major depressive disorder, recurrent, unspecified (HCC) Thrombocytopenia (HCC) Type 2 diabetes mellitus with mild nonproliferative diabetic retinopathy without macular edema, bilateral (HCC) HTN, goal below 140/90 Atherosclerotic heart disease of [place] coronary artery without angina pectoris Nocturnal hypoxemia Frequent nosebleeds Esophageal spasm Chronic right-sided heart failure (HCC) History of epistaxis Mild episode of recurrent major depressive disorder (HCC) Thyroid nodule Portal hypertensive gastropathy (HCC) Constipation Hypertensive heart and kidney disease with chronic diastolic congestive heart failure and stage 3a chronic kidney disease (HCC) Review of patient's allergies indicates: Allergen Reactions Ciprofloxacin Other reaction(s): MOUTH BLISTERS, HIVES Morphine Other reaction(s): HIVES, "DEATHLY ILL", THROWS UP Oxycodone rash/vomiting Other reaction(s): HIVES, VOMITING Penicillin V Other reaction(s): HIVES Clindamycin Itching Resolved with Benadryl Cipro [Ciprofloxacin] Swelling of lips, hives Keflex [Cephalexin] Rash Penicillins rash Current Outpatient Medications Medication Sig Dispense Refill Medical Compression Stockings Wear during the day, Take off at night 2 Each 0 CPAP every night at bedtime . OneTouch Verio In Vitro Strip (Glucose Blood) Use to test blood sugar at least once a day DX e11.9 100 Strip 3 OneTouch Delica Plus [id number] Use as directed . Use to test [...] amount topically four times daily as needed NovoLOG 100 UNIT/ML Injection Solution Inject under [...] by mouth every 4 hours as needed. Stomahesive Protective Powder Use as directed. Nadolol 20 MG Oral Tablet (Corgard) Take 0.5 Tablets by mouth in the morning. Hold if systolic BP is < 100 or pulse is < 60. CVS Nasal Mist 0.9 % Nasal Aerosol Solution (Saline) Administer into nostril. Premarin 0.625 MG/GM Vaginal Cream buPROPion HCl ER (SR) 150 MG Oral Tablet Extended Release 12 Hour (Wellbutrin SR) Take 1 Tablet by mouth every morning. BD AutoShield Duo 30G X 5 MM traMADol HCl 50 MG Oral Tablet (Ultram) Calamine-Zinc Oxide 8-8 % External Lotion Apply topically to affected area. Apply to right lower buttocks Spironolactone 25 MG Oral Tablet (Aldactone) Take 1 Tablet by mouth in the morning. Torsemide 20 MG Oral Tablet (Demadex) Take 1 Tablet by mouth in the morning. 90 Tablet 3 rifAXIMin 550 MG Oral Tablet (Xifaxan) Take 1 Tablet by mouth in the morning and 1 Tablet before bedtime. Zinc Oxide 40 % External Ointment (Desitin/Evon) Apply topically to affected area as needed for Dry Skin. Apply to Labia DIURETIC TITRATION PLAN If no improvement on day 3, contact heart failure managing provider or [facility] at home case management rn 1 Each 0 Glucagon Emergency 1 MG Injection Kit Fleet Enema 7-19 GM/118ML Rectal Enema Administer 1 Enema into the rectum once. Nitroglycerin 0.3 MG Sublingual Tablet Sublingual (Nitrostat) Dissolve 1 tablet under the tongue once if needed for esophageal spasm (Patient not taking: Reported on 08/18/2024) Lactulose 10 GM/15ML Oral Solution (Constulose) Take 30 mL by mouth in the morning and 30 mL at noon and 30 mL before bedtime. 240 mL 3 Mirtazapine 15 MG Oral Tablet (Remeron) (Patient not taking: Reported on 08/18/2024) No current facility-administered medications for this visit. OBJECTIVE/PHYSICAL EXAMINATION: BP 112/56 | Pulse 60 | Resp 16 | Wt 129.3 kg (285 lb) Comment: Per [place] [facility] | BMI 47.43 kg/m | BSA 2.44 m Wt Readings from Last 3 Encounters: 08/18/24 129.3 kg (285 lb) 03/11/24 132 kg (291 lb) 03/03/24 133.8 kg (295 lb) Weight is from nursing facility General: Morbidly obese female in no acute distress Head: normocephalic, no masses, lesions, tenderness or abnormalities Eyes: conjunctiva are pink and non-injected, sclera clear Neck: No JVD. Lungs: clear to auscultation Cardiac Exam: Regular. Grade 2 systolic ejection murmur. No diastolic murmur. Abdomen: +bowel sounds. Large panniculus, 1+ edema of the abdominal wall Extremities: 1-2+ B/L edema Neuro: grossly normal exam Data: EKG performed today and reviewed personally: Sinus bradycardia at 57 bmp Possible old anterior infarct No change from previous EKG 06/2023 Normal sinus rhythm High QRS voltage may be normal variant or due to lve Borderline ECG When compared with ECG of 30-JUL-2021 13:36, No significant change was found Echo report reviewed from Jul 2022: Echocardiogram report reviewed dated February 2022: Interpretation Summary The examination is adequate to evaluate the referral indication. The left ventricular cavity size is normal. The LV wall thickness is mildly increased (concentric). The left ventricular wall motion is normal. The qualitative LV ejection fraction is 60-64% (normal). The left ventricular diastolic function is mildly abnormal (grade I). The left atrium is mildly enlarged (35-41 ml/m^2). Mild aortic valve sclerosis is present. There is no evidence of pulmonary hypertension. Echocardiogram June 26, 2020: The qualitative LV ejection fraction is 60-64% (normal). The LV wall thickness is mildly increased (concentric). The left atrium is mildly enlarged (35-41 ml/m^2). The left ventricular diastolic function is moderately abnormal (grade II). Mild tricuspid regurgitation is present. Dilated IVC with normal inspiratory variation suggesting a right atrial pressure of 8 mmHg. The estimated pulmonary artery systolic pressure is 45 mm Hg. Compared to last available study changes are noted as follows: Grade 2 diastolic dysfunction and mild pulmonary hypertension now present. Latest Reference Range & Units 08/08/24 05:20 08/15/24 05:25 08/22/24 05:28 SODIUM 135 - 146 mmol/L 140 141 141 POTASSIUM 3.5 - 5.1 mmol/L 5.0 4.8 4.7 CHLORIDE 98 - 107 mmol/L 106 107 107 CO2 22 - 32 mmol/L BUN 6 - 20 mg/dL 40 (H) 40 (H) 42 (H) CREATININE 0.5 - 1.0 mg/dL 2.4 (H) 2.3 (H) 2.1 (H) EGFR >=60 mL/min 21 (L) 22 (L) 25 (L) ANION GAP 7 - 15 mmol/L 9 9 7 GLUCOSE 70 - 120 mg/dL 209 (H) 153 (H) 216 (H) CALCIUM 8.4 - 10.2 mg/dL 9.1 8.8 8.7 (H): Data is abnormally high (L): Data is abnormally low Assessment & Plan Chronic HFpEF; Right sided HF Chronic fluid retention managed with diuretics. Current weight is 285 lbs, down from 295 lbs in February. No open wounds or sores on the leg. Lymphedema pocket noted in the abdomen. Risks of increasing diuretics include potential kidney damage; benefits include potential reduction in fluid retention. Discussed alternative approaches such as wraps or massage for lymphedema. - Continue current diuretic regimen for now. Patient does not want to increase diuretics. - Monitor weight and fluid retention - Consider wraps or massage for lymphedema Chronic Kidney Disease Kidney function stable but delicate. Slight improvement compared to a few months ago. Risks of increasing diuretics include potential kidney damage; benefits include potential reduction in fluid retention. Decision to avoid increasing diuretics without clinical editor consultation due to these risks. - Monitor kidney function regularly Blood Pressure Fluctuations Blood pressure fluctuates between high and low. Current blood pressure is stable. EKG shows heart rate around 60 bpm. - Hold antihypertensive medication if blood pressure is too low - Monitor blood pressure regularly Epistaxis Frequent epistaxis, occurring daily, sometimes twice a day. Not on anticoagulants. - Consider ENT referral if epistaxis persists - Use cold ice packs for immediate relief - Avoid blowing nose - Discuss with Dr. Burt on Thursday if epistaxis continues General Health Maintenance Overall stable condition with no significant changes in EKG, blood pressure, or lab results. - Schedule follow-up visit in the summer Follow-up - Follow-up visit in the summer - Discuss epistaxis with Dr. Burt on Thursday if it persists. The patient is to continue all current medications as listed above. No changes were made at today'svisit. CHF tools discussed including daily weights, salt/sodium/fluid restriction, and use of diuretic protocol. Patient is being evaluated in the cardiology office for ongoing care/risk management for CHF; RHF. I spent a total of 35 minutes on the date of service in preparation, delivery, and documentation ofthe care provided to Indu Carbone excluding any time spent in the performance of separately billed services. The patient agrees to the above plan and will call with additional questions or concerns. ER with all emergencies advised. Follow Up: Return in about 6 months (around 02/15/2025). Adrianna Huffman PA-C Department of Cardiology Text in this note was generated using an ambient documentation service. I discussed the use of a device to record and summarize our discussion today. All persons present during the encounter consented to its use. This chart was completed in part utilizing [employer] Speech Voice Recognition Software. Grammatical errors, random word insertions, prounoun errors, and incomplete sentences are an occasional consequence of this system due to software limitations, ambient noise, and hardware issues. Any formal questions or concerns about the content, text, or information contained within the body of this dictation should be directly addressed to the provider for clarification. documented in this encounter Nursing Notes * Mehdi Perea LPN - 08/18/2024 2:51 PM EST Patient identified by full name and date of Chief Complaint Patient presents with Follow Up 5 month follow up. Edema in LE and abdomen more noticeable then prior. Denies chest pain, palpitations, dizziness and SOB. Examination Room: 4 Name: Indu Carbone Date of : (1955). Reason for Visit: Follow up Interim Hospitalization(s): Denies Problems/Concerns: See chief complaint Chest Pain/SOB: Denies [facility] Discussed: Yes [facility] is a way you can talk to your provider online through e-mail. Would you like to sign up? I can activate it for you? DECLINES Patient was instructed to not get up on the exam table until directed and assisted by their provider; patient is to remain seated in the chair/ wheelchair/ exam table for fall prevention and safety reasons. Patient is aware to have assistance to step down off exam table with personnel. Patient voiced full comprehension of instructions. documented in this encounter Plan of Treatment Upcoming Encounters Date Type Department Care Team (Late st Contact Info) Description 08/30/2024 12:00 PM EST Office Visit Gastroenterology, [facility] [address] [place] [address] Sandhya Blair CRNP [address] [place] [id number] 11/03/2024 11:00 AM EDT Office Visit Ophthalmology, [facility] [address] [place] [address] Henri Beauchamp DO [address] [place] [address] 12/22/2024 10:00 AM EDT Office Visit [facility] [address] [place] [id number] Corinne Carlin CRNP [address] [place] [address] 03/30/2025 3:30 PM EDT Office Visit Cardiology [address] [place] [address] Adrianna Huffman PA-C [address] [place] [address] Scheduled Orders Name Type Priority Associated Diagnoses Orde r Schedule EKG EKG Routine HTN, goal below 140/90 Ordered: 08/18/2024 Scheduled Procedures Name Priority Associated Diagnoses Date/Ti me COLONOSCOPY FLEXIBLE PROXIMA L DIAGNOSTIC Recall History of colonic polyps Health Maintenance Due Date Last Done Comments CKD PHOS USE SMARTSET 64872 1973 Cologuard 2000 Fecal Occult Blood Test [...] Additional history exists CKD HGB USE SMARTSET 32048 08/22/202508/22, 08/15/2024, 08/08/2024, Additional history exists Colonoscopy [...] goiter Thrombocytopenia (HCC) Thrombocytopenia, unspecified Atherosclerosis of [place] coronary artery without angina pectoris, unspecified whether [place] or transplanted heart Chronic diastolic heart failure [...] BMI of 45.0-49.9, adult (HCC) Morbid obesity Chronic right-sided heart failure (HCC)- Primary Congestive heart failure, unspecified HTN, goal below 140/90 Unspecified essential hypertension Chronic heart failure with preserved ejection fraction (HCC) SMALL (nonalcoholic steatohepatitis) Other chronic nonalcoholic liver disease documented in this encounter Care Teams Group Leader [employer] Relationship Specialty Start Date End Date Oxana Willams MD [address] [place] [address] [place] [address] PCP - General Internal Medicine 08/17/23 documented as of this encounter
--- OUTSIDE RECORDS SUMMARY | 2024-09-29 03:37 | External Medical Summary ---
Author Name Unknown Address Unknown Organization [id number] [address] [place] [address] Laboratory Report Ordering Provider Test Date Status DOMMONICA 08/31/2024 05:23:00 Final Warfarin Therapy
INR: 2 .0-3.0 conventional anticoagulation
INR: 2.5- 3.5 high intensity anticoagulation Observation Date Value Abnormality Reference (Units ) Status PT 08/31/2024 05:23:00 16.1 Above high normal 11 .6-15.2 (seconds) Final INR 08/31/2024 05:23:00 1.3 Above high normal 0. 8-1.2 Final Performing Location [facility] [address] [place] [id number]
--- OUTSIDE RECORDS SUMMARY | 2024-09-29 03:37 | External Medical Summary ---
Author Name Unknown Address Unknown Organization [id number] [address] [place] [address] Laboratory Report Ordering Provider Test Date Status MONICA FERNANDES 08/29/2024 05:13:00 Final Observation Date Value Abnormality Reference (Units ) Status WBC, Total 08/29/2024 05:13:00 6.97 4.00-10.8 0 (K/uL) Final RBC 08/29/2024 05:13:00 3.04 3.85-5.15 (M/uL) Final Hemoglobin 08/29/2024 05:13:00 9.1 Below low normal 12 .0-15.3 (g/dL) Final HCT 08/29/2024 05:13:00 28.9 Below low normal 36. 0-45.2 (%) Final MCV 08/29/2024 05:13:00 95.1 81.5-97.5 (fL) Final MCH 08/29/2024 05:13:00 29.9 27.0-34.0 (pg) Final MCHC 08/29/2024 05:13:00 31.5 32.0-36.0 (g/dL) Final RDW 08/29/2024 05:13:00 14.0 11.5-15.5 (%) Final Platelets 08/29/2024 05:13:00 111 Below low normal 140 -400 (K/uL) Final MPV 08/29/2024 05:13:00 11.4 6.6-11.1 ( fL) Final Performing Location [facility] [address] [place] [address]
--- OUTSIDE RECORDS SUMMARY | 2024-09-29 03:38 | External Medical Summary | Summary of Care ---
Author Name Unknown Organization [facility] Address [address] [facility] [address] Phone [phone] Care Team Providers Care Instructor Private Name Role Phone Oxana Willams MD Primary Care Provider [phone] [phone] Encounter Details Date Type Department Care Team (Late st Contact Info) Description 08/08/2024 Population Health External Data Unspecified Department Allergies Active Allergy Reactions Criticality Noted Date [...] as of this encounter (statuses as of 08/08/2024) Medications DIURETIC TITRATION PLANIndications:Aquiles ambriz diastolic congestive heart failure (HCC) If no improvement on day 3, contact heart failure managing provider or [facility] at home geriatric case manager 1 Each 01/19/20 19 Active Medical Compression Stockings Wear during the day, Take off at night 2 Each 10/06/19 21 Active CPAP every night at bedtime . Active OneTouch Verio In Vitro Strip (Glucose Blood)Indications: Type 2 diabetes mellitus with hemoglobin A1c goal of less than 8.5% ([facility]) Use to test blood sugar at least once a day DX e11.9 100 Strip 3 12/03/19 22 Active OneTouch Delica Plus [id number] ns:Type 2 diabetes mellitus with hemoglobin A1c goal of less than 8.5% ([facility]) Use as directed . Use [...] Stomahesive Protective Powder Use as directed. Active Nadolol 20 MG Oral Tablet (Corgard) Take 0.5 Tablets by mouth in the morning. Hold if systolic BP is < 100 or pulse is < 60. Active Nitroglycerin 0.3 MG Sublingual Tablet Sublingual [...] area. Apply to right lower buttocks Active Spironolactone 25 MG Oral Tablet (Aldactone) Take 1 Tablet by mouth in the morning. 03/03/20 24 Active Torsemide 20 MG Oral Tablet (Demadex) Take 1 Tablet by mouth in the morning. 90 Tablet 3 03/03/20 24 Active rifAXIMin 550 MG Oral Tablet (Xifaxan) Take 1 Tablet by mouth in the morning and 1 Tablet before bedtime. Active documented as of this encounter (statuses as of 08/08/2024) Active Problems Problem Noted Date Diagnosed Date [...] Assessment & Plan (10/16/2021 12:04 PM EDT): [facility] Call: Not taking diuretics 2/2 [...] above regimen Atherosclerotic heart diseas e of [place] coronary artery without angina pectoris 09/08/2019 Assessment [...] out diuretics since 10/15. 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 DM gastroparesis IBS (irritable bowel syndrome) documented as of this encounter (statuses as of 08/08/2024) Resolved Problems Problem Noted Date Diagnosed Date [...] colon 09/17/200901/2018 Overview (10/09/2009): sellile serrated adenoma, [facility], f/u in colonoscopy in 5 yrs [...] as of this encounter (statuses as of 08/08/2024) Immunizations Name Administration Dates Next Due COVID-19 Whole Virus, Quispe Vac, 2-Dose Series ([employer]) 09/03/2020,08/03/2020 COVID-19 mRNA, LNP-s, No Pre serve, 2-Dose Series ([employer]) 09/02/2020,08/12/2020 HEP A - Hepatitis A (Adult [...] often do you attend chur ch or mormon services? More than 4 times per year 06/01/2020 Do you belong to any clubs o r organizations such as sikh groups, unions, fraternal or athletic groups, or [...] PHQ-2 Score 0 03/08/2019 [facility] [place] of Occupat ional Health - Occupational Stress [...] 08/18/2024 3:00 PM EST Office Visit Cardiology [address] [place] [address] Adrianna Huffman PA-C [address] [place] [address] 08/30/2024 12:00 PM EST Office Visit Gastroenterology, [facility] [address] [place] [address] Sandhya Blair CRNP [address] [place] [address] 11/03/2024 11:00 AM EDT Office Visit Ophthalmology, [facility] [address] [place] [address] Henri Beauchamp DO [address] [place] [address] 12/22/2024 10:00 AM EDT Office Visit [facility] Disorders Ctr [facility] [address] [place] [phone] Corinne Carlin CRNP [address] [place] [address] Scheduled Procedures Name Priority Associated Diagnoses Date/Ti me COLONOSCOPY FLEXIBLE PROXIMA L DIAGNOSTIC Recall History of colonic polyps Health Maintenance Due Date Last Done Comments CKD PHOS USE SMARTSET 42852 1973 Cologuard 2000 Fecal Occult Blood Test [...] 120 11/2022, 01/21/2022, Additional history exists GFR 01/29/2025 08/08/2024, 07/20, 07/25/2024, Additional history exists Pneumococcal Vaccine: 50+ Years (3 of 3 - PCV20 or PCV21) 05/23/2025 05/23/2020, 05/27/2006 Diabetic Eye Exam 06/30/2025 06/30/2024, , 06/30/2024, Additional history exists CKD HGB USE SMARTSET 75555 08/01/202508/08, 08/01/2024, 07/25/2024, Additional history exists Colonoscopy 07/10/2028 07/10/2023, 07/2018, 07/21/2013, Additional history exists Colorectal Cancer [...] filedocumented as of this encounter Care Teams Instructor Private Relationship Specialty Start Date End Date Oxana Willams MD [address] [place] [address] [place] [address] PCP - General Internal Medicine 08/17/23 documented as of this encounter
--- OUTSIDE RECORDS SUMMARY | 2024-09-29 03:38 | External Medical Summary ---
Author Name Unknown Address Unknown Organization K[facility] [address] [facility] [address] [place] [address] Laboratory Report Ordering Provider Test Date Status MONICA FERNANDES 08/15/2024 05:25:00 Final Observation Date Value Abnormality Reference (Units ) Status WBC, Total 08/15/2024 05:25:00 6.18 4.00-10.8 0 (K/uL) Final RBC 08/15/2024 05:25:00 3.09 3.85-5.15 (M/uL) Final Hemoglobin 08/15/2024 05:25:00 9.4 Below low normal 12 .0-15.3 (g/dL) Final HCT 08/15/2024 05:25:00 29.2 Below low normal 36. 0-45.2 (%) Final MCV 08/15/2024 05:25:00 94.5 81.5-97.5 (fL) Final MCH 08/15/2024 05:25:00 30.4 27.0-34.0 (pg) Final MCHC 08/15/2024 05:25:00 32.2 32.0-36.0 (g/dL) Final RDW 08/15/2024 05:25:00 13.9 11.5-15.5 (%) Final Platelets 08/15/2024 05:25:00 104 Below low normal 140 -400 (K/uL) Final MPV 08/15/2024 05:25:00 11.9 6.6-11.1 ( fL) Final Performing Location [facility]ORY [facility] [address] - [address] [place] [address]
--- OUTSIDE RECORDS SUMMARY | 2024-09-29 03:38 | External Medical Summary ---
Author Name Unknown Address Unknown Organization K01:LABORATORY C - [address] [place] [address] Laboratory Report Ordering Provider Test Date Status DOMMONICA 08/15/2024 05:25:00 Final Observation Date Value Abnormality Reference (Units ) Status Ammonia 08/15/2024 05:25:00 131 Above upper panic limits 11-35 (umol/L) Final Performing Location LAB[facility]ATORY [facility] - [address] [place] [address]
--- OUTSIDE RECORDS SUMMARY | 2024-09-29 03:38 | External Medical Summary ---
Author Name Unknown Address Unknown Organization K0G:[facility]ATORY [place] [address] - [address] [place] [address] Laboratory Report Ordering Provider Test Date Status MONICA FERNANDES 08/22/2024 05:28:00 Final Observation Date Value Abnormality Reference (Units ) Status BUN 08/22/2024 05:28:00 42 Above high normal 6-20 (mg/dL) Final Creatinine 08/22/2024 05:28:00 2.1 Above high normal 0.5-1.0 (mg/dL) Final Glomerular filtration rate/1.73 sq M.predicted [Volume Rate/Area] in Serum, Plasma or Blood by Creatinine-based formula (CKD-EPI) 08/22/2024 05:28:00 25 Below low normal >=60 (mL/min) Final eGFR is calculated based on the CKD-EPI 2020 equation. Sodium 08/22/2024 05:28:00 141 135-146 (m mol/L) Final Potassium 08/22/2024 05:28:00 4.7 3.5-5.1 (m mol/L) Final Cl 08/22/2024 05:28:00 107 98-107 (mm ol/L) Final CO2 08/22/2024 05:28:00 27 22-32 (mmo l/L) Final Anion gap 08/22/2024 05:28:00 7 7-15 (mmol /L) Final Glucose 08/22/2024 05:28:00 216 Above high normal 70 -120 (mg/dL) Final Albumin 08/22/2024 05:28:00 2.4 Below low normal 3.8 -5.0 (g/dL) Final AST (Aspartate aminotransferase) 08/22/2024 05:28:00 64 Above high normal 10-35 (U/L) Final Alk Phos 08/22/2024 05:28:00 122 35-130 (U/ L) Final Bilirubin, Total 08/22/2024 05:28:00 0.5 <=1 .2 (mg/dL) Final Calcium 08/22/2024 05:28:00 8.7 8.4-10.2 ( mg/dL) Final Protein 08/22/2024 05:28:00 5.6 Below low normal 6.0 -8.3 (g/dL) Final ALT (Alanine aminotransferase) 08/22/2024 05:28:00 43 Above high normal 10-35 (U/L) Final Performing Location LABORATORY [place] [address] - [address] [facility] [address]
--- OUTSIDE RECORDS SUMMARY | 2024-09-29 03:38 | External Medical Summary | Summary of Care ---
Author Name Unknown Organization [facility] Address 100 [facility] [place] [address] Phone [phone] Care Team Providers Care Traffic Court Magistrate Name Role Phone Oxana Willams MD Primary Care Provider [phone] Encounter Details Date Type Department Care Team (Late st Contact Info) Description 08/22/2024 Orders Only Lab Mobile Phlebotomy [facility] [address] [place] [address] Oxana Willams MD [address] [place] [address] [place] [address] HTN, goal below 140/90*; SMALL (nonalcoholic steatohepatitis) Allergies Active Allergy Reactions [...] as of this encounter (statuses as of 08/22/2024) Medications DIURETIC TITRATION PLANIndications:Aquiles ambriz diastolic congestive heart failure (HCC) If no improvement on day 3, contact heart failure managing provider or [facility] immigration case worker 1 Each 01/19/20 19 Active [...] 3 12/03/19 22 Active OneTouch Delica Plus [id number] ns:Type 2 diabetes mellitus with hemoglobin A1c [...] as of this encounter (statuses as of 08/22/2024) Active Problems Problem Noted Date Diagnosed Date [...] Assessment & Plan (10/16/2021 12:04 PM EDT): [facility] Call: Not taking diuretics 2/2 [...] above regimen Atherosclerotic heart diseas e of [place] coronary artery without angina pectoris 09/08/2019 Assessment [...] obesity with BMI of 45.0-49.9, adult 01/2018 [facility] (current) use of insulin 03/26/2018 Pressure sore [...] since 10/15. 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 DM gastroparesis IBS (irritable bowel syndrome) documented as of this encounter (statuses as of 08/22/2024) Resolved Problems Problem Noted Date Diagnosed Date [...] as of this encounter (statuses as of 08/22/2024) Immunizations Name Administration Dates Next Due COVID-19 Whole Virus, Quispe Vac, 2-Dose Series ([employer]) 09/03/2020,08/03/2020 COVID-19 mRNA, LNP-s, No Pre serve, 2-Dose Series ([employer]) 09/02/2020,08/12/2020 HEP A - Hepatitis A (Adult [...] often do you attend chur ch or scientology services? More than 4 times per year 06/01/2020 Do you belong to any clubs o r organizations such as buddhism groups, unions, fraternal or athletic groups, or [...] PHQ-2 Score 0 03/08/2019 [facility] [place] of Occupat ional Health - Occupational Stress [...] place to sleep or slept in a nursing home (including now)? No 06/01/2020 Comments No [...] Care Team (Late st Contact Info) Description 08/22/2024 5:20 AM EST Laboratory Lab Mobile Phlebotomy [facility] [address] [facility] [place] [address] [place] [address] Arrived 08/30/2024 12:00 PM EST Office Visit Gastroenterology, [facility] [address] [place] [address] Sandhya Blair CRNP [address] [place] [address] 11/03/2024 11:00 AM EDT Office Visit Ophthalmology, [facility] [address] [place] [address] Henri Beauchamp DO [address] [place] [address] 12/22/2024 10:00 AM EDT Office Visit Sleep Disorders Ctr [facility] [address] [place] [phone] Corinne Carlin CRNP [address] [place] [address] 03/30/2025 3:30 PM EDT Office Visit Cardiology [address] [place] [address] Adrianna Huffman PA-C [address] [place] [address] Scheduled Orders Name Type Priority Associated Diagnoses Orde r Schedule CBC Lab Routine HTN, goal below 140/90 SMALL (nonalcoholic steatohepatitis) Expected: 08/22/2024, Expires: 08/22/2025 COMPREHENSIVE METABOLIC PANEL Lab Routine HTN, goal below 140/90 SMALL (nonalcoholic steatohepatitis) Expected: 08/22/2024, Expires: 08/22/2025 AMMONIA Lab Routine HTN, goal below 140/90 SMALL (nonalcoholic steatohepatitis) Expected: 08/22/2024, Expires: 08/22/2025 Scheduled Procedures Name Priority Associated Diagnoses Date/Ti me COLONOSCOPY FLEXIBLE PROXIMA L DIAGNOSTIC Recall History of colonic polyps Health Maintenance Due Date Last Done Comments CKD PHOS USE SMARTSET 11201 1973 Cologuard 2000 Fecal Occult Blood Test [...] 12/0 11/2022, 01/21/2022, Additional history exists GFR 02/12/2025 08/15/2024, 07/21, 08/01/2024, Additional history exists Pneumococcal Vaccine: 50+ Years (3 of 3 - PCV20 or PCV21) 05/23/2025 05/23/2020, 05/27/2006 Diabetic Eye Exam 06/30/2025 06/30/2024, , 06/30/2024, Additional history exists CKD HGB USE SMARTSET 56608 08/15/202508/15, 08/08/2024, 08/01/2024, Additional history exists Colonoscopy 07/10/2028 07/10/2023, 04/0 [...] goiter Thrombocytopenia (HCC) Thrombocytopenia, unspecified Atherosclerosis of [place] coronary artery without angina pectoris, unspecified whether [place] or transplanted heart Chronic diastolic heart failure [...] goal below 140/90- Primary Unspecified essential hypertension SMALL (nonalcoholic steatohepatitis) Other chronic nonalcoholic liver disease documented in this encounter Care Teams Traffic Court Magistrate Relationship Specialty Start Date End Date Oxana Willams MD [address] [place] [address] [place] [address] PCP - General Internal Medicine 08/17/23 documented as of this encounter
--- OUTSIDE RECORDS SUMMARY | 2024-09-29 03:38 | External Medical Summary ---
Author Name Unknown Address Unknown Organization K01:LABORATORY C - [address] [place] [address] Laboratory Report Ordering Provider Test Date Status MONICA FERNANDES 08/22/2024 05:28:00 Final Observation Date Value Abnormality Reference (Units ) Status Ammonia 08/22/2024 05:28:00 89 Above upper panic limits 11-35 (umol/L) Final Performing Location [facility] - [address] [place] [address]
--- OUTSIDE RECORDS SUMMARY | 2024-09-29 03:38 | External Medical Summary | Summary of Care ---
Author Name Unknown Organization [facility] Address 100 [facility] [place] [address] Phone [phone] Care Team Providers Care Industrial Engineering Technologist Name Role Phone Oxana Willams MD Primary Care Provider [phone] Encounter Details Date Type Department Care Team (Late st Contact Info) Description 08/15/2024 Orders Only Lab Mobile Phlebotomy [facility] [address] [place] [address] Oxana Willams MD [address] [place] [address] [place] [address] Hepatic encephalopathy (HCC)* Allergies Active Allergy Reactions Criticality Noted Date [...] as of this encounter (statuses as of 08/15/2024) Medications DIURETIC TITRATION PLANIndications:Aquiles ambriz diastolic congestive heart failure (HCC) If no improvement on day 3, contact heart failure managing provider or [facility] at home supply chain development manager 1 Each 01/19/20 19 Active Medical [...] 3 12/03/19 22 Active OneTouch Delica Plus [id number] ns:Type 2 diabetes mellitus with hemoglobin A1c [...] as of this encounter (statuses as of 08/15/2024) Active Problems Problem Noted Date Diagnosed Date [...] Assessment & Plan (10/16/2021 12:04 PM EDT): [facility] Call: Not taking diuretics 2/2 combination [...] above regimen Atherosclerotic heart diseas e of [place] coronary artery without angina pectoris 09/08/2019 Assessment [...] obesity with BMI of 45.0-49.9, adult 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 Usually takes metolazone on [...] 01/13/13 PSG -- RDI 5.3 [facility] - [place] Gastroesophageal reflux disease without esophagi tis 11/22/2010 Assessment & Plan (05/09/2022 7:26 AM EDT): Sx controlled with ompeprazole DYSLIPIDEMIA, GOAL LDL BELOW 100 06/26/2009 Overview (06/26/2009): Per Lipid Taxonomy. DM gastroparesis IBS (irritable bowel syndrome) documented as of this encounter (statuses as of 08/15/2024) Resolved Problems Problem Noted Date Diagnosed Date [...] 09/17/200901/2018 Overview (10/09/2009): sellile serrated adenoma, [facility], f/u in colonoscopy in 5 yrs [...] as of this encounter (statuses as of 08/15/2024) Immunizations Name Administration Dates Next Due COVID-19 Whole Virus, Quispe Vac, 2-Dose Series ([employer]) 09/03/2020,08/03/2020 COVID-19 mRNA, LNP-s, No Pre serve, 2-Dose Series ([employer] 09/02/2020,08/12/2020 HEP A - Hepatitis A (Adult [...] any clubs o r organizations such as lutheran groups, unions, fraternal or athletic groups, or [...] Answer Date Recorded PHQ-2 Score 0 03/08/2019 [facility] of Occupat ional Health - Occupational Stress [...] Care Team (Late st Contact Info) Description 08/15/2024 5:10 AM EST Laboratory Lab Mobile Phlebotomy [facility] [address] [facility] [place] [address] [place] [address] Arrived 08/18/2024 3:00 PM EST Office Visit Cardiology [address] [place] [address] Adrianna Huffman PA-C [address] [place] [address] 08/30/2024 12:00 PM EST Office Visit Gastroenterology, [facility] [address] [place] [address] Sandhya Blair CRNP [address] [place] [address] 11/03/2024 11:00 AM EDT Office Visit Ophthalmology, [facility] [address] [place] [address] Henri Beauchamp DO [address] [place] [address] 12/22/2024 10:00 AM EDT Office Visit Sleep Disorders Ctr [facility] [address] [place] [phone] Corinne Carlin CRNP [address] [place] [address] Scheduled Orders Name Type Priority Associated Diagnoses Orde r Schedule CBC Lab Routine Hepatic encephalopathy (HCC) Expected: 08/15/2024, Expires: 08/15/2025 COMPREHENSIVE METABOLIC PANEL Lab Routine Hepatic encephalopathy (HCC) Expected: 08/15/2024, Expires: 08/15/2025 AMMONIA Lab Routine Hepatic encephalopathy (HCC) Expected: 08/15/2024, Expires: 08/15/2025 Scheduled Procedures Name Priority Associated Diagnoses Date/Ti me COLONOSCOPY FLEXIBLE PROXIMA L DIAGNOSTIC Recall History of colonic polyps Health Maintenance Due Date Last Done Comments CKD PHOS USE SMARTSET 74320 1973 Cologuard 2000 Fecal Occult Blood Test [...] 12/23/2023, 1211/2022, 01/21/2022, Additional history exists GFR 02/05/2025 08/08/2024, 07/20, 07/25/2024, Additional history exists Pneumococcal Vaccine: 50+ Years (3 of 3 - PCV20 or PCV21) 05/23/2025 05/23/2020, 05/27/2006 Diabetic Eye Exam 06/30/2025 06/30/2024, , 06/30/2024, Additional history exists CKD HGB USE SMARTSET 33275 08/08/202508/08, 08/01/2024, 07/25/2024, Additional history exists Colonoscopy 07/10/2028 07/10/2023, 04/0 [...] goiter Thrombocytopenia (HCC) Thrombocytopenia, unspecified Atherosclerosis of [place] coronary artery without angina pectoris, unspecified whether [place] or transplanted heart Chronic diastolic heart failure [...] of 45.0-49.9, adult (HCC) Morbid obesity Hepatic encephalopathy (HCC)- Primary Hepatic encephalopathy documented in this encounter Care Teams Industrial Engineering Technologist Relationship Specialty Start Date End Date Oxana Willams MD [address] [place] [address] [place] [address] PCP - General Internal Medicine 08/17/23 documented as of this encounter
--- OUTSIDE RECORDS SUMMARY | 2024-09-29 03:38 | External Medical Summary ---
Author Name Unknown Address Unknown Organization K0G:LABORATORY [place] [address] - [address] [place] [address] Laboratory Report Ordering Provider Test Date Status MONICA FERNANDES 08/15/2024 05:25:00 Final Observation Date Value Abnormality Reference (Units ) Status BUN 08/15/2024 05:25:00 40 Above high normal 6-20 (mg/dL) Final Creatinine 08/15/2024 05:25:00 2.3 Above high normal 0.5-1.0 (mg/dL) Final Glomerular filtration rate/1.73 sq M.predicted [Volume Rate/Area] in Serum, Plasma or Blood by Creatinine-based formula (CKD-EPI) 08/15/2024 05:25:00 22 Below low normal >=60 (mL/min) Final eGFR is calculated based on the CKD-EPI 2020 equation. Sodium 08/15/2024 05:25:00 141 135-146 (m mol/L) Final Potassium 08/15/2024 05:25:00 4.8 3.5-5.1 (m mol/L) Final Cl 08/15/2024 05:25:00 107 98-107 (mm ol/L) Final CO2 08/15/2024 05:25:00 25 22-32 (mmo l/L) Final Anion gap 08/15/2024 05:25:00 9 7-15 (mmol /L) Final Glucose 08/15/2024 05:25:00 153 Above high normal 70 -120 (mg/dL) Final Albumin 08/15/2024 05:25:00 2.5 Below low normal 3.8 -5.0 (g/dL) Final AST (Aspartate aminotransferase) 08/15/2024 05:25:00 56 Above high normal 10-35 (U/L) Final Alk Phos 08/15/2024 05:25:00 111 35-130 (U/ L) Final Bilirubin, Total 08/15/2024 05:25:00 0.6 <=1 .2 (mg/dL) Final Calcium 08/15/2024 05:25:00 8.8 8.4-10.2 ( mg/dL) Final Protein 08/15/2024 05:25:00 5.9 Below low normal 6.0 -8.3 (g/dL) Final ALT (Alanine aminotransferase) 08/15/2024 05:25:00 39 Above high normal 10-35 (U/L) Final Performing Location LABORATORY [place] [address] - [address] [facility] [address]
--- OUTSIDE RECORDS SUMMARY | 2024-09-29 03:38 | External Medical Summary ---
Author Name Unknown Address Unknown Organization K0G:LAB[facility]ATORY [facility] [address] - [address] [place] [address] Laboratory Report Ordering Provider Test Date Status MONICA FERNANDES 08/22/2024 05:28:00 Final Observation Date Value Abnormality Reference (Units ) Status WBC, Total 08/22/2024 05:28:00 5.01 4.00-10.8 0 (K/uL) Final RBC 08/22/2024 05:28:00 2.99 3.85-5.15 (M/uL) Final Hemoglobin 08/22/2024 05:28:00 9.3 Below low normal 12 .0-15.3 (g/dL) Final HCT 08/22/2024 05:28:00 28.5 Below low normal 36. 0-45.2 (%) Final MCV 08/22/2024 05:28:00 95.3 81.5-97.5 (fL) Final MCH 08/22/2024 05:28:00 31.1 27.0-34.0 (pg) Final MCHC 08/22/2024 05:28:00 32.6 32.0-36.0 (g/dL) Final RDW 08/22/2024 05:28:00 13.9 11.5-15.5 (%) Final Platelets 08/22/2024 05:28:00 82 Below low normal 140 -400 (K/uL) Final MPV 08/22/2024 05:28:00 11.9 6.6-11.1 ( fL) Final Performing Location LAB[facility]ATORY [facility] [address] - [address] [place] [address]
--- OUTSIDE RECORDS SUMMARY | 2024-09-29 03:39 | External Medical Summary ---
Author Name Unknown Address Unknown Organization K0G:[facility] [place] [address] [place] [address] Laboratory Report Ordering Provider Test Date Status MONICA FERNANDES 08/08/2024 05:20:00 Final Observation Date Value Abnormality Reference (Units ) Status BUN 08/08/2024 05:20:00 40 Above high normal 6-20 (mg/dL) Final Creatinine 08/08/2024 05:20:00 2.4 Above high normal 0.5-1.0 (mg/dL) Final Glomerular filtration rate/1.73 sq M.predicted [Volume Rate/Area] in Serum, Plasma or Blood by Creatinine-based formula (CKD-EPI) 08/08/2024 05:20:00 21 Below low normal >=60 (mL/min) Final eGFR is calculated based on the CKD-EPI 2020 equation. Sodium 08/08/2024 05:20:00 140 135-146 (m mol/L) Final Potassium 08/08/2024 05:20:00 5.0 3.5-5.1 (m mol/L) Final Cl 08/08/2024 05:20:00 106 98-107 (mm ol/L) Final CO2 08/08/2024 05:20:00 25 22-32 (mmo l/L) Final Anion gap 08/08/2024 05:20:00 9 7-15 (mmol /L) Final Glucose 08/08/2024 05:20:00 209 Above high normal 70 -120 (mg/dL) Final Albumin 08/08/2024 05:20:00 2.6 Below low normal 3.8 -5.0 (g/dL) Final AST (Aspartate aminotransferase) 08/08/2024 05:20:00 59 Above high normal 10-35 (U/L) Final Alk Phos 08/08/2024 05:20:00 112 35-130 (U/ L) Final Bilirubin, Total 08/08/2024 05:20:00 0.9 <=1 .2 (mg/dL) Final Calcium 08/08/2024 05:20:00 9.1 8.4-10.2 ( mg/dL) Final Protein 08/08/2024 05:20:00 6.2 6.0-8.3 (g /dL) Final ALT (Alanine aminotransferase) 08/08/2024 05:20:00 43 Above high normal 10-35 (U/L) Final Performing Location [facility] [address] [facility] [address]
--- OUTSIDE RECORDS SUMMARY | 2024-09-29 03:39 | External Medical Summary | Summary of Care ---
Author Name Unknown Organization [facility] Address [address] [facility] [place] [address] Phone [phone] Care Team Providers Care Air Analyst Name Role Phone Oxana Willams MD Primary Care Provider [phone] [phone] Encounter Details Date Type Department Care Team (Late st Contact Info) Description 07/25/2024 Orders Only Lab Mobile Phlebotomy [facility] [address] [employer] [place] [address] Oxana Willams MD [address] [place] [address] [place] [address] SMALL (nonalcoholic steatohepatitis)*; Chronic kidney disease (CKD); Pancytopenia (HCC) Allergies Active Allergy Reactions Criticality Noted [...] as of this encounter (statuses as of 07/25/2024) Medications DIURETIC TITRATION PLANIndications:Aquiles ambriz diastolic congestive heart failure (HCC) If no improvement on day 3, contact heart failure managing provider or Radha at home hospice case manager 1 Each 01/19/20 19 Active [...] 3 12/03/19 22 Active OneTouch Delica Plus [id number] ns:Type 2 diabetes mellitus with hemoglobin A1c [...] on tongue. 20 Tablet 06/17/20 22 Active rifAXIMin 550 MG Oral Tablet Take 1 Tablet by mouth in the morning and 1 Tablet before bedtime. Active Ascorbic Acid 500 MG Oral Tablet [...] Stomahesive Protective Powder Use as directed. Active Ventolin HFA 108 (90 Base) MCG/ACT Inhalation Aerosol Solution Inhale by mouth. Inhale 2 Puffs by mouth every 4 hours as needed for Pain, Chest, Cough or Shortness of Breath Active Nadolol 20 MG Oral Tablet (Corgard) Take 0.5 Tablets by mouth in the morning. Hold if systolic BP is < 100 or pulse is < 60. Active Nitroglycerin 0.3 MG Sublingual Tablet Sublingual (Nitrostat) Dissolve 1 tablet under the tongue once if needed for esophageal spasm Active Probiotic 250 MG Oral Capsule Take 1 Capsule by mouth daily. Active [facility] Nasal Mist 0.9 % Nasal Aerosol Solution (Saline) Administer into nostril. Active Premarin 0.625 MG/GM Vaginal Cream 07/15/20 23 Active Polyethylene Glycol 3350 17 GM/SCOOP Oral Powder (Miralax) 07/08/20 23 Active Lactulose 10 GM/15ML Oral Solution [...] 30G X 5 MM 02/08/20 24 Active Lactulose Encephalopathy 10 GM/15ML Oral Solution 01/21/20 24 Active Mirtazapine 15 MG Oral Tablet (Remeron) 01/19/20 24 Active traMADol HCl 50 MG Oral Tablet (Ultram) 03/02/20 24 Active Calamine-Zinc Oxide 8-8 % External Lotion Apply topically to affected area. Apply to right lower buttocks Active Spironolactone 25 MG Oral Tablet (Aldactone) Take 1 Tablet by mouth in the morning. 03/03/20 Active Torsemide 20 MG Oral Tablet (Demadex) Take 1 Tablet by mouth in the morning. 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 DM gastroparesis IBS (irritable bowel syndrome) documented as of this encounter (statuses as of 07/25/2024) Resolved Problems Problem Noted Date Diagnosed Date [...] as of this encounter (statuses as of 07/25/2024) Immunizations Name Administration Dates Next Due COVID-19 Whole Virus, Quispe Vac, 2-Dose Series ([employer]) 09/03/2020,08/03/2020 COVID-19 mRNA, LNP-s, No Pre serve, 2-Dose Series ([employer]) 09/02/2020,08/12/2020 HEP A - Hepatitis A (Adult [...] often do you attend chur ch or yarsani services? More than 4 times per year 06/01/2020 Do you belong to any clubs o r organizations such as quaker groups, unions, fraternal or athletic groups, or [...] Answer Date Recorded PHQ-2 Score 0 03/08/2019 [facility] of Occupat ional Health - Occupational Stress [...] Care Team (Late st Contact Info) Description 07/25/2024 5:00 AM EST Laboratory Lab Mobile Phlebotomy [facility] [address] [facility] [place] [address] [place] [address] Arrived 08/05/2024 10:30 AM EST Office Visit Ophthalmology, [facility] [address] [place] [address] Henri Beauchamp DO [address] [place] [address] 08/18/2024 3:00 PM EST Office Visit Cardiology [address] [place] [address] Adrianna Huffman PA-C [address] [place] [address] 08/30/2024 12:00 PM EST Office Visit Gastroenterology, [facility] [address] [place] [address] Sandhya Blair CRNP [address] [place] [address] 12/22/2024 10:00 AM EDT Office Visit Sleep Disorders Ctr [facility] [address] [place] [phone] Corinne Carlin CRNP [address] [place] [address] Scheduled Orders Name Type Priority Associated Diagnoses Orde r Schedule CBC Lab Routine SMALL (nonalcoholic steatohepatitis) Chronic kidney disease (CKD) Pancytopenia (HCC) Expected: 07/25/2024, Expires: 07/25/2025 COMPREHENSIVE METABOLIC PANEL Lab Routine SMALL (nonalcoholic steatohepatitis) Chronic kidney disease (CKD) Pancytopenia (HCC) Expected: 07/25/2024, Expires: 07/25/2025 AMMONIA Lab Routine SMALL (nonalcoholic steatohepatitis) Chronic kidney disease (CKD) Pancytopenia (HCC) Expected: 07/25/2024, Expires: 07/25/2025 Scheduled Procedures Name Priority Associated Diagnoses Date/Ti me COLONOSCOPY FLEXIBLE PROXIMA L DIAGNOSTIC Recall History of colonic polyps Health Maintenance Due Date Last Done Comments CKD PHOS USE SMARTSET 37220 1973 Cologuard 2000 Fecal Occult Blood Test [...] 12/0 11/2022, 01/21/2022, Additional history exists GFR 01/16/2025 07/18/2024, 12/2 09/2023, 07/08/2024, Additional history exists Pneumococcal Vaccine: 50+ Years (3 of 3 - PCV20 or PCV21) 05/23/2025 05/23/2020, 05/27/2006 Diabetic Eye Exam 06/30/2025 06/30/2024, , 06/30/2024, Additional history exists CKD HGB USE SMARTSET 18892 07/11/202507/11, 07/08/2024, 07/04/2024, Additional history exists Colonoscopy 07/10/2028 07/10/2023, 04/0 [...] goiter Thrombocytopenia (HCC) Thrombocytopenia, unspecified Atherosclerosis of [place] coronary artery without angina pectoris, unspecified whether [place] or transplanted heart Chronic diastolic heart [...] steatohepatitis)- Primary Other chronic nonalcoholic liver disease Chronic kidney disease (CKD) Chronic kidney disease, unspecified Pancytopenia (HCC) Other pancytopenia documented in this encounter Care Teams Air Analyst Relationship Specialty Start Date End Date Oxana Willams MD [address] [place] [address] [place] [address] PCP - General Internal Medicine 08/17/23 documented as of this encounter
--- OUTSIDE RECORDS SUMMARY | 2024-09-29 03:39 | External Medical Summary ---
Author Name Unknown Address Unknown Organization K01:[facility] - [address] [place] [facility] [place] [address] Laboratory Report Ordering Provider Test Date Status MONICA FERNANDES 08/08/2024 05:20:00 Final Observation Date Value Abnormality Reference (Units ) Status Ammonia 08/08/2024 05:20:00 107 Above upper panic limits 11-35 (umol/L) Final Performing Location [facility] - [address] [place] [address]
--- OUTSIDE RECORDS SUMMARY | 2024-09-29 03:39 | External Medical Summary ---
Author Name Unknown Address Unknown Organization K0G:[facility] [place] [facility] [address] - [address] [place] [address] Laboratory Report Ordering Provider Test Date Status MONICA FERNANDES 08/01/2024 05:28:00 Final Observation Date Value Abnormality Reference (Units ) Status BUN 08/01/2024 05:28:00 38 Above high normal 6-20 (mg/dL) Final Creatinine 08/01/2024 05:28:00 2.4 Above high normal 0.5-1.0 (mg/dL) Final Glomerular filtration rate/1.73 sq M.predicted [Volume Rate/Area] in Serum, Plasma or Blood by Creatinine-based formula (CKD-EPI) 08/01/2024 05:28:00 22 Below low normal >=60 (mL/min) Final eGFR is calculated based on the CKD-EPI 2020 equation. Sodium 08/01/2024 05:28:00 141 135-146 (m mol/L) Final Potassium 08/01/2024 05:28:00 4.6 3.5-5.1 (m mol/L) Final Cl 08/01/2024 05:28:00 106 98-107 (mm ol/L) Final CO2 08/01/2024 05:28:00 27 22-32 (mmo l/L) Final Anion gap 08/01/2024 05:28:00 8 7-15 (mmol /L) Final Glucose 08/01/2024 05:28:00 196 Above high normal 70 -120 (mg/dL) Final Albumin 08/01/2024 05:28:00 2.6 Below low normal 3.8 -5.0 (g/dL) Final AST (Aspartate aminotransferase) 08/01/2024 05:28:00 57 Above high normal 10-35 (U/L) Final Alk Phos 08/01/2024 05:28:00 109 35-130 (U/ L) Final Bilirubin, Total 08/01/2024 05:28:00 0.9 <=1 .2 (mg/dL) Final Calcium 08/01/2024 05:28:00 8.9 8.4-10.2 ( mg/dL) Final Protein 08/01/2024 05:28:00 5.8 Below low normal 6.0 -8.3 (g/dL) Final ALT (Alanine aminotransferase) 08/01/2024 05:28:00 33 10-35 (U/L) Foster mayo Performing Location [facility] [place] [address] - [address] [facility] [address]
--- OUTSIDE RECORDS SUMMARY | 2024-09-29 03:39 | External Medical Summary ---
Author Name Unknown Address Unknown Organization K0G:[facility] [place] [facility] [address] - [address] [place] [address] Laboratory Report Ordering Provider Test Date Status MONICA FERNANDES 07/25/2024 05:20:00 Final Observation Date Value Abnormality Reference (Units ) Status BUN 07/25/2024 05:20:00 37 Above high normal 6-20 (mg/dL) Final Creatinine 07/25/2024 05:20:00 2.3 Above high normal 0.5-1.0 (mg/dL) Final Glomerular filtration rate/1.73 sq M.predicted [Volume Rate/Area] in Serum, Plasma or Blood by Creatinine-based formula (CKD-EPI) 07/25/2024 05:20:00 22 Below low normal >=60 (mL/min) Final eGFR is calculated based on the CKD-EPI 2020 equation. Sodium 07/25/2024 05:20:00 140 135-146 (m mol/L) Final Potassium 07/25/2024 05:20:00 4.2 3.5-5.1 (m mol/L) Final Cl 07/25/2024 05:20:00 104 98-107 (mm ol/L) Final CO2 07/25/2024 05:20:00 26 22-32 (mmo l/L) Final Anion gap 07/25/2024 05:20:00 10 7-15 (mmol /L) Final Glucose 07/25/2024 05:20:00 189 Above high normal 70 -120 (mg/dL) Final Albumin 07/25/2024 05:20:00 2.5 Below low normal 3.8 -5.0 (g/dL) Final AST (Aspartate aminotransferase) 07/25/2024 05:20:00 44 Above high normal 10-35 (U/L) Final Alk Phos 07/25/2024 05:20:00 108 35-130 (U/ L) Final Bilirubin, Total 07/25/2024 05:20:00 0.8 <=1 .2 (mg/dL) Final Calcium 07/25/2024 05:20:00 8.9 8.4-10.2 ( mg/dL) Final Protein 07/25/2024 05:20:00 5.7 Below low normal 6.0 -8.3 (g/dL) Final ALT (Alanine aminotransferase) 07/25/2024 05:20:00 28 10-35 (U/L) Foster mayo Performing Location [facility] [place] [address] [facility] [address]
--- OUTSIDE RECORDS SUMMARY | 2024-09-29 03:39 | External Medical Summary | Summary of Care ---
Author Name Unknown Organization [facility] Address [address] [facility] [address] Phone [phone] Care Team Providers Care Data Recovery Planner Name Role Phone Oxana Willams MD Primary Care Provider [phone] [phone] Reason for Visit * Reason Onset Date Comments Test Results 07/29/2024 Titration study, sleep Encounter Details Date Type Department Care Team (Late st Contact Info) Description 07/29/2024 Telephone [facility] [address] [facility] [address] Corinne Carlin CRNP [address] [facility] [address] Test Results (Titration study, sleep) Allergies Active Allergy Reactions Criticality Noted Date [...] as of this encounter (statuses as of 07/29/2024) Medications DIURETIC TITRATION PLANIndications:Aquiles ambriz diastolic congestive [...] 3 12/03/19 22 Active OneTouch Delica Plus [id number] ns:Type 2 diabetes mellitus with hemoglobin A1c [...] in the morning. 90 Tablet 3 03/03/20 Active documented as of this encounter (statuses as of 07/29/2024) Active Problems Problem Noted Date Diagnosed Date [...] Assessment & Plan (10/16/2021 12:04 PM EDT): [facility] Call: Not taking diuretics 2/2 combination [...] above regimen Atherosclerotic heart diseas e of [place] coronary artery without angina pectoris 09/08/2019 Assessment [...] obesity with BMI of 45.0-49.9, adult 01/2018 longterm (current) use of insulin 03/26/2018 Pressure sore [...] 01/13/13 PSG -- RDI 5.3 AHP - [place] Gastroesophageal reflux disease without esophagi tis 11/22/2010 Assessment & Plan (05/09/2022 7:26 AM EDT): Sx controlled with ompeprazole DYSLIPIDEMIA, GOAL LDL BELOW 100 06/26/2009 Overview (06/26/2009): Per Lipid Taxonomy. DM gastroparesis IBS (irritable bowel syndrome) documented as of this encounter (statuses as of 07/29/2024) Resolved Problems Problem Noted Date Diagnosed Date [...] colon 09/17/200901/2018 Overview (10/09/2009): sellile serrated adenoma, [facility], f/u in colonoscopy in 5 yrs Type [...] as of this encounter (statuses as of 07/29/2024) Immunizations Name Administration Dates Next Due COVID-19 Whole Virus, Quispe Vac, 2-Dose Series ([employer]) 09/03/2020,08/03/2020 COVID-19 mRNA, LNP-s, No Pre serve, 2-Dose Series ([employer]) 09/02/2020,08/12/2020 HEP A - Hepatitis A (Adult [...] How often do you attend chur or christian services? More than 4 times [...] Answer Date Recorded PHQ-2 Score 0 03/08/2019 [facility] of Occupat ional Health - Occupational Stress [...] place to sleep or slept in a longterm (including now)? No 06/01/2020 Comments No Sex [...] encounter Miscellaneous Notes * Telephone Encounter - Padmini Billings LPN - 07/29/2024 8:28 AM EST Message relayed to darin Santiago at [facility]. * Telephone Encounter - Padmini Billings LPN - 07/29/2024 8:24 AM EST ----- Message from Corinne Carlin sent at 07/29/2024 8:02 AM EST ----- Please notify patient. Titration PAP study reviewed showing adequate treatment on her current CPAP settings. No low oxygen. She should continue CPAP as currently prescribed. documented in this encounter Plan of Treatment Upcoming Encounters Date Type Department Care Team (Late st Contact Info) Description 08/05/2024 10:30 AM EST Office Visit Ophthalmology, [facility] [address] [place] [address] Henri Beauchamp DO [address] [place] [address] 08/18/2024 3:00 PM EST Office Visit Cardiology [address] [place] [address] Adrianna Huffman PA-C [address] [place] [address] 08/30/2024 12:00 PM EST Office Visit Gastroenterology, [facility] [address] [place] [address] Sandhya Blair CRNP [address] [place] [address] 12/22/2024 10:00 AM EDT Office Visit Sleep Disorders Ctr [facility] [address] [place] [phone] Corinne Carlin CRNP [address] [place] [address] Scheduled Procedures Name Priority Associated Diagnoses Date/Ti me COLONOSCOPY FLEXIBLE PROXIMA L DIAGNOSTIC Recall History of colonic polyps Health Maintenance Due Date Last Done Comments CKD PHOS USE SMARTSET 09645 1973 Cologuard 2000 Fecal Occult Blood Test [...] 12/0 11/2022, 01/21/2022, Additional history exists GFR 01/22/2025 07/25/2024, 06/21, 07/11/2024, Additional history exists Pneumococcal Vaccine: 50+ Years (3 of 3 - PCV20 or PCV21) 05/23/2025 05/23/2020, 05/27/2006 Diabetic Eye Exam 06/30/2025 06/30/2024, , 06/30/2024, Additional history exists CKD HGB USE SMARTSET 62324 07/25/202507/25, 07/11/2024, 07/08/2024, Additional history exists Colonoscopy 07/10/2028 07/10/2023, 04/0 [...] filedocumented as of this encounter Care Teams Data Recovery Planner Relationship Specialty Start Date End Date Oxana Willams MD [address] [place] [address] [place] [address] PCP - General Internal Medicine 08/17/23 documented as of this encounter
--- OUTSIDE RECORDS SUMMARY | 2024-09-29 03:39 | External Medical Summary | Summary of Care ---
Author Name Unknown Organization [facility] Address [address] [facility] [place] [address] Phone [phone] Care Team Providers Care Mri Supervisor Name Role Phone Oxana Willams MD Primary Care Provider [phone] [phone] Encounter Details Date Type Department Care Team (Late st Contact Info) Description 08/08/2024 Orders Only Lab Mobile Phlebotomy [facility] [address] [employer] [place] [address] Oxana Willams MD [address] [place] [address] [place] [address] SMALL (nonalcoholic steatohepatitis)*; CHF (congestive heart failure) (HCC) Allergies Active Allergy Reactions Criticality Noted [...] managing provider or [facility] at home case briefer 1 Each 01/19/20 19 Active Medical Compression [...] 3 12/03/19 22 Active OneTouch Delica Plus [id number] ns:Type 2 diabetes mellitus with hemoglobin A1c [...] Assessment & Plan (10/16/2021 12:04 PM EDT): [facility] Call: Not taking diuretics 2/2 combination of [...] above regimen Atherosclerotic heart diseas e of [place] coronary artery without angina pectoris 09/08/2019 Assessment [...] obesity with BMI of 45.0-49.9, adult 01/2018 jail (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 -currently on torsemide 100 mg daily, metolazone, 5 mg m, , , and spironolactone 100 mg daily -pending blood work. May hold Thursday's dose of metolazone. Assessment & Plan (10/22/2021 8:32 AM EDT): Weight gain in symptoms after patient has been out diuretics since 10/15. Is able to pear picker new medication today. Usually takes metolazone [...] 01/13/13 PSG -- RDI 5.3 AHP - [place] Gastroesophageal reflux disease without esophagi tis 11/22/2010 [...] COVID-19 Whole Virus, Quispe Vac, 2-Dose Series ([employer]) 09/03/2020,08/03/2020 COVID-19 mRNA, LNP-s, No Pre serve, 2-Dose Series ([employer]) 09/02/2020,08/12/2020 HEP A - Hepatitis A (Adult [...] Hd, 65+ Yrs 04/10/2020 Seasonal Influenza, Quadriva mehdi, No Preserve, IM 04/08/2017,04/18/2016,06/11/2015 TDAP, Age 7 [...] often do you attend chur ch or congregation services? More than 4 times per year [...] Answer Date Recorded PHQ-2 Score 0 03/08/2019 [facility] of Occupat ional Health - Occupational Stress [...] place to sleep or slept in a prison (including now)? No 06/01/2020 Comments No Sex [...] Team (Late st Contact Info) Description 08/08/2024 5:20 AM EST Laboratory Lab Mobile Phlebotomy [facility] [address] [facility] [place], [place] [id number] [address] [place] [address] Arrived 08/18/2024 3:00 PM EST Office Visit Cardiology [address] [place] [address] Adrianna Huffman PA-C [address] [place] [address] 08/30/2024 12:00 PM EST Office Visit Gastroenterology, [facility] [address] [place] [address] Sandhya Blair CRNP [address] [place] [address] 11/03/2024 11:00 AM EDT Office Visit Ophthalmology, [facility] [address] [place] [address] Henri Beauchamp DO [address] [place] [address] 12/22/2024 10:00 AM EDT Office Visit Sleep Disorders [facility] [address] [place] [phone] Croinne Carlin CRNP [address] [place] [address] Scheduled Orders Name Type Priority Associated Diagnoses Orde r Schedule AMMONIA Lab Routine SMALL (nonalcoholic steatohepatitis) CHF (congestive heart failure) (HCC) Expected: 08/08/2024, Expires: 08/08/2025 COMPREHENSIVE METABOLIC PANEL Lab Routine SMALL (nonalcoholic steatohepatitis) CHF (congestive heart failure) (HCC) Expected: 08/08/2024, Expires: 08/08/2025 CBC Lab Routine SMALL (nonalcoholic steatohepatitis) CHF (congestive heart failure) (HCC) Expected: 08/08/2024, Expires: 08/08/2025 Scheduled Procedures Name Priority Associated Diagnoses Date/Ti me COLONOSCOPY FLEXIBLE PROXIMA L DIAGNOSTIC Recall History of colonic polyps Health Maintenance Due Date Last Done Comments CKD PHOS USE SMARTSET 87718 1973 Cologuard 2000 Fecal Occult Blood Test [...] 12/0 11/2022, 01/21/2022, Additional history exists GFR 01/29/2025 08/01/2024, 01/0 12/2024, 07/18/2024, Additional history exists Pneumococcal Vaccine: 50+ Years (3 of 3 - PCV20 or PCV21) 05/23/2025 05/23/2020, 05/27/2006 Diabetic Eye Exam 06/30/2025 06/30/2024, , 06/30/2024, Additional history exists CKD HGB USE SMARTSET 98885 08/01/202508/01, 07/25/2024, 07/11/2024, Additional history exists Colonoscopy 07/10/2028 07/10/2023, 04/0 [...] goiter Thrombocytopenia (HCC) Thrombocytopenia, unspecified Atherosclerosis of [place] coronary artery without angina pectoris, unspecified whether [place] or transplanted heart Chronic diastolic heart failure [...] steatohepatitis)- Primary Other chronic nonalcoholic liver disease CHF (congestive heart failure) (HCC) Congestive heart failure, unspecified documented in this encounter Care Teams Mri Supervisor Relationship Specialty Start Date End Date Oxana Willams MD [address] [place] [address] [place] [address] PCP - General Internal Medicine 08/17/23 documented as of this encounter
--- OUTSIDE RECORDS SUMMARY | 2024-09-29 03:39 | External Medical Summary ---
Author Name Unknown Address Unknown Organization K01:LABORATORY C - [address] [place] [address] Laboratory Report Ordering Provider Test Date Status DOMMONICA 08/01/2024 05:28:00 Final Observation Date Value Abnormality Reference (Units ) Status Ammonia 08/01/2024 05:28:00 119 Above upper panic limits 11-35 (umol/L) Final Performing Location [facility] - [address] [place] [address]
--- OUTSIDE RECORDS SUMMARY | 2024-09-29 03:39 | External Medical Summary | Summary of Care ---
Author Name Unknown Organization [facility] Address [address] [place] [address] Phone [phone] Care Team Providers Care Batch Tank Controller Name Role Phone Oxana Willams MD Primary Care Provider [phone] Reason for Visit * Reason Comments Review Sleep Study CPAP titration Encounter Details Date Type Department Care Team (Late st Contact Info) Description 06/29/2024 8:30 PM EST PulmDiagnostic Sleep Lab, [facility] [address] [place] [address] [place], Sleep Med Night Sleep Mo [address] [place] [address] Obstructive sleep apnea* Allergies Active Allergy Reactions Criticality Noted Date [...] 3, contact heart failure managing provider or [facility] at home therapeutic case manager 1 Each 01/19/20 19 Active [...] 3 12/03/19 22 Active OneTouch Delica Plus [id number] ns:Type 2 diabetes mellitus with hemoglobin A1c [...] Assessment & Plan (10/16/2021 12:04 PM EDT): [facility] Call: Not taking diuretics 2/2 combination of [...] above regimen Atherosclerotic heart diseas e of [place] coronary artery without angina pectoris 09/08/2019 Assessment [...] obesity with BMI of 45.0-49.9, adult 01/2018 rn long term care (current) use of insulin 03/26/2018 Pressure [...] diuretics since 10/15. 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 Usually takes metolazone [...] 01/13/13 PSG -- RDI 5.3 [facility] - [place] Gastroesophageal reflux disease without esophagi tis 11/22/2010 [...] colon 09/17/200901/2018 Overview (10/09/2009): sellile serrated adenoma, [facility], f/u in colonoscopy in 5 [...] COVID-19 Whole Virus, Quispe Vac, 2-Dose Series ([employer]) 09/03/2020,08/03/2020 COVID-19 mRNA, LNP-s, No Pre serve, 2-Dose Series ([employer]) 09/02/2020,08/12/2020 HEP A - Hepatitis A (Adult [...] How often do you attend chur or jainism services? More than 4 times per year 06/01/2020 Do you belong to any clubs o r organizations such as jehovah's witness groups, unions, fraternal or athletic groups, or [...] Answer Date Recorded PHQ-2 Score 0 03/08/2019 [facility] of Occupat ional Health - Occupational Stress [...] place to sleep or slept in a [place] health care facility (including now)? No 06/01/2020 Comments No Sex [...] as of this encounter Progress Notes * Ashley Tejada DO - 07/25/2024 2:18 PM EST PSG report to be scanned into [employer]. documented in this encounter Plan of Treatment Upcoming Encounters Date Type Department Care Team (Late st Contact Info) Description 08/05/2024 10:30 AM EST Office Visit Ophthalmology, [facility] [address] [place] [address] Henri Beauchamp DO [address] [place] [address] 08/18/2024 3:00 PM EST Office Visit Cardiology [address] [place] [address] Adrianna Huffman PA-C [address] [place] [address] 08/30/2024 12:00 PM EST Office Visit Gastroenterology, [facility] [address] [place] [address] Sandhya Blair CRNP [address] [place] [address] 12/22/2024 10:00 AM EDT Office Visit Sleep Disorders Ctr [facility] [address] [place] [phone] Corinne Carlin CRNP [address] [place] [address] Scheduled Procedures Name Priority Associated Diagnoses Date/Ti me COLONOSCOPY FLEXIBLE PROXIMA L DIAGNOSTIC Recall History of colonic polyps Health Maintenance Due Date Last Done Comments CKD PHOS USE SMARTSET 02413 1973 Cologuard 2000 Fecal Occult Blood Test [...] 120 11/2022, 01/21/2022, Additional history exists GFR 01/22/2025 07/25/2024, 06/21, 07/11/2024, Additional history exists Pneumococcal Vaccine: 50+ Years (3 of 3 - PCV20 or PCV21) 05/23/2025 05/23/2020, 05/27/2006 Diabetic Eye Exam 06/30/2025 06/30/2024, , 06/30/2024, Additional history exists CKD HGB USE SMARTSET 47436 07/25/202507/25, 07/11/2024, 07/08/2024, Additional history exists Colonoscopy [...] goiter Thrombocytopenia (HCC) Thrombocytopenia, unspecified Atherosclerosis of [place] coronary artery without angina pectoris, unspecified whether little traverse or transplanted heart Chronic diastolic heart failure [...] BMI of 45.0-49.9, adult (HCC) Morbid obesity Obstructive sleep apnea- Primary Obstructive sleep apnea (adult) (pediatric) documented in this encounter Care Teams Batch Tank Controller Relationship Specialty Start Date End Date Oxana Willams MD [address] [place] [address] [place] [address] PCP - General Internal Medicine 08/17/23 documented as of this encounter
--- OUTSIDE RECORDS SUMMARY | 2024-09-29 03:39 | External Medical Summary ---
Author Name Unknown Address Unknown Organization [facility] [address] [place] [address] Laboratory Report Ordering Provider Test Date Status MONICA FERNANDES 08/01/2024 05:28:00 Final Observation Date Value Abnormality Reference (Units ) Status WBC, Total 08/01/2024 05:28:00 6.10 4.00-10.8 0 (K/uL) Final RBC 08/01/2024 05:28:00 3.14 3.85-5.15 (M/uL) Final Hemoglobin 08/01/2024 05:28:00 9.8 Below low normal 12 .0-15.3 (g/dL) Final HCT 08/01/2024 05:28:00 30.2 Below low normal 36. 0-45.2 (%) Final MCV 08/01/2024 05:28:00 96.2 81.5-97.5 (fL) Final MCH 08/01/2024 05:28:00 31.2 27.0-34.0 (pg) Final MCHC 08/01/2024 05:28:00 32.5 32.0-36.0 (g/dL) Final RDW 08/01/2024 05:28:00 14.1 11.5-15.5 (%) Final Platelets 08/01/2024 05:28:00 111 Below low normal 140 -400 (K/uL) Final MPV 08/01/2024 05:28:00 12.0 6.6-11.1 ( fL) Final Performing Location [facility] [address] [place] [address]
--- OUTSIDE RECORDS SUMMARY | 2024-09-29 03:39 | External Medical Summary ---
Author Name Unknown Address Unknown Organization [facility] [address] [place] [address] Laboratory Report Ordering Provider Test Date Status MONICA FERNANDES 08/08/2024 05:20:00 Final Observation Date Value Abnormality Reference (Units ) Status WBC, Total 08/08/2024 05:20:00 5.54 4.00-10.8 0 (K/uL) Final RBC 08/08/2024 05:20:00 3.14 3.85-5.15 (M/uL) Final Hemoglobin 08/08/2024 05:20:00 9.8 Below low normal 12 .0-15.3 (g/dL) Final HCT 08/08/2024 05:20:00 30.2 Below low normal 36. 0-45.2 (%) Final MCV 08/08/2024 05:20:00 96.2 81.5-97.5 (fL) Final MCH 08/08/2024 05:20:00 31.2 27.0-34.0 (pg) Final MCHC 08/08/2024 05:20:00 32.5 32.0-36.0 (g/dL) Final RDW 08/08/2024 05:20:00 13.9 11.5-15.5 (%) Final Platelets 08/08/2024 05:20:00 100 Below low normal 140 -400 (K/uL) Final MPV 08/08/2024 05:20:00 11.8 6.6-11.1 ( fL) Final Performing Location [facility] [place] [address] [place] [address]
--- OUTSIDE RECORDS SUMMARY | 2024-09-29 03:39 | External Medical Summary | Summary of Care ---
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 Active OneTouch Verio In Vitro Strip (Glucose Blood)Indications: Type 2 diabetes mellitus with hemoglobin A1c goal of less than 8.5% ([facility]) Use to test blood sugar at least once a day DX e11.9 100 Strip 3 12/03/19 22 Active OneTouch Delica Plus [id number] ns:Type 2 diabetes mellitus with hemoglobin A1c goal of less than 8.5% ([facility]) Use as directed . Use [...] morning and 1 Tablet before bedtime. Active rifAXIMin 550 MG Oral Tablet Take 1 Tablet by mouth in the morning and 1 Tablet before bedtime. 025 Discontin ued(Medic ation List Clean Up) Ventolin HFA 108 (90 Base) MCG/ACT Inhalation Aerosol Solution Inhale by mouth. Inhale 2 Puffs by mouth every 4 hours as needed for Pain, Chest, Cough or Shortness of Breath 025 Discontin ued(Medic ation List Clean Up) Probiotic 250 MG Oral Capsule Take 1 Capsule by mouth daily. 025 Discontin ued(Medic ation List Clean Up) Polyethylene Glycol 3350 17 GM/SCOOP Oral Powder (Miralax) 07/08/20 23 025 Discontin ued(Medic ation List Clean Up) Lactulose Encephalopathy 10 GM/15ML Oral Solution 01/21/20 24 025 Discontin ued(Medic ation List Clean Up) documented as of this encounter (statuses as of 08/05/2024) Active Problems Problem Noted Date Diagnosed Date [...] & Plan (10/16/2021 12:04 PM EDT): 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 Usually takes [...] 01/13/13 PSG -- RDI 5.3 [facility] - [place] Gastroesophageal reflux disease without esophagi tis 11/22/2010 Assessment & Plan (05/09/2022 7:26 AM EDT): Sx controlled with ompeprazole DYSLIPIDEMIA, GOAL LDL BELOW 100 06/26/2009 Overview (06/26/2009): Per Lipid Taxonomy. DM gastroparesis IBS (irritable bowel syndrome) documented as of this encounter (statuses as of 08/05/2024) Resolved Problems Problem Noted Date Diagnosed Date [...] colon 09/17/200901/2018 Overview (10/09/2009): sellile serrated adenoma, [facility], f/u in colonoscopy in 5 yrs [...] as of this encounter (statuses as of 08/05/2024) Immunizations Name Administration Dates Next Due COVID-19 Whole Virus, Quispe Vac, 2-Dose Series ([employer]) 09/03/2020,08/03/2020 COVID-19 mRNA, LNP-s, No Pre serve, [...] often do you attend chur ch or yazidism services? More than 4 times per year 06/01/2020 Do you belong to any clubs o r organizations such as methodist groups, unions, fraternal or athletic groups, or [...] Answer Date Recorded PHQ-2 Score 0 03/08/2019 [facility] of Occupat ional Health - Occupational Stress [...] Sign Reading Time Taken Comments Blood Pressure 122/67 08/05/2024 11:18 AM EST Pulse 62 08/05/2024 11:18 AM EST Temperature - - Respiratory Rate - - Oxygen Saturation - - Inhaled Oxygen Concentration - - Weight - - Height - - Body Mass Index - - documented in this encounter Functional Status * Does this person have serious difficulty walking or climbing stairs? Answer Date of Assessment Author Yes 06/01/2020 11:39 AM EST documented as of this encounter Progress Notes * Henri Beauchamp, DO - 08/05/2024 10:30 AM EST [facility] [place] Nursing Notes: Renetta Finn RN 08/05/24 2630 Signed Indu Carbone is a 69 year old year old female referred by Dr. Ramos to evaluate for possible NPDRw/ME. Patient's name preference, 'Indu'. Patient currently states "I have sugar and just use reading glasses and Dr. Caputo removed cataracts last year and difficult to see and read and he thought was b/c of sugars" Have you ever had any major surgery of serious injury of or around the eyes- yes (CE OU) Are you diabetic? Yes. Do you check your blood sugars daily? YES. Fasting BS this mornin mg/dl. Last Hemoglobin A1C: Lab Results Component Value Date/Time HGBA1C 6.8 (H) 07/24/2022 12:30 PM HGBA1C 8.6 (H) 01/21/2022 10:18 AM HGBA1C 8.3 (H) 05/24/2021 02:27 PM HGBA1C 7.9 (H) 06/20/2020 11:09 AM HGBA1C 9.5 (H) 01/19/2020 03:42 PM HGBA1C 9.1 (H) 09/08/2019 11:16 AM FAMILY HISTORY: Family History Problem Relation Name Age of Onset Breast Cancer Mother Lung Disorder Mother COPD, Still living 78 Diabetes Father at 87 Cervical Cancer Sister zeus Prostate cancer Uncle (Unspecified) Cervical Cancer Niece Gifty SOCIAL HISTORY: Social History Tobacco Use Smoking status: Never Smokeless tobacco: Never Vaping Use Vaping status: Never Used Substance Use Topics Alcohol use: No Drug use: No PMH: Past Medical History: Diagnosis Date Anxiety Benign neoplasm of colon 09/2009 sellile serrated adenoma, [facility], f/u in colonoscopy in 5 yrs [...] Unspecified urinary incontinence Unspecified vitamin D deficiency Patient Active Problem List Diagnosis DYSLIPIDEMIA, GOAL [...] obesity with BMI of 45.0-49.9, adult (HCC) skilled nursing (current) use of insulin (HCC) Pressure sore on buttocks Dentalgia History of major abdominal surgery Major depressive disorder, recurrent, unspecified (HCC) Thrombocytopenia (HCC) Type 2 diabetes mellitus with mild nonproliferative diabetic retinopathy without macular edema, bilateral (HCC) HTN, goal below 140/90 Atherosclerotic heart disease of [place] coronary artery without angina pectoris Nocturnal hypoxemia Frequent nosebleeds Esophageal spasm Chronic right-sided heart failure (HCC) History of epistaxis Mild episode of recurrent major depressive disorder (HCC) Thyroid nodule Portal hypertensive gastropathy (HCC) Constipation Hypertensive heart and kidney disease with chronic diastolic congestive heart failure and stage 3a chronic kidney disease (HCC) History obtained from: Patient Do you drive? no OCT and Fundus image(s) of both eyes acquired and filed/scanned into chart. Base Eye Exam Visual Acuity (Snellen - Linear) Right Left Dist sc 20/60 -2 20/60 -1 Dist ph sc NI NI Tonometry (Tonopen, 10:53 AM) Right Left Pressure 14 14 Pupils Pupils APD Right PERRL None Left PERRL None Visual Hopkins (Counting fingers) Right Left Full Full Extraocular Movement Right Left Full, Ortho Full, Ortho Neuro/Psych Oriented x3: Yes Mood/Affect: Normal Dilation Both eyes: 0.5% Proparacaine @ 10:53 AM Dilation #2 Both eyes: 1.0% Mydriacyl, 2.5% Phenylephrine @ 10:53 AM Dilation #3 Both eyes: 1.0% Mydriacyl, 2.5% Phenylephrine @ 10:55 AM Dilation Comments Patient cautioned that effects of dilation may last 2-7 hours dependant upon individual reaction. It was discussed that driving while dilated is not recommended. EXTERNAL: The ocular adnexae are unremarkable. SLE: Lids/Lashes: wnl OU Conjunctiva/Sclera: quiet OU Cornea: clear OU Anterior Chamber: deep and quiet OU Iris: normal OU; no NVI OU Lens: PCIOL OU Dilated fundus exam OD: vitreous: clear optic nerve: 0.2, no edema/pallor/NVD macula: rn acute care, erm vessels: wnl periphery: rn acute care, no RT/RD Dilated fundus exam OS: vitreous: clear optic nerve: 0.2, no edema/pallor/NVD macula: rn acute care, erm vessels: wnl periphery: rn acute care, no RT/RD OCT Interpretation: OD: erm, no irf/srf, no pvd OS: erm, srfluid, trace irf A/P: 1. Moderate Nonproliferative Diabetic Retinopathy OU -recommend HgbA1C <7, BP and lipid control. -monitor 2. Macular pucker OU -likely affecting VA w/ foveal srf OS -pt w/ commorbidities and not good candidate for PPV/MP -also happy w/ current vision and not interested in sx at this time -monitor 3. Pseudophakia OU -stable, Dr. Caputo does not drive Follow Up: Return in about 3 months (around 11/03/2024).; OCT OU; WF OU Henri Beauchamp DO CC: Mark Ramos DO CC: PCP: Oxana Willams MD documented in this encounter Nursing Notes * Renetta Finn RN - 08/05/2024 10:43 AM EST Indu Carbone is a 69 year old year old female referred by Dr. Ramos to evaluate for possible NPDRw/ME. Patient's name preference, 'Indu'. Patient currently states "I have sugar and just use reading glasses and Dr. Caputo removed cataracts last year and difficult to see and read and he thought was b/c of sugars" Have you ever had any major surgery of serious injury of or around the eyes- yes (CE OU) Are you diabetic? Yes. Do you check your blood sugars daily? YES. Fasting BS this mornin mg/dl. Last Hemoglobin A1C: Lab Results Component Value Date/Time HGBA1C 6.8 (H) 07/24/2022 12:30 PM HGBA1C 8.6 (H) 01/21/2022 10:18 AM HGBA1C 8.3 (H) 05/24/2021 02:27 PM HGBA1C 7.9 (H) 06/20/2020 11:09 AM HGBA1C 9.5 (H) 01/19/2020 03:42 PM HGBA1C 9.1 (H) 09/08/2019 11:16 AM FAMILY HISTORY: Family History Problem Relation Name Age of Onset Breast Cancer Mother Lung Disorder Mother COPD, Still living 78 Diabetes Father at 87 Cervical Cancer Sister zeus Prostate cancer Uncle (Unspecified) Cervical Cancer Niece Gifty SOCIAL HISTORY: Social History Tobacco Use Smoking status: Never Smokeless tobacco: Never Vaping Use Vaping status: Never Used Substance Use Topics Alcohol use: No Drug use: No PMH: Past Medical History: Diagnosis Date Anxiety Benign neoplasm of colon 09/2009 sellile serrated adenoma, [facility], f/u in colonoscopy in 5 yrs [...] Unspecified urinary incontinence Unspecified vitamin D deficiency Patient Active Problem List Diagnosis DYSLIPIDEMIA, GOAL [...] obesity with BMI of 45.0-49.9, adult (HCC) 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 (HCC) Pressure sore on buttocks Dentalgia History of major abdominal surgery Major depressive disorder, recurrent, unspecified (HCC) Thrombocytopenia (HCC) Type 2 diabetes mellitus with mild nonproliferative diabetic retinopathy without macular edema, bilateral (HCC) HTN, goal below 140/90 Atherosclerotic heart disease of [place] coronary artery without angina pectoris Nocturnal hypoxemia Frequent nosebleeds Esophageal spasm Chronic right-sided heart failure (HCC) History of epistaxis Mild episode of recurrent major depressive disorder (HCC) Thyroid nodule Portal hypertensive gastropathy (HCC) Constipation Hypertensive heart and kidney disease with chronic diastolic congestive heart failure and stage 3a chronic kidney disease (HCC) History obtained from: Patient Do you drive? no OCT and Fundus image(s) of both eyes acquired and filed/scanned into chart. documented in this encounter Plan of Treatment Upcoming Encounters Date Type Department Care Team (Late st Contact Info) Description 08/18/2024 3:00 PM EST Office Visit Cardiology [address] [place] [address] Adrianna Huffman PA-C [address] [place] [address] 08/30/2024 12:00 PM EST Office Visit Gastroenterology, [facility] [address] [place] [address] Sandhya Blair CRNP [address] [place] [address] 11/03/2024 11:00 AM EDT Office Visit Ophthalmology, [facility] [address] [place] [address] Henri Beauchamp DO [address] [place] [address] 12/22/2024 10:00 AM EDT Office Visit Sleep Disorders Ctr [facility] [address] [place] [phone] Corinne Carlin CRNP [address] [place] [address] Scheduled Procedures Name Priority Associated Diagnoses Date/Ti me COLONOSCOPY FLEXIBLE PROXIMA L DIAGNOSTIC Recall History of colonic polyps Health Maintenance Due Date Last Done Comments CKD PHOS USE SMARTSET 51948 1973 Cologuard 2000 Fecal Occult Blood Test [...] 04/18/2020, Additional history exists B-12 12/22/2024 12/23/2023, 11/2022, 01/21/2022, Additional history exists GFR 01/29/2025 08/01/2024, 12/2024, 07/18/2024, Additional history exists Pneumococcal Vaccine: 50+ Years (3 of 3 - PCV20 or PCV21) 05/23/2025 05/23/2020, 05/27/2006 Diabetic Eye Exam 06/30/2025 06/30/2024, , 06/30/2024, Additional history exists CKD HGB USE SMARTSET 89891 08/01/202508/01, 07/25/2024, 07/11/2024, Additional history exists Colonoscopy 07/10/2028 07/10/2023, 07/2018, [...] goiter Thrombocytopenia (HCC) Thrombocytopenia, unspecified Atherosclerosis of [place] coronary artery without angina pectoris, unspecified whether [place] or transplanted heart Chronic diastolic heart failure [...] BMI of 45.0-49.9, adult (HCC) Morbid obesity 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
--- OUTSIDE RECORDS SUMMARY | 2024-09-29 03:39 | External Medical Summary | Summary of Care ---
Author Name Unknown Organization [facility] Address [address] [facility] [place] [address] Phone [phone] Care Team Providers Care Paperhanger Apprentice Name Role Phone Oxana Willams MD Primary Care Provider [phone] Encounter Details Date Type Department Care Team (Late st Contact Info) Description 08/01/2024 Orders Only Lab Mobile Phlebotomy [facility] [address] [place] [address] Oxana Willams MD [address] [place] [address] [place] [address] Hypokalemia* Allergies Active Allergy Reactions Criticality Noted Date [...] as of this encounter (statuses as of 08/01/2024) Medications DIURETIC TITRATION PLANIndications:Aquiles ambriz diastolic congestive heart failure (HCC) If no improvement on day 3, contact heart failure managing provider or [facility] at home case folder 1 Each 01/19/20 19 Active Medical Compression [...] 3 12/03/19 22 Active OneTouch Delica Plus [id number] ns:Type 2 diabetes mellitus with hemoglobin A1c [...] as of this encounter (statuses as of 08/01/2024) Active Problems Problem Noted Date Diagnosed Date [...] Assessment & Plan (10/16/2021 12:04 PM EDT): [facility] Call: Not taking diuretics 2/2 combination [...] above regimen 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 Is able to bulk picker new medication today. Usually takes metolazone [...] 01/13/13 PSG -- RDI 5.3 AHP - [place] Gastroesophageal reflux disease without esophagi tis 11/22/2010 Assessment & Plan (05/09/2022 7:26 AM EDT): Sx controlled with ompeprazole DYSLIPIDEMIA, GOAL LDL BELOW 100 06/26/2009 Overview (06/26/2009): Per Lipid Taxonomy. DM gastroparesis IBS (irritable bowel syndrome) documented as of this encounter (statuses as of 08/01/2024) Resolved Problems Problem Noted Date Diagnosed Date [...] as of this encounter (statuses as of 08/01/2024) Immunizations Name Administration Dates Next Due COVID-19 Whole Virus, Quispe Vac, 2-Dose Series (Playfire) 09/03/2020,08/03/2020 COVID-19 mRNA, LNP-s, No Pre serve, 2-Dose Series (Naow) 09/02/2020,08/12/2020 HEP A - Hepatitis A (Adult [...] often do you attend chur ch or latter day services? More than 4 times per year 06/01/2020 Do you belong to any clubs o r organizations such as faith groups, unions, fraternal or athletic groups, or [...] Score 0 03/08/2019 [facility] [place] of Occupat ional Health - Occupational Stress [...] as of this encounter Progress Notes * Thi Law TECH - 08/01/2024 2:38 AM EST CBC documented in this encounter Plan of Treatment Upcoming Encounters Date Type Department Care Team (Late st Contact Info) Description 08/01/2024 5:00 AM EST Laboratory Lab Mobile Phlebotomy [facility] [address] [place] [address] [facility], [address] [place] [address] Arrived 08/05/2024 10:30 AM EST Office Visit Ophthalmology, [facility] [address] [place] [address] Henri Beauchamp DO [address] [place] [address] 08/18/2024 3:00 PM EST Office Visit Cardiology [address] [place] [address] Adrianna Huffman PA-C [address] [place] [address] 08/30/2024 12:00 PM EST Office Visit Gastroenterology, [facility] [address] [place] [address] Sandhya Blair CRNP [address] [place] [address] 12/22/2024 10:00 AM EDT Office Visit Sleep Disorders Ctr [facility] [address] [place] [phone] Corinne Carlin CRNP [address] [place] [address] Scheduled Orders Name Type Priority Associated Diagnoses Orde r Schedule CBC Lab Routine Hypokalemia Expected: 08/01/2024, Expires: 08/01/2025 COMPREHENSIVE METABOLIC PANEL Lab Routine Hypokalemia Expected: 08/01/2024, Expires: 08/01/2025 AMMONIA Lab Routine Hypokalemia Expected: 08/01/2024, Expires: 08/01/2025 Scheduled Procedures Name Priority Associated Diagnoses Date/Ti me COLONOSCOPY FLEXIBLE PROXIMA L DIAGNOSTIC Recall History of colonic polyps Health Maintenance Due Date Last Done Comments CKD PHOS USE SMARTSET 41226 1973 Cologuard 2000 Fecal Occult Blood Test [...] 01/21/2022, Additional history exists GFR 01/22/2025 07/25/2024, 12, 07/11/2024, Additional history exists Pneumococcal Vaccine: 50+ Years (3 of 3 - PCV20 or PCV21) 05/23/2025 05/23/2020, 05/27/2006 Diabetic Eye Exam 06/30/2025 06/30/2024, , 06/30/2024, Additional history exists CKD HGB USE SMARTSET 31035 07/25/202507/25, 07/11/2024, 07/08/2024, Additional history exists Colonoscopy [...] goiter Thrombocytopenia (HCC) Thrombocytopenia, unspecified Atherosclerosis of quechan coronary artery without angina pectoris, unspecified whether quechan or transplanted heart Chronic diastolic heart failure [...] BMI of 45.0-49.9, adult (HCC) Morbid obesity Hypokalemia- Primary Hypopotassemia documented in this encounter Care Teams Paperhanger Apprentice Relationship Specialty Start Date End Date Oxana Willams MD [address] [place] [address] [place] [address] PCP - General Internal Medicine 08/17/23 documented as of this encounter
--- OUTSIDE RECORDS SUMMARY | 2024-09-29 03:40 | External Medical Summary | Summary of Care ---
Author Name Unknown Organization [facility] Address [address] [facility] [place] [address] Phone [phone] Care Team Providers Care Mold Dumper Name Role Phone Oxana Willams MD Primary Care Provider [phone] [phone] Encounter Details Date Type Department Care Team (Late st Contact Info) Description 07/11/2024 Orders Only Lab Mobile Phlebotomy [facility] [address] [place] [address] Oxana Willams MD [address] [place] [address] [place] [address] SMALL (nonalcoholic steatohepatitis)*; Chronic kidney disease (CKD) Allergies Active Allergy Reactions Criticality Noted Date [...] as of this encounter (statuses as of 07/11/2024) Medications DIURETIC TITRATION PLANIndications:Aquiles ambriz diastolic congestive heart failure (HCC) If no improvement on day 3, contact heart failure managing provider or [facility] at home case management rn 1 Each 01/19/20 19 Active Medical Compression [...] 3 12/03/19 22 Active OneTouch Delica Plus [id number] ns:Type 2 diabetes mellitus with hemoglobin A1c [...] as of this encounter (statuses as of 07/11/2024) Active Problems Problem Noted Date Diagnosed Date [...] & Plan (10/16/2021 12:04 PM EDT): [facility] Call: Not taking diuretics 2/2 combination [...] obesity with BMI of 45.0-49.9, adult 01/2018 [facility] (current) use of insulin 03/26/2018 Pressure sore [...] 01/13/13 PSG -- RDI 5.3 A[facility] - [place] Gastroesophageal reflux disease without esophagi tis 11/22/2010 Assessment & Plan (05/09/2022 7:26 AM EDT): Sx controlled with ompeprazole DYSLIPIDEMIA, GOAL LDL BELOW 100 06/26/2009 Overview (06/26/2009): Per Lipid Taxonomy. DM gastroparesis IBS (irritable bowel syndrome) documented as of this encounter (statuses as of 07/11/2024) Resolved Problems Problem Noted Date Diagnosed Date [...] as of this encounter (statuses as of 07/11/2024) Immunizations Name Administration Dates Next Due COVID-19 Whole Virus, Quispe Vac, 2-Dose Series (Bitcast) 09/03/2020,08/03/2020 COVID-19 mRNA, LNP-s, No Pre serve, 2-Dose Series (Shopnation) 09/02/2020,08/12/2020 HEP A - Hepatitis A (Adult [...] often do you attend chur ch or cheondoism services? More than 4 times per year [...] Answer Date Recorded PHQ-2 Score 0 03/08/2019 [facility] [place] of Occupat ional Health - Occupational Stress [...] Care Team (Late st Contact Info) Description 07/11/2024 5:10 AM EST Laboratory Lab Mobile Phlebotomy [facility] [address] [facility] [place] [address] [place] [address] Arrived 08/05/2024 10:30 AM EST Office Visit Ophthalmology, [facility] [address] [place] [address] Henri Beauchamp DO [address] [place] [address] 08/18/2024 3:00 PM EST Office Visit Cardiology [address] [place] [address] Adrianna Huffman PA-C [address] [place] [address] 08/30/2024 12:00 PM EST Office Visit Gastroenterology, [facility] [address] [place] [address] Sandhya Blair CRNP [address] [place] [address] 12/22/2024 10:00 AM EDT Office Visit Sleep Disorders Ctr [facility] [address] [place] [phone] Corinne Carlin CRNP 132 [place] [address] Scheduled Orders Name Type Priority Associated Diagnoses Orde r Schedule CBC Lab Routine SMALL (nonalcoholic steatohepatitis) Chronic kidney disease (CKD) Expected: 07/11/2024, Expires: 07/11/2025 COMPREHENSIVE METABOLIC PANEL Lab Routine SMALL (nonalcoholic steatohepatitis) Chronic kidney disease (CKD) Expected: 07/11/2024, Expires: 07/11/2025 AMMONIA Lab Routine SMALL (nonalcoholic steatohepatitis) Chronic kidney disease (CKD) Expected: 07/11/2024, Expires: 07/11/2025 Scheduled Procedures Name Priority Associated Diagnoses Date/Ti me COLONOSCOPY FLEXIBLE PROXIMA L DIAGNOSTIC Recall History of colonic polyps Health Maintenance Due Date Last Done Comments CKD PHOS USE SMARTSET 52988 1973 Cologuard 2000 Fecal Occult Blood Test [...] 12/0 11/2022, 01/21/2022, Additional history exists GFR 01/06/2025 07/08/2024, 06/19, 06/27/2024, Additional history exists Pneumococcal Vaccine: 65+ Years (3 of 3 - PCV20 or PCV21) 05/23/2025 05/23/2020, 05/27/2006 Diabetic Eye Exam 06/30/2025 06/30/2024, , 06/30/2024, Additional history exists CKD HGB USE SMARTSET 76548 07/08/202507/08, 07/04/2024, 06/27/2024, Additional history exists Colonoscopy 07/10/2028 07/10/2023, 04/0 [...] kidney disease (CKD) Chronic kidney disease, unspecified documented in this encounter Care Teams Mold Dumper Relationship Specialty Start Date End Date Oxana Willams MD [address] [place] [address] [place] [address] PCP - General Internal Medicine 08/17/23 documented as of this encounter
--- OUTSIDE RECORDS SUMMARY | 2024-09-29 03:40 | External Medical Summary ---
Author Name Unknown Address Unknown Organization [id number]:LABORATORY [facility] - [address] [facility] [place] [address] Laboratory Report Ordering Provider Test Date Status MONICA FERNANDES 07/25/2024 05:20:00 Final Observation Date Value Abnormality Reference (Units ) Status Ammonia 07/25/2024 05:20:00 120 Above upper panic limits 11-35 (umol/L) Final Performing Location [facility] - [address] [place] [address]
--- OUTSIDE RECORDS SUMMARY | 2024-09-29 03:40 | External Medical Summary ---
Author Name Unknown Address Unknown Organization [id number]:LABORATORY [facility] [address] - [address] [place] [address] Laboratory Report Ordering Provider Test Date Status MONICA FERNANDES 07/11/2024 05:17:00 Final Observation Date Value Abnormality Reference (Units ) Status WBC, Total 07/11/2024 05:17:00 5.50 4.00-10.8 0 (K/uL) Final RBC 07/11/2024 05:17:00 2.93 3.85-5.15 (M/uL) Final Hemoglobin 07/11/2024 05:17:00 9.0 Below low normal 12 .0-15.3 (g/dL) Final HCT 07/11/2024 05:17:00 28.2 Below low normal 36. 0-45.2 (%) Final MCV 07/11/2024 05:17:00 96.2 81.5-97.5 (fL) Final MCH 07/11/2024 05:17:00 30.7 27.0-34.0 (pg) Final MCHC 07/11/2024 05:17:00 31.9 32.0-36.0 (g/dL) Final RDW 07/11/2024 05:17:00 14.9 11.5-15.5 (%) Final Platelets 07/11/2024 05:17:00 113 Below low normal 140 -400 (K/uL) Final MPV 07/11/2024 05:17:00 11.0 6.6-11.1 ( fL) Final Performing Location LABORATORY [facility] 57-[address] 0 - [address] [place] [address]
--- OUTSIDE RECORDS SUMMARY | 2024-09-29 03:40 | External Medical Summary ---
Author Name Unknown Address Unknown Organization [id number]:LABORATORY [facility] [address] - [address] [place] [address] Laboratory Report Ordering Provider Test Date Status MONICA FERNANDES 07/25/2024 05:20:00 Final Observation Date Value Abnormality Reference (Units ) Status WBC, Total 07/25/2024 05:20:00 5.91 4.00-10.8 0 (K/uL) Final RBC 07/25/2024 05:20:00 3.05 3.85-5.15 (M/uL) Final Hemoglobin 07/25/2024 05:20:00 9.4 Below low normal 12 .0-15.3 (g/dL) Final HCT 07/25/2024 05:20:00 29.0 Below low normal 36. 0-45.2 (%) Final MCV 07/25/2024 05:20:00 95.1 81.5-97.5 (fL) Final MCH 07/25/2024 05:20:00 30.8 27.0-34.0 (pg) Final MCHC 07/25/2024 05:20:00 32.4 32.0-36.0 (g/dL) Final RDW 07/25/2024 05:20:00 14.4 11.5-15.5 (%) Final Platelets 07/25/2024 05:20:00 116 Below low normal 140 -400 (K/uL) Final MPV 07/25/2024 05:20:00 11.5 6.6-11.1 ( fL) Final Performing Location LABORATORY [facility] 57-[address] 0 - [address] [place] [address]
--- OUTSIDE RECORDS SUMMARY | 2024-09-29 03:40 | External Medical Summary ---
Author Name Unknown Address Unknown Organization K0G:LABORATORY [place] [address] - [address] [place] [address] Laboratory Report Ordering Provider Test Date Status MONICA FERNANDES 07/11/2024 05:17:00 Final Observation Date Value Abnormality Reference (Units ) Status BUN 07/11/2024 05:17:00 33 Above high normal 6-20 (mg/dL) Final Creatinine 07/11/2024 05:17:00 2.0 Above high normal 0.5-1.0 (mg/dL) Final Glomerular filtration rate/1.73 sq M.predicted [Volume Rate/Area] in Serum, Plasma or Blood by Creatinine-based formula (CKD-EPI) 07/11/2024 05:17:00 27 Below low normal >=60 (mL/min) Final eGFR is calculated based on the CKD-EPI 2020 equation. Sodium 07/11/2024 05:17:00 142 135-146 (m mol/L) Final Potassium 07/11/2024 05:17:00 4.2 3.5-5.1 (m mol/L) Final Cl 07/11/2024 05:17:00 106 98-107 (mm ol/L) Final CO2 07/11/2024 05:17:00 28 22-32 (mmo l/L) Final Anion gap 07/11/2024 05:17:00 8 7-15 (mmol /L) Final Glucose 07/11/2024 05:17:00 244 Above high normal 70 -120 (mg/dL) Final Albumin 07/11/2024 05:17:00 2.3 Below low normal 3.8 -5.0 (g/dL) Final AST (Aspartate aminotransferase) 07/11/2024 05:17:00 44 Above high normal 10-35 (U/L) Final Alk Phos 07/11/2024 05:17:00 127 35-130 (U/ L) Final Bilirubin, Total 07/11/2024 05:17:00 0.7 <=1 .2 (mg/dL) Final Calcium 07/11/2024 05:17:00 8.4 8.4-10.2 ( mg/dL) Final Protein 07/11/2024 05:17:00 5.5 Below low normal 6.0 -8.3 (g/dL) Final ALT (Alanine aminotransferase) 07/11/2024 05:17:00 28 10-35 (U/L) Foster mayo Performing Location LABORATORY [place] 57[address] 0 - [address] [facility] [address]
--- OUTSIDE RECORDS SUMMARY | 2024-09-29 03:40 | External Medical Summary ---
Author Name Unknown Address Unknown Organization K01:LABORATORY C - [address] [place] [address] Laboratory Report Ordering Provider Test Date Status MONICA FERNANDES 07/18/2024 05:08:00 Final Observation Date Value Abnormality Reference (Units ) Status Ammonia 07/18/2024 05:08:00 92 Above upper panic limits 11-35 (umol/L) Final Performing Location [facility] - [address] [place] [address]
--- OUTSIDE RECORDS SUMMARY | 2024-09-29 03:40 | External Medical Summary ---
Author Name Unknown Address Unknown Organization K0G:LABORATORY [place] [address] - [address] [place] [address] Laboratory Report Ordering Provider Test Date Status MONICA FERNANDES 07/18/2024 05:08:00 Final Observation Date Value Abnormality Reference (Units ) Status BUN 07/18/2024 05:08:00 37 Above high normal 6-20 (mg/dL) Final Creatinine 07/18/2024 05:08:00 2.3 Above high normal 0.5-1.0 (mg/dL) Final Glomerular filtration rate/1.73 sq M.predicted [Volume Rate/Area] in Serum, Plasma or Blood by Creatinine-based formula (CKD-EPI) 07/18/2024 05:08:00 23 Below low normal >=60 (mL/min) Final eGFR is calculated based on the CKD-EPI 2020 equation. Sodium 07/18/2024 05:08:00 141 135-146 (m mol/L) Final Potassium 07/18/2024 05:08:00 4.8 3.5-5.1 (m mol/L) Final Cl 07/18/2024 05:08:00 108 Above high normal 98 -107 (mmol/L) Final CO2 07/18/2024 05:08:00 27 22-32 (mmo l/L) Final Anion gap 07/18/2024 05:08:00 6 Below low normal 7-1 5 (mmol/L) Final Glucose 07/18/2024 05:08:00 160 Above high normal 70 -120 (mg/dL) Final Albumin 07/18/2024 05:08:00 2.5 Below low normal 3.8 -5.0 (g/dL) Final AST (Aspartate aminotransferase) 07/18/2024 05:08:00 50 Above high normal 10-35 (U/L) Final Alk Phos 07/18/2024 05:08:00 119 35-130 (U/ L) Final Bilirubin, Total 07/18/2024 05:08:00 0.9 <=1 .2 (mg/dL) Final Calcium 07/18/2024 05:08:00 9.0 8.4-10.2 ( mg/dL) Final Protein 07/18/2024 05:08:00 5.9 Below low normal 6.0 -8.3 (g/dL) Final ALT (Alanine aminotransferase) 07/18/2024 05:08:00 32 10-35 (U/L) Foster mayo Performing Location LABORATORY [place] [address] 0 - [address] [facility] [address]
--- OUTSIDE RECORDS SUMMARY | 2024-09-29 03:40 | External Medical Summary ---
Author Name Unknown Address Unknown Organization K01:LABORATORY C - [address] [place] [address] Laboratory Report Ordering Provider Test Date Status MONICA FERNANDES 07/11/2024 05:17:00 Final Observation Date Value Abnormality Reference (Units ) Status Ammonia 07/11/2024 05:17:00 129 Above upper panic limits 11-35 (umol/L) Final Performing Location LAB[facility] - [address] [place] [address]
--- OUTSIDE RECORDS SUMMARY | 2024-09-29 03:40 | External Medical Summary | Summary of Care ---
Author Name Unknown Organization [facility] Address [address] [place] [address] Phone [phone] Care Team Providers Care Fixing Machine Operator Name Role Phone Oxana Willams MD Primary Care Provider [phone] Encounter Details Date Type Department Care Team (Late st Contact Info) Description 07/18/2024 Orders Only Lab Mobile Phlebotomy [facility] [address] [place] [address] Oxana Willams MD [address] [place] [address] [place] [address] SMALL (nonalcoholic steatohepatitis)* Allergies [...] as of this encounter (statuses as of 07/18/2024) Medications DIURETIC TITRATION PLANIndications:Aquiles ambriz diastolic congestive heart failure (HCC) If no improvement on day 3, contact heart failure managing provider or [facility] at home case folder 1 Each 01/19/20 [...] 3 12/03/19 22 Active OneTouch Delica Plus [id number] ns:Type 2 diabetes mellitus with hemoglobin A1c [...] as of this encounter (statuses as of 07/18/2024) Active Problems Problem Noted Date Diagnosed Date [...] above regimen Atherosclerotic heart diseas e of hoh coronary artery without angina pectoris 09/08/2019 Assessment [...] with BMI of 45.0-49.9, adult 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 Is able to bead picker new medication today. Usually takes metolazone [...] 01/13/13 PSG -- RDI 5.3 [facility] - [place] Gastroesophageal reflux disease without esophagi tis 11/22/2010 Assessment & Plan (05/09/2022 7:26 AM EDT): Sx controlled with ompeprazole DYSLIPIDEMIA, GOAL LDL BELOW 100 06/26/2009 Overview (06/26/2009): Per Lipid Taxonomy. DM gastroparesis IBS (irritable bowel syndrome) documented as of this encounter (statuses as of 07/18/2024) Resolved Problems Problem Noted Date Diagnosed Date [...] as of this encounter (statuses as of 07/18/2024) Immunizations Name Administration Dates Next Due COVID-19 Whole Virus, Quispe Vac, 2-Dose Series ([employer]) 09/03/2020,08/03/2020 COVID-19 mRNA, LNP-s, No Pre serve, 2-Dose Series (MIOX) 09/02/2020,08/12/2020 HEP A - Hepatitis A (Adult [...] often do you attend chur ch or mu-ism services? More than 4 times per year [...] Answer Date Recorded PHQ-2 Score 0 03/08/2019 [facility] of Occupat ional [facility] - Occupational Stress Questionnaire Answer Date Recorded [...] Care Team (Late st Contact Info) Description 07/18/2024 5:00 AM EST Laboratory Lab Mobile Phlebotomy [facility] [address] [place] [address] [facility], [facility] Mobile [facility] [address] [facility] [place] [address] Arrived 08/05/2024 10:30 AM EST Office Visit Ophthalmology, [facility] [address] [place] [address] Henri Beauchamp DO [address] [place] [address] 08/18/2024 3:00 PM EST Office Visit Cardiology [address] [place] [address] Adrianna Huffman, [place] [address] [place] [address] 08/30/2024 12:00 PM EST Office Visit Gastroenterology, [facility] [address] [place] [address] Sandhya Blair CRNP [address] [place] [address] 12/22/2024 10:00 AM EDT Office Visit Sleep Disorders Ctr [facility] [address] [place] [phone] Corinne Carlin CRNP [address] [place] [address] Scheduled Orders Name Type Priority Associated Diagnoses Orde r Schedule COMPREHENSIVE METABOLIC PANEL Lab Routine SMALL (nonalcoholic steatohepatitis) Expected: 07/18/2024, Expires: 07/18/2025 AMMONIA Lab Routine SMALL (nonalcoholic steatohepatitis) Expected: 07/18/2024, Expires: 07/18/2025 Scheduled Procedures Name Priority Associated Diagnoses Date/Ti me COLONOSCOPY FLEXIBLE PROXIMA L DIAGNOSTIC Recall History of colonic polyps Health Maintenance Due Date Last Done Comments CKD PHOS USE SMARTSET 96040 1973 Cologuard 2000 Fecal Occult Blood Test [...] 12/0 11/2022, 01/21/2022, Additional history exists GFR 01/09/2025 07/11/2024, 12, 07/04/2024, Additional history exists Pneumococcal Vaccine: 50+ Years (3 of 3 - PCV20 or PCV21) 05/23/2025 05/23/2020, 05/27/2006 Diabetic Eye Exam 06/30/2025 06/30/2024, , 06/30/2024, Additional history exists CKD HGB USE SMARTSET 40528 07/11/202507/11, 07/08/2024, 07/04/2024, Additional history exists Colonoscopy [...] goiter Thrombocytopenia (HCC) Thrombocytopenia, unspecified Atherosclerosis of hoh coronary artery without angina pectoris, unspecified whether hoh or transplanted heart Chronic diastolic heart failure [...] disease documented in this encounter Care Teams Fixing Machine Operator Relationship Specialty Start Date End Date Oxana Willams MD [address] [place] [address] [place] [address] PCP - General Internal Medicine 08/17/23 documented as of this encounter
--- OUTSIDE RECORDS SUMMARY | 2024-09-29 03:41 | External Medical Summary ---
Author Name Unknown Address Unknown Organization K01:LABORATORY [place] [address] [address] [facility] [address] Laboratory Report Ordering Provider Test Date Status MONICA FERNANDES 07/04/2024 05:23:00 Final Observation Date Value Abnormality Reference (Units ) Status WBC, Total 07/04/2024 05:23:00 5.55 4.00-10.80 (K/uL) Final RBC 07/04/2024 05:23:00 2.80 3.85-5.15 (M/uL) Final Hemoglobin 07/04/2024 05:23:00 8.8 Below low normal 12.0-15.3 (g/dL) Final HCT 07/04/2024 05:23:00 28.2 Below low normal 36.0-45.2 (%) Final MCV 07/04/2024 05:23:00 100.7 81.5-97.5 (fL) Final MCH 07/04/2024 05:23:00 31.4 27.0-34.0 (pg) Final MCHC 07/04/2024 05:23:00 31.2 32.0-36.0 (g/dL) Final RDW 07/04/2024 05:23:00 15.6 11.5-15.5 (%) Final Platelets 07/04/2024 05:23:00 95 Below low normal 140-400 (K/uL) Final MPV 07/04/2024 05:23:00 12.6 6.6-11.1 (fL) Final Nucleated erythrocytes/100 leukocytes [Ratio] in Blood by Automated count 07/04/2024 05:23:00 0 <=0 (/100 WBCs) Final Performing Location LABORATORY [facility] - [address] [place] [address]
--- OUTSIDE RECORDS SUMMARY | 2024-09-29 03:41 | External Medical Summary ---
Author Name Unknown Address Unknown Organization [facility] - [address] [place] [address] Laboratory Report Ordering Provider Test Date Status MONICA FERNANDES 07/08/2024 05:27:00 Final Observation Date Value Abnormality Reference (Units ) Status WBC, Total 07/08/2024 05:27:00 5.60 4.00-10.8 0 (K/uL) Final RBC 07/08/2024 05:27:00 2.78 3.85-5.15 (M/uL) Final Hemoglobin 07/08/2024 05:27:00 8.6 Below low normal 12 .0-15.3 (g/dL) Final HCT 07/08/2024 05:27:00 26.8 Below low normal 36. 0-45.2 (%) Final MCV 07/08/2024 05:27:00 96.4 81.5-97.5 (fL) Final MCH 07/08/2024 05:27:00 30.9 27.0-34.0 (pg) Final MCHC 07/08/2024 05:27:00 32.1 32.0-36.0 (g/dL) Final RDW 07/08/2024 05:27:00 15.2 11.5-15.5 (%) Final Platelets 07/08/2024 05:27:00 97 Below low normal 140 -400 (K/uL) Final MPV 07/08/2024 05:27:00 11.5 6.6-11.1 ( fL) Final Performing Location [facility] [address] - [address] [place] [address]
--- OUTSIDE RECORDS SUMMARY | 2024-09-29 03:41 | External Medical Summary ---
Author Name Unknown Address Unknown Organization K01:LABORATORY C - [address] [place] [address] Laboratory Report Ordering Provider Test Date Status DOMMONICA 07/04/2024 05:23:00 Final Observation Date Value Abnormality Reference (Units ) Status Ammonia 07/04/2024 05:23:00 148 Above upper panic limits 11-35 (umol/L) Final Performing Location [facility] - [address] [place] [id number]
--- OUTSIDE RECORDS SUMMARY | 2024-09-29 03:41 | External Medical Summary | Summary of Care ---
Author Name Unknown Organization [facility] Address [address] [facility] [place] [address] Phone [phone] Care Team Providers Care Harvesting Contractor Name Role Phone Oxana Willams MD Primary Care Provider [phone] [phone] Encounter Details Date Type Department Care Team (Late st Contact Info) Description 07/08/2024 Orders Only Lab Mobile Phlebotomy [facility] [address] [place] [address] Oxana Willams MD [address] [place] [address] [place] [address] Rectal bleeding*; SMALL (nonalcoholic steatohepatitis) Allergies Active Allergy Reactions [...] as of this encounter (statuses as of 07/08/2024) Medications DIURETIC TITRATION PLANIndications:Aquiles ambriz diastolic congestive heart failure (HCC) If no improvement on day 3, contact heart failure managing provider or [facility] at home case management director 1 Each 01/19/20 19 Active Medical Compression [...] 3 12/03/19 22 Active OneTouch Delica Plus [id number] ns:Type 2 diabetes mellitus with hemoglobin A1c goal of less than 8.5% ([facility]) Use as directed . Use [...] as of this encounter (statuses as of 07/08/2024) Active Problems Problem Noted Date Diagnosed Date [...] Assessment & Plan (10/16/2021 12:04 PM EDT): [facility] Call: Not taking diuretics 2/2 [...] above regimen Atherosclerotic heart diseas e of [place] coronary artery without angina pectoris 09/08/2019 [...] obesity with BMI of 45.0-49.9, adult 01/2018 custodial (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 Is able to draft roller picker new medication today. Usually takes metolazone [...] 01/13/13 PSG -- RDI 5.3 [facility] - [place] Gastroesophageal reflux disease without esophagi tis 11/22/2010 Assessment & Plan (05/09/2022 7:26 AM EDT): Sx controlled with ompeprazole DYSLIPIDEMIA, GOAL LDL BELOW 100 06/26/2009 Overview (06/26/2009): Per Lipid Taxonomy. DM gastroparesis IBS (irritable bowel syndrome) documented as of this encounter (statuses as of 07/08/2024) Resolved Problems Problem Noted Date Diagnosed Date [...] as of this encounter (statuses as of 07/08/2024) Immunizations Name Administration Dates Next Due COVID-19 Whole Virus, Quispe Vac, 2-Dose Series ([employer]) 09/03/2020,08/03/2020 COVID-19 mRNA, LNP-s, No Pre serve, 2-Dose Series ([employer]) 09/02/2020,08/12/2020 HEP A - Hepatitis A (Adult [...] any clubs o r organizations such as christianity groups, unions, fraternal or athletic groups, or [...] Answer Date Recorded PHQ-2 Score 0 03/08/2019 [facility] [place] of Occupat ional Health - Occupational Stress [...] place to sleep or slept in a assisted (including now)? No 06/01/2020 Comments No Sex [...] Care Team (Late st Contact Info) Description 07/08/2024 5:00 AM EST Laboratory Lab Mobile Phlebotomy [facility] [address] [facility] [place] [address] [facility], [facility] Mobile [address] [place] [address] Arrived 08/05/2024 10:30 AM EST Office Visit Ophthalmology, [facility] [address] [place] [address] Henri Beauchamp DO [address] [place] [address] 08/18/2024 3:00 PM EST Office Visit Cardiology [address] [place] [address] Adrianna Huffman PA-C [address] [place] [address] 08/30/2024 12:00 PM EST Office Visit Gastroenterology, [facility] [address] [place] [address] Sandhya Blair CRNP [address] [place] [address] 12/22/2024 10:00 AM EDT Office Visit Sleep Disorders Ctr [facility] [address] [place] [address] Corinne Carlin CRNP [address] [place] [address] Scheduled Orders Name Type Priority Associated Diagnoses Orde r Schedule CBC Lab Routine Rectal bleeding SMALL (nonalcoholic steatohepatitis) Expected: 07/08/2024, Expires: 07/08/2025 BASIC METABOLIC PANEL Lab Routine Rectal bleeding SMALL (nonalcoholic steatohepatitis) Expected: 07/08/2024, Expires: 07/08/2025 Scheduled Procedures Name Priority Associated Diagnoses Date/Ti me COLONOSCOPY FLEXIBLE PROXIMA L DIAGNOSTIC Recall History of colonic polyps Health Maintenance Due Date Last Done Comments CKD PHOS USE SMARTSET 52166 1973 Cologuard 2000 Fecal Occult Blood Test 2000 Sigmoidoscopy 2000 Depression Monitoring 03/08/2020 03/08/2019 Diabetic Foot Exam 01/18/2021 01/19/2020, 0 03/08/2019, 02/18/2018, Additional history exists DTap/Tdap Vaccines (3 - Td or Tdap) 04/14/2021 04/14/2011, 07/16/2007 Pneumococcal Vaccine: 65+ Years (3 of 3 - PPSV23 or PCV20) 05/23/2021 05/23/2020, 05/27/2006 Zoster Vaccines (2 of 2) 02/05/2022 12/11/2021 Mammogram 02/26/2022 02/26/2021, 01/18, 02/12/2018, Additional history exists Albumin/Creatinine Ratio 01/21/2023 022, 02/18/2018, 02/05/2017, Additional history exists HbA1c 01/21/2023 07/24/2022, 0711/2021, 05/24/2021, Additional history exists COVID-19 Vaccine ( season) 2024 09/03/2020, 09/02/2020, 08/12/2020, Additional history exists Influenza Vaccine (FLU shot) (#1) 2024 05/06/2023, 05/24/2021, 04/18/2020, Additional history exists B-12 12/22/2024 12/23/2023, 12/0 11/2022, 01/21/2022, Additional history exists GFR 01/02/2025 07/04/2024, 120 03/2024, 06/20/2024, Additional history exists Diabetic Eye Exam 06/30/2025 06/30/2024, , 06/30/2024, Additional history exists CKD HGB USE SMARTSET 04541 07/04/202507/04, 06/27/2024, 06/20/2024, Additional history exists Colonoscopy 07/10/2028 07/10/2023, 04/0 [...] goiter Thrombocytopenia (HCC) Thrombocytopenia, unspecified Atherosclerosis of [place] coronary artery without angina pectoris, unspecified whether [place] or transplanted heart Chronic diastolic heart failure [...] BMI of 45.0-49.9, adult (HCC) Morbid obesity Rectal bleeding- Primary Hemorrhage of rectum and anus SMALL (nonalcoholic steatohepatitis) Other chronic nonalcoholic liver disease documented in this encounter Care Teams Harvesting Contractor Relationship Specialty Start Date End Date Oxana Willams MD [address] [place] [address] [place] [address] PCP - General Internal Medicine 08/17/23 documented as of this encounter
--- OUTSIDE RECORDS SUMMARY | 2024-09-29 03:41 | External Medical Summary | Summary of Care ---
Author Name Unknown Organization [facility] Address [address] [facility] [place] [address] Phone [phone] Care Team Providers Care Film Librarian Name Role Phone Oxana Willams MD Primary Care Provider [phone] Encounter Details Date Type Department Care Team (Late st Contact Info) Description 07/04/2024 Orders Only Lab Mobile Phlebotomy [facility] [address] [place] [address] Oxana Willams MD [address] [place] [address] [place] [address] Chronic kidney disease (CKD)*; SMALL (nonalcoholic steatohepatitis) Allergies Active Allergy Reactions [...] as of this encounter (statuses as of 07/04/2024) Medications DIURETIC TITRATION PLANIndications:Aquiles ambriz diastolic congestive heart failure (HCC) If no improvement on day 3, contact heart failure managing provider or [facility] at home case hardener 1 Each 01/19/20 19 Active Medical Compression [...] 3 12/03/19 22 Active OneTouch Delica Plus [id number] ns:Type 2 diabetes mellitus with hemoglobin A1c [...] as of this encounter (statuses as of 07/04/2024) Active Problems Problem Noted Date Diagnosed Date [...] Assessment & Plan (10/16/2021 12:04 PM EDT): [facility] Call: Not taking diuretics 2/2 combination [...] above regimen Atherosclerotic heart diseas e of [place] coronary artery without angina pectoris 09/08/2019 Assessment [...] obesity with BMI of 45.0-49.9, adult 01/2018 [facility] (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 Is able to spanish moss picker new medication today. Usually takes metolazone [...] 01/13/13 PSG -- RDI 5.3 [facility] - [place] Gastroesophageal reflux disease without esophagi tis 11/22/2010 Assessment & Plan (05/09/2022 7:26 AM EDT): Sx controlled with ompeprazole DYSLIPIDEMIA, GOAL LDL BELOW 100 06/26/2009 Overview (06/26/2009): Per Lipid Taxonomy. DM gastroparesis IBS (irritable bowel syndrome) documented as of this encounter (statuses as of 07/04/2024) Resolved Problems Problem Noted Date Diagnosed Date [...] as of this encounter (statuses as of 07/04/2024) Immunizations Name Administration Dates Next Due COVID-19 Whole Virus, Quispe Vac, 2-Dose Series ([employer]) 09/03/2020,08/03/2020 COVID-19 mRNA, LNP-s, No Pre serve, 2-Dose Series ([employer]) 09/02/2020,08/12/2020 HEP A - Hepatitis A (Adult [...] often do you attend chur ch or synagogue services? More than 4 times per year [...] Date Recorded PHQ-2 Score 0 03/08/2019 [facility] [place] of Occupat ional Health - Occupational Stress [...] Care Team (Late st Contact Info) Description 07/04/2024 5:00 AM EST Laboratory Lab Mobile Phlebotomy [facility] [address] [facility] [place] [address] [place] [address] Arrived 08/05/2024 10:30 AM EST Office Visit Ophthalmology, [facility] [address] [place] [address] Henri Beauchamp DO [address] [place] [address] 08/18/2024 3:00 PM EST Office Visit Cardiology [address] [place] [address] Adrianna Huffman PA-C [address] [place] [address] 08/30/2024 12:00 PM EST Office Visit Gastroenterology, [facility] [address] [place] [address] Sandhya Blair CRNP [address] [place] [address] 12/22/2024 10:00 AM EDT Office Visit Sleep Disorders Ctr [facility] [address] [place] [phone] Corinne Carlin CRNP [address] [place] [address] Scheduled Orders Name Type Priority Associated Diagnoses Orde r Schedule CBC Lab Routine Chronic kidney disease (CKD) SMALL (nonalcoholic steatohepatitis) Expected: 07/04/2024, Expires: 07/04/2025 COMPREHENSIVE METABOLIC PANEL Lab Routine Chronic kidney disease (CKD) SMALL (nonalcoholic steatohepatitis) Expected: 07/04/2024, Expires: 07/04/2025 AMMONIA Lab Routine Chronic kidney disease (CKD) SMALL (nonalcoholic steatohepatitis) Expected: 07/04/2024, Expires: 07/04/2025 Scheduled Procedures Name Priority Associated Diagnoses Date/Ti me COLONOSCOPY FLEXIBLE PROXIMA L DIAGNOSTIC Recall History of colonic polyps Health Maintenance Due Date Last Done Comments CKD PHOS USE SMARTSET 64572 1973 Cologuard 2000 Fecal Occult Blood Test [...] 12/0 11/2022, 01/21/2022, Additional history exists GFR 12/26/2024 06/27/2024, 12/0 08/2023, 06/13/2024, Additional history exists CKD HGB USE SMARTSET 02102 06/27/202506/27, 06/20/2024, 06/13/2024, Additional history exists Diabetic Eye Exam 06/30/2025 06/30/2024, , 06/30/2024, Additional history exists Colonoscopy 07/10/2028 07/10/2023, 04/0 [...] goiter Thrombocytopenia (HCC) Thrombocytopenia, unspecified Atherosclerosis of [place] coronary artery without angina pectoris, unspecified whether [place] or transplanted heart Chronic diastolic heart failure [...] of 45.0-49.9, adult (HCC) Morbid obesity Chronic kidney disease (CKD)- Primary Chronic kidney disease, unspecified SMALL (nonalcoholic steatohepatitis) Other chronic nonalcoholic liver disease documented in this encounter Care Teams Film Librarian Relationship Specialty Start Date End Date Oxana Willams MD [address] [place] [address] [place] [address] PCP - General Internal Medicine 08/17/23 documented as of this encounter
--- OUTSIDE RECORDS SUMMARY | 2024-09-29 03:41 | External Medical Summary | Summary of Care ---
Author Name Unknown Organization [facility] Address [address] [facility] [address] Phone [phone] Care Team Providers Care Developer Prover Upholstering Name Role Phone Oxana Willams MD Primary Care Provider [phone] Reason for Visit * Reason Comments NEW PATIENT Diabetic Exam Encounter Details Date Type Department Care Team (Late st Contact Info) Description 06/30/2024 10:45 AM EST Office Visit Ophthalmology, [facility] [address] [facility] [place] [address] Mark Ramos, DO [facility] [place] [address] Type 2 diabetes mellitus with hemoglobin A1c goal of less than 7.0% ([facility])*; Diabetic eye exam ([facility]); Severe nonproliferative diabetic retinopathy of both eyes associated with type 2 diabetes mellitus, macular edema presence unspecified ([facility]); Dry eyes, bilateral; Pseudophakia Allergies Active Allergy Reactions Criticality Noted Date [...] as of this encounter (statuses as of 06/30/2024) Medications DIURETIC TITRATION PLANIndications:Ch ronic diastolic congestive heart failure (HCC) If no improvement on day 3, contact heart failure managing provider or [facility] at home case specialist 1 Each 01/19/20 19 Active Medical Compression [...] 3 12/03/19 22 Active OneTouch Delica Plus [id number] ns:Type 2 diabetes mellitus with hemoglobin A1c goal of less than 8.5% ([facility]) Use as directed . Use [...] topically four times daily as needed 09/23/19 Active Glucagon Emergency 1 MG Injection Kit 08/22/19 Active NovoLOG 100 UNIT/ML Injection Solution Inject under the skin three times a day before meals. Inject 5 units with breakfast, 20 units with lunch, 30 units with supper 09/11/19 Active NovoLIN N FlexPen 100 UNIT/ML Subcutaneous Suspension Pen-injector Inject under the skin daily 50 units in the morning and 35 units in the evening 09/25/19 Active Lidocaine Pain Relief 4 % External Patch Place 1 Patch topically on the skin daily. 10/01/19 Active Omeprazole 20 MG Oral Capsule Delayed Release (PriLOSEC) Take 1 Capsule by mouth in the morning. 09/23/19 Active Acetaminophen ER 650 MG Oral Tablet [...] as of this encounter (statuses as of 06/30/2024) Active Problems Problem Noted Date Diagnosed Date [...] & Plan (10/16/2021 12:04 PM EDT): [facility] Call: Not taking diuretics 2/2 [...] above regimen Atherosclerotic heart diseas e of [place] coronary artery without angina pectoris 09/08/2019 Assessment [...] 01/13/13 PSG -- RDI 5.3 [facility] - [place] Gastroesophageal reflux disease without esophagi tis 11/22/2010 Assessment & Plan (05/09/2022 7:26 AM EDT): Sx controlled with ompeprazole DYSLIPIDEMIA, GOAL LDL BELOW 100 06/26/2009 Overview (06/26/2009): Per Lipid Taxonomy. DM gastroparesis IBS (irritable bowel syndrome) documented as of this encounter (statuses as of 06/30/2024) Resolved Problems Problem Noted Date Diagnosed Date [...] colon 09/17/200901/2018 Overview (10/09/2009): sellile serrated adenoma, [facility], f/u in colonoscopy in 5 [...] as of this encounter (statuses as of 06/30/2024) Immunizations Name Administration Dates Next Due COVID-19 Whole Virus, Quispe Vac, 2-Dose Series ([employer]) 09/03/2020,08/03/2020 COVID-19 mRNA, LNP-s, No Pre serve, 2-Dose Series ([employer]) 09/02/2020,08/12/2020 HEP A - Hepatitis A (Adult [...] week 06/01/2020 How often do you attend [facility] or roman catholic services? More than 4 times per year 06/01/2020 Do you belong to any clubs o r organizations such as mandaen groups, unions, fraternal or athletic groups, or [...] Answer Date Recorded PHQ-2 Score 0 03/08/2019 [facility] [place] of Occupat ional Health - Occupational Stress [...] as of this encounter Progress Notes * Mark Ramos, DO - 06/30/2024 10:45 AM EST 06/30/2024 [facility] Note HPI: Indu Carbone is a 69 year old pt who presents to the eye clinic today as a new patient to [facility] evaluation. Location: OU Severity: Moderate Quality: Worsening vision both eyes Exacerbating/Remitting Factors: Denies Associated Sx: Denies Consult requested for retina specialist by Dr. Caputo Past Ocular History: T2DM w/ severe NPDR OU Pseudophakia OU JOSHUA Eye Medications: Artificial PRN Family Ocular History: Mother - diabetic retinopathy ROS: Pt denies acute vision changes Pt denies new onset double vision Pt denies new MEANS Pt denies new issues surrounding eyes Pt admits to above Please see below for full exam details. Base Eye Exam Visual Acuity (Snellen - Linear) Right Left Dist sc 20/50 -1 20/40 Dist ph sc NI NI Tonometry (Tonopen, 11:06 AM) Right Left Pressure 16 16 Pupils Dark Light Shape React APD Right 6 4 Round Brisk None Left 6 4 Round Brisk None Visual Hopkins (Counting fingers) Right Left Full Full Extraocular Movement Right Left Full Full Dilation Both eyes: 1.0% Mydriacyl, 2.5% Phenylephrine @ 11:06 AM Additional Tests Keratometry K1 [place] K2 [place] Right 40.75 141 46.50 51 Left 40.75 127 42.25 37 Measurements may be inaccurate due to positioning and difficulty obtaining reading Slit Lamp and Fundus Exam External Exam Right Left External Normal Normal Slit Lamp Exam Right Left Lids/Lashes DCL DCL Conjunctiva/Sclera White and quiet White and quiet Cornea Debris in tear film Debris in tear film Anterior Chamber Deep and quiet Deep and quiet Iris Round and reactive Round and reactive Lens PCIOL PCIOL Fundus Exam Right Left Vitreous PVD PVD Disc Normal Normal Macula NON PROFIT FINANCIAL CONTROLLER NON PROFIT FINANCIAL CONTROLLER Vessels Normal Normal Periphery Heme in all 4 quadrants Heme in all 4 quadrants Refraction Manifest Refraction Sphere Cylinder [place] Right -0.50 +0.25 015 Left Unable to obtain measurements OS A/P: Severe NPDR OU ?DME Patient was referred for retina consult Agree w/ diagnosis severe NPDR OU I did not perform OCT today as patient will be having this at next visit Pseudophakia OU -Looks good Dry Eyes, OU -Recommend artificial tears up to 4 times daily -Brand names given - Refresh RT retina appt - 08/05/24 @10:30AM - scheduled or sooner prn. Mark Ramos DO 06/30/24 I spent a total of 10-19 minutes (exact time 15 mins) on the date of service in preparation, delivery, and documentation of the care provided to Indu Carbone excluding any time spent in the performance of separately billed services. documented in this encounter Nursing Notes * Moon Harp COA - 06/30/2024 10:57 AM EST Pt presents to the clinic today as a new patient for a dilated diabetic exam. Pt previously seen by Dr. Tabares in [place]. Paperwork from current assisted living facility reads "moderate NPDR OD & Severe NPDR vs new vascular occlusion - worse OU" Last FBS: 214 Hemoglobin AIC Results: Lab Results Component Value Date/Time HEMOGLOBIN A1C - [facility] 6.8 (H) 07/24/2022 12:30 PM HEMOGLOBIN A1C - [facility] 8.6 (H) 01/21/2022 10:18 AM HEMOGLOBIN A1C - [facility] 8.3 (H) 05/24/2021 02:27 PM HEMOGLOBIN A1C - [facility] 7.9 (H) 06/20/2020 11:09 AM HEMOGLOBIN A1C - [facility] 9.5 (H) 01/19/2020 03:42 PM HEMOGLOBIN A1C - [facility] 9.1 (H) 09/08/2019 11:16 AM \\ documented in this encounter Plan of Treatment Upcoming Encounters Date Type Department Care Team (Late st Contact Info) Description 08/05/2024 10:30 AM EST Office Visit Ophthalmology, [facility] [address] [place] [address] Henri Beauchamp DO [address] [place] [address] 08/18/2024 3:00 PM EST Office Visit Cardiology [address] [place] [address] Adrianna Huffman PA-C [address] [place] [address] 12/22/2024 10:00 AM EDT Office Visit Sleep Disorders Ctr [facility] [address] [place] [phone] Corinne Carlin CRNP [address] [place] [address] Scheduled Procedures Name Priority Associated Diagnoses Date/Ti me COLONOSCOPY FLEXIBLE PROXIMA L DIAGNOSTIC Recall History of colonic polyps Health Maintenance Due Date Last Done Comments CKD PHOS USE SMARTSET 18806 1973 Cologuard 2000 Fecal Occult Blood Test [...] 120 11/2022, 01/21/2022, Additional history exists GFR 12/26/2024 06/27/2024, 08/2023, 06/13/2024, Additional history exists CKD HGB USE SMARTSET 79354 06/27/202506/27, 06/20/2024, 06/13/2024, Additional history exists Diabetic Eye Exam 06/30/2025 06/30/2024, , 06/30/2024, Additional history exists Colonoscopy 07/10/2028 07/10/2023, 040 [...] goiter Thrombocytopenia (HCC) Thrombocytopenia, unspecified Atherosclerosis of [place] coronary artery without angina pectoris, unspecified whether [place] or transplanted heart Chronic diastolic heart failure [...] BMI of 45.0-49.9, adult (HCC) Morbid obesity Type 2 diabetes mellitus with hemoglobin A1c goal of less than 7.0% (HCC)- Primary Diabetic eye exam (HCC) Type II or unspecified type diabetes mellitus without mention of complication, not stated as uncontrolled Severe nonproliferative diabetic retinopathy of both eyes associated with type 2 diabetes mellitus, macular edema presence unspecified (HCC) Dry eyes, bilateral Tear film insufficiency, unspecified Pseudophakia Lens replaced by other means documented in this encounter Care Teams Developer Prover Upholstering Relationship Specialty Start Date End Date Oxana Willams MD [address] [place] [address] [place] [address] PCP - General Internal Medicine 08/17/23 documented as of this encounter
--- OUTSIDE RECORDS SUMMARY | 2024-09-29 03:41 | External Medical Summary ---
Author Name Unknown Address Unknown Organization K01:LABORATORY [facility] - [address] [facility] [address] Laboratory Report Ordering Provider Test Date Status MONICA FERNANDES 07/04/2024 05:23:00 Final Observation Date Value Abnormality Reference (Units ) Status BUN 07/04/2024 05:23:00 31 Above high normal 6-20 (mg/dL) Final Creatinine 07/04/2024 05:23:00 2.0 Above high normal 0.5-1.0 (mg/dL) Final Glomerular filtration rate/1.73 sq M.predicted [Volume Rate/Area] in Serum, Plasma or Blood by Creatinine-based formula (CKD-EPI) 07/04/2024 05:23:00 27 Below low normal >=60 (mL/min) Final eGFR is calculated based on the CKD-EPI 2020 equation. Sodium 07/04/2024 05:23:00 141 135-146 (m mol/L) Final Potassium 07/04/2024 05:23:00 4.9 3.5-5.1 (m mol/L) Final Cl 07/04/2024 05:23:00 111 Above high normal 98 -107 (mmol/L) Final CO2 07/04/2024 05:23:00 23 22-32 (mmo l/L) Final Anion gap 07/04/2024 05:23:00 7 7-15 (mmol /L) Final Glucose 07/04/2024 05:23:00 252 Above high normal 70 -120 (mg/dL) Final Albumin 07/04/2024 05:23:00 2.4 Below low normal 3.8 -5.0 (g/dL) Final AST (Aspartate aminotransferase) 07/04/2024 05:23:00 46 Above high normal 10-35 (U/L) Final Alk Phos 07/04/2024 05:23:00 126 35-130 (U/ L) Final Bilirubin, Total 07/04/2024 05:23:00 0.6 <=1 .2 (mg/dL) Final Calcium 07/04/2024 05:23:00 8.5 8.4-10.2 ( mg/dL) Final Protein 07/04/2024 05:23:00 5.5 Below low normal 6.0 -8.3 (g/dL) Final ALT (Alanine aminotransferase) 07/04/2024 05:23:00 34 10-35 (U/L) [facility] mayo Performing Location LABORATORY [facility] - [address] [facility] [address]
--- OUTSIDE RECORDS SUMMARY | 2024-09-29 03:41 | External Medical Summary ---
Author Name Unknown Address Unknown Organization [facility] [address] [place] [id number] Laboratory Report Ordering Provider Test Date Status MONICA FERNANDES 07/08/2024 05:27:00 Final Observation Date Value Abnormality Reference (Units ) Status BUN 07/08/2024 05:27:00 34 Above high normal 6-20 (mg/dL) Final Creatinine 07/08/2024 05:27:00 2.1 Above high normal 0.5-1.0 (mg/dL) Final Glomerular filtration rate/1.73 sq M.predicted [Volume Rate/Area] in Serum, Plasma or Blood by Creatinine-based formula (CKD-EPI) 07/08/2024 05:27:00 25 Below low normal >=60 (mL/min) Final eGFR is calculated based on the CKD-EPI 2020 equation. Sodium 07/08/2024 05:27:00 140 135-146 (m mol/L) Final Potassium 07/08/2024 05:27:00 4.4 3.5-5.1 (m mol/L) Final Cl 07/08/2024 05:27:00 107 98-107 (mm ol/L) Final CO2 07/08/2024 05:27:00 24 22-32 (mmo l/L) Final Anion gap 07/08/2024 05:27:00 9 7-15 (mmol /L) Final Glucose 07/08/2024 05:27:00 191 Above high normal 70 -120 (mg/dL) Final Calcium 07/08/2024 05:27:00 8.5 8.4-10.2 ( mg/dL) Final Performing Location [facility] [address] [place] [address]
--- NOTE | 2024-09-29 04:38 | Billing Data ---
Date of Service September 29, 2024 Coding Level of Care Code 99429 INT INP/OBS CARE
[2024-09-29] MEDS: ARTIFICIAL TEARS OP SCH (08:32)
[2024-09-29] MEDS ORDERED: buPROPion SR 150 MG TABCR PO SCH (09:00)
--- NOTE | 2024-09-29 09:31 | Palliative Care Consultation ---
Date of Consultation September 29, 2024 Assessment & Plan (1) Palliative care by specialist: Palliative care will continue to follow for ongoing EOL pt care and family support, pt transition to TUBE PUSHER in ED pending hospice evaluation for GIP. (2) Need for comfort care: Patient and family request comfort directed care on 09/28/24 while in ED. She was started on dilaudid drip and admitted for hospice care. (3) Comfort measures only status: EOL Symptom manamgement: Pain/dyspnea/tachypnea dilaudid 0.2mg IVP PRN [id number] continue to titrate dilaudid drip for comfort per protocol - currently at 0.2mg/hr Nausea/vomitting zofran 4mg IVP q4h PRN Agitation ativan 0.5mg IVP q4h PRN Hyperactive delirium haldol 5mg IVP q6h PRN Secretions - if repositioning not effective robinul 0.4mg IV q4h PRN atropine SL 3 drops Q1h PRN Nursing care: Discontinue all medications not directed towards comfort. Detether pt from IV tubing, monitor cables, and check vitals once per shift. Please continue HFNC and titrate down as able for patient comfort. Use medications above PRN for dyspnea/tachypnea and do not increase oxygen once titrated down. Assess q1h for pain/dyspnea and treat accordingly. (4) Encounter for end of life education, guidance and counseling: Met with pt's sister and two sons at bedside. They have requested pt be evaluated by [facility] for GIP. Anticipatory guidance offered. Discussed changes pt may move through in the dying process including but not limited to sleeping more, disorientation when awake, restlessness, diminished senses/inability to respond to stimulus although ability to be aware of them remains intact longer, and changes in body temperatures, skin changes/mottling/cyanosis, respiratory pattern changes, and oral secretions. Family verbalized understanding. The goal is to assure a peaceful . Family mentioned that the pt had been more alert earlier and she was having some hallucinations. Pt's sister shared that she was hungry but her pain was well controlled as long as she did not move. Discussed EOL Rally: When a person facing the end of life rallies, they seem to become "more stable" - may want to talk or even begin taking PO; this phenomenon is usually seen as a sudden burst of energy before . This period of perking up can be accompanied by such a notable change in mental clarity that is often referred to as terminal jonathan cidity. This change in cognition and behavior goes against everything families learn about the physical signs that the end of life is near. It is important to note that evidence-based data is elusive, if nonexistent. Theories support that it may be a search for a final, strong connection. Also, as organs shut down, they can release a steroid like compound that briefly rouses the body - in the specific case of brain tumors, swelling occurs in the confined space of the skull. The edema shrinks as EOL care patients are weaned off food and drink, waking up the brain a bit. Families and caregivers may grasp at what seems to be a turnaround in a loved ones health, however, the EOL Rally is a hallmark pre- sign. It is not uncommon for patients to show improvement before : they may want to talk while others may become restless or act as if they need to start preparing for a trip. Some patients will become more relaxed yet remain tuned in to what is going on around them, others will show signs of physical stability when, seconds before, they seemed on the verge of letting go. A rally can last for a few moments or even days. Short or long, these temporary improvements can have a profound effect on loved ones who are keeping sanchez. Like a moment of clarity for someone who has dementia, a rally is one last opportunity to connect with a loved one. Each persons experience is unique and impossible to predict with total accuracy. Life is full of questions, and some of them simply are not meant to be answered. Plan as above History of Present Illness Reason for Consultation: Comfort directed care, end of life symptom management Requesting Physician: Koki Peña PA-C Attending Physician: Armando Connell MD History of Present Illness Patient is a 69-year-old female with a past medical history of chronic hepatic cirrhosis with portal hypertension, chronic diastolic heart failure, CKD, type II DM on insulin, GARRETT on CPAP. She presented from [facility] 2 days after GLF resulting right displaced comminuted distal femoral shaft fracture. In ED patient and family requested transition to comfort directed care and to stop life-prolonging measures. Allergies Allergy/AdvReac Type Severity Reaction Status Date / Time ciprofloxacin Allergy Intermediate MOUTH Verified 09/28/24 17:59 BLISTERS, HIVES morphine Allergy Intermediate HIVES, Verified 09/28/24 17:59 "DEATHLY ILL", THROWS UP oxycodone Allergy Intermediate HIVES, Verified 09/28/24 17:59 VOMITING penicillin V Allergy Intermediate HIVES Verified 09/28/24 17:59 Home Medications Medication Instructions Recorded Confirmed Type nitroglycerin 0.4 mg sublingual 0.4 mg sublingual DIRECTED PRN 10/10/18 09/28/24 History tablet (Nitrostat) Chest Pain lancets (OneTouch UltraSoft #100 ea 04/05/20 01/12/24 History Lancets) flash glucose scanning reader #1 ea 06/05/20 01/12/24 Rx (FreeStyle Courtney 2 [place]) BD Ultra-Fine Mini Pen Needle 31 #300 ea 10/30/20 01/12/24 Rx gauge x 3/16" (pen needle, diabetic) nadolol 20 mg tablet 10 mg PO BID 10/11/21 09/28/24 History Shower Chair #1 ea 03/28/22 01/12/24 Rx blood sugar diagnostic #100 ea 07/01/22 01/12/24 Rx flash glucose sensor (FreeStyle #2 ea 07/01/22 01/12/24 Rx Courtney 2 Sensor kit) ondansetron 4 mg disintegrating 4 mg PO Q8 PRN NAUSEA/VOMITING 07/14/22 09/28/24 History tablet miscellaneous medical supply #1 ea 07/25/22 01/12/24 Rx lidocaine 4 % topical patch 1 patch topical BID 08/21/22 09/28/24 History rifaximin 550 mg tablet (Xifaxan) 550 mg PO BID 08/21/22 09/28/24 History ascorbic acid (vitamin C) 500 mg 500 mg PO 3XWK 10/16/22 09/28/24 History tablet (Vitamin C) bisacodyl 10 mg rectal suppository 10 mg ME UD PRN GIVE ON DAY 5 OF 10/16/22 09/28/24 History (Dulcolax (bisacodyl)) NO BM. cholecalciferol (vitamin D3) 25 25 mcg PO 3XWK 10/16/22 09/28/24 History mcg (1,000 unit) chewable tablet (Vitamin D3) sodium phosphates 19 gram-7 118 ml ME DAILY PRN GIVE AFTER 10/16/22 09/28/24 History gram/118 mL enema (Fleet Enema) BISACODYL ON DAY 6 NO BM. torsemide 20 mg tablet 20 mg PO 6XWK 10/16/22 09/28/24 History clotrimazole 1 % topical cream 1 applic topical BID 12/30/22 09/28/24 History carboxymethylcellulose sodium 0.5 1 drp ophthalmic (eye) QID 07/03/23 09/28/24 History % eye drops (Refresh Tears) insulin aspart U-100 100 unit/mL 0 unit subcut DIRECTED 07/03/23 09/28/24 History (3 mL) subcutaneous pen (Novolog FlexPen U-100 Insulin aspart) spironolactone 25 mg tablet 25 mg PO 2XWK 07/03/23 09/28/24 History Stable Gi Probiotic 250 mg PO .AC LUNCH 09/28/24 09/28/24 History acetaminophen 500 mg tablet 500 mg PO Q12H PRN Pain 09/28/24 09/28/24 History (Tylenol Extra Strength) albuterol sulfate 90 mcg/actuation 2 puff inhalation Q4H PRN 09/28/24 09/28/24 History aerosol inhaler Shortness Of Breath Or Wheezing bupropion HCl 150 mg tablet,12 hr 150 mg PO DAILY 09/28/24 09/28/24 History sustained-release calamine 3 %-zinc oxide 20 % 1 applic topical HS 09/28/24 09/28/24 History topical cream (Thera Calazinc) conjugated estrogens 0.625 mg/gram 1 applic vaginal HS 09/28/24 09/28/24 History vaginal cream (Premarin) insulin NPH isoph U-100 human 100 40 unit subcut DAILYBB 09/28/24 09/28/24 History unit/mL (3 mL) subcutaneous pen (Novolin N FlexPen) lactulose 10 gram/15 mL oral 20 g PO QID 09/28/24 09/28/24 History solution lidocaine 4 % topical cream 1 applic topical BID 09/28/24 09/28/24 History miconazole nitrate 2 % topical 1 applic topical HS 09/28/24 09/28/24 History powder (Micro-Guard) miconazole nitrate 2 % topical 1 applic topical HS 09/28/24 09/28/24 History powder (Remedy Antifungal) nystatin 100,000 unit/mL oral 4 ml PO TID 09/28/24 09/28/24 History suspension omeprazole 20 mg tablet,delayed 20 mg PO DAILY PRN GERD 09/28/24 09/28/24 History release sodium chloride 0.65 % nasal spray 2 spray intranasal TID 09/28/24 09/28/24 History aerosol (Saline Nasal) tramadol 50 mg tablet 50 mg PO HS 09/28/24 09/28/24 History tramadol 50 mg tablet 50 mg PO Q8H PRN MOD TO SEREVE PAIN 09/28/24 09/28/24 History zinc oxide 40 % topical ointment 1 applic topical HS 09/28/24 09/28/24 History Patient History Medical History [facility] resident SMALL (nonalcoholic steatohepatitis) 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 Heart failure Hepatic encephalopathy Major depressive disorder Fall Constipation Morbid obesity with BMI of 45.0-49.9, adult History of COVID-19 History of anesthesia reaction Nausea and vomiting after administration of anesthetic agent Chronic kidney disease Diverticular disease Osteoarthritis Cancer Occasional tremors Migraine Congestive heart failure Cardiac murmur Surgical History History of total knee replacement Cancer History of bladder surgery History of colonoscopy History of tooth extraction H/O eye surgery H/O esophagogastroduodenoscopy S/P VA-BSO History of appendectomy S/P cholecystectomy Family History Father Diabetes Sister Ovarian cancer Family history of diabetes mellitus Sister Family history of diabetes mellitus Mother Breast cancer Family history of reaction to anesthesia Grandmother (Maternal) Myocardial infarction Uncle Prostate cancer Other Cancer Gallbladder disease Heart disease Hypertension Lung disease Denies family history of Colon cancer Social History Smoking Status: Never smoker Second Hand Exposure: No; Do You Dip or Chew Tobacco: No; Hx Alcohol Use: No Hx Substance Use: No Preferred Language: Romanian Communication Ability: Unable Visual Impairment: No Limitations Hearing Ability: Normal Boat Fueler Required: No Beliefs That Will Affect Care: None marital status: Current Living Situation: Longterm Current Living Situation Comment: roommate at independent living facility current occupational status: retired 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 HEENT: JAIMEE, dry MM; Neck - supple, no appreciable JVD Cardiac: Normal rate and regular rhythm; Pulmonary: decreased resp effort with shallow inspiration and intermittent brief periods of apnea. No use of accessory muscles. Lungs were clear to auscultation bilaterally with no crackles or wheezes. OF NOtE: pt does have Hx of GARRETT MSK: GARCIA, BL edema. Abdominal: Normoactive bowel sounds. Abdomen was soft, nondistended, and non- tender to palpation. Extremities: Upper and lower extremities are warm and well perfused. GARCIA Neuro: on continuous dilaudid infusion, sleeping soundly, did not arouse to verbal or gentle tactile stimuli, did not attempt to aggressively rouse pt in concert with comfort directed care. Results & Data Vital Signs (Past 12 Hours) Vital Signs Temp Pulse Pulse Resp BP Pulse Ox O2 Del Method 09/28/24 22:48 36.5 C 70 16 133/63 95 Room Air 09/28/24 22:30 Nasal Cannula 09/28/24 22:30 36.5 C 70 18 133/63 95 Nasal Cannula 09/28/24 21:33 70 19 96 O2 Flow Rate 09/28/24 22:48 09/28/24 22:30 2 09/28/24 22:30 2 09/28/24 21:33 Laboratory Results No further labs or diagnostics in concert with comfort directed care. Diagnostic Findings No further labs or diagnostics in concert with comfort directed care. Medications Administered Current Inpatient Medications Albuterol (Albuterol Hfa 8 Gm Inhaler) 2 puffs INH Q4H PRN PRN Reason: Shortness Of Breath Or Wheezin Stop: 04/11/25 22:27 Artificial Tears (Artificial Tears) 1 drops OP QID TEMI Stop: 10/29/24 08:59 Last Admin: 09/29/24 12:02 Dose: Not Given Atropine Sulfate (Atropine Sulfate 1% Op Soln 5 Ml Btl) 4 drops SL Q1H PRN PRN Reason: Secretions or pulm congestion Stop: 10/28/24 22:27 Chlorpromazine HCl (Chlorpromazine Hcl 25 Mg Tab) 25 mg PO Q6H PRN PRN Reason: Hiccups Stop: 10/28/24 22:27 Glycopyrrolate (Glycopyrrolate 0.2 Mg/Ml Vial) 0.4 mg IV Q4H PRN PRN Reason: Rattling Secretions or Pulm Congestion Stop: 10/28/24 22:27 Haloperidol (Haloperidol Oral Soln 2 Mg/Ml) 0.5 mg PO Q4H PRN PRN Reason: Anxiety/Agitation Stop: 10/28/24 22:27 Hydromorphone HCl (Hydromorphone Bolus From Bag) 0.2 mg IV Q15M PRN PRN Reason: Comfort Care Parameters Stop: 10/12/24 21:23 Last Admin: 09/29/24 12:37 Dose: 0.2 mg Hydromorphone HCl (Dilaudid) 100 mg in 100 mls @ 0.2 mls/hr IV .Q96H TEMI; Protocol Stop: 10/12/24 21:29 Last Titration: 09/29/24 07:07 Dose: 0.2 mg/hr, 0.2 mls/hr Lidocaine (Lidocaine 5% 1 Patch) 1 patch TD HS [facility] Stop: 10/29/24 20:59 Lorazepam (Lorazepam 2 Mg/1 Ml Vial) 0.5 mg IV Q4H PRN PRN Reason: Anxiety/Agitation Stop: 10/28/24 22:27 Last Admin: 09/29/24 05:32 Dose: 0.5 mg Melatonin (Melatonin 3 Mg Tab) 3 mg PO HS PRN PRN Reason: Sleep Stop: 10/28/24 22:27 Miconazole Nitrate (Miconazole Nitrate Powder 85 Gm) 1 appln TOP [facility] Stop: 10/28/24 22:27 Last Admin: 09/29/24 00:05 Dose: Not Given Miconazole Nitrate (Miconazole Nitrate Powder 85 Gm) 1 appln TOP TuFr@2100 [facility] Stop: 10/30/24 20:59 Miscellaneous (Remove Lidoderm Patch) 1 each N/A DAILY [facility] Stop: 10/29/24 08:59 Last Admin: 09/29/24 08:32 Dose: Not Given Nystatin (Nystatin Susp 500,000 U/5 Ml Udc) 4 ml PO TID [facility] Stop: 10/02/24 20:59 Last Admin: 09/29/24 08:32 Dose: Not Given Ondansetron HCl (Ondansetron Inj 2 Mg/Ml 2 Ml Vial) 4 mg IV Q6H PRN PRN Reason: Nausea And Vomiting Stop: 10/28/24 22:27 Pantoprazole Sodium (Pantoprazole 40 Mg Tab) 40 mg PO QAM [facility] Stop: 10/30/24 08:59 Sodium Chloride (Sodium Chloride 0.65% Na Soln 45 Ml ([place])) 2 sprays NA TID [facility] Stop: 10/28/24 22:27 Last Admin: 09/29/24 08:32 Dose: Not Given PG Care Time/CCT Total # of Minutes Spent Total Time Spent with Patient: Total time spent is greater than 50% in coordination of care (as documented) at patient's floor/unit and/or counseling patient: [place] [address] IN/OBS CONSULT LVL 3,45M Patient Type New History Problem Focused Exam Problem Focused Medical Decision Making Low Complexity Diagnoses Palliative care by specialist Z51.5 Need for comfort care Comfort measures only status Z51.5 Encounter for end of life education, guidance and counseling
--- NOTE | 2024-09-29 15:37 | Hospitalist Progress Note ---
Date of Service September 29, 2024 Assessment & Plan (1) Comfort measures only status: Plan: Appreciate palliative care consultation and recommendations. Continue Dilaudid drip. (2) Femoral neck fracture: Plan: Actually she has a distal right femur fracture that is nonoperative. Supportive care. (3) Cirrhosis: Plan: Nonalcoholic. Supportive care. No further labs. 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 SURFACE MOUNT TECHNOLOGY OPERATOR (5) Chronic diastolic CHF (congestive heart failure): Plan: No further evaluation. SURFACE MOUNT TECHNOLOGY OPERATOR (6) Type 2 diabetes mellitus: Plan: No further evaluation. SEMO Plan Comfort measures only. Supportive care. Continue Dilaudid infusion Admission and Anticipated Discharge Date Admission Date: September 28, 2024 Subjective Unresponsive on Dilaudid drip. Family is at the bedside. She is SURFACE MOUNT TECHNOLOGY OPERATOR status. Hospice apparently saw her and does not feel she is a candidate for inpatient GIP bed and that she can be managed as an outpatient with fentanyl patch and as needed p.o. Dilaudid. Review of Systems 2 Review of Systems: The patient is currently unresponsive and unable to answer any questions regarding review of systems Physical Exam 2 Physical Exam: General-unresponsive. No fever HEENT-head atraumatic and normocephalic Neck-no lymphadenopathy or thyromegaly, trachea midline Chest-clear to auscultation from anterior approach. No rales, wheezing or rhonchi Cardiac-regular rate and rhythm, normal S1 and S2 Abdomen-normal bowel sounds, no hepatosplenomegaly Extremities-no cyanosis, clubbing, or edema Neuro-unresponsive. Cannot assess Psych-unresponsive. Cannot assess Results & Data Results & Data Vital Signs (Past 12 Hours) Vital Signs O2 Del Method O2 Flow Rate 09/29/24 10:32 Nasal Cannula 2 Laboratory Results 09/28/24 16:27 09/28/24 16:27 PG Care Time/CCT Total # of Minutes Spent Total Time Spent with Patient: Total time spent is greater than 50% in coordination of care (as documented) at patient's floor/unit and/or counseling patient: Coding Level of Care Code 61968 SUB INP/OBS CARE 2/35MIN Diagnoses Comfort measures only status Z51.5 Femoral neck fracture S72.009A Cirrhosis K74.60 Chronic kidney disease, stage III (moderate) N18.30 Chronic diastolic CHF (congestive heart failure) I50.32 Type 2 diabetes mellitus E11.9
[2024-09-29] MEDS: LIDOCAINE 5% 1 PATCH TD SCH (19:44)
[2024-09-29] MEDS: ATROPINE SULFATE 1% OP SOLN 5 ML BTL SL PRN (20:45)
[2024-09-30] MEDS: diphenhydrAMINE 50 MG/ML VIAL IV STA (02:59)
[2024-09-30] MEDS: PANTOprazole 40 MG TAB PO SCH (10:37)
--- NOTE | 2024-09-30 13:10 | Hospitalist Progress Note ---
Date of Service September 30, 2024 Assessment & Plan (1) Comfort measures only status: Plan: Appreciate palliative care consultation and recommendations. Continue Dilaudid drip. (2) Femoral neck fracture: Plan: Actually she has a distal right femur fracture that is nonoperative due to multiple comorbidities. Supportive care. (3) Cirrhosis: Plan: Nonalcoholic. Supportive care. No further labs. ORDER ENTRY (4) Chronic kidney disease, stage III (moderate): Plan: No further evaluation. ORDER ENTRY (5) Chronic diastolic CHF (congestive heart failure): Plan: No further evaluation. ORDER ENTRY (6) Type 2 diabetes mellitus: Plan: No further evaluation. SEMO Plan Comfort measures only. Supportive care. Continue Dilaudid infusion Admission and Anticipated Discharge Date Admission Date: September 28, 2024 Subjective The patient remains unresponsive on a Dilaudid drip. Family is at the bedside. Apparently hospice reviewed the chart and states she is not a candidate for GIP status. The family is adamant that she remain on a Dilaudid drip for pain control measures and not return to [facility] at this time. Review of Systems 2 Review of Systems: The patient is currently unresponsive and unable to answer any questions regarding review of systems Physical Exam 2 Physical Exam: General-unresponsive. No fever HEENT-head atraumatic and normocephalic Neck-no lymphadenopathy or thyromegaly, trachea midline Chest-clear to auscultation from anterior approach. No rales, wheezing or rhonchi Cardiac-regular rate and rhythm, normal S1 and S2 Abdomen-normal bowel sounds, no hepatosplenomegaly Extremities-no cyanosis, clubbing, or edema Neuro-unresponsive. Cannot assess Psych-unresponsive. Cannot assess Results & Data Results & Data Vital Signs (Past 12 Hours) Vital Signs O2 Del Method O2 Flow Rate 09/30/24 11:20 Nasal Cannula 2 Laboratory Results 09/28/24 16:27 09/28/24 16:27 PG Care Time/CCT Total # of Minutes Spent Total Time Spent with Patient: Total time spent is greater than 50% in coordination of care (as documented) at patient's floor/unit and/or counseling patient: Coding Level of Care Code 96398 SUB INP/OBS CARE 2/35MIN Diagnoses Comfort measures only status Z51.5 Femoral neck fracture S72.009A Cirrhosis K74.60 Chronic kidney disease, stage III (moderate) N18.30 Chronic diastolic CHF (congestive heart failure) I50.32 Type 2 diabetes mellitus E11.9
--- NOTE | 2024-09-30 13:29 | Palliative Care Progress Note ---
Date of Service September 30, 2024 Assessment & Plan (1) Palliative care by specialist: Plan: Palliative care will continue to follow for ongoing EOL pt care and family support, pt transition to [employer] on 09/29/24. (2) Comfort measures only status: (3) Need for comfort care: Plan: EOL Symptom manamgement: Pain/dyspnea/tachypnea dilaudid 0.2mg IVP PRN [id number] continue to titrate dilaudid drip for comfort per protocol - currently at 0.2mg/hr Nausea/vomitting zofran 4mg IVP q4h PRN Agitation ativan 0.5mg IVP q4h PRN Hyperactive delirium haldol 5mg IVP q6h PRN Secretions - if repositioning not effective robinul 0.4mg IV q4h PRN atropine SL 3 drops Q1h PRN Nursing care: Discontinue all medications not directed towards comfort. Detether pt from IV tubing, monitor cables, and check vitals once per shift. Please continue HFNC and titrate down as able for patient comfort. Use medications above PRN for dyspnea/tachypnea and do not increase oxygen once titrated down. Assess q1h for pain/dyspnea and treat accordingly. Plan a as above Admission and Anticipated Discharge Date Admission Date: September 28, 2024 Subjective Assessed pt at bedside, she was transitioned to [employer] on 09/29/24. Pt is unresponsive to verbal and gentle tactile stimuli, did not attempt to awaken in concert with comfort directed care. She appears comfortable, pale skin, extremities cool to touch, weak distal pulses. Respiratory effort decreased, rate 12/min with frequent brief periods of apnea. large family presence at bedside. Pt's sister expressed gratitude that pt is comfortable and for the care being given. Review of Systems Review of Systems: Unobtainable due to cognitive status Physical Exam Physical Exam: Pt sleeping soundly, did not arouse to verbal or gentle tactile stimuli, did not attempt to aggressively rouse pt in concert with comfort directed care. HEENT: JAIMEE, dry MM; Neck - supple, no appreciable JVD Cardiac: Normal rate and regular rhythm; Pulmonary: decreased resp effort with shallow inspiration and intermittent brief periods of apnea. No use of accessory muscles. Lungs were clear to auscultation bilaterally with no crackles or wheezes. OF NOtE: pt does have Hx of GARRETT MSK: JOSE, BL edema. Abdominal: Normoactive bowel sounds. Abdomen was soft, nondistended, and non- tender to palpation. Extremities: Upper and lower extremities are warm and well perfused. GARCIA Neuro: on continuous dilaudid infusion, sleeping soundly, did not arouse to verbal or gentle tactile stimuli, did not attempt to aggressively rouse pt in concert with comfort directed care. Results & Data Vital Signs (Past 12 Hours) Vital Signs O2 Del Method O2 Flow Rate 09/30/24 11:20 Nasal Cannula 2 Laboratory Results No further labs or diagnostics in concert with comfort directed care. Diagnostic Findings No further labs or diagnostics in concert with comfort directed care. Medications Administered Current Inpatient Medications Albuterol (Albuterol Hfa 8 Gm Inhaler) 2 puffs INH Q4H PRN PRN Reason: Shortness Of Breath Or Wheezin Stop: 10/28/24 22:27 Artificial Tears (Artificial Tears) 1 drops OP QID TEMI Stop: 10/29/24 08:59 Last Admin: 09/30/24 10:37 Dose: Not Given Atropine Sulfate (Atropine Sulfate 1% Op Soln 5 Ml Btl) 4 drops SL Q1H PRN PRN Reason: Secretions or pulm congestion Stop: 10/28/24 22:27 Last Admin: 09/29/24 20:45 Dose: 4 drops Chlorpromazine HCl (Chlorpromazine Hcl 25 Mg Tab) 25 mg PO Q6H PRN PRN Reason: Hiccups Stop: 10/28/24 22:27 Glycopyrrolate (Glycopyrrolate 0.2 Mg/Ml Vial) 0.4 mg IV Q4H PRN PRN Reason: Rattling Secretions or Pulm Congestion Stop: 10/28/24 22:27 Haloperidol (Haloperidol Oral Soln 2 Mg/Ml) 0.5 mg PO Q4H PRN PRN Reason: Anxiety/Agitation Stop: 10/28/24 22:27 Hydromorphone HCl (Hydromorphone Bolus From Bag) 0.2 mg IV Q15M PRN PRN Reason: Comfort Care Parameters Stop: 10/12/24 21:23 Last Admin: 09/30/24 12:02 Dose: 0.2 mg Hydromorphone HCl (Dilaudid) 100 mg in 100 mls @ 0.2 mls/hr IV .Q96H TEMI; Protocol Stop: 10/12/24 21:29 Last Titration: 09/29/24 19:01 Dose: 0.2 mg/hr, 0.2 mls/hr Lidocaine (Lidocaine 5% 1 Patch) 1 patch TD HS TEMI Stop: 10/29/24 20:59 Last Admin: 09/29/24 19:44 Dose: 1 patch Lorazepam (Lorazepam 2 Mg/1 Ml Vial) 0.5 mg IV Q4H PRN PRN Reason: Anxiety/Agitation Stop: 10/28/24 22:27 Last Admin: 09/30/24 07:58 Dose: 0.5 mg Melatonin (Melatonin 3 Mg Tab) 3 mg PO HS PRN PRN Reason: Sleep Stop: 10/28/24 22:27 Miconazole Nitrate (Miconazole Nitrate Powder 85 Gm) 1 appln TOP HS [facility] Stop: 10/28/24 22:27 Last Admin: 09/29/24 19:45 Dose: 1 appln Miconazole Nitrate (Miconazole Nitrate Powder 85 Gm) 1 appln TOP [id number] [facility] Stop: 10/30/24 20:59 Miscellaneous (Remove Lidoderm Patch) 1 each N/A DAILY [facility] Stop: 10/29/24 08:59 Last Admin: 09/30/24 10:37 Dose: 1 each Nystatin (Nystatin Susp 500,000 U/5 Ml Ud) 4 ml PO TID [facility] Stop: 10/02/24 20:59 Last Admin: 09/30/24 10:36 Dose: Not Given Ondansetron HCl (Ondansetron Inj 2 Mg/Ml 2 Ml Vial) 4 mg IV Q6H PRN PRN Reason: Nausea And Vomiting Stop: 10/28/24 22:27 Pantoprazole Sodium (Pantoprazole 40 Mg Tab) 40 mg PO QAM [facility] Stop: 10/30/24 08:59 Last Admin: 09/30/24 10:37 Dose: Not Given Sodium Chloride (Sodium Chloride 0.65% Na Soln 45 Ml (Lavina)) 2 sprays NA TID TEMI Stop: 10/28/24 22:27 Last Admin: 09/30/24 10:37 Dose: Not Given PG Care Time/CCT Total # of Minutes Spent Total Time Spent with Patient: Total time spent is greater than 50% in coordination of care (as documented) at patient's floor/unit and/or counseling patient: Coding [place] [address] SUB INP/OBS CARE 2/35MIN Patient Type Established History Problem Focused Exam Problem Focused Medical Decision Making Low Complexity Diagnoses Palliative care by specialist Z51.5 Comfort measures only status Z51.5 Need for comfort care
[2024-09-30] MEDS: HYDROmorphone BOLUS from BAG IV PRN (16:25)
[2024-09-30] MEDS: MICONAZOLE NITRATE POWDER 85 GM TOP SCH (22:58)
--- NOTE | 2024-10-01 06:09 | Death Pronouncement Note ---
Date of Service October 01, 2024 Pronouncement Note Admission Date September 28, 2024 Date and Time of Date of : 10/01/24 Time of : 06:00 Preliminary Cause of (1) Femoral distal fracture: (2) Chronic diastolic CHF (congestive heart failure): (3) Chronic kidney disease, stage III (moderate): (4) Type 2 diabetes mellitus: (5) Cirrhosis: Summary I was called to pronounce the of Indu Carbone ( 1955) by Anastasia Umana RN on 10/01/2024. Upon entering the room, patient was found to be in a terminal state. They were unresponsive to, and did not withdraw from, verbal or tactile stimuli such as pressing of nail bed and sternal rub. They were unresponsive to corneal, pupillary, and oculocephalic reflexes. On cardiopulmonary exam, they were found to be without detectable carotid pulses, and without spontaneous heart tones or respirations. Time of was pronounced by me on 10/01/2024 at 06:00 Attending physician was notified. Patient's sister (Jennifer) and son (Chiki) at bedside, and allowed time with the patient. Additional Data Attending physician: Manjinder Chun MD Resident Activity Tracking Resident Involvement: Resident Care Provided Care Provided: Adult Hospital Medicine
--- NOTE | 2024-10-03 07:47 | Discharge Summary ---
Discharge Summary Date of Service October 03, 2024 Principal Dx & Hospital Course #1 = Principal Diagnosis (1) Comfort measures only status: Appreciate palliative care consultation and recommendations. Continue Dilaudid drip. (2) Femoral neck fracture: Actually she has a distal right femur fracture that is nonoperative due to multiple comorbidities. Supportive care. (3) Cirrhosis: Nonalcoholic. Supportive care. No further labs. [employer] (4) Chronic kidney disease, stage III (moderate): No further evaluation. [employer] (5) Chronic diastolic CHF (congestive heart failure): No further evaluation. [employer] (6) Type 2 diabetes mellitus: No further evaluation. 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 She presented from [facility] after a fall resulting in the ED right displaced comminuted distal femoral shaft fracture. After extensive discussion with patient and her sister, patient would like to go for comfort/hospice measures with pain control and to stop life-prolonging measures. Patient is being admitted for IV pain control and titrate palliative consult. Patient may prefer to not go back to [facility], case management consulted. Patient seen at bedside with her sister present. They were tearful. Patient had extensive discussion with her family earlier including her son, Chiki, who is her power of real estate attorney. She stated that she has been weak with the flu and bronchitis for about a week and nursing staff was assisting her to the bathroom when her knee and ankle gave out causing her to fall to the floor. She had difficulty getting up and stated that her leg may have turned behind her. They were able to assist her to her wheelchair and then brought her to the ED due to significant pain. She stated after receiving Tylenol 1000 Mg IV and fentanyl 50 mcg IV she still has 10/10 pain across her right leg and back. She denies any dizziness, lightheadedness, chest pain, shortness of breath. Extensively discussed comfort care and hospice care. Patient's has leukemia and broke his hip 6 weeks ago and has transferred to comfort care at [facility] as well. This is what she would also like. She is unsure if she would like to go back to [facility] versus have continuous care for pain control. She does not think she would want any more life prolonging measures but is unsure about insulin control and hepatitis control, to be discussed with palliative medicine. Her main goal is pain control and to pass peacefully and without pain. She understands that she has liver disease, kidney disease, obesity and that surgical intervention would be high risk. She wishes to be DNR/DNI. Patient stated she has not been taking spironolactone for several weeks because it makes her throw up. She is unsure if she has been getting Lasix. Reviewed records from [facility], no mention of any home medications just past diagnoses. She stated she typically has difficulty with swallowing and has some dysphagia, aspiration precautions. She also is undergoing treatment for thrush that was supposed to begin today, will continue for comfort reasons. She stated that she has some ascites that she was told was unable to be drained due to high risk. Discharge Exam Not applicable Discharge Plan Discharge Items Patient Disposition: Other Date/Time: 10/01/24 06:00 Hospital Stay Data Consultations 09/28/24 20:00 ED Decision to Admit Stat 09/28/24 20:07 ED Decision to Admit Stat 09/28/24 22:28 Consult Palliative Care Routine Diagnostic Imagining Performed 09/28/24 17:26 CT cervical spine wo con Stat CT head/brain wo con Stat Total Time Total Time Spent Total Time Spent (In Minutes): 20 minutes Coding Level of Care Code 16137 IN/OBS DISCH 30 MIN/LESS Diagnoses Comfort measures only status Z51.5 Femoral neck fracture S72.009A Cirrhosis K74.60 Chronic kidney disease, stage III (moderate) N18.30 Chronic diastolic CHF (congestive heart failure) I50.32 Type 2 diabetes mellitus E11.9
== END 2024-10-01 10:03 | disposition expired | DRG 951 ==
LOC: ED 16:12 → SUATTDRO 20:58 → 3N 20:58